=== PATIENT | female | born 1955 | race Caucasian/White ===

== ENCOUNTER 2018-01-04 02:47 | Emergency (ER) | payer OTHER, SELFPAY ==
[2018-01-04 02:47] VITALS: BP 134/71; PULSE 61; RESP 19; TEMP 37.1; O2SAT 96; BMI 35.1
[2018-01-04 03:27] LABS: Bacteria 0 SEEN /hpf (None Seen); Mucous, Urine 0 SEEN /hpf (<or=2+); Red Blood Cells-Urine 0 SEEN /hpf (0-5); Squamous Epithelial Cells - UA 0 SEEN /hpf (5-10); White Blood Cells 0 SEEN /hpf (0-5)
[2018-01-04 03:30] LABS: Absolute Lymphocyte Count 2.03 X10^3/ul (0.83-4.51); Absolute Neutrophil Count 3.3 X10^3/uL (2.0-7.7); Basophil# 0.02 X10^3/uL; Basophil% 0.3 % (0-1); Eosinophil# 0.19 X10^3/uL; Eosinophils% 3.1 % (0-5); Hematocrit 39.8 % (37-47); Hemoglobin 13.2 g/dl (12.0-15.0); Lymphocyte # 2.03 X10^3/ul (4.0); Lymphocyte % 33.1 % (19-41); Mean Corp Hgb Conc 33.2 g/gl (32-36); Mean Corpuscular Hgb 29.4 pg (27.0-32.0); Mean Corpuscular Volume 88.6 fL (81-99); Mean Platelet Vol. 10.1 fl (6.2-12.0); Monocyte# 0.61 X10^3/uL; Neutrophil # 3.27 X10^3/uL (2.7-7.7); Neutrophil % 53.3 % (47-70); Platelet Count 216 K/mm3 (150-450); RBC Distribution Width CV 14.4 % (11.6-14.6); RBC Distribution Width SD 46.6 fl (35.1-43.9); Red Blood Count 4.49 M/mm3 (4.2-5.4); White Blood Count 6.1 K/mm3 (4.4-11.0)
[2018-01-04 03:32] LABS: POSITIVE COUNT NO; POSITIVE DIFFERENTIAL NO; POSITIVE MORPHOLOGY NO
[2018-01-04 03:40] LABS: Color, Urine Straw (Yellow); Glucose, Dipstick Normal (Normal); Ketone-Dipstick Negative (Negative); Leukocyte Esterase-Dipstick 25 /ul (Negative); Nitrite-Dipstick Negative (Negative); Occult Blood-Urine 25 /ul (Negative); Protein-Dipstick Negative (Negative); Urine Bilirubin Dipstick Negative (Negative); Urine Clarity Clear (Clear); Urine Urobilinogen Normal (Normal)
[2018-01-04 03:49] LABS: Anion Gap 8 (5-15); BUN 17 mg/dL (7-18); BUN/Creat Ratio 19.1 RATIO (10-20); Calcium,Total 8.7 mg/dL (8.5-10.1); Chloride 109 mmol/L (98-107); Creatinine, Serum 0.89 mg/dL (0.55-1.02); EST Glomerular Filtration Rate 69 mL/min (>60); Est Glom Filt Rate - Afr Amer 83 mL/min (>60); Estimated Creatinine Clearance 62.14 ml/min; Glucose 121 mg/dL (74-106); Potassium 4.1 mmol/L (3.5-5.1); Sodium Level 144 mmol/L (136-145)
[2018-01-04 07:17] VITALS: BP 121/74; PULSE 60; RESP 18; O2SAT 94
[2018-01-04] MEDS: 0.9% Normal Saline 1,000 ML 200 ML IV (07:17)
--- NOTE | 2018-01-04 07:30 | ED.VISSUMM ---
- ER Visit Summary Date of Service: 01/04/18 Chief Complaint: Abdominal pain History of Present Illness: The patient is a 62 F patient states sudden right lower abdominal pain burning in nature starting at midnight. More intense initially now it is mild. No nausea or vomiting. No diarrhea. Had a bowel movement midnight states helped her symptoms. No fever, chills, sweats. Still with right lower back pain for years with with movement. No urinary symptoms. No history of kidney stones. No surgeries in the past. Patient states had a colonoscopy this past October by Dr. Brand that was negative. States she has been having on and off similar symptoms in the past with workups that were negative. However states is more intense this evening. Past medical history of GERD and hypothyroid. Physical Examination: General: Alert and oriented ?3, no acute distress HEENT: Normocephalic, atraumatic. Moist mucosa membranes Neck: supple, nontender. Cardiovascular: Regular rate and rhythm, no murmurs Respiratory: Normal breath sounds, symmetric, no distress Abdomen: Soft, mild tenderness right lower quadrant, no rebound or guarding. Normal bowel sounds. Negative Rovsing's, negative obturators, negative psoas. Back: No CVA tenderness. No rash. Extremities: Nontender, no edema, pulses intact ?4 Neuro: no focal neurological deficits. Test Results: WBC 6.1 hemoglobin 13.2. Urine leukocytes 25 blood of 25. Noncontrast CT scan negative, however no visualization of the appendix. Oral contrast focal CT of the appendix ordered and is pending. Emergency Department Course and Treatment: Patient declines any medications. IV is placed check labs shows no acute findings. Noncontrast CT was negative with nonvisualized appendix. Reevaluation at 0545, states had mild increasing pain however abdomen remains soft without guarding or rebound. Discussed with patient obtaining re-CT with oral contrast for further evaluation for which she agrees. She declines any additional medications. IV fluids were given. 0800: Contrast CT notes normal appendix. Reevaluation symptoms subsided she is nontender abdomen. Discussed with patient signs and symptoms to return to the ED. Otherwise should follow-up with her PCP. All questions were answered. Treatment Plan: [] Disposition: Discharge Impression: Right lower quadrant abdominal pain This note was generated with [employer] dictation software. It may contain incorrect words, spelling, and punctuation that were not noted in review of the chart prior to signing ED Disposition - Plan for ED Patient: Disposition: Home or Assisted Living Chief Complaint: Abd Pain Diagnosis: Right lower quadrant abdominal pain Instructions: ED Abdominal Pain Unkn Cause Referrals: Larry Holbrook [Primary Care Provider] - 3-5 Days
[2018-01-04 08:26] VITALS: BP 124/74; PULSE 62; RESP 16; O2SAT 97
== END 2018-01-04 08:30 | disposition home or self-care (01) ==
PROVIDERS: Emergency Provider Emergency Medicine; Family Provider Family Medicine; PCP Family Medicine
DX: R10.31 Right lower quadrant pain (principal); K21.9 Gastro-esophageal reflux disease without esophagitis; E03.9 Hypothyroidism, unspecified; M54.5 Low back pain
CPT/HCPCS: 72192; 74176; 80048; 81001; 85025; 96360; 96361; 99283; J7030; A4216

== ENCOUNTER 2020-04-29 15:59 | Emergency (ER) | payer OTHER, SELFPAY ==
[2020-04-29 16:00] VITALS: BP 156/82; PULSE 79; RESP 16; TEMP 36.2; O2SAT 98; BMI 32.4
--- NOTE | 2020-04-29 16:12 | ED.VIS.GEN ---
History of Present Illness Chief Complaint: Upper Extremity Injury Narrative: Patient is a 64-year-old female who presents with a left wrist fracture. She was moving a ladder this morning and fell onto her left side. She called her primary care physician and had outpatient x-rays done. He called her today and said that she did have a wrist fracture and to go to the emergency department for further care. She denies any numbness tingling weakness. She denies any head injury loss of consciousness injury to the extremities chest abdomen or back. She is not anticoagulated. She otherwise has been well with no recent illness and no other complaints. Past Medical History - Allergies and Home Meds Allergies/Adverse Reactions: Allergies Penicillins Allergy (Verified 04/29/20 16:01) Unknown Primary Care Physician: Larry Holbrook MD [Primary Care Provider] - Past Medical History: - - GERD, hypothyroidism, hyperlipidemia Smoking Status: Never smoker Review of Systems All systems negative except as indicated General: Denies: Fever Eyes: Denies: Visual changes - bilaterally ENT: Denies: Bilateral ear pain Cardiovascular: Denies: Chest pain Respiratory: Denies: Dyspnea Gastrointestinal: Denies: Abdominal pain Musculoskeletal: Reports: Extremity Pain Skin: Denies: Rash Neurological: Denies: Headache Physical Exam Vital Signs/Narrative: Vital Signs Temp Pulse Resp BP Pulse Ox 04/29/20 16:00 97.1 F L 79 16 156/82 H 98 Inital Vital Signs reviewed: Yes General: Well nourished Head: Normocephalic Eyes: EOMI ENT: Moist mucous membranes Neck: Supple Cardiovascular: Regular rate Respiratory: No distress Extremities: - - Patient has soft tissue swelling and tenderness at the left wrist no bony deformity easily palpable radial pulse brisk capillary refill normal sensation and distal motor function no tenderness at the hand elbow or shoulder Skin: Normal color Neurological: Alert Diagnostic/Tx/Re-eval Impressions Wrist X-Ray 04/29/20 16:15 IMPRESSION: Fracture distal radius Electronically Signed: Brent Peña MD at 16:34 EST , Service support , 04/29/20 16:15 Wrist min 3 Views [RAD] Stat - Medical Decision Making 3 view left wrist x-ray was obtained. On my interpretation this shows an impacted distal radius fracture. Patient was placed in an AP Ortho-Glass wrist splint fabricated by myself. Wrist x-ray read by radiology agrees with radius fracture. Patient is neurovascularly intact after splint application. Pain is well controlled. She was advised on anti-inflammatory if she does not believe she will need anything stronger. Patient was referred to orthopedics on-call, Dr. Armenta. Patient discharged. She understands to return for new or worsening symptoms was advised on signs and symptoms to monitor for including with regards to the splint. ED Disposition - Plan for ED Patient: Disposition: Home or Assisted Living Diagnosis: Distal radius fracture, left Instructions: ED Fracture, Wrist, General Referrals: Larry Holbrook MD [Primary Care Provider] - Herbert Armenta DO [STAFF PHYSICIAN] -
--- NOTE | 2020-04-29 16:15 | RAD_ITS ---
STUDY: X-RAY - LEFT WRIST REASON FOR EXAM: Female, 64 years old. fall, left wrist pain TECHNIQUE: 3 view(s) of the wrist were obtained. COMPARISON: None. FINDINGS: Nondisplaced comminuted intra-articular fracture distal radius. Normal radiocarpal articulation. Normal distal radioulnar articulation. Normal carpal bones. Normal carpal articulations. Normal carpometacarpal articulation of the thumb. Normal second through fifth carpometacarpal articulations. Normal visualized metacarpal bones. The soft tissue structures are unremarkable. RAD/Wrist min 3 Views IMPRESSION: Fracture distal radius Electronically Signed: Brent Peña MD at 16:34 EST , Service support ,
[2020-04-29 17:01] VITALS: BP 145/77; PULSE 72; RESP 18
== END 2020-04-29 17:02 | disposition home or self-care (01) ==
PROVIDERS: Emergency Provider Emergency Medicine; PCP Family Medicine
DX: S52.592A Other fractures of lower end of left radius, initial encounter for closed fracture (principal); E03.9 Hypothyroidism, unspecified; E78.5 Hyperlipidemia, unspecified; K21.9 Gastro-esophageal reflux disease without esophagitis; Z88.0 Allergy status to penicillin; W18.30XA Fall on same level, unspecified, initial encounter; Y92.9 Unspecified place or not applicable; Y99.9 Unspecified external cause status
CPT/HCPCS: 29125; 73110; 99282

== ENCOUNTER → 2020-05-08 07:52 | Outpatient (CLI) | payer OTHER, SELFPAY ==
[2020-05-04 14:09] VITALS: BMI 32.4
[2020-05-06 11:56] VITALS: BMI 32.4
--- NOTE | 2020-05-08 07:51 | CT_ITS ---
STUDY: CT SCAN OF THE LEFT WRIST WITHOUT CONTRAST REASON FOR EXAM: Female, 64 years old. LT WRIST FRACTURE 04/29 RADIATION DOSAGE (If Supplied By Facility): CTDIvol = ( 24.58 ) mGy, DLP = ( 382.37 ) mGycm. Individualized dose optimization techniques were used for this CT.? TECHNIQUE: Multiple axial cuts were obtained through the region of the wrist without intravenous contrast infusion. Sagittal and coronal reconstruction images were obtained. COMPARISON: Radiographs of the wrist of 04/29/2020. FINDINGS: Comminuted intra-articular nondisplaced fracture of the distal radius is again seen. The distal ulna is intact. The distal radioulnar articulation is unremarkable. The carpal bones appears to be intact. The carpal articulations is unremarkable. The carpometacarpal joints are unremarkable. There is still is in cast. There is soft tissue swelling. CT/Extremity Upper without Contra IMPRESSION: 1. Comminuted intra-articular nondisplaced fracture of the distal radius. 2. Small nondisplaced chip fracture of the triquetrum. 3. No evidence of dislocation. Electronically Signed: Ish Ramos MD at 8:43 EST Tel , Service support ,
== END ==
PROVIDERS: PCP Family Medicine; Referring Provider Physician Assistant; Visit Provider Physician Assistant
DX: S52.502A Unspecified fracture of the lower end of left radius, initial encounter for closed fracture (principal)
CPT/HCPCS: 73200

== ENCOUNTER 2020-05-12 08:05 | Day surgery (SDC) | payer OTHER, SELFPAY ==
[2020-05-06 11:56] VITALS: BMI 32.4
--- NOTE | 2020-05-11 13:19 | EKG12_ITS ---
Test Reason : PREOP Blood Pressure : / mmHG Vent. Rate : 061 BPM Atrial Rate : 061 BPM P-R Int : 174 ms QRS Dur : 086 ms QT Int : 428 ms P-R-T Axes : 067 049 061 degrees QTc Int : 430 ms Normal sinus rhythm Normal ECG Confirmed by PARK CHINO, ALDAIR ([id number]), index editor KAYLA DARDEN ([id number]) on 05/12/2020 9:26:29 AM Referred By: Mel Hale Confirmed By:ALDAIR NICK MD
[2020-05-11 13:47] LABS: Hematocrit 41.4 % (37-47); Hemoglobin 13.1 g/dL (12.0-15.0); Mean Corp Hgb Conc 31.6 g/dL (32-36); Mean Corpuscular Hgb 28.7 pg (27.0-32.0); Mean Corpuscular Volume 90.8 fL (81-99); Mean Platelet Vol. 9.7 fl (6.2-12.0); Platelet Count 230 K/mm3 (150-450); RBC Distribution Width CV 14.3 % (11.6-14.6); RBC Distribution Width SD 47.9 fl (35.1-43.9); Red Blood Count 4.56 M/mm3 (4.2-5.4); White Blood Count 5.7 K/mm3 (4.4-11.0)
[2020-05-12] VITALS (7 sets, daily range): BP systolic 107–126; BP diastolic 62–71; PULSE 60–75; RESP 15–16; TEMP 36.1–36.3; O2SAT 92–98; BMI 33.8
[2020-05-12] MEDS: Lactated Ringers 1,000 ML 100 ML IV ×2 (08:51→11:56)
--- NOTE | 2020-05-12 09:25 | PCM.HP.BLA ---
History and Physical I have re-examined the patient. There are no clinical changes since date of exam. Intake Intake Visit Reasons: LEFT WRIST Is patient in pain?: Yes Allergies Penicillins Allergy (Mild, Verified 05/10/20 09:31) Rash [facility] Medical History (Updated 05/04/20 @ 14:15 by Felicia Payne) Hypothyroid (Acute) Surgical History (Updated 05/04/20 @ 14:13 by Felicia Payne) H/O laparoscopy (Acute) Family History (Updated 05/04/20 @ 14:14 by Felicia Payne) Father Diabetes Mother Parkinson disease Social History (Updated 05/10/20 @ 11:36 by NISA Haney) household members: spouse housing: house Smoking Status: Never smoker alcohol intake: never what type of physical activity do you participate in: none do you feel safe at home: Yes HPI LEFT WRIST: Details: Parts of this documentation were recorded by a scribe, this documentation accurately reflects the service provided and the decisions made by me, NISA Navas 05/10/20 0930. ALFRED DE PAZ is a 64 year old F here today for a followup on her left wrist fracture. Patient states that her pain is decreasing and she is not taking any pain medications. She continues to have finger swelling although it has decreased. Denies numbness, tingling or other associated symptoms. She has not removed her splint. She had a CT scan which is here for review. [facility] ([place] Reports joint pain, Reports joint swelling, Reports stiffness Skin/Breast Reports system reviewed and no additional complaints, except as docu Neuro Yes system reviewed and no additional complaints, except as docu Ortho Exam Right Wrist/Hand Skin/Wound: Yes Swelling, No Ecchymosis Left Wrist/Hand Skin/Wound: Yes Swelling, No Ecchymosis, Yes capillary refill normal, No erythema Left Wrist: Yes TTP Fracture site; no ROM-Extension 0-60, no ROM-Flexion 0-80, no ROM-Pronation 0-80 or no ROM-Supination 0-90 WRIST: Patient presents for recheck of left wrist. Wrist was still immobilized in a clamshell splint. This was taken down quick inspection of the left wrist. No ecchymosis noted. Still some minor swelling as well as puffiness in the fingers. She does have normal sensation in fingers. Normal capillary refill. Normal distal radial pulses. There is evident tenderness on palpation of distal radius at the site of fracture. Patient had intact motor function of the fingers with some decreased to swelling and stiffness. Normal flexion and extension of the elbow. Did not evaluate pronation and supination due to fracture. Assessment & Plan Problems 1. Other closed intra-articular fracture of distal end of left radius with routine healing, subsequent encounter S52.959O Plan Patient presents the office today for follow-up of her left wrist fracture following CT scan. Images as well as impression were discussed with patient in office today. Images show evidence of comminuted intra-articular fracture of the distal radius with minimal displacement. At this time we discussed the concerns with comminution and the length of time it takes to heal this and the concerns with radiocarpal arthritis as well as any change due to shortening from osteoporosis. At this time with the intra-articular component and the other neck of the fracture it is warranted that she proceed with ORIF of the left distal radius. Risks and benefits of the surgery were discussed with patient including blood loss, blood clot, infection, neurovascular injuries, failure of procedure, loss of limb loss of life from anesthesia as well as COVID-19 risks. Patient understands these and all of her questions were answered to her satisfaction today. Surgical consent was signed in office today. Patient be contacted by our office to set up surgery date. She will be contacted by surgery department for preanesthesia/presurgery testing to include a COVID-19 test. Patient has any other questions she can notify our office in the meantime. I did discuss again with patient that I will have to discuss with his surgeon and make sure that his implant however we did discuss this at her previous visit to include the surgeon and that was tentative plan at that point. Patient will follow up in our office postop as directed. No other questions or concerns at this time. This note was generated with [employer] dictation software. It may contain incorrect words, spelling, and punctuation that were not noted in checking the note before signing. Coding Level of Care Code Off vis,est,level 2 Diagnoses Other closed intra-articular fracture of distal end of left radius with routine healing, subsequent encounter S59.324F ??Encounter type: subsequent encounter ??Fracture type: closed ??Fracture morphology: other intra-articular ??Fracture healing: with routine healing
--- NOTE | 2020-05-12 09:26 | PCM.DC.ORTHO ---
Discharge Diet: No Restrictions - Leave dressing clean dry and intact, may use fingers as tolerated, call with concerns Discharge Activity: May Not Drive May shower in (days): 1 Ice area for (Minutes): 20 - Every hour while awake. Weight Bearing Status: Weight bearing as tolerated Keep extremity elevated above heart level: Operative Extremity Call your doctor if your incision/area has: Continuous Slow Oozing, Sudden Increased Bleeding, Increased Pain/ Swelling, Increased Redness, Foul Smelling Discharge Call your doctor if you observe: Fever of 101 or Higher, Coldness, Increased Pain, Numbness or Tingling, Change in Color, Calf discomfort Allergies/Adverse Reactions: Allergies Penicillins Allergy (Mild, Verified 05/12/20 08:07) Rash Medications to take at Discharge levothyroxine 50 mcg tablet 50 mcg PO DAILY tab 05/04/20 meloxicam 15 mg tablet 15 mg PO DAILY tab 05/04/20 omeprazole 20 mg capsule,delayed release 20 mg PO DAILY PRN 05/04/20 rosuvastatin 10 mg tablet 5 mg PO DAILY tab 05/04/20 Oxycodone HCl/Acetaminophen [Percocet 5/325] 1 - 2 tab PO Q6H PRN PRN 5 Days #28 tab 05/12/20 The following prescriptions were given: Oxycodone HCl/Acetaminophen [Percocet 5/325] 1 - 2 tab PO Q6H PRN PRN 5 Days #28 tab PRN Reason: Pain Transmission Status: Received by [facility] Primary Care Physician: Larry Holbrook MD [Primary Care Provider] - Test Results: Test results from this visit will be discussed in further detail at your follow-up appointment, if applicable. Please Follow Up With: Mel Hale, - [phone]
--- NOTE | 2020-05-12 09:26 | PCM.OPRPT ---
Report of Operation Date of Procedure: 05/12/20 Pre-Operative Diagnosis: left intraarticular distal radius fracture Post-Operative Diagnosis: same Surgery/Procedure Performed:: orif left distal radius belt turner: None belt turner: Robbie Sanches Type of Anesthesia:: General/Regional Anesthesiologist: Salomón Steele Estimated Blood Loss (mL): min Fluids Replaced: 1000ml lr Description of Procedure: Preop note Patient is a 64-year-old female fell onto left outstretched hand. Pain deformity seen in the emergency room to have a distal radius fracture seen in our office CT scans confirms intra-articular component patient elected proceed with left ORIF. Risk benefits and alternative surgery discussed with patient. Risk including but not not limited to blood loss, blood clot, infection, neurovascular, failure procedure, loss of life and loss of limb. Patient is aware likely with ORIF of the left wrist. Operative note Patient seen and examined preoperative holding area. Left wrist was marked. Patient brought to the operating placed supine on the operating table. 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 Left arm was prepped and draped usual sterile technique with a tourniquet around her upper thigh arm. All bony promises well-padded SCDs placed on her bilateral lower extremity. We marked our incision for our distal radius ORIF using fluoroscopy to ensure adequate distal and proximal extension. The remains also palpated the FCR to ensure that was over the FCR tendon. We then elevated exsanguinated the arm to a pressure of 200 and to increase the tourniquet to a pressure of 250 torr. Timeout was performed. Then made about a 4 cm incision starting at the wrist crease and about and extending proximally. We dissected down with tenotomies the level of the FCR FCR was then released and brought ulnarly ensuring that we protected all neurovascular structures at all times. Then continue our dissection down to level the pronator quadratus was excised sharply off of its radial border. We then use a carroll elevator to swept off the bone. We did visualize our fracture which was reduced with combination of a bone pick and irrigation. We then fixated a narrow angled 2.4 distal radius Synthes plate. We placed 2 cortical screws in the lunate facet as preoperatively we did ascertain that that was a piece that was most depressed we did flex the wrist at all during this to maintain and increase her anatomic alignment. Noted in multiple planes good anatomical alignment in both AP lateral and 20degree lateral as well. After placing the 2 cortical screws limit limit would also place filled and the remaining distal screws then placed our 2 shaft screws. Please note that prior to placing our cortical screws in the distal aspect of the plate we did secure the plate to the bone using 2 K wires and then made sure that the plate was at adequate distance from the watershed area and both distal and proximal area. We then drilled 1.8 for our distal and then the two-point note for our 2.4 cortical screws. We irrigated with copious muscle sterile saline please note that we drilled and measured appropriately for all screw holes and then used fluoroscopy to make sure that we had good length and no articular breach of the screws. We then deflated the tourniquet to ensure there is no active bleeding which there was none. We then irrigated and irrigated the incision with copious sterile saline we closed use a 2-0 Vicryl to tack the pronator quadratus down to its periosteum over the plate. We then closed the skin with 4-0 Vicryl in a running 4-0 Monocryl. Sterile dressings and a splint was applied to the left lower upper extremity. Patient taught procedure well no complications transferred recovery room. see chart for screw lengths Postoperative note Please note patient received a preoperative regional block Pharmacy has prescription We will call Call with increased pain numbness tingling or further issues arise Dragon disclaimer this note was generated with [employer] dictation software. It may contain incorrect words, spelling, and punctuation that were not noted in checking the note before signing. Grafts/Implants Used: synthes 2.0 dcp plate
--- NOTE | 2020-05-12 09:59 | RAD_ITS ---
STUDY: X-RAY - LEFT WRIST REASON FOR EXAM: ORIF distal radial fracture. TECHNIQUE: 3 intraoperative images of the wrist were obtained. COMPARISON: Radiographs 04/29/2020. FINDINGS: There is an orthopedic plate and screws transfixing a distal radial fracture in anatomical alignment and position. Electronically Signed: Keith Reich MD at 14:14 EST Tel , Service support , RAD/Wrist min 3 Views
[2020-05-12] MEDS: Mupirocin Ointment 22gm Tube 1 APPLIC (10:56)
== END 2020-05-12 14:00 | disposition home or self-care (01) ==
LOC: SDC 08:05 → AC 08:06
PROVIDERS: Anesthesiology; PCP Family Medicine; Referring Provider Orthopaedic Surgery; Visit Provider Orthopaedic Surgery
PROC: (CPT 25608; principal; 2020-05-12 09:15)
DX: S52.572D Other intraarticular fracture of lower end of left radius, subsequent encounter for closed fracture with routine healing (principal); W19.XXXD Unspecified fall, subsequent encounter; E03.9 Hypothyroidism, unspecified; Z88.0 Allergy status to penicillin
CPT/HCPCS: 01830; 25608; 36415; 73110; 76000; 84443; 85027; 87426; 93005; C1713; C9803; J7120; J2405

== ENCOUNTER 2020-08-12 15:30 | Outpatient (RCR) | payer OTHER, SELFPAY ==
[2020-05-25 09:37] VITALS: BMI 32.4
--- NOTE | 2020-06-02 15:29 | HP.OTEVAL_ITS ---
Patient's Visit Information ALFRED DE PAZ is a 64 year old F, referred to Occupational Therapy by Dr. Larry Holbrook MD, with a diagnosis of left distal radius fx. Date of Evaluation: 06/02/20 Occupational Therapist: SYLVIA Arizmendi/Bennie, CHT - Subjective This 64 year old female was seen for OT eval with dx of left distal radius fx. pt states she was moving a ladder and pts had a fall. 04/29/20. pt had ORIF on 2020. pt arrives today with limited ROM of wrist and digits along with forearm. pt has concerns with swelling and what she is allowed to do with her arm. 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 Pt will demo an increase in lateral and tripod pinch by 2# to increase pts independent with opening baggies, containers at PLOF by D/C. Goal:: Pt will demo an increase in wrist ROM equal to unaffected wrist to return pt to PLOF with grooming, dressing and home mtg tasks by D/C. Pt will demo an increase in forearm supination by 60* or greater to increase pts ind. With ADls and IADLS by d/c. Pt will demo the ability to form a composite fist to return to performing BADLs and IADLS at PLOF by d/c. Goal:: Pt will report pain no greater than 1/10 with use of affected hand with BADLs and IADLs by d/c. Goal:: Pt will demo the ability to form a composite fist to hold and receive 10 coins without dropping coins/ and coin manipulation/money mtg. tasks and ind. With manipulating fasteners for dressing by D/C. Goal:: Pt will demo understanding of edema control techniques by end of 2nd session and perform recommendations to control edema. pt will demo a reduction in edema by .5cm to increase pts ROM of digits by d/c Goal:: Pt will demo understanding of scar mtg. by end of 2nd session to increase tissue extensibility to limit scar adhesions and allow full tendons function by d/c. - Rehabilitation General Assessment: pt s/p 3 weeks ORIF of left distal radius fx. pt demo with edema, limited left forearm, wrist and digit ROM increasing need of assist with ADls and IADls. pt would benefit from skilled OT services 2-3 x week for 6 weeks to return pts ROM and strength to functional abilities. Today therapist ed. pt on AROM/ AAROM of left UE, forearm, wrist and digits- edema control and scar mtg. pt demo understanding and agree to POC. Rehabilitation Potential: Good - Anticipated Interventions A/AAROM/PROM, Strengthening, Edema Control, Scar Care, Triggerpoint Release, Desensitization, Sensory Retraining, Modalities, Orthoses, Joint Protection/Energy Conservation, Fine Motor Coord/Wallace - Visit Plan Frequency: 2-3x /Week Duration: 6 Weeks TEXT: Thank you for the opportunity to evaluate your patient. For Medicare and Medicare HMO plans, please review the plan of care and approve it. It will need to be FAXED BACK to us at [phone] for Medicare purposes. Please let me know if there are questions or concerns regarding this plan of care. Physician Signature: Date:
--- NOTE | 2020-11-09 07:51 | HP.OTDCSUM_ITS ---
It has been my pleasure to treat ALFRED DE PAZ under orders from Dr. Mel Hale DO, for the diagnosis of left distal radius fx for a total of 17 visit(s). Please see the following information for a summary of their discharge status. % Improvement: 25 Objective/Function: left wrist 65/50. left UD 30 RD 30. 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 left lateral pinch 12#. left tripod pinch 10# Patient Goals: Regain Mobility, Use Hand/Wrist/Arm Normally Again, Increase ROM, Be More Independent in ADLS Goal:: PT will demo an increase in building and grounds supervisor strength by 20# to increase independent with basic occupations of daily living to return pt to PLOF by D/C. Pt will demo an increase in lateral and tripod pinch by 2# to increase pts independent with opening baggies, containers at PLOF by D/C. Goal:: Pt will demo an increase in wrist ROM equal to unaffected wrist to return pt to PLOF with grooming, dressing and home mtg tasks by D/C. Pt will demo an increase in forearm supination by 60* or greater to increase pts ind. With ADls and IADLS by d/c. Pt will demo the ability to form a composite fist to return to performing BADLs and IADLS at PLOF by d/c. Goal:: Pt will report pain no greater than 1/10 with use of affected hand with BADLs and IADLs by d/c. Goal:: Pt will demo the ability to form a composite fist to hold and receive 10 coins without dropping coins/ and coin manipulation/money mtg. tasks and ind. With manipulating fasteners for dressing by D/C. Goal:: Pt will demo understanding of edema control techniques by end of 2nd session and perform recommendations to control edema. pt will demo a reduction in edema by .5cm to increase pts ROM of digits by d/c Goal:: Pt will demo understanding of scar mtg. by end of 2nd session to increase tissue extensibility to limit scar adhesions and allow full tendons function by d/c. Plan: pt to follow up in 2 weeks - it is now 11/09/20 and pt has not called with questions or concerns pt is d/c at this time with her HEP. If there are questions or concerns regarding this patient's occupational therapy, please fell free to call me at [phone]. Thank you for the referral of this patient. Sincerely, Mariely Alonso, OTR/L, CHT
== END 2020-08-12 19:00 | disposition home or self-care (01) ==
LOC: OT 15:30
PROVIDERS: PCP Family Medicine; Referring Provider Orthopaedic Surgery; Visit Provider Orthopaedic Surgery
DX: Z47.89 Encounter for other orthopedic aftercare (principal)
CPT/HCPCS: 97110; 97140; 97166; 97530

== ENCOUNTER 2020-12-30 10:00 | Outpatient (RCR) | payer OTHER, SELFPAY ==
--- NOTE | 2020-08-24 07:07 | HP.PTEVAL_ITS ---
Patient's Visit Information ALFRED DE PAZ is a 65 year old F referred to Physical Therapy by Dr. Larry Holbrook MD with a diagnosis of Tendinopathy of rotator cuff, LBP with L sciatica. Date of Evaluation: 08/23/20 Physical Therapist: Isra Eddy DPT - Visit Plan Frequency: 2x /Week Duration: 4 Weeks Plan: Increase AROM and PROM for bilateral shoulders. Scapular stregthening exercises for both shoulders, UBE, Kinesis strengthening exercises. - Subjective Pt had a fall 04/29/2020 and fell onto L side when trying to move a ladder over. She has surgery 05/12/2020 on wrist ORIF. Patient is right handed. She has L shoulder pain and LBP that radiates into L gluteal region. Closing/opening her car door increases her pain as well as reaching out to get food at fast foot restaurants. She states pain is mainly in the lateral portion of her shoulder and can radiate down distally, also at anterior portion by the coracoid process; it feels weird. Certain movements (flexion, abduction, ER) give her an ugly dull pain. When she lets her arm hang down, pain will subside. LBP is most present at end of day when shes walked longer distances. She has had back pain persiting for 1+ years. She saw a Dr. for it, xray showed some arthritis. She has pain that extends down into her Left leg. Her LBP is not bad in the morning. She has issues with sleep due to shoulder and arm pain. Extension movements doesnt help her back pain; she tends to flex forward to try to alleviate her symptoms. 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 She wants to get back to [employer]. - Pain L shoulder Pain Intensity (Out of 10): 2 Pain Intensity Range: 2, 10 Lumbar spine Pain Intensity (Out of 10): 0 Pain Intensity Range: 0, 10 - Objective Shoulder. ROM: AROM: R flex: 121 degrees -very painful L flex: 113 degrees- minor pain compared to R shoulder R abd: 105 degrees L abd:103 degrees R ER: 42 degrees L ER: 38 degrees. Max limited IR AROM and Max limited ER AROM. -PROM was more painful than AROM for L shoulder; all 4 directions limited in motion due to pain; L shoulder ABD PROM 90 degrees. - lowering arms down gave her pain bilaterally. -pain and limited ROM with R shoulder too due to overuse from L wrist/shoulder injury. MMT: R shoulder F: 4-/5 L shoulder F: 3+/5 R shoulder abd: 3+/5 L shoulder abd: 3+/5 R shoulder IR: 5/5 L shoulder IR: 5/5 R shoulder ER: 4+/5 L shoulder IR: 4-/5. Neuro: WNL sensation bilaterally; 1/3 biceps tendon reflex. Palpation: tender to light touch at L coracoid procress at biceps tendon and supraspinatus tendon. - will do lumbar spine eval next session - Goals Goal 1:: STG: Decrease pain by 50% in left shoulder to aid with sleeping through the night. Goal Time Frame: 2-4 Weeks Goal 2:: LTG: Decrease pain by 75% bilaterally in shoulders so patient can resume caring for grandchildren. Goal Time Frame: 4-6 Weeks Goal 3:: STG: Increase AROM of R and L shoulder flexion and abduction by 10-15 degrees. Goal Time Frame: 2-4 Weeks Goal 4:: LTG: Increase L shoulder strength by 1-2 muscle grade to aid in caring for grandchildren and ADLs. Goal Time Frame: 4-6 Weeks Goal 5:: LTG: I with HEP. Goal Time Frame: 4-6 Weeks Goal 6:: STG: Asses L sided sciatica next visit. Goal Time Frame: 1 Week - Rehabilitation Potential Physical Therapy Diagnosis: Pain, weakness and decreased ROM bilaterally secondary to tendinopathy of rotator cuff. She had a fall on 04/29/2020 which could have been a cause for RTC pathology or irritation of supraspinatus tendon/proximal biceps tendon. Pt. would benefit from PT to increase her ROM, progress strength and get back to all functional use of LUE. Unable to asses L sciatica this date due to time constraints, will asses next visit. Rehabilitation Potential: Good - Anticipated Interventions Patient/Client Instruction: Educate patient on: Condition, Plan of Care For the Purpose of:: To decrease pain, To decrease swelling/inflammation, To increase ROM, To improve muscle performance and motor function, To improve ability to perform ADL's, To improve ability of physical actions for home/community/work/leisure, To increase flexibility/ROM Therapeutic Exercise to Include: Strength training, Postural training, Passive ROM, Active ROM, Dynamic Lumbar Stabilization, Scapular Strength/Stabilization For the Purpose of:: To decrease pain, To decrease swelling/inflammation, To increase ROM, To improve muscle performance and motor function, To improve ability to perform ADL's, To increase flexibility/ROM Manual Therapy Techniques to Include: Passive ROM For the Purpose of:: To increase ROM, To increase flexibility/ROM Cryotherapy (ice pack, ice massage): Yes Thermo therapy (hot pack): Yes Ultrasound (thermal/non thermal): Yes For the Purpose of:: To decrease pain, To decrease swelling/inflammation Thank you for the opportunity to evaluate your patient. For Medicare and Medicare HMO plans, please review the plan of care and approve it. It will need to be FAXED BACK to us at [phone] for Medicare purposes. For Medicare only, by signing this I certify the plan of care. Please let me know if there are questions or concerns regarding this plan of care. Physician Signature: Date:
--- NOTE | 2020-09-28 08:40 | HP.PTREVAL ---
Dr. Larry Holbrook MD, It has been my pleasure to treat ALFRED DE PAZ over the last 9 visits for Tendinopathy of rotator cuff, LBP with L sciatica. Please see the progress note below for an update on the physical therapy plan of care! Subjective: Pt. reports overall doing much better, but is still having greater pain in her back and L sciatica. Pt. reports overall her shoulder is doing better, but still has some twinges if she moves the wrong way. Pt. is more concerned about her LBP and L leg pain at this point in time. She reports her L shoulder is 75% better overall, but her back is only 25% better. Objective/Function: L shoulder ROM: flexion 155deg, abd 155deg, ext- 50deg, functional ER C6, functional IR L3. 4+/5 strength throughout. I would still like her to strengtening and add in some end range stretching for her L shoulder. Pt. agrees. LUMBAR SPINE: flexion min loss increase NW, exten min loss decrease better, SB min loss mild increase NW bilat, rotation min loss increase NW bilat. СВЕТЛАНА- reduced symptoms, REIL- better reduction in symptoms. REIL with PT overpressures decrease even further. Pt. had no pain in prone lying, but did start to come back in standing, but less than previously. Pt. has marked core weakness as well. Plan Plan: I would like to continue with her POC with focus on her lumbar spine at this point in time. Pt. would benefit from extension progression and neutral spine core stability. With her L shoulder I would like her to continue with RTC and deltoid strengthening and continue with end range stretching. Goals Goal 1:: STG: Decrease pain by 50% in left shoulder to aid with sleeping through the night. Goal Time Frame: 2-4 Weeks Goal Progress: Goal Met Goal 2:: LTG: Decrease pain by 75% bilaterally in shoulders so patient can resume caring for grandchildren. Goal Time Frame: 2-4 Weeks Goal Progress: Progressing Goal 3:: STG: Increase AROM of R and L shoulder flexion and abduction by 10-15 degrees. Goal Time Frame: 2-4 Weeks Goal Progress: Goal Met Goal 4:: LTG: Increase L shoulder strength by 1-2 muscle grade to aid in caring for grandchildren and ADLs. Goal Time Frame: 4-6 Weeks Goal Progress: Progressing Goal 5:: LTG: I with HEP. Goal Time Frame: 4-6 Weeks Goal Progress: Progressing Goal 6:: LTG: pt. to have reduced L sided sciatica pain to 0-2/10 pain in L leg allowing for good tolerance to walking and recreational activities. Goal Time Frame: 2-4 Weeks Goal Progress: Progressing Anticipated Interventions Patient/Client Instruction: Educate patient on: Condition, Plan of Care For the Purpose of:: To decrease pain, To decrease swelling/inflammation, To increase ROM, To improve muscle performance and motor function, To improve ability to perform ADL's, To improve ability of physical actions for home/community/work/leisure, To increase flexibility/ROM Therapeutic Exercise to Include: Strength training, Postural training, Passive ROM, Active ROM, Dynamic Lumbar Stabilization, Scapular Strength/Stabilization For the Purpose of:: To decrease pain, To decrease swelling/inflammation, To increase ROM, To improve muscle performance and motor function, To improve ability to perform ADL's, To increase flexibility/ROM Manual Therapy Techniques to Include: Passive ROM For the Purpose of:: To increase ROM, To increase flexibility/ROM Cryotherapy (ice pack, ice massage): Yes Thermo therapy (hot pack): Yes Ultrasound (thermal/non thermal): Yes For the Purpose of:: To decrease pain, To decrease swelling/inflammation Please do not hesitate to contact me at [phone] by phone or if you have questions or concerns regarding this new plan of care! Sincerely, Isra Eddy DPT
--- NOTE | 2020-10-22 10:44 | HP.PTREVAL_ITS ---
Dr. Larry Holbrook MD, It has been my pleasure to treat ALFRED DE PAZ over the last 17 visits for Tendinopathy of rotator cuff, LBP with L sciatica. Please see the progress note below for an update on the physical therapy plan of care! Subjective: Pt. reports overall doing well. She is having less pain in her shoulder, but is still having some days that her back is bothering her. She is having more days that are good than bad, but is still having some bad days. Pt. reports no pain currently. Pt. reports being 70% better overall. Objective/Function: Pt. is overall doing better, she is still having some issues with her her L hip and lumbar spine. Pt. has improved L hip ROM, decreased pain in piriformis with hip IR/ER today. She is still stiff with extension and has provided some relief. She is progressing with core stability exercises as well. Plan Plan: Pt. to be seen in 1 week to determine if she can self manage at this point in time. Goals Goal 1:: STG: Decrease pain by 50% in left shoulder to aid with sleeping through the night. Goal Time Frame: 2-4 Weeks Goal Progress: Goal Met Goal 2:: LTG: Decrease pain by 75% bilaterally in shoulders so patient can resum e caring for grandchildren. Goal Time Frame: 2-4 Weeks Goal Progress: Progressing Goal 3:: STG: Increase AROM of R and L shoulder flexion and abduction by 10-15 degrees. Goal Time Frame: 2-4 Weeks Goal Progress: Goal Met Goal 4:: LTG: Increase L shoulder strength by 1-2 muscle grade to aid in caring for grandchildren and ADLs. Goal Time Frame: 4-6 Weeks Goal Progress: Goal Met Goal 5:: LTG: I with HEP. Goal Time Frame: 4-6 Weeks Goal Progress: Goal Met Goal 6:: LTG: pt. to have reduced L sided sciatica pain to 0-2/10 pain in L leg allowing for good tolerance to walking and recreational activities. Goal Time Frame: 2-4 Weeks Goal Progress: Progressing Anticipated Interventions Patient/Client Instruction: Educate patient on: Condition, Plan of Care For the Purpose of:: To decrease pain, To decrease swelling/inflammation, To increase ROM, To improve muscle performance and motor function, To improve ability to perform ADL's, To improve ability of physical actions for home/c ommunity/work/leisure, To increase flexibility/ROM Therapeutic Exercise to Include: Strength training, Postural training, Passive ROM, Active ROM, Dynamic Lumbar Stabilization, Scapular Strength/Stabilization For the Purpose of:: To decrease pain, To decrease swelling/inflammation, To increase ROM, To improve muscle performance and motor function, To improve ability to perform ADL's, To increase flexibility/ROM Manual Therapy Techniques to Include: Passive ROM For the Purpose of:: To increase ROM, To increase flexibility/ROM Cryotherapy (ice pack, ice massage): Yes Thermo therapy (hot pack): Yes Ultrasound (thermal/non thermal): Yes For the Purpose of:: To decrease pain, To decrease swelling/inflammation Please do not hesitate to contact me at [phone] by phone or if you have questions or concerns regarding this new plan of care! Sincerely, BARBARA StinsonT
--- NOTE | 2020-12-30 15:43 | HP.PTREVAL ---
Dr. Larry Holbrook MD, It has been my pleasure to treat ALFRED DE PAZ over the last 22 visits for Tendinopathy of rotator cuff, LBP with L sciatica. Please see the progress note below for an update on the physical therapy plan of care! Subjective: Pt. reports overall doing better, but still has occurrence of pain going down her leg, but less. Pt. reports being HEP compliant. Objective/Function: ROM: lumbar spine: Pt. has good ROM throughout, ext mod loss increase extension, but does feel like this makes her better. Pt. has tight B hip ER motions, but does tend to increase her L glute pain. MMT: core strenght- poor. BLEs 4+/5 throughout distal LEs, 4/5 throughout B hips. She is progressing but, not quite there with her extension progression. Overall feels improvement for a few days after PT, but starts to come back again then. Plan Plan: Pt. to be seen in 1 week to determine if she can self manage at this point in time. Balance/Gait/Functional tests - Balance/Special Test Scores Quick DASH Score: 9.0900 Goals Goal 1:: STG: Decrease pain by 50% in left shoulder to aid with sleeping through the night. Goal Time Frame: 2-4 Weeks Goal Progress: Goal Met Goal 2:: LTG: Decrease pain by 75% bilaterally in shoulders so patient can resume caring for grandchildren. Goal Time Frame: 2-4 Weeks Goal Progress: Progressing Goal 3:: STG: Increase AROM of R and L shoulder flexion and abduction by 10-15 degrees. Goal Time Frame: 2-4 Weeks Goal Progress: Goal Met Goal 4:: LTG: Increase L shoulder strength by 1-2 muscle grade to aid in caring for grandchildren and ADLs. Goal Time Frame: 4-6 Weeks Goal Progress: Goal Met Goal 5:: LTG: I with HEP. Goal Time Frame: 4-6 Weeks Goal Progress: Goal Met Goal 6:: LTG: pt. to have reduced L sided sciatica pain to 0-2/10 pain in L leg allowing for good tolerance to walking and recreational activities. Goal Time Frame: 2-4 Weeks Goal Progress: Progressing Anticipated Interventions Patient/Client Instruction: Educate patient on: Condition, Plan of Care For the Purpose of:: To decrease pain, To decrease swelling/inflammation, To increase ROM, To improve muscle performance and motor function, To improve ability to perform ADL's, To improve ability of physical actions for home/community/work/leisure, To increase flexibility/ROM Therapeutic Exercise to Include: Strength training, Postural training, Passive ROM, Active ROM, Dynamic Lumbar Stabilization, Scapular Strength/Stabilization For the Purpose of:: To decrease pain, To decrease swelling/inflammation, To increase ROM, To improve muscle performance and motor function, To improve ability to perform ADL's, To increase flexibility/ROM Manual Therapy Techniques to Include: Passive ROM For the Purpose of:: To increase ROM, To increase flexibility/ROM Cryotherapy (ice pack, ice massage): Yes Thermo therapy (hot pack): Yes Ultrasound (thermal/non thermal): Yes For the Purpose of:: To decrease pain, To decrease swelling/inflammation Please do not hesitate to contact me at [phone] by phone or if you have questions or concerns regarding this new plan of care! Sincerely, BARBARA StinsonT
--- NOTE | 2021-04-06 10:30 | HP.PTDCNRP_ITS ---
ALFRED DE PAZ was seen in my office for initial evaluation on 08/23/20. The following Plan of Care was established for this patient: Initial Frequency: 2x /Week Initial Duration: 4 Weeks Patient/Client Instruction: Educate patient on: Condition, Plan of Care For the Purpose of:: To decrease pain, To decrease swelling/inflammation, To increase ROM, To improve muscle performance and motor function, To improve ability to perform ADL's, To improve ability of physical actions for ho me/community/work/leisure, To increase flexibility/ROM Therapeutic Exercise to Include: Strength training, Postural training, Passive ROM, Active ROM, Dynamic Lumbar Stabilization, Scapular Strength/Stabilization For the Purpose of:: To decrease pain, To decrease swelling/inflammation, To increase ROM, To improve muscle performance and motor function, To improve ability to perform ADL's, To increase flexibility/ROM Manual Therapy Techniques to Include: Passive ROM For the Purpose of:: To increase ROM, To increase flexibility/ROM Cryotherapy (ice pack, ice massage): Yes Thermo therapy (hot pack): Yes Ultrasound (thermal/non thermal): Yes For the Purpose of:: To decrease pain, To decrease swelling/inflammation This patient was last seen in our office 12/30/20. Pertinent comments regarding their Physical therapy will appear below: Pt. was seen in PT for both her shoulder and sciatica symptoms. Pt. was doing well initially, but started to levels off. She was independent with her HEP and was to continue on her own. She was to trial for a few weeks to see if she can self manage. Pt. has not been seen in several months and will be DC from PT at this point in time. At this point I will be discontinuing this patient from physical therapy. I would be happy to see this patient again in the future if found appropriate by the physician. Thank you! Isra Eddy, DPT Balance/Gait/Functional tests - Balance/Special Test Scores Quick DASH Score: [phone]
== END 2020-12-30 19:00 | disposition home or self-care (01) ==
LOC: PT 10:00
PROVIDERS: PCP Family Medicine; Referring Provider Family Medicine; Visit Provider Family Medicine
DX: M67.919 Unspecified disorder of synovium and tendon, unspecified shoulder (principal); M54.42 Lumbago with sciatica, left side
CPT/HCPCS: 97012; 97035; 97110; 97140; 97161; 97164; 97530

== ENCOUNTER 2021-03-02 09:30 | Emergency (ER) | payer OTHER, SELFPAY ==
[2021-03-02 09:31] VITALS: BP 149/80; PULSE 69; RESP 16; TEMP 36.3; O2SAT 98; BMI 31.6
--- NOTE | 2021-03-02 09:51 | EDS_ITS ---
HPI History of Present Illness Chief Complaint: Back Informant: patient Narrative Narrative: Patient has been having pain in her left low back for a long time, she states it has been worse in the last several days. She has seen her doctor for this pain in the past, she has had x-rays that may be showed some age- related arthritis, and he try to get an MRI but she states it was denied by insurance. In the last several days she has had worsening of the symptoms, they are going down her left lower leg, and in the last several days into her left thigh and left lower quadrant area. No numbness or tingling including the saddle area. No bowel or bladder dysfunction. Sitting seems to hurt a little worse and make her left lower extremity painful. PFSH PFSH Medical History Hypothyroid Home Medications levothyroxine 50 mcg tablet 50 mcg PO DAILY tab 05/04/20 [History Last Taken 05/12/20] omeprazole 20 mg capsule,delayed release 20 mg PO DAILY PRN 05/04/20 [History Last Taken 05/12/20] rosuvastatin 10 mg tablet 5 mg PO DAILY tab 05/04/20 [History Last Taken Unknown] methylprednisolone 4 mg tablets in a dose pack See Rx Instructions PO PER PKG DIR #21 tab 06/25/20 [Rx Last Taken Unknown] hydrocodone-acetaminophen 1 tab PO Q4H PRN PRN 2 Days #10 tablet 03/02/21 [Rx La st Taken Unknown] prednisone 40 mg PO DAILY #12 tablet 03/02/21 [Rx Last Taken Unknown] Allergy/AdvReac Type Severity Reaction Status Date / Time Penicillins Allergy Mild Rash Verified 03/02/21 09:33 Family History (Updated 05/04/20 @ 14:14 by Felicia Payne) Father Diabetes Mother Parkinson disease Surgical History H/O laparoscopy Social History household members: spouse housing: house Smoking Status: Never smoker alcohol intake: never what type of physical activity do you participate in: none do you feel safe at home: Yes ROS ROS ED Constitutional Constitutional ED: Denies chills or fever(s) Gastrointestinal Gastrointestinal: Denies abdominal pain, constipation, fecal incontinence, nausea or vomiting Genitourinary Genitourinary ED: Reports other Details: no urinary retention ; Denies abdominal discomfort or urinary incontinence Musculoskeletal Musculoskeletal: Reports as per HPI, back pain and extremity pain; Denies neck pain Integumentary Denies rash or wounds Neurologic Neurologic: Denies headache(s), paresthesias or weakness EXAM Physical Exam Const Vital Signs: 03/02/21 09:31 Temperature 97.4 F L Temperature Source Temporal Pulse Rate 69 Respiratory Rate 16 Blood Pressure 149/80 H Blood Pressure Mean 103 Pulse Ox 98 Oxygen Delivery Method Room Air Positive well nourished and well developed General Appearance ED: well developed and NAD HEENT Negative for trauma or tenderness Eyes PERRL and EOMs intact bilaterally Neck full ROM and supple GI normal to inspection, nondistended, normoactive bowel sounds, soft to palpation and non-tender Back/Spine normal to inspection Thoracic Spine / Upper Back: Negative for paraspinal muscle tenderness Lumbar Spine / Lower Back: normal to inspection, ROM limited and straight leg raise negative bilaterally; Negative for lumbar spinal tenderness or paraspinal muscle tenderness Extremity normal to inspection, full ROM and no pedal edema Neuro oriented x3, no sensory deficits noted and gait normal Sensorium / Orientation: alert Motor Exam: strength 5/5 throughout and clonus absent Deep Tendon Reflexes: Rt Patellar (L4): 1+, Lt Patellar (L4): 1+, Rt Ankle (S1): 1+ and Lt Ankle (S1): 1+ Deep Tendon Reflexes Back: Rt Patellar (L4): 1+, Lt Patellar (L4): 1+, Rt Ankle (S1): 1+ and Lt Ankle (S1): 1+ Plantar Reflex: Downgoing: bilateral Psych mental status grossly normal and thought process normal Skin no rashes or lesions noted and no wounds MDM MDM MDM Narrative Medical decision making narrative: This patient does not have any red flag features, and her symptoms are consistent with sensory radiculopathy. Her abdomen is benign and nontender I do not think she needs to be worked up for diverticulitis at this time. She has no GI symptoms. I think symptomatic care is appropriate and I will try her on a course of steroids since she is not a diabetic and less likely to have adverse side effects from a week or less prescription. I advised her to follow-up with her doctor, since her symptoms are worsening, she may now qualify for MR imaging which I think is the next best test. Discharge Plan Triage Chief Complaint: Back ED Provider: Cm Vasques Dx/Rx/DC Orders Clinical Impression: Acute left-sided back pain with sciatica Instructions: ED Sciatica Prescriptions: New hydrocodone-acetaminophen [hydrocodone-acetaminophen] 1 TABLET tablet 1 tab PO Q4H PRN PRN (Reason: Pain) 2 Days Qty: 10 RF: 0 prednisone 20 MG tablet 40 mg PO DAILY Qty: 12 RF: 0 No Action levothyroxine 50 mcg tablet 50 mcg PO DAILY RF: 0 rosuvastatin 10 mg tablet 5 mg PO DAILY RF: 0 methylprednisolone [Medrol (Max)] 4 mg tablets,dose pack See Rx Instructions PO PER PKG DIR Qty: 21 RF: 0 omeprazole 20 mg capsule,delayed release(DR/EC) 20 mg PO DAILY PRN (Reason: GERD) RF: 0 Primary Care Provider: Larry Holbrook Referrals: Larry Holbrook MD [Primary Care Provider] - 3-5 Days Disposition Disposition: Home, Self Care
== END 2021-03-02 10:20 | disposition home or self-care (01) ==
LOC: ED 10:15
PROVIDERS: Emergency Provider Emergency Medicine; PCP Family Medicine
DX: M54.42 Lumbago with sciatica, left side (principal); E03.9 Hypothyroidism, unspecified; Z79.52 Long term (current) use of systemic steroids
CPT/HCPCS: 99282

== ENCOUNTER → 2021-03-24 08:34 | Outpatient (CLI) | payer OTHER, SELFPAY ==
--- NOTE | 2021-03-24 08:39 | RAD_ITS ---
STUDY: X-RAY - ESOPHAGUS (BARIUM SWALLOW) WITH FLUOROSCOPY REASON FOR EXAM: Female, 65 years old. DYSPHAGIA TECHNIQUE: 23 view(s) of the esophagus were obtained following swallowing of barium. FLUOROSCOPY TIME (if supplied): (42 seconds) minutes/seconds COMPARISON: None. FINDINGS: There is no demonstrated esophageal foreign body. There is no demonstrated stricture or mucosal abnormality. Normal gastroesophageal junction, without a demonstrated hiatal hernia. The patient ingested a 12 mm tablet of barium. The barium is trapped at the gastroesophageal junction. There is atherosclerotic tortuosity of the aortic arch and descending thoracic aorta. Normal visualized pulmonary parenchyma. Normal visualized osseous structures of the thorax. RAD/Esophagus Dual Contrast IMPRESSION: The ingested 12 mm tablet of barium is trapped at the gastroesophageal junction. Electronically Signed: Dax Guy MD at 13:34 EST , Service support ,
== END ==
PROVIDERS: PCP Family Medicine; Referring Provider Internal Medicine Gastroenterology; Visit Provider Internal Medicine Gastroenterology
DX: R13.10 Dysphagia, unspecified (principal)
CPT/HCPCS: 74221

== ENCOUNTER 2022-01-28 07:56 | Emergency (ER) | payer MEDICARE, BC, SELFPAY ==
[2022-01-28 07:57] VITALS: BP 139/82; PULSE 55; RESP 16; TEMP 36.6; O2SAT 99; BMI 35.4
--- NOTE | 2022-01-28 08:09 | EDS_ITS ---
HPI History of Present Illness Chief Complaint: Abd Pain Informant: patient Narrative Narrative: 66-year-old female presenting to the emergency room with right-sided abdominal pain. Symptoms began yesterday. They have been constant. She describes a burning-like sensation right side of her abdomen. She notes that yesterday she had steak for lunch and fried fish for dinner. Nothing seems to make it better or worse. She notes nausea but no vomiting no change in bowel habits or urinary symptoms. She has not had any prior abdominal surgeries. No fevers. She states that today it felt better when she got up but was still there so she wanted to be evaluated. [facility] Medical History Hypothyroid Home Medications levothyroxine 50 mcg tablet 50 mcg PO DAILY 05/04/20 [History Last Taken 05/12/20] omeprazole 20 mg capsule,delayed release 20 mg PO DAILY PRN GERD 05/04/20 [History Last Taken 05/12/20] rosuvastatin 10 mg tablet 5 mg PO DAILY 05/04/20 [History Last Taken Unknown] methylprednisolone 4 mg tablets in a dose pack (Medrol (Max)) See Rx Instructions PO PER PKG DIR #21 tabs 06/25/20 [Rx Last Taken Unknown] hydrocodone-acetaminophen 5-325mg 5mg-325mg 1 tab PO Q4H PRN PRN Pain 2 days #10 TABLETS 03/02/21 [Rx Last Taken Unknown] prednisone 20 mg tablet 40 mg PO DAILY #12 TABLETS 03/02/21 [Rx Last Taken Unknown] Allergy/AdvReac Type Severity Reaction Status Date / Time Penicillins Allergy Mild Rash Verified 01/28/22 07:57 Family History Father Diabetes Mother Parkinson disease Surgical History H/O laparoscopy Social History household members: spouse housing: house Smoking Status: Never smoker alcohol intake: never what type of physical activity do you participate in: none do you feel safe at home: Yes ROS ROS ED Constitutional Constitutional ED: Denies chills or weight loss Eyes Eyes: Denies change in vision or diplopia ENT ENT ED: Denies ear pain, rhinorrhea or sore throat Cardiovascular Cardiovascular: Denies chest pain, orthopnea, palpitations or racing heartbeat Respiratory/Chest Respiratory/Chest: Denies cough, dyspnea or orthopnea Gastrointestinal Gastrointestinal: Reports abdominal pain and nausea; Denies constipation, diarrhea, melena or vomiting Genitourinary Genitourinary ED: Denies dysuria, hematuria or urinary frequency Musculoskeletal Musculoskeletal: Denies arthralgias or myalgias Integumentary Denies abscess or rash Neurologic Neurologic: Denies headache(s) or weakness Psychiatric Psychiatric: Denies anxiety, depression, suicidal ideation or suicidal thoughts Endocrine Endocrinology: Denies polydipsia, polyphagia or polyuria Allergic/Immunologic Allergic/Immunologic ED: Denies mouth swelling, tongue swelling or urticaria EXAM Physical Exam Const Vital Signs: 01/28/22 07:57 Temperature 97.8 F Temperature Source Temporal Pulse Rate 55 L Respiratory Rate 16 Blood Pressure 139/82 H Blood Pressure Mean 101 Pulse Ox 99 Oxygen Delivery Method Room Air Positive well nourished and well developed General Appearance ED: well developed HEENT Reports normocephalic, head/scalp atraumatic and moist mucous membranes Eyes PERRL and EOMs intact bilaterally Neck no lymphadenopathy, supple and no JVD Resp normal respiratory effort and clear to auscultation bilaterally Cardio regular rate, regular rhythm and no murmurs GI normal to inspection, nondistended, normoactive bowel sounds and non-tender Palpation: soft Back/Spine no CVA tenderness and normal ROM Extremity normal to inspection General Extremety ED: Negative for edema General Extremity: Negative for edema Neuro oriented x3 and CN's II-XII intact bilaterally Sensorium / Orientation: alert Motor Exam: strength 5/5 throughout Psych mental status grossly normal Mood & Affect: Negative for depressed or tearful Skin no rashes or lesions noted and no wounds MDM MDM MDM Narrative Medical decision making narrative: White count is 4.3 with a hemoglobin of 13.8. CMP and lipase are normal. CT of the abdomen pelvis with IV contrast was obtained and is also negative. Discussed with the patient her symptoms. We talked about follow-up and healthy eating habits. We talked about return symptoms and the possibility of needing a HIDA scan. She notes understanding of plan will return if worsening or concerns Lab Data Attestation: I reviewed the patient's lab results. Labs: Laboratory Results - last 24 hr 01/28/22 01/28/22 08:30 08:30 WBC 4.3 L RBC 4.72 Hgb 13.8 Hct 44.5 MCV 94.3 MCH 29.2 MCHC 31.0 L RDW Std Deviation 51.2 H RDW Coeff of Ami 14.6 Plt Count 196 MPV 10.7 Immature Gran % (Auto) 0.200 Neut % (Auto) 57.4 Lymph % (Auto) 28.6 [place] % (Auto) 10.8 H Eos % (Auto) 2.5 Baso % (Auto) 0.5 Absolute Neuts (auto) 2.5 Absolute Lymphs (auto) 1.24 Nucleated RBC % 0 Sodium 143 Potassium 3.9 Chloride 109 H Carbon Dioxide 26.0 Anion Gap 8 BUN 15 Creatinine 0.94 Estim Creat Clear Calc 53.69 Est GFR (MDRD) Af Amer 76 Est GFR (MDRD) Non-Af 63 BUN/Creatinine Ratio 15.9 Glucose 102 Calcium 9.4 Total Bilirubin 0.40 AST 29 ALT 37 Alkaline Phosphatase 80 Total Protein 7.6 Albumin 3.8 Globulin 3.8 Albumin/Globulin Ratio 1.0 Lipase 213 Radiography Diagnostic Testing: Clinical Impression(s) from Imaging Studies Abdomen/Pelvis CT 01/28/22 08:09 IMPRESSION: No focal acute inflammatory process. Electronically Signed: Ish Ramos MD at 9:32 EDT Reading Location ID and State: [facility] / [place] Tel , Service support , Discharge Plan Triage Chief Complaint: Abd Pain ED Provider: Hugo Interiano Dx/Rx/DC Orders Prescriptions: No Action levothyroxine 50 mcg tablet 50 mcg PO DAILY rosuvastatin 10 mg tablet 5 mg PO DAILY methylprednisolone [Medrol (Max)] 4 mg tablets,dose pack See Rx Instructions PO PER PKG DIR Qty: 21 0RF Rx Instructions: PO PER PKG DIR omeprazole 20 mg capsule,delayed release(DR/EC) 20 mg PO DAILY PRN (Reason: GERD) Label Comments: hydrocodone-acetaminophen [hydrocodone-acetaminophen] 1 TABLET tablet 1 tab PO Q4H PRN PRN (Reason: Pain) 2 Days Qty: 10 0RF prednisone 20 MG tablet 40 mg PO DAILY Qty: 12 0RF Primary Care Provider: Larry Holbrook Referrals: Larry Holbrook MD [Primary Care Provider] -
--- NOTE | 2022-01-28 08:09 | CT_ITS ---
STUDY: CT ABDOMEN AND PELVIS WITH CONTRAST REASON FOR EXAM: Female, 66 years old. Right lower quadrant pain RADIATION DOSAGE (If Supplied By Facility): CTDIvol = ( 19.84 ) mGy, DLP = ( 1164.10 ) mGycm TECHNIQUE: Transaxial images were obtained from the dome of the diaphragm to the symphysis pubis without oral contrast. IV 100mL Isovue-300 was administered. Sagittal and coronal images were reconstructed. Individualized dose optimization techniques were used for this CT. COMPARISON: 01/04/2018 FINDINGS: The visualized lung bases are unremarkable. The visualized portions of the heart are within normal limits. There is elongation of the right lobe of the liver consistent with a Christian''s lobe. Normal gallbladder and extrahepatic biliary system. There are multiple benign calcified granulomata of the spleen. Normal pancreas. Normal bilateral adrenal glands. Normal right kidney. Normal left kidney. Normal visualized stomach. Normal in caliber small bowel loops. Mild fecal retention. No evidence for acute diverticulitis. The appendix is suboptimally visualized but appears to be unremarkable. Normal abdominal aorta. Normal inferior vena cava. Normal retroperitoneum. Normal urinary bladder. Normal abdominal wall. Mild degenerative changes in the spine. Minimal anterolisthesis of L4 over L5. CT/Abdomen/Pelvis W IV Cont ONLY IMPRESSION: No focal acute inflammatory process. Electronically Signed: Ish Ramos MD at 9:32 EDT ,
[2022-01-28 08:48] LABS: Absolute Lymphocyte Count 1.24 X10^3/uL (0.83-4.51); Absolute Neutrophil Count 2.5 X10^3/uL (2.0-7.7); Basophil# 0.02 X10^3/uL; Basophil% 0.5 % (0-1); Eosinophil# 0.11 X10^3/uL; Eosinophils% 2.5 % (0-5); Hematocrit 44.5 % (37-47); Hemoglobin 13.8 g/dL (12.0-15.0); Lymphocyte # 1.24 X10^3/ul (0.83-4.51); Lymphocyte % 28.6 % (19-41); Mean Corpuscular Hgb 29.2 pg (27.0-32.0); Mean Corpuscular Volume 94.3 fL (81-99); Mean Platelet Vol. 10.7 fl (6.2-12.0); Monocyte# 0.47 X10^3/uL; Monocyte% 10.8 % (0-10); NRBC Flagged by Analyzer 0 % (0-5); Neutrophil # 2.49 X10^3/uL (2.7-7.7); Neutrophil % 57.4 % (47-70); Platelet Count 196 K/mm3 (150-450); RBC Distribution Width CV 14.6 % (11.6-14.6); RBC Distribution Width SD 51.2 fl (35.1-43.9); Red Blood Count 4.72 M/mm3 (4.2-5.4); White Blood Count 4.3 K/mm3 (4.4-11.0)
[2022-01-28 09:02] LABS: AST(SGOT) 29 U/L (15-37); Alanine Aminotransfer ALT/SGPT 37 U/L (13-56); Albumin, Serum 3.8 g/dL (3.2-5.0); Alkaline Phosphatase 80 U/L (45-117); Anion Gap 8 (5-15); BUN 15 mg/dL (7-18); BUN/Creat Ratio 15.9 RATIO (10-20); Calcium,Total 9.4 mg/dL (8.5-10.1); Chloride 109 mmol/L (98-107); Creatinine, Serum 0.94 mg/dL (0.55-1.02); EST Glomerular Filtration Rate 63 mL/min (>60); Est Glom Filt Rate - Afr Amer 76 mL/min (>60); Estimated Creatinine Clearance 53.69 ml/min; Globulin 3.8 g/dL (2.2-4.2); Glucose 102 mg/dL (74-106); Lipase 213 U/L (73-393); Potassium 3.9 mmol/L (3.5-5.1); Protein, Total 7.6 g/dL (6.4-8.2); Sodium Level 143 mmol/L (136-145)
[2022-01-28 09:57] VITALS: BP 107/81; PULSE 56; RESP 16; O2SAT 98
== END 2022-01-28 09:57 | disposition home or self-care (01) ==
PROVIDERS: Emergency Provider Emergency Medicine; PCP Family Medicine; Visit Provider Emergency Medicine
DX: R10.9 Unspecified abdominal pain (principal); R11.0 Nausea; E03.9 Hypothyroidism, unspecified
CPT/HCPCS: 74177; 80053; 83690; 85025; 99282; Q9967; A4216

== ENCOUNTER 2023-05-30 12:12 | Emergency (ER) | payer MEDICARE, BC, SELFPAY ==
[2023-05-30 12:12] VITALS: BP 154/83; PULSE 68; RESP 18; TEMP 36.6; O2SAT 99; BMI 34.4
[2023-05-30 12:33] LABS: Bacteria 0 SEEN /hpf (None Seen); Mucous, Urine 0 SEEN /hpf (<or=2+); White Blood Cells 0 SEEN /hpf (0-5)
[2023-05-30 12:35] LABS: Color, Urine Yellow (Yellow); Glucose, Dipstick Normal (Normal); Ketone-Dipstick Negative (Negative); Leukocyte Esterase-Dipstick Negative /ul (Negative); Nitrite-Dipstick Negative (Negative); Occult Blood-Urine 10 /ul (Negative); Protein-Dipstick Negative (Negative); Urine Bilirubin Dipstick Negative (Negative); Urine Clarity Sl. Cloudy (Clear); Urine Urobilinogen Normal (Normal)
[2023-05-30 12:41] LABS: Red Blood Cells-Urine 0-5 SEEN /hpf (0-5); Squamous Epithelial Cells - UA 0-5 SEEN /hpf (5-10)
--- NOTE | 2023-05-30 15:44 | CT_ITS ---
We are attempting to reach an attending provider to discuss findings. An addendum with communication details will be sent when the communication is complete. STUDY: CT BRAIN WITHOUT CONTRAST REASON FOR EXAM: Female, 67 years old. confusion RADIATION DOSAGE (If Supplied By Facility): CTDIvol = ( 44.99 ) mGy, DLP = ( 849.54 ) mGycm TECHNIQUE: Transaxial CT imaging of the brain was performed without administration of intravenous contrast material. Individualized dose optimization techniques were used for this CT. COMPARISON: No relevant priors. FINDINGS: Normal soft tissue structures. Normal calvarium. There is an irregularly-shaped high attenuation mass density involving the dave matter and dave-white junction of the right frontal lobe, extending to the surface of the brain and measuring approximately 3.2 x 3.1 x 2.4 cm. A band of surrounding low-attenuation is seen consistent with mild edema. No significant associated mass effect. Findings most consistent with a parenchymal hematoma that may be subacute. Less likely would be a high density mass. MRI with contrast is suggested. Normal size ventricles and extra-axial spaces for the patient''s age. Normal white matter tracts of the cerebral hemispheres. Normal basal ganglia and thalami. Normal brainstem. Normal cerebellum. There are no findings of an acute ischemic infarction. Normal visualized paranasal sinuses. CT/Brain/Head without Contrast IMPRESSION: 3.2 cm focal hypodensity mass appearing lesion in the right frontal lobe most consistent with a subacute parenchymal hemorrhage. Hyperdense mass is not entirely excluded. Electronically Signed: Lenin Ventura MD at 16:44 EST ,
--- NOTE | 2023-05-30 15:47 | EX.ED.DYSGE1 ---
HPI History of Present Illness Chief Complaint: Complaint Detail of Chief Complaint: Confusion for 2 to 3 weeks. Informant: patient and spouse/S.O. Onset/Context/Timing Current Severity: Mild Maximum Severity: Mild Narrative Narrative: 67-year-old female history of borderline diabetes who has had confusion per the last 3 weeks. I asked him to give me specific examples and he said she will read the clock incorrectly. She will leave car doors open which she never did before. She will be sitting at a traffic light and green and does not process that she should go unless he tells her to. He is concerned she possibly may have had a stroke. She said she is under increased stress for young children at home but they are raising and have been for the last 3 years or so. She denies any recent illness. No recent head injury. No headaches. No vomiting or diarrhea or fever. Prior similar symptoms: No Recent Illness/Hospitalization: No PFSH PFSH Medical History Back pain Bilirubinuria Confusion GERD (gastroesophageal reflux disease) Hyperlipidemia Hypothyroid Osteoarthritis Spinal stenosis Urinary frequency Home Medications levothyroxine 50 mcg tablet 50 mcg PO DAILY 05/04/20 [History Last Taken 05/12/20] omeprazole 20 mg capsule,delayed release 20 mg PO DAILY PRN GERD 05/04/20 [History Last Taken 05/12/20] rosuvastatin 10 mg tablet 5 mg PO DAILY 05/04/20 [History Last Taken Unknown] Allergy/AdvReac Type Severity Reaction Status Date / Time Penicillins Allergy Mild Rash Verified 05/30/23 12:12 Family History Father Diabetes Mother Parkinson disease Surgical History H/O laparoscopy History of radiofrequency ablation (RFA) of nerve of lumbar spine Social History household members: spouse housing: house Smoking Status: Never smoker alcohol intake: never what type of physical activity do you participate in: none do you feel safe at home: Yes ROS ROS ED ROS Narrative Denies recent illness. Review of Systems ROS Unobtainable: Denies due to encephalopathy Constitutional Constitutional ED: Denies anorexia Eyes Eyes: Denies blind spots ENT ENT ED: Denies change in voice Cardiovascular Cardiovascular: Denies abdominal pain Respiratory/Chest Respiratory/Chest: Denies dry cough Gastrointestinal Gastrointestinal: Denies bloating Genitourinary Genitourinary ED: Denies decreased urination Musculoskeletal Musculoskeletal: Denies back pain Integumentary Denies alopecia Neurologic Neurologic: Denies abnormal movements Psychiatric Psychiatric: Denies hallucinations Endocrine Endocrinology: Denies change in body appearance Hematologic/Lymphatic Hematologic/Lymphatic: Reports none Allergic/Immunologic Allergic/Immunologic ED: Reports none EXAM Physical Exam Narrative Exam Narrative: Well-appearing 67-year-old female. Vital signs stable afebrile. at bedside. Pulse ox 99% on room air no hypoxia. No distress. H EENT exam unremarkable. Pupils round reactive light. No facial droop. Normal speech. Moist mucous membranes. No signs of trauma. Neck nontender no meningismus. Lungs clear to auscultation bilaterally. Heart regular rhythm no murmur. Abdomen soft nontender. Moving all 4 extremities. Calves are nontender without edema. Neurologically she is awake alert. Answer questions following commands. She knows where she is at. She knows the month. The year. [facility]. No focal motor deficits. NIH is 0. Const Vital Signs: 05/30/23 12:12 05/30/23 15:54 05/30/23 17:40 Temperature 97.9 F 98.5 F Temperature Source Temporal Pulse Rate 68 67 75 Respiratory Rate 18 16 16 Blood Pressure 154/83 H 137/69 H 137/68 H Blood Pressure Mean 106 91 91 Pulse Ox 99 98 98 Oxygen Delivery Method Room Air Room Air Positive well nourished, well developed, alert, oriented x3, no apparent distress, average body habitus, no limitations and healthy appearing; Negative for cachectic, contractures or unkempt General Appearance ED: active and well developed; Negative for unkempt, cachectic or contractures Orientation / Consciousness: awake, oriented to person, oriented to place and oriented to time; Negative for comatose, confused or disoriented Exam Limitations: no limitations Nutritional Appearance: Negative for cachectic HEENT Reports normocephalic, head/scalp atraumatic and hearing grossly normal bilaterally normocephalic, normal to inspection and atraumatic; Negative for trauma Face and Sinus: normal facial exam Nose: external nose normal Mouth ED: Yes oral and palatal mucosa normal Mouth: oral and palatal mucosa normal Eyes PERRL, EOMs intact bilaterally, conjunctivae normal and no scleral icterus General Eye ED: Yes normal appearance of both eyes and normal light reflex; Negative for enophthalmos, exophthalmos, proptosis or pale conjunctiva Alignment: alignment normal Periorbital: periorbital findings normal Eyelid: eyelids normal Conjunctiva: conjunctiva normal Sclera: sclera normal Pupil: PERRL Neck full ROM, No nuchal rigidity, no lymphadenopathy, supple, no meningeal signs and no JVD Lymph Lymphatic: no lymphadenopathy noted and no lymphedema noted; Negative for lymphedema or lymphadenopathy Chest Wall inspection of chest normal and palpation of chest normal Resp normal respiratory effort, normal air movement, no retractions, no use of accessory muscles, clear to auscultation bilaterally and No percussion normal Effort and Inspection: able to speak in complete sentences Auscultation: clear to auscultation bilaterally Cardio regular rate, regular rhythm, S1 normal heart sound, S2 normal heart sound, no murmurs, no rub, no gallops, no clicks and no JVD; Negative for peripheral pulses 2+ throughout or diaphoretic Rate: regular rate Rhythm: regular rhythm GI normal to inspection, nondistended, normoactive bowel sounds, soft to palpation, non-tender, non-distended, no masses and no bruits Auscultation: normoactive bowel sounds Palpation: soft; Negative for firm, tender or guarding Back/Spine no CVA tenderness, normal ROM and normal to inspection Extremity normal to inspection and full ROM General Extremety ED: Yes normal exam except as noted General Extremity: normal exam except as noted Neuro oriented x3, CN's II-XII intact bilaterally, moves all extremities, no focal motor deficits and no sensory deficits noted Sensorium / Orientation: awake, alert, oriented to person, oriented to place and oriented to time; Negative for orientation impaired or confused Meningeal Signs: no meningeal signs Coordination / Balance: [id number] test normal Speech: speech normal Motor Exam: strength 5/5 throughout Coordination: [id number] test normal Psych mental status grossly normal, thought process normal, cooperative, affect normal and speech normal Appearance: grossly normal; Negative for unkempt Attitude: calm, No engaged and No paranoid Activity / Motor Behavior: appropriate eye contact Speech: normal speech Mood & Affect: euthymic mood Thought Process: normal thought process Thought Content: normal thought content Attention / Concentration: attention grossly intact Memory / Cognition: memory grossly intact Insight: insight good Judgement: judgement good Skin no rashes or lesions noted, no wounds, skin turgor normal, no jaundice, no petechiae and no mottling Lesions: no lesions Rashes: no rashes Trauma: no lacerations or abrasions Hair: normal Nails: normal MDM MDM MDM Narrative Medical decision making narrative: 67-year-old female with borderline diabetes with mental status change last 3 weeks. Exam benign. UA is negative. Awaiting screening labs and CAT scan. Multiple repeat exams and most recent was at 5:17 PM. Patient is doing well. She had no change. I explained the patient and her this carries thoughts or arranging transfer to [facility]. I have already spoken to them and awaiting transfer. Helicopter is not flying due to weather. Physician's ambulances will take the patient to [place]. History & Record Review Discussion w/independent historian: Patient Additional record(s) reviewed:: Prior inpatient record Lab Data Attestation: I reviewed the patient's lab results. Lab results narrative: UA normal. CBC normal. White count of 5. H&H 13 and 41. Platelets 250. Electrolytes show a sodium 138. 1. Normal BUN 13 creatinine 0.9. Liver test normal. PT, INR and PTT are pending. Labs: Laboratory Results - last 24 hr 05/30/23 05/30/23 12:30 16:10 WBC 5.6 RBC 4.57 Hgb 13.4 Hct 41.0 MCV 89.7 MCH 29.3 MCHC 32.7 RDW Std Deviation 47.1 H RDW Coeff of Ami 14.2 Plt Count 250 MPV 10.5 Immature Gran % (Auto) 0.400 Neut % (Auto) 67.0 Lymph % (Auto) 22.0 [place] % (Auto) 8.9 Eos % (Auto) 1.2 Baso % (Auto) 0.5 Absolute Neuts (auto) 3.8 Absolute Lymphs (auto) 1.24 Nucleated RBC % 0 Sodium 138 Potassium 3.6 Chloride 108 H Carbon Dioxide 29.0 Anion Gap 1 L BUN 13 Creatinine 0.89 Estim Creat Clear Calc 72.93 Est GFR (MDRD) Af Amer 82 Est GFR (MDRD) Non-Af 67 BUN/Creatinine Ratio 14.6 Glucose 102 Calcium 9.9 Total Bilirubin 0.40 AST 19 ALT 29 Alkaline Phosphatase 86 Total Protein 8.1 Albumin 4.1 Globulin 4.0 Albumin/Globulin Ratio 1.0 Urine Color Yellow Urine Clarity Sl. Cloudy Urine pH 6.0 Ur Specific [place] 1.010 Urine Protein Negative Urine Glucose (UA) Normal Urine Ketones Negative Urine Occult Blood 10 H Urine Nitrite Negative Urine Bilirubin Negative Urine Urobilinogen Normal Ur Leukocyte Esterase Negative Urine RBC 0-5 SEEN Urine WBC 0 SEEN Ur Squamous Epith Cells 0-5 SEEN Urine Bacteria 0 SEEN Urine Mucus 0 SEEN Radiography Chest X-Ray - ED: 1 View, Read by ED Physician, Read by Radiologist, Normal, Heart, Lungs, Mediastinum, Bony Structures, No Acute Disease and Chronic Changes Diagnostic Testing: Clinical Impression(s) from Imaging Studies Brain CT 05/30/23 15:44 IMPRESSION: 3.2 cm focal hypodensity mass appearing lesion in the right frontal lobe most consistent with a subacute parenchymal hemorrhage. Hyperdense mass is not entirely excluded. Electronically Signed: Lenin Ventura MD at 16:44 EST , ADDENDUM: 05/30/23 1701 IMPRESSION: 3.2 cm focal hypodensity mass appearing lesion in the right frontal lobe most consistent with a subacute parenchymal hemorrhage. Hyperdense mass is not entirely excluded. N.B. : The above Results were Read Back by Lenin Ventura MD to Oliver Briggs MD, and understanding confirmed on 05/30/2023 16:54:10 (ET). Electronically Signed: Lenin Ventura MD at 16:44 EST , Chest X-Ray 05/30/23 16:29 IMPRESSION: No definite acute or significant abnormality seen. Electronically Signed: Lenin Ventura MD at 16:45 EST , Chest x-ray, portable, single view interpreted both by myself and the radiologist shows no acute abnormality. Normal cardiac silhouette mediastinum. Normal lung omalley. CAT scan of the brain showed a surrounding edema. suspected intracranial bleed with edema. Cannot rule out a mass. Rhythm Strip Rhythm Strip: Sinus Rhythm Rate: 60 Ectopy: None EKG Initial EKG: Attestation: I personally reviewed and interpreted this EKG as follows: Interpretation: Sinus Rhythm and No Acute Injury Pattern Comments: Normal sinus rhythm signs of LA or ischemia.Rate is 60 no acute Critical Care Time Critical Care Time: Yes Critical care time (excluding procedures): 30-74 minutes, Including time spent:, Discussing w/Patient &/or Family/Sanforizing Machine Operator, Discussing w/Consultants, Arranging Admission or Transfer, Performing Direct Patient Care at Bedside and - (33 min) Discharge Plan Triage Chief Complaint: Complaint Other Complaint: Confusion ED Provider: Oliver Briggs Dx/Rx/DC Orders Clinical Impression: Confusion, Intracranial bleed Prescriptions: No Action levothyroxine 50 mcg tablet 50 mcg PO DAILY rosuvastatin 10 mg tablet 5 mg PO DAILY omeprazole 20 mg capsule,delayed release(DR/EC) 20 mg PO DAILY PRN (Reason: GERD) Patient Comments: Primary Care Provider: Larry Holbrook Referrals: Larry Holbrook MD [Primary Care Provider] - Disposition Disposition: Acute Care Hospital
[2023-05-30 15:54] VITALS: BP 137/69; PULSE 67; RESP 16; O2SAT 98
--- NOTE | 2023-05-30 16:29 | RAD_ITS ---
STUDY: X-RAY CHEST REASON FOR EXAM: Female, 67 years old. ALOC TECHNIQUE: Single AP portable view of the chest. COMPARISON: 09/22/2015. FINDINGS: The lungs are clear and expanded. There is no demonstrated pleural abnormality. Normal size heart. Normal mediastinum and gilmar. Normal visualized pulmonary arteries. Normal visualized aortic arch and descending thoracic aorta. There are diffuse degenerative changes of the visualized thoracic spine. Normal visualized ribs, clavicles, and shoulders. There is no demonstrated abnormality of the visualized soft tissue structures of the upper abdomen. RAD/Chest 1 View (Portable) IMPRESSION: No definite acute or significant abnormality seen. Electronically Signed: Lenin Ventura MD at 16:45 EST ,
[2023-05-30 16:48] LABS: Absolute Lymphocyte Count 1.24 X10^3/uL (0.83-4.51); Absolute Neutrophil Count 3.8 X10^3/uL (2.0-7.7); Basophil# 0.03 X10^3/uL; Basophil% 0.5 % (0-1); Eosinophil# 0.07 X10^3/uL; Eosinophils% 1.2 % (0-5); Hemoglobin 13.4 g/dL (12.0-15.0); Lymphocyte # 1.24 X10^3/ul (0.83-4.51); Mean Corp Hgb Conc 32.7 g/dL (32-36); Mean Corpuscular Hgb 29.3 pg (27.0-32.0); Mean Corpuscular Volume 89.7 fL (81-99); Mean Platelet Vol. 10.5 fl (6.2-12.0); Monocyte% 8.9 % (0-10); NRBC Flagged by Analyzer 0 % (0-5); Neutrophil # 3.78 X10^3/uL (2.7-7.7); Platelet Count 250 K/mm3 (150-450); RBC Distribution Width CV 14.2 % (11.6-14.6); RBC Distribution Width SD 47.1 fl (35.1-43.9); Red Blood Count 4.57 M/mm3 (4.2-5.4); White Blood Count 5.6 K/mm3 (4.4-11.0)
--- OUTSIDE RECORDS SUMMARY | 2023-05-30 16:59 | XMS RPT_ITS | CCD ---
Author Name Unknown Address [address] [place] [address] Organization [facility] Care Team Providers Care Commercial Litigation Paralegal Name Role Phone EDGAR HOLBROOK Attending Unavailable EDGAR HOLBROOK Referring Unavailable EDGAR HOLBROOK Primary Care Unavailable Edgar Holbrook Primary Care Provider Edgar Holbrook Primary Care Provider Edgar Holbrook Primary Care Provider Edgar Holbrook Unavailable Edgar Holbrook Primary Care Provider EDGAR HOLBROOK Admitting Unavailable EDGAR HOLBROOK Primary Care Unavailable EDGAR HOLBROOK Consulting Unavailable EDGAR HOLBROOK Attending Unavailable EDGAR HOLBROOK Referring Unavailable PROVIDER, UNKNOWN Consulting Unavailable PROVIDER, UNKNOWN Consulting Unavailable Edgar Holbrook MD Primary Care Provider Edgar Holbrook Primary Care Provider Darrell, Dr. Chay Srivastava Attending Unavaila ble Sheron, Dr. Edgar Kern Primary Care Unavaila ble Clarice, Ms. Kait Bell Attending Unavaila ble Sheron, Dr. Edgar Kern Primary Care Unavaila ble Darrell, Dr. Chay Srivastava Attending Unavaila ble Sheron, Dr. Edgar Kern Primary Care Unavaila ble Darrell, Dr. Chay Srivastava Attending Unavaila ble Sheron, Dr. Edgar Kern Primary Care Unavaila ble Sheron, Dr. Edgar Kern Primary Care Unavaila ble Darrell, Dr. Chay Srivastava Attending Unavaila ble Teach, Ms. Kait Bell Attending Unavaila ble Tom[place], Dr. Edgar Kern [facility] Unavaila ble Teach, MsMarivel Bell Attending Unavaila ble [place], Dr. Edgar Kern [facility] Unavaila ble Teach, MsMarivel Carballo Arabella Attending Unavaila ble [place], Dr. Edgar Kern [facility] Unavaila ble Ramírez, Dr. Chay Srivastava Attending Unavaila ble [place], Dr. Edgar Kern [facility] Unavaila ble Ramírez, Dr. Chay Srivastava Attending Unavaila ble [place], Dr. Edgar Kern [facility] Unavaila ble Ramírez, Dr. Chay Srivastava Attending Unavaila ble [place], Dr. Edgar Kern [facility] Unavaila ble Ramírez, Dr. Chay Srivastava Attending Unavaila ble [place], Dr. Edgar Kern [facility] Unavaila ble Ramírez, Dr. Chay Srivastava Attending Unavaila ble [place], Dr. Edgar Kern [facility] Unavaila ble Ramírez, Dr. Chay Srivastava Attending Unavaila ble [place], Dr. Edgar Kern [facility] Unavaila ble [place], Dr. Edgar Kern [facility] Unavaila ble Teach, Ms. Kait Bell Attending Unavaila ble [place], Dr. Edgar Kern [facility] Unavaila ble Ramírez, Dr. Chay Srivastava Attending Unavaila ble [place], Dr. Edgar Kern [facility] Unavaila ble Ramírez, Dr. Chay Srivastava Attending Unavaila ble [place], Dr. Edgar Kern [facility] Unavaila ble Teach, Ms. Kait Bell Attending Unavaila ble [place], Dr. Edgar Kern [facility] Unavaila ble Teach, Ms. Kait Bell Attending Unavaila ble [place], Dr. Edgar Kern [facility] Unavaila ble Teach, Ms. Kait Bell Attending Unavaila ble [place], Dr. Edgar Kern [facility] Unavaila ble Teach, Ms. Kait Bell Attending Unavaila ble Teach, Ms. Kait Bell Attending Unavaila ble [place], Dr. Edgar Kern [facility] Unavaila ble Darrell, Dr. Chay Srivastava Attending Unavaila ble [place], Dr. Edgar Kern [facility] Unavaila ble Sheron, Dr. Edgar Kern [facility] Unavaila ble Darrell, Dr. Chay Srivastava Attending Unavaila ble Ramírez, Dr. Chay Srivastava Attending Unavaila ble [place], Dr. Edgar Kern [facility] Unavaila ble [place], Dr. Edgar Kern Primary Care Placido Oneil, Ms. Kait Bell Attending Placido Holbrook, Dr. Edgar Kern Primary Care Placido Oneil, Ms. Kait Bell Attending Placido Dao Primary Care Provider MARTHA Hadley Attending MARTHA Hadley Attending Tika dutton Allergies Allergy Classification Reported Allergen(s) Allergy Type Date of Onset Reaction(s) Facility (13 sources) Penicillins; Translations: [Unknown] Propensity to adverse reactions to drug (disorder) [address] [place] [address] Medications Current Medications Medication Drug Class(es) Dates Sig (Normalized) Sig (Original) clobetasol propionate 0.0005 mg/mg topical ointment (4 sources) Corticosteroid Start: 08-29-2018 End: 01-26-2022 clobetasol (TEMOVATE) 0.05 % ointment Indications: Lichen sclerosus Apply to affected area BID x 6 weeks then use once weekly for maintenance 30 g 1 08/29/2018 01/26/2022 Discontinued (Course of therapy completed) Completed/Discontinued Medications Medication Drug Class(es) Dates Sig (Normalized) Sig (Original) ergocalciferol, vitamin D2, (VITAMIN D2 ORAL) (1 source) ergocalciferol, vitamin D2, (VITAMIN D2 ORAL) Take by mouth. 0 Active Problems Active Problems Problem Classification Problem Date Documented Date Episodic/Chronic Abdominal pain (1 source) Upper abdominal pain; Translations: [Upper abdominal pain, unspecified] Episodic Blindness and vision defects (20 sources) Hypermetropia; Translations: [Hypermetropia, unspecified eye] Onset: 09-14-2014 09-14-2014 Episodic Cardiac dysrhythmias (1 source) Palpitations; Translations: [Palpitation] Episodic Cataract (8 sources) Bilateral senile combined form cataracts of eyes; Translations: [Combined forms of age-related cataract, bilateral] Onset: 09-14-2014 08-17-2016 Chronic Genitourinary symptoms and ill-defined conditions (8 sources) Urge incontinence of urine; Translations: [Urge incontinence] Onset: 11-04-2012 11-04-2012 Chronic Inflammation; infection of eye (except that caused by tuberculosis or sexually transmitteddisease) (1 source) Hordeolum externum of upper eyelid of right eye; Translations: [Hordeolum externum right upper eyelid] Episodic Menopausal disorders (2 sources) Postmenopausal bleeding; Translations: [Postmenopausal bleeding] Chronic Nausea and vomiting (1 source) Nausea; Translations: [Nausea] Episodic Other acquired deformities (20 sources) Lumbar spondylolisthesis; Translations: [Spondylolisthesis] Episodic Other acquired deformities (1 source) Spondylolisthesis, lumbar region; Translations: [Spondylolisthesis, lumbar region] Onset: 09-18-2022 Episodic Other and unspecified benign neoplasm (1 source) Benign neoplasm of skin of right upper eyelid; Translations: [Other benign neoplasm of skin of right upper eyelid, including canthus] Episodic Other eye disorders (8 sources) Bilateral vitreous floaters; Translations: [Other vitreous opacities, bilateral] Onset: 09-14-2014 08-17-2016 Chronic Other eye disorders (2 sources) Chalazion of right upper eyelid; Translations: [Chalazion right upper eyelid] Episodic Other female genital disorders (1 source) Abnormal uterine bleeding; Translations: [Abnormal uterine and vaginal bleeding, unspecified] Chronic Other nervous system disorders (10 sources) Abnormal gait; Translations: [Abnormality of gait] Episodic Other nervous system disorders (1 source) Unspecified abnormalities of gait and mobility; Translations: [Unspecified abnormalities of gait and mobility] Onset: 09-18-2022 Episodic Other screening for suspected conditions (not mental disorders or infectious disease) (1 source) Patient encounter status; Translations: [Encounter for screening for malignant neoplasm of cervix] Episodic Other skin disorders (8 sources) Lichen sclerosus et atrophicus; Translations: [Circumscribed scleroderma] Onset: 11-04-2012 11-04-2012 Chronic Spondylosis; intervertebral disc disorders; other back problems (20 sources) Lumbar spondylosis; Translations: [Lumbosacral spondylosis without myelopathy] Onset: 03-27-2022 Chronic Spondylosis; intervertebral disc disorders; other back problems (20 sources) Spinal stenosis of lumbar region; Translations: [Spinal stenosis, lumbar region, without neurogenic claudication] Onset: 03-27-2022 Episodic Unclassified (1 source) Low back pain, unspecified; Translations: [Low back pain, unspecified] Onset: 09-18-2022 Past or Other Problems Problem Classification Problem Date Documented Da te Episodic/Chronic Other connective tissue disease (8 sources) Muscle weakness; Translations: [Muscle weakness (generalized)] Onset: 02-19-2019 02-19-2019 Episodic Other injuries and conditions due to external causes (8 sources) Foreign body in conjunctival sac; Translations: [Foreign body in conjunctival sac, unspecified eye, initial encounter] Onset: 08-24-2014 08-24-2014 Episodic Results Test Name Value Interpretation Reference Range Facil ity Vital Signs Date Time Vital Sign Value Performing Clinician Facility 06-15-2022 23:30-0500 Body temperature 97.81 [degF] Obed Hull MD Work Phone: [facility] 06-15-2022 23:30-0500 Diastolic blood pressure 70 mm[Hg] Obed Hull MD Work Phone: [facility] 06-15-2022 23:30-0500 Heart rate 80 /min Obed Hull MD Work Phone: [facility] 06-15-2022 23:30-0500 Respiratory rate 18 /min Obed Hull MD Work Phone: [facility] 06-15-2022 23:30-0500 SaO2% (BldA) [Mass fraction] 99 % Obed Hull MD Work Phone: [facility] 06-15-2022 23:30-0500 Systolic blood pressure 134 mm[Hg] Obed Hull MD Work Phone: [facility] 06-15-2022 20:22-0500 Body height 165.1 cm Obed Hull MD Work Phone: [facility] 12-13-2021 09:49-0400 Body weight 95.25 kg Piper Rahman VALIDATION SCIENTIST.CNM Work Phone: [facility] 12-13-2021 09:49-0400 Diastolic blood pressure 72 mm[Hg] Piper Rahman VALIDATION SCIENTIST.CNM Work Phone: [facility] 12-13-2021 09:49-0400 Systolic blood pressure 118 mm[Hg] Piper Rahman VALIDATION SCIENTIST.CNM Work Phone: [facility] Encounters Encounter Date Encounter Type Care Provider Facility Start: 05-14-2023 End: 05-14-2023 ambulatory MARTHA T LEO Facility:[facility] Start: 04-09-2023 End: 04-09-2023 ambulatory MARTHA BAILEY Facility:[facility] Start: 04-09-2023 End: 04-09-2023 Patient encounter procedure Martha Connie Leo OD Work Phone: Optometry Procedures Date Procedure Procedure Detail Performing Clinician Start: 06-15-2022 Ct abdomen & pelvis w/contrast material Obed Hull MD Work Phone: Start: 06-15-2022 Complete blood count with white cell differential, automated Obed Hull MD Work Phone: Start: 06-15-2022 Comprehensive metabo lic panel Obed Hull MD Work Phone: Start: 06-15-2022 End: 06-15-2022 Urinalysis microscopic only Obed Hull MD Work Phone: Start: 06-15-2022 Urinalysis, reagent strip without microscopy Obed Hull MD Work Phone: Start: 11-03-2019 Mammography Piper guy VALIDATION SCIENTIST.CNM Work Phone: Start: 10-08-2017 Colonoscopy Piper guy VALIDATION SCIENTIST.CNM Work Phone: Start: 09-28-2012 Lipid 1996 panel - S lenny or Plasma Marthamarissa Bailey OD Work Phone: Plan of Treatment Date Care Activity Detail Author Start: 04-23-2028 Tetanus vaccination [facility] Start: 04-23-2028 Urine microalbumin profile DTaP,Tdap,Td Vaccine (2 - Td or Tdap) [facility] Start: 01-05-2023 Covid-19 Vaccine ( season) Covid-19 Vaccine () [facility] Start: 01-05-2023 Influenza vaccination Influenza Vaccine (#1) [facility] Start: 10-20-2022 PTRECHECKA, Provider: Aleida Metzger, Status: Pen, Time: 8:00 AM PTRECHECKA, Provider: Aleida Metzger, Status: Pen, Time: 8:00 AM [facility] Work Phone: Start: 10-11-2022 PTFUADULT4, Provider: Jane Aaron, Status: Pen, Time: 8:30 AM PTFUADULT4, Provider: Jane Aaron, Status: Pen, Time: 8:30 AM [facility] Work Phone: Start: 09-22-2022 PTRECHECKA, Provider: Aleida Metzger, Status: Pen, Time: 8:15 AM PTRECHECKA, Provider: Aleida Metzger, Status: Pen, Time: 8:15 [facility] Work Phone: Start: 09-18-2022 PTFUADULT4, Provider: Miracle Schmitz, Status: Pen, Time: 1:15 PM PTFUADULT4, Provider: Miracle Schmitz, Status: Pen, Time: 1:15 PM [facility] Work Phone: Start: 09-15-2022 PTFUADULT4, Provider: Miracle Schmitz, Status: Pen, Time: 1:15 PM PTFUADULT4, Provider: Miracle Schmitz, Status: Pen, Time: 1:15 PM [facility] Work Phone: Start: 09-11-2022 PTFUADULT4, Provider: Nuha Garcia, Status: Pen, Time: 1:15 PM PTFUADULT4, Provider: Nuha Garcia, Status: Pen, Time: 1:15 PM [facility] Work Phone: Start: 09-08-2022 PTFUADULT4, Provider: Miracle Schmitz, Status: Pen, Time: 1:15 PM PTFUADULT4, Provider: Miracle Schmitz, Status: Pen, Time: 1:15 PM [facility] Work Phone: Start: 09-04-2022 PTFUADULT4, Provider: Miracle Schmitz, Status: Pen, Time: 1:15 PM PTFUADULT4, Provider: Miracle Schmitz, Status: Pen, Time: 1:15 PM [facility] Work Phone: Start: 09-01-2022 PTFUADULT4, Provider: Miracle Scmhitz, Status: Pen, Time: 3:30 PM PTFUADULT4, Provider: Miracle Schmitz, Status: Pen, Time: 3:30 PM [facility] Work Phone: Start: 09-01-2022 PTFUADULT4, Provider: Miracle Schmitz, Status: Pen, Time: 10:45 AM PTFUADULT4, Provider: Miracle Schmitz, Status: Pen, Time: 10:45 AM [facility] Work Phone: Start: 08-28-2022 PTFUADULT4, Provider: Miracle Schmitz, Status: Pen, Time: 2:00 PM PTFUADULT4, Provider: Miracle Schmitz, Status: Pen, Time: 2:00 PM [facility] Work Phone: Start: 05-07-2022 ADVANCE DIRECTIVE DISCUSSION ADVANCE DIRECTIVE DISCUSSION [facility] Start: 05-07-2022 DEPRESSION ASSESSMENT DEPRESSION ASSESSMENT [facility] Start: 04-05-2022 PTFUADULT4, Provider: Miracle Schmitz, Status: Pen, Time: 9:15 AM PTFUADULT4, Provider: Miracle Schmitz, Status: Pen, Time: 9:15 AM [facility] Work Phone: Start: 04-03-2022 PTFUADULT4, Provider: Miracle Schmitz, Status: Pen, Time: 9:15 AM PTFUADULT4, Provider: Miracle Schmitz, Status: Pen, Time: 9:15 AM [facility] [place] Work Phone: Start: 03-27-2022 PTFUADULT4, Provider: Miracle Schmitz, Status: Pen, Time: 9:15 AM PTFUADULT4, Provider: Miracle Schmitz, Status: Pen, Time: 9:15 AM [facility] [place] Work [facility]: Start: 03-24-2022 PTFUADULT4, Provider: Miracle Schimtz, Status: Pen, Time: 9:15 AM PTFUADULT4, Provider: Miracle Schmitz, Status: Pen, Time: 9:15 AM [facility] [place] Work Phone: Start: 03-20-2022 PTRECHECKA, Provider: Aleida Metzger, Status: Pen, Time: 10:45 AM PTRECHECKA, Provider: Aleida Metzger, Status: Pen, Time: 10:45 AM [facility] [place] Work Phone: Start: 03-17-2022 PTFUADULT4, Provider: Miracle Schmitz, Status: Pen, Time: 9:15 AM PTFUADULT4, Provider: Miracel Schmitz, Status: Pen, Time: 9:15 AM [facility] [place] Work Phone: Start: 03-13-2022 PTFUADULT4, Provider: Miracle Schmitz, Status: Pen, Time: 10:45 AM PTFUADULT4, Provider: Miracle Schmitz, Status: Pen, Time: 10:45 AM [facility] [place] Work Phone: Start: 03-10-2022 PTFUADULT4, Provider: Mircale Schmitz, Status: Pen, Time: 8:30 AM PTFUADULT4, Provider: Miracle Schmitz, Status: Pen, Time: 8:30 AM [facility] Start: 03-06-2022 PTFUADULT4, Provider: Miracle Schmitz, Status: Pen, Time: 10:45 AM PTFUADULT4, Provider: Miracle Schmitz, Status: Pen, Time: 10:45 AM [facility] Work [facility]: Start: 03-03-2022 PTFUADULT4, Provider: Miracle Schmitz, Status: Pen, Time: 10:45 AM PTFUADULT4, Provider: Miracle Schmitz, Status: Pen, Time: 10:45 AM [facility] Work Phone: Start: 02-27-2022 PTFUADULT4, Provider: Miracle Schmitz, Status: Pen, Time: 10:00 AM PTFUADULT4, Provider: Miracle Schmitz, Status: Pen, Time: 10:00 AM [facility] Work Phone: Start: 02-24-2022 PTFUADULT4, Provider: Miracle Schmitz, Status: Pen, Time: 8:30 AM PTFUADULT4, Provider: Miracle Schmitz, Status: Pen, Time: 8:30 [facility] Start: 02-20-2022 PTRECHECKA, Provider: Aleida Metzger, Status: Pen, Time: 10:15 AM PTRECHECKA, Provider: Aleida Metzger, Status: Pen, Time: 10:15 AM [facility] Work Phone: Start: 02-17-2022 PTFUADULT4, Provider: Jane Aaron, Status: Pen, Time: 2:00 PM PTFUADULT4, Provider: Jane Aaron, Status: Pen, Time: 2:00 PM [facility] Work Phone: Start: 02-17-2022 PTFUADULT4, Provider: Miracle Schmitz, Status: Pen, Time: 8:30 AM PTFUADULT4, Provider: Miracle Schmitz, Status: Pen, Time: 8:30 AM [facility] Work Phone: Start: 02-13-2022 PTFUADULT4, Provider: Miracle Schmitz, Status: Pen, Time: 1:15 PM PTFUADULT4, Provider: Miracle Schmitz, Status: Pen, Time: 1:15 PM [facility] Work Phone: Start: 02-10-2022 PTFUADULT4, Provider: Miracle Schmitz, Status: Pen, Time: 8:30 AM PTFUADULT4, Provider: Miracle Schmitz, Status: Pen, Time: 8:30 AM [facility] Work Phone: Start: 02-08-2022 AQUATICFU4, Provider: Mel Jimenez, Status: Pen, Time: 10:00 AM AQUATICFU4, Provider: Mel Jimenez, Status: Pen, Time: 10:00 AM [facility] Work Phone: Start: 02-02-2022 AQUATICFU4, Provider: Miracle Moreno, Status: Pen, Time: 9:15 AM AQUATICFU4, Provider: Miracle Moreno, Status: Pen, Time: 9:15 AM [facility] Work Phone: Start: 01-31-2022 AQUATICFU4, Provider: Miracle Moreno, Status: Pen, Time: 10:45 AM AQUATICFU4, Provider: Miracle Moreno, Status: Pen, Time: 10:45 AM [facility] Work Phone: Start: 01-05-2022 Influenza vaccination INFLUENZA (#1) [facility] Start: 07-01-2021 COVID-19 VACCINE (3 - Booster for Maikel series) COVID-19 VACCINE (3 - Booster for Maikel series) [facility] Start: 2021 ADVANCE DIRECTIVE DISCUSSION ADVANCE DIRECTIVE DISCUSSION [facility] Start: 2021 BONE DENSITY BONE DENSITY [facility] Start: 2021 Bone Density Screening Bone Density Screening [facility] Start: 2021 Pneumococcal vaccination PNEUMOCOCCAL VACCINE SERIES (1 - PCV) [facility] Start: 2021 Pneumococcal Vaccine: 65+ (1 - PCV) Pneumococcal Vaccine: 65+ (1 - PCV) [facility] Start: 2021 PNEUMOCOCCAL: 65+ (1 - PCV) PNEUMOCOCCAL: 65+ (1 - PCV) [facility] Start: 05-07-2021 DEPRESSION ASSESSMENT DEPRESSION ASSESSMENT [facility] Start: 04-25-2021 COVID-19 VACCINE (3 - Booster for Maikel series) COVID-19 VACCINE (3 - Booster for Maikel series) [facility] Start: 11-02-2020 Mammography [facility] Start: 01-06-2020 Influenza vaccination given Sequential Influenza Vaccine (#1) [facility] Start: 10-08-2018 Colonoscopy COLONOSCOPY [facility] Start: 10-08-2018 COLORECTAL CANCER SCREENING COLORECTAL CANCER SCREENING [facility] Start: 09-28-2017 Lipid 1996 panel - Serum or Plasma Lipid Screening [facility] Start: 09-28-2017 LIPID SCREEN LIPID SCREEN [facility] Start: 2016 RSV Vaccine (1 - 1-dose 60+ series) RSV Vaccine (1 - 1-dose 60+ series) [facility] Start: 09-29-2015 DIABETES SCREEN DIABETES SCREEN [facility] Start: 09-29-2015 Diabetes Screening Diabetes Screening [facility] Start: 2006 Administration of herpes zoster vaccine Zoster Vaccines (1 of 2) [facility] Start: 2006 Screening for malignant neoplasm of colon [facility] Start: 2006 SHINGRIX VACCINE (1 of 2) SHINGRIX VACCINE (1 of 2) [facility] Start: 2001 COLOGUARD (FIT-DNA) COLOGUARD (FIT-DNA) [facility] Start: [address] COLONOGRAPHY [facility] Start: 2001 FECAL OCCULT BLOOD FECAL OCCULT BLOOD [facility] Start: 2001 Screening for malignant neoplasm of colon COLORECTAL CANCER SCREENING DISCUSSION [facility] Start: 2001 SIGMOIDOSCOPY SIGMOIDOSCOPY [facility] Start: 1996 Lipid panel LIPID SCREENING [facility] Start: 1996 Screening for malignant neoplasm of breast MAMMOGRAM SCREENING DISCUSSION [facility] Start: 1977 Screening for malignant neoplasm of cervix CERVICAL CANCER SCREENING DISCUSSION [facility] Start: 1975 Urine microalbumin profile DTAP,TDAP,TD (1 - Tdap) [facility] Start: 1974 Hepatitis C antibody, confirmatory test Hepatitis C Screening [facility] Start: 1974 HEPATITIS C SCREENING HEPATITIS C SCREENING [facility] Start: 1974 HIV SCREENING HIV SCREENING [facility] Start: 1972 COVID-19 Vaccine (1 of 2) COVID-19 Vaccine (1 of 2) [facility] Start: 1971 HIV screening HIV Screening [facility] Start: 1968 Adolescent depression screening assessment [facility] Start: 1959 History and physical examination, annual for health maintenance Wellness Visit [facility] Start: 1956 Hepatitis C antibody, confirmatory test Hepatitis C Screening [facility] Start: 1956 Hepatitis C screening HEPATITIS C VIRUS SCREENING [facility] Start: 1956 Screening for malignant neoplasm of cervix Pap Smear [facility] Start: 1956 Screening for malignant neoplasm of colon Colorectal Cancer Screening: Colonoscopy [facility] Start: 1956 Screening for osteoporosis DEXA SCAN DISCUSSION [facility] Start: 1956 Screening mammography Mammogram [facility] End: 07-25-2019 24 Hour ECG Holter monitor - 24 hour Cardiac Services Routine Palpitation Once for 1 Occurrences starting 07/25/2019 until 07/25/2019 [facility] Immunizations Immunization Date Immunization Notes Care Provider Marleny costello 02-06-2022 influenza virus vaccine, unspecified formulation Martha Bailey OD Work Phone: [facility] Payers Date Payer Category Payer Medicare [id number] 2017 Unknown [id number] 2015 Unknown [id number] 2015 Unknown M[employer] MED [employer] S UPERMED PPO xxxxxxx 2015-Present xxxxxxx [id number] 2015 Unknown [employer] UPER[employer] PPO [id number] 2015-Present [id number] 1956 Unknown [id number] 1956 Unknown [id number] 2.16.840.1.966126.3.579.2.651 1956 Unknown [id number] 2.16.840.1.006566.3.579.2.1068 1956 Unknown [id number] 2.16.840.1.543556.3.579.2.1068 1956 Unknown [id number] 2.16.840.1.215986.3.579.2.1068 1956 Unknown [id number] 2.16.840.1.655163.3.579.2.1068 1956 Unknown [id number] 2.16.840.1.022640.3.579.2.1068 1956 Unknown [id number] 2.16.840.1.754852.3.579.2.1068 1956 Unknown [id number] 2.16.840.1.361251.3.579.2.1068 1956 Unknown [id number] 2.16.840.1.180631.3.579.2.1068 1956 Unknown [id number] 2.16.840.1.383257.3.579.2.1068 1956 Unknown [id number] 2.16.840.1.096731.3.579.2.1068 1956 Unknown [id number] 2.16.840.1.955180.3.579.2.1068 1956 Unknown [id number] 2.16.840.1.784904.3.579.2.1068 1956 Unknown [id number] 2.16.840.1.959177.3.579.2.1068 1956 Unknown [id number] 2.16.840.1.119800.3.579.2.1068 1956 Unknown [id number] 2.16.840.1.092356.3.579.2.1068 1956 Unknown [id number] 2.16.840.1.490453.3.579.2.1068 1956 Unknown [id number] 2.16.840.1.367581.3.579.2.1068 1956 Unknown [id number] 2.16.840.1.239600.3.579.2.1068 1956 Unknown [id number] 1955 Unknown [id number] 1955 Unknown [id number] 1955 Unknown [id number] 1955 Unknown [id number] 1955 Unknown [id number] 1955 Unknown [id number] 1955 Unknown [id number] 1955 Unknown [id number] Medicare [id number] Unknown [id number] Social History Date Type Detail Facility Start: 10-22-2015 End: 12-13-2021 Tobacco smoking status NHIS Never smoker [facility] Start: 10-22-2015 End: 04-09-2023 Alcohol intake Current non-drinker of alcohol (finding) [facility] Start: 1955 Sex Assigned At Not on file O [facility] Start: 12-13-2021 End: 06-15-2022 Tobacco use and exposure Smokeless tobacco non-user [facility] Start: 1955 Sex Assigned At Female [facility] Start: 12-03-2021 End: 06-15-2022 Exposure to SARS-CoV-2 (event) Not sure [facility] Start: 06-15-2022 Alcohol intake Lifetime non-d ko (finding) [facility] Start: 04-09-2023 History of Social function [facility] Start: 04-09-2023 Tobacco use panel [facility] National Score (1-10 0), lower number is lower risk 47 [facility] Start: 06-17-2019 Gender identity Identifies as female gender (finding) [facility] Start: 01-24-2022 Sexual orientation Choose not to dis close [facility] Clinical Notes 12-13-2021 to 05-14-2023 Patient InstructionsCoMartha nielsen OD - 04/09/2023 10:24 AM Mona Hull MD - 06/15/2022 8:32 PM Mona Hull MD - 06/15/2022 8:32 PM ESTPatient InstructionsPatient Instructions Note Date & Type Note Facility 05-14-2023 Note HNO ID: [id number] Author: MARTHA BAILEY OD Service: ? Author Type: UNDERGROUND MINER Type: Progress Notes Filed: 05/14/2023 10:02 Note Text: ASSESSMENT/PLAN: 1. Hyperopia of both eyes - ICD9: 367.0, ICD10: H52.03 (primary diagnosis) 2. 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 Presbyopia - Both Eyes - ICD9: 367.4, ICD10: H52.4 Dispensed the updated back to be assured the back are correct. Recommended yearly exams. Martha Bailey OD I have confirmed and edited as necessary the relevant ophthalmic history, ROS, and the neuro exam findings as obtained by others. I have seen and examined this patient. [facility] 04-09-2023 Note HNO ID: [id number] Author: Martha Bailey OD Service: ? Author Type: UNDERGROUND MINER Type: Progress Notes Filed: 04/09/2023 10:35 AM Note Text: ASSESSMENT/PLAN: 1. Hyperopia of both eyes - ICD9: 367.0, ICD10: H52.03 (primary diagnosis) 2. 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 Presbyopia - Both Eyes - ICD9: 367.4, ICD10: H52.4 Continue to wear her glasses as desired. Dispensed contact lenses to try and she can order if the back are working. Continue to monitor her ocular health. Return in one month for CL check wearing most comfortable. Martha Bailey OD I have confirmed and edited as necessary the relevant ophthalmic history, ROS, and the neuro exam findings as obtained by others. I have seen and examined this patient. [facility] 04-09-2023 Instructions Matrha Bailey, OD - 04/09/2023 10:25 AM EST ASSESSMENT/PLAN: 1. Hyperopia of both eyes - ICD9: 367.0, ICD10: H52.03 (primary diagnosis) 2. 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 Presbyopia - Both Eyes - ICD9: 367.4, ICD10: H52.4 Continue to wear her glasses as desired. Dispensed contact lenses to try and she can order if the back are working. Continue to monitor her ocular health. Return in one month for CL check wearing most comfortable. documented in this encounter [facility] 04-09-2023 History of Presen t illness Narrative ASSESSMENT/PLAN: 1. Hyperopia of both eyes - ICD9: 367.0, ICD10: H52.03 (primary diagnosis) 2. 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 Presbyopia - Both Eyes - ICD9: 367.4, ICD10: H52.4 Continue to wear her glasses as desired. Dispensed contact lenses to try and she can order if the back are working. Continue to monitor her ocular health. Return in one month for CL check wearing most comfortable. Martha Bailey, MAYITO I have confirmed and edited as necessary the relevant ophthalmic history, ROS, and the neuro exam findings as obtained by others. I have seen and examined this patient. documented in this encounter [facility] 09-01-2022 History of Presen t illness Narrative Patient identified by name and .Continued with previous exercises this visit d/t lack of time. Patient did not note an increase in pain. Patient expressed that the bridges w/ marches were difficult last week and made her sore. Advised patient to perform stretches at home today since she did not perform them in therapy this visit. Was no able to add STW or new exercises this visit d/t lack of time.Treatment provided by KAYKAY Taylor under the direct supervision of Zoya Schmitz PTA. [facility] Work Phone: 06-15-2022 Physician Emergency department Note Emergency Department Report [facility] Service Date:.06/16/22 PCP: Edgar Holbrook Chief Complaint: Chief Complaint Patient presents with Abdominal Pain Pt c/o abdominal pain and nausea worsening throughout the day with fever. Pt denies vomiting. Pt reports exposed to strep; denies sore throat, cough. HPI Kaia Garcia is a 67 y.o. female presents to the ED today due to Abdominal pain. Patient states she's had upper abdominal pain that started this morning. She's had nausea without vomiting. She states 3 days ago she did have several episodes of diarrhea but that resolved. Prior abdominal surgery for endometriosis. She did not take any medication [id number] for symptomatic relief. Review of Systems: Review of Systems Constitutional: Negative for fever. HENT: Negative for sore throat. Respiratory: Negative for cough. Gastrointestinal: Positive for diarrhea and nausea. Negative for blood in stool and vomiting. Past Medical History: Past Medical History: Diagnosis Date GERD (gastroesophageal reflux disease) Hyperlipidemia Hypothyroidism Past Surgical History: No past surgical history on file. Allergies: Allergies Allergen Reactions Penicillins Rash Medications: Discharge Medication List as of 06/15/2022 11:25 PM START taking these medications Details Ondansetron 4 MG tablet Take 1 tablet by mouth every 8 hours as needed for Nausea / Vomiting or Nausea for up to 8 doses. Normal Disp-8 tablet, R-0 CONTINUE these medications which have NOT CHANGED Details OMEPRAZOLE PO Take by mouth. Historical Med Rosuvastatin 5 MG tablet Take 1 tablet by mouth daily. Historical Med Family History: History reviewed. No pertinent family history. Social History: Social History Socioeconomic History Marital status: Spouse name: Not on file Number of children: Not on file Years of education: Not on file Highest education level: Not on file Occupational History Not on file Tobacco Use Smoking status: Never Smokeless tobacco: Never Vaping Use Vaping Use: Never used Substance and Sexual Activity Alcohol use: Never Drug use: Never Sexual activity: Not on file Other Topics Concern Not on file Social History Narrative Not on file Social Determinants of Health Financial Resource Strain: Not on file Food Insecurity: Not on file Transportation Needs: Not on file Physical Activity: Not on file Stress: Not on file Social Connections: Not on file Intimate Partner Violence: Not on file Housing Stability: Not on file Physical Exam: Physical Exam Vitals and nursing note reviewed. Constitutional: General: She is not in acute distress. Appearance: She is well-developed. HENT: Head: Normocephalic and atraumatic. Mouth/Throat: Mouth: Mucous membranes are moist. Pharynx: Oropharynx is clear. Cardiovascular: Rate and Rhythm: Normal rate and regular rhythm. Pulmonary: Effort: Pulmonary effort is normal. Breath sounds: Normal breath sounds. Abdominal: General: Abdomen is protuberant. Bowel sounds are normal. Palpations: Abdomen is soft. Tenderness: There is abdominal tenderness in the right upper quadrant, epigastric area and left upper quadrant. Skin: General: Skin is warm. Capillary Refill: Capillary refill takes less than 2 seconds. Neurological: General: No focal deficit present. Mental Status: She is alert and oriented to person, place, and time. Psychiatric: Mood and Affect: Mood normal. Behavior: Behavior normal. Vital Signs During ED Visit Patient Vitals for the past 24 hrs: BP Temp Temp src Pulse Resp SpO2 Height 06/15/22 2330 134/70 97.8 F (36.6 C) Oral 80 18 99 % -- 06/15/222235 -- -- -- 90 18 100 % -- 06/15/222021 -- -- -- -- -- -- 1.651 m (5' 5 ) 06/15/222020 128/71 99.8 F (37.7 C) Oral 89 16 95 % -- Orders/Results: Orders Placed This Encounter CULTURE THROAT CT ABDOMEN/PELVIS WITH CONTRAST RAPID STREP A ANTIGEN LACTATE, BLOOD LIPASE MAGNESIUM COMPREHENSIVE METABOLIC PANEL CBC, EDIF, PLATELET Troponin I, High sensitivity Sodium chloride 0.9% IV solution 1,000 mL Ondansetron 4mg/2ml (ZOFRAN) injection 4 mg HYDROmorphone (DILAUDID) injection 0.5 mg iohexol (OMNIPAQUE) 350 MG/ML injection 75 mL Sodium chloride 0.9% IV solution 75 mL Ondansetron 4 MG tablet URINALYSIS, MACRO URINE MICROSCOPIC Results for orders placed or performed during the hospital encounter of 06/15/22 RAPID STREP A ANTIGEN Result Value Ref Range RAPID STREP, GROUP A NEGATIVE NEGATIVE LACTATE, BLOOD Result Value Ref Range LACTATE 1.0 0.7 - 2.0 mmol/L LIPASE Result Value Ref Range LIPASE 37 23 - 300 U/L MAGNESIUM Result Value Ref Range MAGNESIUM 2.0 1.6 - 2.3 MG/DL COMPREHENSIVE METABOLIC PANEL Result Value Ref Range Glucose 112 (H) 70 - 100 MG/DL BUN 14 7 - 20 MG/DL CREATININE SERUM 0.86 0.52 - 1.04 MG/DL SODIUM 136 136 - 145 MMOL/L POTASSIUM 3.7 3.5 - 5.1 MMOL/L CHLORIDE 103 98 - 107 MMOL/L CALCIUM 8.8 8.4 - 10.2 MG/DL PROTEIN, TOTAL 7.5 6.3 - 8.2 GM/DL Albumin 4.1 3.5 - 5.0 G/dl BILIRUBIN, TOTAL 0.8 0.2 - 1.2 MG/DL AST 27 15 - 41 IU/L ALKALINE PHOSPHATASE 67 38 - 126 IU/L CARBON DIOXIDE (CO2) 25 22 - 30 MMOL/L A/G Ratio 1.2 (L) 1.3 - 2.2 RATIO ALT 27 14 - 54 IU/L ESTIMATED GFR, NON AMER 70 ml/min/1.73sq.m ESTIMATED GFR, 85 ml/min/1.73sq.m GFR COMMENT Average GFR for 60-69 years old = 85. CBC, EDIF, PLATELET Result Value Ref Range WBC (WHITE BLOOD COUNT) 5.5 3.6 - 11.0 10*3/uL RBC 4.58 4.0 - 5.4 10*6/uL HEMOGLOBIN (HGB) 13.4 12.0 - 16.0 G/DL HEMATOCRIT (HCT) 40.8 36.0 - 48.0 % MEAN CELL VOLUME 89.2 80.0 - 100.0 FL Mean Cell HGB 29.2 26.0 - 35.0 PG MEAN CELL HGB CONCENTRATION 32.7 27.0 - 37.0 G/DL RBC DISTRIBUTION 14.7 (H) 11.5 - 14.5 % PLATELET COUNT 182 130.0 - 400.0 10*3/uL MEAN PLATELET VOLUME 8.6 7.4 - 11.0 FL DIFFERENTIAL TYPE AUTO DIFF % NEUTROPHILS 83.8 (H) 37.0 - 75.0 % LYMPHOCYTE 10.2 (L) 20.0 - 55.0 % MONOCYTE % 5.2 0.0 - 10.0 % EOSINOPHIL % 0.7 0.0 - 11.0 % BASOPHIL % 0.1 0.0 - 2.0 % Absolute Neutrophil Count 4.6 1.4 - 6.5 10*3/uL LYMPHOCYTES, ABSOLUTE 0.6 (L) 1.2 - 3.4 10*3/uL MONOCYTES, ABSOLUTE 0.3 0.0 - 0.7 10*3/uL ABSOLUTE EOSINOPHIL COUNT 0.0 0.0 - 0.7 10*3/uL ABSOLUTE BASOPHIL COUNT 0.0 0.0 - 0.2 10*3/uL TROPONIN I, HIGH SENSITIVITY Result Value Ref Range TROPONIN I, HIGH SENSITIVITY <2 0 - 12 pg/mL URINALYSIS, MACRO Result Value Ref Range COLOR, URINE YELLOW YELLOW APPEARANCE, URINE CLEAR CLEAR Specific [place], Urine >1.030 (H) 1.010 - 1.025 PH URINE 5.5 5.0 - 7.0 PROTEIN, URINE NEGATIVE NEGATIVE mg/dl GLUCOSE, URINE NEGATIVE NEGATIVE mg/dl KETONES, URINE NEGATIVE NEGATIVE mg/dl BILIRUBIN, URINE NEGATIVE NEGATIVE BLOOD, URINE DIPSTICK TRACE-INTACT (A) NEGATIVE NITRITES, URINE NEGATIVE NEGATIVE UROBILINOGEN, URINE 0.2 0.2 - 1.0 E.U./dL LEUKOCYTE ESTERASE, URINE SMALL (A) NEGATIVE URINE MICROSCOPIC Result Value Ref Range WBC, URINE 1 TO 5 NEGATIVE /HPF RBC, URINE NEGATIVE NEGATIVE /HPF Epithelial Cells UA 1 TO 5 /HPF Mucus NEGATIVE NEGATIVE BACTERIA, URINE NEGATIVE NEGATIVE CRYSTALS, URINE NONE NONE CASTS, URINE NONE NONE /LPF COMMENT, URINE CULTURE CRITERIA NOT MET, NO CULTURE PERFORMED. Radiographic Imaging CT ABDOMEN/PELVIS WITH CONTRAST Final Result IMPRESSION:a 1. Mild randi mesentery representing a nonspecific finding. 2. Diverticulosis without diverticulitis. Procedures: Procedures Moderate Sedation Procedure: No ED Summary/MDM Nonacute CT of the abdomen and pelvis. Labs urine reviewed. Patient's pain and nausea improved. I recommend calling her PCP tomorrow if symptoms worsen in anyway come back to the ER for reevaluation. Medical Decision Making Nausea: acute illness or injury Pain of upper abdomen: acute illness or injury Amount and/or Complexity of Data Reviewed Labs: ordered. Radiology: ordered. Risk Prescription drug management. Clinical Impression: 1. Pain of upper abdomen 2. Nausea No follow-ups on file. Discharge Medication List as of 06/15/2022 11:25 PM START taking these medications Details Ondansetron 4 MG tablet Take 1 tablet by mouth every 8 hours as needed for Nausea / Vomiting or Nausea for up to 8 doses. Normal Disp-8 tablet, R-0 Discharge Medication List as of 06/15/2022 11:25 PM An After Visit Summary was printed and given to the patient with above information. . . Obed Hull MD 06/16/22 0059 [facility] 06-15-2022 Emergency department Note Emergency Department Report [facility] Service Date:.06/16/22 PCP: Edgar Holbrook Chief Complaint: Chief Complaint Patient presents with Abdominal Pain Pt c/o abdominal pain and nausea worsening throughout the day with fever. Pt denies vomiting. Pt reports exposed to strep; denies sore throat, cough. HPI Kaia Garcia is a 67 y.o. female presents to the ED today due to Abdominal pain. Patient states she's had upper abdominal pain that started this morning. She's had nausea without vomiting. She states 3 days ago she did have several episodes of diarrhea but that resolved. Prior abdominal surgery for endometriosis. She did not take any medication [id number] for symptomatic relief. Review of Systems: Review of Systems Constitutional: Negative for fever. HENT: Negative for sore throat. Respiratory: Negative for cough. Gastrointestinal: Positive for diarrhea and nausea. Negative for blood in stool and vomiting. Past Medical History: Past Medical History: Diagnosis Date GERD (gastroesophageal reflux disease) Hyperlipidemia Hypothyroidism Past Surgical History: No past surgical history on file. Allergies: Allergies Allergen Reactions Penicillins Rash Medications: Discharge Medication List as of 06/15/2022 11:25 PM START taking these medications Details Ondansetron 4 MG tablet Take 1 tablet by mouth every 8 hours as needed for Nausea / Vomiting or Nausea for up to 8 doses. Normal Disp-8 tablet, R-0 CONTINUE these medications which have NOT CHANGED Details OMEPRAZOLE PO Take by mouth. Historical Med Rosuvastatin 5 MG tablet Take 1 tablet by mouth daily. Historical Med Family History: History reviewed. No pertinent family history. Social History: Social History Socioeconomic History Marital status: Spouse name: Not on file Number of children: Not on file Years of education: Not on file Highest education level: Not on file Occupational History Not on file Tobacco Use Smoking status: Never Smokeless tobacco: Never Vaping Use Vaping Use: Never used Substance and Sexual Activity Alcohol use: Never Drug use: Never Sexual activity: Not on file Other Topics Concern Not on file Social History Narrative Not on file Social Determinants of Health Financial Resource Strain: Not on file Food Insecurity: Not on file Transportation Needs: Not on file Physical Activity: Not on file Stress: Not on file Social Connections: Not on file Intimate Partner Violence: Not on file Housing Stability: Not on file Physical Exam: Physical Exam Vitals and nursing note reviewed. Constitutional: General: She is not in acute distress. Appearance: She is well-developed. HENT: Head: Normocephalic and atraumatic. Mouth/Throat: Mouth: Mucous membranes are moist. Pharynx: Oropharynx is clear. Cardiovascular: Rate and Rhythm: Normal rate and regular rhythm. Pulmonary: Effort: Pulmonary effort is normal. Breath sounds: Normal breath sounds. Abdominal: General: Abdomen is protuberant. Bowel sounds are normal. Palpations: Abdomen is soft. Tenderness: There is abdominal tenderness in the right upper quadrant, epigastric area and left upper quadrant. Skin: General: Skin is warm. Capillary Refill: Capillary refill takes less than 2 seconds. Neurological: General: No focal deficit present. Mental Status: She is alert and oriented to person, place, and time. Psychiatric: Mood and Affect: Mood normal. Behavior: Behavior normal. Vital Signs During ED Visit Patient Vitals for the past 24 hrs: BP Temp Temp src Pulse Resp SpO2 Height 06/15/22 2330 134/70 97.8 F (36.6 C) Oral 80 18 99 % -- 06/15/222235 -- -- -- 90 18 100 % -- 06/15/222021 -- -- -- -- -- -- 1.651 m (5' 5 ) 06/15/222020 128/71 99.8 F (37.7 C) Oral 89 16 95 % -- Orders/Results: Orders Placed This Encounter CULTURE THROAT CT ABDOMEN/PELVIS WITH CONTRAST RAPID STREP A ANTIGEN LACTATE, BLOOD LIPASE MAGNESIUM COMPREHENSIVE METABOLIC PANEL CBC, EDIF, PLATELET Troponin I, High sensitivity Sodium chloride 0.9% IV solution 1,000 mL Ondansetron 4mg/2ml (ZOFRAN) injection 4 mg HYDROmorphone (DILAUDID) injection 0.5 mg iohexol (OMNIPAQUE) 350 MG/ML injection 75 mL Sodium chloride 0.9% IV solution 75 mL Ondansetron 4 MG tablet URINALYSIS, MACRO URINE MICROSCOPIC Results for orders placed or performed during the hospital encounter of 06/15/22 RAPID STREP A ANTIGEN Result Value Ref Range RAPID STREP, GROUP A NEGATIVE NEGATIVE LACTATE, BLOOD Result Value Ref Range LACTATE 1.0 0.7 - 2.0 mmol/L LIPASE Result Value Ref Range LIPASE 37 23 - 300 U/L MAGNESIUM Result Value Ref Range MAGNESIUM 2.0 1.6 - 2.3 MG/DL COMPREHENSIVE METABOLIC PANEL Result Value Ref Range Glucose 112 (H) 70 - 100 MG/DL BUN 14 7 - 20 MG/DL CREATININE SERUM 0.86 0.52 - 1.04 MG/DL SODIUM 136 136 - 145 MMOL/L POTASSIUM 3.7 3.5 - 5.1 MMOL/L CHLORIDE 103 98 - 107 MMOL/L CALCIUM 8.8 8.4 - 10.2 MG/DL PROTEIN, TOTAL 7.5 6.3 - 8.2 GM/DL Albumin 4.1 3.5 - 5.0 G/dl BILIRUBIN, TOTAL 0.8 0.2 - 1.2 MG/DL AST 27 15 - 41 IU/L ALKALINE PHOSPHATASE 67 38 - 126 IU/L CARBON DIOXIDE (CO2) 25 22 - 30 MMOL/L A/G Ratio 1.2 (L) 1.3 - 2.2 RATIO ALT 27 14 - 54 IU/L ESTIMATED GFR, NON AMER 70 ml/min/1.73sq.m ESTIMATED GFR, 85 ml/min/1.73sq.m GFR COMMENT Average GFR for 60-69 years old = 85. CBC, EDIF, PLATELET Result Value Ref Range WBC (WHITE BLOOD COUNT) 5.5 3.6 - 11.0 10*3/uL RBC 4.58 4.0 - 5.4 10*6/uL HEMOGLOBIN (HGB) 13.4 12.0 - 16.0 G/DL HEMATOCRIT (HCT) 40.8 36.0 - 48.0 % MEAN CELL VOLUME 89.2 80.0 - 100.0 FL Mean Cell HGB 29.2 26.0 - 35.0 PG MEAN CELL HGB CONCENTRATION 32.7 27.0 - 37.0 G/DL RBC DISTRIBUTION 14.7 (H) 11.5 - 14.5 % PLATELET COUNT 182 130.0 - 400.0 10*3/uL MEAN PLATELET VOLUME 8.6 7.4 - 11.0 FL DIFFERENTIAL TYPE AUTO DIFF % NEUTROPHILS 83.8 (H) 37.0 - 75.0 % LYMPHOCYTE 10.2 (L) 20.0 - 55.0 % MONOCYTE % 5.2 0.0 - 10.0 % EOSINOPHIL % 0.7 0.0 - 11.0 % BASOPHIL % 0.1 0.0 - 2.0 % Absolute Neutrophil Count 4.6 1.4 - 6.5 10*3/uL LYMPHOCYTES, ABSOLUTE 0.6 (L) 1.2 - 3.4 10*3/uL MONOCYTES, ABSOLUTE 0.3 0.0 - 0.7 10*3/uL ABSOLUTE EOSINOPHIL COUNT 0.0 0.0 - 0.7 10*3/uL ABSOLUTE BASOPHIL COUNT 0.0 0.0 - 0.2 10*3/uL TROPONIN I, HIGH SENSITIVITY Result Value Ref Range TROPONIN I, HIGH SENSITIVITY <2 0 - 12 pg/mL URINALYSIS, MACRO Result Value Ref Range COLOR, URINE YELLOW YELLOW APPEARANCE, URINE CLEAR CLEAR Specific [place], Urine >1.030 (H) 1.010 - 1.025 PH URINE 5.5 5.0 - 7.0 PROTEIN, URINE NEGATIVE NEGATIVE mg/dl GLUCOSE, URINE NEGATIVE NEGATIVE mg/dl KETONES, URINE NEGATIVE NEGATIVE mg/dl BILIRUBIN, URINE NEGATIVE NEGATIVE BLOOD, URINE DIPSTICK TRACE-INTACT (A) NEGATIVE NITRITES, URINE NEGATIVE NEGATIVE UROBILINOGEN, URINE 0.2 0.2 - 1.0 E.U./dL LEUKOCYTE ESTERASE, URINE SMALL (A) NEGATIVE URINE MICROSCOPIC Result Value Ref Range WBC, URINE 1 TO 5 NEGATIVE /HPF RBC, URINE NEGATIVE NEGATIVE /HPF Epithelial Cells UA 1 TO 5 /HPF Mucus NEGATIVE NEGATIVE BACTERIA, URINE NEGATIVE NEGATIVE CRYSTALS, URINE NONE NONE CASTS, URINE NONE NONE /LPF COMMENT, URINE CULTURE CRITERIA NOT MET, NO CULTURE PERFORMED. Radiographic Imaging CT ABDOMEN/PELVIS WITH CONTRAST Final Result IMPRESSION:a 1. Mild randi mesentery representing a nonspecific finding. 2. Diverticulosis without diverticulitis. Procedures: Procedures Moderate Sedation Procedure: No ED Summary/MDM Nonacute CT of the abdomen and pelvis. Labs urine reviewed. Patient's pain and nausea improved. I recommend calling her PCP tomorrow if symptoms worsen in anyway come back to the ER for reevaluation. Medical Decision Making Nausea: acute illness or injury Pain of upper abdomen: acute illness or injury Amount and/or Complexity of Data Reviewed Labs: ordered. Radiology: ordered. Risk Prescription drug management. Clinical Impression: 1. Pain of upper abdomen 2. Nausea No follow-ups on file. Discharge Medication List as of 06/15/2022 11:25 PM START taking these medications Details Ondansetron 4 MG tablet Take 1 tablet by mouth every 8 hours as needed for Nausea / Vomiting or Nausea for up to 8 doses. Normal Disp-8 tablet, R-0 Discharge Medication List as of 06/15/2022 11:25 PM An After Visit Summary was printed and given to the patient with above information. . . Obed Hull MD 06/16/22 0059 documented in this encounter [facility] 04-27-2022 Miscellaneous Notes faxed [facility] doing a follow up call as they faxed mammography release on 04/20 requesting reports and have not received them advised to fax release again. documented in this encounter [facility] 03-07-2022 Instructions Breonna Juarez PA-C - 03/07/2022 2:05 PM EDT Recc: Tea Tree oil face wash ([employer]) Warm compresses to affected lids(s) 15 min twice daily. (Can try Summer mask, found on [email or web address] or at drug stores), followed by lid scrubs twice daily with dilute baby shampoo. Return precautions given. Follow up as needed documented in this encounter [facility] 03-07-2022 History of Presen t illness Narrative Still red and something still there and little dryness and itching right upper lid Ocular med Steroid wallace 2x left eye A/P: Chalazion RUL medial-resolved! Significant improvement, some itching intermittently Exam Right upper lid resolving chalazion just above lash line, flat No posterior erythema, no telangiectasias No lash loss Discussed course of chalazion/stye Can have waxing/waning course, can have others Plugged oil glands-->inflammation ball No need for treatment at this time Recc: Tea Tree oil face wash ([employer]) Warm compresses to affected lids(s) 15 min twice daily. (Can try Summer mask, found on [email or web address] or at drug [employer]), followed by lid scrubs twice daily with dilute baby shampoo. Stop Maxitrol ointment. Return precautions given. Follow up as needed I have confirmed and edited as necessary the relevant ophthalmic history, ROS, and the neuro exam findings as obtained by others. I have seen and examined this patient. I have discussed the case and the management of this patient's care with the Resident/Fellow, if applicable. I also have reviewed and agree with the assessment and plan as stated above and agree with all of its relevant components. Breonna Juarez PA-C March 07, 2022 2:04 PM documented in this encounter [facility] 02-07-2022 Instructions Jonah Farley APRN.[place] - 02/07/2022 1:59 PM EDT Discussed course of chalazion/stye Can have waxing/waning course, can have others Plugged oil glands-->inflammation ball Discussed intralesional kenalog vs medical mgmnt Patient elects: medical management Recc: Tea Tree oil face wash ([employer]) Warm compresses to affected lids(s) 15 min twice daily. (Can try Summer mask, found on [email or web address] or at drug stores), followed by lid scrubs twice daily with dilute baby shampoo. Maxitrol ointment (or drop) to affected eyes(s) twice daily x 2 weeks. Discussed risk of developing cataracts or glaucoma with long-term use. Discussed risk of infection with concomitant use of CLs. Return precautions given. Follow up in 4-6 weeks if not resolved, possible further treatment. documented in this encounter [facility] 02-07-2022 History of Presen t illness Narrative Patient states that for about 1 month she has had a lesion on the upper right eyelid. Patient has been seeing Dr. Bailey for the problem and has used eyedrops as well as Erythromycin ointment, with no resolution to the issue, didn't seem to do anything at all, per patient. Patient denies any new or worsening flashes, floaters or field defects. Patient reports some intermittent itching of that eyelid. Current Ocular Medications: None currently. A/p: 1. chalazion right upper lid x [address] Bailey 01/12/22 - started on erythromycin and doxycycline Has been using warm compresses Has been getting smaller per patient Exam Right upper lid medial chalazion just above the last line, 2mm, flat No posterior erythema No lash loss No telangiectasias Discussed course of chalazion/stye Can have waxing/waning course, can have others Plugged oil glands-->inflammation ball Discussed intralesional kenalog vs medical mgmnt Patient elects: medical management Recc: Tea Tree oil face wash ([employer]) Warm compresses to affected lids(s) 15 min twice daily. (Can try Summer mask, found on [email or web address] or at drug stores), followed by lid scrubs twice daily with dilute baby shampoo. Maxitrol ointment (or drop) to affected eyes(s) twice daily x 2 weeks. Discussed risk of developing cataracts or glaucoma with long-term use. Discussed risk of infection with concomitant use of CLs. Return precautions given. Follow up in 4-6 weeks if not resolved, possible further treatment. I have confirmed and edited as necessary the relevant ophthalmic history, ROS, and the neuro exam findings as obtained by others. I have seen and examined this patient. I have discussed the case and the management of this patient's care with the Resident/Fellow, if applicable. I also have reviewed and agree with the assessment and plan as stated above and agree with all of its relevant components. Jonah Farley APRN.TEODORO February 07, 2022 1:57 PM documented in this encounter [facility] 01-26-2022 Instructions Yobani Bailey II, OD - 01/26/2022 9:55 AM EDT Assessment and Plan D23.111 Benign neoplasm of skin of right upper eyelid (primary encounter diagnosis) Comment: Recommend consult with Dr. Mccollum's group. Appointment made. I have confirmed and edited as necessary the relevant ophthalmic history, ROS, and the neuro exam findings as obtained by others. I have seen and examined Kaia Garcia. I have discussed the case and the management of this patient's care with the Resident/Fellow, if applicable. I also have reviewed and agree with the assessment and plan as stated above and agree with all of its relevant components. Yobani Bailey II, OD documented in this encounter [facility] 01-26-2022 History of Presen t illness Narrative Assessment and Plan D23.111 Benign neoplasm of skin of right upper eyelid (primary encounter diagnosis) Comment: Recommend consult with Dr. Mccollum's group. Appointment made. I have confirmed and edited as necessary the relevant ophthalmic history, ROS, and the neuro exam findings as obtained by others. I have seen and examined Kaia Garcia. I have discussed the case and the management of this patient's care with the Resident/Fellow, if applicable. I also have reviewed and agree with the assessment and plan as stated above and agree with all of its relevant components. Yobani Bailey II OD documented in this encounter [facility] 01-12-2022 Instructions Martha Bailey OD - 01/12/2022 4:38 PM EDT ASSESSMENT/PLAN: 1. Hordeolum externum of right upper eyelid - ICD9: 373.11, ICD10: H00.011 Recommended using hot compresses 4-5 times per day. Current Ophthalmic Meds erythromycin (ROMYCIN) 5 mg/gram (0.5 %) ophthalmic ointment Use 1 application in the right eye twice daily for 10 days. Take the oral antibiotics twice a day until gone. If she develops a fever, recommended going to the emergency room. Return as 2 weeks. documented in this encounter [facility] 01-12-2022 History of Presen t illness Narrative ASSESSMENT/PLAN: 1. Hordeolum externum of right upper eyelid - ICD9: 373.11, ICD10: H00.011 Recommended using hot compresses 4-5 times per day. Current Ophthalmic Meds erythromycin (ROMYCIN) 5 mg/gram (0.5 %) ophthalmic ointment Use 1 application in the right eye twice daily for 10 days. Take the oral antibiotics twice a day until gone. If she develops a fever, recommended going to the emergency room. Return as 2 weeks. Martha Bailey, MAYITO I have confirmed and edited as necessary the relevant ophthalmic history, ROS, and the neuro exam findings as obtained by others. I have seen and examined this patient. documented in this encounter [facility] 12-13-2021 Instructions Georgina Jordan MA - 12/13/2021 10:35 AM EDT YOUR RECOVERY After your biopsy you may have: Vaginal bleeding (less than a normal menstrual period) Mild cramping Do NOT put anything in the vagina for 1 week after your endometrial biopsy. This includes: tampons douches and refraining from having sexual intercourse If you have any discomfort, you may take an over the counter pain medication (motrin, advil, ibuprofen, tylenol, etc). If this does not relieve your discomfort, contact the office. It is okay to wear a sanitary pad until the discharge and spotting stops. RISKS Although problems seldom occur with endometrial biopsies, there can be some complications. You may feel faint during and shortly after the procedure as well as have some bleeding after the procedure. There is also a risk of infection after the procedure. These complications are rare and can be easily treated. You should contact you doctor is you have any of the following: Heavy bleeding (more than your normal period) Bleeding with clots Severe abdominal pain Fever (more than 100.4F) Foul smelling vaginal discharge RESULTS We will have the results of your biopsy in 1-2 weeks. If you do not hear the results of your biopsy after 2 weeks, please contact the office for the results. If you have any additional questions or concerns please do not hesitate to contact the office. documented in this encounter [facility] 12-13-2021 History of Presen t illness Narrative Kaia Garcia is a 66 year old female who presents for problem visit of postmenopausal bleeding. Last week started spotting bright red blood and had to wear a pad for a couple of days. Denies any pain or cramping. Yesterday had small amount of darker brown blood. Postmenopausal over 15 years. No history of AUB. 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 History Comments: Sexual Activity: Not Asked; Male; not asked Contraception: No contraception data on record PAST MEDICAL HISTORY Diagnosis Date GERD (gastroesophageal reflux disease) Unspecified hypothyroidism PAST SURGICAL HISTORY Procedure Laterality Date COLONOSCOPY FLX DX W/COLLJ SPEC WHEN PFRMD Colonoscopy, Two EGD PAST SURGICAL HISTORY OF LAPAROSCOPIES X3 FAMILY HISTORY Problem Relation Age of Onset Macular Degen Mother Cataract Mother Parkinson s Disease Mother Diabetes Father Diabetes Sister Pre Diabetic GI Sister Blood Clots Brother Results of a MVA No Known Problems Daughter No Known Problems Son Social History Tobacco Use Smoking status: Never Smokeless tobacco: Never Vaping Use Vaping Use: Never used Substance Use Topics Alcohol use: No Drug use: No Current Outpatient Medications Medication Sig rosuvastatin (CRESTOR) 10 mg tablet levothyroxine (SYNTHROID) 125 mcg tablet 1/2 tablet daily omeprazole(PRILOSEC 20 MG CAP) predniSONE (DELTASONE) 20 mg tablet Take by mouth. (Patient not taking: Reported on 12/13/2021) estradiol (ESTRACE) 0.01 % (0.1 mg/gram) vaginal cream Use 0.5g daily for 2 weeks, then 2-3x per week. May use finger to apply. (Patient not taking: No sig reported) clobetasol (TEMOVATE) 0.05 % ointment Apply to affected area BID x 6 weeks then use once weekly for maintenance (Patient not taking: No sig reported) No current facility-administered medications for this visit. Allergies As of Date: 12/13/2021 Allergen Noted Reaction PENICILLINS 05/18/2005 Rash Fully Assessed 12/13/2021 REVIEW OF SYSTEMS Abdomen: No bloating, early satiety, indigestion, or increased flatulence. No abdominal pain, nausea, vomiting, diarrhea, or constipation. Bladder: No dysuria, gross hematuria, urinary frequency, urinary urgency, or incontinence. Breast: No breast lumps, nipple d/c, overlying skin changes, redness or skin retraction. Expanded ROS: N/A Allergies and current medication updated:Yes EXAM: BP 118/72 Wt 210 lb (95.3kg) LMP 05/07/2005 GENERAL: pleasant, female in no apparent distress HEENT: Normocephalic, atraumatic, and mucus membranes moist NECK: Supple and full range of motion DERMATOLOGY: Normal and without lesions BREAST: deferred CHEST: Normal inspiratory effort ABDOMEN: soft and non-tender PELVIC: external genitalia normal, normal Bartholin's glands, urethra, [place]'s glands, no vulvar lesions, no cervical lesions, good vaginal support, physiologic discharge present, normal appearing perineal body and perianal region, cystocele 2nd degree BIMANUAL: uterus normal size, shape and consistency, no adnexal masses, and non-tender NEURO: alert and oriented x3,exam grossly non-focal EXTREMITIES: normal ASSESSMENT/PLAN: 1. Post-menopausal bleeding - ICD9: 627.1, ICD10: N95.0 (primary diagnosis) - PELVIC US [facility] - ENDOMETRIAL BIOPSY - SURGICAL PATHOLOGY 2. Abnormal uterine bleeding (AUB) - ICD9: 626.9, ICD10: N93.9 3. Encounter for screening for malignant neoplasm of cervix - ICD9: V76.2, ICD10: Z12.4 - Completed pap exam - PAP FLUID CERVICAL SCREENING Will notify patient of pelvic ultrasound and EMB results Piper Rahman APRN.CNM I spent a total of 40 minutes on the date of the service which included preparing to see the patient, [id number] patient care, completing clinical documentation, obtaining and/or reviewing separately obtained history, performing a medically appropriate examination, counseling and educating the patient/family/caregiver, and ordering medications, tests, or procedures Medical Decision Making: Medical Decision Making Level: 1 - N/A Piper Rahman APRN.CNM Kaia is a 66 year old Female who presents today for an endometrial biopsy for abnormal uterine bleeding, post menopausal bleeding. test: n/a UNIVERSAL PROTOCOL / SAFETY CHECKLIST Procedure to be Performed: Endometrial Biopsy Sign In: A sign in communication was not completed due to an emergent procedure. Patient/Surrogate Stated/Verified: PATIENT VERIFIED(optional for EMERGENT procedures): Patient name, Date of , Relevant allergies, and The intended procedure Time Out Communication: Intended patient and procedure match the source documents. Consent documented and matches the intended procedure. No implant(s) inserted. Sign Out: SIGN OUT (optional for EMERGENT procedures): All specimen containers correctly labeled. All instruments, equipment, possible retained foreign bodies accounted for. Post-procedure follow-up management communicated and Plan of Care Visit completed when applicable. PROCEDURE: EXTERNAL GENITALIA: Normal in appearance without lesions VAGINA: Normal in appearance without lesions BIOPSY: Speculum placed into the vagina with excellent visualization of the cervix. Cervix cleaned with betadine. Anterior lip of cervix grasped with single toothed tenaculum. Uterus sounded to 8 cm. Pipelle inserted into the uterus without difficulty and endometrial biopsy obtained. Specimen labeled and sent to pathology. Hemostasis achieved. Procedure Summary: Patient tolerated procedure well. ASSESSMENT: abnormal uterine bleeding, post- menopausal bleeding PLAN: Specimens labeled and sent to Pathology. Will notify patient of results in 1-2 weeks. Piper Rahman APRN.CNM documented in this encounter [facility] PMB (postmenopausal bleeding)- Primary [facility] Hordeolum externum of right upper eyelid- Primary Hordeolum externum [facility] Diagnosis Benign neoplasm of skin of right upper eyelid- Primary [facility] Diagnosis Chalazion of right upper eyelid- Primary Chalazion [facility] Diagnosis Chalazion right upper eyelid- Primary [facility] Diagnosis Pain of upper abdomen- Primary Abdominal pain, other specified site Nausea Nausea alone [facility] Hyperopia of both eyes- Primary Regular astigmatism of both eyes Regular astigmatism Presbyopia - Both Eyes Presbyopia [facility] Present C/C sx of lumbar and LLE sx for 2.5 yrs. She did have an MRI, injections and previous PT. There is a future injection scheduled for 02/24/22. Physical findings include limited trunk ext and SBs' Will continue with pool unloading/core work and land flexion bias core work/ROM as nevaeh. STW can also be done PRN. * Clinical Presentation: Stable and/or uncomplicated characteristics. * Level of Complexity: low * Problem List: activity limitations, ADLs/IADLs/self care skills, decreased functional level, decreased knowledge of HEP, decreased knowledge of precautions, gait/locomotion, pain, range of motion/joint mobility and strength. [facility] Work Phone: History of Present illness Narrative* Patient confirmed name and date of . Instruction of TrA contraction at beginning of session. good understanding with trace contraction upon palpation. Patient able to engage TrA with LE/UE exercises without c/o of increased pain. Fair trunk stability noted with aquatic exercises. Good posture maintained throughout session. Decreased pain with unloading. * Interdisciplinary Team Communication: Physical Therapy . * Response to treatment: decreased pain. [facility] Work [facility]: History of Present illness Narrative* Patient confirmed name and date of . Patient able to increase reps today while maintaining fair trunk stability. Able to add step taps and dumbbell rolls today with patient demonstrating good tolerance and fair trunk stability. Patient attempted to performed unloading with less UE support, unable to maintain good posture. Reduced pain at end of session, 07/14. * Interdisciplinary Team Communication: Physical Therapy . * Response to treatment: decreased pain. [facility]: History of Present illness NarrativePatient tolerated treatment without increased pain. Patient has Fair TrA and keeps intact with ther-ex. Patient needing one UE support with LE ther-ex and no UE support with 100% unloading. Patient has good form/understanding with ther-ex and keeps body in good alignment. Added abdominals ther-ex to program. Continue with core stability while performing dyn activity to decrease back pain. [facility] Work Phone: History of Present illness Narrative* Patient needs cues for correct form and encouragement throughout PRE. * Added hip IR d/t excessive ER in B LE; L >R. * Cues to IR the hips during side steps d/t compensations. * Good technique with pelvic tilt in supine. * Continues with tightness to the R during LTR. * Guard with transfers. [facility] Work Phone: History of Present illness Narrative* Pt reassessed this date by supervising PT with improvements noted in LUmbar AROM as well as MMT in BLE's compared to eval. SHe continues to have functional deficits due to pain and radicular symptomslingering in LLE, but responded well to addition of STM this date due to lingering myofascial restriction and trigger points throughout Left hip/pelvis musculature. Pt reported good understanding of all edu provided this date and updates to HEP emailed to patient. * Response to treatment: decreased pain. * Patient was able to complete today's treatment with some difficulty. [facility] Work Phone: History of Present illness Narrative* Reviewed HEP given last visit. * Added standing hip flexor and ITB stretches this date with tightness on the R > L. Issued handout for progression of HEP. * Improved gait observed in clinic with decreased trunk flexion and guarding. * Response to treatment: decreased pain, decreased muscle guarding and improved posture. * Patient was able to complete today's treatment with some difficulty. [facility] Work Phone: History of Present illness Narrative* Continued to focus on stretching and core strengthening. * Gave handout of exercises that were completed in the pool at the start of her therapy sessions. * Patient is demonstrating improved core control with PPT. * Improved mobility with LTR. * Response to treatment: decreased pain, decreased muscle guarding and improved posture. * Patient was able to complete today's treatment with some difficulty. [facility] Work Phone: History of Present illness Narrative* Reviewed HEP given last visit. * Added standing hip flexor and ITB stretches this date with tightness on the R > L. Issued handout for progression of HEP. * Improved gait observed in clinic with decreased trunk flexion and guarding. * Response to treatment: decreased pain, decreased muscle guarding and improved posture. * Patient was able to complete today's treatment with some difficulty. [facility] Work Phone: history of Present illness Narrative* Cues to relax with SKTC d/t patient was actively flexing her leg instead of relaxing to feel the stretch. * Good technique with pelvic tilts. * Improved ability to complete standing PRE's with improved core control and stability. * Response to treatment: decreased pain, decreased muscle guarding and improved posture. * Patient was able to complete today's treatment with some difficulty. [facility] [place] Work Phone: History of Present illness Narrative* Improved glute strength progression as able. * Improved ability to complete transfers with decreased guarding. * Improved core activation for standing DLS. * Response to treatment: decreased pain, decreased muscle guarding and improved posture. * Patient was able to complete today's treatment with some difficulty. [facility] [place] Work Phone: History of Present illness Narrative* Added more glute exercises this date for focus on glute retraining. * Cues for correct form with hip hikes. * Difficulty with hike on the R d/t fatigue when standing on the L. * Fatigues quickly with newly added exercises this date. * New HEP given today,. * Response to treatment: decreased pain, decreased muscle guarding and improved posture. * Patient was able to complete today's treatment with some difficulty. [facility] [place] Work Phone: history of Present illness Narrative* Improved control with bridges with marches. * Fatigues quickly with bridges with marches. * Minimal range with hip hikes this date. * Added supine resisted marches this date for continued hip strength progression. * Clams and reverse clams were added today with cues for improved control and not trunk rolling compensations. * Response to treatment: decreased pain, decreased muscle guarding and improved posture. * Patient was able to complete today's treatment with some difficulty. [facility] [place] Work Phone: History of Present illness Narrative* arrives to outpatient PT c/o . Pt presents with the following impairments: . These impairments contribute to difficulty in activity limitations and participation restrictions including . Thept s signs and symptoms are consistent with likely . The pt will benefit from skilled PT gprgrybn8s/week for 8 weeks to address the above stated impairments and functional limitations to maximize p articipation and ease in household, social, and work related activities. The pt has a prognosis when considering positive factors including with barriers such as . The pt verbalized understanding and agreement to goals and POC. Thank you for this referral and please call [phone] with any questions or concerns. * Clinical Presentation: Stable and/or uncomplicated characteristics. * Level of Complexity: low * Problem List: activity limitations, ADLs/IADLs/self care skills, decreased knowledge of HEP, flexibility, gait/locomotion, pain, participation restrictions, range of motion/joint mobility and strength. [facility] Work Phone: History of Present illness Narrative* Kaia Garcia, a 67 year old female, arrives to outpatient PT c/o low back and radicular symptoms into L LE. Pt presents with the following impairments: L low back and L buttock/hip pain, deficits in lumbar AROM, deficits in B hip, knee, and core musculature strength, restriction of surrounding B hip and lumbopelvic region, gait biomechanic deficits, and deficits in functional mobility per LEFS score. These impairments contribute to difficulty in activity limitations and participation restrictions including standing, ambulation, stair climbing, household management, sleeping, and community engagement. The pt will benefit from skilled PT services 2x/week for 4 weeks to address the above stated impairments and functional limitations to maximize participation and ease in household and social related activities. The pt has a good prognosis when considering positive factors including age and prior improvement with PT interventions with barriers such as chronicity of pain. Educated in HEP for lumbar and hip/core strengthening with good tolerance. Verbal cues to perform within painfree ROM.Patient educated in placement of exercises bed vs floor based on comfort level d/t difficulty of performing exercises on floor. HEP handout provided. 3/10 pain at end of session. The pt verbalized understanding and agreement to goals and POC. Thank you for this referral and please call [phone] any questions or concerns. * Clinical Presentation: Stable and/or uncomplicated characteristics. * Level of Complexity: low * Problem List: activity limitations, ADLs/IADLs/self care skills, decreased knowledge of HEP, flexibility, gait/locomotion, pain, participation restrictions, range of motion/joint mobility and strength. [facility] Work Phone: History of Present illness Narrative* Patient identified by name and . * D/t patient showing up late, unable to perform STW w/ time as well as limited on progression, however, did add bridges for increasing core strength and stability. No increase in pain with exercises. Patient reports compliance with HEP. * Treatment provided by KAYKAY Tayolr under the direct supervision of Zoya Schmitz PTA. [facility] [place] Work Phone: History of Present illness Narrative* Patient identified by name and . * Patient arrived to therapy 8 minutes late this session. Performed bridge progressions this visit for increasing core stability and strength. Patient moderately challenged d/t weakness in her core andtendency to drop her hips during bridges w/ marches, verbal cues used for correction. No increase in pain with exercises. The following exercises would benefit this patient well: dynadisc exercises, pallof press, pallof walkouts. * Treatment provided by KAYKAY Taylor under the direct supervision of Zoya Schmitz PTA. [facility] [place] Work Phone: History of Present illness Narrative* Patient identified by name and * Patient 4 minutes late, and asked to leave early d/t dentist appt. Patient appropriately challengedwith palof press this date and able to tolerate proprioception with mild difficulty. Does demo slight difficulty with isometric palof walkout but able to complete reps. [facility] Work [facility]: History of Present illness Narrative* Patient identified by name and * Mild exacerbation of pain with paloff DLS. * Improved eccentric control with bridges. * Decreased guarding with bed mobility and transfers. [facility] [place] Work Phone: History of Present illness NarrativePatient identified by name and date of . Patient was able to progress with seated exercises and step ups with focus on TrA/glut contractions. She presented with palpable tension with STW that responded well with reduction of Sx after treatment. [facility] [place] Work Phone: History of Present illness Narrative* Patient identified by name and date of . * Discussed with patient positions to help decrease pain, like sitting with lumbar support. * Also discussed positions to avoid like lumbar extension. * Fatigues quickly with resisted DLS and seated exercises on dynadisc. * Tightness along L piriformis this date with relief after STW completion. [facility] Work Phone: History of Present illness NarrativePt reassessed this date by supervising PT with improvements noted in MMT, Lumbar AROM, and functional level. Pt brought all her HO's from previous session and re-organized HEP with new additions. Pt reported good understanding of all edu and updates to HEP made this date and is appropriate to attempt independence with HEP and symptom management at this time. [facility] Work Phone: Hospital Discharge instructions* Attachments The following attachments cannot be sent through Care Everywhere. * Abdominal Pain (Belarusian) documented in [facility] encounterFort [facility] HospitalReason for referral (narrative)* Outpatient Procedure (Routine) - Pending Review Specialty Diagnoses / Procedures Referred By Jaron german Referred To Contact [facility] Diagnoses Abnormal uterine bleeding (AUB) Procedures ENDOMETRIAL BIOPSY ENDOMETRIAL BX W/WO ENDOCERVIX BX W/O DILAT SPX Piper Rahman APRN.Sarah [address] [address] [facility] [address] [place] [address] Referral ID Status Reason Start Date Expiration Date Visits Requested Visits Authorized [id number] Pending Review Auto-Generat ed Referral 12/13/2021 12/13/2022 1 1 * Diagnostic Procedure Only (Routine) - Authorized Specialty Diagnoses / Procedures Referred By Jaron german Referred To Contact [facility] [place] Diagnoses Abnormal uterine bleeding (AUB) Procedures PELVIC US WHI US PELVIC NONOBSTETRIC REAL-TIME IMAGE COMPLETE Piper Rahman APRN.CNM [address] [place] [address] [address] [place] [address] Referral ID Status Reason Start Date Expiration Date Visits Requested Visits Authorized [id number] Authorized Auto-Generat ed Referral 12/13/2021 12/13/2022 1 1 [facility] for visit Narrative* Initial Evaluation . lumbar stenosis/spondylosis/spondylolisthesis. * Referred by: Chay Ramírez DO [facility] Work Phone: Reason for visit Narrative* Initial Evaluation . Sacrum disorder, lumbosacral IV disc, lumbosacral radiculitis/spondylosis, spondylolisthesis lumbar region, arthropathy of lumbar facet. * Referred by: Kait Oniel CNP [facility] Work Phone: Reason for visit Narrative* Initial Evaluation . Sacrum disorder, lumbosacral IV disc, lumbosacral radiculitis/spondylosis, spondylolisthesis lumbar region, arthropathy of lumbar facet. * Referred by: Kait Oneil CNP [facility] Work Phone: Summary Purpose Family History No Family History Records FoundNo Family History Records FoundNo Family History Records FoundNo Family History Records FoundNo Family History Records FoundNo Family History Records FoundNo Family History Records FoundNo Family History Records Found Advance Directives No Advanced Directives Records FoundDocuments on File Type Date Recorded Patient Director Hematology Expl anation Advance Directives and Livin g Will 07/25/2019 8:14 AM Documents on File Type Date Recorded Patient Director Hematology Expl anation Advance Directives and Livin g Will 07/25/2019 8:14 AM Reason for Referral Status Reason Specialty Diagnoses / Procedures Referre d By Contact Referred To Contact Closed Cardiology Diagnoses Palpitation Procedures Holter monitor - 24 hour Edgar Holbrook MD [address] [place] [address] Assessments Diagnosis Palpitation Palpitations Medications Administered Section Inactive Administered Medications - up to 3 most recent administrations Medication Order MAR Action Action Date Dose Rate Site tropicamide 1 % 1 Drop (MYDRIACYL) 1 Drop, BOTH EYES, ONCE, 1 dose, On 04/09/23 at 1030, FOR THE EYE Given 04/09/2023 10:30 AM EST 1 Drop Additional Source Comments INFORMATION SOURCE (unrecogn ized section and content) DATE CREATED AUTHOR AUTHOR'S ORGANIZ ATION 07/25/2019 [facility] DATE CREATED AUTHOR AUTHOR'S ORGANIZ ATION 07/31/2019 [facility] DATE CREATED AUTHOR AUTHOR'S ORGANIZ ATION 11/16/2021 [facility] [place] DATE CREATED AUTHOR AUTHOR'S ORGANIZ ATION 04/30/[address] 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 Pt denies vomiting. Pt reports exposed to strep; denies sore throat, cough. Reason Comments Results Reason Comments Yearly Exam Contact lens evaluation Source Comments (unrecognize d section and content) In the event this informatio n is protected by the Federal Confidentiality of Alcohol and Drug Abuse Patient Records regulations: The Federal rules restrict any use of the information to criminally investigate or prosecute any alcohol or drug abuse patient.[facility] CenterIn the event this information is protected by the Federal Confidentiality of Alcohol and Drug Abuse Patient Records regulations: The Federal rules restrict any use of the information to criminally investigate or prosecute any alcohol or drug abuse patient.[facility] CenterIn the event this information is protected by the Federal Confidentiality of Alcohol and Drug Abuse Patient Records regulations: The Federal rules restrict any use of the information to criminally investigate or prosecute any alcohol or drug abuse patient.[facility] CenterIn the event this information is protected by the Federal Confidentiality of Alcohol and Drug Abuse Patient Records regulations: The Federal rules restrict any use of the information to criminally investigate or prosecute any alcohol or drug abuse patient.[facility] CenterIn the event this information is protected by the Federal Confidentiality of Alcohol and Drug Abuse Patient Records regulations: The Federal rules restrict any use of the information to criminally investigate or prosecute any alcohol or drug abuse patient.[facility] CenterIn the event this information is protected by the Federal Confidentiality of Alcohol and Drug Abuse Patient Records regulations: The Federal rules restrict any use of the information to criminally investigate or prosecute any alcohol or drug abuse patient.[facility] CenterIn the event this information is protected by the Federal Confidentiality of Alcohol and Drug Abuse Patient Records regulations: The Federal rules restrict any use of the information to criminally investigate or prosecute any alcohol or drug abuse patient.[facility] CenterIn the event this information is protected by the Federal Confidentiality of Alcohol and Drug Abuse Patient Records regulations: The Federal rules restrict any use of the information to criminally investigate or prosecute any alcohol or drug abuse patient.[facility] Care Teams (unrecognized sec tion and content) Commercial Litigation Paralegal Relationship Specialty Start Date End Date Edgar Holbrook [address] [place] [address] PCP - General 07/25/04 Commercial Litigation Paralegal Relationship Specialty Start Date End Date Edgar Holbrook [address] [place] [address] PCP - General 07/25/04 Commercial Litigation Paralegal Relationship Specialty Start Date End Date Sheron Edgar Kern [address] [place] [address] PCP - General 07/25/04 Commercial Litigation Paralegal Relationship Specialty Start Date End Date Sheron Edgar Kern [address] [place] [address] PCP - General 07/25/04 Commercial Litigation Paralegal Relationship Specialty Start Date End Date SheronEdgar Erlin [address] [place] [address] PCP - General 07/25/04 Commercial Litigation Paralegal Relationship Specialty Start Date End Date Edgar Holbrook MD [address] [place] [address] PCP - General Family Medicine 06/15/22 Commercial Litigation Paralegal Relationship Specialty Start Date End Date Edgar Holbrook [address] [place] [address] PCP - General 07/25/04 Scheduled Active and Recently Administ ered Medications (unrecognized section and content) FOR RECORDS PERTAINING TO PATIENTS WHO ARE OR HAVE BEEN ENROLLED IN A CHEMICAL DEPENDENCY/SUBSTANCEABUSE PROGRAM, SOME INFORMATION MAY BE OMITTED. This clinical summary was aggregated from multiple sources. Caution should be exercised in using it in the provision of clinical care. This summary normalizes information from multiple sources, and as a consequence, information in this document may materially change the coding, format and clinical context of patient data. In addition, data may be omitted in some cases. CLINICAL DECISIONS SHOULD BE BASED ON THE PRIMARY CLINICAL RECORDS. [facility]. provides no warranty or guarantee of the accuracy or completeness of information in this document.
[2023-05-30 17:00] LABS: AST(SGOT) 19 U/L (15-37); Alanine Aminotransfer ALT/SGPT 29 U/L (13-56); Albumin, Serum 4.1 g/dL (3.2-5.0); Alkaline Phosphatase 86 U/L (45-117); Anion Gap 1 (5-15); BUN 13 mg/dL (7-18); BUN/Creat Ratio 14.6 RATIO (10-20); Calcium,Total 9.9 mg/dL (8.5-10.1); Chloride 108 mmol/L (98-107); Creatinine, Serum 0.89 mg/dL (0.55-1.02); EST Glomerular Filtration Rate 67 mL/min (>60); Est Glom Filt Rate - Afr Amer 82 mL/min (>60); Estimated Creatinine Clearance 72.93 ml/min; Glucose 102 mg/dL (74-106); Potassium 3.6 mmol/L (3.5-5.1); Protein, Total 8.1 g/dL (6.4-8.2); Sodium Level 138 mmol/L (136-145)
--- NOTE | 2023-05-30 17:00 | ED.RN ---
dr. shaver aware of ct results. no new orders at this time. protocols not followed for bleed per dr. shaver d/t age of probably
--- NOTE | 2023-05-30 17:20 | ED.RN ---
pt assisted up to br to void. needing some cueing when up and when back to bed asked for bra even though had not been in yet
[2023-05-30 17:40] VITALS: BP 137/68; PULSE 75; RESP 16; TEMP 36.9; O2SAT 98
--- NOTE | 2023-05-30 17:59 | ED.RN ---
432-consent for transfer gone over and signed per pt. aware of ct findings and need to see specialist. pt reported hitting head couple weeks ago hard enough to get a knot there. but denies any loc. dr. shaver aware
[2023-05-30 18:04] LABS: Partial Thromboplast Time 31.3 Seconds (24.1-36.2)
[2023-05-30 18:41] VITALS: BP 135/70; PULSE 76; RESP 20; O2SAT 97
== END 2023-05-30 19:29 | disposition short-term general hospital (02) ==
PROVIDERS: Emergency Provider Emergency Medicine; PCP Family Medicine; Visit Provider Emergency Medicine
DX: R41.0 Disorientation, unspecified (principal); I62.9 Nontraumatic intracranial hemorrhage, unspecified; E78.5 Hyperlipidemia, unspecified; E03.9 Hypothyroidism, unspecified; K21.9 Gastro-esophageal reflux disease without esophagitis; Z79.899 Other long term (current) drug therapy
CPT/HCPCS: 70450; 71045; 80053; 81001; 85025; 85610; 85730; 93005; 99285; A4216

== ENCOUNTER → 2023-06-04 | Outpatient (CLI) | payer MEDICARE, BC, SELFPAY ==
--- OUTSIDE RECORDS SUMMARY | 2023-06-04 15:32 | XMS RPT_ITS | CCD ---
Author Name Unknown Address [address] [place] [address] Organization [facility] Care Team Providers Care Belling Machine Operator Name Role Phone EDGAR HOLBROOK Attending Unavailable [...] Attending Unavaila ble [place], Dr. Edgar Kern [facility] Unavaila ble Teach, MsMarivel Bell Attending Unavaila ble [place], Dr. Edgar Kern [facility] Unavaila ble Teach, MsMarivel Carballo Arabella Attending Unavaila ble [place], Dr. Edgar Kern [facility] Unavaila ble Ramírez, Dr. Chay Srivastava Attending Unavaila ble [place], Dr. Edgar Kern [facility] Unavaila ble Ramírez, Dr. Chay Srivastava Attending Unavaila ble [place], Dr. Edgar Kern [facility] Unavaila ble Ramírez, Dr. Chay Srivastava Attending Unavaila ble [place], Dr. Edgar Kern [facility] Unavaila ble Ramírez, Dr. Chay Srivastava Attending Unavaila ble [place], Dr. Edgar Kern [facility] Unavaila ble Ramírez, Dr. Chay Srivastava Attending Unavaila ble [place], Dr. Edgar Kern [facility] Unavaila ble Ramírez, Dr. Chay Srivastava Attending Unavaila ble [place], Dr. Edgar Kern [facility] Unavaila ble [place], Dr. Edgar Kern [facility] Unavaila ble Teach, Ms. Kait Bell Attending Unavaila ble [place], Dr. Edgar Kern [facility] Unavaila ble Ramírez, Dr. Chay Srivastava Attending Unavaila ble [place], Dr. Edgar Kern [facility] Unavaila ble Ramírez, Dr. Chay Srivastava Attending Unavaila ble [place], Dr. Edgar Kern [facility] Unavaila ble Teach, Ms. Kait Bell Attending Unavaila ble [place], Dr. Edgar Kern [facility] Unavaila ble Teach, Ms. Kait Bell Attending Unavaila ble [place], Dr. Edgar Kern [facility] Unavaila ble Teach, Ms. Kait Bell Attending Unavaila ble [place], Dr. Edgar Kern [facility] Unavaila ble Teach, Ms. Kait Bell Attending Unavaila ble Teach, Ms. Kait Bell Attending Unavaila ble [place], Dr. Edgar Kern [facility] Unavaila ble Darrell, Dr. Chay Srivastava Attending Unavaila ble [place], Dr. Edgar Kern [facility] Unavaila ble Sheron, Dr. Edgar Kern [facility] Unavaila ble Darrell, Dr. Chay Srivastava Attending Unavaila ble Ramírez, Dr. Chay Srivastava Attending Unavaila ble [place], Dr. Edgar Kern [facility] Unavaila ble [place], Dr. Edgar Kern Primary [...] Propensity to adverse reactions to drug (disorder) [address] [place] [address] Medications Current Medications Medication Drug Class(es) Dates [...] 97.81 [degF] Obed Hull MD Work Phone: [facility] 06-15-2022 23:30-0500 Diastolic blood pressure 70 mm[Hg] Obed Hull MD Work Phone: [facility] 06-15-2022 23:30-0500 Heart rate 80 /min Obed Hull MD Work Phone: [facility] 06-15-2022 23:30-0500 Respiratory rate 18 /min Obed Hull MD Work Phone: [facility] 06-15-2022 23:30-0500 SaO2% (BldA) [Mass fraction] 99 % Obed Hull MD Work Phone: [facility] 06-15-2022 23:30-0500 Systolic blood pressure 134 mm[Hg] Obed Hull MD Work Phone: [facility] 06-15-2022 20:22-0500 Body height 165.1 cm Obed Hull MD Work Phone: [facility] 12-13-2021 09:49-0400 Body weight 95.25 kg Piper Rahman JUVENILE PROBATION OFFICER.CNM Work Phone: [facility] 12-13-2021 09:49-0400 Diastolic blood pressure 72 mm[Hg] Piper Rahman JUVENILE PROBATION OFFICER.CNM Work Phone: [facility] 12-13-2021 09:49-0400 Systolic blood pressure 118 mm[Hg] Piper Rahman JUVENILE PROBATION OFFICER.CNM Work Phone: [facility] Encounters Encounter Date Encounter Type Care Provider Facility Start: 05-14-2023 End: 05-14-2023 ambulatory MARTHA T LEO Facility:[facility] Start: 04-09-2023 End: 04-09-2023 ambulatory MARTHA BAILEY Facility:[facility] Start: 04-09-2023 End: 04-09-2023 Patient encounter procedure [...] Work Phone: Start: 11-03-2019 Mammography Piper guy JUVENILE PROBATION OFFICER.CNM Work Phone: Start: 10-08-2017 Colonoscopy Piper guy JUVENILE PROBATION OFFICER.CNM Work Phone: Start: 09-28-2012 Lipid 1996 panel - S lenny or Plasma Marthamarissa Bailey OD Work Phone: Plan of Treatment Date Care Activity Detail Author Start: 04-23-2028 Tetanus vaccination [facility] Start: 04-23-2028 Urine microalbumin profile DTaP,Tdap,Td Vaccine (2 - Td or Tdap) [facility] Start: 01-05-2023 Covid-19 Vaccine ( season) Covid-19 Vaccine () [facility] Start: 01-05-2023 Influenza vaccination [facility] Start: 10-20-2022 PTRECHECKA, Provider: Aleida Metzger, Status: Pen, Time: 8:00 AM PTRECHECKA, Provider: Aleida Metzger, Status: Pen, Time: 8:00 AM [facility] Work Phone: Start: 10-11-2022 PTFUADULT4, Provider: Jane Aaron, Status: Pen, Time: 8:30 AM PTFUADULT4, Provider: Jane Aaron, Status: Pen, Time: 8:30 AM [facility] Work Phone: Start: 09-22-2022 PTRECHECKA, Provider: Aleida Metzger, Status: Pen, Time: 8:15 AM PTRECHECKA, Provider: Aleida Metzger, Status: Pen, Time: 8:15 AM [facility] Work Phone: Start: 09-18-2022 PTFUADULT4, Provider: Miracle Schmitz, Status: Pen, Time: 1:15 PM PTFUADULT4, Provider: Miracle Schmitz, Status: Pen, Time: 1:15 PM [facility] Work Phone: Start: 09-15-2022 PTFUADULT4, Provider: Miracle Schmitz, Status: Pen, Time: 1:15 PM PTFUADULT4, Provider: Miracle Schmitz, Status: Pen, Time: 1:15 PM [facility] Work Phone: Start: 09-11-2022 PTFUADULT4, Provider: Nuha Garcia, Status: Pen, Time: 1:15 PM PTFUADULT4, Provider: Nuha Garcia, Status: Pen, Time: 1:15 PM [facility] Work Phone: Start: 09-08-2022 PTFUADULT4, Provider: Miracle Schmitz, Status: Pen, Time: 1:15 PM PTFUADULT4, Provider: Miracle Schmitz, Status: Pen, Time: 1:15 PM [facility] Work Phone: Start: 09-04-2022 PTFUADULT4, Provider: Miracle Schmitz, Status: Pen, Time: 1:15 PM PTFUADULT4, Provider: Miracle Schmitz, Status: Pen, Time: 1:15 PM [facility] Work Phone: Start: 09-01-2022 PTFUADULT4, Provider: Miracle Schmitz, Status: Pen, Time: 3:30 PM PTFUADULT4, Provider: Miracle Schmitz, Status: Pen, Time: 3:30 PM [facility] Work Phone: Start: 09-01-2022 PTFUADULT4, Provider: Miracle Schmitz, Status: Pen, Time: 10:45 AM PTFUADULT4, Provider: Miracle Schmitz, Status: Pen, Time: 10:45 AM [facility] Work Phone: Start: 08-28-2022 PTFUADULT4, Provider: Miracle Schmitz, Status: Pen, Time: 2:00 PM PTFUADULT4, Provider: Miracle Schmitz, Status: Pen, Time: 2:00 PM [facility] Work Phone: Start: 05-07-2022 ADVANCE DIRECTIVE DISCUSSION ADVANCE DIRECTIVE DISCUSSION [facility] Start: 05-07-2022 DEPRESSION ASSESSMENT DEPRESSION ASSESSMENT [facility] Start: 04-05-2022 PTFUADULT4, Provider: Miracle Schmitz, Status: Pen, Time: 9:15 AM PTFUADULT4, Provider: Miracle Schmitz, Status: Pen, Time: 9:15 AM [facility] Work Phone: Start: 04-03-2022 PTFUADULT4, Provider: Miracle Schmitz, Status: Pen, Time: 9:15 AM PTFUADULT4, Provider: Miracle Schmitz, Status: Pen, Time: 9:15 AM [facility] Work Phone: Start: 03-27-2022 PTFUADULT4, Provider: Miracle Schmitz, Status: Pen, Time: 9:15 AM PTFUADULT4, Provider: Miracle Schmitz, Status: Pen, Time: 9:15 AM [facility] Work Phone: Start: 03-24-2022 PTFUADULT4, Provider: Miracle Schmitz, Status: Pen, Time: 9:15 AM PTFUADULT4, Provider: Miracle Schmitz, Status: Pen, Time: 9:15 AM [facility] Work Phone: Start: 03-20-2022 PTRECHECKA, Provider: Aleida Metzger, Status: Pen, Time: 10:45 AM PTRECHECKA, Provider: Aleida Metzger, Status: Pen, Time: 10:45 AM [facility] Work Phone: Start: 03-17-2022 PTFUADULT4, Provider: Miracle Schmitz, Status: Pen, Time: 9:15 AM PTFUADULT4, Provider: Miracle Schmitz, Status: Pen, Time: 9:15 AM [facility] Work Phone: Start: 03-13-2022 PTFUADULT4, Provider: Miracle Schmitz, Status: Pen, Time: 10:45 AM PTFUADULT4, Provider: Miracle Schmitz, Status: Pen, Time: 10:45 AM [facility] Work Phone: Start: 03-10-2022 PTFUADULT4, Provider: Miracle Schmitz, Status: Pen, Time: 8:30 AM PTFUADULT4, Provider: Miracle Schmitz, Status: Pen, Time: 8:30 AM [facility] Work [facility]: Start: 03-06-2022 PTFUADULT4, Provider: Miracle Schmitz, Status: Pen, Time: 10:45 AM PTFUADULT4, Provider: Miracle Schmitz, Status: Pen, Time: 10:45 AM [facility] Work Phone: Start: 03-03-2022 PTFUADULT4, Provider: Miracle Schmitz, Status: Pen, Time: 10:45 AM PTFUADULT4, Provider: Miracle Schmitz, Status: Pen, Time: 10:45 AM [facility] Work Phone: Start: 02-27-2022 PTFUADULT4, Provider: Miracle Schmitz, Status: Pen, Time: 10:00 AM PTFUADULT4, Provider: Miracle Schmitz, Status: Pen, Time: 10:00 AM [facility] Work Phone: Start: 02-24-2022 PTFUADULT4, Provider: Miracle Schmitz, Status: Pen, Time: 8:30 AM PTFUADULT4, Provider: Miracle Schmitz, Status: Pen, Time: 8:[address] Work [facility]: Start: 02-20-2022 PTRECHECKA, Provider: Aleida Metzger, Status: Pen, Time: 10:15 AM PTRECHECKA, Provider: Aleida Metzger, Status: Pen, Time: 10:15 AM [facility] Work Phone: Start: 02-17-2022 PTFUADULT4, Provider: Jane Aaron, Status: Pen, Time: 2:00 PM PTFUADULT4, Provider: Jane Aaron, Status: Pen, Time: 2:00 PM [facility] Work Phone: Start: 02-17-2022 PTFUADULT4, Provider: Miracle Schmitz, Status: Pen, Time: 8:30 AM PTFUADULT4, Provider: Miracle Schmitz, Status: Pen, Time: 8:30 AM [facility] Work Phone: Start: 02-13-2022 PTFUADULT4, Provider: Miracle Schmitz, Status: Pen, Time: 1:15 PM PTFUADULT4, Provider: Miracle Schmitz, Status: Pen, Time: 1:15 PM [facility] Work Phone: Start: 02-10-2022 PTFUADULT4, Provider: Miracle Schmitz, Status: Pen, Time: 8:30 AM PTFUADULT4, Provider: Miracle Schmitz, Status: Pen, Time: 8:30 AM [facility] Work Phone: Start: 02-08-2022 AQUATICFU4, Provider: Mel Jimenez, Status: Pen, Time: 10:00 AM AQUATICFU4, Provider: Mel Jimenez, Status: Pen, Time: 10:00 AM [facility] Work Phone: Start: 02-02-2022 AQUATICFU4, Provider: Miracle Moreno, Status: Pen, Time: 9:15 AM AQUATICFU4, Provider: Miracle Moreno, Status: Pen, Time: 9:15 AM [facility] Work Phone: Start: 01-31-2022 AQUATICFU4, Provider: Miracle Moreno, Status: Pen, Time: 10:45 AM AQUATICFU4, Provider: Miracle Moreno, Status: Pen, Time: 10:45 AM [facility] Work Phone: Start: 01-05-2022 Influenza vaccination INFLUENZA (#1) [facility] Start: 07-01-2021 COVID-19 VACCINE (3 - Booster for Maikel series) COVID-19 VACCINE (3 - Booster for Maikel series) [facility] Start: 2021 ADVANCE DIRECTIVE DISCUSSION ADVANCE DIRECTIVE DISCUSSION [facility] Start: 2021 BONE DENSITY BONE DENSITY [facility] Start: 2021 Bone Density Screening Bone Density Screening [facility] Start: 2021 Pneumococcal vaccination PNEUMOCOCCAL VACCINE SERIES (1 - PCV) [facility] Start: 2021 Pneumococcal Vaccine: 65+ (1 - PCV) Pneumococcal Vaccine: 65+ (1 - PCV) [facility] Start: 2021 PNEUMOCOCCAL: 65+ (1 - PCV) PNEUMOCOCCAL: 65+ (1 - PCV) [facility] Start: 05-07-2021 DEPRESSION ASSESSMENT DEPRESSION ASSESSMENT [facility] Start: 04-25-2021 COVID-19 VACCINE (3 - Booster for Maikel series) COVID-19 VACCINE (3 - Booster for Maikel series) [facility] Start: 11-02-2020 Mammography [facility] Start: 01-06-2020 Influenza vaccination given Sequential Influenza Vaccine (#1) [facility] Start: 10-08-2018 Colonoscopy COLONOSCOPY [facility] Start: 10-08-2018 COLORECTAL CANCER SCREENING COLORECTAL CANCER SCREENING [facility] Start: 09-28-2017 Lipid 1996 panel - Serum or Plasma Lipid Screening [facility] Start: 09-28-2017 LIPID SCREEN LIPID SCREEN [facility] Start: 2016 RSV Vaccine (1 - 1-dose 60+ series) RSV Vaccine (1 - 1-dose 60+ series) [facility] Start: 09-29-2015 DIABETES SCREEN DIABETES SCREEN [facility] Start: 09-29-2015 Diabetes Screening Diabetes Screening [facility] Start: 2006 Administration of herpes zoster vaccine Zoster Vaccines (1 of 2) [facility] Start: 2006 Screening for malignant neoplasm of colon [facility] Start: 2006 SHINGRIX VACCINE (1 of 2) SHINGRIX VACCINE (1 of 2) [facility] Start: 2001 COLOGUARD (FIT-DNA) COLOGUARD (FIT-DNA) [facility] Start: [address] COLONOGRAPHY [facility] Start: 2001 FECAL OCCULT BLOOD FECAL OCCULT BLOOD [facility] Start: 2001 Screening for malignant neoplasm of colon COLORECTAL CANCER SCREENING DISCUSSION [facility] Start: 2001 SIGMOIDOSCOPY SIGMOIDOSCOPY [facility] Start: 1996 Lipid panel LIPID SCREENING [facility] Start: 1996 Screening for malignant neoplasm of breast MAMMOGRAM SCREENING DISCUSSION [facility] Start: 1977 Screening for malignant neoplasm of cervix CERVICAL CANCER SCREENING DISCUSSION [facility] Start: 1975 Urine microalbumin profile DTAP,TDAP,TD (1 - Tdap) [facility] Start: 1974 Hepatitis C antibody, confirmatory test Hepatitis C Screening [facility] Start: 1974 HEPATITIS C SCREENING HEPATITIS C SCREENING [facility] Start: 1974 HIV SCREENING HIV SCREENING [facility] Start: 1972 COVID-19 Vaccine (1 of 2) COVID-19 Vaccine (1 of 2) [facility] Start: 1971 HIV screening HIV Screening [facility] Start: 1968 Adolescent depression screening assessment [facility] Start: 1959 History and physical examination, annual for health maintenance Wellness Visit [facility] Start: 1956 Hepatitis C antibody, confirmatory test Hepatitis C Screening [facility] Start: 1956 Hepatitis C screening HEPATITIS C VIRUS SCREENING [facility] Start: 1956 Screening for malignant neoplasm of cervix Pap Smear [facility] Start: 1956 Screening for malignant neoplasm of colon Colorectal Cancer Screening: Colonoscopy [facility] Start: 1956 Screening for osteoporosis DEXA SCAN DISCUSSION [facility] Start: 1956 Screening mammography Mammogram [facility] End: 07-25-2019 24 Hour ECG Holter monitor - 24 hour Cardiac Services Routine Palpitation Once for 1 Occurrences starting 07/25/2019 until 07/25/2019 [facility] Immunizations Immunization Date Immunization Notes Care Provider Marleny costello 02-06-2022 influenza virus vaccine, unspecified formulation Martha Bailey OD Work Phone: [facility] Payers Date Payer Category Payer Medicare [id number] 2017 Unknown [id number]. [id number] 2015 Unknown [id number] 2015 Unknown MMO MED MUTUAL S UPERMED PPO [id number] 2015-Present [id number] 2015 Unknown MMO MED M[employer] S UPERMED PPO [id number] 2015-Present [id number] 1956 Unknown [id number] 2.16.840.1.412460.3.579.2.903 1956 Unknown [id number] 2.16.840.1.213534.3.579.2.651 1956 Unknown [id number] 2.16.840.1.087211.3.579.2.1068 1956 Unknown [id number] 2.16.840.1.894605.3.579.2.1068 1956 Unknown [id number] 2.16.840.1.699750.3.579.2.1068 1956 Unknown [id number] 2.16.840.1.484690.3.579.2.1068 1956 Unknown [id number] 2.16.840.1.708119.3.579.2.1068 1956 Unknown [id number] 2.16.840.1.040704.3.579.2.1068 1956 Unknown [id number] 2.16.840.1.001789.3.579.2.1068 1956 Unknown [id number] 2.16.840.1.266537.3.579.2.1068 1956 Unknown [id number] 2.16.840.1.135861.3.579.2.1068 1956 Unknown [id number] 2.16.840.1.594781.3.579.2.1068 1956 Unknown [id number] 2.16.840.1.574207.3.579.2.1068 1956 Unknown [id number] 2.16.840.1.198395.3.579.2.1068 1956 Unknown [id number] 2.16.840.1.373162.3.579.2.1068 1956 Unknown [id number] 2.16.840.1.862007.3.579.2.1068 1956 Unknown [id number] 2.16.840.1.619815.3.579.2.1068 1956 Unknown [id number] 2.16.840.1.584089.3.579.2.1068 1956 Unknown [id number] 2.16.840.1.698305.3.579.2.1068 1956 Unknown [id number] 2.16.840.1.924571.3.579.2.1068 1956 Unknown [id number] 2.16.840.1.066730.3.579.2.1068 1956 Unknown [id number] 2.16.840.1.689329.3.579.2.1068 1956 Unknown [id number] 2.16.840.1.191291.3.579.2.1068 1956 Unknown [id number] 2.16.840.1.088079.3.579.2.1068 1956 Unknown [id number] 2.16.840.1.087698.3.579.2.1068 1956 Unknown [id number] 2.16.840.1.397004.3.579.2.1068 1956 Unknown [id number] 2.16.840.1.177172.3.579.2.1069 1956 Unknown [id number] 2.16.840.1.906260.3.579.2.1069 1956 Unknown [id number] 2.16.840.1.081258.3.579.2.1069 Medicare [id number] Unknown [id number] Social History Date Type Detail Facility Start: 10-22-2015 End: 12-13-2021 Tobacco smoking status NHIS Never smoker [facility] Start: 10-22-2015 End: 04-09-2023 Alcohol intake Current non-drinker of alcohol (finding) [facility] Start: 1955 Sex Assigned At Not on file [facility] Start: 12-13-2021 End: 06-15-2022 Tobacco use and exposure Smokeless tobacco non-user [facility] Start: 1955 Sex Assigned At Female [facility] Start: 12-03-2021 End: 06-15-2022 Exposure to SARS-CoV-2 (event) Not sure [facility] Start: 06-15-2022 Alcohol intake Lifetime non-d ko (finding) [facility] Start: 04-09-2023 History of Social function [facility] Start: 04-09-2023 Tobacco use panel [facility] National Score (1-10 0), lower number is lower risk 47 [facility] Start: 06-17-2019 Gender identity Identifies as female gender (finding) [facility] Start: 01-24-2022 Sexual orientation Choose not to dis close [facility] Clinical Notes 12-13-2021 to 05-14-2023 Patient InstructionsCoMartha nielsen OD - 04/09/2023 10:24 AM Mona Hull MD - 06/15/2022 8:32 PM Mona Hull MD - 06/15/2022 8:32 PM ESTPatient InstructionsPatient Instructions Note Date & Type Note Facility 05-14-2023 Note HNO ID: [id number] Author: MARTHA BAILEY OD Service: ? Author Type: OVERHEAD IRRIGATOR Type: Progress Notes Filed: 05/14/2023 10:02 Note [...] I have seen and examined this patient. [facility] 04-09-2023 Note HNO ID: [id number] Author: Martha Bailey OD Service: ? Author Type: OVERHEAD IRRIGATOR Type: Progress Notes Filed: 04/09/2023 10:35 AM [...] I have seen and examined this patient. [facility] 04-09-2023 Instructions Martha Bailey, OD - 04/09/2023 10:25 AM EST [...] wearing most comfortable. documented in this encounter [facility] 04-09-2023 History of Presen t illness [...] examined this patient. documented in this encounter [facility] 09-01-2022 History of Presen t illness [...] direct supervision of Zoya Schmitz PTA. [facility] Work Phone: 06-15-2022 Physician Emergency department Note Emergency Department Report [facility] Service Date:.06/16/22 PCP: Edgar Holbrook [...] endometriosis. She did not take any medication [id number] for symptomatic relief. Review of Systems: Review [...] YELLOW YELLOW APPEARANCE, URINE CLEAR CLEAR Specific [place], Urine >1.030 (H) 1.010 - 1.025 PH [...] . . Obed Hull MD 06/16/22 0059 [facility] 06-15-2022 Emergency department Note Emergency Department Report [facility] Service Date:.06/16/22 PCP: Edgar Holbrook [...] endometriosis. She did not take any medication [id number] for symptomatic relief. Review of Systems: Review [...] YELLOW YELLOW APPEARANCE, URINE CLEAR CLEAR Specific [place], Urine >1.030 (H) 1.010 - 1.025 PH [...] MD 06/16/22 0059 documented in this encounter [facility] 04-27-2022 Miscellaneous Notes faxed [facility] doing a follow up call as they faxed mammography release on 04/20 requesting reports and have not received them advised to fax release again. documented in this encounter [facility] 03-07-2022 Instructions Breonna Juarez PA-C - 03/07/2022 2:05 PM EDT Recc: Tea Tree oil face wash ([employer]) Warm compresses to affected lids(s) 15 min twice daily. (Can try Summer mask, found on [employer] or at drug stores), followed by lid scrubs twice daily with dilute baby shampoo. Return precautions given. Follow up as needed documented in this encounter [facility] 03-07-2022 History of Presen t illness [...] daily. (Can try Summer mask, found on [employer] or at drug [employer]), followed by lid scrubs twice daily with [...] 2022 2:04 PM documented in this encounter [facility] 02-07-2022 Instructions Jonah Farley APRN.TEODORO - 02/07/2022 1:59 PM EDT Discussed course of chalazion/stye Can have waxing/waning course, can have others Plugged oil glands-->inflammation ball Discussed intralesional kenalog vs medical mgmnt Patient elects: medical management Recc: Tea Tree oil face wash ([employer]) Warm compresses to affected lids(s) 15 min twice daily. (Can try Summer mask, found on [employer] or at drug stores), followed by lid scrubs twice daily with dilute baby shampoo. Maxitrol ointment (or drop) to affected eyes(s) twice daily x 2 weeks. Discussed risk of developing cataracts or glaucoma with long-term use. Discussed risk of infection with concomitant use of CLs. Return precautions given. Follow up in 4-6 weeks if not resolved, possible further treatment. documented in this encounter [facility] 02-07-2022 History of Presen t illness [...] daily. (Can try Summer mask, found on [employer] or at drug stores), followed by lid [...] 2022 1:57 PM documented in this encounter [facility] 01-26-2022 Instructions Yobani Bailey II, OD [...] Bailey II, OD documented in this encounter [facility] 01-26-2022 History of Presen t illness [...] Bailey II OD documented in this encounter [facility] 01-12-2022 Instructions Martha Bailey OD - [...] as 2 weeks. documented in this encounter [facility] 01-12-2022 History of Presen t illness [...] examined this patient. documented in this encounter [facility] 12-13-2021 Instructions Georgina Jordan MA - [...] contact the office. documented in this encounter [facility] 12-13-2021 History of Presen t illness [...] L2 SAB0 IAB0 Ectopic0 Multiple0 Live Births2 Timekeeper History LMP: 05/07/2005, Postmenopausal Age at Menarche: Age at First : Age at Menopause: Timekeeper History Comments: Sexual Activity: Not Asked; Male; [...] external genitalia normal, normal Bartholin's glands, urethra, [place]'s glands, no vulvar lesions, no cervical lesions, good vaginal support, physiologic discharge present, normal appearing perineal body and perianal region, cystocele 2nd degree BIMANUAL: uterus normal size, shape and consistency, no adnexal masses, and non-tender NEURO: alert and oriented x3,exam grossly non-focal EXTREMITIES: normal ASSESSMENT/PLAN: 1. Post-menopausal bleeding - ICD9: 627.1, ICD10: N95.0 (primary diagnosis) - PELVIC US [facility] - ENDOMETRIAL BIOPSY - SURGICAL PATHOLOGY 2. [...] which included preparing to see the patient, [id number] patient care, completing clinical documentation, obtaining and/or [...] Piper Rahman APRN.CNM documented in this encounter [facility] Diagnosis PMB (postmenopausal bleeding)- Primary Post[facility] Hordeolum externum of right upper eyelid- Primary Hordeolum externum [facility] Diagnosis Benign neoplasm of skin of right upper eyelid- Primary [facility] Diagnosis Chalazion of right upper eyelid- Primary Chalazion [facility] Diagnosis Chalazion right upper eyelid- Primary [facility] Diagnosis Pain of upper abdomen- Primary Abdominal pain, other specified site Nausea Nausea alone [facility] Hyperopia of both eyes- Primary Regular astigmatism of both eyes Regular astigmatism Presbyopia - Both Eyes Presbyopia [facility] N[facility]* Present C/C [...] range of motion/joint mobility and strength. [facility] Work Phone: History of Present illness Narrative* [...] . * Response to treatment: decreased pain. [facility] Work Phone: History of Present illness Narrative* [...] . * Response to treatment: decreased pain. [facility] History of Present [...] activity to decrease back pain. [facility] Work Phone: History of Present illness Narrative* Patient needs cues for correct form and encouragement throughout PRE. * Added hip IR d/t excessive ER in B LE; L >R. * Cues to IR the hips during side steps d/t compensations. * Good technique with pelvic tilt in supine. * Continues with tightness to the R during LTR. * Guard with transfers. [facility] Work Phone: History of Present illness Narrative* [...] complete today's treatment with some difficulty. [facility] Work Phone: History of Present illness Narrative* [...] complete today's treatment with some difficulty. [facility] Work Phone: History of Present illness Narrative* [...] to complete today's treatment with some difficulty. [facility] Work Phone: History of Present [...] to complete today's treatment with some difficulty. [facility] Work Phone: history of Present illness [...] to complete today's treatment with some difficulty. [facility] [place] Work Phone: History of Present illness Narrative* Improved glute strength progression as able. * Improved ability to complete transfers with decreased guarding. * Improved core activation for standing DLS. * Response to treatment: decreased pain, decreased muscle guarding and improved posture. * Patient was able to complete today's treatment with some difficulty. [facility] [place] Work Phone: History of Present illness Narrative* [...] to complete today's treatment with some difficulty. [facility] [place] Work Phone: history of Present illness Narrative* [...] complete today's treatment with some difficulty. [facility] [place] Work Phone: History of Present illness Narrative* arrives to outpatient PT c/o . Pt presents with the following impairments: . These impairments contribute to difficulty in activity limitations and participation restrictions including . Thept s signs and symptoms are consistent with likely . The pt will benefit from skilled PT [id number]/week for 8 weeks to address the above stated impairments and functional limitations to maximize p articipation and ease in household, social, and work related activities. The pt has a prognosis when considering positive factors including with barriers such as . The pt verbalized understanding and agreement to goals and POC. Thank you for this referral and please call [phone] with any questions or concerns. * Clinical Presentation: Stable and/or uncomplicated characteristics. * Level of Complexity: low * Problem List: activity limitations, ADLs/IADLs/self care skills, decreased knowledge of HEP, flexibility, gait/locomotion, pain, participation restrictions, range of motion/joint mobility and strength. [facility] Work Phone: History of Present illness Narrative* [...] you for this referral and please call [phone] any questions or concerns. * Clinical Presentation: Stable and/or uncomplicated characteristics. * Level of Complexity: low * Problem List: activity limitations, ADLs/IADLs/self care skills, decreased knowledge of HEP, flexibility, gait/locomotion, pain, participation restrictions, range of motion/joint mobility and strength. [facility] Work Phone: History of Present illness Narrative* Patient identified by name and . * D/t patient showing up late, unable to perform STW w/ time as well as limited on progression, however, did add bridges for increasing core strength and stability. No increase in pain with exercises. Patient reports compliance with HEP. * Treatment provided by KAYKAY Taylor under the direct supervision of Zoya Schmitz PTA. [facility] [place] Work Phone: History of Present illness Narrative* [...] the direct supervision of Zoya Schmitz PTA. [facility] [place] Work Phone: History of Present illness Narrative* Patient identified by name and * Patient 4 minutes late, and asked to leave early d/t dentist appt. Patient appropriately challengedwith palof press this date and able to tolerate proprioception with mild difficulty. Does demo slight difficulty with isometric palof walkout but able to complete reps. [facility] Work [facility]: History of Present illness Narrative* Patient identified by name and * Mild exacerbation of pain with paloff DLS. * Improved eccentric control with bridges. * Decreased guarding with bed mobility and transfers. [facility] Work Phone: History of Present illness NarrativePatient identified by name and date of . Patient was able to progress with seated exercises and step ups with focus on TrA/glut contractions. She presented with palpable tension with STW that responded well with reduction of Sx after treatment. [facility] Work Phone: History of Present illness Narrative* Patient identified by name and date of . * Discussed with patient positions to help decrease pain, like sitting with lumbar support. * Also discussed positions to avoid like lumbar extension. * Fatigues quickly with resisted DLS and seated exercises on dynadisc. * Tightness along L piriformis this date with relief after STW completion. [facility] Work Phone: History of Present illness NarrativePt [...] and symptom management at this time. [facility] Work Phone: Hospital Discharge instructions* Attachments The following attachments cannot be sent through Care Everywhere. * Abdominal Pain (Maltese) [facility] (n[facility])* Outpatient Procedure (Routine) - Pending Review Specialty Diagnoses / Procedures Referred By Jaron german Referred To Contact [facility] Diagnoses Abnormal uterine bleeding (AUB) Procedures ENDOMETRIAL BIOPSY ENDOMETRIAL BX W/WO ENDOCERVIX BX W/O DILAT SPX Piper Rahman APRN.Sarah [address] [address] [facility] [address] [place] [address] Referral ID Status Reason Start Date Expiration Date Visits Requested Visits Authorized [id number] Pending Review Auto-Generat ed Referral 12/13/2021 12/13/2022 1 1 * Diagnostic Procedure Only (Routine) - Authorized Specialty Diagnoses / Procedures Referred By Jaron german Referred To Contact [facility] Diagnoses Abnormal uterine bleeding (AUB) Procedures PELVIC US WHI US PELVIC NONOBSTETRIC REAL-TIME IMAGE COMPLETE Piper Rahman APRN.CNM [address] [place] [address] [id number] [place] [address] Referral ID Status Reason Start Date Expiration Date Visits Requested Visits Authorized [id number] Authorized Auto-Generat ed Referral 12/13/2021 12/13/2022 1 1 [facility] for visit Narrative* Initial Evaluation . lumbar stenosis/spondylosis/spondylolisthesis. * Referred by: Chay Ramírez DO [facility] Work Phone: Reason for visit Narrative* Initial Evaluation . Sacrum disorder, lumbosacral IV disc, lumbosacral radiculitis/spondylosis, spondylolisthesis lumbar region, arthropathy of lumbar facet. * Referred by: Kait Oneil CNP [facility] Work Phone: Reason for visit Narrative* Initial Evaluation . Sacrum disorder, lumbosacral IV disc, lumbosacral radiculitis/spondylosis, spondylolisthesis lumbar region, arthropathy of lumbar facet. * Referred by: Kait Oneil CNP [facility] Work Phone: Summary Purpose Family History No Family History Records FoundNo Family History Records FoundNo Family History Records FoundNo Family History Records FoundNo Family History Records FoundNo Family History Records FoundNo Family History Records FoundNo Family History Records Found Advance Directives No Advanced Directives Records FoundDocuments on File Type Date Recorded Patient Diver Assistant Expl anation Advance Directives and Livin g Will 07/25/2019 8:14 AM Documents on File Type Date Recorded Patient Diver Assistant Expl anation Advance Directives and Livin g Will 07/25/2019 8:14 AM Reason for Referral Status Reason Specialty Diagnoses / Procedures Referre d By Contact Referred To Contact Closed Cardiology Diagnoses Palpitation Procedures Holter monitor - 24 hour Edgar Holbrook MD [address] [place] [address] Assessments Diagnosis Palpitation Palpitations Medications Administered Section [...] DATE CREATED AUTHOR AUTHOR'S ORGANIZ ATION 07/25/2019 [facility] DATE CREATED AUTHOR AUTHOR'S ORGANIZ ATION 07/31/2019 [facility] DATE CREATED AUTHOR AUTHOR'S ORGANIZ ATION 11/16/2021 [facility] [place] DATE CREATED AUTHOR AUTHOR'S ORGANIZ ATION 04/30/2022 [facility] DATE CREATED AUTHOR AUTHOR'S ORGANIZ ATION 11/18/2022 [facility] DATE CREATED AUTHOR AUTHOR'S ORGANIZ ATION 11/18/2022 [facility] DATE CREATED AUTHOR AUTHOR'S ORGANIZ ATION 05/14/2023 [facility] Reason for Visit (unrecogniz ed section and content) Reason Comments Vaginal Bleeding Reason Comments DEVELOPMENT INTERN Ultrasound Reason Comments Eye Crusting Right Eye [...] or prosecute any alcohol or drug abuse patient.[facility] the event this information is protected by the Federal Confidentiality of Alcohol and Drug Abuse Patient Records regulations: The Federal rules restrict any use of the information to criminally investigate or prosecute any alcohol or drug abuse patient.[facility] the event this information is protected by the Federal Confidentiality of Alcohol and Drug Abuse Patient Records regulations: The Federal rules restrict any use of the information to criminally investigate or prosecute any alcohol or drug abuse patient.[facility] the event this information is protected by the Federal Confidentiality of Alcohol and Drug Abuse Patient Records regulations: The Federal rules restrict any use of the information to criminally investigate or prosecute any alcohol or drug abuse patient.[facility] the event this information is protected by the Federal Confidentiality of Alcohol and Drug Abuse Patient Records regulations: The Federal rules restrict any use of the information to criminally investigate or prosecute any alcohol or drug abuse patient.[facility] the event this information is protected by the Federal Confidentiality of Alcohol and Drug Abuse Patient Records regulations: The Federal rules restrict any use of the information to criminally investigate or prosecute any alcohol or drug abuse patient.[facility] Center[facility] the event this information is protected by the Federal Confidentiality of Alcohol and Drug Abuse Patient Records regulations: The Federal rules restrict any use of the information to criminally investigate or prosecute any alcohol or drug abuse patient.[facility] CenterIn the event this information is protected by the Federal Confidentiality of Alcohol and Drug Abuse Patient Records regulations: The Federal rules restrict any use of the information to criminally investigate or prosecute any alcohol or drug abuse patient.[facility] Care Teams (unrecognized sec tion and content) Belling Machine Operator Relationship Specialty Start Date End Date Edgar Holbrook [address] [place] [address] PCP - General 07/25/04 Belling Machine Operator Relationship Specialty Start Date End Date Edgar Holbrook [address] [place] [address] PCP - General 07/25/04 Belling Machine Operator Relationship Specialty Start Date End Date Sheron Edgar Kern [address] [place] [address] PCP - General 07/25/04 Belling Machine Operator Relationship Specialty Start Date End Date Sheron Edgar Kern [address] [place] [address] PCP - General 07/25/04 Belling Machine Operator Relationship Specialty Start Date End Date SheronEdgar Erlin [address] [place] [address] PCP - General 07/25/04 Belling Machine Operator Relationship Specialty Start Date End Date Edgar Holbrook MD [address] [place] [address] PCP - General Family Medicine 06/15/22 Belling Machine Operator Relationship Specialty Start Date End Date Edgar Holbrook [address] [place] [address] PCP - General 07/25/04 Scheduled Active and [...] BE BASED ON THE PRIMARY CLINICAL RECORDS. [facility]. provides no warranty or guarantee of the accuracy or completeness of information in this document.
[2023-06-04 17:06] LABS: Absolute Lymphocyte Count 1.45 X10^3/uL (0.83-4.51); Absolute Neutrophil Count 3.7 X10^3/uL (2.0-7.7); Basophil# 0.02 X10^3/uL; Basophil% 0.3 % (0-1); Eosinophil# 0.14 X10^3/uL; Eosinophils% 2.4 % (0-5); Hematocrit 39.4 % (37-47); Hemoglobin 12.7 g/dL (12.0-15.0); Lymphocyte # 1.45 X10^3/ul (0.83-4.51); Lymphocyte % 25.1 % (19-41); Mean Corp Hgb Conc 32.2 g/dL (32-36); Mean Corpuscular Hgb 28.9 pg (27.0-32.0); Mean Corpuscular Volume 89.7 fL (81-99); Mean Platelet Vol. 10.2 fl (6.2-12.0); Monocyte# 0.45 X10^3/uL; Monocyte% 7.8 % (0-10); NRBC Flagged by Analyzer 0 % (0-5); Neutrophil % 64.2 % (47-70); Platelet Count 269 K/mm3 (150-450); RBC Distribution Width SD 46.2 fl (35.1-43.9); Red Blood Count 4.39 M/mm3 (4.2-5.4); White Blood Count 5.8 K/mm3 (4.4-11.0)
[2023-06-04 17:15] LABS: ALB/GLOB Ratio 0.9 RATIO (0.9-2.4); AST(SGOT) 29 U/L (15-37); Alanine Aminotransfer ALT/SGPT 33 U/L (13-56); Albumin, Serum 3.7 g/dL (3.2-5.0); Alkaline Phosphatase 80 U/L (45-117); Anion Gap 5 (5-15); BUN 17 mg/dL (7-18); BUN/Creat Ratio 15.6 RATIO (10-20); Calcium,Total 9.1 mg/dL (8.5-10.1); Chloride 106 mmol/L (98-107); Cholesterol 143 mg/dL (200); Creatinine, Serum 1.09 mg/dL (0.55-1.02); EST Glomerular Filtration Rate 53 mL/min (>60); Est Glom Filt Rate - Afr Amer 64 mL/min (>60); Globulin 3.9 g/dL (2.2-4.2); Glucose 108 mg/dL (74-106); High Density Lipoprotein 58 mg/dL; Potassium 3.9 mmol/L (3.5-5.1); Protein, Total 7.6 g/dL (6.4-8.2); Sodium Level 140 mmol/L (136-145); Thyroid Stim Hormone (TSH) 2.05 uIU/mL (0.358-3.74); Triglycerides 128 mg/dL; Very Low Density Lipoprotein 26 mg/dL (5-40)
[2023-06-04 17:47] LABS: Hepatitis C Antibody Non-Reactive (Nonreactive); Vitamin D,25 Hydroxy 37.4 ng/mL
== END | disposition home or self-care (01) ==
LOC: POLAB3 15:12
PROVIDERS: PCP Family Medicine; Visit Provider Family Medicine Geriatric Medicine
DX: E03.9 Hypothyroidism, unspecified (principal); E55.9 Vitamin D deficiency, unspecified; E78.5 Hyperlipidemia, unspecified; Z13.89 Encounter for screening for other disorder
CPT/HCPCS: 36415; 80053; 80061; 82306; 84443; 85025; 86803

== ENCOUNTER → 2023-06-29 | Outpatient (CLI) | payer MEDICARE, BC, SELFPAY ==
--- NOTE | 2023-06-29 13:34 | BD_ITS ---
STUDY: DUAL ENERGY X-RAY ABSORPTIOMETRY / DXA REASON FOR EXAM: Female, 68 years old. 627.8Menopausal postmenopausal BONE DENSITY REASON FOR EXAM TECHNIQUE: Bone Mineral Density (BMD) measurements of lumbar spine and bilateral hips were obtained. COMPARISON: None. FINDINGS: Lumbar Spine (L1-L4): g/cm2 (0.955) / T-score (-0.8) / Z-score (1.1) Findings are suggestive of normal bone density with a low fracture risk. Left Femur Total: g/cm2 (0.997) / T-score (0.4) / Z-score (1.8) Left Femoral Neck: g/cm2 (0.783) / T-score (-0.6) / Z-score (1.0) Right Femur Total: g/cm2 (0.942) / T-score (0.0) / Z-score (1.3) Right Femoral Neck: g/cm2 (0.708) / T-score (-1.3) / Z-score (0.3) BD/Dexa Bone Density Study IMPRESSION: The patient is considered osteopenic as outlined below according to World Ricardo Organization (WHO) criteria with a low fracture risk. Reference Information: The T-score is the number of standard deviations above or below the standard which is normal for young adults at their peak bone mineral density. The World Health Organization (WHO) interprets the T-scores as follows: Above -1 Normal bone density Between -1 and -2.5 Osteopenia Equal to / or below -2.5 Osteoporosis As a practical clinical guideline, osteopenia may be graded as follows: Mild -1 through -1.5 Moderate -1.6 through -2.0 Severe -2.1 through -2.4 The Z-score is the number of standard deviations above or below age-matched controls. A Z-score of less than -1.5 would be considered abnormal. References: 1. NIH Osteoporosis and Related Bone Diseases www osteo.org 2. International Society for Clinical Densitometry www iscd.org 3. National Osteoporosis Foundation www nof.org Electronically Signed: Dax Guy MD at 9:24 EST ,
== END | disposition home or self-care (01) ==
LOC: OPBD 13:32
PROVIDERS: PCP Family Medicine Geriatric Medicine; Referring Provider Family Medicine Geriatric Medicine; Visit Provider Family Medicine Geriatric Medicine
DX: Z78.0 Asymptomatic menopausal state (principal)
CPT/HCPCS: 77080

== ENCOUNTER → 2023-07-05 | Outpatient (CLI) | payer MEDICARE, BC, SELFPAY ==
[2023-07-05 11:52] LABS: Anion Gap 3 (5-15); BUN 12 mg/dL (7-18); Calcium,Total 9.3 mg/dL (8.5-10.1); Chloride 107 mmol/L (98-107); EST Glomerular Filtration Rate 59 mL/min (>60); Est Glom Filt Rate - Afr Amer 71 mL/min (>60); Glucose 101 mg/dL (74-106); Sodium Level 139 mmol/L (136-145)
== END | disposition home or self-care (01) ==
LOC: POLAB3 10:39
PROVIDERS: PCP Family Medicine Geriatric Medicine; Visit Provider Family Medicine Geriatric Medicine
DX: E78.5 Hyperlipidemia, unspecified (principal)
CPT/HCPCS: 36415; 80048

== ENCOUNTER 2023-12-25 09:30 | Outpatient (RCR) | payer MEDICARE, BC, SELFPAY ==
--- NOTE | 2023-06-21 11:51 | HP.PTEVAL_ITS ---
Patient's Visit Information Visit Information Visit Information: ALFRED DE PAZ is a 68 year old F referred to Physical Therapy by Dr. Romeo Shankar MD with a diagnosis of Hemmorhage stroke. Date of Evaluation: 06/21/23 Physical Therapist: Salomón Johnson, DPT, OCS, CSCS Visit Plan Frequency: 1x/Week Duration: 4-6 Weeks Plan: 1x/week to progress HEP of (today chair squats, heel raises and 2x/day walking 15 min) to LE strength and balance, mnext session hip and knee progression, core and foam balance. Subjective Subjective: Comes from speech and OT today. Brought by daughter today. They live around [place] and cannot drive yet. A month ago bumped head on a door frame. Was not acting like herself over the next couple weeks according to dtr adn . Pt did not notice anything unusual. Went to ER and they did bloodwork and catscan and had a brain bleed. Sent to [facility] and that was a couple weeks ago. Had many more diagnostics and was there two nights. Had speech, OT adn PT. Said it will heal itself. I feel perfectly fine. I talk fine. Worries about balance in the last month. Feels more unsteady but no falls, no pain. No numbness or tingling in legs but a little in R hand. H/o spinal stenosis which has not been a problem. Sleeping is OK. Better since this happened. 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 Just worries a little bit about laundry front tie loader and bending and transferring laundry. No regular exercise. 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 Used to play pick [employer] ball prior to this. Basic ADLs at home: Dresses self, shower and bathroom I. Steps at home 3 to enter with a hand hold, will get rail. Objective Objective: Walks with slight L antalgia at first which then smooths out but no pain and I 300 feet. Steps are reciprocal with one rail but prefers R up, L feels slightly weaker. bed and chair transfers are I. MMT: LE no obvious asymmetries and 4-/5 B, able to heel and toe raise. reflexes 1/3 patella adn achilles B Sensation WNL to gross light touch in B LE. HS max tight at -35 90/90 test. coordination to reciprocal toe and heel tap is good. heel to valenzuela is good. AROM LE WFL. Balance/Special Test Scores Functional Gait Assessment Score: 27 % Disability: 10.0000 CATSIB Score (Max score 120 seconds): 98 Lower Extremity Functional Score: 48 TUG Test Time Seconds: 8 30 Second Chair Rise Test Seconds: 11 Goals Goal 1:: 29/30 FGA to minimize any fall risk Goal Time Frame: 4-6 Weeks Goal 2:: 15 on 30 sec sit to stand to normalize funcitonal strength Goal Time Frame: 4-6 Weeks Goal 3:: Pt feel 100% back to normal strength and balance Goal Time Frame: 4-6 Weeks Goal 4:: I appropr HEP for future health Goal Time Frame: 4-6 Weeks Rehabilitation Potential Physical Therapy Diagnosis: weakness and imbalance limiting function at home. Rehabilitation Potential: Good Anticipated Interventions Patient/Client Instruction: Educate patient on: Condition For the Purpose of:: To decrease pain, To decrease swelling/inflammation, To improve nutrient delivery to tissue, To improve muscle performance and motor function and To increase tolerance to activity/condition/position Therapeutic Exercise to Include: Strength training and Balance training For the Purpose of:: To improve nutrient delivery to tissue, To improve muscle performance and motor function and To increase tolerance to activity/condition/position Text: Thank you for the opportunity to evaluate your patient. For Medicare and Medicare HMO plans, please review the plan of care and approve it. It will need to be FAXED BACK to us at [phone] for Medicare purposes. For Medicare only, by signing this I certify the plan of care. Please let me know if there are questions or concerns regarding this plan of care. Physician Signature: Date:
--- NOTE | 2023-06-22 06:35 | HP.OTEVAL ---
Patient's Visit Information Visit Information Visit Information: ALFRED DE PAZ is a 68 year old F, referred to Occupational Therapy by Dr. Romeo Shankar MD, with a diagnosis of Hemorrhagic stoke. Date of Evaluation: 06/21/23 Occupational Therapist: SYLVIA Arizmendi/Bennie, CHT Subjective Subjective: This 68 year old female was seen for OT eval with dx of stroke. Pt states 2023 her family thought she was not being herself and they told her she needed to go to ER. ER noticed brain bleed and sent pt to [facility]. Pt states she was there for 2 nights- and returned home on 06/03/23. pt states she has right hand tingling. pt states she just feels off and slow as well as no endurance pt states family is not really letting her get back to doing some of the house hold tasks she was doing prior to her stroke. ADLs Dressing: Socks and Shoes Comments: left the burner on (gas stove) distracted and burner was on Comments: dtr hired cleaning lady Comments: pt lives in a two story home with two entry without handrails. pt states bedroom and bathroom and laundry is on first floor. pt states her dtr and her family is living in her basement ( three grandchildren ages 5,7&10) pt states basement is storage. ( 12 steps to get to basement for freezer) pt states she did typically go down/up one step at a time. pt states her bathroom is a tub shower combination- no grab bars has shower chair- long handle shower head. pt states her son in law does the cooking pt states she was IND with grocery shopping and dtr would be with her Driving IND pt states cleaning and laundry she would do more of it then other family- pt states she lives on a farm and they have an event center- wants to help with the gardening pt states she notices she is lacking stamina to perform her daily tasks ROM ROM Comments: pt demo full ROM -noted slower motor movement with right Strength Shoulder: right 15# left 19# Elbow: biceps right 24# left 29# triceps 26# left 29# Supercalender Operator Helper: right 35# left 50# Lateral Pinch: right 16# left 18# Tripod Pinch: right 8# left 14# Strength Comments: pt demo with weakness of right UE Sensation Sensation Comments: right UE tingling since stroke -varies in intensity Nine Hole Peg Right: 19.22 Left: 23.75 Quick DASH-Disab of Arm,Shoulder& Hand Quick DASH Score: 32.5000 Goals Goal:: pt will demo a increase in right UE fet 2 resistance testing by 8# or greater to increase pts ind. with ADLs and IADls by d/c pt will demo a increase in right redeye gunner strength by 20# to increase pts ind.with ADLS by d.c Goal:: pt will demo increase RUE motor control to accurately place a variety of weighted (2#-3#-5#) objects at different heights to simulate putting dishes/groceries away without dropping/or hitting items on shelving by d.c Goal:: pt will demo a increase in ind with FMS by a decrease in time on9-hole peg test by 8sec. by d/c Rehabilitation General Assessment: pt demo with right side weakness and a decrease motor control of right UE that limits pt in returning to her PLOF. Pt would benefit from skilled OT services 2x week for 4-6weeks to increase pts strength and UB coordination to return to her PLOF. Pt demo understanding and agrees to POC. Cognitive concerns will be addressed by speech therapy. Rehabilitation Potential: Good Anticipated Interventions Anticipated Interventions: A/AAROM/PROM, Strengthening, Sensory Retraining, Fine Motor Coord/Wallace, Neuro Reeducation, Education re assistive Equipment, Education re Diagnosis and Home Program Visit Plan Frequency: 2-3x /Week Duration: 6 Weeks TEXT: Thank you for the opportunity to evaluate your patient. For Medicare and Medicare HMO plans, please review the plan of care and approve it. It will need to be FAXED BACK to us at [phone] for Medicare purposes. Please let me know if there are questions or concerns regarding this plan of care. Physician Signature: Date:
--- NOTE | 2023-06-22 11:39 | HP.SP.EVAL ---
Visit History Visit Info Date of Eval: 06/21/23 Visit: 1 Patient's Approved Number of Visits: 10 Insurance Date Limit: 05/06/24 Child Support Investigator: HILDA Mcmahon Attending Doctor: Referring Doctor: Reason for Referral: STROKE/RX HERE Previous speech therapy: No Other Relevant Medical History/Diagnoses/Surgery: KAIA DE PAZ is a 68 year old female who presents to [facility] Speech Therapy following a dx of hemorrhagic stroke about 7 weeks ago. Prior to her stroke, Pt reports her family describes her as being in a fog, not being able to read a clock, and after having tea with her neighbor the neighbor called her daughter and stated that she felt Kaia wasn't herself. Some things that have been happening at home since being home include = losing her phone, reading books, forgetting pin for debit card, and turning the range on the stove to make a hot dog and then forgot to put the hot dog in and then asked her if he ate it. 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 At this time, their family owns an event center in [place], but Kaia's daughter is taking over operations for that. Smoking Status: Never smoker Diagnosis Diagnosis: Mild Cognitive Impairment Pain Is pain an issue with your current prescribed condition?: No Personal Preferred language: Belarusian Patient Allergies Allergies Allergies: Allergies Penicillins Allergy (Mild, Verified 05/30/23 12:12) Rash CLQT CLQT CLQT Administered: Yes CLQT: Cognitive Linguistic Quick Test (CLQT) is a criterion - referenced assessment designed for adults between the ages of 18 and 89 with known or suspected neurological dysfuntions. The CLQT is to assess strength and weaknesses in five cognitive domains. Severity ratings are within normal limits, mild, moderate, severe deficits. The subtests are as follows: Date: 06/21/23 Attention Attention: Moderate Memory Memory: WNL Executive Functions Executive Functions: WNL Language Language: WNL Visuospatial Skills Visuospatial Skills: Mild Composite Severity Rating Composite Severity Rating: Mild Clock Drawing Severity Rating Clock Drawing Severity Rating: WNL CLQT Comments Cognitive Domain Scores: -: ? Personal Facts (memory and language ability): 12/12 (MEETS CRITERION CUT OFF) ? Symbol Cancellation (nonlinguistic task of visual attention and perception, integrity of the upper/lower quadrants of the left/right visual omalley): 0/12 (BELOW CRITERION CUT OFF) DURING THIS TASK, PT CORRECTLY CROSSED OUT ALL OF THE TARGET SYMBOLS, HOWEVER ALSO CROSSED OFF ALL 12 OF AN ADDITIONAL SYMBOL. AFTER COMPLETING THE TASK, PT LOOKED AT HER RESPONSES FOR A FEW MINUTES AND STATED, I THINK THESE ONES ARE ACTUALLY DIFFERENT. ? Confrontation Naming (aphasia, perseveration, verbosity): 02/13 (MEETS CRITERION CUT OFF) ? Clock Drawing (screening of all cognitive domains): (MEETS CRITERION CUT OFF) ? Story Retelling (memory and comprehension, arousal, attention, storage capacity, narrative skills): 10/14 (MEETS CRITERION CUT OFF) ? Symbol Trails (nonlinguistic task to assess planning, self-monitoring, working memory, and visual attention, and impulsivity): 01/14 (MEETS CRITERION CUT OFF) ? Generative Naming (word retrieval skills, perseveration): 09/12 (MEETS CRITERION CUT OFF) ? Design Memory (nonlinguistic task to assess visual discrimination & analysis, attention, and visual memory, impulsivity, perseveration): 10/10 (MEETS CRITERION CUT OFF) ? Mazes (planning, mental flexibility, self-monitoring, visual discrimination, and impulsivity): 12/12 (MEETS CRITERION CUT OFF) ? Design Generation (nonlinguistic task of creativity and mental flexibility): 12/17 (MEETS CRITERION CUT OFF) Severity Rating Domain Scores: Attention = 91/215 (MODERATE); Memory = 157/185 (WNL; however at the lower end of the cut off with range being 185-155); Executive Functioning = 30/40 (WNL); Language = 29/37 (WNL; however at the lower end of the cut off with range being 37-29); Visuospatial Skills = 74/105 (MILD); Clock Drawing = (WNL). Reference: Neuro-QoL instrument Radiation Oncology Patient Plan Plan Plan: Will recommend Pt for weekly outpatient speech therapy to address mild cognitive impairment characterized by deficits in short-term memory, word retrieval, executive functioning, attention, and problem solving/reasoning. Pt would benefit from training in compensatory strategies for recall and word retrieval, as well as cognitive training to improve cognitive functioning. Without skilled ST services, the Pt is at risk for decreased independence completing daily living tasks. Recommendations Treatment Warranted: Yes Treatment Warranted: Cognition Progress Prognosis: Excellent Frequency Frequency: 1x/Week Duration: 2 Months Goals that are Established Determination:: Goals will be added/modified as deemed necessary and appropriate. Therapy will be discontinued when results of re-evaluation indicate therapy is no longer needed or lack of progress has been documented. Goal #1-5 Goal #1: Kaia will complete basic to mod complex sustained, alternating, divided attention tasks with 80% acc given min cuing across 3 measured opportunities. Goal #2: Kaia will complete basic immediate, short-term, and working memory tasks with 80% acc when using memory strategies with min cues across 3 measured opportunities. Goal #3: Kaia independently will complete complex problem solving, reasoning, and executive function tasks including but not limited to functional ADL (e.g., managing finances, safety awareness, paying bills, medication management, meal planning, using cellphone) with 2 or less verbal or logical cues throughout the duration of the task across 3 measured opportunities. Goal #4: Kaia will independently demonstrate use of word finding strategies to participate in complex conversation tasks in 2 out of 3 word finding occurrences across 3 measured opportunities. Education Patient has Indicated that the Following Identified Educational Needs: None The Patient has indicated that they have no educational or learning abilities that may effect their care.: Yes Patient Instruction Patient Education: Diagnosis, Treatment Plan and Goals Person Taught: Patient Teaching Method: Discussion and Demonstration Response to teaching: Return demonstration and Verbalize understanding
--- NOTE | 2023-07-17 10:37 | HP.PTDCSUM ---
Discharge Summary D/C summary: It has been my pleasure to treat ALFRED DE PAZ referred by Dr. Romeo Shankar MD, with the diagnosis of Hemmorhage stroke for a total of 5 visit(s). Discharge Date: 07/17/23 Please see the following information for a summary of their discharge status. Subjective Subjective: Sore with exercises last time but seemed OK after two days. I am doing well. Much improved. Was totally out of shape and exercises are helping. No problems sleeping. 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 May seek her pain management doctor. Hobbies: enjoys working outside [employer] and [employer]. Slightly worried about bending or getting down on hands and knees. Basic ADLs going well. Overall Improvement % Improvement: 90 Objective Objective/Function: +3 30 sec STS FGA + 3 Balance much better and activitiy getting back to normal. pt has done all exercises at home adn will continue that now. Goals Goal 1:: FGA to minimize any fall risk Goal Progress: Goal Met Goal 2:: 15 on 30 sec sit to stand to normalize funcitonal strength Goal Progress: 14(+3) Goal 3:: Pt feel 100% back to normal strength and balance Goal Progress: 90% Goal 4:: I appropr HEP for future health Goal Progress: Goal Met Plan Plan: d/c, f/u doctor in October, Neuro next week. D/C Information d/c sentence: If there are questions or concerns regarding this patient's physical therapy, please feel free to call me at [phone]. Thank you for the referral of this patient. Sincerely, Salomón Johnson, DPT, OCS, CSCS Balance/Gait/Functional tests Balance/Special Test Scores Functional Gait Assessment Score: 30 % Disability: 0 CATSIB Score (Max score 120 seconds): 98 Lower Extremity Functional Score: 66 TUG Test Time Seconds: 8 Tug Test: <10 sec.=free mobile 30 Second Chair Rise Test Seconds: 14 Improvement % Improvement: 90
--- NOTE | 2023-09-04 10:10 | HP.SPREEV_ITS ---
Visit History Visit Info Date of Eval: 06/21/23 Visit: 1 Patient's Approved Number of Visits: 10 Insurance Date Limit: 05/06/24 Marine Surveyor: HILDA Mcmahon Attending Doctor: Referring Doctor: Reason for Referral: STROKE/RX HERE Previous speech therapy: No Other Relevant Medical History/Diagnoses/Surgery: KAIA DE PAZ is a 68 year old female who presents to [facility] Speech Therapy following a dx of hemorrhagic stroke about 7 weeks ago. Prior to her stroke, Pt reports her family describes her as being in a fog, not being able to read a clock, and after having tea with her neighbor the neighbor called her daughter and stated that she felt Kaia wasn't herself. Some things that have been happening at home since being home include = losing her phone, reading books, forgetting pin for debit card, and turning the range on the stove to make a hot dog and then forgot to put the hot dog in and then asked her if he ate it. 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 Smoking Status: Never smoker Diagnosis Diagnosis: Mild Cognitive Impairment Pain Is pain an issue with your current prescribed condition?: No Personal Preferred language: Kazakh Patient Allergies Allergies Allergies: Allergies Penicillins Allergy (Mild, Verified 05/30/23 12:12) Rash Previous/Current Goals Goals 1-5 Previous Goal #1: Kaia will complete basic to mod complex sustained, alternating, divided attention tasks with 80% acc given min cuing across 3 measured opportunities. Goal 1 Status: GOAL NOT YET TARGETED D/T FOCUS ON SPOON THEORY AND COGNITIVE LOAD. PATIENT IS VERBOSE IN SESSIONS HOWEVER SUSPECT THIS IS HER BASELINE. SHE HAS A SOCIAL, KIND, FRIENDLY DEMEANOR. WILL DISCONTINUE GOAL AT THIS TIME. Previous Goal #2: Kaia will complete basic immediate, short-term, and working memory tasks with 80% acc when using memory strategies with min cues across 3 measured opportunities. Goal 2 Status: GOAL NOT YET TARGETED D/T FOCUS ON SPOON THEORY AND COGNITIVE LOAD. PATIENT REPORTING SHE WOULD LIKE TO KEEP THIS GOAL FOR NEXT POC. Previous Goal #3: Kaia independently will complete complex problem solving, reasoning, and executive function tasks including but not limited to functional ADL (e.g., managing finances, safety awareness, paying bills, medication management, meal planning, using cellphone) with 2 or less verbal or logical cues throughout the duration of the task across 3 measured opportunities. Goal 3 Status: PROGRESSING: Spent many weeks discussing and educating on the 12 Spoon Theory. Explained how the theory describes quantifying cognitive load and being able to assign different activities throughout the day between 1-4 spoons. Handouts provided on examples. Also discussed which activities throughout her day would require a # of spoons. Kaia finding 3 activities for each of the 1-3 columns but had not yet found an activity that would elicit 4 spoons. Kaia showing her documentation of keeping track of activities and how many spoons she felt each activity required. Reviewed how most of her days were beyond 12 spoons with no documentation of relaxation activities and gaining spoons back. Created a mock schedule that reflected her day today with modifications made in the middle of the day after therapy where she would benefit from a break before going home and organizing her room. Printed out Pt a schedule where she can make a plan for her day before it starts with items that she prioritizes. ST assisting in creating a medication management chart that she can check off when she takes her medicines since she often forgets. Previous Goal #4: Kaia will independently demonstrate use of word finding strategies to participate in complex conversation tasks in 2 out of 3 word finding occurrences across 3 measured opportunities. Goal 4 Status: PROGRESSING: Kaia showing ST her semantic feature analysis that she completed with 83% acc independently and benefited from mod semantic cues to improve to 100%. During conversation, Kaia with 3 instances of word finding errors and she benefited from min semantic cues to find the word she was looking for. For a 52 min. conversation, Kaia had only 3 word finding moments where she used strategies in 2/3 occurrences to find the words, levothyroxine and hearing aid. She used first letter and delay. This occurred over 2 measured opportunities. CLQT CLQT CLQT Administered: Yes CLQT: Cognitive Linguistic Quick Test (CLQT) is a criterion - referenced assessment designed for adults between the ages of 18 and 89 with known or suspected neurological dysfuntions. The CLQT is to assess strength and weaknesses in five cognitive domains. Severity ratings are within normal limits, mild, moderate, severe deficits. The subtests are as follows: Date: 06/21/23 Attention Attention: Moderate Memory Memory: WNL Executive Functions Executive Functions: WNL Language Language: WNL Visuospatial Skills Visuospatial Skills: Mild Composite Severity Rating Composite Severity Rating: Mild Clock Drawing Severity Rating Clock Drawing Severity Rating: WNL CLQT Comments Cognitive Domain Scores: -: ? Personal Facts (memory and language ability): 12/12 (MEETS CRITERION CUT OFF) ? Symbol Cancellation (nonlinguistic task of visual attention and perception, integrity of the upper/lower quadrants of the left/right visual omalley): 0/12 (BELOW CRITERION CUT OFF) DURING THIS TASK, PT CORRECTLY CROSSED OUT ALL OF THE TARGET SYMBOLS, HOWEVER ALSO CROSSED OFF ALL 12 OF AN ADDITIONAL SYMBOL. AFTER COMPLETING THE TASK, PT LOOKED AT HER RESPONSES FOR A FEW MINUTES AND STATED, I THINK THESE ONES ARE ACTUALLY DIFFERENT. ? Confrontation Naming (aphasia, perseveration, verbosity): 02/13 (MEETS CRITERION CUT OFF) ? Clock Drawing (screening of all cognitive domains): (MEETS CRITERION CUT OFF) ? Story Retelling (memory and comprehension, arousal, attention, storage capacity, narrative skills): 10/14 (MEETS CRITERION CUT OFF) ? Symbol Trails (nonlinguistic task to assess planning, self-monitoring, working memory, and visual attention, and impulsivity): 01/14 (MEETS CRITERION CUT OFF) ? Generative Naming (word retrieval skills, perseveration): 09/12 (MEETS CRITERION CUT OFF) ? Design Memory (nonlinguistic task to assess visual discrimination & analysis, attention, and visual memory, impulsivity, perseveration): 10/10 (MEETS CRITERION CUT OFF) ? Mazes (planning, mental flexibility, self-monitoring, visual discrimination, and impulsivity): 12/12 (MEETS CRITERION CUT OFF) ? Design Generation (nonlinguistic task of creativity and mental flexibility): 12/17 (MEETS CRITERION CUT OFF) Severity Rating Domain Scores: Attention = 91/215 (MODERATE); Memory = 157/185 (WNL; however at the lower end of the cut off with range being 185-155); Executive Functioning = 30/40 (WNL); Language = 29/37 (WNL; however at the lower end of the cut off with range being 37-29); Visuospatial Skills = 74/105 (MILD); Clock Drawing = 13/13 (WNL). Reference: Neuro-QoL instrument Radiation Oncology Patient Plan Plan Plan: Will recommend Pt for weekly outpatient speech therapy to address mild cognitive impairment characterized by deficits in short-term memory, word retrieval, executive functioning, and problem solving/reasoning. Pt would benefit from training in compensatory strategies for recall and word retrieval, as well as cognitive training to improve cognitive functioning. Without skilled ST services, the Pt is at risk for decreased independence completing daily living tasks. Recommendations Treatment Warranted: Yes Treatment Warranted: Cognition Progress Prognosis: Excellent Frequency Frequency: 1x/Week Duration: 2 Months Goals that are Established Determination:: Goals will be added/modified as deemed necessary and appropriate. Therapy will be discontinued when results of re-evaluation indicate therapy is no longer needed or lack of progress has been documented. Goal #1-5 Goal #1: Kaia will complete basic immediate, short-term, and working memory tasks with 80% acc when using memory strategies with min cues across 3 measured opportunities. Goal #2: Kaia independently will complete complex problem solving, reasoning, and executive function tasks including but not limited to functional ADL (e.g., managing finances, safety awareness, paying bills, medication management, meal planning, using cellphone) with 2 or less verbal or logical cues throughout the duration of the task across 3 measured opportunities. Goal #3: Kaia will independently demonstrate use of word finding strategies to participate in complex conversation tasks in 2 out of 3 word finding occurrences across 3 measured opportunities. Goal #4: Kaia will independently demonstrate use of word finding strategies to participate in complex conversation tasks in 2 out of 3 word finding occurrences across 3 measured opportunities. Education Patient has Indicated that the Following Identified Educational Needs: None The Patient has indicated that they have no educational or learning abilities th at may effect their care.: Yes Patient Instruction Patient Education: Diagnosis, Treatment Plan and Goals Person Taught: Patient Teaching Method: Discussion and Demonstration Response to teaching: Return demonstration and Verbalize understanding
--- NOTE | 2023-12-14 09:40 | HP.OT.NRP ---
Patient Information Patient Information: ALFRED DE PAZ was seen in my office for initial evaluation on 06/21/23. The following Plan of Care was established for this patient: POC Established Initial Frequency: 2-3x /Week Initial Duration: 6 Weeks Plan: Continue POC: (Insurance-Limit-$2330) 6 weeks (2-3x week) Anticipated Interventions Anticipated Interventions: A/AAROM/PROM, Strengthening, Sensory Retraining, Fine Motor Coord/Wallace, Neuro Reeducation, Education re assistive Equipment, Education re Diagnosis and Home Program Last Seen Last Seen: This patient was last seen in our office 07/17/23. Pertinent comments regarding their Occupational therapy will appear below: pt was last seen on 07/17/23 and at this time pt is d/c due to time lapse in services. At this point I will be discontinuing this patient from occupational therapy. I would be happy to see this patient again in the future if found appropriate by the physician. Thank you! Mariely Alonso, OTR/L, CHT
== END 2023-12-25 19:00 | disposition home or self-care (01) ==
LOC: SP 09:30
PROVIDERS: PCP Family Medicine Geriatric Medicine; Referring Provider Family Medicine Geriatric Medicine; Visit Provider Family Medicine Geriatric Medicine
DX: I61.9 Nontraumatic intracerebral hemorrhage, unspecified (principal); I69.328 Other speech and language deficits following cerebral infarction
CPT/HCPCS: 92507; 97110; 97129; 97130; 97162; 97164; 97166; 97530

== ENCOUNTER 2023-12-31 09:04 | Outpatient (RCR) | payer MEDICARE, BC, SELFPAY ==
--- NOTE | 2024-04-16 10:52 | HP.SP.DC_ITS ---
ST Discharge Summary Discharged: Discharge: ALFRED DE PAZ is a 68 year old female who was seen for initial cognitive-linguistic evaluation at [facility] on 06/21/23 s/p hemorrhagic stroke. Pt attended 20 additional consecutive sessions following initial evaluation to target attention, word retrieval, divergent naming, problem solving/reasoning, memory, and executive functioning. Following re-evaluation of Pt?s current level of cognitive function, progress reports, self-report, and caregiver report, Pt deemed appropriate for d/c from speech therapy at this time. Pt provided w/home carry over activities to continue targeting complex executive functioning tasks. Pt discharged from speech therapy caseload on this date, 04/16/2024, following no return to therapy after being on hold since last appointment in December. Thank you for allowing me to participate in the care of your Pt. Will reevaluate at Pt?s request following script from physician.
== END 2023-12-31 19:00 | disposition home or self-care (01) ==
LOC: SP 09:04
PROVIDERS: PCP Family Medicine Geriatric Medicine; Referring Provider Family Medicine Geriatric Medicine; Visit Provider Family Medicine Geriatric Medicine
DX: I69.314 Frontal lobe and executive function deficit following cerebral infarction (principal)
CPT/HCPCS: 92507

== ENCOUNTER → 2024-01-04 | Outpatient (CLI) | payer MEDICARE, BC, SELFPAY ==
[2024-01-04 09:39] LABS: Absolute Lymphocyte Count 1.28 X10^3/uL (0.83-4.51); Absolute Neutrophil Count 3.1 X10^3/uL (2.0-7.7); Basophil# 0.02 X10^3/uL; Basophil% 0.4 % (0-1); Eosinophil# 0.11 X10^3/uL; Eosinophils% 2.2 % (0-5); Hematocrit 41.5 % (37-47); Hemoglobin 13.5 g/dL (12.0-15.0); Lymphocyte # 1.28 X10^3/ul (0.83-4.51); Lymphocyte % 26.2 % (19-41); Mean Corp Hgb Conc 32.5 g/dL (32-36); Mean Corpuscular Hgb 29.3 pg (27.0-32.0); Mean Platelet Vol. 10.2 fl (6.2-12.0); Monocyte# 0.38 X10^3/uL; Monocyte% 7.8 % (0-10); NRBC Flagged by Analyzer 0 % (0-5); Neutrophil # 3.09 X10^3/uL (2.7-7.7); Neutrophil % 63.2 % (47-70); Platelet Count 167 K/mm3 (150-450); RBC Distribution Width CV 14.7 % (11.6-14.6); RBC Distribution Width SD 48.4 fl (35.1-43.9); Red Blood Count 4.61 M/mm3 (4.2-5.4); White Blood Count 4.9 K/mm3 (4.4-11.0)
[2024-01-04 10:33] LABS: AST(SGOT) 22 U/L (15-37); Alanine Aminotransfer ALT/SGPT 33 U/L (13-56); Albumin, Serum 3.7 g/dL (3.2-5.0); Alkaline Phosphatase 82 U/L (45-117); Anion Gap 6 (5-15); BUN 16 mg/dL (7-18); Calcium,Total 9.6 mg/dL (8.5-10.1); Chloride 110 mmol/L (98-107); Creatinine, Serum 0.94 mg/dL (0.55-1.02); EST Glomerular Filtration Rate 63 mL/min (>60); Est Glom Filt Rate - Afr Amer 76 mL/min (>60); Globulin 3.8 g/dL (2.2-4.2); Glucose 105 mg/dL (74-106); Protein, Total 7.5 g/dL (6.4-8.2); Sodium Level 141 mmol/L (136-145)
[2024-01-04 11:51] LABS: Vitamin D,25 Hydroxy 26.2 ng/mL
== END | disposition home or self-care (01) ==
LOC: POLAB3 09:28
PROVIDERS: PCP Family Medicine Geriatric Medicine; Visit Provider Family Medicine Geriatric Medicine
DX: R53.83 Other fatigue (principal); E55.9 Vitamin D deficiency, unspecified
CPT/HCPCS: 36415; 80053; 82306; 84443; 85025

== ENCOUNTER → 2024-06-05 | Outpatient (CLI) | payer MEDICARE, BC, SELFPAY ==
[2024-06-05 10:47] LABS: Absolute Lymphocyte Count 1.41 X10^3/uL (0.83-4.51); Absolute Neutrophil Count 2.9 X10^3/uL (2.0-7.7); Basophil# 0.01 X10^3/uL; Basophil% 0.2 % (0-1); Eosinophil# 0.08 X10^3/uL; Eosinophils% 1.7 % (0-5); Hematocrit 40.8 % (37-47); Hemoglobin 13.3 g/dL (12.0-15.0); Lymphocyte # 1.41 X10^3/ul (0.83-4.51); Mean Corp Hgb Conc 32.6 g/dL (32-36); Mean Corpuscular Volume 89.1 fL (81-99); Mean Platelet Vol. 10.3 fl (6.2-12.0); Monocyte# 0.34 X10^3/uL; Monocyte% 7.2 % (0-10); NRBC Flagged by Analyzer 0 % (0-5); Neutrophil # 2.86 X10^3/uL (2.7-7.7); Neutrophil % 60.9 % (47-70); Platelet Count 223 K/mm3 (150-450); RBC Distribution Width SD 45.4 fl (35.1-43.9); Red Blood Count 4.58 M/mm3 (4.2-5.4); White Blood Count 4.7 K/mm3 (4.4-11.0)
[2024-06-05 11:32] LABS: Vitamin D,25 Hydroxy 34.4 ng/mL
[2024-06-05 11:50] LABS: AST(SGOT) 25 U/L (15-37); Alanine Aminotransfer ALT/SGPT 40 U/L (13-56); Albumin, Serum 3.9 g/dL (3.2-5.0); Alkaline Phosphatase 65 U/L (45-117); Anion Gap 8 (5-15); BUN 14 mg/dL (7-18); BUN/Creat Ratio 15.2 RATIO (10-20); Calcium,Total 9.2 mg/dL (8.5-10.1); Chloride 110 mmol/L (98-107); Creatinine, Serum 0.92 mg/dL (0.55-1.02); EST Glomerular Filtration Rate 65 mL/min (>60); Est Glom Filt Rate - Afr Amer 78 mL/min (>60); Globulin 3.9 g/dL (2.2-4.2); Glucose 104 mg/dL (74-106); Potassium 3.7 mmol/L (3.5-5.1); Protein, Total 7.8 g/dL (6.4-8.2); Sodium Level 143 mmol/L (136-145)
== END | disposition home or self-care (01) ==
PROVIDERS: PCP Family Medicine Geriatric Medicine; Visit Provider Family Medicine Geriatric Medicine
DX: R53.83 Other fatigue (principal); E55.9 Vitamin D deficiency, unspecified
CPT/HCPCS: 36415; 80053; 82306; 84443; 85025

== ENCOUNTER → 2024-07-22 | Outpatient (CLI) | payer MEDICARE, BC, SELFPAY ==
--- NOTE | 2024-07-22 15:35 | RAD_ITS ---
EXAM: XR Lumbosacral Spine, 2 or 3 Views CLINICAL INDICATION: LOW BACK PAIN TECHNIQUE: Frontal and lateral views of the lumbar spine and sacrum. COMPARISON: No relevant prior studies available. FINDINGS: VERTEBRAE: Multilevel endplate degenerative changes of the lumbar spine from L1-S1. Moderate facet arthropathy of L4-S1. Grade 1 anterior spondylolisthesis of L4 over L5. No acute fracture. SACRUM/COCCYX: Unremarkable as visualized. No acute fracture. DISC SPACES: See above. SOFT TISSUES: Unremarkable. RAD/L/S Spine Min 4 Views IMPRESSION: Degenerative changes as above. [facility]
--- NOTE | 2024-07-22 16:15 | CT_ITS ---
PROCEDURE: ABDOMEN/PELVIS WITHOUT CONT 07/22/2024 REASON FOR EXAM: KIDNEY STONE TECHNIQUE: CT abdomen and pelvis was performed without IV contrast. Multiplanar reformats were generated. PATIENT PREPARATION: Per protocol ORAL CONTRAST TYPE: None. CONTRAST: None. One or more dose reduction techniques were used (e.g., Automated exposure control, adjustment of the mA and/or kV according to patient size, use of iterative reconstruction technique. RADIATION DOSE SUMMARY: CTDlvol: 13.15 mGy DLP: 680.0 mGycm COMPARISON: 01/28/2022; note that only the images are available, the report is not available at the time of dictation. FINDINGS: Note that evaluation of the abdominopelvic viscera, vasculature, and remaining soft tissues is limited in the absence of IV contrast. Lung bases: Small atelectasis/scarring. Liver: Small LEFT lobe hypodensity too small to characterize likely a cyst or hemangioma in the absence of known malignancy, unchanged. Spleen: Granulomas. Gallbladder: Unremarkable. Pancreas: Unremarkable. Adrenals: Unremarkable. Kidneys: No hydronephrosis or ureteral calculus identified. Grossly similar presumed pelvic phleboliths in the absence of hydronephrosis and hydroureter. Bowel: Diverticulosis.. Normal caliber appendix. Lymph nodes: Unremarkable. Vasculature: Mild calcific atherosclerosis. Peritoneum: Unremarkable. Bladder: Underdistended and suboptimally evaluated, grossly unremarkable. Reproductive Organs: Unremarkable. Body Wall: Unremarkable. Bones: Suspect demineralization. Multilevel spondylosis.. CT/Abdomen/Pelvis without Cont IMPRESSION: 1. No acute noncontrast findings. No hydronephrosis or ureteral calculus ident ified. 2. Additional description as above. Reading Location: [id number]
== END | disposition home or self-care (01) ==
PROVIDERS: PCP Family Medicine Geriatric Medicine; Referring Provider Family Medicine Geriatric Medicine; Visit Provider Family Medicine Geriatric Medicine
DX: M54.50 Low back pain, unspecified (principal); N20.0 Calculus of kidney
CPT/HCPCS: 72110; 74176

== ENCOUNTER → 2024-07-22 | Outpatient (CLI) | payer MEDICARE, BC, SELFPAY | END | disposition home or self-care (01) | PROVIDERS: PCP Family Medicine Geriatric Medicine; Visit Provider Family Medicine Geriatric Medicine | DX: N39.0 Urinary tract infection, site not specified (principal) | CPT/HCPCS: 87086; 87088 ==

== ENCOUNTER → 2024-08-18 | Outpatient (CLI) | payer MEDICARE, BC, SELFPAY ==
--- NOTE | 2024-08-18 09:30 | MRI_ITS ---
EXAM: MRI LUMBAR SPINE. CLINICAL HISTORY: Low back pain radiating to the left lower extremity. COMPARISON: Radiographs on 07/22/2024. TECHNIQUE: Axial and sagittal T1 and T2 weighted images were obtained. Fat suppressed images were also obtained. FINDINGS: There is normal signal intensity from the visualized bone marrow without evidence of replacement or acute fracture. The conus is unremarkable. Normal lumbar lordosis. The vertebral alignment is within normal limits. Evaluation of the individual levels revealed the following: L5-S1: There is mild diffuse disc bulge. Superimposed broad-based right paracentral disc protrusion measuring 3.2 mm. Bilateral facet joint arthropathy and ligamentum flavum hypertrophy. The spinal canal is not narrowed. There is minimal bilateral neural foramina narrowing. L4-5: There is grade 1 anterolisthesis measuring 5.7 mm. Moderate diffuse disc bulge. Bilateral facet joint arthropathy and ligamentum flavum hypertrophy, more prominent on the right side. The spinal canal is mildly narrowed. There is mild bilateral neural foramina narrowing. L3-4: There is mild diffuse disc bulge. Superimposed central/right paracentral disc extrusion measuring 4.2 mm. Bilateral facet joint arthropathy and ligamentum flavum hypertrophy. The spinal canal is not narrowed. There is mild bilateral neural foraminal narrowing. L2-3: There is mild diffuse disc bulge. Bilateral facet joint arthropathy and ligamentum flavum hypertrophy. The spinal canal is not narrowed. There is minimal bilateral neural foraminal narrowing. L1-2: There is mild diffuse disc bulge. The spinal canal is not narrowed. There is no evidence of neural foramina narrowing. T12-L1: There is mild diffuse disc bulge. The spinal canal is not narrowed. Minimal bilateral neural foraminal narrowing. Normal visualized paraspinous soft tissue structures. MRI/Spine Lumbar (Routine) IMPRESSION: Spondylosis. Degenerative disc disease. Reading [facility]
== END | disposition home or self-care (01) ==
LOC: MRI 09:38
PROVIDERS: PCP Family Medicine Geriatric Medicine; Referring Provider Family Medicine Geriatric Medicine; Visit Provider Family Medicine Geriatric Medicine
DX: M62.830 Muscle spasm of back (principal); M51.9 Unspecified thoracic, thoracolumbar and lumbosacral intervertebral disc disorder
CPT/HCPCS: 72148

== ENCOUNTER 2024-11-28 12:41 | Emergency (ER) | payer MEDICARE, BC, SELFPAY ==
[2024-11-28 12:42] VITALS: BP 143/70; PULSE 54; RESP 18; TEMP 37; O2SAT 99; BMI 33.0
--- NOTE | 2024-11-28 13:00 | RAD_ITS ---
PROCEDURE: KNEE 4 OR MORE VIEWS 11/28/2024 REASON FOR EXAM: INJURY TECHNIQUE: KNEE 4 OR MORE VIEWS COMPARISON: None FINDINGS: Bones: No fracture. Joints: Minimal joint space narrowing patellofemoral joint at the lateral facet. Minimal spurring superior pole patella. Effusion: None Soft tissues: Small focus of calcification proximal portion lateral collateral ligament. RAD/Knee 4 or More Views IMPRESSION: 1. No fracture 2. Very mild degenerative change patellofemoral joint. 3. Calcification proximal portion lateral collateral ligament likely the seque lae of old injury. Reading Location: [id number]
--- NOTE | 2024-11-28 13:00 | RAD_ITS ---
EXAM: Right tibia and fibula. CLINICAL HISTORY: Pain. COMPARISON: None. TECHNIQUE: Two views. FINDINGS: No evidence of acute fracture or dislocation. The soft tissues are unremarkable. RAD/Tibia & Fibula 2 Views IMPRESSION: No acute osseous abnormalities. Reading Location: [id number]
== END 2024-11-28 14:41 | disposition left against medical advice (07) ==
LOC: ED 14:50
PROVIDERS: PCP Family Medicine Geriatric Medicine
DX: S89.80XA Other specified injuries of unspecified lower leg, initial encounter (principal)
CPT/HCPCS: 73564; 73590

== ENCOUNTER → 2024-12-02 | Outpatient (CLI) | payer MEDICARE, BC, SELFPAY ==
[2024-12-02 11:10] LABS: Hematocrit 41.6 % (37-47); Hemoglobin 13.5 g/dL (12.0-15.0); Immature Granulocytes Count 0.010 X10^3/uL (0.0-0.0); Mean Corp Hgb Conc 32.5 g/dL (32-36); Mean Corpuscular Volume 91.2 fL (81-99); Mean Platelet Vol. 10.5 fl (6.2-12.0); NRBC Flagged by Analyzer 0 % (0-5); Platelet Count 202 K/mm3 (150-450); RBC Distribution Width CV 14.5 % (11.6-14.6); RBC Distribution Width SD 48.7 fl (35.1-43.9); Red Blood Count 4.56 M/mm3 (4.2-5.4); White Blood Count 5.3 K/mm3 (4.4-11.0)
[2024-12-02 12:23] LABS: AST(SGOT) 36 U/L (<=31); Alanine Aminotransfer ALT/SGPT 30 U/L (<=34); Albumin, Serum 4.4 g/dL (3.4-4.8); Alkaline Phosphatase 74 U/L (35-104); Anion Gap 15 (5-15); BUN 13 mg/dL (4-19); BUN/Creat Ratio 15.2 RATIO (10-20); Calcium,Total 9.6 mg/dL (7.6-11.0); Carbon Dioxide 21.0 mmol/L (21.0-32.0); Chloride 106 mmol/L (98-108); Globulin 2.9 g/dL (2.2-4.2); Glucose 88 mg/dL (70-99); Potassium 3.7 mmol/L (3.3-5.1); Vitamin D,25 Hydroxy 26.6 ng/mL (30-100)
[2024-12-02 18:54] LABS: Xtra Tube Kwok EXTRA TUBE
== END | disposition home or self-care (01) ==
LOC: POLAB3 10:52
PROVIDERS: PCP Family Medicine Geriatric Medicine; Visit Provider Family Medicine Geriatric Medicine
DX: E55.9 Vitamin D deficiency, unspecified (principal); R53.83 Other fatigue
CPT/HCPCS: 36415; 80053; 82306; 84443; 85025

== ENCOUNTER → 2024-12-02 | Outpatient (CLI) | payer MEDICARE, BC, SELFPAY ==
--- NOTE | 2024-12-02 13:14 | VDLE_ITS ---
Reason For Study Reason For Study: Right leg swelling RIGHT LEFT GSV is normal. GSV is normal. CFV is compressible, spontaneous, phasic, competent CFV is compressible, spontaneous, phasic, competent, and demonstrates normal augmentation. and demonstrates normal augmentation. FV is compressible, spontaneous, phasic, competent FV is compressible, spontaneous, phasic, competent and demonstrates normal augmentation. and demonstrates normal augmentation. POP V is compressible, spontaneous, phasic, competent POP V is compressible, spontaneous, phasic, competent and demonstrates normal augmentation. and demonstrates normal augmentation. T/P Trunk is compressible. T/P Trunk is compressible. PTV is compressible. PTV is compressible. RT PerV is compressible. LT PerV is compressible. Minimal thrombus filled varicose vein noted at the lateral knee at area of bruise. Procedure This is a venous duplex using B-mode, color flow and spectral Doppler. Exam performed in department. A preliminary report was called and/or faxed to [facility]. VL/Venous Duplex US - Marlon Extrem Interpretation Summary Acute superficial vein thrombosis noted in varicosities adjacent to the right k nee. Deep veins of the bilateral lower extremities are patent and compressible segme ntally. There is no evidence of bilateral lower extremity deep vein thrombosis. The bilateral great saphenous veins appea r patent and compressible segmentally. Ordering Physician: Romeo Shankar Chi Referring Physician: Romeo Shankar Chi Performed By: Katerina Magaña RVT
--- OUTSIDE RECORDS SUMMARY | 2024-12-02 22:31 | XMS RPT_ITS | CCD ---
Author Organization [facility] Care Team Providers Care [employer] Intern Name Role Phone EDGAR HOLBROOK Attending EDGAR Young Referring EDGAR Young Primary Care Edgar Young Primary Care Provider Edgar Holbrook Primary Care Provider Edgar Holbrook Primary Care Provider Edgar Holbrook Unavailable Edgar Holbrook Primary Care Provider Edgar Holbrook MD Primary Care Provider Edgar Holbrook Primary Care Provider Darrell, Dr. Chay Srivastava Attending Unavaila ble Sheron, Dr. Edgar Kern Primary Care Unavaila ble Clarice, Ms. Kait Bell Attending Unavaila ble Sheron, Dr. Edgar Kern Primary Care Unavaila collin Ramírez, Dr. Chay Srivastava Attending Unavaila ble Sheron, Dr. Edgar Kern Primary Care Unavaila collin Ramírez, Dr. Chay Srivastava Attending Unavaila ble Sheron, Dr. Edgar Kern Primary Care Unavaila ble Sheron, Dr. Edgar Kern Primary Care Unavaila ble Darrell, Dr. Chay Srivastava Attending Unavaila ble Clarice, Ms. Kait Bell Attending Unavaila ble Sheron, Dr. Edgar Kern Primary Care Unavaila ble Clarice, Ms. Kait Bell Attending Unavaila ble Sheron, Dr. Edgar Kern Primary Care Unavaila ble Clarice, Ms. Kait Bell Attending Unavaila collin Holbrook, Dr. Edgar Kern Primary Care Unavaila collin Ramírez, Dr. Chay Srivastava Attending Unavaila ble Sheron, Dr. Edgar Kern Primary Care Unavaila collin Ramírez, Dr. Chay Srivastava Attending Unavaila ble [place], Dr. Edgar Kern Primary [facility] Unavaila ble Ramírez, Dr. Chay Srivastava Attending Unavaila ble [place]ie, Dr. Edgar Kern [facility] Unavaila ble Ramírez, Dr. Chay Srivastava Attending Unavaila ble [place], Dr. Edgar Kern [facility] Unavaila ble Ramírez, Dr. Chay Srivastava Attending Unavaila ble [place], Dr. Edgar eKrn Primary [facility] Unavaila ble Ramírez, Dr. Chay Srivastava Attending Unavaila ble [place], Dr. Edgar Kern [facility] Unavaila ble [place], Dr. Edgar Kern [facility] Unavaila ble Teach, MsMarivel Bell Attending Unavaila ble [place], Dr. Edgar Kern [facility] Unavaila ble Darrell, Dr. Chay Srivastava Attending Unavaila ble [place], Dr. Edgar Kern [facility] Unavaila ble Darrell, Dr. Chay Srivastava Attending Unavaila ble [place], Dr. Edgar Kern [facility] Unavaila ble Teach, MsMarivel Bell Attending Unavaila ble [place], Dr. Edgar Kern [facility] Unavaila ble Teach, MsMarivel Kaitfabiano Bell Attending Unavaila ble [place], Dr. Edgar Kern [facility] Unavaila ble Teach, MsMarivel Bell Attending Unavaila ble [place], Dr. Edgar Kern [facility] Unavaila ble Teach, MsMarivel Kaitfabiano Bell Attending Unavaila ble Teach, MsMarivel Kaitfabiano Bell Attending Unavaila ble [place], Dr. Edgar Kern [facility] Unavaila ble Darrell, Dr. Chay Srivastava Attending Unavaila ble [place], Dr. Edgar Kern [facility] Unavaila ble Sheron, Dr. Edgar Kern [facility] Unavaila ble Darrell, Dr. Chay Srivastava Attending Unavaila ble Ramírez, Dr. Chay Srivastava Attending Unavaila ble [place], Dr. Edgar Kern [facility] Unavaila ble Sheron, Dr. Edgar Kern [facility] Unavaila ble Teach, MsMarivel Bell Attending Unavaila ble [place]magg[place], Dr. Edgar Kern [facility] Unavaila ble Teach, MsMarivel Bell Attending Unavaila ble Unavailable Primary Care Provider Tika Holbrook, Dr. Juarez Primary Care Provider [phone] Sheron, Dr. Juarez Referring Provider [phone] Casey PAULA, NISA Smith Attending Provider Edgar Holbrook MD Primary Care Provider Raad CHINO, Paulo Primary Care Provider ALYSSA SCHULTZ H Referring Unavailable GUSLERMAYANK Attending Unavailable RAAD, ROMEO-CHI Primary Care Unavailable ANTOINE, ALYSSA H Referring Unavailable ANTOINE, ALYSSA H Attending Unavailable RAAD, ROMEO-CHI Primary Care Unavailable CONSULT, SURGERY - NEURO Consulting Unavail able EDGAR HOLBROOK Primary Care Unavailable SYSTEM, PROVIDER NOT IN Referring Unavaila ble ANTOINE, ALYSSA H Attending Unavailable ANTOINE, ALYSSA H Admitting Unavailable RAAD, ROMEO-CHI Primary Care Unavailable MAYANK CLINE T Referring Unavailable MAYANK CLINE Attending Unavailable RAAD, ROMEO CHI Attending Unavailable RAAD, ROMEO CHI Consulting Unavailable RAAD, ROMEO CHI Primary Care Unavailable RAAD, ROMEO CHI Admitting Unavailable PROVIDER, UNKNOWN Consulting Unavailable PROVIDER, UNKNOWN Consulting Unavailable Raad CHINO, Dr. Romeo Julio Primary Care Provider Raad CHINO, Dr. Romeo Julio Attending Provider Dr. Romeo Shankar MD, Chi Referring Provider Unavailable Primary Care Provider Unavailabl e ZENOBIA RODRIGUEZ Attending Unavail able ZENOBIA RODRIGUEZ Referring Unavail able SHAWN RESENDEZ ZENOBIA Referring Unavail able ZENOBIA RODRIGUEZ Attending Unavail able Raad CHINO, Dr. Romeo Julio Primary Care Provider [phone] Dr. Romeo Shankar MD, Chi Attending Provider Dr. Romeo Shankar MD, Chi Referring Provider Provider, Ed Physician Emergency Provider Tammie peñaloza Raad, Romeo Chi Attending Unavailable Raad, Romeo Chi Referring Unavailable Raad, Romeo Chi Primary Care Unavailable Provider, Ed Physician Attending Unavailab le Raad, Romeo Chi Primary Care Unavailable Raad, Romeo Chi Attending Unavailable Raad, Romeo Chi Referring Unavailable Raad, Romeo Chi Primary Care Unavailable Raad, Romeo Chi Primary Care Unavailable Raad, Romeo Chi Attending Unavailable Raad, Romeo Chi Referring Unavailable Raad, Romeo Chi Primary Care Unavailable Raad, Romeo Chi Attending Unavailable Raad, Romeo Chi Referring Unavailable Raad, Romeo Chi Attending Unavailable Raad, Romeo Chi Primary Care Unavailable Raad, Romeo Chi Attending Unavailable Raad, Romeo Chi Primary Care Unavailable RaadRomeo Chi Attending Unavailable Raad, Romeo Chi Referring Unavailable Raad, Romeo Chi Primary Care Unavailable Raad Romeo Chi Attending Unavailable Raad, Romeo Chi Primary Care Unavailable Allergies Allergy Classification Reported Allergen(s) Allergy Type Date of Onset Reaction(s) Facility (20 sources) Penicillins; Translations: [Unknown] Propensity to adverse reactions to drug (disorder) 6 [facility] Medications Current Medications Medication Drug Class(es) Dates Sig (Normalized) Sig (Original) cholecalciferol 0.05 mg oral capsule (7 sources) Vitamin D Start: 05-30-2023 take 1 capsule by mouth once daily Cholecalciferol (Vitamin D3) (Vitamin D3) 50 mcg (2,000 unit) capsule Active 50 ug PO DAILY May 30, 2023 1:00am clobetasol propionate 0.0005 mg/mg topical ointment (4 sources) Corticosteroid Start: 08-29-2018 End: 01-26-2022 clobetasol (TEMOVATE) 0.05 % ointment Indications: Lichen sclerosus Apply to affected area BID x 6 weeks then use once weekly for maintenance 30 g 1 08/29/2018 01/26/2022 Discontinued (Course of therapy completed) Comment on above: Apply to affected ar ea BID x 6 weeks then use once weekly for maintenance dexamethasone 0.001 mg/mg / neomycin 0.0035 mg/mg / polymyxin b 10 unt/mg ophthalmic ointment (1 source) Aminoglycoside Antibacterial, Polymyxin-class Antibacterial, Corticosteroid Start: 02-07-2022 End: 02-21-2022 neomycin/polymyxin b/dexametha(MAXITRO L 3.5 MG/G-10,000 UNIT/G-0.1 % EYE OINTMENT) Use 1 application in the right eye twice daily for 14 days. 3.5 g 0 02/07/2022 02/21/2022 Active Comment on above: Use 1 application in the right eye twice daily for 14 days. doxycycline monohydrate 100 mg oral capsule (2 sources) Tetracycline-class Drug Start: 01-12-2022 End: 01-22-2022 take 1 capsule by mouth twice daily doxycycline monohydrate (MONODOX) 100 mg capsule Take 1 capsule by mouth twice daily for 10 days. 20 capsule 0 01/12/2022 01/22/2022 Active Comment on above: Take 1 capsule by [facility] twice daily for 10 days. ergocalciferol, vitamin D2, (VITAMIN D2 ORAL) (5 sources) ergocalciferol, vitamin D2, (VITAMIN D2 ORAL) Take by mouth. Active ergocalciferol, vitamin D2, (VITAMIN D2 ORAL) Take by mouth. 0 Active Comment on above: Take by mouth. erythromycin 0.005 mg/mg ophthalmic ointment (4 sources) Macrolide, Macrolide Antimicrobial Start: 01-13-20 End: 02-08-20 erythromycin (ROMYCIN) 5 mg/gram (0.5 %) ophthalmic ointment Use 1 application in the right eye twice daily for 10 days. 3.5 g 0 01/12/2022 01/22/2022 Active Comment on above: Use 1 application in the right eye twice daily for 10 days. Use 1 application in the right eye twice daily. estradiol 0.1 mg/ml vaginal cream (4 sources) Estrogen Start: 11-30-19 End: 01-27-20 estradiol (ESTRACE) 0.01 % (0.1 mg/gram) vaginal cream Indications: Post-menopausal atrophic vaginitis Use 0.5g daily for 2 weeks, then 2-3x per week. May use finger to apply. 42.5 g 3 11/29/2018 01/26/2022 Discontinued (Course of therapy completed) Comment on above: Use 0.5g daily for 2 weeks, then 2-3x per week. May use finger to apply. levothyroxine sodium 0.05 mg oral tablet (20 sources) l-Thyroxine Start: 05-04-20 End: 06-01-19 24 take 1 tablet by mouth once daily Levothyroxine 50 mcg tablet Active 50 ug PO DAILY May 04, 2020 1:00am Start: 07-07-2019 levothyroxine (SYNTHROID) 125 mcg tablet 1/2 tablet daily 07/07/2019 Active Start: 09-22-2015 End: 05-04-2020 Levothyroxine 125 MCG tablet Discontinued 34 ug PO DAILY September 22, 2015 12:00am May 04, 2020 3:11pm Start: 09-22-2015 End: 05-04-2020 take 34 ug by mouth once daily Levothyroxine Discontin ued 34 MCG PO DAILY September 21, 2015 11:00pm May 04, 2020 2:11pm take 1 tablet by zeb th once daily levothyroxine (SYNTHROID, LEVOTHROID) 125 MCG tablet Take 125 mcg by mouth daily. 0 Active Comment on above: 1/2 tablet daily miSOPROStol 0.2 mg oral tablet (4 sources) Prostaglandin E1 Analog Start: 08-11-2024 miSOPROStol (CYTOTEC) 200 mcg tablet Take two tablets PO night before procedure and two tablets morning of procedure 4 tablet 08/11/2024 Active omeprazole 20 mg delayed release oral capsule (20 sources) Proton Pump Inhibitor Start: 08-08-2008 End: 05-04-2020 omeprazole(PRILOSEC 20 MG CAP) 0 08/08/2008 Active End: 05-30-2023 OMEPRAZOLE PO Take by mouth. 05/30/2023 Discontinued (Medication Reconciliation (suppress cancel msg)) OMEPRAZOLE PO Ta ke by mouth. 0 Active ondansetron 4 mg oral tablet (4 sources) Serotonin-3 Receptor Antagonist Start: 05-31-2023 End: 05-31-2023 8 mg, Intravenous, ONCE, 1 dose, On Nayely 05/31/23 at 0515 Start: 06-15-2022 End: 06-15-2022 Ondansetron 4mg/2ml (ZOFRAN) injection 4 mg Start: 06-15-2022 End: 05-30-2023 take 1 tablet by mouth every eight hours as needed Ondansetron 4 MG tablet Take 1 tablet by mouth every 8 hours as needed for Nausea / Vomiting or Nausea for up to 8 doses. 8 tablet 06/15/2022 05/30/2023 Discontinued (Medication Reconciliation (suppress cancel msg)) predniSONE 20 mg oral tablet (12 sources) Start: 03-02-2021 End: 01-26-2022 predniSONE (DELTASONE) 20 mg tablet Take by mouth. 0 03/02/2021 01/26/2022 Discontinued (Course of therapy completed) Start: 03-02-2021 End: 05-30-2023 take 2 tablets by mouth once daily Prednisone 20 MG tablet Discontinued 40 mg PO DAILY 12 March 02, 2021 12:00am May 30, 2023 12:45pm Start: 03-02-2021 End: 05-30-2023 take 40 mg by mouth once daily Prednisone Discontinued 40 MG PO DAILY March 01, 2021 11:00pm May 30, 2023 11:45am Comment on above: Take by mouth. raNITIdine 150 mg oral tablet (2 sources) Histamine-2 Receptor Antagonist take 1 tablet by mouth twice daily ranitidine (ZANTAC) 150 MG tablet Take 150 mg by mouth 2 (two) times a day. 0 Active Completed/Discontinued Medications Medication Drug Class(es) Dates Sig (Normalized) Sig (Original) Acetaminophen (1 source) Start: 05-30-2023 End: 06-01-2023 take 1 tablet by mouth every four hours as needed Acetaminophen (TYLENOL) tablet 325 mg acetaminophen 325 mg / HYDROcodone bitartrate 5 mg oral tablet (8 sources) Opioid Agonist Start: 03-02-2021 End: 05-30-2023 Hydrocodone-Acetami nophen 1 TABLET tablet Discontinued 1 {tbl} PO EVERY 4 HOURS NEEDED as needed for Pain 10 2 0 March 02, 2021 May 30, 2023 12:45pm Acute left-sided back pain with sciatica Lumbago with sciatica, left side Start: 03-02-2021 End: 05-30-2023 take 1 tablet by mouth every four hours as needed Hydrocodone-Acetaminophen Discontinued 1 TABLET PO EVERY 4 HOURS NEEDED 10 2 March 02, 2021 May 30, 2023 11:45am acetaminophen 325 mg / oxyCODONE hydrochloride 5 mg oral tablet (8 sources) Opioid Agonist Start: 05-12-2020 End: 05-17-2020 Oxycodone-Acetaminophen 1 TABLET tablet Discontinued 1 - 2 {tbl} PO EVERY 6 HOURS NEEDED as needed for Pain 01 10May 12, 2020 May 16, 2020 1:00am May 17, 2020 1:02am Postoperative pain Other acute postprocedural pain Start: 05-12-2020 End: 05-17-2020 take 1 tablet by mouth every six hours as needed Oxycodone-Acetaminophen Discontinued 1 - 2 TABLET PO EVERY 6 HOURS NEEDED 01 10May 12, 2020 May 17, 2020 12:02am Enoxaparin Sodium (LOVENOX) injection 40 mg (1 source) Start: 06-01-2023 End: 06-01-2023 Enoxaparin Sodium (LOVENOX) injection 40 mg gabapentin 100 mg oral capsule (6 sources) Anti-epilepti c Agent Start: 01-05-2022 End: 04-09-2023 gabapentin (NEURONTIN) 100 mg capsule gadoterate Meglumine (DOTAREM) 5 MMOL/10ML injection 3-60 mL (1 source) Start: 05-31-2023 End: 05-31-2023 3-60 mL, Intravenous, ONCE, 1 dose, On Nayely 05/31/23 at 0130, Extravasation Risk, MR Procedure hydrALAZINE (APRESOLINE) injection 10 mg (1 source) Start: 05-30-2023 End: 06-01-2023 take 10 mg intravenously every hour as needed hydrALAZINE (APRESOLINE) injection 10 mg 1 ml HYDROmorphone hydrochloride 1 mg/ml cartridge (1 source) Opioid Agonist Start: 06-15-2022 End: 06-15-2022 HYDROmorphone (DILAUDID) injection 0.5 mg iohexol (OMNIPAQUE) 350 MG/ML injection 1-171 mL (2 sources) Start: 05-31-2023 End: 05-31-2023 1-171 mL, Intravenous, ONCE, 1 dose, On Nayely 05/31/23 at 0445, Extravasation Risk, CT Procedure Start: 05-30-2023 End: 05-30-2023 1-171 mL, Intravenous, ONCE, 1 dose, On 05/30/23 at 2215, Extravasation Risk, CT Procedure iohexol (OMNIPAQUE) 350 MG/ML injection 75 mL (1 source) Start: 06-15-2022 End: 06-15-2022 iohexol (OMNIPAQUE) 350 MG/ML injection 75 mL Labetalol (NORMODYNE) injection 10 mg (1 source) Start: 05-30-2023 End: 06-01-2023 take 10 mg intravenously every hour as needed Labetalol (NORMODYNE) injection 10 mg meloxicam 15 mg oral tablet (8 sources) Nonsteroidal Anti-inflammatory Drug Start: 05-04-2020 End: 06-25-2020 take 1 tablet by mouth once daily Meloxicam 15 mg tablet Discontinued 15 mg PO DAILY May 04, 2020 1:00am June 25, 2020 11:39am methylPREDNISolone 4 mg oral tablet (8 sources) Corticosteroid Start: 06-25-2020 End: 05-30-2023 take 1 tablet by mouth once Methylprednisolone (Medrol (Max)) 4 mg tablets,dose pack Discontinued 0 PO per package directions 21 0 June 25, 2020 1:00am May 30, 2023 12:45pm PO PER PKG DIR 2 ml metoclopramide 5 mg/ml prefilled syringe (1 source) Dopamine-2 Receptor Antagonist Start: 05-31-2023 End: 06-01-2023 take 10 mg intravenously every six hours as needed 10 mg, Intravenous, EVERY 6 HOURS NEEDED, Starting on Sun05/31/23 at 1215, Until Sun06/01/23 at 1816, Refractory Nausea Vomiting, If given via IV route: administer slowly over 2 minutes. metroNIDAZOLE 500 mg oral tablet (2 sources) Nitroimidazole Antimicrobial Start: 08-12-2024 End: 08-19-2024 take 1 tablet by mouth twice daily metroNIDAZOLE (FLAGYL) 500 mg tablet Indications: Bacterial vaginitis Take 1 tablet by mouth two times a day for 7 days. 14 tablet 08/12/2024 08/19/2024 Ondansetron 4mg/2ml (ZOFRAN) injection 4 mg (1 source) Start: 05-30-2023 End: 06-01-2023 take 4 mg intravenously every six hours as needed Ondansetron 4mg/2ml (ZOFRAN) injection 4 mg pantoprazole 40 mg delayed release oral tablet (1 source) Proton Pump Inhibitor Start: 05-31-2023 End: 06-01-2023 take 40 mg by mouth once daily 40 mg, Oral, DAILY, First dose on Sun05/31/23 at 0900, Until Discontinued, Swallow whole; do not crush or chew., Indications: Continuation of Home Therapy Polyethylene glycol (MIRALAX) packet 17 g (1 source) Start: 05-30-2023 End: 06-01-2023 Polyethylene glycol (MIRALAX) packet 17 g 1000 ml potassium chloride 0.02 meq/ml / sodium chloride 9 mg/ml injection (1 source) Start: 05-30-2023 End: 05-31-2023 Intravenous, at 75 mL/hr, CONTINUOUS, Starting on Sun05/30/23 at 2230, Until Sun05/31/23 at 1535 rosuvastatin calcium 5 mg oral tablet (20 sources) HMG-CoA Reductase Inhibitor Start: 05-31-2023 End: 07-24-2023 take 5 mg by mouth once daily 5 mg, Oral, DAILY, First dose on Sun05/31/23 at 0900, Until Discontinued Start: 05-04-2020 take 5 mg by mouth once daily Rosuvastatin 10 mg tablet Active 5 mg PO DAILY May 04, 2020 1:00am Start: 05-04-2020 take 5 mg by mouth once daily Rosuvastatin Active 5 MG PO DAILY May 04, 2020 12:00am Start: 09-30-2019 rosuvastatin ( CRESTOR) 10 mg tablet 09/30/2019 Active Senna Leaves (1 source) Start: 05-31-2023 End: 06-01-2023 Senna (SENOKOT) tablet 8.6 m g 20 ml sodium chloride 9 mg/m l injection (4 sources) Start: 05-30-2023 End: 05-31-2023 1-100 mL, Intravenous, ONCE NEEDED, 1 dose, Starting on Sun05/31/23 at 0436, Until Sun05/31/23 at 0438, Flush, CT Procedure Start: 06-15-2022 End: 06-15-2022 Sodium chloride 0.9% IV solu tion 75 mL traMADol hydrochloride 50 mg oral tablet (8 sources) Opioid Agonist Start: 05-25-2020 End: 05-30-2020 take 1 tablet by mouth three times daily as needed for pain Tramadol 50 mg tablet Discontinued 50 mg PO THREE TIMES A DAY as needed for pain 30 5 0 May 25, 2020 1:00am May 29, 2020 1:00am May 30, 2020 1:03am stop all other narcotics tropicamide 10 mg/ml ophthalmic solution (1 source) Anticholinergic Start: 04-09-2023 End: 04-09-2023 tropicamide 1 % 1 Drop (MYDRIACYL) Problems Active Problems Problem Classification Problem Date Documented Date Episodic/Chronic Abdominal pain (17 sources) Right lower quadrant pain; Translations: [Right lower quadrant pain] Episodic Acute cerebrovascular disease (16 sources) Intracranial hemorrhage; Translations: [Nontraumatic intracranial hemorrhage, unspecified] Onset: 05-30-2023 05-30-2023 Chronic Cardiac dysrhythmias (1 source) Palpitations; Translations: [Palpitation] Episodic Cataract (12 sources) Bilateral senile combined form cataracts of eyes; Translations: [Combined forms of age-related cataract, bilateral] Onset: 09-14-2014 08-17-2016 Chronic Disorders of lipid metabolism (7 sources) Hyperlipidemia; Translations: [Hyperlipidemia, unspecified] 05-30-2023 Chronic Esophageal disorders (7 sources) Gastroesophageal reflux disease; Translations: [Gastro-esophageal reflux disease without esophagitis] 05-30-2023 Chronic Fracture of upper limb (8 sources) Fracture of distal end of radius; Translations: [Unspecified fracture of the lower end of left radius, initial encounter for closed fracture] 04-30-2020 Episodic Genitourinary symptoms and ill-defined conditions (12 sources) Urge incontinence of urine; Translations: [Urge incontinence] Onset: 11-04-2012 11-04-2012 Chronic Genitourinary symptoms and ill-defined conditions (20 sources) Increased frequency of urination; Translations: [Frequency of micturition] 05-30-2023 Episodic Inflammation; infection of eye (except that caused by tuberculosis or sexually transmitteddisease) (1 source) Hordeolum externum of upper eyelid of right eye; Translations: [Hordeolum externum right upper eyelid] Episodic Inflammatory diseases of female pelvic organs (1 source) Bacterial vaginosis; Translations: [Acute vaginitis] 08-12-2024 Episodic Intracranial injury (3 sources) Intraparenchymal hematoma of brain; Translations: [Intraparenchymal hematoma of brain] Onset: 05-30-2023 07-24-2023 Episodic Late effects of cerebrovascular disease (3 sources) Impaired cognition; 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] Onset: 07-24-2023 07-24-2023 Chronic Menopausal disorders (7 sources) Postmenopausal bleeding; Translations: [Postmenopausal bleeding] Onset: 09-23-2024 Chronic Nausea and vomiting (1 source) Nausea; Translations: [Nausea] Episodic Osteoarthritis (7 sources) Osteoarthritis; Translations: [Unspecified osteoarthritis, unspecified site] 05-30-2023 Chronic Other acquired deformities (20 sources) Lumbar spondylolisthesis; Translations: [Spondylolisthesis] Episodic Other acquired deformities (1 source) Spondylolisthesis, lumbar region; Translations: [Spondylolisthesis, lumbar region] Onset: 09-18-2022 Episodic Other and unspecified benign neoplasm (1 source) Benign neoplasm of skin of right upper eyelid; Translations: [Other benign neoplasm of skin of right upper eyelid, including canthus] Episodic Other eye disorders (12 sources) Bilateral vitreous floaters; Translations: [Other vitreous opacities, bilateral] Onset: 09-14-2014 08-17-2016 Chronic Other eye disorders (2 sources) Chalazion of right upper eyelid; Translations: [Chalazion right upper eyelid] Episodic Other female genital disorders (1 source) Abnormal uterine bleeding; Translations: [Abnormal uterine and vaginal bleeding, unspecified] Chronic Other female genital disorders (1 source) Vaginal irritation; Translations: [Other specified noninflammatory disorders of vagina] 08-11-2024 Episodic Other nervous system disorders (10 sources) Abnormal gait; Translations: [Abnormality of gait] Episodic Other nervous system disorders (1 source) Unspecified abnormalities of gait and mobility; Translations: [Unspecified abnormalities of gait and mobility] Onset: 09-18-2022 Episodic Other nutritional; endocrine; and metabolic disorders (1 source) Obese class II; Translations: [Obesity, unspecified] Onset: 07-24-2023 07-24-2023 Chronic Other skin disorders (12 sources) Lichen sclerosus et atrophicus; Translations: [Circumscribed scleroderma] Onset: 11-04-2012 11-04-2012 Chronic Residual codes; unclassified (7 sources) Confusional state; Translations: [Disorientation, unspecified] 05-30-2023 Episodic Residual codes; unclassified (3 sources) Disorientation, unspecified; Translations: [Unspecified psychosis] 05-30-2023 Episodic Residual codes; unclassified (2 sources) Other specified health status; Translations: [Other specified health status] Onset: 08-09-2023 Episodic Spondylosis; intervertebral disc disorders; other back problems (20 sources) Lumbar spondylosis; Translations: [Lumbosacral spondylosis without myelopathy] Onset: 03-27-2022 Chronic Unclassified (2 sources) Low back pain, unspecified; Translations: [Low back pain, unspecified] Onset: 09-18-2022 Past or Other Problems Problem Classification Problem Date Documented Da te Episodic/Chronic Blindness and vision defects (20 sources) Hypermetropia; Translations: [Hypermetropia, unspecified eye] Onset: 09-14-2014 09-14-2014 Episodic Malaise and fatigue (1 source) Other fatigue; Translations: [Other fatigue] Onset: 06-25-2024 Episodic Other connective tissue disease (12 sources) Muscle weakness; Translations: [Muscle weakness (generalized)] Onset: 02-19-2019 02-19-2019 Episodic Other injuries and conditions due to external causes (12 sources) Foreign body in conjunctival sac; Translations: [Foreign body in conjunctival sac, unspecified eye, initial encounter] Onset: 08-24-2014 08-24-2014 Episodic Other screening for suspected conditions (not mental disorders or infectious disease) (3 sources) Patient encounter status; Translations: [Encounter for screening for malignant neoplasm of cervix] Onset: 07-24-2024 Episodic Spondylosis; intervertebral disc disorders; other back problems (20 sources) Spinal stenosis of lumbar region; Translations: [Spinal stenosis, lumbar region, without neurogenic claudication] Onset: 03-27-2022 Episodic Urinary tract infections (1 source) Urinary tract infection, site not specified; Translations: [Urinary tract infection, site not specified] Onset: 07-31-2024 Episodic Results Test Name Value Interpretation Reference Range Facility Knee 4 or More Viewson 11-28 Knee 4 or More Views [facility] [facility] [address] [place] [address] [id number] Knee 4 or More Views MR#: [id number] Acct: [id number] Name: KAIA HALEY Rep #: [id number] : 1955 F 69 From: Dewayne Thomas MD PCP: Dr. Roemo Shankar MD Status: PRE ER Study: Knee 4 or More Views Date of Exam: 11/28/24 Exam# [id number] Ordering Dr: Oswald Restrepo. PROCEDURE: KNEE 4 OR MORE VIEWS 11/28/2024 REASON FOR EXAM: INJURY TECHNIQUE: KNEE 4 OR MORE VIEWS COMPARISON: None FINDINGS: Bones: No fracture. Joints: Minimal joint space narrowing patellofemoral joint at the lateral facet. Minimal spurring superior pole patella. Effusion: None Soft tissues: Small focus of calcification proximal portion lateral collateral ligament. RAD/Knee 4 or More Views IMPRESSION: 1. No fracture 2. Very mild degenerative change patellofemoral joint. 3. Calcification proximal portion lateral collateral ligament likely the sequelae of old injury. Reading Location: [id number] CC: Dr. Romeo Shankar MD; ED PHYSICIAN PROVIDER Cylinder Tester: Signed Normal [facility] Tibia Fibula 2 Viewson 11-28 Tibia Fibula 2 Views [facility] Imaging Services [address] [place] [address] Tibia Fibula 2 Views MR#: [id number] Acct: [id number] Name: SUDHAJENNYKAIA NELL Rep #: [id number] : 1955 F 69 From: Mayank Hoyos MD PCP: Dr. Romeo Shankar MD Status: DEP ER Study: Tibia Fibula 2 Views Date of Exam: 11/28/24 Exam# [id number] Ordering Dr: Kaye,Oswald P. EXAM: Right tibia and fibula. CLINICAL HISTORY: Pain. COMPARISON: None. TECHNIQUE: Two views. FINDINGS: No evidence of acute fracture or dislocation. The soft tissues are unremarkable. RAD/Tibia Fibula 2 Views IMPRESSION: No acute osseous abnormalities. Reading Location: [id number] CC: Dr. Romeo Shankar MD; ED PHYSICIAN PROVIDER Cylinder Tester: Signed [facility] CNOVon 09-26-2024 CNOV Office Visit (OBGYWM) KAIA HALEY ([id number]) 1955 F Date Time Provider Department 09/26/24 8:20 AM ZENOBIA RODRIGUEZ OBGYWM During your visit today, we recorded the following information about you: Blood pressure Weight 126/80 92.5 kg Zenobia Rodriguez MD 09/26/2024 8:38 AM Signed Driver Service Technician offered: Patient declines. Kaia is a 69 year old Female who presents today for an endometrial biopsy for post menopausal bleeding. test: na UNIVERSAL PROTOCOL / SAFETY CHECKLIST Procedure to be Performed: EMB Sign In: A Moment of CARE was completed. Appropriate PPE (Personal Protective Equipment) worn by all providers involved with the procedure. Special equipment not required. Patient/Surrogate Stated/Verified: Patient name, Date of , Relevant allergies, and The intended procedure Time Out: Relevant labs, photos, and/or imaging studies have been reviewed. Intended patient and procedure match the source document(s) (e.g. consent, HANDP, associated studies [imaging, pathology]) are not applicable. Consent obtained and matches the intended procedure. Yes. Correct side/site has been marked and visible. Medications required for this procedure are verified. Fire risk assessed and is not applicable. Implants: are not applicable. Sign Out: Specimens are all correctly labeled and sent. All instruments, equipment, possible retained foreign bodies are accounted for. Yes. The post-procedure plan of care has been communicated to the patient or surrogate. PROCEDURE: EXTERNAL GENITALIA: Normal in appearance without lesions VAGINA: Normal in appearance without lesions BIOPSY: Speculum placed into the vagina with excellent visualization of the cervix. Cervix cleaned with betadine. Uterus sounded to 7 cm. Pipelle inserted into the uterus without difficulty and endometrial biopsy obtained. Specimen labeled and sent to pathology. Hemostasis achieved. Procedure Summary: Patient tolerated procedure well. ASSESSMENT: post menopausal bleeding PLAN: Specimens labeled and sent to Pathology. Will notify patient of results in 1-2 weeks. MD Vicky Catherine Bethany, MA 09/26/2024 8:20 AM Signed YOUR RECOVERY After your biopsy you may [...] do not hesitate to contact the office. Referring Provider: ZENOBIA RODRIGUEZ [[id number]] Allergies As of Date: 09/26/2024 Noted Allergy Reaction PENICILLINS 05/18/2005 2 - Rash Date Reviewed: 09/26/2024 Reviewed by: Danielle Perry MA - Fully Assessed Primary Visit Diagnosis:Postmenopa usal bleeding [N95.0] Order(s):ENDOMETRIAL BIOPSY [[id number]] Order #: [id number] SURGICAL PATHOLOGY [[id number]] Order #: [id number] Prescriptions as of 09/26/2024 - miSOPROStol (CYTOTEC) 200 mcg tablet Take two tablets PO night before procedure and two tablets morning of procedure - ergocalciferol, vitamin D2, (VITAMIN D2 ORAL) Take by mouth. - rosuvastatin (CRESTOR) 10 mg tablet - levothyroxine (SYNTHROID) 125 mcg tablet 1/2 tablet daily - omeprazole(PRILOSEC 20 MG CAP) Meds Comments as of 04/09/2023: Pt has been getting steroid shots for her back about ever 3 months- along with ablations. Problem List As Of Date 09/26/2024 Noted Resolved Urge incontinence [N39.41] 11/04/2012 Lichen sclerosus et atrophicus [L90.0] 11/04/2012 Foreign body in conjunctival sac - Right Eye [T*08/24/2014 Hyperopia - Both Eyes [H52.00] 09/14/2014 Regular astigmatism - Both Eyes [H52.229] 09/14/2014 Presbyopia - Both Eyes [H52.4] 09/14/2014 Combined form of senile cataract of both eyes [* (more content not included)... Normal [facility] Pathology biopsy report Daniel (Tiss)on 09-26-2024 AP DISCLAIMER Normal [facility] Comment on above: Order Comment: Speci men Type: TISSUE SPECIMEN Ordering Facility: [facility] Address: [address] [place] [address] Result Comment: Divine stratton Developed Test (LDT) Disclaimer: Performance characteristics of immunohistochemical, immunofluorescent, and chromogenic in-situ hybridization tests have been determined by the performing laboratory within [facility]'s [facility] Pathology and Laboratory Medicine Department ([facility], [facility], [facility], [facility], [facility], On License Of [facility], or [facility]) in a manner consistent with CLIA requirements. One or more of these tests may not have been cleared or approved by the FDA. [facility] is regulated under CLIA as qualified to perform high-complexity testing. These tests are used for clinical purposes. These should not be regarded as investigational or for research. Positive and negative controls stain appropriately. Performed By: #### 6 6121-5 #### [facility] CLIA [id number] [address] [place] [address] [place] CASE REPORT Normal [facility] Comment on above: Order Comment: Speci men Type: TISSUE SPECIMEN Ordering Facility: [facility] Address: [address] [place] [address] Result Comment: Surg ical Pathology Report Case: [id number] Authorizing Provider: Zenobia Rodriguez, Collected: 09/26/2024 08:41 AM Ordering Location: OB/Gynecology Received: 09/26/2024 12:06 PM Pathologist: Eduardo Feliz MD Specimen: Endometrium, Biopsy Performed By: #### 6 6121-5 #### [facility] CLIA [id number] [address] [place] CLINICAL HISTORY postmenopausal bleeding Normal [facility] Comment on above: Order Comment: Speci men Type: TISSUE SPECIMEN Ordering Facility: [facility] Address: [address] [place], [place] [address] Performed By: #### 6 6121-5 #### [facility] CLIA [id number] [address] [place], [place] [id number] [place] FINAL DIAGNOSIS Normal [facility] Comment on above: Order Comment: Speci men Type: TISSUE SPECIMEN Ordering Facility: [facility] Address: [address] [place] [address] Result Comment: Endo metrium, biopsy: - Benign endometrial epithelium. ACV/bs 09/30/2024 at 0817 EDT Performed By: #### 6 6121-5 #### [facility] CLIA [id number] [address] [place] [address] [place] FINAL PERFORMING LAB Normal [facility] Comment on above: Order Comment: Speci men Type: TISSUE SPECIMEN Ordering Facility: [facility] Address: [address] [place] [address] Result Comment: Diag nostic interpretation performed at: [facility], [address] [place], [place] [address]IA# [id number] Director Medical Safety: Jake Pop MD Performed By: #### 6 6121-5 #### [facility] CLIA [id number] [address] [place], [place] [id number] [place] GROSS DESCRIPTION Normal [facility] Comment on above: Order Comment: Speci men Type: TISSUE SPECIMEN Ordering Facility: [facility] Address: [address] [place] [address] Result Comment: A. E ndometrium, Biopsy Received in formalin are multiple [place], soft feathery segments of tissue admixed with mucinous material aggregating to 2.5 x 0.9 x 0.2 cm. Totally submitted in one cassette. [facility] September 26, 2024 9:05 PM Gross examination performed at [facility], [address] [place] [address] Performed By: #### 6 6121-5 #### [facility] CLIA [id number] [address] [place] [address] CNPNon 09-24-2024 CNPN Telephone (OBGYWM) KAIA HALEY ([id number]) 1955 F Date Time Provider Department 09/24/24 ZENOBIA RODRIGUEZ OBGYWM During your visit today, we recorded the following information about you: Helen Milner RN 09/24/2024 9:01 AM Signed Zenobia Rodriguez MD to [facility] Ob-Aerodynamicist Pool (Selected Message) 09/24/24 8:27 AM Result Note Please notify patient that her Endometrium is 3.8 mm (under 4 is normal). At this time because she does have risk factor for hyperplasia I would recommend EMB in office. If she declines she will need sampling if it recurs. PELVIC US WHI Helen Milner RN 09/24/2024 9:01 AM Signed Left message for patient to call office. LAURA Quigley Lindsey, RN 09/24/2024 9:08 AM Signed Patient notified of results, verbalizes understanding of instructions. Patient is scheduled for EMB on 09/26. Edelmira Wiseman RN Allergies As of Date: 09/24/2024 Noted Allergy Reaction PENICILLINS 05/18/2005 2 - Rash Date Reviewed: 08/11/2024 Reviewed by: Danielle Perry MA - Fully Assessed Reason for Visit: Results [95] Prescriptions as of 09/24/2024 - miSOPROStol (CYTOTEC) 200 mcg tablet Take two tablets PO night before procedure and two tablets morning of procedure - ergocalciferol, vitamin D2, (VITAMIN D2 ORAL) Take by mouth. - rosuvastatin (CRESTOR) 10 mg tablet - levothyroxine (SYNTHROID) 125 mcg tablet 1/2 tablet daily - omeprazole(PRILOSEC 20 MG CAP) Meds Comments as of 04/09/2023: Pt has been getting steroid shots for her back about ever 3 months- along with ablations. Problem List As Of Date 09/24/2024 Noted Resolved Urge incontinence [N39.41] 11/04/2012 Lichen sclerosus et atrophicus [L90.0] 11/04/2012 Foreign body in conjunctival sac - Right Eye [T*08/24/2014 Hyperopia - Both Eyes [H52.00] 09/14/2014 Regular astigmatism - Both Eyes [H52.229] 09/14/2014 Presbyopia - Both Eyes [H52.4] 09/14/2014 Combined form of senile cataract of both eyes [*09/14/2014 Vitreous floaters of both eyes [H43.393] 09/14/2014 Muscle weakness [M62.81] 02/19/2019 Encounter Status:Closed by EDELMIRA WISEMAN on 09/24/24 Normal [facility] Magnetic resonance imaging r eportOrdered By: Kai Jane on 08-20-2024 Study report [facility] Imaging Services [address] [place], [place] [id number] Spine Lumbar (Routine) MR#: [id number] Acct: [id number] Name: KAIA HALEY Rep #: [id number] : 1955 F 69 From: Brissa Jane MD PCP: Dr. Romeo Shankar MD Status: MARELY JANG Study:Spine Lumbar (Routine) Date of Exam: 08/18/24 Exam# [id number] Ordering Dr: Romeo Shankar MD EXAM: MRI LUMBAR SPINE. CLINICAL HISTORY: Low back pain radiating to the left lower extremity. COMPARISON: Radiographs on 07/22/2024. TECHNIQUE: Axial and sagittal T1 and T2 weighted images were obtained. Fat suppressed images were also obtained. FINDINGS: There is normal signal intensity from the visualized bone marrow without evidence of replacement or acute fracture. The conus is unremarkable. Normal lumbar lordosis. The vertebral alignment is within normal limits. Evaluation of the individual levels revealed the following: L5-S1: There is mild diffuse disc bulge. Superimposed broad-based right paracentral disc protrusion measuring 3.2 mm. Bilateral facet joint arthropathy and ligamentum flavum hypertrophy. The spinal canal is not narrowed. There is minimal bilateral neural foramina narrowing. L4-5: There is grade 1 anterolisthesis measuring 5.7 mm. Moderate diffuse disc bulge. Bilateral facet joint arthropathy and ligamentum flavum hypertrophy, more prominent on the right side. The spinal canal is mildly narrowed. There is mild bilateral neural foramina narrowing. L3-4: There is mild diffuse disc bulge. Superimposed central/right paracentral disc extrusion measuring 4.2 mm. Bilateral facet joint arthropathy and ligamentum flavum hypertrophy. The spinal canal is not narrowed. There is mild bilateral neural foraminal narrowing. L2-3: There is mild diffuse disc bulge. Bilateral facet joint arthropathy and ligamentum flavum hypertrophy. The spinal canal is not narrowed. There is minimal bilateral neural foraminal narrowing. L1-2: There is mild diffuse disc bulge. The spinal canal is not narrowed. Thereis no evidence of neural foramina narrowing. T12-L1: There is mild diffuse disc bulge. The spinal canal is not narrowed. Minimal bilateral neural foraminal narrowing. Normal visualized paraspinous soft tissue structures. MRI/Spine Lumbar (Routine) IMPRESSION: Spondylosis. Degenerative disc disease. Reading Location[facility] CC: Dr. Romeo Shankar MD ~ Cylinder Tester: Signed [facility] Spine Lumbar (Routine)on Spine Lumbar (Routine) [facility] Imaging Services [address] [place], [place] [address] Spine Lumbar (Routine) MR#: [id number] Acct: [id number] Name: KAIA HALEY Rep #: [id number] : 1955 F 69 From: Kai olivier MD PCP: Dr. Romeo Shankar MD Status: REG CLI Study: Spine Lumbar (Routine) Date of Exam: 08/18/24 Exam# [id number] Ordering Dr: Romeo Shankar MD EXAM: MRI LUMBAR SPINE. CLINICAL HISTORY: Low back pain radiating to the left lower extremity. COMPARISON: Radiographs on 07/22/2024. TECHNIQUE: Axial and sagittal T1 and T2 weighted images were obtained. Fat suppressed images were also obtained. FINDINGS: There is normal signal intensity from the visualized bone marrow without evidence of replacement or acute fracture. The conus is unremarkable. Normal lumbar lordosis. The vertebral alignment is within normal limits. Evaluation of the individual levels revealed the following: L5-S1: There is mild diffuse disc bulge. Superimposed broad-based right paracentral disc protrusion measuring 3.2 mm. Bilateral facet joint arthropathy and ligamentum flavum hypertrophy. The spinal canal is not narrowed. There is minimal bilateral neural foramina narrowing. L4-5: There is grade 1 anterolisthesis measuring 5.7 mm. Moderate diffuse disc bulge. Bilateral facet joint arthropathy and ligamentum flavum hypertrophy, more prominent on the right side. The spinal canal is mildly narrowed. There is mild bilateral neural foramina narrowing. L3-4: There is mild diffuse disc bulge. Superimposed central/right paracentral disc extrusion measuring 4.2 mm. Bilateral facet joint arthropathy and ligamentum flavum hypertrophy. The spinal canal is not narrowed. There is mild bilateral neural foraminal narrowing. L2-3: There is mild diffuse disc bulge. Bilateral facet joint arthropathy and ligamentum flavum hypertrophy. The spinal canal is not narrowed. There is minimal bilateral neural foraminal narrowing. L1-2: There is mild diffuse disc bulge. The spinal canal is not narrowed. There is no evidence of neural foramina narrowing. T12-L1: There is mild diffuse disc bulge. The spinal canal is not narrowed. Minimal bilateral neural foraminal narrowing. Normal visualized paraspinous soft tissue structures. MRI/Spine Lumbar (Routine) IMPRESSION: Spondylosis. Degenerative disc disease. Reading Location: [facility] CC: Dr. Romeo Shankar MD Cylinder Tester: [facility]igned [facility] Tele[facility] (OBGYWM) KAIA HALEY ([id number]) 1955 F Date Time Provider Department 08/12/24 ZENOBIA RODRIGUEZ OBGYWM During your visit today, we recorded the following information about you: Helen Milner RN 08/12/2024 9:11 AM Signed Zenobia Rodriguez MD to [facility] Ob-Aerodynamicist Pool 08/12/24 9:00 AM Result Note Please notify patient that her culture was positive for BV- I will treat with flagyl. She should still get pelvic ultrasound completed. KATHLEEN/TRICHOMONAS NAAT; BACTERIAL VAGINOSIS NAAT Helen Milner RN 08/12/2024 9:11 AM Signed Left message for patient to call office. LAURA Quigley Jennifer, RN 08/12/2024 9:39 AM Signed Patient notified. Linda Irvin RN Allergies As of Date: 08/12/2024 Noted Allergy Reaction PENICILLINS 05/18/2005 2 - Rash Date Reviewed: 08/11/2024 Reviewed by: Danielle Perry MA - Fully Assessed Reason for Visit: Results [95] Prescriptions as of 08/12/2024 - metroNIDAZOLE (FLAGYL) 500 mg tablet Take 1 tablet by mouth two times a day for 7 days. - miSOPROStol (CYTOTEC) 200 mcg tablet Take two tablets PO night before procedure and two tablets morning of procedure - ergocalciferol, vitamin D2, (VITAMIN D2 ORAL) Take by mouth. - rosuvastatin (CRESTOR) 10 mg tablet - levothyroxine (SYNTHROID) 125 mcg tablet 1/2 tablet daily - omeprazole(PRILOSEC 20 MG CAP) Meds Comments as of 04/09/2023: Pt has been getting steroid shots for her back about ever 3 months- along with ablations. Problem List As Of Date 08/12/2024 Noted Resolved Urge incontinence [N39.41] 11/04/2012 Lichen sclerosus et atrophicus [L90.0] 11/04/2012 Foreign body in conjunctival sac - Right Eye [T*08/24/2014 Hyperopia - Both Eyes [H52.00] 09/14/2014 Regular astigmatism - Both Eyes [H52.229] 09/14/2014 Presbyopia - Both Eyes [H52.4] 09/14/2014 Combined form of senile cataract of both eyes [*09/14/2014 Vitreous floaters of both eyes [H43.393] 09/14/2014 Muscle weakness [M62.81] 02/19/2019 Encounter Status:Closed by LINDA IRVIN on 08/12/24 Normal [facility] BACTERIAL VAGINOSIS NAATon 0 08-11-2024 Lactobacillus crispatus+gasseri+jense qasim + Gardnerella vaginalis + Atopobium vaginae rRNA ANGEL+probe Ql (Vag fld) Detected Abnormal Not detected [facility] Comment on above: Order Comment: Speci men Type: SWAB Ordering Facility: [facility] Address: [address] [place] [address] Performed By: #### C VTV, BVAMP #### [facility] CLIA [id number] [address] [place] [address] [place] KATHLEEN/TRICHOMONAS NAATon 0 08-11-2024 C. glabrata RNA ANGEL+probe Ql (Vag fld) Not detected Normal Not detected [facility] Comment on above: Order Comment: Speci men Type: SWAB Ordering Facility: [facility] Address: [address] [place] [address] Performed By: #### C VTV, BVAMP #### [facility] CLIA [id number] [address] [place] [address] [place] Kathleen sp DNA ANGEL+probe Ql (Vag fld) Not detected Normal Not detected [facility] Comment on above: Order Comment: Speci men Type: SWAB Ordering Facility: [facility] Address: [address] [place] [address] Result Comment: The Kathleen species group target includes C. albicans, C. tropicalis, C. parapsilosis, and C. dubliniensis. Performed By: #### C VTV, BVAMP #### [facility] CLIA [id number] [address] [place] [address] OF [facility] T. vaginalis DNA ANGEL+probe Ql (Unsp spec) Not detected Normal Not detected [facility] Comment on above: Order Comment: Speci men Type: SWAB Ordering Facility: [facility] Address: [address] [place] [address] Performed By: #### C VTV, BVAMP #### [facility] CLIA [id number] [address] [place] [address] OF [facility] CNOVon 08-11-2024 CNOV Office Visit (OBGYWM) HALEYKAIA Addis ([id number]) 1955 F Date Time Provider Department 08/11/24 3:00 PM ZENOBIA RODRIGUEZ OBGYWM During your visit today, we recorded the following information about you: Blood pressure Weight 120/70 93 kg Zenobia Rodriguez MD 08/11/2024 3:51 PM Signed Driver Service Technician offered: Patient declines. Kaia Haley is a 69 year old female who presents for vaginal bleeding. HPI: Post menopausal bleeding/irritation Itching for a couple months and now bleeding, worsened bleeding yesterday, no clots, believes it is due to irritation Does not use creams or moisturizer, previously given Estrace but does not remember using No odors or discharge Noticed blood on toilet paper, no blood in stool, no pain with BM, no history of hemorrhoids Wore pad yesterday evening, less blood throughout evening with light pink discharge. Today, a little bit of blood was present on underwear. Denies Changes in soaps or detergents. 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 History Comments: Sexual Activity: Not Asked; Male; not asked Contraception: No contraception data on record PAST MEDICAL HISTORY Diagnosis Date GERD (gastroesophageal reflux disease) Spinal stenosis Unspecified hypothyroidism PAST SURGICAL HISTORY Procedure Laterality Date COLONOSCOPY FLX DX W/COLLJ SPEC WHEN PFRMD Colonoscopy, Two EGD PAST SURGICAL HISTORY OF LAPAROSCOPIES X3 FAMILY HISTORY Problem Relation Age of Onset Macular Degen Mother Cataract Mother Parkinson?s Disease Mother Diabetes Father Diabetes Sister Pre Diabetic GI Sister Blood Clots Brother Results of a MVA No Known Problems Daughter No Known Problems Son Social History Tobacco Use Smoking status: Never Smokeless tobacco: Never Vaping Use Vaping status: Never Used Substance Use Topics Alcohol use: No Drug use: No Current Outpatient Medications Medication Sig ergocalciferol, vitamin D2, (VITAMIN D2 ORAL) Take by mouth. rosuvastatin (CRESTOR) 10 mg tablet levothyroxine (SYNTHROID) 125 mcg tablet 1/2 tablet daily omeprazole(PRILOSEC 20 MG CAP) No current facility-administere d medications for this visit. Allergies As of Date: 08/11/2024 Allergen Noted Reaction PENICILLINS 05/18/2005 Rash Fully Assessed 08/11/2024 REVIEW OF SYSTEMS Abdomen: No bloating, early satiety, indigestion, or increased flatulence. No abdominal pain, nausea, vomiting, diarrhea. Reports constipation. Bladder: No dysuria, gross hematuria, urinary frequency, urinary urgency, or incontinence. Breast: No breast lumps, nipple d/c, overlying skin changes, redness or skin retraction. Expanded ROS: N/A Allergies and current medication updated:Yes SENSITIVE EXAM: The sensitive examination was discussed with the Patient or Patient's Authorized Sub Prior. As applicable, any other physician, advance practice provider, medical student, or other health professional student that will be observing or involved in the sensitive examination for educational or training purposes was discussed with the Patient or Authorized Sub Prior. The Patient or Authorized Sub Prior has agreed to proceed with the sensitive examination. (Sensitive examination includes inspection and/or palpation of the breasts, pelvis, prostate and anorectal regions). EXAM: BP 120/70 Wt 205 lb (93.0kg) LMP 05/07/2005 GENERAL: pleasant, female in no apparent distress HEENT: Normocephalic and atraumatic NECK: Supple and full range of motion DERMATOLOGY: Normal, without lesions, non-icteric, and non-hirsute ABDOMEN: soft, non-tender, and no masses PELVIC: external genitalia normal, normal Bartholin's glands, urethra, [place]'s glands, no vulvar lesions, no cervical lesions, good vaginal support, normal appearing perineal body and perianal region, Scant blood noted at OS BIMANUAL: uterus normal size, shape and consistency, no adnexal masses, and non-tender NEURO: alert and oriented x3,exam grossly non-focal EXTREMITIES: normal ASSESSMENT AND PLAN: Assessment AND Plan PMB (postmenopausal bleeding) Orders: PAP TEST PELVIC US WHI; Future ENDOMETRIAL BIOPSY Vaginal irritation Orders: KATHLEEN/TRICHOMONAS NAAT BACTERIAL VAGINOSIS NAAT Encounter for screening for malignant neoplasm of cervix Orders: PAP TEST Medical Decision Making: Problems: Moderate: New problem with uncertain prognosis Data: Unique test result(s) reviewed: 1 Unique test(s) ordered: 3+ Risk: Moderate: Drug management and Moderate risk from testing/treatment Medical Decision Making Level: 4 - Moderate Zenobia Galdamez MD Allergies As of Date (more content not included)... Normal [facility] PAP TESTon 08-11-2024 ADEQUACY Normal [facility] Comment on above: Order Comment: Speci men Type: FLUID SPECIMEN Ordering Facility: [facility] Address: [address] [place] [address] Result Comment: Sati sfactory for interpretation. No endocervical component Performed By: #### L [id number] #### [facility] CLIA [id number] [address] [place] [address] [place] [address] [place] CASE REPORT Normal [facility] Comment on above: Order Comment: Speci men Type: FLUID SPECIMEN Ordering Facility: [facility] Address: [address] [place] [address] Result Comment: Gyne cologic Cytology Report Case: [id number] Authorizing Provider: Zenobia Rodriguez, Collected: 08/11/2024 03:43 PM Ordering Location: OB/Gynecology Received: 08/11/2024 04:42 PM First Screen: Linda Contreras, CT, ASCP Pathologist: Nasra Roche MD Specimen: Pap Test, ThinPrep, Cervix Performed By: #### L [id number] #### [facility] CLIA [id number] [address] [place] [address] [place] [facility] CLINICAL HISTORY, CYTOLOGY, COMPLIANCE EXAMINER Routine Exam Normal [facility] Comment on above: Order Comment: Speci men Type: FLUID SPECIMEN Ordering Facility: [facility] Address: [address] [place] [address] Result Comment: Vagi nal Spotting Post Menopausal Performed By: #### L [id number] #### [facility] CLIA [id number] [address] [place] [address] [place] FINAL PERFORMING LAB Normal [facility] Comment on above: Order Comment: Speci men Type: FLUID SPECIMEN Ordering Facility: [facility] Address: [address] [place] [address] Result Comment: Tech nical component, hand fretted instrument maker screening performed at [facility], [address] [place], [place] [id number] CLIA# [id number] Diagnostic interpretation performed at [facility], [address] [place], [place] [address] CLIA# [id number] Director Medical Safety: Kyler Car M.D. Performed By: #### L [id number] #### [facility] CLIA [id number] [address] [place] [address] [place] INTERPRETATION, CYTOLOGY, COMPLIANCE EXAMINER Normal [facility] Comment on above: Order Comment: Speci men Type: FLUID SPECIMEN Ordering Facility: [facility] Address: [address] [place] [address] Result Comment: Nega tive for intraepithelial lesion or malignancy. at 1749 EDT Performed By: #### L [id number] #### [facility] CLIA [id number] [address] [place] [address] [place] PAP DISCLAIMER COMMENT The Pap Smear is a screening test for cervical cancer. False negative results occur with all screening tests, emphasizing the need for rescreening at recommended intervals, and clinical correlation. Normal [facility] Comment on above: Order Comment: Speci men Type: FLUID SPECIMEN Ordering Facility: [facility] Address: [address] [place] [address] Performed By: #### L [id number] #### [facility] CLIA [id number] [address] [place] [address] [place] PAP AUTOMOTIVE PARTS PERSON COMMENT This specimen has been analyzed by the ThinPrep Imaging System, an automated imaging and review system, which assists the laboratory in evaluating cells on ThinPrep Pap tests. Following automated imaging, selected omalley from every slide are reviewed by a hand fretted instrument maker. Normal [facility] Comment on above: Order Comment: Speci men Type: FLUID SPECIMEN Ordering Facility: [facility] Address: [address] [place] [address] Performed By: #### L [id number] #### [facility] CLIA [id number] [address] [place] [address] [place] Urine Cultureon 07-25-2024 [facility] Mixed Gram Positive Organisms [place] Count 11,000-25,000 MIXC Mixed contaminants. Submit a new specimen if indicated. Normal [facility] Comment on above: Performed By: #### M 100.2200 ####[facility] [id number] [facility] [place], [address] Abdomen/Pelvis without Conto n 07-22-2024 Abdomen/Pelvis without Cont [facility] Imaging Services [address] [place] [address] Abdomen/Pelvis without Cont MR#: [id number] Acct: [id number] Name: KAIA HALEY Rep #: [id number] : 1955 F 69 From: Yemi Weems MD PCP: Dr. Romeo Shankar MD Status: REG CLI Study: Abdomen/Pelvis without Cont Date of Exam: 07/05 12/29 Exam# [id number] Ordering Dr: Romeo Shankar MD PROCEDURE: ABDOMEN/PELVIS WITHOUT CONT 07/22/2024 REASON FOR EXAM: KIDNEY STONE TECHNIQUE: CT abdomen and pelvis was performed without IV contrast. Multiplanar reformats were generated. PATIENT PREPARATION: Per protocol ORAL CONTRAST TYPE: None. CONTRAST: None. One or more dose reduction techniques were used (e.g., Automated exposure control, adjustment of the mA and/or kV according to patient size, use of iterative reconstruction technique. RADIATION DOSE SUMMARY: CTDlvol: 13.15 mGy DLP: 680.0 mGycm COMPARISON: 01/28/2022; note that only the images are available, the report is not available at the time of dictation. FINDINGS: Note that evaluation of the abdominopelvic viscera, vasculature, and remaining soft tissues is limited in the absence of IV contrast. Lung bases: Small atelectasis/scarring . Liver: Small LEFT lobe hypodensity too small to characterize likely a cyst or hemangioma in the absence of known malignancy, unchanged. Spleen: Granulomas. Gallbladder: Unremarkable. Pancreas: Unremarkable. Adrenals: Unremarkable. Kidneys: No hydronephrosis or ureteral calculus identified. Grossly similar presumed pelvic phleboliths in the absence of hydronephrosis and hydroureter. Bowel: Diverticulosis.. Normal caliber appendix. Lymph nodes: Unremarkable. Vasculature: Mild calcific atherosclerosis. Peritoneum: Unremarkable. Bladder: Underdistended and suboptimally evaluated, grossly unremarkable. Reproductive Organs: Unremarkable. Body Wall: Unremarkable. Bones: Suspect demineralization. Multilevel spondylosis.. CT/Abdomen/Pelvis without Cont IMPRESSION: 1. No acute noncontrast findings. No hydronephrosis or ureteral calculus identified. 2. Additional description as above. Reading [facility] CC: Dr. Romeo Shankar MD Cylinder Tester: Signed Normal [facility] L/S Spine Min 4 Viewson 07-05 L/S Spine Min 4 Views [facility] Imaging Services [address] [place] [address] L/S Spine Min 4 Views MR#: [id number] Acct: [id number] Name: KAIA HALEY Rep #: [id number] : 1955 F 69 From: Yemi Alcantara MD PCP: Dr. Romeo Shankar MD Status: REG CLI Study: L/S Spine Min 4 Views Date of Exam: 07/22/24 Exam# [id number] Ordering Dr: Romeo Shankar MD EXAM: XR Lumbosacral Spine, 2 or 3 Views CLINICAL INDICATION: LOW BACK PAIN TECHNIQUE: Frontal and lateral views of the lumbar spine and sacrum. COMPARISON: No relevant prior studies available. FINDINGS: VERTEBRAE: Multilevel endplate degenerative changes of the lumbar spine from L1-S1. Moderate facet arthropathy of L4-S1. Grade 1 anterior spondylolisthesis of L4 over L5. No acute fracture. SACRUM/COCCYX: Unremarkable as visualized. No acute fracture. DISC SPACES: See above. SOFT TISSUES: Unremarkable. RAD/L/S Spine Min 4 Views IMPRESSION: Degenerative changes as above. Reading Location: [facility] CC: Dr. Romeo Shankar MD Cylinder Tester: Signed Normal [facility] Urine cultureOrdered By: Romeo Shankar on 07-22-2024 Bacteria identified Cx Nom (U) Positive Abnormal [facility] [id number] DOrdered By: Connie Shankar on 06-05-2024 Vitamin D 25-Hydroxy 34.4 ng/mL [facility] Comment on above: Vitamin D 25(OH) Sta tus Range Deficiency <20 ng/mL (50nmol/L) Insufficiency 20 - 30 ng/mL (50 - 75 nmol/L) Sufficiency 30 - 100 ng/mL (75 - 250 nmol/L) Toxicity >100 ng/mL (>250 nmol/L) Absolute neutrophil countOrd ered By: Romeo Shankar on 06-05-2024 Neutrophils (Bld) [#/Vol] 2.9 10*3/uL 2.0-7.7 [facility] Albumin to globulin ratioOrd ered By: Romeo Shankar on 06-05-2024 Albumin/Globulin [Mass ratio] 1.0 {ratio} 0.9-2.4 [facility] Basophil percentageOrdered B y: Romeo Shankar on 06-05-2024 Basophils/100 WBC (Bld) 0.2 % 0-1 [facility] Bilirubin, totalOrdered By: Romeo Shankar on 06-05-2024 Bilirubin [Mass/Vol] 0.40 mg/dL 0.20-1.00 [facility] Comment on above: For patients on eltr ombopag therapy, use of [place] TBIL is not recommended. Blood urea nitrogen (BUN)/cr eatinine ratioOrdered By: Romeo Shankar on 06-05-2024 Urea nitrogen/Creatinine [Mass ratio] 15.2 mg/mg 10-20 [facility] CBC W/Diff, Automatedon 05-09 Absolute Lymph 1.41 X10 3/uL Normal 0.83-4.51 [facility] Comment on above: Performed By: #### L 100.0100, L501.9520, L506.1000, L500.4050 #### [facility] [address] [place], [address] Absolute Neut 2.9 X10 3/uL Normal 2.0-7.7 [facility] Comment on above: Performed By: #### L 100.0100, L501.9520, L506.1000, L500.4050 #### [facility] [address] [place], [address] Basophils/100 WBC (Bld) 0.2 % Normal 0-1 [facility] Comment on above: Performed By: #### L 100.0100, L501.9520, L506.1000, L500.4050 #### [facility] [address] [place], [address] Eosinophils/100 WBC (Bld) 1.7 % Normal 0-5 [facility] Comment on above: Performed By: #### L 100.0100, L501.9520, L506.1000, L500.4050 #### [facility] [address], [address] Erythrocyte distribution width (RBC) [Ratio] 14.0 % Normal 11.6-14.6 [facility] Comment on above: Performed By: #### L 100.0100, L501.9520, L506.1000, L500.4050 #### [facility] [address], [address] Hematocrit (Bld) [Volume fraction] 40.8 % Normal 37-47 [facility] Comment on above: Performed By: #### L 100.0100, L501.9520, L506.1000, L500.4050 #### [facility] [address] [place], [address] Hemoglobin (Bld) [Mass/Vol] 13.3 g/dL Normal 12.0-15.0 [facility] Comment on above: Performed By: #### L 100.0100, L501.9520, L506.1000, L500.4050 #### [facility] [address] [place], [address] IG% 0.000 Normal 0.0-0.9 [facility] Comment on above: Result Comment: IG% - Immature Granulocytes (promyelocytes, myelocytes and metamyelocytes) > 1% indicates that a LEFT SHIFT is Present. Performed By: #### L 100.0100, L501.9520, L506.1000, L500.4050 #### [facility] [address] [place], [address] Lymphocytes/100 WBC (Bld) 30.0 % Normal 19-41 [facility] Comment on above: Performed By: #### L 100.0100, L501.9520, L506.1000, L500.4050 #### [facility] [address] [place], [address] MCH (RBC) [Entitic mass] 29.0 pg Normal 27.0-32.0 [facility] Comment on above: Performed By: #### L 100.0100, L501.9520, L506.1000, L500.4050 #### [facility] [address] [place], [address] MCHC (RBC) [Mass/Vol] 32.6 g/dL Normal 32-36 [facility] Comment on above: Performed By: #### L 100.0100, L501.9520, L506.1000, L500.4050 #### [facility] [address] [place], [address] MCV (RBC) [Entitic vol] 89.1 fL Normal 81-99 [facility] Comment on above: Performed By: #### L 100.0100, L501.9520, L506.1000, L500.4050 #### [facility] [address] [place], [address] Monocytes/100 WBC (Bld) 7.2 % Normal 0-10 [facility] Comment on above: Performed By: #### L 100.0100, L501.9520, L506.1000, L500.4050 #### [facility] [address] [place], [address] Neutrophils/100 WBC (Bld) 60.9 % Normal 47-70 [facility] Comment on above: Performed By: #### L 100.0100, L501.9520, L506.1000, L500.4050 #### [facility] [address] [place], [address] Nucleated RBC (Bld) [#/Vol] 0 10*3/uL Normal 0-5 [facility] Comment on above: Performed By: #### L 100.0100, L501.9520, L506.1000, L500.4050 #### [facility] [address] [place], [address] Platelet mean volume (Bld) [Entitic vol] 10.3 fL Normal 6.2-12.0 [facility] Comment on above: Performed By: #### L 100.0100, L501.9520, L506.1000, L500.4050 #### [facility] [address] [place], [address] Platelets (Bld) [#/Vol] 223 10*3/uL Normal 150-450 [facility] Comment on above: Performed By: #### L 100.0100, L501.9520, L506.1000, L500.4050 #### [facility] [address] [place], [address] RBC (Bld) [#/Vol] 4.58 10*6/uL Normal 4.2-5.4 [facility] Comment on above: Performed By: #### L 100.0100, L501.9520, L506.1000, L500.4050 #### [facility] [address] [place], [address] RDW SD 45.4 fl High 35.1-43.9 [facility] Comment on above: Performed By: #### L 100.0100, L501.9520, L506.1000, L500.4050 #### [facility] [address] [place], [address] WBC (Bld) [#/Vol] 4.7 10*3/uL Normal 4.4-11.0 [facility] Comment on above: Performed By: #### L 100.0100, L501.9520, L506.1000, L500.4050 #### [facility] [address] [place], [address] Carbon dioxide measurementOr dered By: Romeo Shankar on 06-05-2024 CO2 [Moles/Vol] 25.0 mmol/L 21.0-32.0 [facility] Chloride measurementOrdered By: Romeo Shankar on 06-05-2024 Chloride [Moles/Vol] 110 mmol/L High 98-107 [facility] Comprehensive Metabolic Prof ilon 06-05-2024 Albumin [Mass/Vol] 3.9 g/dL Normal 3.2-5.0 [facility] Comment on above: Performed By: #### L 100.0100, L501.9520, L506.1000, L500.4050 #### [facility] [address] [place], [address] Albumin/Globulin [Mass ratio] 1.0 {ratio} Normal 0.9-2.4 [facility] Comment on above: Performed By: #### L 100.0100, L501.9520, L506.1000, L500.4050 #### [facility] [address] [place], [address] ALK P 65 U/L Normal 45-117 [facility] Comment on above: Performed By: #### L 100.0100, L501.9520, L506.1000, L500.4050 #### [facility] [address] [place], [address] ALT [Catalytic activity/Vol] 40 U/L Normal 13-56 [facility] Comment on above: Performed By: #### L 100.0100, L501.9520, L506.1000, L500.4050 #### [facility] [address] [place], [address] AST [Catalytic activity/Vol] 25 U/L Normal 15-37 [facility] Comment on above: Performed By: #### L 100.0100, L501.9520, L506.1000, L500.4050 #### [facility] [address] [place], [address] Bilirubin [Mass/Vol] 0.40 mg/dL Normal 0.20-1.00 [facility] Comment on above: Result Comment: For patients on eltrombopag therapy, use of [place] TBIL is not recommended. Performed By: #### L 100.0100, L501.9520, L506.1000, L500.4050 #### [facility] [address] [place], [address] BUN/CRE 15.2 RATIO Normal 10-20 [facility] Comment on above: Performed By: #### L 100.0100, L501.9520, L506.1000, L500.4050 #### [facility] [address] [place], [address] CA,Total 9.2 mg/dL Normal 8.5-10.1 [facility] Comment on above: Performed By: #### L 100.0100, L501.9520, L506.1000, L500.4050 #### [facility] [address] [place], [address] Chloride [Moles/Vol] 110 mmol/L High 98-107 [facility] Comment on above: Performed By: #### L 100.0100, L501.9520, L506.1000, L500.4050 #### [facility] [address] [place], [address] CO2 [Moles/Vol] 25.0 mmol/L Normal 21.0-32.0 [facility] Comment on above: Performed By: #### L 100.0100, L501.9520, L506.1000, L500.4050 #### [facility] [address] [place], [address] Creatinine [Mass/Vol] 0.92 mg/dL Normal 0.55-1.02 [facility] Comment on above: Result Comment: The validity of the calculated GFR GFRAA in patients over 70 years has not been determined. Clinical correlation is essential. Performed By: #### L 100.0100, L501.9520, L506.1000, L500.4050 #### [facility] [address] [place], [address] EST GFR - AA 78 mL/min Normal >60 [facility] Comment on above: Result Comment: Afri can [place] GFR Calc Performed By: #### L 100.0100, L501.9520, L506.1000, L500.4050 #### [facility] [address] [place], [address] GAP 8 Normal 5-15 [facility] Comment on above: Performed By: #### L 100.0100, L501.9520, L506.1000, L500.4050 #### [facility] [address] [place], [address] GFR/1.73 sq M.predicted among non-blacks MDRD (S/P/Bld) [Vol rate/Area] 65 mL/min/{1.73_m2} Normal >60 [facility] Comment on above: Result Comment: Non- GFR Calc Performed By: #### L 100.0100, L501.9520, L506.1000, L500.4050 #### [facility] [address] [place], [address] Globulin (S) [Mass/Vol] 3.9 g/dL Normal 2.2-4.2 [facility] Comment on above: Performed By: #### L 100.0100, L501.9520, L506.1000, L500.4050 #### [facility] [address] [place], [address] Glucose [Mass/Vol] 104 mg/dL Normal 74-106 [facility] Comment on above: Result Comment: Fast ing Glucose result from 100 to 125 mg/dL suggests IMPAIRED HOMEOSTASIS per A.D.A. criteria. Performed By: #### L 100.0100, L501.9520, L506.1000, L500.4050 #### [facility] [address] [place], [address] Potassium [Moles/Vol] 3.7 mmol/L Normal 3.5-5.1 [facility] Comment on above: Performed By: #### L 100.0100, L501.9520, L506.1000, L500.4050 #### [facility] [address] [place], [address] Sodium [Moles/Vol] 143 mmol/L Normal 136-145 [facility] Comment on above: Performed By: #### L 100.0100, L501.9520, L506.1000, L500.4050 #### [facility] [address] [place], [address] T PROT 7.8 g/dL Normal 6.4-8.2 [facility] Comment on above: Performed By: #### L 100.0100, L501.9520, L506.1000, L500.4050 #### [facility] [address] [place], [address] Urea nitrogen [Mass/Vol] 14 mg/dL Normal 7-18 [facility] Comment on above: Performed By: #### L 100.0100, L501.9520, L506.1000, L500.4050 #### [facility] [address] [place], [address] Eosinophil percentageOrdered By: Romeo Shankar on 06-05-2024 Eosinophils/100 WBC (Bld) 1.7 % 0-5 [facility] Erythrocyte distribution wid th ratioOrdered By: Romeo Shankar on 06-05-2024 Erythrocyte distribution width (RBC) [Ratio] 14.0 % 11.6-14.6 [facility] Erythrocyte distribution wid th standard deviationOrdered By: Romeo Shankar on 06-05-2024 Erythrocyte distribution width (RBC) [Entitic vol] 45.4 fL High 35.1-43.9 [facility] Estimated glomerular filtrat ion rate (GFR) AmericanOrdered By: Romeo Shankar on 06-05-2024 Estimated GFR (MDRD) Amer 78 mL/min >60 [facility] Comment on above: GFR Calc Glomerular filtration rate ( GFR) estimationOrdered By: Romeo Shankar on 06-05-2024 Estimated GFR (MDRD) Non-Af Amer 65 mL/min >60 [facility] Comment on above: Non- GFR Calc Glucose measurementOrdered B y: Romeo Shankar on 06-05-2024 Glucose [Mass/Vol] 104 mg/dL 74-106 [facility] Comment on above: Fasting Glucose resu lt from 100 to 125 mg/dL suggests IMPAIRED HOMEOSTASIS per A.D.A. criteria. Hematocrit Auto (Bld) [Volum e fraction]Ordered By: Romeo Shankar 06-05-2024 Hematocrit (Bld) [Volume fraction] 40.8 % 37-47 [facility] Hemoglobin measurementOrdere d By: Romeo Shankar 06-05-2024 Hemoglobin (Bld) [Mass/Vol] 13.3 g/dL 12.0-15.0 [facility] Immature granulocytes/100 WB C Auto (Bld)Ordered By: Romeo Shankar 06-05-2024 Immature granulocytes/100 WBC (Bld) 0.000 % 0.0-0.9 [facility] Comment on above: IG% - Immature Granu locytes (promyelocytes, myelocytes and metamyelocytes) > 1% indicates that a LEFT SHIFT is Present. Laboratory - Chemistry and C hemistry - challengeOrdered By: Romeo Shankar 06-05-2024 AST [Catalytic activity/Vol] 25 U/L 15-37 [facility] Lymphocytes Auto (Unsp spec) [#/Vol]Ordered By: Romeo Shankar 06-05-2024 Lymphocytes (Bld) [#/Vol] 1.41 10*3/uL 0.83-4.51 [facility] Lymphocytes/100 WBC Auto (Un sp spec)Ordered By: Romeo Shankar on 06-05-2024 Lymphocytes/100 WBC (Bld) 30.0 % 19-41 [facility] MCV (mean corpuscular volume ) determinationOrdered By: Romeo Shankar on 06-05-2024 MCV (RBC) [Entitic vol] 89.1 fL 81-99 [facility] Mean corpuscular hemoglobin (MCH) determinationOrdered By: Romeo Shankar on 06-05-2024 MCH (RBC) [Entitic mass] 29.0 pg 27.0-32.0 [facility] Mean corpuscular hemoglobin concentration (MCHC) determinationOrdered By: Romeo Shankar on 06-05-2024 MCHC (RBC) [Mass/Vol] 32.6 g/dL 32-36 [facility] Mean platelet volume determi nationOrdered By: Romeo Shankar on 06-05-2024 Platelet mean volume (Bld) [Entitic vol] 10.3 fL 6.2-12.0 [facility] Monocyte percentageOrdered B y: Romeo Shankar on 06-05-2024 Monocytes/100 WBC (Bld) 7.2 % 0-10 [facility] Neutrophil percentageOrdered By: Romeo Shankar on 06-05-2024 Neutrophils/100 WBC (Bld) 60.9 % 47-70 [facility] Nucleated red blood cell per centageOrdered By: Romeo Shankar on 06-05-2024 Nucleated RBC/100 WBC (Bld) [Ratio] 0 % 0-5 [facility] Platelet countOrdered By: Jarrell Shankar on 06-05-2024 Platelets (Bld) [#/Vol] 223 10*3/uL 150-450 [facility] Potassium measurementOrdered By: Romeo Shankar on 06-05-2024 Potassium [Moles/Vol] 3.7 mmol/L 3.5-5.1 [facility] RBC Auto (Bld) [#/Vol]Ordere d By: Romeo Shankar on 06-05-2024 RBC (Bld) [#/Vol] 4.58 10*6/uL 4.2-5.4 [facility] Serum anion gap measurementO rdered By: Romeo Shankar on 06-05-2024 Anion gap [Moles/Vol] 8 mmol/L 5-15 [facility] Serum globulin measurementOr dered By: Romeo Shankar on 06-05-2024 Globulin (S) [Mass/Vol] 3.9 g/dL 2.2-4.2 [facility] Serum or plasma alanine aguirre otransferase (ALT) measurementOrdered By: Romeo Shankar on 06-05-2024 ALT [Catalytic activity/Vol] 40 U/L 13-56 [facility] Serum or plasma albumin tim urement (mass/volume)Ordered By: Romeo Shankar on 06-05-2024 Albumin [Mass/Vol] 3.9 g/dL 3.2-5.0 [facility] Serum or plasma alkaline keith sphatase measurementOrdered By: Romeo Shankar on 06-05-2024 ALP [Catalytic activity/Vol] 65 U/L 45-117 [facility] Serum or plasma calcium tim urement (mass/volume)Ordered By: Romeo Shankra 06-05-2024 Calcium [Mass/Vol] 9.2 mg/dL 8.5-10.1 [facility] Serum or plasma creatinine m easurement (mass/volume)Ordered By: Romeo Shankar on 06-05-2024 Creatinine [Mass/Vol] 0.92 mg/dL 0.55-1.02 [facility] Comment on above: The validity of the calculated GFR & GFRAA in patients over 70 years has not been determined. Clinical correlation is essential. Serum or plasma urea nitroge n measurement (mass/volume)Ordered By: Romeo Shankar on 06-05-2024 Urea nitrogen [Mass/Vol] 14 mg/dL 7-18 [facility] Sodium levelOrdered By: Romeo Shankar on 06-05-2024 Sodium [Moles/Vol] 143 mmol/L 136-145 [facility] TSH QnOrdered By: Romeo Shankar o n 06-05-2024 Thyroid Stimulating Hormone (TSH) 1.200 uIU/mL 0.358-3.740 [facility] Thyroid Stim Hormone (TSH)on 06-05-2024 TSH 1.200 uIU/mL Normal 0.358-3.740 [facility] Comment on above: Performed By: #### L 100.0100, L501.9520, L506.1000, L500.4050 #### [facility] Laboratory [address] [place], [place], [address] Total proteinOrdered By: Romeo Shankar on 06-05-2024 Protein [Mass/Vol] 7.8 g/dL 6.4-8.2 [facility] Vitamin D,25 Hydroxyon 06-05 Vitamin D 25-OH 34.4 ng/mL Normal [facility] Comment on above: Result Comment: Emma min D 25(OH) Status Range Deficiency <20 ng/mL (50nmol/L) Insufficiency 20 - 30 ng/mL (50 - 75 nmol/L) Sufficiency 30 - 100 ng/mL (75 - 250 nmol/L) Toxicity >100 ng/mL (>250 nmol/L) Performed By: #### L 100.0100, L501.9520, L506.1000, L500.4050 #### [facility] [address] [place], [place], [address] White blood cell (WBC) count Ordered By: Romeo Shankar on 06-05-2024 WBC (Bld) [#/Vol] 4.7 10*3/uL 4.4-11.0 [facility] D/C Summary- SPon 04-16-2024 D/C Summary- SP [facility] Speech Pathology [facility] [address] [place] [address] [address] [place] [address] / REHABILITATION SERVICES DISCHARGE SUMMARY MR#: [id number] Acct: [id number] Name: KAIA HALEY Rep #: [id number] : 1955 68 From: Janice Whitmore M.S., ANTIONE-RADIO OFFICER Referring Dr.: Dr. Romeo Shankar MD Status: REG RCR Insurance: MEDICARE PART A B [facility] Discharge Summary Discharged: Discharge: KAIA HALEY is a 68 year old female who was seen for initial cognitive-linguistic evaluation at [facility] on 06/21/23 s/p hemorrhagic stroke. Pt attended 20 additional consecutive sessions following initial evaluation to target attention, word retrieval, divergent naming, problem solving/reasoning, memory, and executive functioning. Following re-evaluation of Pt???s current level of cognitive function, progress reports, self-report, and caregiver report, Pt deemed appropriate for d/c from speech therapy at this time. Pt provided w/home carry over activities to continue targeting complex executive functioning tasks. Pt discharged from speech therapy caseload on this date, 04/16/2024, following no return to therapy after being on hold since last appointment in December. Thank you for allowing me to participate in the care of your Pt. Will reevaluate at Pt???s request following script from physician. 04/16/24 1052 CC: Dr. Romeo Shankar MD RE Signed Normal [facility] 3D MAMM BILAT SCREENon 02-13 3D MAMM BILAT SCREEN [place] [id number] Patient: KAIA HALEY Phone#: : [phone] Age: 68 Gender: F Pt. Type: Out Account: [id number] Location: Ordering: ROMEO SHANKAR Exam Date: 02/14/2024/8:15 Family Phys: ROMEO SHANKAR Charge Code: 591248 Physician: [place] Order #: [id number] Dose#: PROCEDURE: BILATERAL SCREENING BREAST TOMOSYNTHESIS MAMMOGRAM WITH CAD COMPARISON: [facility], 3D BILAT SCREEN, 04/20/2022, 14:05. INDICATIONS: SCREENING BREAST COMPOSITION: Scattered areas fibroglandular density. FINDINGS: DIAGNOSTIC CATEGORY 2--BENIGN FINDING NO CHANGE FROM COMPARISON ASSESSMENT. RIGHT BREAST: No significant suspicious finding. Previously described foci of asymmetry are no longer present. LEFT BREAST: No significant suspicious finding. No significant change has occurred. RECOMMENDATIONS: ROUTINE MAMMOGRAM AND CLINICAL EVALUATION IN 12 MONTHS. PLEASE NOTE: A NORMAL MAMMOGRAM DOES NOT EXCLUDE THE POSSIBILITY OF BREAST CANCER. A CLINICALLY SUSPICIOUS PALPABLE LUMP SHOULD BE BIOPSIED. THIS FACILITY UTILIZES A REMINDER SYSTEM TO ENSURE THAT ALL PATIENTS RECEIVE REMINDER LETTERS FOR APPOINTMENTS. THIS INCLUDES REMINDERS FOR ROUTINE MAMMOGRAMS, DIAGNOSITC MAMMOGRAMS, OR OTHER BREAST IMAGING INTERVENTIONS WHEN APPROPRIATE. THIS PATIENT WILL BE PLACED IN THE APPROPRIATE REMINDER SYSTEM. Dictated by: Maria Elena Ybarra MD on 02/14/2024 at 12:06 Approved by: Maria Elena Ybarra MD on 02/14/2024 at 12:17 Normal [facility] CBC W/Diff, Automatedon 08-3 0-2023 Absolute Lymph 1.28 X10 3/uL Normal 0.83-4.51 [facility] Comment on above: Performed By: #### L 100.0100, L501.9520, L506.1000, L500.4050 #### [facility] Laboratory [address] [place], [address] Absolute Neut 3.1 X10 3/uL Normal 2.0-7.7 [facility] Comment on above: Performed By: #### L 100.0100, L501.9520, L506.1000, L500.4050 #### [facility] [address] [place], [address] Basophils/100 WBC (Bld) 0.4 % Normal 0-1 [facility] Comment on above: Performed By: #### L 100.0100, L501.9520, L506.1000, L500.4050 #### [facility] [address] [place], [address] Eosinophils/100 WBC (Bld) 2.2 % Normal 0-5 [facility] Comment on above: Performed By: #### L 100.0100, L501.9520, L506.1000, L500.4050 #### [facility] [address] [place], [address] Erythrocyte distribution width (RBC) [Ratio] 14.7 % High 11.6-14.6 [facility] Comment on above: Performed By: #### L 100.0100, L501.9520, L506.1000, L500.4050 #### [facility] [address] [place], [address] Hematocrit (Bld) [Volume fraction] 41.5 % Normal 37-47 [facility] Comment on above: Performed By: #### L 100.0100, L501.9520, L506.1000, L500.4050 #### [facility] [address] [place], [address] Hemoglobin (Bld) [Mass/Vol] 13.5 g/dL Normal 12.0-15.0 [facility] Comment on above: Performed By: #### L 100.0100, L501.9520, L506.1000, L500.4050 #### [facility] [address] [place], [address] IG% 0.200 Normal 0.0-0.9 [facility] Comment on above: Result Comment: IG% - Immature Granulocytes (promyelocytes, myelocytes and metamyelocytes) > 1% indicates that a LEFT SHIFT is Present. Performed By: #### L 100.0100, L501.9520, L506.1000, L500.4050 #### [facility] [address] [place], [address] Lymphocytes/100 WBC (Bld) 26.2 % Normal 19-41 [facility] Comment on above: Performed By: #### L 100.0100, L501.9520, L506.1000, L500.4050 #### [facility] [address] [place], [address] MCH (RBC) [Entitic mass] 29.3 pg Normal 27.0-32.0 [facility] Comment on above: Performed By: #### L 100.0100, L501.9520, L506.1000, L500.4050 #### [facility] [address] [place], [address] MCHC (RBC) [Mass/Vol] 32.5 g/dL Normal 32-36 [facility] Comment on above: Performed By: #### L 100.0100, L501.9520, L506.1000, L500.4050 #### [facility] [address] [place], [address] MCV (RBC) [Entitic vol] 90.0 fL Normal 81-99 [facility] Comment on above: Performed By: #### L 100.0100, L501.9520, L506.1000, L500.4050 #### [facility] [address] [place], [address] Monocytes/100 WBC (Bld) 7.8 % Normal 0-10 [facility] Comment on above: Performed By: #### L 100.0100, L501.9520, L506.1000, L500.4050 #### [facility] [address] [place], [address] Neutrophils/100 WBC (Bld) 63.2 % Normal 47-70 [facility] Comment on above: Performed By: #### L 100.0100, L501.9520, L506.1000, L500.4050 #### [facility] [address] [place], [address] Nucleated RBC (Bld) [#/Vol] 0 10*3/uL Normal 0-5 [facility] Comment on above: Performed By: #### L 100.0100, L501.9520, L506.1000, L500.4050 #### [facility] [address] [place], [address] Platelet mean volume (Bld) [Entitic vol] 10.2 fL Normal 6.2-12.0 [facility] Comment on above: Performed By: #### L 100.0100, L501.9520, L506.1000, L500.4050 #### [facility] [address] [place], [address] Platelets (Bld) [#/Vol] 167 10*3/uL Normal 150-450 [facility] Comment on above: Performed By: #### L 100.0100, L501.9520, L506.1000, L500.4050 #### [facility] [address] [place], [address] RBC (Bld) [#/Vol] 4.61 10*6/uL Normal 4.2-5.4 [facility] Comment on above: Performed By: #### L 100.0100, L501.9520, L506.1000, L500.4050 #### [facility] [address] [place], [address] RDW SD 48.4 fl High 35.1-43.9 [facility] Comment on above: Performed By: #### L 100.0100, L501.9520, L506.1000, L500.4050 #### [facility] [address] [place], [address] WBC (Bld) [#/Vol] 4.9 10*3/uL Normal 4.4-11.0 [facility] Comment on above: Performed By: #### L 100.0100, L501.9520, L506.1000, L500.4050 #### [facility] [address] [place], [address] Comprehensive Metabolic [facility] 01-04-2024 Albumin [Mass/Vol] 3.7 g/dL Normal 3.2-5.0 [facility] Comment on above: Performed By: #### L 100.0100, L501.9520, L506.1000, L500.4050 #### [facility] [address] [place], [address] Albumin/Globulin [Mass ratio] 1.0 {ratio} Normal 0.9-2.4 [facility] Comment on above: Performed By: #### L 100.0100, L501.9520, L506.1000, L500.4050 #### [facility] [address] [place], [address] ALK P 82 U/L Normal 45-117 [facility] Comment on above: Performed By: #### L 100.0100, L501.9520, L506.1000, L500.4050 #### [facility] [address] [place], [address] ALT [Catalytic activity/Vol] 33 U/L Normal 13-56 [facility] Comment on above: Performed By: #### L 100.0100, L501.9520, L506.1000, L500.4050 #### [facility] [address] [place], [address] AST [Catalytic activity/Vol] 22 U/L Normal 15-37 [facility] Comment on above: Performed By: #### L 100.0100, L501.9520, L506.1000, L500.4050 #### [facility] [address] [place], [address] Bilirubin [Mass/Vol] 0.60 mg/dL Normal 0.20-1.00 [facility] Comment on above: Result Comment: For patients on eltrombopag therapy, use of Dim[place] TBIL is not recommended. Performed By: #### L 100.0100, L501.9520, L506.1000, L500.4050 #### [facility] [address] [place], [address] BUN/CRE 17.0 RATIO Normal 10-20 [facility] Comment on above: Performed By: #### L 100.0100, L501.9520, L506.1000, L500.4050 #### [facility] [address] [place], [address] CA,Total 9.6 mg/dL Normal 8.5-10.1 [facility] Comment on above: Performed By: #### L 100.0100, L501.9520, L506.1000, L500.4050 #### [facility] [address] [place], [address] Chloride [Moles/Vol] 110 mmol/L High 98-107 [facility] Comment on above: Performed By: #### L 100.0100, L501.9520, L506.1000, L500.4050 #### [facility] [address] [place], [address] CO2 [Moles/Vol] 25.0 mmol/L Normal 21.0-32.0 [facility] Comment on above: Performed By: #### L 100.0100, L501.9520, L506.1000, L500.4050 #### [facility] [address] [place], [address] Creatinine [Mass/Vol] 0.94 mg/dL Normal 0.55-1.02 [facility] Comment on above: Result Comment: The validity of the calculated GFR GFRAA in patients over 70 years has not been determined. Clinical correlation is essential. Performed By: #### L 100.0100, L501.9520, L506.1000, L500.4050 #### [facility] [address] [place], [address] EST GFR - AA 76 mL/min Normal >60 [facility] Comment on above: Result Comment: Afri can Ukrainian GFR Calc Performed By: #### L 100.0100, L501.9520, L506.1000, L500.4050 #### [facility] [address] [place], [address] GAP 6 Normal 5-15 [facility] Comment on above: Performed By: #### L 100.0100, L501.9520, L506.1000, L500.4050 #### [facility] [address] [place], [address] GFR/1.73 sq M.predicted among non-blacks MDRD (S/P/Bld) [Vol rate/Area] 63 mL/min/{1.73_m2} Normal >60 [facility] Comment on above: Result Comment: Non- GFR Calc Performed By: #### L 100.0100, L501.9520, L506.1000, L500.4050 #### [facility] [address] [place], [address] Globulin (S) [Mass/Vol] 3.8 g/dL Normal 2.2-4.2 [facility] Comment on above: Performed By: #### L 100.0100, L501.9520, L506.1000, L500.4050 #### [facility] [address] [place], [address] Glucose [Mass/Vol] 105 mg/dL Normal 74-106 [facility] Comment on above: Result Comment: Fast ing Glucose result from 100 to 125 mg/dL suggests IMPAIRED HOMEOSTASIS per A.D.A. criteria. Performed By: #### L 100.0100, L501.9520, L506.1000, L500.4050 #### [facility] [address] [place], [address] Potassium [Moles/Vol] 4.0 mmol/L Normal 3.5-5.1 [facility] Comment on above: Performed By: #### L 100.0100, L501.9520, L506.1000, L500.4050 #### [facility] [address] [place], [address] Sodium [Moles/Vol] 141 mmol/L Normal 136-145 [facility] Comment on above: Performed By: #### L 100.0100, L501.9520, L506.1000, L500.4050 #### [facility] [address] [place], [address] T PROT 7.5 g/dL Normal 6.4-8.2 [facility] Comment on above: Performed By: #### L 100.0100, L501.9520, L506.1000, L500.4050 #### [facility] [address] [place], [address] Urea nitrogen [Mass/Vol] 16 mg/dL Normal 7-18 [facility] Comment on above: Performed By: #### L 100.0100, L501.9520, L506.1000, L500.4050 #### [facility] [address] [place], [address] Thyroid Stim Hormone (TSH)on 01-04-2024 TSH 1.270 uIU/mL Normal 0.358-3.740 [facility] Comment on above: Performed By: #### L 100.0100, L501.9520, L506.1000, L500.4050 #### [facility] [address] [place], [address] Vitamin D,25 Hydroxyon 01-03 Vitamin D 25-OH 26.2 ng/mL Normal [facility] Comment on above: Result Comment: Emma min D 25(OH) Status Range Deficiency <20 ng/mL (50nmol/L) Insufficiency 20 - 30 ng/mL (50 - 75 nmol/L) Sufficiency 30 - 100 ng/mL (75 - 250 nmol/L) Toxicity >100 ng/mL (>250 nmol/L) Performed By: #### L 100.0100, L501.9520, L506.1000, L500.4050 #### [facility] [address] [place], [address] OT D/C of Non Returning Pton 12-14-2023 OT D/C of Non Returning Pt [facility] Occupational Therapy [address] [place] [address] / REHABILITATION SERVICES DISCHARGE SUMMARY MR#: [id number] Acct: [id number] Name: KAIA HALEY Rep #: [id number] : 1955 68 From: Mariely WARD/Bennie, T Referring Dr.: Dr. Romeo Shankar MD Status: REG RCR Eval Date: Discharge Date: Patient Information Patient Information: KAIA HALEY was seen in my office for initial evaluation on 06/21/23. The following Plan of Care was established for this patient: POC Established Initial Frequency: 2-3x /Week Initial Duration: 6 Weeks Plan: Continue POC: (Insurance-Limit-$23 30) 6 weeks (2-3x week) Anticipated Interventions Anticipated Interventions: A/AAROM/PROM, Strengthening, Sensory Retraining, Fine Motor Coord/Wall[place], Neuro Reeducation, Education re assistive Equipment, Education re Diagnosis and Home Program Last Seen Last Seen: This patient was last seen in our office 07/17/23. Pertinent comments regarding their Occupational therapy will appear below: pt was last seen on 07/17/23 and at this time pt is d/c due to time lapse in services. At this point I will be discontinuing this patient from occupational therapy. I would be happy to see this patient again in the future if found appropriate by the physician. Thank you! BERENICE Arizmendi, T 12/14/23 0940 CC: Dr. Romeo Shankar MD MK Signed Normal [facility] MRI BRAIN WITHOUT CONTRASTon 07-25-2023 MRI BRAIN WITHOUT CONTRAST EXAM: MRI brain without intravenous contrast INDICATION: 68-year-old female with history of stroke who presents for follow-up imaging. TECHNIQUE: Multiplanar, multisequence magnetic resonance imaging of the brain was performed without intravenous contrast on a 3 Awa magnet. COMPARISON: MRI brain 05/31/2023 FINDINGS: Late subacute hematoma involving the high right frontal lobe measuring 1.5 x 1.8 cm, demonstrating T1 and T2 hyperintense signal with surrounding rim of hemosiderin on T2 weighted sequence, similar size with expected evolution relative to previous MRI. Hemosiderin staining reflecting previous hemorrhage involving the paramedian right frontal lobe, also expected evolution relative to previous MRI. Additional scattered foci of parenchymal and sulcal hemosiderin staining reflecting sites of previous hemorrhage. Multiple periventricular and subcortical T2 FLAIR hyperintensities, non-specific, though likely representing sequelae of chronic microvascular disease. Magdaleno-white matter differentiation is otherwise preserved. The ventricular system appears unremarkable. Major intracranial vascular flow voids are intact. Orbits are normal. Mastoid air cells and paranasal sinuses are clear. Scalp and calvarium appear unremarkable. Partially visualized cervical spine appears unremarkable. IMPRESSION: Expected evolution of now late subacute hematoma involving the anterior right frontal lobe relative to previous MRI. Additional evidence of previous scattered hemorrhage throughout the brain suggesting sequelae of cerebral amyloid angiopathy. Mayank Levy M.D. This report has been electronically signed and verified by the Radiologist whose name is printed above. / This report contains privileged and confidential information and is intended solely for the use of the individual or entity to which it is addressed. If you are not the intended recipient of this report, you are hereby notified that any copying, distribution, dissemination or action taken in relation to the contents of this report is strictly prohibited and may be unlawful. If you have received this report in error, please notify the sender immediately at [phone] and permanently delete the original report and destroy any copies or printouts. Normal [facility] Basophil percentageOrdered B y: Romeo Shankar on 07-05-2023 Chloride [Moles/Vol] 107 mmol/L 98-107 [facility] Glucose [Mass/Vol] 101 mg/dL 74-106 [facility] Comment on above: Fasting Glucose resu lt from 100 to 125 mg/dL suggests IMPAIRED HOMEOSTASIS per A.D.A. criteria. Potassium [Moles/Vol] 4.0 mmol/L 3.5-5.1 [facility] Sodium [Moles/Vol] 139 mmol/L 136-145 [facility] Laboratory - Chemistry and C hemistry - challengeOrdered By: Romeo Shankar on 07-05-2023 CO2 [Moles/Vol] 29.0 mmol/L 21.0-32.0 [facility] Urea nitrogen/Creatinine [Mass ratio] 12.0 mg/mg 10-20 [facility] No Panel InformationOrdered By: Romeo Shankar on 07-05-2023 Estimated GFR (MDRD) Amer 71 mL/min >60 [facility] Comment on above: GFR Calc Estimated GFR (MDRD) Non-Af Amer 59 mL/min >60 [facility] Comment on above: Non- GFR Calc Serum or plasma calcium tim urement (mass/volume)Ordered By: Romeo Shankar on 07-05-2023 Calcium [Mass/Vol] 9.3 mg/dL 8.5-10.1 [facility] Serum or plasma creatinine m easurement (mass/volume)Ordered By: Romeo Shankar on 07-05-2023 Creatinine [Mass/Vol] 1.00 mg/dL 0.55-1.02 [facility] Comment on above: The validity of the calculated GFR & GFRAA in patients over 70 years has not been determined. Clinical correlation is essential. Serum or plasma urea nitroge n measurement (mass/volume)Ordered By: Romeo Shankar on 07-05-2023 Urea nitrogen [Mass/Vol] 12 mg/dL 7-18 [facility] Thin prep Papanicolaou smear with manual screeningOrdered By: Romeo Shankar on 07-05-2023 Thin prep Papanicolaou smear with manual screening 3 5-15 [facility] ECGOrdered By: Shanw leung on 06-05-2023 [facility] Work Phone: Absolute lymphocyte countOrd ered By: Romeo Shankar on 06-04-2023 Lymphocytes Auto (Unsp spec) [#/Vol] 1.45 10*3/uL 0.83-4.51 [facility] Automated lymphocyte count a s percentage of total leukocytesOrdered By: Romeo hSankar on 06-04-2023 Lymphocytes/100 WBC Auto (Unsp spec) 25.1 % 19-41 [facility] Basophil percentageOrdered B y: Romeo Shankar on 06-04-2023 Basophils/100 WBC (Bld) 0.3 % 0-1 [facility] Bilirubin [Mass/Vol] 0.40 mg/dL 0.20-1.00 [facility] Comment on above: For patients on eltr ombopag therapy, use of [place] TBIL is not recommended. Chloride [Moles/Vol] 106 mmol/L 98-107 [facility] Cholesterol [Mass/Vol] 143 mg/dL <200 [facility] Comment on above: <200 mg/dL Desirable 200-240 mg/dL Borderline >240 mg/dL High Risk Eosinophils/100 WBC (Bld) 2.4 % 0-5 [facility] Glucose [Mass/Vol] 108 mg/dL 74-106 [facility] Comment on above: Fasting Glucose resu lt from 100 to 125 mg/dL suggests IMPAIRED HOMEOSTASIS per A.D.A. criteria. Hemoglobin (Bld) [Mass/Vol] 12.7 g/dL 12.0-15.0 [facility] Monocytes/100 WBC (Bld) 7.8 % 0-10 [facility] Neutrophils (Bld) [#/Vol] 3.7 10*3/uL 2.0-7.7 [facility] Neutrophils/100 WBC (Bld) 64.2 % 47-70 [facility] Potassium [Moles/Vol] 3.9 mmol/L 3.5-5.1 [facility] Protein [Mass/Vol] 7.6 g/dL 6.4-8.2 [facility] Sodium [Moles/Vol] 140 mmol/L 136-145 [facility] Triglyceride [Mass/Vol] 128 mg/dL <199 [facility] Comment on above: The drugs N-Acetylcy steine and Metamizole may falsely depress this assay.Serum Triglycerides Reference Interval Normal <150 mg/dL Borderline high 150 - 199 mg/dL High 200 - 499 mg/dL Very High > or = 500 mg/dL WBC (Bld) [#/Vol] 5.8 10*3/uL 4.4-11.0 [facility] Determination of erythrocyte mean corpuscular volume (MCV)Ordered By: Romeo Shankar on 06-04-2023 MCV (RBC) [Entitic vol] 89.7 fL 81-99 W [facility] Erythrocyte distribution wid th ratioOrdered By: Romeo Shankar on 06-04-2023 Erythrocyte distribution width (RBC) [Ratio] 14.0 % 11.6-14.6 [facility] Erythrocyte distribution wid th standard deviationOrdered By: Romeo Shankar on 06-04-2023 Erythrocyte distribution width (RBC) [Entitic vol] 46.2 fL 35.1-43.9 [facility] Hematocrit Auto (Bld) [Volum e fraction]Ordered By: Romeo Shankar on 06-04-2023 Hematocrit (Bld) [Volume fraction] 39.4 % 37-47 [facility] Immature granulocytes/100 WB C Auto (Bld)Ordered By: Romeo Shankar on 06-04-2023 Immature granulocytes/100 WBC (Bld) 0.200 % 0.0-0.9 [facility] Comment on above: IG% - Immature Granu locytes (promyelocytes, myelocytes and metamyelocytes) > 1% indicates that a LEFT SHIFT is Present. Laboratory - Chemistry and C hemistry - challengeOrdered By: Romeo Shankar on 06-04-2023 Albumin/Globulin [Mass ratio] 0.9 {ratio} 0.9-2.4 [facility] ALP [Catalytic activity/Vol] 80 U/L 45-117 [facility] ALT [Catalytic activity/Vol] 33 U/L 13-56 [facility] Cholesterol in HDL (Body fld) [Mass/Vol] 58 mg/dL >40 [facility] Comment on above: The drugs N-Acetylcy steine and Metamizole may falsely depress this assay. Reference Range HDL <40 mg/dL Low HDL Cholesterol HDL >or= 60 mg/dL High HDL Cholesterol Cholesterol in LDL (Body fld) [Moles/Vol] 59 mg/dL 0-130 [facility] Cholesterol in VLDL Calc [Moles/Vol] 26 mg/dL 5-40 [facility] CO2 [Moles/Vol] 29.0 mmol/L 21.0-32.0 [facility] Globulin (S) [Mass/Vol] 3.9 g/dL 2.2-4.2 W [facility] Urea nitrogen/Creatinine [Mass ratio] 15.6 mg/mg 10-20 [facility] Laboratory - Hematology and Cell countsOrdered By: Romeo Shankar on 06-04-2023 MCH (RBC) [Entitic mass] 28.9 pg 27.0-32.0 [facility] MCHC (RBC) [Mass/Vol] 32.2 g/dL 32-36 [facility] Nucleated RBC/100 WBC (Bld) [Ratio] 0 % 0-5 [facility] Platelets (Bld) [#/Vol] 269 10*3/uL 150-450 [facility] No Panel InformationOrdered By: Romeo Shankar on 06-04-2023 Estimated GFR (MDRD) Amer 64 mL/min >60 [facility] Comment on above: GFR Calc Estimated GFR (MDRD) Non-Af Amer 53 mL/min >60 [facility] Comment on above: Non- GFR Calc Hepatitis C Antibody Non-Reactive Nonreactive W [facility] Comment on above: Non Reactive: < 0.8 Equivocal: >/= 0.8 to < 1.0 Reactive: >/= 1.0The CDC recommends that a reactive/equivocal HCV antibody result be followed up by the HCV Nucleic Acid Amplificationtest (265426) Vitamin D 25-Hydroxy 37.4 ng/mL [facility] Comment on above: Vitamin D 25(OH) Sta tus Range Deficiency <20 ng/mL (50nmol/L) Insufficiency 20 - 30 ng/mL (50 - 75 nmol/L) Sufficiency 30 - 100 ng/mL (75 - 250 nmol/L) Toxicity >100 ng/mL (>250 nmol/L) Platelet mean volume Shawn-Ec ker (Bld) [Entitic vol]Ordered By: Romeo Shankar on 06-04-2023 Platelet mean volume (Bld) [Entitic vol] 10.2 fL 6.2-12.0 [facility] RBC Auto (Bld) [#/Vol]Ordere d By: Romeo Shankar on 06-04-2023 RBC (Bld) [#/Vol] 4.39 10*6/uL 4.2-5.4 [facility] Serum or plasma calcium tim urement (mass/volume)Ordered By: Romeo Shankar on 06-04-2023 Calcium [Mass/Vol] 9.1 mg/dL 8.5-10.1 [facility] Serum or plasma creatinine m easurement (mass/volume)Ordered By: Romeo Shankar on 06-04-2023 Creatinine [Mass/Vol] 1.09 mg/dL 0.55-1.02 [facility] Comment on above: The validity of the calculated GFR & GFRAA in patients over 70 years has not been determined. Clinical correlation is essential. Serum or plasma thyroid stim ulating hormone (TSH) measurement (units/volume)Ordered By: Romeo Shankar on 06-04-2023 TSH Qn 2.05 uIU/mL 0.358-3.74 [facility] Serum or plasma urea nitroge n measurement (mass/volume)Ordered By: Romeo Shankar on 06-04-2023 Urea nitrogen [Mass/Vol] 17 mg/dL 7-18 [facility] Thin prep Papanicolaou smear with manual screeningOrdered By: Romeo Shankar on 06-04-2023 Thin prep Papanicolaou smear with manual screening 3.7 g/dL 3.2-5.0 [facility] Thin prep Papanicolaou smear with manual screening 29 U/L 15-37 [facility] Thin prep Papanicolaou smear with manual screening 5 5-15 [facility] CALCIUMon 06-01-2023 Calcium [Mass/Vol] 8.7 mg/dL Normal 8.6-10.5 [facility] Comment on above: Performed By: #### P TPTT #### [facility] (DEFAULT) [address] [address] Calcium [Mass/Vol] 8.7 mg/dL 8.6 - 10. 5 mg/dL [facility] CBC AND ELECTRONIC DIFFon Abs Baso Auto < Normal 0.00-0.15 [facility] Comment on above: Performed By: #### P TPTT #### [facility] (DEFAULT) [address] [place] [address] Basophils/100 WBC (Bld) 0.1 % Normal [facility] Comment on above: Performed By: #### P TPTT #### [facility] (DEFAULT) [address] [place] [address] DIFF STATUS Electronic Differential Normal [facility] Comment on above: Performed By: #### P TPTT #### [facility] (DEFAULT) [address] [place] [address] Eosinophils (Bld) [#/Vol] 0.09 10*3/uL Normal 0.00-0.42 [facility] Comment on above: Performed By: #### P TPTT #### [facility] (DEFAULT) [address] [address] Eosinophils/100 WBC (Bld) 1.2 % Normal [facility] Comment on above: Performed By: #### P TPTT #### [facility] (DEFAULT) [address] [address] Hematocrit (Bld) [Volume fraction] 38.8 % Normal 34.9-44.3 [facility] Comment on above: Performed By: #### P TPTT #### [facility] (DEFAULT) [address] [address] Hemoglobin (Bld) [Mass/Vol] 12.5 g/dL Normal 11.4-15.2 [facility] Comment on above: Performed By: #### P TPTT #### [facility] (DEFAULT) [address] [address] Immature Grans % 0.3 % Normal [facility] Comment on above: Performed By: #### P TPTT #### [facility] (DEFAULT) [address] [address] Immature Grans Absolute < Normal <=0.08 [facility] Comment on above: Performed By: #### P TPTT #### [facility] (DEFAULT) [address] [address] Lymphocytes (Bld) [#/Vol] 1.59 10*3/uL Normal 1.16-3.51 [facility] Comment on above: Performed By: #### P TPTT #### [facility] (DEFAULT) [address] [address] Lymphocytes/100 WBC (Bld) 21.9 % Normal [facility] Comment on above: Performed By: #### P TPTT #### [facility] (DEFAULT) [address] [address] MCV (RBC) [Entitic vol] 90.0 fL Normal 79.6-97.7 [facility] Comment on above: Performed By: #### P TPTT #### [facility] (DEFAULT) [address] [address] Mean Cell Hgb 29.0 pg Normal 25.9-33.9 [facility] Comment on above: Performed By: #### P TPTT #### [facility] (DEFAULT) [address] [address] Mean Cell Hgb Conc 32.2 g/dL Normal 31.4-35.9 [facility] Comment on above: Performed By: #### P TPTT #### [facility] (DEFAULT) [address] [address] Monocytes (Bld) [#/Vol] 0.71 10*3/uL Normal 0.22-0.87 [facility] Comment on above: Performed By: #### P TPTT #### [facility] (DEFAULT) [address] [address] Monocytes/100 WBC (Bld) 9.8 % Normal [facility] Comment on above: Performed By: #### P TPTT #### [facility] (DEFAULT) [address] [address] Nucleated RBC 0.0 /100 WBC Normal <=0.2 [facility] Comment on above: Performed By: #### P TPTT #### [facility] (DEFAULT) [address] [address] Platelet mean volume (Bld) [Entitic vol] 9.8 fL Normal 8.5-12.2 [facility] Comment on above: Performed By: #### P TPTT #### [facility] (DEFAULT) [address] [address] Platelets (Bld) [#/Vol] 205 10*3/uL Normal 150-393 [facility] Comment on above: Performed By: #### P TPTT #### [facility] (DEFAULT) [address] [place] [address] RBC (Bld) [#/Vol] 4.31 10*6/uL Normal 3.91-5.04 [facility] Comment on above: Performed By: #### P TPTT #### [facility] (DEFAULT) [address] [place] [address] RBC Distribution 14.4 % Normal 10.8-14.9 [facility] Comment on above: Performed By: #### P TPTT #### [facility] (DEFAULT) [address] [place] [address] Segs + Bands Auto 66.7 % Normal [facility] Comment on above: Performed By: #### P TPTT #### [facility] (DEFAULT) [address] [place] [address] Segs + Bands,Absolute Auto 4.84 K/uL Normal 1.64-7.28 [facility] Comment on above: Performed By: #### P TPTT #### [facility] (DEFAULT) [address] [place] [address] WBC (Bld) [#/Vol] 7.26 10*3/uL Normal 3.99-11.19 [facility] Comment on above: Performed By: #### P TPTT #### [facility] (DEFAULT) [address] [place] [address] Basophils (Bld) [#/Vol] K/uL 0.00 - 0.15 K/uL [facility] Basophils/100 WBC (Bld) 0.1 % [facility] Differential cell count method Nom (Bld) Electronic Differential [facility] Eosinophils (Bld) [#/Vol] 0.09 10*3/uL 0.00 - 0.42 K/uL [facility] Eosinophils/100 WBC (Bld) 1.2 % [facility] Erythrocyte distribution width (RBC) [Ratio] 14.4 % 10.8 - 14.9 % [facility] Hematocrit (Bld) [Volume fraction] 38.8 % 34.9 - 44.3 % [facility] Hemoglobin (Bld) [Mass/Vol] 12.5 g/dL 11.4 - 15.2 g/dL [facility] Immature granulocytes (Bld) [#/Vol] K/uL NINF - 0.08 K/uL [facility] Immature granulocytes/100 WBC (Bld) 0.3 % [facility] Lymphocytes (Bld) [#/Vol] 1.59 10*3/uL 1.16 - 3.51 K/uL [facility] Lymphocytes/100 WBC (Bld) 21.9 % [facility] MCH (RBC) [Entitic mass] 29.0 pg 25.9 - 33.9 pg [facility] MCHC (RBC) [Mass/Vol] 32.2 g/dL 31.4 - 35.9 g/dL [facility] MCV (RBC) [Entitic vol] 90.0 fL 79.6 - 97.7 fL [facility] Monocytes (Bld) [#/Vol] 0.71 10*3/uL 0.22 - 0.87 K/uL [facility] Monocytes/100 WBC (Bld) 9.8 % [facility] Neutrophils (Bld) [#/Vol] 4.84 10*3/uL 1.64 - 7.28 K/uL [facility] Nucleated RBC/100 WBC (Bld) [Ratio] 0.0 % [facility] Platelet mean volume (Bld) [Entitic vol] 9.8 fL 8.5 - 12.2 fL [facility] Platelets (Bld) [#/Vol] 205 10*3/uL 150 - 393 K /uL [facility] RBC (Bld) [#/Vol] 4.31 10*6/uL [facility] Segmented neutrophils/100 WBC (Bld) 66.7 % [facility] WBC (Bld) [#/Vol] 7.26 10*3/uL 3.99 - 11. 19 K/uL [facility] CHEM 7 (LYTES,BUN,CREA,GLUC) on 06-01-2023 Anion gap [Moles/Vol] 14 mmol/L Normal 7-17 [facility] Comment on above: Performed By: #### T YPEC #### [facility] (DEFAULT) [address] [place] [address] Chloride [Moles/Vol] 105 mmol/L Normal 98-108 [facility] Comment on above: Performed By: #### T YPEC #### [facility] (DEFAULT) [address] [address] CO2 [Moles/Vol] 26 mmol/L Normal 21-31 [facility] Comment on above: Performed By: #### T YPEC #### [facility] (DEFAULT) [address] [place] [address] Creatinine [Mass/Vol] 0.93 mg/dL Normal 0.50-1.20 [facility] Comment on above: Performed By: #### T YPEC #### [facility] (DEFAULT) [address] [place] [address] GFR/1.73 sq M.predicted among non-blacks MDRD (S/P/Bld) [Vol rate/Area] 68 mL/min/{1.73_m2} Normal >=60 [facility] Comment on above: Result Comment: Repo rted eGFR is based on the CKD-EPI 2020 equation using creatinine, age, and sex. Performed By: #### T YPEC #### [facility] (DEFAULT) [address] [place] [address] Glucose [Mass/Vol] 102 mg/dL High 70-99 [facility] Comment on above: Performed By: #### T YPEC #### [facility] (DEFAULT) [address] [place] [address] Osmolality [Osmolality] 294 mosm/kg Normal 278-305 [facility] Comment on above: Performed By: #### T YPEC #### [facility] (DEFAULT) [address] [place] [address] Potassium [Moles/Vol] 3.7 mmol/L Normal 3.5-5.0 [facility] Comment on above: Performed By: #### T YPEC #### [facility] (DEFAULT) [address] [address] Sodium [Moles/Vol] 141 mmol/L Normal 135-145 [facility] Comment on above: Performed By: #### T YPEC #### [facility] (DEFAULT) [address] [address] Urea nitrogen [Mass/Vol] 13 mg/dL Normal 7-25 [facility] Comment on above: Performed By: #### T YPEC #### [facility] (DEFAULT) [address] [place] [address] Urea nitrogen/Creatinine [Mass ratio] 14 mg/mg Normal [facility] Comment on above: Performed By: #### T YPEC #### [facility] (DEFAULT) [address] [address] CHEM 7 (LYTES,BUN,CREA,GLUC) Ordered By: Katerina Cramer on 06-01-2023 Anion gap [Moles/Vol] 14 mmol/L 7 - 17 mmol/L [facility] Chloride [Moles/Vol] 105 mmol/L 98 - 10 8 mmol/L [facility] CO2 [Moles/Vol] 26 mmol/L 21 - 31 mmol/L [facility] Creatinine [Mass/Vol] 0.93 mg/dL 0.50 - 1.20 mg/dL [facility] eGFR, CKD-EPI, Female 68 - PINF [facility] Comment on above: Reported eGFR is bas ed on the CKD-EPI 2020 equation using creatinine, age, and sex. Glucose [Mass/Vol] 102 mg/dL High 70 - 99 mg/dL [facility] Interpretation and review of laboratory results Abnormal [facility] Osmolality Calc [Osmolality] 294 [facility] Potassium [Moles/Vol] 3.7 mmol/L 3.5 - 5.0 mmol/L [facility] Sodium [Moles/Vol] 141 mmol/L 135 - 145 mmol/L [facility] Urea nitrogen [Mass/Vol] 13 mg/dL 7 - 25 mg/dL [facility] Urea nitrogen/Creatinine [Mass ratio] 14 mg/mg [facility] Cardiac echo study Procedure Ordered By: Joan Love on 06-01-2023 Ao peak sharyn 1.32 m/s [facility] Work Phone: Ao SOV index 1.35 cm/m2 [facility] Work Phone: Ao STJ index 1.65 cm/m2 [facility] Work Phone: AV LVOT peak gradient 5 mmHg [facility] Work Phone: AV peak gradient 7 mmHG [facility] Work Phone: AV Velocity Ratio 0.83 [facility] Work Phone: PAULA (continuity Vmax) 3.08 cm2 [facility] Work Phone: PAULA index (continuity Vmax) 1.49 m/s [facility] Work Phone: Avg e' pk sharyn 0.09 m/s [facility] Work Phone: Avg E/e' ratio 7.56 [facility] Work Phone: Body surface area Derived from formula 2.07 m2 [facility] Work Phone: BP EF 59 % [facility] Work Phone: DI (Vmax) 0.83 [facility] Work Phone: E wave decelartion time 145.[address] [facility] Work Phone: e' lateral pk sharyn 0.0859 [facility]: e' lateral pk sharyn 0.09 m/s [facility] Work Phone: e' septal pk sharyn 0.1004 [facility]: e' septal pk sharyn 0.10 m/s [facility] Work Phone: E/A ratio 1.56 [facility] Work Phone: [facility]: E/e' septal [facility] 6.97 [facility] Work Phone: EF SP 2CH 59 [facility] Work Phone: EF SP 4CH 59 [facility] Work Phone: FS 35 % 28 - 44 % [facility] Work Phone: IVS 0.87 cm [facility] Work Phone: LA ESV SP 2CH (MOD) 63 mL [facility] Work Phone: LA ESV SP 4CH (MOD) 66 mL [facility] Work Phone: LA size 4.06 cm [facility] Work Phone: LEFT ATRIAL DIAMETER INDEX 1.96 cm/m2 [facility] Work Phone: LV EDV BP 112 mL [facility] Work Phone: LV EDV SP 2CH 104 mL [facility] Work Phone: LV EDV SP 4CH 114 mL [facility] Work Phone: LV ESV BP 46 mL [facility] Work Phone: LV ESV SP 2CH 43 mL [facility] Work Phone: LV ESV SP 4CH 47 mL [facility] Work Phone: LV mass 156.45 g [facility] Work Phone: LV Mass Index 75.6 g/m2 [facility] Work Phone: LV RWT 0.40 [facility] Work Phone: LV stroke volume BP (ml) 66 mL [facility] Work Phone: LV stroke volume index BP 31.88 mL/m2 [facility] Work Phone: LVIDD 4.86 cm [facility] Work Phone: LVIDS 3.15 cm [facility] Work Phone: LVOT area 3.70 cm2 [facility] Work Phone: LVOT diameter 2.17 cm [facility] Work Phone: LVOT peak sharyn 1.10 m/s [facility] Work Phone: LVOT peak VTI 23.94 cm [facility] Work Phone: LVOT stroke [facility] 88 [facility]3 [facility] Work [facility] LVOT stroke volume index 42.75 ml/m2 [facility] Work Phone: MV pk A sharyn 0.45 m/s [facility] Work Phone: MV pk E sharyn 0.70 m/s [facility] Work Phone: [facility] ECHO LV BIPLANE SYSTOLIC VOLUME INDEX 22.22 mL/m2 [facility] Work Phone: [facility] ECHO LV BP DIASTOLIC VOLUME INDEX 54.11 [facility] Work [facility]: PV peak gradient 3 mmHg [facility] Work Phone: PV PK SHARYN 0.90 m/s [facility] Work Phone: PW 0.98 cm [facility] Work Phone: RA vol index 4CH (MOD) 36.23 mL/m2 [facility] Work Phone: Right atrium volume 4 chamber method of disks 75 mL [facility] Work Phone: RV Area diastolic 28.60 cm2 [facility] Work Phone: RV Area systolic 17.00 cm2 [facility] Work Phone: RV basal diam 4.70 cm [facility] Work Phone: RV Fractional area change 40.6 % [facility] Work Phone: RV long diam 9.20 cm [facility] Work Phone: RV mid diam 3.60 cm [facility] Work Phone: RV S' 11.00 cm/s [facility] Work Phone: RVOT peak gradient 2 [facility] Work [facility]: RVOT peak sharyn 0.63 m/s [facility] Work Phone: RVOT peak VTI 13.20 cm [facility] Work Phone: Sinus 2.79 cm [facility] Work Phone: STJ 3.42 cm [facility] Work Phone: Stroke Volume 88 cm/mL [facility] Work Phone: Stroke volume index [facility] Work [facility]: TAPSE 2.88 cm [facility] Work Phone: TR pk grad 17 mmHg [facility] Work Phone: TR pk sharyn 2.09 m/s [facility] Work Phone: [facility] Work Phone: Cardiac echo study Procedure on 06-01-2023 Left Ventricle: Chamber size is normal. Normal wall thickness. Normal global systolic function. Regional wall motion is normal. Ejection fraction is normal (60 - 65%). Diastolic function is normal. Right Ventricle: Chamber size is normal. Normal wall thickness. Segmental wall motion is normal. Systolic function is normal. Left Atrium: Chamber size is normal. Aortic Valve: Aortic valve not well visualized. Leaflet mobility is normal. No regurgitation. No stenosis. Mitral Valve: Normal appearing leaflets. Leaflet mobility is normal. Trace regurgitation. No valve stenosis. Tricuspid Valve: Normal leaflets. Leaflet mobility is normal. Mild regurgitation. No stenosis. No evidence of [id number] shunt with agitated saline contrast (NEGATIVE bubble study). Left Ventricle Chamber size is normal. Normal wall thickness. Normal global systolic function. Regional wall motion is normal. Ejection fraction is normal (60 - 65%). Diastolic function is normal. Right Ventricle Chamber size is normal. Normal wall thickness. Segmental wall motion is normal. Systolic function is normal. Left Atrium Chamber size is normal. Right Atrium Chamber size is enlarged. IVC/SVC Unable to assess inferior vena cava. Mitral Valve Normal appearing leaflets. Leaflet mobility is normal. Trace regurgitation. No valve stenosis. Tricuspid Valve Normal leaflets. Leaflet mobility is normal. Mild regurgitation. No stenosis. Aortic Valve Aortic valve not well visualized. Leaflet mobility is normal. No regurgitation. No stenosis. Pulmonic Valve Pulmonic valve not well visualized. No regurgitation. No stenosis. Pericardium Appears normal. No pericardial effusion. Septum The atrial septum is normal. No evidence of patent foramen ovale determined by color flow and saline contrast. Aorta No dilation to extent seen. Study Details A complete echocardiography study was performed. Overall study quality was fair. Imaging system used: [employer]. Indications Indications for study: stroke/tia. Wall Scoring Score Index: 1.00 The left ventricular wall motion is normal. [facility] Radiology Study observation (narrative) [facility] ECHOCARDIOGRAMon 06-01-2023 Echocardiography ? Left Ventricle: Chamber size is normal. Normal wall thickness. Normal global systolic function. Regional wall motion is normal. Ejection fraction is normal (60 - 65%). Diastolic function is normal. ? Right Ventricle: Chamber size is normal. Normal wall thickness. Segmental wall motion is normal. Systolic function is normal. ? Left Atrium: Chamber size is normal. ? Aortic Valve: Aortic valve not well visualized. Leaflet mobility is normal. No regurgitation. No stenosis. ? Mitral Valve: Normal appearing leaflets. Leaflet mobility is normal. Trace regurgitation. No valve stenosis. ? Tricuspid Valve: Normal leaflets. Leaflet mobility is normal. Mild regurgitation. No stenosis. ? No evidence of [id number] shunt with agitated saline contrast (NEGATIVE bubble study). Table formatting from the original result was not included. Images from the original result were not included. Facility [facility] Patient Information Patient Name Kaia Haley Legal Sex Female Indication for Exam Priority: Urgent Dx: Cerebrovascular accident (CVA), unspecified mechanism [I63.9 (ICD-10-CM)] Order Question Reason for Exam stroke w/u for intraparenchymal hemorrhage Interpretation Summary ? Left Ventricle: Chamber size is normal. Normal wall thickness. Normal global systolic function. Regional wall motion is normal. Ejection fraction is normal (60 - 65%). Diastolic function is normal. ? Right Ventricle: Chamber size is normal. Normal wall thickness. Segmental wall motion is normal. Systolic function is normal. ? Left Atrium: Chamber size is normal. ? Aortic Valve: Aortic valve not well visualized. Leaflet mobility is normal. No regurgitation. No stenosis. ? Mitral Valve: Normal appearing leaflets. Leaflet mobility is normal. Trace regurgitation. No valve stenosis. ? Tricuspid Valve: Normal leaflets. Leaflet mobility is normal. Mild regurgitation. No stenosis. ? No evidence of [id number] shunt with agitated saline contrast (NEGATIVE bubble study). Findings Left Ventricle Chamber size is normal. Normal wall thickness. Normal global systolic function. Regional wall motion is normal. Ejection fraction is normal (60 - 65%). Diastolic function is normal. Right Ventricle Chamber size is normal. Normal wall thickness. Segmental wall motion is normal. Systolic function is normal. Left Atrium Chamber size is normal. Right Atrium Chamber size is enlarged. Septum The atrial septum is normal. No evidence of patent foramen ovale determined by color flow and saline contrast. Mitral Valve Normal appearing leaflets. Leaflet mobility is normal. Trace regurgitation. No valve stenosis. Aortic Valve Aortic valve not well visualized. Leaflet mobility is normal. No regurgitation. No stenosis. Tricuspid Valve Normal leaflets. Leaflet mobility is normal. Mild regurgitation. No stenosis. Pulmonic Valve Pulmonic valve not well visualized. No regurgitation. No stenosis. Aorta No dilation to extent seen. Pericardium Appears normal. No pericardial effusion. IVC/SVC Unable to assess inferior vena cava. Reading Providers Reading Role Read Date Joan Love MD [place] 06/01/2023 Wall Scoring Score Index: 1.00 The left ventricular wall motion is normal. Left Heart Measurements LV - Systole LVIDD 4.86 cm IVS 0.87 cm LVIDS 3.15 cm PW 0.98 cm LV RWT 0.4 LV Mass Index 75.6 g/m2 LV EDV BP 112 mL LV ESV BP 46 mL BP EF 59 % LV stroke volume BP (ml) 66 mL LV stroke volume index BP 31.88 mL/m2 LV - Diastole MV pk E sharyn 0.7 m/s MV pk A sharyn 0.45 m/s E/A ratio 1.56 e' septal pk sharyn 0.1 m/s e' lateral pk sharyn 0.09 m/s Avg e' pk sharyn 0.09 m/s E/e' septal ratio 6.97 E/e' lateral ratio 8.15 Avg E/e' ratio 7.56 LV - HCM AV LVOT peak gradient 5 mmHg Left Atrium LA size 4.06 cm LA ESV SP 4CH (MOD) 66 mL LA ESV SP 2CH (MOD) 63 mL Right Heart Measurements RV - 2D RV basal diam 4.7 cm RV mid diam 3.6 cm RV long diam 9.2 cm RV Area diastolic 28.6 cm2 RV Area systolic 17 cm2 RV Fractional area change 40.6 % RV - Doppler TAPSE 2.88 cm RV S' 11 cm/s Right Atrium RA vol index 4CH (MOD) 36.23 mL/m2 Great Vessels Aortic Root - End Diastolic Sinus 2.79 cm STJ 3.42 cm Doppler Measurements - Aortic Valve Stenosis LVOT diameter 2.17 cm LVOT area 3.7 cm2 LVOT peak sharyn 1.1 m/s LVOT peak VTI 23.94 cm Stroke Volume 88 cm/mL Stroke volume index 43 Ao peak sharyn 1.32 m/s AV peak gradient 7 mmHG DI (Vmax) 0.83 PAULA (continuity Vmax) 3.08 cm2 PAULA index (continuity Vmax) 1.49 m/s LVOT stroke volume 88 cm3 LVOT stroke volume index 42.75 ml/m2 Doppler Measurements - Mitral Valve Stenosis MV pk E sharyn 0.7 (more content not included)... Normal [facility] HEPATIC FUNCTION PANELon Albumin [Mass/Vol] 4.1 g/dL Normal 3.5-5.0 [facility] Comment on above: Performed By: #### P TPTT #### [facility] (DEFAULT) [address] [address] ALP [Catalytic activity/Vol] 62 U/L Normal 32-126 [facility] Comment on above: Performed By: #### P TPTT #### [facility] (DEFAULT) [address] [address] ALT [Catalytic activity/Vol] 16 U/L Normal 9-48 [facility] Comment on above: Performed By: #### P TPTT #### [facility] (DEFAULT) [address] [place] [address] AST [Catalytic activity/Vol] 19 U/L Normal 10-39 [facility] Comment on above: Performed By: #### P TPTT #### [facility] (DEFAULT) [address] [place] [address] Bilirubin [Mass/Vol] 0.5 mg/dL Normal <1.5 [facility] Comment on above: Performed By: #### P TPTT #### [facility] (DEFAULT) [address] [place] [address] Bilirubin.indirect [Mass/Vol] 0.1 mg/dL Normal <0.3 [facility] Comment on above: Performed By: #### P TPTT #### [facility] (DEFAULT) [address] [place] [address]199 Protein [Mass/Vol] 7.2 g/dL Normal 6.4-8.3 [facility] Comment on above: Performed By: #### P TPTT #### [facility] (DEFAULT) [address] [place] [address] Albumin [Mass/Vol] 4.1 g/dL 3.5 - 5.0 g/dL [facility] ALP [Catalytic activity/Vol] 62 U/L 32 - 126 U/L [facility] ALT [Catalytic activity/Vol] 16 U/L 9 - 48 U/L [facility] AST [Catalytic activity/Vol] 19 U/L 10 - 39 U/L [facility] Bilirubin [Mass/Vol] 0.5 mg/dL NINF - 1.5 mg/dL [facility] Bilirubin.direct [Mass/Vol] 0.1 mg/dL NINF - 0.3 mg/dL [facility] Protein [Mass/Vol] 7.2 g/dL 6.4 - 8.3 g/dL [facility] MAGNESIUMon 06-01-2023 Magnesium [Mass/Vol] 2.2 mg/dL Normal 1.6-2.6 [facility] Comment on above: Performed By: #### P TPTT #### [facility] (DEFAULT) [address] [place] [address] Magnesium [Mass/Vol] 2.2 mg/dL 1.6 - 2 .6 mg/dL [facility] No Panel Informationon 06-01 Interpretation and review of laboratory results Normal [facility] PHOSPHATE, INORGANICon 06-01 Phosphorous 4.0 mg/dL Normal 2.2-4.6 [facility] Comment on above: Performed By: #### P TPTT #### [facility] (DEFAULT) [address] [place] [address] 60080 Phosphate [Mass/Vol] 4.0 mg/dL 2.2 - 4 .6 mg/dL [facility] PLATELET COUNTon 06-01-2023 Interpretation and review of laboratory results Normal [facility] Platelet mean volume (Bld) [Entitic vol] 9.8 fL 8.5 - 12.2 fL [facility] Platelets (Bld) [#/Vol] 205 10*3/uL 150 - 393 K /uL [facility] PT,INR,PTTon 06-01-2023 aPTT Coag (Bld) [Time] 25.8 s Normal 24.0-34.3 [facility] Comment on above: Performed By: #### P TPTT #### [facility] (DEFAULT) [address] [place] [address] INR Coag (PPP) [Relative time] 1.0 {INR} Normal 0.9-1.1 [facility] Comment on above: Performed By: #### P TPTT #### [facility] (DEFAULT) [address] [place] [address] PT Coag (PPP) [Time] 12.7 s Normal 11.9-14.2 [facility] Comment on above: Performed By: #### P TPTT #### [facility] (DEFAULT) [address] [place] [address] PT,INR,PTTOrdered By: Henry Nguyen on 06-01-2023 aPTT Coag (PPP) [Time] 25.8 s [facility] INR Coag (Bld) [Relative time] 1.0 {INR} 0.9 - 1.1 [facility] Interpretation and review of laboratory results Normal [facility] PT Coag (PPP) [Time] 12.7 s [facility] T4 FREEon 06-01-2023 Free T4 [Mass/Vol] 1.04 ng/dL 0.89 - 1. 76 ng/dL [facility] Interpretation and review of laboratory results Normal [facility] Free T4 [Mass/Vol] 1.04 ng/dL Normal 0.89-1.76 [facility] Comment on above: Performed By: #### T YPEC #### [facility] (DEFAULT) [address] [place] [address] TSH W/FT4 REFLEXon 4 TSH 5.251 uIU/mL High 0.550-4.780 [facility] Comment on above: Performed By: #### T SHQR #### [facility] (DEFAULT) [address] [place] [address] Interpretation and review of laboratory results Abnormal [facility] TSH Qn 5.251 m[IU]/L High [facility] ABORH TYPE RECONFIRMATIONon 05-31-2023 ABO/RH(D) TYPE Positive Normal [facility] Comment on above: Performed By: #### T YPEC #### [facility] (DEFAULT) [address] [place] [address] ABO/RH(D) TYPE Positive [facility] CALCIUMon 05-31-2023 Calcium [Mass/Vol] 9.0 mg/dL Normal 8.6-10.5 [facility] Comment on above: Performed By: #### P TPTT #### [facility] (DEFAULT) [address] [place] [address]279 Calcium [Mass/Vol] 9.0 mg/dL 8.6 - 10. 5 mg/dL [facility] CBC AND ELECTRONIC DIFFon Abs Baso Auto < Normal 0.00-0.15 [facility] Comment on above: Performed By: #### P TPTT #### [facility] (DEFAULT) [address] [place] [address] Basophils/100 WBC (Bld) 0.4 % Normal [facility] Comment on above: Performed By: #### P TPTT #### [facility] (DEFAULT) [address] [place] [address] DIFF STATUS Electronic Differential Normal [facility] Comment on above: Performed By: #### P TPTT #### [facility] (DEFAULT) [address] [place] [address] Eosinophils (Bld) [#/Vol] 0.08 10*3/uL Normal 0.00-0.42 [facility] Comment on above: Performed By: #### P TPTT #### [facility] (DEFAULT) [address] [place] [address] Eosinophils/100 WBC (Bld) 1.1 % Normal [facility] Comment on above: Performed By: #### P TPTT #### [facility] (DEFAULT) [address] [place] [address] Hematocrit (Bld) [Volume fraction] 37.6 % Normal 34.9-44.3 [facility] Comment on above: Performed By: #### P TPTT #### [facility] (DEFAULT) [address] [place] [address] Hemoglobin (Bld) [Mass/Vol] 12.5 g/dL Normal 11.4-15.2 [facility] Comment on above: Performed By: #### P TPTT #### [facility] (DEFAULT) [address] [place] [address] Immature Grans % 0.4 % Normal [facility] Comment on above: Performed By: #### P TPTT #### [facility] (DEFAULT) [address] [place] [address] Immature Grans Absolute < Normal <=0.08 [facility] Comment on above: Performed By: #### P TPTT #### [facility] (DEFAULT) [address] [address] Lymphocytes (Bld) [#/Vol] 1.40 10*3/uL Normal 1.16-3.51 [facility] Comment on above: Performed By: #### P TPTT #### [facility] (DEFAULT) [address] [address] Lymphocytes/100 WBC (Bld) 18.5 % Normal [facility] Comment on above: Performed By: #### P TPTT #### [facility] (DEFAULT) [address] [address] MCV (RBC) [Entitic vol] 87.9 fL Normal 79.6-97.7 [facility] Comment on above: Performed By: #### P TPTT #### [facility] (DEFAULT) [address] [address] Mean Cell Hgb 29.2 pg Normal 25.9-33.9 [facility] Comment on above: Performed By: #### P TPTT #### [facility] (DEFAULT) [address] [place] [address] Mean Cell Hgb Conc 33.2 g/dL Normal 31.4-35.9 [facility] Comment on above: Performed By: #### P TPTT #### [facility] (DEFAULT) [address] [place] [address] Monocytes (Bld) [#/Vol] 0.69 10*3/uL Normal 0.22-0.87 [facility] Comment on above: Performed By: #### P TPTT #### [facility] (DEFAULT) [address] [place] [address] Monocytes/100 WBC (Bld) 9.1 % Normal [facility] Comment on above: Performed By: #### P TPTT #### [facility] (DEFAULT) [address] [address] Nucleated RBC 0.0 /100 WBC Normal <=0.2 [facility] Comment on above: Performed By: #### P TPTT #### [facility] (DEFAULT) [address] [place] [address] Platelet mean volume (Bld) [Entitic vol] 10.1 fL Normal 8.5-12.2 [facility] Comment on above: Performed By: #### P TPTT #### [facility] (DEFAULT) [address] [address] Platelets (Bld) [#/Vol] 230 10*3/uL Normal 150-393 [facility] Comment on above: Performed By: #### P TPTT #### [facility] (DEFAULT) [address] [address] RBC (Bld) [#/Vol] 4.28 10*6/uL Normal 3.91-5.04 [facility] Comment on above: Performed By: #### P TPTT #### [facility] (DEFAULT) [address] [address] RBC Distribution 14.3 % Normal 10.8-14.9 [facility] Comment on above: Performed By: #### P TPTT #### [facility] (DEFAULT) [address] [place] [address] Segs + Bands Auto 70.5 % Normal [facility] Comment on above: Performed By: #### P TPTT #### [facility] (DEFAULT) [address] [place] [address] Segs + Bands,Absolute Auto 5.33 K/uL Normal 1.64-7.28 [facility] Comment on above: Performed By: #### P TPTT #### [facility] (DEFAULT) [address] [place] [address] WBC (Bld) [#/Vol] 7.56 10*3/uL Normal 3.99-11.19 [facility] Comment on above: Performed By: #### P TPTT #### [facility] (DEFAULT) [address] [place] [address] Basophils (Bld) [#/Vol] K/uL 0.00 - 0.15 K/uL [facility] Basophils/100 WBC (Bld) 0.4 % [facility] Differential cell count method Nom (Bld) Electronic Differential [facility] Eosinophils (Bld) [#/Vol] 0.08 10*3/uL 0.00 - 0.42 K/uL [facility] Eosinophils/100 WBC (Bld) 1.1 % [facility] Erythrocyte distribution width (RBC) [Ratio] 14.3 % 10.8 - 14.9 % [facility] Hematocrit (Bld) [Volume fraction] 37.6 % 34.9 - 44.3 % [facility] Hemoglobin (Bld) [Mass/Vol] 12.5 g/dL 11.4 - 15.2 g/dL [facility] Immature granulocytes (Bld) [#/Vol] K/uL NINF - 0.08 K/uL [facility] Immature granulocytes/100 WBC (Bld) 0.4 % [facility] Lymphocytes (Bld) [#/Vol] 1.40 10*3/uL 1.16 - 3.51 K/uL [facility] Lymphocytes/100 WBC (Bld) 18.5 % [facility] MCH (RBC) [Entitic mass] 29.2 pg 25.9 - 33.9 pg [facility] MCHC (RBC) [Mass/Vol] 33.2 g/dL 31.4 - 35.9 g/dL [facility] MCV (RBC) [Entitic vol] 87.9 fL 79.6 - 97.7 fL [facility] Monocytes (Bld) [#/Vol] 0.69 10*3/uL 0.22 - 0.87 K/uL [facility] Monocytes/100 WBC (Bld) 9.1 % [facility] Neutrophils (Bld) [#/Vol] 5.33 10*3/uL 1.64 - 7.28 K/uL [facility] Nucleated RBC/100 WBC (Bld) [Ratio] 0.0 % NINF [facility] Platelet mean volume (Bld) [Entitic vol] 10.1 fL 8.5 - 12.2 fL [facility] Platelets (Bld) [#/Vol] 230 10*3/uL 150 - 393 K /uL [facility] RBC (Bld) [#/Vol] 4.28 10*6/uL [facility] Segmented neutrophils/100 WBC (Bld) 70.5 % [facility] WBC (Bld) [#/Vol] 7.56 10*3/uL 3.99 - 11. 19 K/uL [facility] CHEM 7 (LYTES,BUN,CREA,GLUC) on 05-31-2023 Anion gap [Moles/Vol] 14 mmol/L Normal 7-17 [facility] Comment on above: Performed By: #### P TPTT #### [facility] (DEFAULT) [address] [place] [address] Chloride [Moles/Vol] 103 mmol/L Normal 98-108 [facility] Comment on above: Performed By: #### P TPTT #### [facility] (DEFAULT) [address] [place] [address] CO2 [Moles/Vol] 22 mmol/L Normal 21-31 [facility] Comment on above: Performed By: #### P TPTT #### [facility] (DEFAULT) [address] [place] [address] Creatinine [Mass/Vol] 0.80 mg/dL Normal 0.50-1.20 [facility] Comment on above: Performed By: #### P TPTT #### [facility] (DEFAULT) [address] [place] [address] GFR/1.73 sq M.predicted among non-blacks MDRD (S/P/Bld) [Vol rate/Area] 81 mL/min/{1.73_m2} Normal >=60 [facility] Comment on above: Result Comment: Repo rted eGFR is based on the CKD-EPI 2020 equation using creatinine, age, and sex. Performed By: #### P TPTT #### [facility] (DEFAULT) [address] [place] [address] Glucose [Mass/Vol] 134 mg/dL High 70-99 [facility] Comment on above: Performed By: #### P TPTT #### [facility] (DEFAULT) [address] [place] [address]54 Osmolality [Osmolality] 286 mosm/kg Normal 278-305 [facility] Comment on above: Performed By: #### P TPTT #### [facility] (DEFAULT) [address] [address] Potassium [Moles/Vol] 3.7 mmol/L Normal 3.5-5.0 [facility] Comment on above: Performed By: #### P TPTT #### [facility] (DEFAULT) [address] [address] Sodium [Moles/Vol] 135 mmol/L Normal 135-145 [facility] Comment on above: Performed By: #### P TPTT #### [facility] (DEFAULT) [address] [place] [address] Urea nitrogen [Mass/Vol] 14 mg/dL Normal 7-25 [facility] Comment on above: Performed By: #### P TPTT #### [facility] (DEFAULT) [address] [place] [address] Urea nitrogen/Creatinine [Mass ratio] 18 mg/mg Normal [facility] Comment on above: Performed By: #### P TPTT #### [facility] (DEFAULT) [address] [place] [address] Anion gap [Moles/Vol] 14 mmol/L 7 - 17 mmol/L [facility] Chloride [Moles/Vol] 103 mmol/L 98 - 10 8 mmol/L [facility] CO2 [Moles/Vol] 22 mmol/L 21 - 31 mmol/L [facility] Creatinine [Mass/Vol] 0.80 mg/dL 0.50 - 1.20 mg/dL [facility] eGFR, CKD-EPI, Female 81 - PINF [facility] Comment on above: Reported eGFR is bas ed on the CKD-EPI 2020 equation using creatinine, age, and sex. Glucose [Mass/Vol] 134 mg/dL High 70 - 99 mg/dL [facility] Interpretation and review of laboratory results Abnormal [facility] Osmolality Calc [Osmolality] 286 [facility] Potassium [Moles/Vol] 3.7 mmol/L 3.5 - 5.0 mmol/L [facility] Sodium [Moles/Vol] 135 mmol/L 135 - 145 mmol/L [facility] Urea nitrogen [Mass/Vol] 14 mg/dL 7 - 25 mg/dL [facility] Urea nitrogen/Creatinine [Mass ratio] 18 mg/mg [facility] CT ABDOMEN/PELVIS WITH CONTR [place] 05-31-2023 CT ABDOMEN/PELVIS WITH CONTRAST EXAM: CT ABDOMEN/PELVIS WITH CONTRAST, 05/31/2023 04:36 AM COMPARISON: No prior studies available for comparison. CLINICAL INDICATIONS: cancer screening; TECHNIQUE: CT scanning was performed of the abdomen and pelvis following the administration of intravenous contrast. PROTOCOL: Standard. CONTRAST: iohexol (OMNIPAQUE) 350 MG/ML injection 1-171 mL; Route of Administration: Intravenous; Dose: 90 mL. FINDINGS: Lung Bases: The visualized lung bases reveal atelectatic changes in the right lower lobe and in the lingular lobe. No pleural or pericardial effusion. Thickening along the distal thoracic esophagus with a small sliding hiatal hernia.. ABDOMEN Liver: Liver is normal in size and morphology. Mild prominence of the caudate lobe. Small hypodense cyst in the left hepatic dome measures up to 9 mm in size. There are no suspicious enhancing focal liver lesions. Portal vein is patent. No intrahepatic biliary ductal dilatation. No perihepatic fluid or collection is seen Biliary/Gallbladder: Gallbladder is distended with layering of hyperdense sludge and possible tiny stones. No GB wall thickening or pericholecystic fluid. The biliary tree is nondilated. Spleen: Spleen is normal in size and CT density. No suspicious focal splenic lesions. Punctate calcified granulomas noted within the spleen. Splenic vascular pedicle is patent with no perisplenic fluid or collections. Pancreas: Pancreas shows no discrete focal lesions or ductal dilatation. There are no peripancreatic inflammatory changes or fluid collections. Adrenals: Mild thickening of the adrenal glands without discrete nodule or mass. Kidneys: Kidneys show symmetric enhancement with no calculus or hydronephrosis. Excreted contrast in the renal collecting systems limits detailed evaluation of tiny stones. Small left peripelvic cysts along the inferior pole. Small simple appearing cortical cysts in the lower pole right kidney largest measuring up to 9 mm in size. There are no enhancing focal lesions noted within the kidneys. No perinephric or retroperitoneal fluid collections. The ureters are nondilated Retroperitoneal/Vasc ulature: Abdominal aorta and its branches are patent. Mesenteric vasculature is also patent. Scattered atherosclerotic calcifications. There are no discrete enlarged abdominal or retroperitoneal lymph nodes. No free fluid is noted within the abdomen or pelvis. There are no loculated collections or abscess. Iliopsoas muscles are symmetric. Gastrointestinal/Mes entery: Stomach is partly distended with fluid limiting detailed evaluation. Slight thickening along the distal esophagus with a small hiatal hernia. The small bowel loops are grossly unremarkable and nonobstructed. No mesenteric mass or adenopathy is seen. Few small scattered mesenteric nodes are nonspecific and not enlarged by size criteria Appendix: Appendix is within normal limits Fecal residue is noted within the colonic loops limiting detailed evaluation. No gross colonic mass or paracolic inflammation is seen. There is colonic diverticulosis No gross free air or pneumatosis is seen PELVIS Bladder: Urinary bladder is distended with no gross mass or calculus. Subtle bladder wall thickening Genital: Uterus shows no discrete focal abnormalities. No adnexal masses or pelvic free fluid. Suspected mild pelvic floor descent. No enlarged pelvic or inguinal nodes by size criteria. Scattered vascular calcifications are seen. No suspicious focal abnormalities in the abdominal wall. Bony Structures: Visualized bony structures reveal degenerative changes in the visualized spine and the pelvic bones. There are no suspicious focal osseous lesions IMPRESSION: 1. No definite evidence of any primary malignancy or metastatic disease in the abdomen or pelvis. 2. No abdominal or pelvic lymphadenopathy by size criteria 3. Small bilateral renal cysts 4. Subtle thickening along the distal esophagus with a small hiatal hernia. Please correlate with upper GI symptoms 5. Layering of sludge and possible tiny stones in the gallbladder. Right upper quadrant ultrasound is recommended for confirmation of these findings. 6. Small simple appearing cyst in the left hepatic dome. 7. Slight urinary bladder wall thickening. Please correlate with lower urinary tract symptoms 8. Ancillary findings as described above Normal [facility] CT ANGIO BRAIN/NECKon 2023 CT ANGIO BRAIN/NECK EXAM: CT ANGIO BRAIN/NECK, 05/30/2023 21:39 PM COMPARISON: CT head dated May 30, 2023 CLINICAL INDICATIONS: 67 years Female Suspected Stroke RELEVANT CLINICAL HISTORY: Short-term memory issues TECHNIQUE: A series of transaxial multislice computerized tomographic images are obtained with helical technique from top of aortic arch to vertex following bolus intravenous administration of nonionic contrast. Axial thin section source images, as well as sagittal and coronal thin section reformats, were provided at the scanner. Additional multiplanar and 3D reconstructions were provided. CONTRAST: iohexol (OMNIPAQUE) 350 MG/ML injection 1-171 mL; Route of Administration: Intravenous; Dose: 96 mL. FINDINGS: CT ANGIOGRAM NECK: AORTIC ARCH: Conventional anatomic origin of the great vessels. No significant stenosis. RIGHT CAROTID ARTERY: Common carotid artery is patent and normal in caliber. Internal carotid artery origin at the bifurcation is patent and normal in caliber. More distal cervical segments of the internal carotid artery are patent and normal in caliber. LEFT CAROTID ARTERY: Common carotid artery demonstrates atherosclerotic plaque, without significant stenosis. Internal carotid artery origin at the bifurcation is patent and normal in caliber. More distal cervical segments of the internal carotid artery are patent and normal in caliber. RIGHT VERTEBRAL ARTERY: Origin is patent. More distal cervical segments are patent and normal in caliber. 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 LEFT VERTEBRAL ARTERY: Origin is patent. More distal cervical segments are patent and normal in caliber. Developmentally dominant and larger in caliber compared to the right vertebral artery. OTHER: No dissection or pseudoaneurysm. CT ANGIOGRAM HEAD: INTERNAL CAROTID ARTERIES: Atherosclerotic calcifications, without significant stenosis. ANTERIOR CEREBRAL ARTERIES: Patent and normal in caliber. There is a trifurcation pattern of the anterior cerebral arteries. MIDDLE CEREBRAL ARTERIES: Patent and normal in caliber. POSTERIOR CEREBRAL ARTERIES: Patent and normal in caliber. origin of the left DEPUTY HEAD is noted. VERTEBRAL ARTERIES: Patent and normal in caliber. Right vertebral artery is developmentally hypoplastic and largely terminates at the level of PICA. BASILAR ARTERY: Patent. No significant stenosis. OTHER: No aneurysm or AVM. ADDITIONAL FINDINGS: Right frontal lobe mass, better seen on same day CT head measures approximately 108 Hounsfield units. This location measured approximately 75 HU on the same day noncontrast head CT, suggestive of an underlying enhancing mass. IMPRESSION: 1. No hemodynamically significant stenosis, occlusion, aneurysm, dissection, or arteriovenous malformation of the major arteries of the head and neck. 2. Right frontal lobe hyperattenuating lesion measures approximately 108 Hounsfield units on this exam versus approximately 75 HU on the contemporaneous noncontrasted CT, suggestive of and underlying enhancing mass. This can be further evaluated with nonemergent MRI of the brain. I personally viewed and interpreted these images and I have reviewed and approved this report. Normal [facility] CT Abdomen and Pelvis W cont rast Christy 05-31-2023 IMPRESSION: 1. No definite evidence of any primary malignancy or metastatic disease in the abdomen or pelvis. 2. No abdominal or pelvic lymphadenopathy by size criteria 3. Small bilateral renal cysts 4. Subtle thickening along the distal esophagus with a small hiatal hernia. Please correlate with upper GI symptoms 5. Layering of sludge and possible tiny stones in the gallbladder. Right upper quadrant ultrasound is recommended for confirmation of these findings. 6. Small simple appearing cyst in the left hepatic dome. 7. Slight urinary bladder wall thickening. Please correlate with lower urinary tract symptoms 8. Ancillary findings as described above OLOGY EXAM: CT ABDOMEN/PELVIS WITH CONTRAST, 05/31/2023 04:36 AM COMPARISON: No prior studies available for comparison. CLINICAL INDICATIONS: cancer screening; TECHNIQUE: CT scanning was performed of the abdomen and pelvis following the administration of intravenous contrast. PROTOCOL: Standard. CONTRAST: iohexol (OMNIPAQUE) 350 MG/ML injection 1-171 mL; Route of Administration: Intravenous; Dose: 90 mL. FINDINGS: Lung Bases: The visualized lung bases reveal atelectatic changes in the right lower lobe and in the lingular lobe. No pleural or pericardial effusion. Thickening along the distal thoracic esophagus with a small sliding hiatal hernia.. ABDOMEN Liver: Liver is normal in size and morphology. Mild prominence of the caudate lobe. Small hypodense cyst in the left hepatic dome measures up to 9 mm in size. There are no suspicious enhancing focal liver lesions. Portal vein is patent. No intrahepatic biliary ductal dilatation. No perihepatic fluid or collection is seen Biliary/Gallbladder: Gallbladder is distended with layering of hyperdense sludge and possible tiny stones. No GB wall thickening or pericholecystic fluid. The biliary tree is nondilated. Spleen: Spleen is normal in size and CT density. No suspicious focal splenic lesions. Punctate calcified granulomas noted within the spleen. Splenic vascular pedicle is patent with no perisplenic fluid or collections. Pancreas: Pancreas shows no discrete focal lesions or ductal dilatation. There are no peripancreatic inflammatory changes or fluid collections. Adrenals: Mild thickening of the adrenal glands without discrete nodule or mass. Kidneys: Kidneys show symmetric enhancement with no calculus or hydronephrosis. Excreted contrast in the renal collecting systems limits detailed evaluation of tiny stones. Small left peripelvic cysts along the inferior pole. Small simple appearing cortical cysts in the lower pole right kidney largest measuring up to 9 mm in size. There are no enhancing focal lesions noted within the kidneys. No perinephric or retroperitoneal fluid collections. The ureters are nondilated Retroperitoneal/Vasc ulature: Abdominal aorta and its branches are patent. Mesenteric vasculature is also patent. Scattered atherosclerotic calcifications. There are no discrete enlarged abdominal or retroperitoneal lymph nodes. No free fluid is noted within the abdomen or pelvis. There are no loculated collections or abscess. Iliopsoas muscles are symmetric. Gastrointestinal/Mes entery: Stomach is partly distended with fluid limiting detailed evaluation. Slight thickening along the distal esophagus with a small hiatal hernia. The small bowel loops are grossly unremarkable and nonobstructed. No mesenteric mass or adenopathy is seen. Few small scattered mesenteric nodes are nonspecific and not enlarged by size criteria Appendix: Appendix is within normal limits Fecal residue is noted within the colonic loops limiting detailed evaluation. No gross colonic mass or paracolic inflammation is seen. There is colonic diverticulosis No gross free air or pneumatosis is seen PELVIS Bladder: Urinary bladder is distended with no gross mass or calculus. Subtle bladder wall thickening Genital: Uterus shows no discrete focal abnormalities. No adnexal masses or pelvic free fluid. Suspected mild pelvic floor descent. No enlarged pelvic or inguinal nodes by size criteria. Scattered vascular calcifications are seen. No suspicious focal abnormalities in the abdominal wall. Bony Structures: Visualized bony structures reveal degenerative changes in the visualized spine and the pelvic bones. There are no suspicious focal osseous lesions RADIOLOGY Hal Isaac MBBS - 05/31/2023 EXAM: CT ABDOMEN/PELVIS WITH CONTRAST, 05/31/2023 04:36 AM COMPARISON: No prior studies available for comparison. CLINICAL INDICATIONS: cancer screening; TECHNIQUE: CT scanning was performed of the abdomen and pelvis following the administration of intravenous contrast. PROTOCOL: Standard. CONTRAST: iohexol (OMNIPAQUE) 350 MG/ML injection 1-171 mL; Route of Administration: Intravenous; Dose: 90 mL. FINDINGS: Lung Bases: The visualized lung bases reveal atelectatic changes in the right lower lobe and in the lingular lobe. No pleural or pericardial effusion. Thickening along the distal thoracic esophagus with a small sliding hiatal hernia.. ABDOMEN Liver: Liver is normal in size and morphology. Mild prominence of the caudate lobe. Small hypodense cyst in the left hepatic dome measures up to 9 mm in size. There are no suspicious enhancing focal liver lesions. Portal vein is patent. No intrahepatic biliary ductal dilatation. No perihepatic fluid or collection is seen Biliary/Gallbladder: Gallbladder is distended with layering of hyperdense sludge and possible tiny stones. No GB wall thickening or pericholecystic fluid. The biliary tree is nondilated. Spleen: Spleen is normal in size and CT density. No suspicious focal splenic lesions. Punctate calcified granulomas noted within the spleen. Splenic vascular pedicle is patent with no perisplenic fluid or collections. Pancreas: Pancreas shows no discrete focal lesions or ductal dilatation. There are no peripancreatic inflammatory changes or fluid collections. Adrenals: Mild thickening of the adrenal glands without discrete nodule or mass. Kidneys: Kidneys show symmetric enhancement with no calculus or hydronephrosis. Excreted contrast in the renal collecting systems limits detailed evaluation of tiny stones. Small left peripelvic cysts along the inferior pole. Small simple appearing cortical cysts in the lower pole right kidney largest measuring up to 9 mm in size. There are no enhancing focal lesions noted within the kidneys. No perinephric or retroperitoneal fluid collections. The ureters are nondilated Retroperitoneal/Vasc ulature: Abdominal aorta and its branches are patent. Mesenteric vasculature is also patent. Scattered atherosclerotic calcifications. There are no discrete enlarged abdominal or retroperitoneal lymph nodes. No free fluid is noted within the abdomen or pelvis. There are no loculated collections or abscess. Iliopsoas muscles are symmetric. Gastrointestinal/Mes entery: Stomach is partly distended with fluid limiting detailed evaluation. Slight thickening along the distal esophagus with a small hiatal hernia. The small bowel loops are grossly unremarkable and nonobstructed. No mesenteric mass or adenopathy is seen. Few small scattered mesenteric nodes are nonspecific and not enlarged by size criteria Appendix: Appendix is within normal limits Fecal residue is noted within the colonic loops limiting detailed evaluation. No gross colonic mass or paracolic inflammation is seen. There is colonic diverticulosis No gross free air or pneumatosis is seen PELVIS Bladder: Urinary bladder is distended with no gross mass or calculus. Subtle bladder wall thickening Genital: Uterus shows no discrete focal abnormalities. No adnexal masses or pelvic free fluid. Suspected mild pelvic floor descent. No enlarged pelvic or inguinal nodes by size criteria. Scattered vascular calcifications are seen. No suspicious focal abnormalities in the abdominal wall. Bony Structures: Visualized bony structures reveal degenerative changes in the visualized spine and the pelvic bones. There are no suspicious focal osseous lesions IMPRESSION IMPRESSION: 1. No definite evidence of any primary malignancy or metastatic disease in the abdomen or pelvis. 2. No abdominal or pelvic lymphadenopathy by size criteria 3. Small bilateral renal cysts 4. Subtle thickening along the distal esophagus with a small hiatal hernia. Please correlate with upper GI symptoms 5. Layering of sludge and possible tiny stones in the gallbladder. Right upper quadrant ultrasound is recommended for confirmation of these findings. 6. Small simple appearing cyst in the left hepatic dome. 7. Slight urinary bladder wall thickening. Please correlate with lower urinary tract symptoms 8. Ancillary findings as described above [facility] CT Abdomen and Pelvis W cont rast IVOrdered By: Hal Isaac on 05-31-2023 [facility] Work Phone: CT CHEST WITH CONTRASTon CT CHEST WITH CONTRAST EXAM: CT CHEST WI TH CONTRAST, 05/31/2023 04:36 AM COMPARISON: No Available Comparisons. CLINICAL INDICATIONS: Brain/INSET CUTTER neoplasm, staging; RELEVANT CLINICAL HISTORY: TECHNIQUE: CT images of the chest were obtained following administration of intravenous contrast. CONTRAST: iohexol (OMNIPAQUE) 350 MG/ML injection 1-171 mL; Route of Administration: Intravenous; Dose: 90 mL. FINDINGS: Lungs and Pleura: No suspicious pulmonary nodule. A 5 x 5 mm perifissural nodule along the right major fissure (image 110), likely a lymph node. Biapical scarring. Linear scarring in medial right lower lobe. No consolidation. No pleural fluid. Tracheobronchial tree: No abnormality. Mediastinum/Vero: No mediastinal or hilar lymphadenopathy. Small hiatal hernia. Axilla and Supraclavicular Region: No axillary or supraclavicular adenopathy. Cardiovascular: The cardiac chambers and pericardium are within normal limits. The aorta and arch branch vessels, as well as the pulmonary arteries, are unremarkable. Upper Abdomen: Please see the abdominal CT scan report from the same date for further description of findings related to the upper abdomen. Bones and Soft Tissue: No suspicious osseous lesion. IMPRESSION: 1. No convincing CT evidence of metastatic disease within the chest. Normal [facility] CT Chest W contrast Christy IMPRESSION: 1. No convincing CT evidence of metastatic disease within the chest. OLOGY EXAM: CT CHEST WITH CONTRAST, 05/31/2023 04:36 AM COMPARISON: No Available Comparisons. CLINICAL INDICATIONS: Brain/INSET CUTTER neoplasm, staging; RELEVANT CLINICAL HISTORY: TECHNIQUE: CT images of the chest were obtained following administration of intravenous contrast. CONTRAST: iohexol (OMNIPAQUE) 350 MG/ML injection 1-171 mL; Route of Administration: Intravenous; Dose: 90 mL. FINDINGS: Lungs and Pleura: No suspicious pulmonary nodule. A 5 x 5 mm perifissural nodule along the right major fissure (image 110), likely a lymph node. Biapical scarring. Linear scarring in medial right lower lobe. No consolidation. No pleural fluid. Tracheobronchial tree: No abnormality. Mediastinum/Vero: No mediastinal or hilar lymphadenopathy. Small hiatal hernia. Axilla and Supraclavicular Region: No axillary or supraclavicular adenopathy. Cardiovascular: The cardiac chambers and pericardium are within normal limits. The aorta and arch branch vessels, as well as the pulmonary arteries, are unremarkable. Upper Abdomen: Please see the abdominal CT scan report from the same date for further description of findings related to the upper abdomen. Bones and Soft Tissue: No suspicious osseous lesion. RADIOLOGY Alesha Gutiérrez, MBBCH - 05/31/2023 EXAM: CT CHEST WITH CONTRAST, 05/31/2023 04:36 AM COMPARISON: No Available Comparisons. CLINICAL INDICATIONS: Brain/IN[employer] CUTTER neoplasm, staging; RELEVANT CLINICAL HISTORY: TECHNIQUE: CT images of the chest were obtained following administration of intravenous contrast. CONTRAST: iohexol (OMNIPAQUE) 350 MG/ML injection 1-171 mL; Route of Administration: Intravenous; Dose: 90 mL. FINDINGS: Lungs and Pleura: No suspicious pulmonary nodule. A 5 x 5 mm perifissural nodule along the right major fissure (image 110), likely a lymph node. Biapical scarring. Linear scarring in medial right lower lobe. No consolidation. No pleural fluid. Tracheobronchial tree: No abnormality. Mediastinum/Vero: No mediastinal or hilar lymphadenopathy. Small hiatal hernia. Axilla and Supraclavicular Region: No axillary or supraclavicular adenopathy. Cardiovascular: The cardiac chambers and pericardium are within normal limits. The aorta and arch branch vessels, as well as the pulmonary arteries, are unremarkable. Upper Abdomen: Please see the abdominal CT scan report from the same date for further description of findings related to the upper abdomen. Bones and Soft Tissue: No suspicious osseous lesion. IMPRESSION IMPRESSION: 1. No convincing CT evidence of metastatic disease within the chest. [facility] CT Chest W contrast IVOrdere d By: Alesha Gutiérrez on 05-31-2023 [facility] Work Phone: CT HEAD WITHOUT CONTRASTon 0 05-31-2023 CT HEAD WITHOUT CONTRAST EXAM: CT HEAD WITHOUT CONTRAST, 05/31/2023 4:36 AM COMPARISON: May 30, 2023 CLINICAL INDICATIONS: 67 years Female Stroke, hemorrhagic; RELEVANT CLINICAL HISTORY: Perform in 6 hours; TECHNIQUE: A series of transaxial computerized tomographic images are obtained from base of skull to vertex without intravenous contrast. Axial whole-head and thin section posterior fossa slices are provided. Reformats: Sagittal and coronal. FINDINGS: Redemonstration of hemorrhage with surrounding edema in the right frontal lobe. Small amount of adjacent subarachnoid hemorrhage. Focal hyperdensity in the left frontal lobe likely representing an additional focus of hemorrhage. Ventricles are normal in size and configuration for patient age. Skull appears intact. Hyperostosis frontalis internus. Visualized orbits appear normal. Visualized paranasal sinuses are clear. Visualized mastoid air cells are clear. Atherosclerotic calcifications of the major arteries at the skull base are noted. IMPRESSION: Stable hemorrhage with surrounding edema in the right frontal lobe. Adjacent subarachnoid hemorrhage in the right frontal lobe. Small amount of hemorrhage along the left frontal convexity new since the prior exam. Normal [facility] CT Head WO contraston 2023 IMPRESSION: Stable hemorrhage with surrounding edema in the right frontal lobe. Adjacent subarachnoid hemorrhage in the right frontal lobe. Small amount of hemorrhage along the left frontal convexity new since the prior exam. OLOGY EXAM: CT HEAD WITHOUT CONTRAST, 05/31/2023 4:36 AM COMPARISON: May 30, 2023 CLINICAL INDICATIONS: 67 years Female Stroke, hemorrhagic; RELEVANT CLINICAL HISTORY: Perform in 6 hours; TECHNIQUE: A series of transaxial computerized tomographic images are obtained from base of skull to vertex without intravenous contrast. Axial whole-head and thin section posterior fossa slices are provided. Reformats: Sagittal and coronal. FINDINGS: Redemonstration of hemorrhage with surrounding edema in the right frontal lobe. Small amount of adjacent subarachnoid hemorrhage. Focal hyperdensity in the left frontal lobe likely representing an additional focus of hemorrhage. Ventricles are normal in size and configuration for patient age. Skull appears intact. Hyperostosis frontalis internus. Visualized orbits appear normal. Visualized paranasal sinuses are clear. Visualized mastoid air cells are clear. Atherosclerotic calcifications of the major arteries at the skull base are noted. RADIOLOGY Kiersten Watts MBBS - 05/31/2023 EXAM: CT HEAD WITHOUT CONTRAST, 05/31/2023 4:36 AM COMPARISON: May 30, 2023 CLINICAL INDICATIONS: 67 years Female Stroke, hemorrhagic; RELEVANT CLINICAL HISTORY: Perform in 6 hours; TECHNIQUE: A series of transaxial computerized tomographic images are obtained from base of skull to vertex without intravenous contrast. Axial whole-head and thin section posterior fossa slices are provided. Reformats: Sagittal and coronal. FINDINGS: Redemonstration of hemorrhage with surrounding edema in the right frontal lobe. Small amount of adjacent subarachnoid hemorrhage. Focal hyperdensity in the left frontal lobe likely representing an additional focus of hemorrhage. Ventricles are normal in size and configuration for patient age. Skull appears intact. Hyperostosis frontalis internus. Visualized orbits appear normal. Visualized paranasal sinuses are clear. Visualized mastoid air cells are clear. Atherosclerotic calcifications of the major arteries at the skull base are noted. IMPRESSION IMPRESSION: Stable hemorrhage with surrounding edema in the right frontal lobe. Adjacent subarachnoid hemorrhage in the right frontal lobe. Small amount of hemorrhage along the left frontal convexity new since the prior exam. [facility] Radiology Study observation (narrative) [facility] CT Head WO contrastOrdered B y: Kiersten Watts on 05-31-2023 [facility] Work Phone: CT STROKE HEAD-STROKE ALERT ONLYon 05-31-2023 CT STROKE HEAD-STROKE ALERT ONLY EXAM: CT STROKE HEAD-STROKE ALERT ONLY, 05/30/2023 9:36 PM COMPARISON: Compared to same day outside hospital CT head. CLINICAL INDICATIONS: 67 years Female Suspected Stroke RELEVANT CLINICAL HISTORY: Short-term memory issues TECHNIQUE: A series of transaxial computerized tomographic images are obtained from base of skull to vertex without intravenous contrast. Axial whole-head and thin section posterior fossa slices are provided. Reformats: Sagittal and coronal. FINDINGS: Small wedge-shaped area of encephalomalacia of the anterior right frontal lobe, best appreciated on series 903 image 33, suggestive of a remote infarct. Patchy periventricular white matter hypoattenuation is noted which is non-specific, but likely due to chronic small vessel ischemic changes. Tiny remote lacunar infarct or dilated perivascular space within the anterior limb of the right internal capsule. A 3.1 x 2.7 cm focal hyperdense lesion in the superior right frontal lobe which extends from the surface of the brain to the magdaleno-white matter junction. There is surrounding vasogenic edema, raising concern for a hemorrhagic mass or intraparenchymal hemorrhage. Small amount of subarachnoid hemorrhage within sulci along the medial margin of the right frontal lobe, best seen on series 903 image 44. No significant mass effect or midline shift. Ventricles are normal in size and configuration for patient age. Skull appears intact. Hyperostosis frontalis internus. Visualized orbits appear normal. Visualized paranasal sinuses are clear. Visualized mastoid air cells are clear. Atherosclerotic calcifications of the major arteries at the skull base are noted. IMPRESSION: 1. High-attenuating lesion at the superior right frontal lobe with surrounding vasogenic edema raises concern for hemorrhagic mass versus intraparenchymal hemorrhage; this is stable from prior outside hospital same-day head CT. 2. Small amount of subarachnoid hemorrhage within sulci along the medial margin of the right frontal lobe. 3. Recommend nonemergent MRI brain with and without contrast to assess for an underlying mass lesion. Findings were discussed with Hernesto Montelongo at 2152 on 05/30/[address] Kelsi Elias. I personally viewed and interpreted these images and I have reviewed and approved this report. Normal [facility] EXTRA MICROon 05-31-2023 [facility] HEMOGLOBIN A1Con 05-31-2023 Average glucose Estimated from glycated hemoglobin (Bld) [Mass/Vol] 126 mg/dL [facility] HbA1c (Bld) [Mass fraction] 6.0 % High 4.7 - 5.6 % [facility] Interpretation and review of laboratory results Abnormal [facility] LIPID PANEL WITH REFLEX TO M EASURED LDLon 05-31-2023 Cholesterol [Mass/Vol] 140 mg/dL NINF - 200 mg/dL [facility] Comment on above: [<200 mg/dL: Desirab le] [200-239 mg/dL: Borderline High] [>239 mg/dL: High] Cholesterol in HDL [Mass/Vol] 54 mg/dL 40 - PINF mg/dL [facility] Comment on above: [<40 mg/dL: Low (Hig h Risk)] [>59 mg/dL: High (Low Risk)] Cholesterol in LDL [Mass/Vol] 74 mg/dL 0 - 99 mg/dL [facility] Comment on above: [<100 mg/dL: Optimal ] [100-129 mg/dL: Near Optimal] [130-159 mg/dL: Borderline High] [160-189 mg/dL: High] [>189 mg/dL: Very High] Cholesterol non HDL [Mass/Vol] 86 mg/dL NINF - 130 mg/dL [facility] Cholesterol.total/Amirah sterol in HDL [Mass ratio] 2.6 {ratio} NINF - 4.5 [facility] Interpretation and review of laboratory results Normal [facility] Triglyceride [Mass/Vol] 61 mg/dL NINF - 150 mg/dL [facility] Comment on above: [<150 mg/dL: Desirab le] [150-199 mg/dL: Borderline] [200-499 mg/dL: High] [>500 mg/dL: Very High] [facility] MAGNESIUMon 05-31-2023 Magnesium [Mass/Vol] 2.1 mg/dL Normal 1.6-2.6 [facility] Comment on above: Performed By: #### P TPTT #### [facility] (DEFAULT) [address] [place] [address] Magnesium [Mass/Vol] 2.1 mg/dL 1.6 - 2 .6 mg/dL [facility] MR Brain WO and W contrast I Von 05-31-2023 IMPRESSION: Prominent acute parenchymal hematoma in the posterior/superior right frontal lobe with additional more subacute hematoma more anterior in the medial right frontal lobe. There is no corresponding enhancement with the larger hematoma with small amount of peripheral enhancement at the subacute hematoma without discrete focal nodularity. Intrinsic T1 hyperintensity may obscure additional areas of underlying enhancement, and follow-up imaging in 6-8 weeks is recommended. Scattered sulcal susceptibility artifact, much of which corresponds to the areas of subarachnoid hemorrhage on recent CT head. There is also corresponding mild leptomeningeal enhancement which may be related to this subarachnoid hemorrhage. Other differential considerations would include infectious/inflammat ory and neoplastic etiologies, and attention on follow-up imaging is advised to assess for interval change. Nonspecific right-sided dural thickening and enhancement, which may be reactive. OLOGY EXAM: MRI BRAIN WITH AND WITHOUT CONTRAST, 05/31/2023 01:37 AM COMPARISON: CT head on May 30, 2023. CLINICAL INDICATIONS: 67 years Female concern for brain mass; TECHNIQUE: A series of multisequence, multiplanar images of the brain are obtained both before and after intravenous administration of gadolinium-based contrast using standard protocol. Study was performed at 3 Awa. CONTRAST: gadoterate Meglumine (DOTAREM) 5 MMOL/10ML injection 3-60 mL; Route of Administration: Intravenous; Dose: 20 mL. FINDINGS: Acute parenchymal hematoma in the superior right frontal lobe measuring 3.3 x 3.0 cm. This is centrally T2 hypointense with mild peripheral T1 hyperintensity. There is mild surrounding edema. On comparison of the pre and postcontrast images, there is no significant corresponding enhancement. There is a smaller T1/T2 hyperintense, subacute hematoma in the more anterior/medial right frontal lobe measuring 15 x 12 mm. On comparison of the pre and postcontrast there is possible small amount of peripheral enhancement although this could be due to associated edema. On susceptibility-weigh clary imaging, there is magnetic susceptibility associated with these hematomas. There is also prominent sulcal and cortical magnetic susceptibility associated with an adjacent gyrus. Susceptibility artifact is also noted in multiple bilateral sulci. Some of this corresponds to the subarachnoid hemorrhage noted on CT although there is also likely a degree of chronic hemosiderin staining. Additional small foci of magnetic susceptibility are noted in the right temporal lobe. There is diffusion abnormality associated with the parenchymal hematomas, likely artifactual. No abnormal parenchymal enhancement is noted elsewhere. Is asymmetric dural thickening enhancement overlying the right cerebral convexity with leptomeningeal enhancement in the right greater than left frontal lobes. This may be reactive from the subarachnoid hemorrhage although differential would include infectious/inflammat ory and neoplastic etiologies. Clinical correlation is requested. Recommend follow-up imaging to assess for interval change. The ventricles are normal in size and configuration for the patient's age. There is no diffusion abnormality to indicate an acute infarct. There is no mass lesion, mass effect, or shift of the midline structures. There is no basal cistern effacement. There is no abnormal extra-axial collection. The paranasal sinuses and mastoid air cells are generally clear. The orbits are unremarkable. The calvarium is intact. RADIOLOGY Margarito Russ MD - 05/31/2023 EXAM: MRI BRAIN WITH AND WITHOUT CONTRAST, 05/31/2023 01:37 AM COMPARISON: CT head on May 30, 2023. CLINICAL INDICATIONS: 67 years Female concern for brain mass; TECHNIQUE: A series of multisequence, multiplanar images of the brain are obtained both before and after intravenous administration of gadolinium-based contrast using standard protocol. Study was performed at 3 Awa. CONTRAST: gadoterate Meglumine (DOTAREM) 5 MMOL/10ML injection 3-60 mL; Route of Administration: Intravenous; Dose: 20 mL. FINDINGS: Acute parenchymal hematoma in the superior right frontal lobe measuring 3.3 x 3.0 cm. This is centrally T2 hypointense with mild peripheral T1 hyperintensity. There is mild surrounding edema. On comparison of the pre and postcontrast images, there is no significant corresponding enhancement. There is a smaller T1/T2 hyperintense, subacute hematoma in the more anterior/medial right frontal lobe measuring 15 x 12 mm. On comparison of the pre and postcontrast there is possible small amount of peripheral enhancement although this could be due to associated edema. On susceptibility-weigh clary imaging, there is magnetic susceptibility associated with these hematomas. There is also prominent sulcal and cortical magnetic susceptibility associated with an adjacent gyrus. Susceptibility artifact is also noted in multiple bilateral sulci. Some of this corresponds to the subarachnoid hemorrhage noted on CT although there is also likely a degree of chronic hemosiderin staining. Additional small foci of magnetic susceptibility are noted in the right temporal lobe. There is diffusion abnormality associated with the parenchymal hematomas, likely artifactual. No abnormal parenchymal enhancement is noted elsewhere. Is asymmetric dural thickening enhancement overlying the right cerebral convexity with leptomeningeal enhancement in the right greater than left frontal lobes. This may be reactive from the subarachnoid hemorrhage although differential would include infectious/inflammat ory and neoplastic etiologies. Clinical correlation is requested. Recommend follow-up imaging to assess for interval change. The ventricles are normal in size and configuration for the patient's age. There is no diffusion abnormality to indicate an acute infarct. There is no mass lesion, mass effect, or shift of the midline structures. There is no basal cistern effacement. There is no abnormal extra-axial collection. The paranasal sinuses and mastoid air cells are generally clear. The orbits are unremarkable. The calvarium is intact. IMPRESSION IMPRESSION: Prominent acute parenchymal hematoma in the posterior/superior right frontal lobe with additional more subacute hematoma more anterior in the medial right frontal lobe. There is no corresponding enhancement with the larger hematoma with small amount of peripheral enhancement at the subacute hematoma without discrete focal nodularity. Intrinsic T1 hyperintensity may obscure additional areas of underlying enhancement, and follow-up imaging in 6-8 weeks is recommended. Scattered sulcal susceptibility artifact, much of which corresponds to the areas of subarachnoid hemorrhage on recent CT head. There is also corresponding mild leptomeningeal enhancement which may be related to this subarachnoid hemorrhage. Other differential considerations would include infectious/inflammat ory and neoplastic etiologies, and attention on follow-up imaging is advised to assess for interval change. Nonspecific right-sided dural thickening and enhancement, which may be reactive. [facility] Radiology Study observation (narrative) [facility] MR Brain WO and W contrast I VOrdered By: Margarito Russ on 05-31-2023 [facility] Work Phone: MRI BRAIN WITH AND WITHOUT C ONTRASTon 05-31-2023 MRI BRAIN WITH AND WITHOUT CONTRAST EXAM: MRI BRAIN WITH AND WITHOUT CONTRAST, 05/31/2023 01:37 AM COMPARISON: CT head on May 30, 2023. CLINICAL INDICATIONS: 67 years Female concern for brain mass; TECHNIQUE: A series of multisequence, multiplanar images of the brain are obtained both before and after intravenous administration of gadolinium-based contrast using standard protocol. Study was performed at 3 Awa. CONTRAST: gadoterate Meglumine (DOTAREM) 5 MMOL/10ML injection 3-60 mL; Route of Administration: Intravenous; Dose: 20 mL. FINDINGS: Acute parenchymal hematoma in the superior right frontal lobe measuring 3.3 x 3.0 cm. This is centrally T2 hypointense with mild peripheral T1 hyperintensity. There is mild surrounding edema. On comparison of the pre and postcontrast images, there is no significant corresponding enhancement. There is a smaller T1/T2 hyperintense, subacute hematoma in the more anterior/medial right frontal lobe measuring 15 x 12 mm. On comparison of the pre and postcontrast there is possible small amount of peripheral enhancement although this could be due to associated edema. On susceptibility-weigh clary imaging, there is magnetic susceptibility associated with these hematomas. There is also prominent sulcal and cortical magnetic susceptibility associated with an adjacent gyrus. Susceptibility artifact is also noted in multiple bilateral sulci. Some of this corresponds to the subarachnoid hemorrhage noted on CT although there is also likely a degree of chronic hemosiderin staining. Additional small foci of magnetic susceptibility are noted in the right temporal lobe. There is diffusion abnormality associated with the parenchymal hematomas, likely artifactual. No abnormal parenchymal enhancement is noted elsewhere. Is asymmetric dural thickening enhancement overlying the right cerebral convexity with leptomeningeal enhancement in the right greater than left frontal lobes. This may be reactive from the subarachnoid hemorrhage although differential would include infectious/inflammat ory and neoplastic etiologies. Clinical correlation is requested. Recommend follow-up imaging to assess for interval change. The ventricles are normal in size and configuration for the patient's age. There is no diffusion abnormality to indicate an acute infarct. There is no mass lesion, mass effect, or shift of the midline structures. There is no basal cistern effacement. There is no abnormal extra-axial collection. The paranasal sinuses and mastoid air cells are generally clear. The orbits are unremarkable. The calvarium is intact. IMPRESSION: Prominent acute parenchymal hematoma in the posterior/superior right frontal lobe with additional more subacute hematoma more anterior in the medial right frontal lobe. There is no corresponding enhancement with the larger hematoma with small amount of peripheral enhancement at the subacute hematoma without discrete focal nodularity. Intrinsic T1 hyperintensity may obscure additional areas of underlying enhancement, and follow-up imaging in 6-8 weeks is recommended. Scattered sulcal susceptibility artifact, much of which corresponds to the areas of subarachnoid hemorrhage on recent CT head. There is also corresponding mild leptomeningeal enhancement which may be related to this subarachnoid hemorrhage. Other differential considerations would include infectious/inflammat ory and neoplastic etiologies, and attention on follow-up imaging is advised to assess for interval change. Nonspecific right-sided dural thickening and enhancement, which may be reactive. Normal [facility] No Panel Informationon 05-31 Interpretation and review of laboratory results Normal [facility] Radiology Study observation (narrative) [facility] PHOSPHATE, INORGANICon 05-31 Phosphorous 3.1 mg/dL Normal 2.2-4.6 [facility] Comment on above: Performed By: #### P TPTT #### [facility] (DEFAULT) [address] [address] Phosphate [Mass/Vol] 3.1 mg/dL 2.2 - 4 .6 mg/dL [facility] PT,INR,PTTon 05-31-2023 aPTT Coag (Bld) [Time] 31.0 s Normal 24.0-34.3 [facility] Comment on above: Performed By: #### P TPTT #### [facility] (DEFAULT) [address] [place] [address] INR Coag (PPP) [Relative time] 1.0 {INR} Normal 0.9-1.1 [facility] Comment on above: Performed By: #### P TPTT #### [facility] (DEFAULT) [address] [place] [address] PT Coag (PPP) [Time] 13.5 s Normal 11.9-14.2 [facility] Comment on above: Performed By: #### P TPTT #### [facility] (DEFAULT) [address] [place] [address]254 aPTT Coag (PPP) [Time] 31.0 s [facility] INR Coag (Bld) [Relative time] 1.0 {INR} 0.9 - 1.1 [facility] Interpretation and review of laboratory results Normal [facility] PT Coag (PPP) [Time] 13.5 s [facility] TYPE AND SCREENon 05-31-2023 ABO/RH(D) TYPE Positive Normal [facility] Comment on above: Performed By: #### X M #### [facility] (DEFAULT) [address] [place] [id number] URINALYSIS REFLEX TO CULTURE PERFORMABLEon 05-31-2023 Appearance (U) Clear Normal Clear [facility] Comment on above: Order Comment: For i ndwelling catheters, specimen collection is acceptable on catheter day 1 and 2 only. ? Performed By: #### U [id number] #### [facility] (DEFAULT) [address] [place] [address] Bacteria ABSENT Normal ABSENT [facility] Comment on above: Order Comment: For i ndwelling catheters, specimen collection is acceptable on catheter day 1 and 2 only. ? Performed By: #### U [id number] #### [facility] (DEFAULT) [address] [place] [address]758 Blood Urine Trace Abnormal Negative [facility] Comment on above: Order Comment: For i ndwelling catheters, specimen collection is acceptable on catheter day 1 and 2 only. ? Performed By: #### U [id number] #### [facility] (DEFAULT) [address] [place] [address] Color (U) Yellow Normal Yellow [facility] Comment on above: Order Comment: For i ndwelling catheters, specimen collection is acceptable on catheter day 1 and 2 only. ? Performed By: #### U [id number] #### [facility] (DEFAULT) [address] [place] [address] Glucose Ql (U) Negative Normal Negative [facility] Comment on above: Order Comment: For i ndwelling catheters, specimen collection is acceptable on catheter day 1 and 2 only. ? Performed By: #### U [id number] #### [facility] (DEFAULT) [address] [place] [address]21 Ketones Ql (U) Trace Abnormal Negative [facility] Comment on above: Order Comment: For i ndwelling catheters, specimen collection is acceptable on catheter day 1 and 2 only. ? Performed By: #### U [id number] #### [facility] (DEFAULT) [address] [place] [address] Leukocyte esterase Test strip Ql (U) Small Abnormal Negative [facility] Comment on above: Order Comment: For i ndwelling catheters, specimen collection is acceptable on catheter day 1 and 2 only. ? Performed By: #### U [id number] #### [facility] (DEFAULT) [address] [place] [address]2085 Nitrites Urine Negative Normal Negative [facility] Comment on above: Order Comment: For i ndwelling catheters, specimen collection is acceptable on catheter day 1 and 2 only. ? Performed By: #### U [id number] #### [facility] (DEFAULT) [address] [place] [address] pH (U) 7.0 [pH] Normal 5.0-7.0 [facility] Comment on above: Order Comment: For i ndwelling catheters, specimen collection is acceptable on catheter day 1 and 2 only. ? Performed By: #### U [id number] #### [facility] (DEFAULT) [address] [address] Protein Urine Negative Normal Negative [facility] Comment on above: Order Comment: For i ndwelling catheters, specimen collection is acceptable on catheter day 1 and 2 only. ? Performed By: #### U [id number] #### [facility] (DEFAULT) [address] [address] RBC Urine 3-5 Abnormal 0-2 [facility] Comment on above: Order Comment: For i ndwelling catheters, specimen collection is acceptable on catheter day 1 and 2 only. ? Performed By: #### U [id number] #### [facility] (DEFAULT) [address] [address] Specific [place] Urine > High 1.001-1.035 [facility] Comment on above: Order Comment: For i ndwelling catheters, specimen collection is acceptable on catheter day 1 and 2 only. ? Performed By: #### U [id number] #### [facility] (DEFAULT) [address] [address] Squamous/Epithelial Cells 6-10/hpf = 2+ Abnormal 0-2/hpf, 3-5/hpf = 1+ [facility] Comment on above: Order Comment: For i ndwelling catheters, specimen collection is acceptable on catheter day 1 and 2 only. ? Performed By: #### U [id number] #### [facility] (DEFAULT) [address] [address] Urobilinogen Urine 0.2 E.U./dL Normal 0.2 E.U/d L, 1.0 E.U/dL [facility] Comment on above: Order Comment: For i ndwelling catheters, specimen collection is acceptable on catheter day 1 and 2 only. ? Performed By: #### U [id number] #### [facility] (DEFAULT) [address] [address] WBC Urine 6 - 10 Abnormal 0 - 5 [facility] Comment on above: Order Comment: For i ndwelling catheters, specimen collection is acceptable on catheter day 1 and 2 only. ? Performed By: #### U [id number] #### [facility] (DEFAULT) [address] [place] [address] Absolute lymphocyte countOrd ered By: Oliver Briggs on 05-30-2023 Lymphocytes Auto (Unsp spec) [#/Vol] 1.24 10*3/uL 0.83-4.51 [facility] Activated partial thrombopla stin time (aPTT) in platelet poor plasma by coagulation aOrdered By: Oliver Briggs on 05-30-2023 aPTT Coag (PPP) [Time] 31.3 s 24.1-36.2 [facility] Automated lymphocyte count a s percentage of total leukocytesOrdered By: Oliver Briggs on 05-30-2023 Lymphocytes/100 WBC Auto (Unsp spec) 22.0 % 19-41 [facility] Basophil percentageOrdered B y: Oliver Briggs on 05-30-2023 Basophils/100 WBC (Bld) 0.5 % 0-1 W [facility] Bilirubin [Mass/Vol] 0.40 mg/dL 0.20-1.00 [facility] Comment on above: For patients on eltr ombopag therapy, use of [place] TBIL is not recommended. Chloride [Moles/Vol] 108 mmol/L 98-107 [facility] Eosinophils/100 WBC (Bld) 1.2 % 0-5 [facility] Glucose [Mass/Vol] 102 mg/dL 74-106 [facility] Comment on above: Fasting Glucose resu lt from 100 to 125 mg/dL suggests IMPAIRED HOMEOSTASIS per A.D.A. criteria. Hemoglobin (Bld) [Mass/Vol] 13.4 g/dL 12.0-15.0 [facility] Monocytes/100 WBC (Bld) 8.9 % 0-10 W [facility] Neutrophils (Bld) [#/Vol] 3.8 10*3/uL 2.0-7.7 [facility] Neutrophils/100 WBC (Bld) 67.0 % 47-70 [facility] Potassium [Moles/Vol] 3.6 mmol/L 3.5-5.1 [facility] Protein [Mass/Vol] 8.1 g/dL 6.4-8.2 [facility] Sodium [Moles/Vol] 138 mmol/L 136-145 [facility] WBC (Bld) [#/Vol] 5.6 10*3/uL 4.4-11.0 [facility] Basophil percentageOrdered B y: ED PROVIDER on 05-30-2023 Basophil percentage 0 SEEN /hpf 0-5 [facility] Bilirubin Test strip Ql (U)O rdered By: ED PROVIDER on 05-30-2023 Bilirubin Ql (U) Negative Negative [facility] CALCIUMon 05-30-2023 Calcium [Mass/Vol] 8.5 mg/dL Low 8.6-10.5 [facility] Comment on above: Performed By: #### T YPEC #### [facility] (DEFAULT) [address] [address] Calcium [Mass/Vol] 8.5 mg/dL Low 8.6 - 10. 5 mg/dL [facility] Interpretation and review of laboratory results Abnormal [facility] CBC AND ELECTRONIC DIFFon Abs Baso Auto < Normal 0.00-0.15 [facility] Comment on above: Performed By: #### L [id number], A1CB #### [facility] (DEFAULT) [address] [address] Basophils/100 WBC (Bld) 0.3 % Normal [facility] Comment on above: Performed By: #### L AB980, A1CB #### [facility] (DEFAULT) [address] [address] DIFF STATUS Electronic Differential Normal [facility] Comment on above: Performed By: #### L AB980, A1CB #### [facility] (DEFAULT) [address] [address] Eosinophils (Bld) [#/Vol] 0.07 10*3/uL Normal 0.00-0.42 [facility] Comment on above: Performed By: #### L [id number], A1CB #### [facility] (DEFAULT) [address] [place] [address] Eosinophils/100 WBC (Bld) 1.1 % Normal [facility] Comment on above: Performed By: #### L [id number], A1CB #### [facility] (DEFAULT) [address] [place] [address] Hematocrit (Bld) [Volume fraction] 38.6 % Normal 34.9-44.3 [facility] Comment on above: Performed By: #### L [id number], A1CB #### [facility] (DEFAULT) [address] [place] [address] Hemoglobin (Bld) [Mass/Vol] 12.6 g/dL Normal 11.4-15.2 [facility] Comment on above: Performed By: #### L [id number], A1CB #### [facility] (DEFAULT) [address] [place] [address] Immature Grans % 0.3 % Normal [facility] Comment on above: Performed By: #### L AB980, A1CB #### [facility] (DEFAULT) [address] [place] [address] Immature Grans Absolute < Normal <=0.08 [facility] Comment on above: Performed By: #### L AB980, A1CB #### [facility] (DEFAULT) [address] [place] [address] Lymphocytes (Bld) [#/Vol] 1.63 10*3/uL Normal 1.16-3.51 [facility] Comment on above: Performed By: #### L AB980, A1CB #### [facility] (DEFAULT) [address] [address] Lymphocytes/100 WBC (Bld) 24.9 % Normal [facility] Comment on above: Performed By: #### L AB980, A1CB #### [facility] (DEFAULT) [address] [place] [address] MCV (RBC) [Entitic vol] 89.6 fL Normal 79.6-97.7 [facility] Comment on above: Performed By: #### L AB980, A1CB #### [facility] (DEFAULT) [address] [place] [address] Mean Cell Hgb 29.2 pg Normal 25.9-33.9 [facility] Comment on above: Performed By: #### L AB980, A1CB #### [facility] (DEFAULT) [address] [place] [address] Mean Cell Hgb Conc 32.6 g/dL Normal 31.4-35.9 [facility] Comment on above: Performed By: #### L AB980, A1CB #### [facility] (DEFAULT) [address] [place] [address] 48890 Monocytes (Bld) [#/Vol] 0.65 10*3/uL Normal 0.22-0.87 [facility] Comment on above: Performed By: #### L AB980, A1CB #### [facility] (DEFAULT) [address] [place] [address] 89548 Monocytes/100 WBC (Bld) 9.9 % Normal [facility] Comment on above: Performed By: #### L AB980, A1CB #### [facility] (DEFAULT) [address] [place] [address] 22303 Nucleated RBC 0.0 /100 WBC Normal <=0.2 [facility] Comment on above: Performed By: #### L AB980, A1CB #### [facility] (DEFAULT) [address] [place] [address] 04220 Platelet mean volume (Bld) [Entitic vol] 10.2 fL Normal 8.5-12.2 [facility] Comment on above: Performed By: #### L AB980, A1CB #### [facility] (DEFAULT) [address] [place] [address] 72556 Platelets (Bld) [#/Vol] 231 10*3/uL Normal 150-393 [facility] Comment on above: Performed By: #### L AB980, A1CB #### [facility] (DEFAULT) [address] [place] [address] 49269 RBC (Bld) [#/Vol] 4.31 10*6/uL Normal 3.91-5.04 [facility] Comment on above: Performed By: #### L AB980, A1CB #### [facility] (DEFAULT) [address] [place] [address] 49261 RBC Distribution 14.1 % Normal 10.8-14.9 [facility] Comment on above: Performed By: #### L AB980, A1CB #### [facility] (DEFAULT) [address] [place] [address] 37101 Segs + Bands Auto 63.5 % Normal [facility] Comment on above: Performed By: #### L AB980, A1CB #### [facility] (DEFAULT) [address] [place] [address] 71585 Segs + Bands,Absolute Auto 4.15 K/uL Normal 1.64-7.28 [facility] Comment on above: Performed By: #### L AB980, A1CB #### [facility] (DEFAULT) [address] [place] [address] 44365 WBC (Bld) [#/Vol] 6.54 10*3/uL Normal 3.99-11.19 [facility] Comment on above: Performed By: #### L AB980, A1CB #### [facility] (DEFAULT) [address] [place] [address] 01408 Basophils (Bld) [#/Vol] K/uL 0.00 - 0.15 K/uL [facility] Basophils/100 WBC (Bld) 0.3 % [facility] Differential cell count method Nom (Bld) Electronic Differential [facility] Eosinophils (Bld) [#/Vol] 0.07 10*3/uL 0.00 - 0.42 K/uL [facility] Eosinophils/100 WBC (Bld) 1.1 % [facility] Erythrocyte distribution width (RBC) [Ratio] 14.1 % 10.8 - 14.9 % [facility] Hematocrit (Bld) [Volume fraction] 38.6 % 34.9 - 44.3 % [facility] Hemoglobin (Bld) [Mass/Vol] 12.6 g/dL 11.4 - 15.2 g/dL [facility] Immature granulocytes (Bld) [#/Vol] K/uL NINF - 0.08 K/uL [facility] Immature granulocytes/100 WBC (Bld) 0.3 % [facility] Lymphocytes (Bld) [#/Vol] 1.63 10*3/uL 1.16 - 3.51 K/uL [facility] Lymphocytes/100 WBC (Bld) 24.9 % [facility] MCH (RBC) [Entitic mass] 29.2 pg 25.9 - 33.9 pg [facility] MCHC (RBC) [Mass/Vol] 32.6 g/dL 31.4 - 35.9 g/dL [facility] MCV (RBC) [Entitic vol] 89.6 fL 79.6 - 97.7 fL [facility] Monocytes (Bld) [#/Vol] 0.65 10*3/uL 0.22 - 0.87 K/uL [facility] Monocytes/100 WBC (Bld) 9.9 % [facility] Neutrophils (Bld) [#/Vol] 4.15 10*3/uL 1.64 - 7.28 K/uL [facility] Nucleated RBC/100 WBC (Bld) [Ratio] 0.0 % [facility] Platelet mean volume (Bld) [Entitic vol] 10.2 fL 8.5 - 12.2 fL [facility] Platelets (Bld) [#/Vol] 231 10*3/uL 150 - 393 K /uL [facility] RBC (Bld) [#/Vol] 4.31 10*6/uL [facility] Segmented neutrophils/100 WBC (Bld) 63.5 % [facility] WBC (Bld) [#/Vol] 6.54 10*3/uL 3.99 - 11. 19 K/uL [facility] CHM 7 - EDon 05-30-2023 Anion gap [Moles/Vol] 10 mmol/L Normal 7-17 [facility] Comment on above: Performed By: #### T YPEC #### [facility] (DEFAULT) [address] [address] Chloride [Moles/Vol] 105 mmol/L Normal 98-108 [facility] Comment on above: Performed By: #### T YPEC #### [facility] (DEFAULT) [address] [address] CO2 [Moles/Vol] 26 mmol/L Normal 21-31 [facility] Comment on above: Performed By: #### T YPEC #### [facility] (DEFAULT) [address] [address] Creatinine [Mass/Vol] 0.80 mg/dL Normal 0.50-1.20 [facility] Comment on above: Performed By: #### T YPEC #### [facility] (DEFAULT) [address] [address] GFR/1.73 sq M.predicted among non-blacks MDRD (S/P/Bld) [Vol rate/Area] 81 mL/min/{1.73_m2} Normal >=60 [facility] Comment on above: Result Comment: Repo rted eGFR is based on the CKD-EPI 2020 equation using creatinine, age, and sex. Performed By: #### T YPEC #### [facility] (DEFAULT) [address] [address] Glucose [Mass/Vol] 96 mg/dL Normal 70-99 [facility] Comment on above: Performed By: #### T YPEC #### [facility] (DEFAULT) [address] [place] [address] Osmolality [Osmolality] 286 mosm/kg Normal 278-305 [facility] Comment on above: Performed By: #### T YPEC #### [facility] (DEFAULT) [address] [place] [address] Potassium [Moles/Vol] 3.7 mmol/L Normal 3.5-5.0 [facility] Comment on above: Performed By: #### T YPEC #### [facility] (DEFAULT) [address] [place] [address] Sodium [Moles/Vol] 137 mmol/L Normal 135-145 [facility] Comment on above: Performed By: #### T YPEC #### [facility] (DEFAULT) [address] [place] [address] 21702 Urea nitrogen [Mass/Vol] 13 mg/dL Normal 7-25 [facility] Comment on above: Performed By: #### T YPEC #### [facility] (DEFAULT) [address] [place] [address] 82610 Urea nitrogen/Creatinine [Mass ratio] 16 mg/mg Normal [facility] Comment on above: Performed By: #### T YPEC #### [facility] (DEFAULT) [address] [place] [address] Anion gap [Moles/Vol] 10 mmol/L 7 - 17 mmol/L [facility] Chloride [Moles/Vol] 105 mmol/L 98 - 10 8 mmol/L [facility] CO2 [Moles/Vol] 26 mmol/L 21 - 31 mmol/L [facility] Creatinine [Mass/Vol] 0.80 mg/dL 0.50 - 1.20 mg/dL [facility] eGFR, CKD-EPI, Female 81 - PINF [facility] Comment on above: Reported eGFR is bas ed on the CKD-EPI 2020 equation using creatinine, age, and sex. Glucose [Mass/Vol] 96 mg/dL 70 - 99 mg/dL [facility] Osmolality Calc [Osmolality] 286 [facility] Potassium [Moles/Vol] 3.7 mmol/L 3.5 - 5.0 mmol/L [facility] Sodium [Moles/Vol] 137 mmol/L 135 - 145 mmol/L [facility] Urea nitrogen [Mass/Vol] 13 mg/dL 7 - 25 mg/dL [facility] Urea nitrogen/Creatinine [Mass ratio] 16 mg/mg [facility] CT ANGIO BRAIN/NECKon 2023 IMPRESSION: 1. No hemodynamically significant stenosis, occlusion, aneurysm, dissection, or arteriovenous malformation of the major arteries of the head and neck. 2. Right frontal lobe hyperattenuating lesion measures approximately 108 Hounsfield units on this exam versus approximately 75 HU on the contemporaneous noncontrasted CT, suggestive of and underlying enhancing mass. This can be further evaluated with nonemergent MRI of the brain. I personally viewed and interpreted these images and I have reviewed and approved this report. OLOGY EXAM: CT ANGIO BRAIN/NECK, 05/30/2023 21:39 PM COMPARISON: CT head dated May 30, 2023 CLINICAL INDICATIONS: 67 years Female Suspected Stroke RELEVANT CLINICAL HISTORY: Short-term memory issues TECHNIQUE: A series of transaxial multislice computerized tomographic images are obtained with helical technique from top of aortic arch to vertex following bolus intravenous administration of nonionic contrast. Axial thin section source images, as well as sagittal and coronal thin section reformats, were provided at the scanner. Additional multiplanar and 3D reconstructions were provided. CONTRAST: iohexol (OMNIPAQUE) 350 MG/ML injection 1-171 mL; Route of Administration: Intravenous; Dose: 96 mL. FINDINGS: CT ANGIOGRAM NECK: AORTIC ARCH: Conventional anatomic origin of the great vessels. No significant stenosis. RIGHT CAROTID ARTERY: Common carotid artery is patent and normal in caliber. Internal carotid artery origin at the bifurcation is patent and normal in caliber. More distal cervical segments of the internal carotid artery are patent and normal in caliber. LEFT CAROTID ARTERY: Common carotid artery demonstrates atherosclerotic plaque, without significant stenosis. Internal carotid artery origin at the bifurcation is patent and normal in caliber. More distal cervical segments of the internal carotid artery are patent and normal in caliber. RIGHT VERTEBRAL ARTERY: Origin is patent. More distal cervical segments are patent and normal in caliber. 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 LEFT VERTEBRAL ARTERY: Origin is patent. More distal cervical segments are patent and normal in caliber. Developmentally dominant and larger in caliber compared to the right vertebral artery. OTHER: No dissection or pseudoaneurysm. CT ANGIOGRAM HEAD: INTERNAL CAROTID ARTERIES: Atherosclerotic calcifications, without significant stenosis. ANTERIOR CEREBRAL ARTERIES: Patent and normal in caliber. There is a trifurcation pattern of the anterior cerebral arteries. MIDDLE CEREBRAL ARTERIES: Patent and normal in caliber. POSTERIOR CEREBRAL ARTERIES: Patent and normal in caliber. origin of the left DEPUTY HEAD is noted. VERTEBRAL ARTERIES: Patent and normal in caliber. Right vertebral artery is developmentally hypoplastic and largely terminates at the level of PICA. BASILAR ARTERY: Patent. No significant stenosis. OTHER: No aneurysm or AVM. ADDITIONAL FINDINGS: Right frontal lobe mass, better seen on same day CT head measures approximately 108 Hounsfield units. This location measured approximately 75 HU on the same day noncontrast head CT, suggestive of an underlying enhancing mass. RADIOLOGY Zeke Dorantes MD - 05/30/2023 EXAM: CT ANGIO BRAIN/NECK, 05/30/2023 21:39 PM COMPARISON: CT head dated May 30, 2023 CLINICAL INDICATIONS: 67 years Female Suspected Stroke RELEVANT CLINICAL HISTORY: Short-term memory issues TECHNIQUE: A series of transaxial multislice computerized tomographic images are obtained with helical technique from top of aortic arch to vertex following bolus intravenous administration of nonionic contrast. Axial thin section source images, as well as sagittal and coronal thin section reformats, were provided at the scanner. Additional multiplanar and 3D reconstructions were provided. CONTRAST: iohexol (OMNIPAQUE) 350 MG/ML injection 1-171 mL; Route of Administration: Intravenous; Dose: 96 mL. FINDINGS: CT ANGIOGRAM NECK: AORTIC ARCH: Conventional anatomic origin of the great vessels. No significant stenosis. RIGHT CAROTID ARTERY: Common carotid artery is patent and normal in caliber. Internal carotid artery origin at the bifurcation is patent and normal in caliber. More distal cervical segments of the internal carotid artery are patent and normal in caliber. LEFT CAROTID ARTERY: Common carotid artery demonstrates atherosclerotic plaque, without significant stenosis. Internal carotid artery origin at the bifurcation is patent and normal in caliber. More distal cervical segments of the internal carotid artery are patent and normal in caliber. RIGHT VERTEBRAL ARTERY: Origin is patent. More distal cervical segments are patent and normal in caliber. 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 LEFT VERTEBRAL ARTERY: Origin is patent. More distal cervical segments are patent and normal in caliber. Developmentally dominant and larger in caliber compared to the right vertebral artery. OTHER: No dissection or pseudoaneurysm. CT ANGIOGRAM HEAD: INTERNAL CAROTID ARTERIES: Atherosclerotic calcifications, without significant stenosis. ANTERIOR CEREBRAL ARTERIES: Patent and normal in caliber. There is a trifurcation pattern of the anterior cerebral arteries. MIDDLE CEREBRAL ARTERIES: Patent and normal in caliber. POSTERIOR CEREBRAL ARTERIES: Patent and normal in caliber. origin of the left DEPUTY HEAD is noted. VERTEBRAL ARTERIES: Patent and normal in caliber. Right vertebral artery is developmentally hypoplastic and largely terminates at the level of PICA. BASILAR ARTERY: Patent. No significant stenosis. OTHER: No aneurysm or AVM. ADDITIONAL FINDINGS: Right frontal lobe mass, better seen on same day CT head measures approximately 108 Hounsfield units. This location measured approximately 75 HU on the same day noncontrast head CT, suggestive of an underlying enhancing mass. IMPRESSION IMPRESSION: 1. No hemodynamically significant stenosis, occlusion, aneurysm, dissection, or arteriovenous malformation of the major arteries of the head and neck. 2. Right frontal lobe hyperattenuating lesion measures approximately 108 Hounsfield units on this exam versus approximately 75 HU on the contemporaneous noncontrasted CT, suggestive of and underlying enhancing mass. This can be further evaluated with nonemergent MRI of the brain. I personally viewed and interpreted these images and I have reviewed and approved this report. [facility] Radiology Study observation (narrative) [facility] CT Head limitedon 05-30-2023 IMPRESSION: 1. High-attenuating lesion at the superior right frontal lobe with surrounding vasogenic edema raises concern for hemorrhagic mass versus intraparenchymal hemorrhage; this is stable from prior outside hospital same-day head CT. 2. Small amount of subarachnoid hemorrhage within sulci along the medial margin of the right frontal lobe. 3. Recommend nonemergent MRI brain with and without contrast to assess for an underlying mass lesion. Findings were discussed with Hernesto Montelongo at 2152 on 05/30/[address] Kelsi Elias. I personally viewed and interpreted these images and I have reviewed and approved this report. OLOGY EXAM: CT STROKE HEAD-STROKE ALERT ONLY, 05/30/2023 9:36 PM COMPARISON: Compared to same day outside hospital CT head. CLINICAL INDICATIONS: 67 years Female Suspected Stroke RELEVANT CLINICAL HISTORY: Short-term memory issues TECHNIQUE: A series of transaxial computerized tomographic images are obtained from base of skull to vertex without intravenous contrast. Axial whole-head and thin section posterior fossa slices are provided. Reformats: Sagittal and coronal. FINDINGS: Small wedge-shaped area of encephalomalacia of the anterior right frontal lobe, best appreciated on series 903 image 33, suggestive of a remote infarct. Patchy periventricular white matter hypoattenuation is noted which is non-specific, but likely due to chronic small vessel ischemic changes. Tiny remote lacunar infarct or dilated perivascular space within the anterior limb of the right internal capsule. A 3.1 x 2.7 cm focal hyperdense lesion in the superior right frontal lobe which extends from the surface of the brain to the magdaleno-white matter junction. There is surrounding vasogenic edema, raising concern for a hemorrhagic mass or intraparenchymal hemorrhage. Small amount of subarachnoid hemorrhage within sulci along the medial margin of the right frontal lobe, best seen on series 903 image 44. No significant mass effect or midline shift. Ventricles are normal in size and configuration for patient age. Skull appears intact. Hyperostosis frontalis internus. Visualized orbits appear normal. Visualized paranasal sinuses are clear. Visualized mastoid air cells are clear. Atherosclerotic calcifications of the major arteries at the skull base are noted. RADIOLOGY Zeke Dorantes MD - 05/30/2023 EXAM: CT STROKE HEAD-STROKE ALERT ONLY, 05/30/2023 9:36 PM COMPARISON: Compared to same day outside hospital CT head. CLINICAL INDICATIONS: 67 years Female Suspected Stroke RELEVANT CLINICAL HISTORY: Short-term memory issues TECHNIQUE: A series of transaxial computerized tomographic images are obtained from base of skull to vertex without intravenous contrast. Axial whole-head and thin section posterior fossa slices are provided. Reformats: Sagittal and coronal. FINDINGS: Small wedge-shaped area of encephalomalacia of the anterior right frontal lobe, best appreciated on series 903 image 33, suggestive of a remote infarct. Patchy periventricular white matter hypoattenuation is noted which is non-specific, but likely due to chronic small vessel ischemic changes. Tiny remote lacunar infarct or dilated perivascular space within the anterior limb of the right internal capsule. A 3.1 x 2.7 cm focal hyperdense lesion in the superior right frontal lobe which extends from the surface of the brain to the magdaleno-white matter junction. There is surrounding vasogenic edema, raising concern for a hemorrhagic mass or intraparenchymal hemorrhage. Small amount of subarachnoid hemorrhage within sulci along the medial margin of the right frontal lobe, best seen on series 903 image 44. No significant mass effect or midline shift. Ventricles are normal in size and configuration for patient age. Skull appears intact. Hyperostosis frontalis internus. Visualized orbits appear normal. Visualized paranasal sinuses are clear. Visualized mastoid air cells are clear. Atherosclerotic calcifications of the major arteries at the skull base are noted. IMPRESSION IMPRESSION: 1. High-attenuating lesion at the superior right frontal lobe with surrounding vasogenic edema raises concern for hemorrhagic mass versus intraparenchymal hemorrhage; this is stable from prior outside hospital same-day head CT. 2. Small amount of subarachnoid hemorrhage within sulci along the medial margin of the right frontal lobe. 3. Recommend nonemergent MRI brain with and without contrast to assess for an underlying mass lesion. Findings were discussed with Hernesto Montelongo at 2152 on 05/30/[address] Kelsi Elias. I personally viewed and interpreted these images and I have reviewed and approved this report. [facility]narrative[facility] limitedOrdered By: Ammon Dorantes on 05-30-2023 [facility] Work Phone: Determination of erythrocyte mean corpuscular volume (MCV)Ordered By: Oliver Briggs on 05-30-2023 MCV (RBC) [Entitic vol] 89.7 fL 81-99 [facility] Erythrocyte distribution wid th ratioOrdered By: Oliver Briggs on 05-30-2023 Erythrocyte distribution width (RBC) [Ratio] 14.2 % 11.6-14.6 [facility] Erythrocyte distribution wid th standard deviationOrdered By: Oliver Briggs on 05-30-2023 Erythrocyte distribution width (RBC) [Entitic vol] 47.1 fL 35.1-43.9 [facility] GLUCOSE POCon 05-30-2023 Glucose [Mass/Vol] 105 mg/dL High 70 - 99 mg/dL [facility] Interpretation and review of laboratory results Abnormal [facility] POC Sample Type CAPBL [facility] Test performed at address of the patient encounter. [facility] HEMOGLOBIN A1Con 05-30-2023 Glucose [Mass/Vol] 126 mg/dL Normal [facility] Comment on above: Performed By: #### L AB980, A1CB #### [facility] (DEFAULT) [address] [address] Hemoglobin A1C HPLC 6.0 % High 4.7-5.6 [facility] Comment on above: Performed By: #### L AB980, A1CB #### [facility] (DEFAULT) [address] [address] HEPATIC FUNCTION PANELon Albumin [Mass/Vol] 3.9 g/dL Normal 3.5-5.0 [facility] Comment on above: Performed By: #### T YPEC #### [facility] (DEFAULT) [address] [place] [address] ALP [Catalytic activity/Vol] 64 U/L Normal 32-126 [facility] Comment on above: Performed By: #### T YPEC #### [facility] (DEFAULT) [address] [place] [address] ALT [Catalytic activity/Vol] 16 U/L Normal 9-48 [facility] Comment on above: Performed By: #### T YPEC #### [facility] (DEFAULT) [address] [place] [address] AST [Catalytic activity/Vol] 18 U/L Normal 10-39 [facility] Comment on above: Performed By: #### T YPEC #### [facility] (DEFAULT) [address] [place] [address] Bilirubin [Mass/Vol] 0.5 mg/dL Normal <1.5 [facility] Comment on above: Performed By: #### T YPEC #### [facility] (DEFAULT) [address] [place] [address] Bilirubin.indirect [Mass/Vol] 0.1 mg/dL Normal <0.3 [facility] Comment on above: Performed By: #### T YPEC #### [facility] (DEFAULT) [address] [place] [address] Protein [Mass/Vol] 6.4 g/dL Normal 6.4-8.3 [facility] Comment on above: Performed By: #### T YPEC #### [facility] (DEFAULT) [address] [place] [address] Albumin [Mass/Vol] 3.9 g/dL 3.5 - 5.0 g/dL [facility] ALP [Catalytic activity/Vol] 64 U/L 32 - 126 U/L [facility] ALT [Catalytic activity/Vol] 16 U/L 9 - 48 U/L [facility] AST [Catalytic activity/Vol] 18 U/L 10 - 39 U/L [facility] Bilirubin [Mass/Vol] 0.5 mg/dL NINF - 1.5 mg/dL [facility] Bilirubin.direct [Mass/Vol] 0.1 mg/dL NINF - 0.3 mg/dL [facility] Protein [Mass/Vol] 6.4 g/dL 6.4 - 8.3 g/dL OS [facility] HIGH SENSITIVITY TROPONIN I - SINGLE ORDERon 05-30-2023 hs-Troponin I <3 Normal <34 [facility] Comment on above: Order Comment: Acute Coronary Syndrome (ACS): Initial Evaluation and Management:[email or web address] Performed By: #### P TPTT #### [facility] (DEFAULT) [address] [place] [address] Interpretation and review of laboratory results Normal [facility] Troponin I.cardiac High sensitivity method [Mass/Vol] ng/L NINF - 34 ng/L [facility] Hematocrit Auto (Bld) [Volum e fraction]Ordered By: Oliver Briggs on 05-30-2023 Hematocrit (Bld) [Volume fraction] 41.0 % 37-47 [facility] Immature granulocytes/100 WB C Auto (Bld)Ordered By: Oliver Briggs on 05-30-2023 Immature granulocytes/100 WBC (Bld) 0.400 % 0.0-0.9 [facility] Comment on above: IG% - Immature Granu locytes (promyelocytes, myelocytes and metamyelocytes) > 1% indicates that a LEFT SHIFT is Present. International normalized rat io (INR) calculationOrdered By: Oliver Briggs on 05-30-2023 INR Coag (PPP) [Relative time] 1.0 {INR} [facility] Ketones Test strip Ql (U)Ord ered By: ED PROVIDER on 05-30-2023 Ketones Ql (U) Negative Negative [facility] LIPID PANEL WITH REFLEX TO M EASURED LDLon 05-30-2023 Calculated LDL Cholesterol 74 mg/dL Normal 0-99 [facility] Comment on above: Result Comment: [<10 0 mg/dL: Optimal] [100-129 mg/dL: Near Optimal] [130-159 mg/dL: Borderline High] [160-189 mg/dL: High] [>189 mg/dL: Very High] Performed By: #### T YPEC #### [facility] (DEFAULT) [address] [place] [address] Cholesterol [Mass/Vol] 140 mg/dL Normal <200 [facility] Comment on above: Result Comment: [<20 0 mg/dL: Desirable] [200-239 mg/dL: Borderline High] [>239 mg/dL: High] Performed By: #### T YPEC #### [facility] (DEFAULT) [address] [address] Cholesterol in HDL [Mass/Vol] 54 mg/dL Normal >=40 [facility] Comment on above: Result Comment: [<40 mg/dL: Low (High Risk)] [>59 mg/dL: High (Low Risk)] Performed By: #### T YPEC #### [facility] (DEFAULT) [address] [address] Non HDL Cholesterol 86 mg/dL Normal <130 [facility] Comment on above: Performed By: #### T YPEC #### [facility] (DEFAULT) [address] [address] Total Cholesterol/HDL Ratio 2.6 Normal <4.5 [facility] Comment on above: Performed By: #### T YPEC #### [facility] (DEFAULT) [address] [address] Triglyceride [Mass/Vol] 61 mg/dL Normal <150 [facility] Comment on above: Result Comment: [<15 0 mg/dL: Desirable] [150-199 mg/dL: Borderline] [200-499 mg/dL: High] [>500 mg/dL: Very High] Performed By: #### T YPEC #### [facility] (DEFAULT) [address] [address] Laboratory - Chemistry and C hemistry - challengeOrdered By: Oliver Briggs on 05-30-2023 Albumin/Globulin [Mass ratio] 1.0 {ratio} 0.9-2.4 [facility] ALP [Catalytic activity/Vol] 86 U/L 45-117 [facility] ALT [Catalytic activity/Vol] 29 U/L 13-56 [facility] CO2 [Moles/Vol] 29.0 mmol/L 21.0-32.0 [facility] Globulin (S) [Mass/Vol] 4.0 g/dL 2.2-4.2 [facility] Urea nitrogen/Creatinine [Mass ratio] 14.6 mg/mg 10-20 [facility] Laboratory - Chemistry and C hemistry - challengeon 05-30-2023 Bilirubin Ql (U) Moderate (2+) [facility] Glucose Ql (U) Negative [facility] Ketones Ql (U) Negative [facility] pH (U) 6.0 [pH] [facility] Specific gravity (U) [Rel density] 1.015 [facility] Urobilinogen (U) [Mass/Vol] Negative [facility] Laboratory - CoagulationOrde red By: Oliver Briggs on 05-30-2023 PT Coag (PPP) [Time] 13.0 s 11.7-14.9 [facility] Laboratory - Hematology and Cell countsOrdered By: Oliver Briggs on 05-30-2023 MCH (RBC) [Entitic mass] 29.3 pg 27.0-32.0 [facility] MCHC (RBC) [Mass/Vol] 32.7 g/dL - [facility] Nucleated RBC/100 WBC (Bld) [Ratio] 0 % 0-5 [facility] Platelets (Bld) [#/Vol] 250 10*3/uL 150-450 [facility] Laboratory - Hematology and Cell countson 05-30-2023 Hemoglobin Ql (U) Small [facility] Laboratory - Specimen inform ationon 05-30-2023 Clarity (U) Slightly Hazy [facility] Color (U) YELLOW [facility] Laboratory - Urinalysison Nitrite Ql (U) Negative [facility] Protein Ql (U) Negative [facility] MAGNESIUMon 05-30-2023 Magnesium [Mass/Vol] 2.1 mg/dL Normal 1.6-2.6 [facility] Comment on above: Performed By: #### T YPEC #### [facility] (DEFAULT) [address] [place] [address] Magnesium [Mass/Vol] 2.1 mg/dL 1.6 - 2 .6 mg/dL [facility] Mucus LM Ql (Urine sed)Order ed By: ED PROVIDER on 05-30-2023 Mucus Ql (Urine sed) 0 SEEN /hpf [facility] Nitrite Test strip Ql (U)Ord ered By: ED PROVIDER on 05-30-2023 Nitrite Ql (U) Negative Negative [facility] No Panel Informationon 05-30 Interpretation and review of laboratory results Normal [facility] Urine Leukocytes Negatve [facility] Urine Non-Hemolyzed Blood [facility] No Panel InformationOrdered By: Oliver Briggs on 05-30-2023 Estimated Creatinine Clearance Calc 72.93 ml/min [facility] Estimated GFR (MDRD) Amer 82 mL/min >60 [facility] Comment on above: GFR Calc Estimated GFR (MDRD) Non-Af Amer 67 mL/min >60 [facility] Comment on above: Non- GFR Calc No Panel InformationOrdered By: ED PROVIDER on 05-30-2023 Urine RBC 0-5 SEEN /hpf 0-5 [facility] PHOSPHATE, INORGANICon 05-30 Phosphorous 3.5 mg/dL Normal 2.2-4.6 [facility] Comment on above: Performed By: #### T YPEC #### [facility] (DEFAULT) [address] [address] Phosphate [Mass/Vol] 3.5 mg/dL 2.2 - 4 .6 mg/dL [facility] PTINR-STROKEon 05-30-2023 INR Coag (PPP) [Relative time] 1.1 {INR} Normal 0.9-1.1 [facility] Comment on above: Performed By: #### P TPTT #### [facility] (DEFAULT) [address] [address] PT Coag (PPP) [Time] 13.6 s Normal 11.9-14.2 [facility] Comment on above: Performed By: #### P TPTT #### [facility] (DEFAULT) [address] [address] INR Coag (Bld) [Relative time] 1.1 {INR} 0.9 - 1.1 [facility] Interpretation and review of laboratory results Normal [facility] PT Coag (PPP) [Time] 13.6 s [facility] PTTon 05-30-2023 aPTT Coag (Bld) [Time] 30.9 s Normal 24.0-34.3 [facility] Comment on above: Performed By: #### P TPTT #### [facility] (DEFAULT) [address] [place] [address] aPTT Coag (PPP) [Time] 30.9 s [facility] Interpretation and review of laboratory results Normal [facility] Platelet mean volume Shawn-Ec ker (Bld) [Entitic vol]Ordered By: Oliver Briggs on 05-30-2023 Platelet mean volume (Bld) [Entitic vol] 10.5 fL 6.2-12.0 [facility] Protein Test strip Ql (U)Ord ered By: ED PROVIDER on 05-30-2023 Protein Ql (U) Negative Negative [facility] RBC Auto (Bld) [#/Vol]Ordere d By: Oliver Briggs on 05-30-2023 RBC (Bld) [#/Vol] 4.57 10*6/uL 4.2-5.4 [facility] Serum or plasma calcium tim urement (mass/volume)Ordered By: Oliver Briggs on 05-30-2023 Calcium [Mass/Vol] 9.9 mg/dL 8.5-10.1 [facility] Serum or plasma creatinine m easurement (mass/volume)Ordered By: Oliver Briggs on 05-30-2023 Creatinine [Mass/Vol] 0.89 mg/dL 0.55-1.02 [facility] Comment on above: The validity of the calculated GFR & GFRAA in patients over 70 years has not been determined. Clinical correlation is essential. Serum or plasma urea nitroge n measurement (mass/volume)Ordered By: Oliver Briggs on 05-30-2023 Urea nitrogen [Mass/Vol] 13 mg/dL 7-18 [facility] Squamous epithelial cells de tection in urine sediment by light microscopyOrdered By: ED PROVIDER on 05-30-2023 Epithelial cells.squamous LM Ql (Urine sed) 0-5 SEEN /hpf 5-10 [facility] TYPE AND SCREENon 05-30-2023 ABO/RH(D) TYPE Positive [facility] Thin prep Papanicolaou smear with manual screeningOrdered By: Oliver Briggs on 05-30-2023 Thin prep Papanicolaou smear with manual screening 4.1 g/dL 3.2-5.0 [facility] Thin prep Papanicolaou smear with manual screening 19 U/L 15-37 [facility] Thin prep Papanicolaou smear with manual screening 1 5-15 [facility] URINALYSIS REFLEX TO CULTURE PERFORMABLEon 05-30-2023 Appearance (U) Clear Clear [facility] Bacteria LM Ql (Urine sed) ABSENT ABSENT [facility] Color (U) Yellow Yellow [facility] Epithelial cells.squamous LM Ql (Urine sed) 6-10/hpf = 2+ Abnormal 0-2/hpf, 3-5/hpf = 1+ [facility] Glucose Test strip (U) [Mass/Vol] Negative Negative [facility] Interpretation and review of laboratory results Abnormal [facility] Ketones (U) [Mass/Vol] Trace Abnormal Negative [facility] Leukocyte esterase Test strip Ql (U) Small Abnormal Negative [facility] Nitrite Ql (U) Negative Negative [facility] pH (U) 7.0 [pH] 5.0 - 7.0 [facility] Protein (U) [Mass/Vol] Negative Negative [facility] RBC (U) [#/Vol] Trace [facility] RBC LM.HPF (Urine sed) [#/Area] 3-5 Abnormal [facility] Specific gravity (U) [Rel density] High 1.001 - 1.035 [facility] Urobilinogen (U) [Mass/Vol] 0.2 E.U./dL 0.2 E.U/dL, 1.0 E.U/dL [facility] WBC LM.HPF (Urine sed) [#/Area] 6 - 10 Abnormal [facility] Urine blood detectionOrdered By: ED PROVIDER on 05-30-2023 RBC Ql (U) 10 /ul Negative [facility] Urine clarityOrdered By: ED PROVIDER on 05-30-2023 Clarity (U) Sl. Cloudy Clear [facility] Urine color determinationOrd ered By: ED PROVIDER on 05-30-2023 Color (U) Yellow Yellow [facility] Urine glucose detectionOrder ed By: ED PROVIDER on 05-30-2023 Glucose Ql (U) Normal mg/dl Normal [facility] Urine leukocyte esterase det ection by dipstickOrdered By: ED PROVIDER on 05-30-2023 Leukocyte esterase Test strip Ql (U) Negative Negative [facility] Urine pHOrdered By: ED PROVI SMITH on 05-30-2023 pH (U) 6.0 [pH] 5.0 - 8.0 [facility] Urine sediment bacteria coun t by microscopy (number/high power field)Ordered By: ED PROVIDER on 05-30-2023 Bacteria LM.HPF (Urine sed) [#/Area] 0 /[HPF] None Seen [facility] Urine specific gravity measu rementOrdered By: ED PROVIDER on 05-30-2023 Specific gravity (U) [Rel density] 1.010 1.002-1.030 [facility] Urine urobilinogen measureme ntOrdered By: ED PROVIDER on 05-30-2023 Urobilinogen Ql (U) Normal mg/dl Normal [facility] PT Progress Noteon 3 PT Progress Note Therapy Diagnosis Assessed Lumbosacral spondylosis (721.3) (M47.817) Radiculitis, lumbosacral (724.4) (M54.17) Plan Goals: Goals set and discussed today. Activity Limitation: Increase in LEFS score to 65/80 to demonstrate improved functional mobility of LLE with ambulation painfree, by week 4, goal partially met Pain: Decrease in baseline low back and L buttock pain 1/10 to demonstrate increased painfree functional mobility for ease of household management and sleeping, by week 4, goal partially met Range Of Motion/Joint Mobility: Improved gross lumbar AROM >/=85% for demonstrated increased painfree functional mobility to perform household management and community engagement, by week 4, goal partially met Strength: Improved gross B hip, knee, and core musculature strength 5/5 MMT for increased stability with prolonged standing and ambulation when completing chores at home, by week 4, goal partially met HEP, Patient will demonstrate compliance in their home exercise program in order to promote independence in self management of functional mobility., by week 2, goal met Planned interventions include: cryotherapy, dry needling, education/instructio n, home program, hot pack, manual therapy, therapeutic activities, therapeutic exercises and iastm/cupping. Frequency and duration: No further visits planned. Potential to achieve rehab goals is good Pt being placed on hold for 30 days at this time and is going to attempt independence with HEP. If pt does not elect to resume PT within 30 days, this will serve as his D/C. Refer back in future if necessary. Monitor home program. Patient instructed to call if problems. Assessment Pt reassessed this date by supervising PT with improvements noted in MMT, Lumbar AROM, and functional level. Pt brought all her HO's from previous session and re-organized HEP with new additions. Pt reported good understanding of all edu and updates to HEP made this date and is appropriate to attempt independence with HEP and symptom management at this time. Adult Risk Screening There are no spiritual/cultural practices/values/nee ds that are important to know Initial Fall Risk Screening: KAIA has not fallen in the last 6 months. KAIA has a fear of falling. She does not need assistance with sitting, standing or walking. Does not need assistance walking in her home. She does not need assistance in an unfamiliar setting. The patient is not using an assistive device. Fall Risk Screening: Patient is identified as a fall risk. Care Plan: Low Risk: Environmental for all patients and low risk patients: Offer assistance as needed or requested, keep environment free of obstacles, keep floor clean and dry, keep room lighting, wheelchair brakes on, bed/ stretcher locked and in low position if applicable, non-slip footwear if applicable, walker/cane available if needed, side rails up if applicable and pre-emptive toileting. Low: current pain. Please identify location of pain: L low back into buttock. Pain Quality: aching. The pain makes it hard for the patient to do these things: walking, sleep and house work. Living Will. Living Will: Living will on file. Healthcare POA: Health care proxy on file. Declaration of Mental Health Treatment: Declaration of mental health treatment on file. Domestic Violence Screen: Does not feel threatened or abused physically, emotionally or sexually. Do you feel UNSAFE? The patient feels safe in the home. Depression/Suicide Screening: During the past 2 weeks, the patient has not felt down, depressed or hopeless. During the past 2 weeks, the patient has not felt little interest or pleasure in doing things. Insurance Insurance reviewed Visit number: 11 Authorization not required after evaluation Insurance: Medicare Evaluating therapist: Radha Razo, PT, DPT PT dx: M54.50, R26.9 Med dx: M43.16, M53.3, M48.07, M51.37, M54.17, M47.817 The physical therapist of record is the therapist who assumes primary responsibility for patient management and as such is held accountable for the coordination, continuation and progression of the POC. This patient?s care and PT of record will be transferred from Radha Razo PT, DPT to Aleida Metzger PT effective as of 08/25/22 Onset Date: 2022 Medicare Certification Period: Beginnin2022 Endin2022 Subjective Patient reports:. Pt notes her MD is discussing performing an ablation if the next injections help more. Pt notes HEP going well but would like to re-organize them. Home program performing as directed: Yes. Precautions: Fall Risk: low PMHx: thyroid disorder, L wrist plate 04/29/2020,. Objective Ortho AROM back Flex: WFL with slow return to neutral in standing-->WFL Ext: 5%-->25%-->50%-->75% R- LF: 55%-->75%-->90% R rot: 55% pain-->90%-->100% L- LF: 40% p!-->75%-->90%-->90% L rot: 65%-->75%-->90%-->90 %-->100% MMT hip R- flex: 4-/5-->4+/5-->5/5 abd: 4/5-->4+/5-->4 (more content not included)... Normal [facility] Therapy Re-eval Noteon 11-17 Therapy Re-eval Note Therapy Diagnosis Assessed 1. Lumbosacral spondylosis (721.3) (M47.817) 2. Radiculitis, lumbosacral (724.4) (M54.17) Plan Goals: Goals set and discussed today. Activity Limitation: Increase in LEFS score to 65/80 to demonstrate improved functional mobility of LLE with ambulation painfree, by week 4, goal partially met Pain: Decrease in baseline low back and L buttock pain 1/10 to demonstrate increased painfree functional mobility for ease of household management and sleeping, by week 4, goal partially met Range Of Motion/Joint Mobility: Improved gross lumbar AROM >/=85% for demonstrated increased painfree functional mobility to perform household management and community engagement, by week 4, goal partially met Strength: Improved gross B hip, knee, and core musculature strength 5/5 MMT for increased stability with prolonged standing and ambulation when completing chores at home, by week 4, goal partially met HEP, Patient will demonstrate compliance in their home exercise program in order to promote independence in self management of functional mobility., by week 2, goal met Planned interventions include: cryotherapy, dry needling, education/instructio n, home program, hot pack, manual therapy, therapeutic activities, therapeutic exercises and iastm/cupping. Frequency and duration: No further visits planned. Potential to achieve rehab goals is good Pt being placed on hold for 30 days at this time and is going to attempt independence with HEP. If pt does not elect to resume PT within 30 days, this will serve as his D/C. Refer back in future if necessary. Monitor home program. Patient instructed to call if problems. Assessment Pt reassessed this date by supervising PT with improvements noted in MMT, Lumbar AROM, and functional level. Pt brought all her HO's from previous session and re-organized HEP with new additions. Pt reported good understanding of all edu and updates to HEP made this date and is appropriate to attempt independence with HEP and symptom management at this time. Adult Risk Screening There are no spiritual/cultural practices/values/nee ds that are important to know Initial Fall Risk Screening: KAIA has not fallen in the last 6 months. KAIA has a fear of falling. She does not need assistance with sitting, standing or walking. Does not need assistance walking in her home. She does not need assistance in an unfamiliar setting. The patient is not using an assistive device. Fall Risk Screening: Patient is identified as a fall risk. Care Plan: Low Risk: Environmental for all patients and low risk patients: Offer assistance as needed or requested, keep environment free of obstacles, keep floor clean and dry, keep room lighting, wheelchair brakes on, bed/ stretcher locked and in low position if applicable, non-slip footwear if applicable, walker/cane available if needed, side rails up if applicable and pre-emptive toileting. Low: current pain. Please identify location of pain: L low back into buttock. Pain Quality: aching. The pain makes it hard for the patient to do these things: walking, sleep and house work. Living Will. Living Will: Living will on file. Healthcare POA: Health care proxy on file. Declaration of Mental Health Treatment: Declaration of mental health treatment on file. Domestic Violence Screen: Does not feel threatened or abused physically, emotionally or sexually. Do you feel UNSAFE? The patient feels safe in the home. Depression/Suicide Screening: During the past 2 weeks, the patient has not felt down, depressed or hopeless. During the past 2 weeks, the patient has not felt little interest or pleasure in doing things. Insurance Insurance reviewed Visit number: 11 Authorization not required after evaluation Insurance: Medicare Evaluating therapist: Radha Razo, PT, DPT PT dx: M54.50, R26.9 Med dx: M43.16, M53.3, M48.07, M51.37, M54.17, M47.817 The physical therapist of record is the therapist who assumes primary responsibility for patient management and as such is held accountable for the coordination, continuation and progression of the POC. This patient?s care and PT of record will be transferred from Radha Razo PT, DPT to Aleida Metzger PT effective as of 08/25/22 Onset Date: 2022 Medicare Certification Period: Beginnin2022 Endin2022 Subjective Patient reports:. Pt notes her MD is discussing performing an ablation if the next injections help more. Pt notes HEP going well but would like to re-organize them. Home program performing as directed: Yes. Precautions: Fall Risk: low PMHx: thyroid disorder, L wrist plate 04/29/2020,. Objective Ortho AROM back Flex: WFL with slow return to neutral in standing-->WFL Ext: 5%-->25%-->50%-->75% R- LF: 55%-->75%-->90% R rot: 55% pain-->90%-->100% L- LF: 40% p!-->75%-->90%-->90% L rot: 65%-->75%-->90%-->90 %-->100% MMT hip R- flex: 4-/5-->4+/5-->5/5 abd: 4/5-->4+ (more content not included)... Normal [facility] PT Progress Noteon 3 PT Progress Note Therapy Diagnosis Assessed Radiculitis, lumbosacral (724.4) (M54.17) Lumbosacral spondylosis (721.3) (M47.817) Plan Goals: Goals set and discussed today. Activity Limitation: Increase in LEFS score to 65/80 to demonstrate improved functional mobility of LLE with ambulation painfree, by week 4, goal partially met Pain: Decrease in baseline low back and L buttock pain 1/10 to demonstrate increased painfree functional mobility for ease of household management and sleeping, by week 4, goal partially met Range Of Motion/Joint Mobility: Improved gross lumbar AROM >/=85% for demonstrated increased painfree functional mobility to perform household management and community engagement, by week 4, goal partially met Strength: Improved gross B hip, knee, and core musculature strength 5/5 MMT for increased stability with prolonged standing and ambulation when completing chores at home, by week 4, goal partially met HEP, Patient will demonstrate compliance in their home exercise program in order to promote independence in self management of functional mobility., by week 2, goal met Planned interventions include: cryotherapy, dry needling, education/instructio n, home program, hot pack, manual therapy, therapeutic activities, therapeutic exercises and iastm/cupping. Frequency and duration: 1 time(s) a week, for 4 weeks, for 4 visits. Potential to achieve rehab goals is good Pt to return within 30 days for final recheck Pt being placed on hold for 30 days at this time and is going to attempt independence with HEP. If pt does not elect to resume PT within 30 days, this will serve as his D/C. Refer back in future if necessary. Progress with POC, as tolerated. Monitor home program. Patient instructed to call if problems. Assessment Pt reassessed this date by supervising PT with improvements noted in MMT, Lumbar AROM, and functional level. Added nerve glides with good response. Pt reported good understanding of all edu and updates to HEP made this date and is appropriate to attempt independence with HEP and symptom management at this time. Adult Risk Screening There are no spiritual/cultural practices/values/nee ds that are important to know Initial Fall Risk Screening: KAIA has not fallen in the last 6 months. KAIA has a fear of falling. She does not need assistance with sitting, standing or walking. Does not need assistance walking in her home. She does not need assistance in an unfamiliar setting. The patient is not using an assistive device. Fall Risk Screening: Patient is identified as a fall risk. Care Plan: Low Risk: Environmental for all patients and low risk patients: Offer assistance as needed or requested, keep environment free of obstacles, keep floor clean and dry, keep room lighting, wheelchair brakes on, bed/ stretcher locked and in low position if applicable, non-slip footwear if applicable, walker/cane available if needed, side rails up if applicable and pre-emptive toileting. Low: current pain. Please identify location of pain: L low back into buttock. Pain Quality: aching. The pain makes it hard for the patient to do these things: walking, sleep and house work. Living Will. Living Will: Living will on file. Healthcare POA: Health care proxy on file. Declaration of Mental Health Treatment: Declaration of mental health treatment on file. Domestic Violence Screen: Does not feel threatened or abused physically, emotionally or sexually. Do you feel UNSAFE? The patient feels safe in the home. Depression/Suicide Screening: During the past 2 weeks, the patient has not felt down, depressed or hopeless. During the past 2 weeks, the patient has not felt little interest or pleasure in doing things. Insurance Insurance reviewed Visit number: 11 Authorization not required after evaluation Insurance: Medicare Evaluating therapist: Radha Razo, PT, DPT PT dx: M54.50, R26.9 Med dx: M43.16, M53.3, M48.07, M51.37, M54.17, M47.817 The physical therapist of record is the therapist who assumes primary responsibility for patient management and as such is held accountable for the coordination, continuation and progression of the POC. This patient?s care and PT of record will be transferred from Radha Razo PT, DPT to Aleida Metzger PT effective as of 08/25/22 Onset Date: 2022 Medicare Certification Period: Beginnin2022 Endin2022 Subjective Patient reports:. Notes her injection has been helping. She played pickle ball yesterday and her back was irritated but she tolerated ok. Notes the injection was a different type of injection. Home program performing as directed: Yes. Precautions: Fall Risk: low PMHx: thyroid disorder, L wrist plate 04/29/2020,. Objective Ortho AROM back Flex: WFL with slow return to neutral in standing-->WFL Ext: 5%-->25%-->50% R- LF: 55%-->75%--> R rot: 55% pain-->90%-->100% L- LF: 40% p!-->75%-->90% L rot: 65%-->75%-->90%-->90 % (more content not included)... Normal [facility] Therapy Re-eval Noteon 10-20 Therapy Re-eval Note Therapy Diagnosis Assessed 1. Radiculitis, lumbosacral (724.4) (M54.17) 2. Lumbosacral spondylosis (721.3) (M47.817) Plan Goals: Goals set and discussed today. Activity Limitation: Increase in LEFS score to 65/80 to demonstrate improved functional mobility of LLE with ambulation painfree, by week 4, goal partially met Pain: Decrease in baseline low back and L buttock pain 1/10 to demonstrate increased painfree functional mobility for ease of household management and sleeping, by week 4, goal partially met Range Of Motion/Joint Mobility: Improved gross lumbar AROM >/=85% for demonstrated increased painfree functional mobility to perform household management and community engagement, by week 4, goal partially met Strength: Improved gross B hip, knee, and core musculature strength 5/5 MMT for increased stability with prolonged standing and ambulation when completing chores at home, by week 4, goal partially met HEP, Patient will demonstrate compliance in their home exercise program in order to promote independence in self management of functional mobility., by week 2, goal met Planned interventions include: cryotherapy, dry needling, education/instructio n, home program, hot pack, manual therapy, therapeutic activities, therapeutic exercises and iastm/cupping. Frequency and duration: 1 time(s) a week, for 4 weeks, for 4 visits. Potential to achieve rehab goals is good Pt to return within 30 days for final recheck Pt being placed on hold for 30 days at this time and is going to attempt independence with HEP. If pt does not elect to resume PT within 30 days, this will serve as his D/C. Refer back in future if necessary. Progress with POC, as tolerated. Monitor home program. Patient instructed to call if problems. Assessment Pt reassessed this date by supervising PT with improvements noted in MMT, Lumbar AROM, and functional level. Added nerve glides with good response. Pt reported good understanding of all edu and updates to HEP made this date and is appropriate to attempt independence with HEP and symptom management at this time. Adult Risk Screening There are no spiritual/cultural practices/values/nee ds that are important to know Initial Fall Risk Screening: KAIA has not fallen in the last 6 months. KAIA has a fear of falling. She does not need assistance with sitting, standing or walking. Does not need assistance walking in her home. She does not need assistance in an unfamiliar setting. The patient is not using an assistive device. Fall Risk Screening: Patient is identified as a fall risk. Care Plan: Low Risk: Environmental for all patients and low risk patients: Offer assistance as needed or requested, keep environment free of obstacles, keep floor clean and dry, keep room lighting, wheelchair brakes on, bed/ stretcher locked and in low position if applicable, non-slip footwear if applicable, walker/cane available if needed, side rails up if applicable and pre-emptive toileting. Low: current pain. Please identify location of pain: L low back into buttock. Pain Quality: aching. The pain makes it hard for the patient to do these things: walking, sleep and house work. Living Will. Living Will: Living will on file. Healthcare POA: Health care proxy on file. Declaration of Mental Health Treatment: Declaration of mental health treatment on file. Domestic Violence Screen: Does not feel threatened or abused physically, emotionally or sexually. Do you feel UNSAFE? The patient feels safe in the home. Depression/Suicide Screening: During the past 2 weeks, the patient has not felt down, depressed or hopeless. During the past 2 weeks, the patient has not felt little interest or pleasure in doing things. Insurance Insurance reviewed Visit number: 11 Authorization not required after evaluation Insurance: Medicare Evaluating therapist: Radha Razo, PT, DPT PT dx: M54.50, R26.9 Med dx: M43.16, M53.3, M48.07, M51.37, M54.17, M47.817 The physical therapist of record is the therapist who assumes primary responsibility for patient management and as such is held accountable for the coordination, continuation and progression of the POC. This patient?s care and PT of record will be transferred from Radha Razo PT, DPT to Aleida Metzger PT effective as of 08/25/22 Onset Date: 2022 Medicare Certification Period: Beginnin2022 Endin2022 Subjective Patient reports:. Notes her injection has been helping. She played pickle ball yesterday and her back was irritated but she tolerated ok. Notes the injection was a different type of injection. Home program performing as directed: Yes. Precautions: Fall Risk: low PMHx: thyroid disorder, L wrist plate 04/29/2020,. Objective Ortho AROM back Flex: WFL with slow return to neutral in standing-->WFL Ext: 5%-->25%-->50% R- LF: 55%-->75%--> R rot: 55% pain-->90%-->100% L- LF: 40% p!-->75%-->90% L rot: 65%-->75%-->90% (more content not included)... Normal [facility] PT Progress Noteon 3 PT Progress Note Therapy Diagnosis Assessed Lumbosacral spondylosis (721.3) (M47.817) Radiculitis, lumbosacral (724.4) (M54.17) Plan Goals: Goals set and discussed today. Activity Limitation: Increase in LEFS score to 65/80 to demonstrate improved functional mobility of LLE with ambulation painfree, by week 4, goal partially met Pain: Decrease in baseline low back and L buttock pain 1/10 to demonstrate increased painfree functional mobility for ease of household management and sleeping, by week 4, goal partially met Range Of Motion/Joint Mobility: Improved gross lumbar AROM >/=85% for demonstrated increased painfree functional mobility to perform household management and community engagement, by week 4, goal partially met Strength: Improved gross B hip, knee, and core musculature strength 5/5 MMT for increased stability with prolonged standing and ambulation when completing chores at home, by week 4, goal partially met HEP, Patient will demonstrate compliance in their home exercise program in order to promote independence in self management of functional mobility., by week 2, goal met Planned interventions include: cryotherapy, dry needling, education/instructio n, home program, hot pack, manual therapy, therapeutic activities, therapeutic exercises and iastm/cupping. Frequency and duration: 1 time(s) a week, for 4 weeks, for 4 visits. Potential to achieve rehab goals is good Progress DLS for continued improved functional mobility and core strength. Continue with STW as needed. Progress with POC, as tolerated. Assessment Patient identified by name and date of . Discussed with patient positions to help decrease pain, like sitting with lumbar support. Also discussed positions to avoid like lumbar extension. Fatigues quickly with resisted DLS and seated exercises on dynadisc. Tightness along L piriformis this date with relief after STW completion. Adult Risk Screening There are no spiritual/cultural practices/values/nee ds that are important to know Initial Fall Risk Screening: KAIA has not fallen in the last 6 months. KAIA has a fear of falling. She does not need assistance with sitting, standing or walking. Does not need assistance walking in her home. She does not need assistance in an unfamiliar setting. The patient is not using an assistive device. Fall Risk Screening: Patient is identified as a fall risk. Care Plan: Low Risk: Environmental for all patients and low risk patients: Offer assistance as needed or requested, keep environment free of obstacles, keep floor clean and dry, keep room lighting, wheelchair brakes on, bed/ stretcher locked and in low position if applicable, non-slip footwear if applicable, walker/cane available if needed, side rails up if applicable and pre-emptive toileting. Low: current pain. Please identify location of pain: L low back into buttock. Pain Quality: aching. The pain makes it hard for the patient to do these things: walking, sleep and house work. Living Will. Living Will: Living will on file. Healthcare POA: Health care proxy on file. Declaration of Mental Health Treatment: Declaration of mental health treatment on file. Domestic Violence Screen: Does not feel threatened or abused physically, emotionally or sexually. Do you feel UNSAFE? The patient feels safe in the home. Depression/Suicide Screening: During the past 2 weeks, the patient has not felt down, depressed or hopeless. During the past 2 weeks, the patient has not felt little interest or pleasure in doing things. Insurance Insurance reviewed Visit number: 10 Authorization not required after evaluation Insurance: Medicare Evaluating therapist: Radha Razo, PT, DPT PT dx: M54.50, R26.9 Med dx: M43.16, M53.3, M48.07, M51.37, M54.17, M47.817 The physical therapist of record is the therapist who assumes primary responsibility for patient management and as such is held accountable for the coordination, continuation and progression of the POC. This patient?s care and PT of record will be transferred from Radha Razo PT, DPT to Aleida Metzger PT effective as of 08/25/22 Onset Date: 2022 Medicare Certification Period: Beginnin2022 Endin2022 Subjective Patient reports:. Patient is getting cortisone injection tomorrow. States that she is kind of apprehensive about the procedure. Current pain level is 4/10. Patient reports mid/upper back soreness lately as well. Precautions: Fall Risk: low PMHx: thyroid disorder, L wrist plate 04/29/2020,. Treatment Time in clinic started at 08:35 Time in clinic ended at 09:15 Total time in clinic is 40 minutes. Total timed code time is 38 minutes. Therapeutic exercise (17414): timed minutes 28, units 2 . Nustep 5' lv 2.0 Slantboard 2x1' Hooklying hip abduction green band 2 x 10 (P reps) Hooklying hip adduction with playground ball with 5 second hold 2 x 10 Bridges 2 x 10 (small range) Bridge w/ hip ad (more content not included)... Normal [facility] PT Progress Noteon 3 PT Progress Note Therapy Diagnosis Assessed Lumbosacral spondylosis (721.3) (M47.817) Radiculitis, lumbosacral (724.4) (M54.17) Plan Goals: Goals set and discussed today. Activity Limitation: Increase in LEFS score to 65/80 to demonstrate improved functional mobility of LLE with ambulation painfree, by week 4, goal partially met Pain: Decrease in baseline low back and L buttock pain 1/10 to demonstrate increased painfree functional mobility for ease of household management and sleeping, by week 4, goal partially met Range Of Motion/Joint Mobility: Improved gross lumbar AROM >/=85% for demonstrated increased painfree functional mobility to perform household management and community engagement, by week 4, goal partially met Strength: Improved gross B hip, knee, and core musculature strength 5/5 MMT for increased stability with prolonged standing and ambulation when completing chores at home, by week 4, goal partially met HEP, Patient will demonstrate compliance in their home exercise program in order to promote independence in self management of functional mobility., by week 2, goal met Planned interventions include: cryotherapy, dry needling, education/instructio n, home program, hot pack, manual therapy, therapeutic activities, therapeutic exercises and iastm/cupping. Frequency and duration: 1 time(s) a week, for 4 weeks, for 4 visits. Potential to achieve rehab goals is good Continued manual therapy each visit as needed; Progress with core stabilization and glute retraining exercises to improve endurance of core musculature for ADLS' and increased ease with stair ambulation. Progress with POC, as tolerated. Assessment Patient identified by name and date of . Patient was able to progress with seated exercises and step ups with focus on TrA/glut contractions. She presented with palpable tension with STW that responded well with reduction of Sx after treatment. Adult Risk Screening There are no spiritual/cultural practices/values/nee ds that are important to know Initial Fall Risk Screening: KAIA has not fallen in the last 6 months. KAIA has a fear of falling. She does not need assistance with sitting, standing or walking. Does not need assistance walking in her home. She does not need assistance in an unfamiliar setting. The patient is not using an assistive device. Fall Risk Screening: Patient is identified as a fall risk. Care Plan: Low Risk: Environmental for all patients and low risk patients: Offer assistance as needed or requested, keep environment free of obstacles, keep floor clean and dry, keep room lighting, wheelchair brakes on, bed/ stretcher locked and in low position if applicable, non-slip footwear if applicable, walker/cane available if needed, side rails up if applicable and pre-emptive toileting. Low: current pain. Pain Scale: On a scale of 0 to 10, the patient rates the pain at 6. Please identify location of pain: L low back into buttock. Pain Quality: aching. The pain makes it hard for the patient to do these things: walking, sleep and house work. Living Will. Living Will: Living will on file. Healthcare POA: Health care proxy on file. Declaration of Mental Health Treatment: Declaration of mental health treatment on file. Domestic Violence Screen: Does not feel threatened or abused physically, emotionally or sexually. Do you feel UNSAFE? The patient feels safe in the home. Depression/Suicide Screening: During the past 2 weeks, the patient has not felt down, depressed or hopeless. During the past 2 weeks, the patient has not felt little interest or pleasure in doing things. Insurance Insurance reviewed Visit number: 9 Authorization not required after evaluation Insurance: Medicare Evaluating therapist: Radha Razo, PT, DPT PT dx: M54.50, R26.9 Med dx: M43.16, M53.3, M48.07, M51.37, M54.17, M47.817 The physical therapist of record is the therapist who assumes primary responsibility for patient management and as such is held accountable for the coordination, continuation and progression of the POC. This patient?s care and PT of record will be transferred from Radha Razo PT, DPT to Aleida Metzger PT effective as of 08/25/22 Onset Date: 2022 Medicare Certification Period: Beginnin2022 Endin2022 Subjective Patient reports:. Patient reported the day prior to treatment she experienced increased Sx she reported she feels that it might be from going up and down the stairs more frequently She reported 2/10 pain after treatment. Precautions: Fall Risk: low PMHx: thyroid disorder, L wrist plate 04/29/2020,. Treatment Time in clinic started at 08:36 Time in clinic ended at 09:16 Total time in clinic is 40 minutes. Total timed code time is 38 minutes. Therapeutic exercise (23406): timed minutes 28, units 2 . Nustep 5' lv 2.0 Slantboard 2x1' Hooklying hip abduction green band 2 x 10 (P reps) Hooklying hip adduction with playground ball (more content not included)... Normal [facility] PT Progress Noteon 3 PT Progress Note No report was sent [facility] PT Progress Noteon 3 PT Progress Note Therapy Diagnosis Assessed Lumbosacral spondylosis (721.3) (M47.817) Radiculitis, lumbosacral (724.4) (M54.17) Plan Goals: Goals set and discussed today. Activity Limitation: Increase in LEFS score to 65/80 to demonstrate improved functional mobility of LLE with ambulation painfree, by week 4, goal partially met Pain: Decrease in baseline low back and L buttock pain 1/10 to demonstrate increased painfree functional mobility for ease of household management and sleeping, by week 4, goal partially met Range Of Motion/Joint Mobility: Improved gross lumbar AROM >/=85% for demonstrated increased painfree functional mobility to perform household management and community engagement, by week 4, goal partially met Strength: Improved gross B hip, knee, and core musculature strength 5/5 MMT for increased stability with prolonged standing and ambulation when completing chores at home, by week 4, goal partially met HEP, Patient will demonstrate compliance in their home exercise program in order to promote independence in self management of functional mobility., by week 2, goal met Planned interventions include: cryotherapy, dry needling, education/instructio n, home program, hot pack, manual therapy, therapeutic activities, therapeutic exercises and iastm/cupping. Frequency and duration: 1 time(s) a week, for 4 weeks, for 4 visits. Potential to achieve rehab goals is good Continued manual therapy each visit as needed; Progress with core stabilization and glute retraining exercises to improve endurance of core musculature for ADLs and IADL's. Progress with POC, as tolerated. Assessment Pt reassessed this date by supervising PT with improvements noted in Lumbar AROM as well as MMT compared to eval. She reports subjective improvement, however is still having some functional limitations, specifically with gardening and dressing at times. Pt presented with myofascial restrictions throughout Left sided lumbosacral musculature, with STM performed by Jane Aaron PTA, while this PT was performing treatment on other patient. Pt with improved mobility afterwards. Edu pt on decreasing height of bridge exercise due to reporting pain. Pt is making goal oriented progress but is not quite ready for D/C from therapy. Adult Risk Screening There are no spiritual/cultural practices/values/nee ds that are important to know Initial Fall Risk Screening: KAIA has not fallen in the last 6 months. KAIA has a fear of falling. She does not need assistance with sitting, standing or walking. Does not need assistance walking in her home. She does not need assistance in an unfamiliar setting. The patient is not using an assistive device. Fall Risk Screening: Patient is identified as a fall risk. Care Plan: Low Risk: Environmental for all patients and low risk patients: Offer assistance as needed or requested, keep environment free of obstacles, keep floor clean and dry, keep room lighting, wheelchair brakes on, bed/ stretcher locked and in low position if applicable, non-slip footwear if applicable, walker/cane available if needed, side rails up if applicable and pre-emptive toileting. Low: current pain. Please identify location of pain: L low back into buttock. Pain Quality: aching. The pain makes it hard for the patient to do these things: walking, sleep and house work. Living Will. Living Will: Living will on file. Healthcare POA: Health care proxy on file. Declaration of Mental Health Treatment: Declaration of mental health treatment on file. Domestic Violence Screen: Does not feel threatened or abused physically, emotionally or sexually. Do you feel UNSAFE? The patient feels safe in the home. Depression/Suicide Screening: During the past 2 weeks, the patient has not felt down, depressed or hopeless. During the past 2 weeks, the patient has not felt little interest or pleasure in doing things. Insurance Insurance reviewed Visit number: 8 Authorization not required after evaluation Insurance: Medicare Evaluating therapist: Radha Razo, PT, DPT PT dx: M54.50, R26.9 Med dx: M43.16, M53.3, M48.07, M51.37, M54.17, M47.817 The physical therapist of record is the therapist who assumes primary responsibility for patient management and as such is held accountable for the coordination, continuation and progression of the POC. This patient?s care and PT of record will be transferred from Radha Razo PT, DPT to Aleida Metzger PT effective as of 08/25/22 Onset Date: 2022 Medicare Certification Period: Beginnin2022 Endin2022 Subjective Patient reports:. Pt notes she had to do a lot of landscaping yesterday and had to get on/off the ground often. Notes feeling pretty good this morning considering what she did yesterday. Notes sometimes when she leaves therapy she will have some increase in pain in central lumbar spine and in buttocks. Home program performing as directed: Partially. Precautions: Fal (more content not included)... Normal [facility] Therapy Re-eval Noteon 09-22 Therapy Re-eval Note Therapy Diagnosis Assessed 1. Lumbosacral spondylosis (721.3) (M47.817) 2. Radiculitis, lumbosacral (724.4) (M54.17) Plan Goals: Goals set and discussed today. Activity Limitation: Increase in LEFS score to 65/80 to demonstrate improved functional mobility of LLE with ambulation painfree, by week 4, goal partially met Pain: Decrease in baseline low back and L buttock pain 1/10 to demonstrate increased painfree functional mobility for ease of household management and sleeping, by week 4, goal partially met Range Of Motion/Joint Mobility: Improved gross lumbar AROM >/=85% for demonstrated increased painfree functional mobility to perform household management and community engagement, by week 4, goal partially met Strength: Improved gross B hip, knee, and core musculature strength 5/5 MMT for increased stability with prolonged standing and ambulation when completing chores at home, by week 4, goal partially met HEP, Patient will demonstrate compliance in their home exercise program in order to promote independence in self management of functional mobility., by week 2, goal met Planned interventions include: cryotherapy, dry needling, education/instructio n, home program, hot pack, manual therapy, therapeutic activities, therapeutic exercises and iastm/cupping. Frequency and duration: 1 time(s) a week, for 4 weeks, for 4 visits. Potential to achieve rehab goals is good Continued manual therapy each visit as needed; Progress with core stabilization and glute retraining exercises to improve endurance of core musculature for ADLs and IADL's. Progress with POC, as tolerated. Assessment Pt reassessed this date by supervising PT with improvements noted in Lumbar AROM as well as MMT compared to eval. She reports subjective improvement, however is still having some functional limitations, specifically with gardening and dressing at times. Pt presented with myofascial restrictions throughout Left sided lumbosacral musculature, with STM performed by Jane Aaron PTA, while this PT was performing treatment on other patient. Pt with improved mobility afterwards. Edu pt on decreasing height of bridge exercise due to reporting pain. Pt is making goal oriented progress but is not quite ready for D/C from therapy. Adult Risk Screening There are no spiritual/cultural practices/values/nee ds that are important to know Initial Fall Risk Screening: KAIA has not fallen in the last 6 months. KAIA has a fear of falling. She does not need assistance with sitting, standing or walking. Does not need assistance walking in her home. She does not need assistance in an unfamiliar setting. The patient is not using an assistive device. Fall Risk Screening: Patient is identified as a fall risk. Care Plan: Low Risk: Environmental for all patients and low risk patients: Offer assistance as needed or requested, keep environment free of obstacles, keep floor clean and dry, keep room lighting, wheelchair brakes on, bed/ stretcher locked and in low position if applicable, non-slip footwear if applicable, walker/cane available if needed, side rails up if applicable and pre-emptive toileting. Low: current pain. Please identify location of pain: L low back into buttock. Pain Quality: aching. The pain makes it hard for the patient to do these things: walking, sleep and house work. Living Will. Living Will: Living will on file. Healthcare POA: Health care proxy on file. Declaration of Mental Health Treatment: Declaration of mental health treatment on file. Domestic Violence Screen: Does not feel threatened or abused physically, emotionally or sexually. Do you feel UNSAFE? The patient feels safe in the home. Depression/Suicide Screening: During the past 2 weeks, the patient has not felt down, depressed or hopeless. During the past 2 weeks, the patient has not felt little interest or pleasure in doing things. Insurance Insurance reviewed Visit number: 8 Authorization not required after evaluation Insurance: Medicare Evaluating therapist: Radha Razo, PT, DPT PT dx: M54.50, R26.9 Med dx: M43.16, M53.3, M48.07, M51.37, M54.17, M47.817 The physical therapist of record is the therapist who assumes primary responsibility for patient management and as such is held accountable for the coordination, continuation and progression of the POC. This patient?s care and PT of record will be transferred from Radha Razo PT, DPT to Aleida Metzger PT effective as of 08/25/22 Onset Date: 2022 Medicare Certification Period: Beginnin2022 Endin2022 Subjective Patient reports:. Pt notes she had to do a lot of landscaping yesterday and had to get on/off the ground often. Notes feeling pretty good this morning considering what she did yesterday. Notes sometimes when she leaves therapy she will have some increase in pain in central lumbar spine and in buttocks. Home program performing as directed: Partially. Precaution (more content not included)... Normal [facility] PT Progress Noteon 3 PT Progress Note Therapy Diagnosis Assessed Low back pain (724.2) (M54.50) Gait abnormality (781.2) (R26.9) Spondylolisthesis of lumbar region (738.4) (M43.16) Disorder of sacrum (724.6) (M53.3) Lumbosacral stenosis (724.02) (M48.07) Degeneration of lumbosacral intervertebral disc (722.52) (M51.37) Radiculitis, lumbosacral (724.4) (M54.17) Lumbosacral spondylosis (721.3) (M47.817) Plan Goals: Goals set and discussed today. Activity Limitation: Increase in LEFS score to 65/80 to demonstrate improved functional mobility of LLE with ambulation painfree, by week 4 Pain: Decrease in baseline low back and L buttock pain 1/10 to demonstrate increased painfree functional mobility for ease of household management and sleeping, by week 4 Range Of Motion/Joint Mobility: Improved gross lumbar AROM >/=85% for demonstrated increased painfree functional mobility to perform household management and community engagement, by week 4 Strength: Improved gross B hip, knee, and core musculature strength 5/5 MMT for increased stability with prolonged standing and ambulation when completing chores at home, by week 4 HEP, Patient will demonstrate compliance in their home exercise program in order to promote independence in self management of functional mobility., by week 2 Planned interventions include: cryotherapy, dry needling, education/instructio n, home program, hot pack, manual therapy, therapeutic activities, therapeutic exercises and iastm/cupping. Frequency and duration: 2 time(s) a week, for 4 weeks, for 8 visits. Potential to achieve rehab goals is good Progress DLS for continued improved functional mobility and core strength. Progress with POC, as tolerated. Assessment Patient identified by name and Mild exacerbation of pain with paloff DLS. Improved eccentric control with bridges. Decreased guarding with bed mobility and transfers. Adult Risk Screening There are no spiritual/cultural practices/values/nee ds that are important to know Initial Fall Risk Screening: KAIA has not fallen in the last 6 months. KAIA has a fear of falling. She does not need assistance with sitting, standing or walking. Does not need assistance walking in her home. She does not need assistance in an unfamiliar setting. The patient is not using an assistive device. Fall Risk Screening: Patient is identified as a fall risk. Care Plan: Low Risk: Environmental for all patients and low risk patients: Offer assistance as needed or requested, keep environment free of obstacles, keep floor clean and dry, keep room lighting, wheelchair brakes on, bed/ stretcher locked and in low position if applicable, non-slip footwear if applicable, walker/cane available if needed, side rails up if applicable and pre-emptive toileting. Low: current pain. Please identify location of pain: L low back into buttock. Pain Quality: aching. The pain makes it hard for the patient to do these things: walking, sleep and house work. Living Will. Living Will: Living will on file. Healthcare POA: Health care proxy on file. Declaration of Mental Health Treatment: Declaration of mental health treatment on file. Domestic Violence Screen: Does not feel threatened or abused physically, emotionally or sexually. Do you feel UNSAFE? The patient feels safe in the home. Depression/Suicide Screening: During the past 2 weeks, the patient has not felt down, depressed or hopeless. During the past 2 weeks, the patient has not felt little interest or pleasure in doing things. Insurance Insurance reviewed Visit number: 7 Authorization not required after evaluation Insurance: Medicare Evaluating therapist: Radha Razo, PT, DPT PT dx: M54.50, R26.9 Med dx: M43.16, M53.3, M48.07, M51.37, M54.17, M47.817 The physical therapist of record is the therapist who assumes primary responsibility for patient management and as such is held accountable for the coordination, continuation and progression of the POC. This patient?s care and PT of record will be transferred from Radha Razo PT, DPT to Aleida Metzger PT effective as of 08/25/22 Onset Date: 2022 Medicare Certification Period: Beginnin2022 Endin2022 Subjective Patient reports:. Patient states that she is going ok so far today States that she has been running errands today and has been riding in the car a lot. States that she is not sleeping ok d/t being able to feel symptoms at night. States those symptoms are not as severe but is still bothersome. Precautions: Fall Risk: low PMHx: thyroid disorder, L wrist plate 04/29/2020,. Treatment Time in clinic started at 116 pm Time in clinic ended at 2:00 pm Total time in clinic is 44 minutes. Total timed code time is 43 minutes. Therapeutic exercise (90375): timed minutes 43, units 3 . Nustep 5' lv 2.0 Slantboard 2x1' 2 x 10 LTR each direction 5 hold (P reps) Supine piriformis stretch figure 4 3x20 second each LE (X) (more content not included)... Normal [facility] PT Progress Noteon 3 PT Progress Note Therapy Diagnosis Assessed Low back pain (724.2) (M54.50) Gait abnormality (781.2) (R26.9) Spondylolisthesis of lumbar region (738.4) (M43.16) Disorder of sacrum (724.6) (M53.3) Lumbosacral stenosis (724.02) (M48.07) Degeneration of lumbosacral intervertebral disc (722.52) (M51.37) Radiculitis, lumbosacral (724.4) (M54.17) Lumbosacral spondylosis (721.3) (M47.817) Plan Goals: Goals set and discussed today. Activity Limitation: Increase in LEFS score to 65/80 to demonstrate improved functional mobility of LLE with ambulation painfree, by week 4 Pain: Decrease in baseline low back and L buttock pain 1/10 to demonstrate increased painfree functional mobility for ease of household management and sleeping, by week 4 Range Of Motion/Joint Mobility: Improved gross lumbar AROM >/=85% for demonstrated increased painfree functional mobility to perform household management and community engagement, by week 4 Strength: Improved gross B hip, knee, and core musculature strength 5/5 MMT for increased stability with prolonged standing and ambulation when completing chores at home, by week 4 HEP, Patient will demonstrate compliance in their home exercise program in order to promote independence in self management of functional mobility., by week 2 Planned interventions include: cryotherapy, dry needling, education/instructio n, home program, hot pack, manual therapy, therapeutic activities, therapeutic exercises and iastm/cupping. Frequency and duration: 2 time(s) a week, for 4 weeks, for 8 visits. Potential to achieve rehab goals is good will continue to work on progressing toward plan of care as tolerated to be able to improve strength to be able to perform yard work with little to no difficulty. Assessment Patient identified by name and Patient 4 minutes late, and asked to leave early d/t dentist appt. Patient appropriately challenged with palof press this date and able to tolerate proprioception with mild difficulty. Does demo slight difficulty with isometric palof walkout but able to complete reps. Adult Risk Screening There are no spiritual/cultural practices/values/nee ds that are important to know Initial Fall Risk Screening: KAIA has not fallen in the last 6 months. KAIA has a fear of falling. She does not need assistance with sitting, standing or walking. Does not need assistance walking in her home. She does not need assistance in an unfamiliar setting. The patient is not using an assistive device. Fall Risk Screening: Patient is identified as a fall risk. Care Plan: Low Risk: Environmental for all patients and low risk patients: Offer assistance as needed or requested, keep environment free of obstacles, keep floor clean and dry, keep room lighting, wheelchair brakes on, bed/ stretcher locked and in low position if applicable, non-slip footwear if applicable, walker/cane available if needed, side rails up if applicable and pre-emptive toileting. Low: current pain. Please identify location of pain: L low back into buttock. Pain Quality: aching. The pain makes it hard for the patient to do these things: walking, sleep and house work. Living Will. Living Will: Living will on file. Healthcare POA: Health care proxy on file. Declaration of Mental Health Treatment: Declaration of mental health treatment on file. Domestic Violence Screen: Does not feel threatened or abused physically, emotionally or sexually. Do you feel UNSAFE? The patient feels safe in the home. Depression/Suicide Screening: During the past 2 weeks, the patient has not felt down, depressed or hopeless. During the past 2 weeks, the patient has not felt little interest or pleasure in doing things. Insurance Insurance reviewed Visit number: 6 Authorization not required after evaluation Insurance: Medicare Evaluating therapist: Radha Razo, PT, DPT PT dx: M54.50, R26.9 Med dx: M43.16, M53.3, M48.07, M51.37, M54.17, M47.817 The physical therapist of record is the therapist who assumes primary responsibility for patient management and as such is held accountable for the coordination, continuation and progression of the POC. This patient?s care and PT of record will be transferred from Radha Razo PT, DPT to Aleida Metzger PT effective as of 08/25/22 Onset Date: 2022 Medicare Certification Period: Beginnin2022 Endin2022 Subjective Patient reports:. Patient states that she's feeling a little sore in her back. States that she's been running around all morning. Precautions: Fall Risk: low PMHx: thyroid disorder, L wrist plate 04/29/2020,. Treatment Time in clinic started at 119 pm Time in clinic ended at 155 pm Total time in clinic is 36 minutes. Total timed code time is 34 minutes. Therapeutic exercise (40508): timed minutes 34, units 3 . Nustep 5' lv 2.0 Slantboard 2x1' (N) x10 LTR each direction 5 hold Supine piriformis stretch figure 4 3x20 second each LE (X) x (more content not included)... Normal [facility] PT Progress Noteon 3 PT Progress Note Therapy Diagnosis Assessed Low back pain (724.2) (M54.50) Gait abnormality (781.2) (R26.9) Spondylolisthesis of lumbar region (738.4) (M43.16) Disorder of sacrum (724.6) (M53.3) Lumbosacral stenosis (724.02) (M48.07) Degeneration of lumbosacral intervertebral disc (722.52) (M51.37) Radiculitis, lumbosacral (724.4) (M54.17) Lumbosacral spondylosis (721.3) (M47.817) Plan Goals: Goals set and discussed today. Activity Limitation: Increase in LEFS score to 65/80 to demonstrate improved functional mobility of LLE with ambulation painfree, by week 4 Pain: Decrease in baseline low back and L buttock pain 1/10 to demonstrate increased painfree functional mobility for ease of household management and sleeping, by week 4 Range Of Motion/Joint Mobility: Improved gross lumbar AROM >/=85% for demonstrated increased painfree functional mobility to perform household management and community engagement, by week 4 Strength: Improved gross B hip, knee, and core musculature strength 5/5 MMT for increased stability with prolonged standing and ambulation when completing chores at home, by week 4 HEP, Patient will demonstrate compliance in their home exercise program in order to promote independence in self management of functional mobility., by week 2 Planned interventions include: cryotherapy, dry needling, education/instructio n, home program, hot pack, manual therapy, therapeutic activities, therapeutic exercises and iastm/cupping. Frequency and duration: 2 time(s) a week, for 4 weeks, for 8 visits. Potential to achieve rehab goals is good Plan to continue progressing core stability and strength towards POC for ease in ADLs and recreational activities such as pickleball and yard work. Progress with POC, as tolerated. Assessment Patient identified by name and . Continued with previous exercises this visit d/t lack [...] new exercises this visit d/t lack of time. Treatment provided by KAYKAY Taylor under the direct supervision of Zoya Schmitz PTA. Adult Risk Screening There are no spiritual/cultural practices/values/nee ds that are important to know Initial Fall Risk Screening: KAIA has not fallen in the last 6 months. KAIA has a fear of falling. She does not need assistance with sitting, standing or walking. Does not need assistance walking in her home. She does not need assistance in an unfamiliar setting. The patient is not using an assistive device. Fall Risk Screening: Patient is identified as a fall risk. Care Plan: Low Risk: Environmental for all patients and low risk patients: Offer assistance as needed or requested, keep environment free of obstacles, keep floor clean and dry, keep room lighting, wheelchair brakes on, bed/ stretcher locked and in low position if applicable, non-slip footwear if applicable, walker/cane available if needed, side rails up if applicable and pre-emptive toileting. Low: current pain. Please identify location of pain: L low back into buttock. Pain Quality: aching. The pain makes it hard for the patient to do these things: walking, sleep and house work. Living Will. Living Will: Living will on file. Healthcare POA: Health care proxy on file. Declaration of Mental Health Treatment: Declaration of mental health treatment on file. Domestic Violence Screen: Does not feel threatened or abused physically, emotionally or sexually. Do you feel UNSAFE? The patient feels safe in the home. Depression/Suicide Screening: During the past 2 weeks, the patient has not felt down, depressed or hopeless. During the past 2 weeks, the patient has not felt little interest or pleasure in doing things. Insurance Insurance reviewed Visit number: 5 Authorization not required after evaluation Insurance: Medicare Evaluating therapist: Radha Razo PT, DPT PT dx: M54.50, R26.9 Med dx: M43.16, M53.3, M48.07, M51.37, M54.17, M47.817 The physical therapist of record is the therapist who assumes primary responsibility for patient management and as such is held accountable for the coordination, continuation and progression of the POC. This patient?s care and PT of record will be transferred from Radha Razo PT, DPT to Aleida Metzger PT effective as of 08/25/22 Onset Date: 2022 Medicare Certification Period: Beginnin2022 Endin2022 Subjective Patient reports:. Patient states her pain is a 3/10 in her LB. Patient showed up 20 minutes late this visit, was confused about her start time. She decided to do a shortened treatment this visit. Precautions: Fall Risk: low PMHx: thyroid disorder, L wrist plate 04/29/2020,. Treatment Time in clinic started at 1:35 pm Time in clinic ended a (more content not included)... Normal [facility] PT Progress Noteon 3 PT Progress Note Therapy Diagnosis Assessed Low back pain (724.2) (M54.50) Gait abnormality (781.2) (R26.9) Spondylolisthesis of lumbar region (738.4) (M43.16) Disorder of sacrum (724.6) (M53.3) Lumbosacral stenosis (724.02) (M48.07) Degeneration of lumbosacral intervertebral disc (722.52) (M51.37) Radiculitis, lumbosacral (724.4) (M54.17) Lumbosacral spondylosis (721.3) (M47.817) Plan Goals: Goals set and discussed today. Activity Limitation: Increase in LEFS score to 65/80 to demonstrate improved functional mobility of LLE with ambulation painfree, by week 4 Pain: Decrease in baseline low back and L buttock pain 1/10 to demonstrate increased painfree functional mobility for ease of household management and sleeping, by week 4 Range Of Motion/Joint Mobility: Improved gross lumbar AROM >/=85% for demonstrated increased painfree functional mobility to perform household management and community engagement, by week 4 Strength: Improved gross B hip, knee, and core musculature strength 5/5 MMT for increased stability with prolonged standing and ambulation when completing chores at home, by week 4 HEP, Patient will demonstrate compliance in their home exercise program in order to promote independence in self management of functional mobility., by week 2 Planned interventions include: cryotherapy, dry needling, education/instructio n, home program, hot pack, manual therapy, therapeutic activities, therapeutic exercises and iastm/cupping. Frequency and duration: 2 time(s) a week, for 4 weeks, for 8 visits. Potential to achieve rehab goals is good Plan to increase core strengthening and stability with the addition of the exercises listed in the treatment section. If time allows next visit, add STW. Progress with POC, as tolerated. Assessment Patient identified by name and . Patient arrived to therapy 8 minutes late this session. Performed bridge progressions this visit for increasing core stability and strength. Patient moderately challenged d/t weakness in her core and tendency to drop her hips during bridges w/ marches, verbal cues used for correction. No increase in pain with exercises. The following exercises would benefit this patient well: dynadisc exercises, pallof press, pallof walkouts. Treatment provided by KAYKAY Taylor under the direct supervision of Zoya Schmitz PTA. Adult Risk Screening There are no spiritual/cultural practices/values/nee ds that are important to know Initial Fall Risk Screening: KAIA has not fallen in the last 6 months. KAIA has a fear of falling. She does not need assistance with sitting, standing or walking. Does not need assistance walking in her home. She does not need assistance in an unfamiliar setting. The patient is not using an assistive device. Fall Risk Screening: Patient is identified as a fall risk. Care Plan: Low Risk: Environmental for all patients and low risk patients: Offer assistance as needed or requested, keep environment free of obstacles, keep floor clean and dry, keep room lighting, wheelchair brakes on, bed/ stretcher locked and in low position if applicable, non-slip footwear if applicable, walker/cane available if needed, side rails up if applicable and pre-emptive toileting. Low: current pain. Please identify location of pain: L low back into buttock. Pain Quality: aching. The pain makes it hard for the patient to do these things: walking, sleep and house work. Living Will. Living Will: Living will on file. Healthcare POA: Health care proxy on file. Declaration of Mental Health Treatment: Declaration of mental health treatment on file. Domestic Violence Screen: Does not feel threatened or abused physically, emotionally or sexually. Do you feel UNSAFE? The patient feels safe in the home. Depression/Suicide Screening: During the past 2 weeks, the patient has not felt down, depressed or hopeless. During the past 2 weeks, the patient has not felt little interest or pleasure in doing things. Insurance Insurance reviewed Visit number: 4 Authorization not required after evaluation Insurance: Medicare Evaluating therapist: Radha Razo, PT, DPT PT dx: M54.50, R26.9 Med dx: M43.16, M53.3, M48.07, M51.37, M54.17, M47.817 The physical therapist of record is the therapist who assumes primary responsibility for patient management and as such is held accountable for the coordination, continuation and progression of the POC. This patient?s care and PT of record will be transferred from Radha Razo PT, DPT to Aleida Metzger PT effective as of 08/25/22 Onset Date: 2022 Medicare Certification Period: Beginnin2022 Endin2022 Subjective Patient reports:. Patient states her pain is a 3/10 in her LB today. Patient reports playing pickleball recently and it has increased soreness in her shoulder so she is going to hold off playing it for a while. Precautions: Fall Risk: low PMHx: thyroid disorder, L wrist plate 04/29 (more content not included)... Normal [facility] PT Progress Noteon 3 PT Progress Note Therapy Diagnosis Assessed Low back pain (724.2) (M54.50) Gait abnormality (781.2) (R26.9) Spondylolisthesis of lumbar region (738.4) (M43.16) Disorder of sacrum (724.6) (M53.3) Lumbosacral stenosis (724.02) (M48.07) Degeneration of lumbosacral intervertebral disc (722.52) (M51.37) Radiculitis, lumbosacral (724.4) (M54.17) Lumbosacral spondylosis (721.3) (M47.817) Plan Goals: Goals set and discussed today. Activity Limitation: Increase in LEFS score to 65/80 to demonstrate improved functional mobility of LLE with ambulation painfree, by week 4 Pain: Decrease in baseline low back and L buttock pain 1/10 to demonstrate increased painfree functional mobility for ease of household management and sleeping, by week 4 Range Of Motion/Joint Mobility: Improved gross lumbar AROM >/=85% for demonstrated increased painfree functional mobility to perform household management and community engagement, by week 4 Strength: Improved gross B hip, knee, and core musculature strength 5/5 MMT for increased stability with prolonged standing and ambulation when completing chores at home, by week 4 HEP, Patient will demonstrate compliance in their home exercise program in order to promote independence in self management of functional mobility., by week 2 Planned interventions include: cryotherapy, dry needling, education/instructio n, home program, hot pack, manual therapy, therapeutic activities, therapeutic exercises and iastm/cupping. Frequency and duration: 2 time(s) a week, for 4 weeks, for 8 visits. Potential to achieve rehab goals is good Plan to add STW next visit with the addition of increased core strengthening exercises such as progressing bridges and adding dynadisc to challenge stability. Progress with POC, as tolerated. Assessment Patient identified by name and . D/t patient showing up late, unable to perform STW w/ time as well as limited on progression, however, did add bridges for increasing core strength and stability. No increase in pain with exercises. Patient reports compliance with HEP. Treatment provided by KAYKAY Taylor under the direct supervision of Zoya Schmitz PTA. Adult Risk Screening There are no spiritual/cultural practices/values/nee ds that are important to know Initial Fall Risk Screening: KAIA has not fallen in the last 6 months. KAIA has a fear of falling. She does not need assistance with sitting, standing or walking. Does not need assistance walking in her home. She does not need assistance in an unfamiliar setting. The patient is not using an assistive device. Fall Risk Screening: Patient is identified as a fall risk. Care Plan: Low Risk: Environmental for all patients and low risk patients: Offer assistance as needed or requested, keep environment free of obstacles, keep floor clean and dry, keep room lighting, wheelchair brakes on, bed/ stretcher locked and in low position if applicable, non-slip footwear if applicable, walker/cane available if needed, side rails up if applicable and pre-emptive toileting. Low: current pain. Please identify location of pain: L low back into buttock. Pain Quality: aching. The pain makes it hard for the patient to do these things: walking, sleep and house work. Living Will. Living Will: Living will on file. Healthcare POA: Health care proxy on file. Declaration of Mental Health Treatment: Declaration of mental health treatment on file. Domestic Violence Screen: Does not feel threatened or abused physically, emotionally or sexually. Do you feel UNSAFE? The patient feels safe in the home. Depression/Suicide Screening: During the past 2 weeks, the patient has not felt down, depressed or hopeless. During the past 2 weeks, the patient has not felt little interest or pleasure in doing things. Insurance Insurance reviewed Visit number: 3 Authorization not required after evaluation Insurance: Medicare Evaluating therapist: Radha Razo, PT, DPT PT dx: M54.50, R26.9 Med dx: M43.16, M53.3, M48.07, M51.37, M54.17, M47.817 The physical therapist of record is the therapist who assumes primary responsibility for patient management and as such is held accountable for the coordination, continuation and progression of the POC. This patient?s care and PT of record will be transferred from Radha Razo PT, DPT to Aleida Metzger PT effective as of 08/25/22 Onset Date: 2022 Medicare Certification Period: Beginnin2022 Endin2022 Subjective Patient reports:. Patient states her pain was a 4/10 in her low back. No complaints otherwise. Patient showed up to therapy 10 minutes late this visit. Precautions: Fall Risk: low PMHx: thyroid disorder, L wrist plate 04/29/2020,. Treatment Time in clinic started at 3:40 pm Time in clinic ended at 4:15 pm Total time in clinic is 35 minutes. Total timed code time is 33 minutes. Therapeutic exercise (18627): timed minutes 33, units 2 . Nustep 5' lv 1.5 (P (more content not included)... Normal [facility] PT Progress Noteon 3 PT Progress Note Therapy Diagnosis Assessed Low back pain (724.2) (M54.50) Gait abnormality (781.2) (R26.9) Spondylolisthesis of lumbar region (738.4) (M43.16) Disorder of sacrum (724.6) (M53.3) Lumbosacral stenosis (724.02) (M48.07) Degeneration of lumbosacral intervertebral disc (722.52) (M51.37) Radiculitis, lumbosacral (724.4) (M54.17) Lumbosacral spondylosis (721.3) (M47.817) Plan Goals: Goals set and discussed today. Activity Limitation: Increase in LEFS score to 65/80 to demonstrate improved functional mobility of LLE with ambulation painfree, by week 4 Pain: Decrease in baseline low back and L buttock pain 1/10 to demonstrate increased painfree functional mobility for ease of household management and sleeping, by week 4 Range Of Motion/Joint Mobility: Improved gross lumbar AROM >/=85% for demonstrated increased painfree functional mobility to perform household management and community engagement, by week 4 Strength: Improved gross B hip, knee, and core musculature strength 5/5 MMT for increased stability with prolonged standing and ambulation when completing chores at home, by week 4 HEP, Patient will demonstrate compliance in their home exercise program in order to promote independence in self management of functional mobility., by week 2 Planned interventions include: cryotherapy, dry needling, education/instructio n, home program, hot pack, manual therapy, therapeutic activities, therapeutic exercises and iastm/cupping. Frequency and duration: 2 time(s) a week, for 4 weeks, for 8 visits. Potential to achieve rehab goals is good Plan to continue progressing core strength and stability w/o increasing symptoms. Plan to add STW to R hip flexors next visit. Progress with POC, as tolerated. Assessment Patient identified by name and . Patient moderately challenged this visit d/t pain, tightness and symptoms increasing during standing. Did add stretches to relieve tightness in the LB and sacral region. Plan next visit to progress core strength and stability. Treatment provided by KAYKAY Taylor under the direct supervision of Zoya Schmitz PTA. Adult Risk Screening There are no spiritual/cultural practices/values/nee ds that are important to know Initial Fall Risk Screening: KAIA has not fallen in the last 6 months. KAIA has a fear of falling. She does not need assistance with sitting, standing or walking. Does not need assistance walking in her home. She does not need assistance in an unfamiliar setting. The patient is not using an assistive device. Fall Risk Screening: Patient is identified as a fall risk. Care Plan: Low Risk: Environmental for all patients and low risk patients: Offer assistance as needed or requested, keep environment free of obstacles, keep floor clean and dry, keep room lighting, wheelchair brakes on, bed/ stretcher locked and in low position if applicable, non-slip footwear if applicable, walker/cane available if needed, side rails up if applicable and pre-emptive toileting. Low: current pain. Please identify location of pain: L low back into buttock. Pain Quality: aching. The pain makes it hard for the patient to do these things: walking, sleep and house work. Living Will. Living Will: Living will on file. Healthcare POA: Health care proxy on file. Declaration of Mental Health Treatment: Declaration of mental health treatment on file. Domestic Violence Screen: Does not feel threatened or abused physically, emotionally or sexually. Do you feel UNSAFE? The patient feels safe in the home. Depression/Suicide Screening: During the past 2 weeks, the patient has not felt down, depressed or hopeless. During the past 2 weeks, the patient has not felt little interest or pleasure in doing things. Insurance Insurance reviewed Visit number: 2 Authorization not required after evaluation Insurance: Medicare Evaluating therapist: Radha Razo, PT, DPT PT dx: M54.50, R26.9 Med dx: M43.16, M53.3, M48.07, M51.37, M54.17, M47.817 The physical therapist of record is the therapist who assumes primary responsibility for patient management and as such is held accountable for the coordination, continuation and progression of the POC. This patient?s care and PT of record will be transferred from Radha Razo PT, DPT to Aleida Metzger PT effective as of 08/25/22 Onset Date: 2022 Medicare Certification Period: Beginnin2022 Endin2022 Subjective Patient reports:. Patient states her pain was a 5-6/10 before treatment and a 4-5/10 after treatment. Precautions: Fall Risk: low PMHx: thyroid disorder, L wrist plate 04/29/2020,. Treatment Time in clinic started at 2:00 pm Time in clinic ended at 2:45 pm Total time in clinic is 45 minutes. Total timed code time is 38 minutes. Therapeutic exercise (93198): timed minutes 38, units 3 . Nustep 5' (N) x10 LTR each direction Supine piriformis stretch figure 4 3x20 second each LE x10 supine T (more content not included)... 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 Activity Limitation: Increase in LEFS score to 65/80 to demonstrate improved functional mobility of LLE with ambulation painfree, by week 4 Pain: Decrease in baseline low back and L buttock pain 1/10 to demonstrate increased painfree functional mobility for ease of household management and sleeping, by week 4 Range Of Motion/Joint Mobility: Improved gross lumbar AROM >/=85% for demonstrated increased painfree functional mobility to perform household management and community engagement, by week 4 Strength: Improved gross B hip, knee, and core musculature strength 5/5 MMT for increased stability with prolonged standing and ambulation when completing chores at home, by week 4 HEP, Patient will demonstrate compliance in their home exercise program in order to promote independence in self management of functional mobility., by week 2 Planned interventions include: cryotherapy, dry needling, education/instructio n, home program, hot pack, manual therapy, therapeutic activities, therapeutic exercises and iastm/cupping. Frequency and duration: 2 time(s) a week, for 4 weeks, for 8 visits. Potential to achieve rehab goals is good Plan of care was developed with input and agreement by the patient. Assessment Kaia Haley, a 67 year old female, arrives to [...] tolerance. Verbal cues to perform within painfree ROM. Patient educated in placement of exercises bed vs floor based on comfort level d/t difficulty of performing exercises on floor. HEP handout provided. 3/10 pain at end of session. The pt verbalized understanding and agreement to goals and POC. Thank you for this referral and please call [phone] with any questions or concerns. Clinical Presentation: Stable and/or uncomplicated characteristics. Level of Complexity: low Problem List: activity limitations, ADLs/IADLs/self care skills, decreased knowledge of HEP, flexibility, gait/locomotion, pain, participation restrictions, range of motion/joint mobility and strength. Reason For Visit Initial Evaluation . Sacrum disorder, lumbosacral IV disc, lumbosacral radiculitis/spondylo sis, spondylolisthesis lumbar region, arthropathy of lumbar facet. Referred by: Kait Oneil CNP Adult Risk Screening There are no spiritual/cultural practices/values/nee ds that are important to know Initial Fall Risk Screening: KAIA has not fallen in the last 6 months. KAIA has a fear of falling. She does not need assistance with sitting, standing or walking. Does not need assistance walking in her home. She does not need assistance in an unfamiliar setting. The patient is not using an assistive device. Fall Risk Screening: Patient is identified as a fall risk. Care Plan: Low Risk: Environmental for all patients and low risk patients: Offer assistance as needed or requested, keep environment free of obstacles, keep floor clean and dry, keep room lighting, wheelchair brakes on, bed/ stretcher locked and in low position if applicable, non-slip footwear if applicable, walker/cane available if needed, side rails up if applicable and pre-emptive toileting. Low: current pain. Pain Scale: On a scale of 0 to 10, the patient rates the pain at 3. Please identify location of pain: L low back into buttock. Pain Quality: aching. The pain makes it hard for the patient to do these things: walking, sleep and house work. Living Will. Living Will: Living will on file. Healthcare POA: Health care proxy on file. Declaration of Mental Health Treatment: Declaration of mental health treatment on file. Domestic Violence Screen: D (more content not included)... Normal [facility] CBC, EDIF, PLATELETon 2022 ABSOLUTE BASOPHIL COUNT 0.0 10*3/uL 0.0 - 0.2 10*3/uL [facility] Basophils/100 WBC (Bld) 0.1 % 0.0 - 2.0 % [facility] Differential cell count method Nom (Bld) AUTO DIFF % [facility] Eosinophils (Bld) [#/Vol] 0.0 10*3/uL 0.0 - 0.7 10*3/uL [facility] Eosinophils/100 WBC (Bld) 0.7 % 0.0 - 11.0 % [facility] Erythrocyte distribution width (RBC) [Ratio] 14.7 % High 11.5 - 14.5 % [facility] Hematocrit (Bld) [Volume fraction] 40.8 % 36.0 - 48.0 % [facility] Hemoglobin (Bld) [Mass/Vol] 13.4 g/dL [facility] Interpretation and review of laboratory results Abnormal [facility] Lymphocytes (Bld) [#/Vol] 0.6 10*3/uL Low 1.2 - 3.4 10*3/uL [facility] Lymphocytes/100 WBC (Bld) 10.2 % Low 20.0 - 55.0 % [facility] MCH (RBC) [Entitic mass] 29.2 pg 26.0 - 35.0 PG [facility] MCHC (RBC) [Mass/Vol] 32.7 g/dL [facility] MCV (RBC) [Entitic vol] 89.2 fL [facility] Monocytes (Bld) [#/Vol] 0.3 10*3/uL 0.0 - 0.7 10*3/uL [facility] Monocytes/100 WBC (Bld) 5.2 % 0.0 - 10.0 % [facility] Neutrophils (Bld) [#/Vol] 4.6 10*3/uL 1.4 - 6.5 10*3/uL [facility] Neutrophils/100 WBC (Bld) 83.8 % High 37.0 - 75.0 % [facility] Platelet mean volume (Bld) [Entitic vol] 8.6 fL [facility] Platelets (Bld) [#/Vol] 182 10*3/uL 130. 0 - 400.0 10*3/uL [facility] RBC (Bld) [#/Vol] 4.58 10*6/uL 4.0 - 5.4 10*6/uL [facility] WBC (Bld) [#/Vol] 5.5 10*3/uL 3.6 - 11.0 10*3/uL [facility] COMPREHENSIVE METABOLIC PANE Juan 06-15-2022 Albumin [Mass/Vol] 4.1 G/dl 3.5 - 5.0 G/dl [facility] Albumin/Globulin [Mass ratio] 1.2 {ratio} Low [facility] ALP [Catalytic activity/Vol] 67 U/L [facility] ALT [Catalytic activity/Vol] 27 U/L [facility] AST [Catalytic activity/Vol] 27 U/L [facility] Bilirubin [Mass/Vol] 0.8 mg/dL [facility] Calcium [Mass/Vol] 8.8 mg/dL [facility] Chloride [Moles/Vol] 103 mmol/L [facility] CO2 [Moles/Vol] 25 mmol/L [facility] Creatinine [Mass/Vol] 0.86 mg/dL [facility] GFR COMMENT Average GFR for 60-69 years old = 85. [facility] Comment on above: Chronic Kidney disea se, GFR = <60. Kidney failure, GFR = <15. The GFR estimate is not adjusted for extreme body surface area or acute process, nor has it been validated for women or ethnic groups other than and . GFR/1.73 sq M.predicted among blacks MDRD (S/P/Bld) [Vol rate/Area] 85 mL/min/{1.73_m2} ml/min/1.73sq. m [facility] GFR/1.73 sq M.predicted among non-blacks MDRD (S/P/Bld) [Vol rate/Area] 70 mL/min/{1.73_m2} ml/min/1.73sq. m [facility] Glucose post fast [Mass/Vol] 112 mg/dL High [facility] Comment on above: NORMAL <100 mg/dL PREDIABETES 101-126 mg/dL DIABETES 126 mg/dL or higher Interpretation and review of laboratory results Abnormal [facility] Potassium [Moles/Vol] 3.7 mmol/L [facility] Protein [Mass/Vol] 7.5 g/dL [facility] Sodium [Moles/Vol] 136 mmol/L [facility] Urea nitrogen [Mass/Vol] 14 mg/dL [facility] CT Abdomen and Pelvis W radha Harrison 06-15-2022 IMPRESSION:a 1. Mild randi mesentery representing a nonspecific finding. 2. Diverticulosis without diverticulitis. RADIOLOGY CT ABDOMEN/PELVIS WITH CONTRAST: 06/15/2022 9:48 PM EST CLINICAL HISTORY: 66 years old Female with right upper quadrant and epigastric abdominal pain with nausea. TECHNIQUE: Axial CT images through the abdomen and pelvis are obtained after the intravenous administration of contrast. Coronal and sagittal reformations are also obtained. Dose reduction techniques were achieved by using automated exposure control and/or adjustment of mA and/or kV according to patient size and/or use of iterative reconstruction technique. COMPARISON: None available. FINDINGS: The lung bases are clear with no dependent infiltrate or effusion. The gallbladder, pancreas and bilateral adrenal glands are unremarkable. Subcentimeter cyst at the left lateral lobe of the liver is present. No intrahepatic or extrahepatic biliary ductal dilatation. Benign calcified splenic granulomas are of incidental note. Mild randi mesentery with prominent but not enlarged lymph nodes in minimal adjacent stranding is present. The bilateral kidneys demonstrate normal enhancement without hydronephrosis. Subcentimeter simple cyst at the lower pole of the right kidney is present. The bilateral ureters demonstrate no gross abnormality or obstruction. The stomach and small bowel are unremarkable. The appendix is not clearly delineated; however no pericecal inflammatory changes evident. Multiple diverticula of the colon are present most numerous on the left without focal inflammatory change. The bladder appears unremarkable. There is no evidence of aortic aneurysm present. No enlarged lymph nodes are seen. No free air or free fluid is seen. The uterus and adnexa are within normal limits. Mild senescent changes of the osseous structures are present with grade 1 anterolisthesis of L4 in relation to L5 and mild lower lumbar facet arthropathy. No acute compression fracture deformity or suspicious osseous abnormality is identified. RADIOLOGY Felicia Jaeger MD - 06/15/2022 CT ABDOMEN/PELVIS WITH CONTRAST: 06/15/2022 9:48 PM EST CLINICAL HISTORY: 66 years old Female with right upper quadrant and epigastric abdominal pain with nausea. TECHNIQUE: Axial CT images through the abdomen and pelvis are obtained after the intravenous administration of contrast. Coronal and sagittal reformations are also obtained. Dose reduction techniques were achieved by using automated exposure control and/or adjustment of mA and/or kV according to patient size and/or use of iterative reconstruction technique. COMPARISON: None available. FINDINGS: The lung bases are clear with no dependent infiltrate or effusion. The gallbladder, pancreas and bilateral adrenal glands are unremarkable. Subcentimeter cyst at the left lateral lobe of the liver is present. No intrahepatic or extrahepatic biliary ductal dilatation. Benign calcified splenic granulomas are of incidental note. Mild randi mesentery with prominent but not enlarged lymph nodes in minimal adjacent stranding is present. The bilateral kidneys demonstrate normal enhancement without hydronephrosis. Subcentimeter simple cyst at the lower pole of the right kidney is present. The bilateral ureters demonstrate no gross abnormality or obstruction. The stomach and small bowel are unremarkable. The appendix is not clearly delineated; however no pericecal inflammatory changes evident. Multiple diverticula of the colon are present most numerous on the left without focal inflammatory change. The bladder appears unremarkable. There is no evidence of aortic aneurysm present. No enlarged lymph nodes are seen. No free air or free fluid is seen. The uterus and adnexa are within normal limits. Mild senescent changes of the osseous structures are present with grade 1 anterolisthesis of L4 in relation to L5 and mild lower lumbar facet arthropathy. No acute compression fracture deformity or suspicious osseous abnormality is identified. IMPRESSION IMPRESSION:a 1. Mild randi mesentery representing a nonspecific finding. 2. Diverticulosis without diverticulitis. [facility] Radiology Study observation (narrative) [facility] CT Abdomen and Pelvis W cont rast IVOrdered By: Felicia Jaeger on 06-15-2022 [facility] Work Phone: LACTATE, BLOODon 06-15-2022 Lactate [Moles/Vol] 1.0 mmol/L 0.7 - 2. 0 mmol/L [facility] LIPASEon 06-15-2022 Lipase [Catalytic activity/Vol] 37 U/L 23 - 300 U/L [facility] MAGNESIUMon 06-15-2022 Magnesium [Mass/Vol] 2.0 mg/dL [facility] No Panel Informationon 06-15 [facility] RAPID STREP A ANTIGENon S. pyogenes Ag Ql (Throat) Negative NEGATIVE [facility] Comment on above: STREP CULTURE TO FOL LOW TESTING PERFORMED BY ANGEL [facility] TROPONIN I, HIGH SENSITIVITY on 06-15-2022 TROPONIN I, HIGH SENSITIVITY <2 0 - 12 pg/mL [facility] Comment on above: Indeterminant: >12 to 100 pg/mL female >20 to 100 pg/mL male Indicative of myocardial injury. Serial sampling is recommended, a change of greater than or equal to 20 pg/mL is indicative of acute coronary syndrome. [facility] URINALYSIS, MACROon 06-15-19 23 Bilirubin Ql (U) Negative NEGATIVE [facility] Clarity (U) CLEAR CLEAR [facility] Color (U) YELLOW YELLOW [facility] Glucose Test strip (U) [Mass/Vol] Negative NEGATIVE mg/dl [facility] Hemoglobin Ql (U) TRACE-INTACT Abnormal NEGATIVE [facility] Interpretation and review of laboratory results Abnormal [facility] Ketones (U) [Mass/Vol] Negative NEGATIVE mg/d l [facility] Leukocyte esterase Test strip Ql (U) SMALL Abnormal NEGATIVE [facility] Nitrite Ql (U) Negative NEGATIVE [facility] pH (U) 5.5 [pH] 5.0 - 7.0 [facility] Protein Ql (U) Negative NEGATIVE mg/dl [facility] Specific gravity (U) [Rel density] >1.030 High 1.010 - 1.025 [facility] Urobilinogen (U) [Mass/Vol] 0.2 mg/dL [facility] URINE MICROSCOPICon 06-15-19 23 Bacteria LM.HPF (Urine sed) [#/Area] Negative NEGATIVE [facility] Casts LM.LPF (Urine sed) [#/Area] NONE NONE /LPF [facility] Crystals LM Nom (Urine sed) NONE NONE [facility] Epithelial cells LM Ql (Urine sed) 1 TO 5 /HPF [facility] Mucus Ql (Urine sed) Negative NEGATIVE [facility] RBC LM.HPF (Urine sed) [#/Area] Negative NEGATIVE /HPF [facility] Urine sediment comments LM Daniel (Urine sed) CULTURE CRITERIA NOT MET, NO CULTURE PERFORMED. [facility] WBC LM.HPF (Urine sed) [#/Area] 1 TO 5 NEGATIVE /HPF [facility] Therapy Communicationon - Therapy Communication Message KAIA HALEY was (D/C)- last seen: 03/27/22. Pt self-discharged from skilled Physical Therapy at this time. Pt was not able to be fully re-assessed due to self-discharging and not attending final re-evaluation appointment. Refer back in future if necessary. Signatures Electronically signed by : Aleida Metzger, PT; May 16 2022 12:48PM EST (Author) [facility] Therapy Communicationon 11-3 Therapy Communication Message KAIA HALEY no showed today . Signatures Electronically signed by : Miracle Schmitz PTA; Apr 05 2022 9:39AM EST (Author) [facility] Communicationon -2 Therapy Communication Message KAIA HALEY canceled today . Signatures Electronically signed by : Miracle Schmitz PTA; Apr 03 2022 9:24AM EST (Author) [facility] PT Progress Noteon PT Progress Note Therapy Diagnosis Assessed Other spondylosis with radiculopathy, lumbar region (721.3) (M47.26) Spinal stenosis, lumbar region, without neurogenic claudication (724.02) (M48.061) Spondylolisthesis at L4-L5 level (756.12) (M43.16) Plan Goals: Goals set and discussed today. 1. Independent HEP to allow for 50% reduction in max ADL C/C sx ( 10/10) 2-3wks 2. 0/10 night time sx to allow for uninterrupted sleep x1wk ( 06/13) 2-3wks 3. Survey score improvement from 28% to 20% (ANGELIQUE) 3-4wks 4. Strength increase to allow for improved ADL carry, stdg (from gr4- to gr4+ abdominals) 3-4wks 4. ROM increase to allow for improved ADL dressing lowers (from 50% to 75% SSBs) 3-4wks 5. Strength increase to allow for improved ADL stairs (from gr4 to gr4+ LLE myotome) 3-4wks, goal partially met Planned interventions include: aquatic therapy, cryotherapy, dry needling, education/instructio n, electrical stimulation, gait training, home program, hot pack, kinesiotaping, manual therapy, self care/home management, therapeutic exercises and IASTM/cupping. Frequency and duration: 2 time(s) a week, for 4 weeks, for 8 visits . total POC: 14. Potential to achieve rehab goals is fair: chronic syndrome Progress core and glute strength for improved gait and ADL's. Progress with POC, as tolerated. Assessment Improved control with bridges with marches. Fatigues quickly with bridges with marches. Minimal range with hip hikes this date. Added supine resisted marches this date for continued hip strength progression. Clams and reverse clams were added today with cues for improved control and not trunk rolling compensations. Response to treatment: decreased pain, decreased muscle guarding and improved posture. Patient was able to complete today's treatment with some difficulty. Adult Risk Screening There are no spiritual/cultural practices/values/nee ds that are important to know Initial Fall Risk Screening: KAIA has not fallen in the last 6 months. KAIA does not have a fear of falling. She does not need assistance with sitting, standing or walking. Does not need assistance walking in her home. She does not need assistance in an unfamiliar setting. The patient is not using an assistive device. Pain Quality: dull. Living Will. Living Will: Living will on file. Patient Declined. Healthcare POA: Health care proxy on file. Patient Declined. Declaration of Mental Health Treatment: No mental health treatment on file. Patient Declined. Insurance Insurance reviewed Visit number: 14 POC: 04/19 Evaluating therapist Miguel Angel Horan PT. M47.36; M48.061; M43.16 Subjective Patient reports:. Patient reports that she was mildly sore after last visit. 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 Did not do new HEP over the weekend. Does do other HEP intermittently throughout the day. Patient identified by name and date of . Home program performing as directed: Yes. Precautions: none. Fall Risk: none Treatment Time in clinic started at 9:15 am Time in clinic ended at 10:02 am Total time in clinic is 47 minutes. Total timed code time is 45 minutes. Therapeutic exercise (13434): timed minutes 29, units 2 . Nustep 5' Lv 2 Piriformis 5x10 holds B/L FIgure 4 w/ twist for QL 5x10 holds B/L Bridge w/ july 2 x 10 (P reps) Supine Marches + green band 2 x 10 3 hold (N) S/L Hip ABD AND Ext combo w/ band (N) S/L Clam shell 2 x 10 (N) S/L Reverse clamshel (A) Standing hip ABD 2 x 10 Standing hip Ext 2 x 10 Heel raises 2 x 10 Mini squats 2 x 10 Hip IR [place] 2 x 10 Side steps 2 x 10 Hip Hikes 2 x 10 D/C to HEP: Hip Flexor stretch 10 x 10 Standing IT/QL stretch 10 x 10 SKTC 2 x 10 Glute squeezes 2 x 10 Supine hip ADD w/ playball TrA 2 x 10 Posterior pelvic tilt 2 x 10 LTR 2 x 10 . Manual Therapy (69327): timed minutes 10, units 1 . STM to Left hip flexor, TFL, Glutes Max and Glutes Med. Aquatic Therapy (09454):. All exercises preformed in 70-75% unloading unless noted TrA x10 5? hold/instruction (review) Side Stepping 3 laps Hip flex x12 P Hip abd x12 P Alt march X12 P Squats x12 P Heel raises x12 P Paddles with TrA Level 1 X15 P -flex/ext, push/pull, abd/add, H abd/add Dumbbell Rolls 20 fwd/bwd ABDOMINALS x 10 ea. flexion, push/pull, sm. blue board N 100% Unloading with LG noodle and B UE support -bike 5? -abd/add 5? -hang 5? Gradual exit 3? . Provided today:. Handout given for progression of HEP this date. Patient verbalized and demo'd understanding of correct form and technique. Exercises given are listed below: 03/27/22: 1. clamshell 2. Reverse clamshell 3. Hip hikes 1. Bridges with julyes 2. S/L hip abd + ext Access Code: [email or web address] URL: [email or web address] Date: 02/20/2022 Prepared by: Aleida Metzger Exercises Supine Figure 4 Piriformis Stretch - 1 x daily - 7 x weekly - 1 sets - 5 (more content not included)... Normal Touchworks PT Progress Noteon 2 PT Progress Note Therapy Diagnosis Assessed Other spondylosis with radiculopathy, lumbar region (721.3) (M47.26) Spondylolisthesis at L4-L5 level (756.12) (M43.16) Spinal stenosis, lumbar region, without neurogenic claudication (724.02) (M48.061) Plan Goals: Goals set and discussed today. 1. Independent HEP to allow for 50% reduction in max ADL C/C sx ( 10) 2-3wks 2. 0/10 night time sx to allow for uninterrupted sleep x1wk ( 06/13) 2-3wks 3. Survey score improvement from 28% to 20% (ANGELIQUE) 3-4wks 4. Strength increase to allow for improved ADL carry, stdg (from gr4- to gr4+ abdominals) 3-4wks 4. ROM increase to allow for improved ADL dressing lowers (from 50% to 75% SSBs) 3-4wks 5. Strength increase to allow for improved ADL stairs (from gr4 to gr4+ LLE myotome) 3-4wks, goal partially met Planned interventions include: aquatic therapy, cryotherapy, dry needling, education/instructio n, electrical stimulation, gait training, home program, hot pack, kinesiotaping, manual therapy, self care/home management, therapeutic exercises and IASTM/cupping. Frequency and duration: 2 time(s) a week, for 4 weeks, for 8 visits . total POC: 14. Potential to achieve rehab goals is fair: chronic syndrome Progress with DLS and glute retraining for improved daily function. Progress with POC, as tolerated. Assessment Added more glute exercises this date for focus on glute retraining. Cues for correct form with hip hikes. Difficulty with hike on the R d/t fatigue when standing on the L. Fatigues quickly with newly added exercises this date. New HEP given today,. Response to treatment: decreased pain, decreased muscle guarding and improved posture. Patient was able to complete today's treatment with some difficulty. Adult Risk Screening There are no spiritual/cultural practices/values/nee ds that are important to know Initial Fall Risk Screening: KAIA has not fallen in the last 6 months. KAIA does not have a fear of falling. She does not need assistance with sitting, standing or walking. Does not need assistance walking in her home. She does not need assistance in an unfamiliar setting. The patient is not using an assistive device. Pain Quality: dull. Living Will. Living Will: Living will on file. Patient Declined. Healthcare POA: Health care proxy on file. Patient Declined. Declaration of Mental Health Treatment: No mental health treatment on file. Patient Declined. Insurance Insurance reviewed Visit number: 13 POC: 04/19 Evaluating therapist Miguel Angel Horan PT. M47.36; M48.061; M43.16 Subjective Patient reports:. Patient reports that the back is feeling ok today. States that she had to drive from [place] today but had her heating pad. States that she is still having difficulty with standing for completion of ADL's. Patient identified by name and date of . Home program performing as directed: Yes. Precautions: none. Fall Risk: none Treatment Time in clinic started at 9:20 am Time in clinic ended at 10:00 am Total time in clinic is 40 minutes. Total timed code time is 39 minutes. Therapeutic exercise (23399): timed minutes 29, units 2 . Nustep 5' Lv 2 Piriformis 5x10 holds B/L FIgure 4 w/ twist for QL 5x10 holds B/L (N) Bridge w/ march (N) S/L Hip ABD AND Ext combo w/ band (N) Standing hip ABD 2 x 10 Standing hip Ext 2 x 10 Heel raises 2 x 10 Mini squats 2 x 10 Hip IR [place] 2 x 10 Side steps 2 x 10 Hip Hikes 2 x 10 (N) D/C to HEP: Hip Flexor stretch 10 x 10 Standing IT/QL stretch 10 x 10 SKTC 2 x 10 Glute squeezes 2 x 10 Supine hip ADD w/ playball TrA 2 x 10 Posterior pelvic tilt 2 x 10 LTR 2 x 10 . Manual Therapy (72377): timed minutes 10, units 1 . STM to Left hip flexor, TFL, Glutes Max and Glutes Med. Aquatic Therapy (18637):. All exercises preformed in 70-75% unloading unless noted TrA x10 5? hold/instruction (review) Side Stepping 3 laps Hip flex x12 P Hip abd x12 P Alt march X12 P Squats x12 P Heel raises x12 P Paddles with TrA Level 1 X15 P -flex/ext, push/pull, abd/add, H abd/add Dumbbell Rolls 20 fwd/bwd ABDOMINALS x 10 ea. flexion, push/pull, sm. blue board N 100% Unloading with LG noodle and B UE support -bike 5? -abd/add 5? -hang 5? Gradual exit 3? . Provided today:. Handout given for progression of HEP this date. Patient verbalized and demo'd understanding of correct form and technique. Exercises given are listed below: 1. Bridges with patrizia 2. S/L hip abd + ext Access Code: [email or web address] URL: [email or web address] Date: 02/20/2022 Prepared by: Aleida Metzger Exercises Supine Figure 4 Piriformis Stretch - 1 x daily - 7 x weekly - 1 sets - 5 reps - 10 hold Hooklying Single Knee to Chest Stretch - 1 x daily - 7 x weekly - 1 sets - 10 reps - 5 hold Roller Massage Elongated IT Band Release - 1 x daily - 7 x weekly - 3 sets - 10 reps Standing Glute Med Mobilization with Small Ball on (more content not included)... Normal SportSetter PT Progress Noteon 2 PT Progress Note Therapy Diagnosis Assessed Other spondylosis with radiculopathy, lumbar region (721.3) (M47.26) Spondylolisthesis at L4-L5 level (756.12) (M43.16) Spinal stenosis, lumbar region, without neurogenic claudication (724.02) (M48.061) Plan Goals: Goals set and discussed today. 1. Independent HEP to allow for 50% reduction in max ADL C/C sx ( 10) 2-3wks 2. 0/10 night time sx to allow for uninterrupted sleep x1wk ( 06/13) 2-3wks 3. Survey score improvement from 28% to 20% (ANGELIQUE) 3-4wks 4. Strength increase to allow for improved ADL carry, stdg (from gr4- to gr4+ abdominals) 3-4wks 4. ROM increase to allow for improved ADL dressing lowers (from 50% to 75% SSBs) 3-4wks 5. Strength increase to allow for improved ADL stairs (from gr4 to gr4+ LLE myotome) 3-4wks, goal partially met Planned interventions include: aquatic therapy, cryotherapy, dry needling, education/instructio n, electrical stimulation, gait training, home program, hot pack, kinesiotaping, manual therapy, self care/home management, therapeutic exercises and IASTM/cupping. Frequency and duration: 2 time(s) a week, for 4 weeks, for 8 visits . total POC: 14. Potential to achieve rehab goals is fair: chronic syndrome Progress with DLS and glute retraining to improve ease with prollonged standing/ambulation for ADLs. Progress with POC, as tolerated. Assessment Pt reassessed this date by supervising PT with improvements noted in subjective report with ANGELIQUE score improving since last session. Pt presented this date with mild myofascial restriction throughout Left sided hip and lumbar musculature, which responded well to STM. Pt still fatigues quickly in proximal hip/core musculature and would benefit from progression of glute retraining, core stabilization, and balance training to improve ease with prolonged standing/ambulation. Response to treatment: decreased pain, decreased muscle guarding and improved posture. Patient was able to complete today's treatment with some difficulty. Adult Risk Screening There are no spiritual/cultural practices/values/nee ds that are important to know Initial Fall Risk Screening: KAIA has not fallen in the last 6 months. KAIA does not have a fear of falling. She does not need assistance with sitting, standing or walking. Does not need assistance walking in her home. She does not need assistance in an unfamiliar setting. The patient is not using an assistive device. Pain Scale: On a scale of 0 to 10, the patient rates the pain at 1. Pain Quality: dull. Living Will. Living Will: Living will on file. Patient Declined. Healthcare POA: Health care proxy on file. Patient Declined. Declaration of Mental Health Treatment: No mental health treatment on file. Patient Declined. Insurance Insurance reviewed Visit number: 12 POC: 04/19 Evaluating therapist Miguel Angel Horan PT. M47.36; M48.061; M43.16 Subjective Patient reports:. Pt notes she played [employer] ball and tolerated well. Pt notes her HEP is going. Has not been getting as frequent pain into LLE. Pt notes there was only one day in [place] where she wished she had a heating pad after having to walk a lot at a mall. Patient identified by name and date of . Home program performing as directed: Yes. Precautions: none. Fall Risk: none Objective Ortho Slump Test: LLE: (+) RLE: (-) MMT: LLE Hip Flex: 4-/5-->4/5 Knee Ext: 4/5-->5/5 Knee Flex: 4/5->5/5 Ankle DF: 4/5 -->5/5. ROM / Joint Mobility (Range of Motion in degrees) Lumbar: (Carroll = P! Denotes Pain with Movement) Extension: Active 90%. Flexion: Active WFL. Side Bend: R Active 90%, L Active 90%. Rotation: R Active 100%, L Active 100%. Neurological Right Myotomal Testing: L2 hip flexion normal, L3 knee extension normal, L4 ankle dorsiflexion, inversion normal, L5 great toe extension normal, S1 ankle plantar flexion and eversion normal Left Myotomal Testing: L2 hip flexion impaired 4, L3 knee extension impaired 4, L4 ankle dorsiflexion, inversion impaired 4, L5 great toe extension normal, S1 ankle plantar flexion and eversion impaired 4 Outcome Measures Modified Oswestry Low Back Pain Disability Index score: 28%-->36%-->32% Treatment Time in clinic started at 10:48 am Time in clinic ended at 11:30 am Total time in clinic is 45 minutes. Total timed code time is 40 minutes. Therapeutic exercise (72098): timed minutes 26, units 2 . Nustep 5' Lv 2 (P lv) Pt re-assessed for updated POC, updated/reviewed HEP, and discussed continued symptom management x 20' Piriformis 5x10 holds B/L FIgure 4 w/ twist for QL 5x10 holds B/L (N) No Time/Resume next: Bridge w/ july (A) S/L Hip ABD AND Ext combo w/ band (A) Standing hip ABD 2 x 10 Standing hip Ext 2 x 10 Heel raises 2 x 10 Mini squats 2 x 10 Hip IR [place] 2 x 10 Side steps 2 x 10 D/C to HEP: Hip Flexor stretch 10 x 10 Standing IT/QL stretch 10 x 10 SKTC 2 x 10 Glute squeezes 2 x 10 Supine hi (more content not included)... Normal Touchworks Therapy Re-eval Noteon 03-20 Therapy Re-eval Note Therapy Diagnosis Assessed 1. Other spondylosis with radiculopathy, lumbar region (721.3) (M47.26) 2. Spondylolisthesis at L4-L5 level (756.12) (M43.16) 3. Spinal stenosis, lumbar region, without neurogenic claudication (724.02) (M48.061) Plan Goals: Goals set and discussed today. 1. Independent HEP to allow for 50% reduction in max ADL C/C sx ( 02/13) 2-3wks 2. 0/10 night time sx to allow for uninterrupted sleep x1wk ( 06/13) 2-3wks 3. Survey score improvement from 28% to 20% (ANGELIQUE) 3-4wks 4. Strength increase to allow for improved ADL carry, stdg (from gr4- to gr4+ abdominals) 3-4wks 4. ROM increase to allow for improved ADL dressing lowers (from 50% to 75% SSBs) 3-4wks 5. Strength increase to allow for improved ADL stairs (from gr4 to gr4+ LLE myotome) 3-4wks, goal partially met Planned interventions include: aquatic therapy, cryotherapy, dry needling, education/instructio n, electrical stimulation, gait training, home program, hot pack, kinesiotaping, manual therapy, self care/home management, therapeutic exercises and IASTM/cupping. Frequency and duration: 2 time(s) a week, for 4 weeks, for 8 visits . total POC: 14. Potential to achieve rehab goals is fair: chronic syndrome Progress with DLS and glute retraining to improve ease with prollonged standing/ambulation for ADLs. Progress with POC, as tolerated. Assessment Pt reassessed this date by supervising PT with improvements noted in subjective report with ANGELIQUE score improving since last session. Pt presented this date with mild myofascial restriction throughout Left sided hip and lumbar musculature, which responded well to STM. Pt still fatigues quickly in proximal hip/core musculature and would benefit from progression of glute retraining, core stabilization, and balance training to improve ease with prolonged standing/ambulation. Response to treatment: decreased pain, decreased muscle guarding and improved posture. Patient was able to complete today's treatment with some difficulty. Adult Risk Screening There are no spiritual/cultural practices/values/nee ds that are important to know Initial Fall Risk Screening: KAIA has not fallen in the last 6 months. KAIA does not have a fear of falling. She does not need assistance with sitting, standing or walking. Does not need assistance walking in her home. She does not need assistance in an unfamiliar setting. The patient is not using an assistive device. Pain Scale: On a scale of 0 to 10, the patient rates the pain at 1. Pain Quality: dull. Living Will. Living Will: Living will on file. Patient Declined. Healthcare POA: Health care proxy on file. Patient Declined. Declaration of Mental Health Treatment: No mental health treatment on file. Patient Declined. Insurance Insurance reviewed Visit number: 12 POC: 04/19 Evaluating therapist Miguel Angel Horan PT. M47.36; M48.061; M43.16 Subjective Patient reports:. Pt notes she played [employer] ball and tolerated well. Pt notes her HEP is going. Has not been getting as frequent pain into LLE. Pt notes there was only one day in [place] where she wished she had a heating pad after having to walk a lot at a mall. Patient identified by name and date of . Home program performing as directed: Yes. Precautions: none. Fall Risk: none Objective Ortho Slump Test: LLE: (+) RLE: (-) MMT: LLE Hip Flex: 4-/5-->4/5 Knee Ext: 4/5-->5/5 Knee Flex: 4/5->5/5 Ankle DF: 4/5 -->5/5. ROM / Joint Mobility (Range of Motion in degrees) Lumbar: (Carroll = P! Denotes Pain with Movement) Extension: Active 90%. Flexion: Active WFL. Side Bend: R Active 90%, L Active 90%. Rotation: R Active 100%, L Active 100%. Neurological Right Myotomal Testing: L2 hip flexion normal, L3 knee extension normal, L4 ankle dorsiflexion, inversion normal, L5 great toe extension normal, S1 ankle plantar flexion and eversion normal Left Myotomal Testing: L2 hip flexion impaired 4, L3 knee extension impaired 4, L4 ankle dorsiflexion, inversion impaired 4, L5 great toe extension normal, S1 ankle plantar flexion and eversion impaired 4 Outcome Measures Modified Oswestry Low Back Pain Disability Index score: 28%-->36%-->32% Treatment Time in clinic started at 10:48 am Time in clinic ended at 11:30 am Total time in clinic is 45 minutes. Total timed code time is 40 minutes. Therapeutic exercise (82638): timed minutes 26, units 2 . Nustep 5' Lv 2 (P lv) Pt re-assessed for updated POC, updated/reviewed HEP, and discussed continued symptom management x 20' Piriformis 5x10 holds B/L FIgure 4 w/ twist for QL 5x10 holds B/L (N) No Time/Resume next: Bridge w/ july (A) S/L Hip ABD AND Ext combo w/ band (A) Standing hip ABD 2 x 10 Standing hip Ext 2 x 10 Heel raises 2 x 10 Mini squats 2 x 10 Hip IR [place] 2 x 10 Side steps 2 x 10 D/C to HEP: Hip Flexor stretch 10 x 10 Standing IT/QL stretch 10 x 10 SKTC 2 x 10 Glute squeezes 2 x 10 (more content not included)... Normal [employer]Setter PT Progress Noteon 2 PT Progress Note Therapy Diagnosis Assessed Other spondylosis with radiculopathy, lumbar region (721.3) (M47.26) Spinal stenosis, lumbar region, without neurogenic claudication (724.02) (M48.061) Spondylolisthesis at L4-L5 level (756.12) (M43.16) Plan Goals: Goals set and discussed today. 1. Independent HEP to allow for 50% reduction in max ADL C/C sx ( 1010) 2-3wks 2. 0/10 night time sx to allow for uninterrupted sleep x1wk ( 06/13) 2-3wks 3. Survey score improvement from 28% to 20% (ANGELIQUE) 3-4wks 4. Strength increase to allow for improved ADL carry, stdg (from gr4- to gr4+ abdominals) 3-4wks 4. ROM increase to allow for improved ADL dressing lowers (from 50% to 75% SSBs) 3-4wks 5. Strength increase to allow for improved ADL stairs (from gr4 to gr4+ LLE myotome) 3-4wks, goal partially met Planned interventions include: aquatic therapy, cryotherapy, dry needling, education/instructio n, electrical stimulation, gait training, home program, hot pack, kinesiotaping, manual therapy, self care/home management, therapeutic exercises and IASTM/cupping. Frequency and duration: 2 time(s) a week, for 4 weeks, for 8 visits . total POC: 14. Potential to achieve rehab goals is fair: chronic syndrome Plan to continue with DLS in multiple positions to strengthen core in different positional planes. Progress with POC, as tolerated. Assessment Improved glute strength progression as able. Improved ability to complete transfers with decreased guarding. Improved core activation for standing DLS. Response to treatment: decreased pain, decreased muscle guarding and improved posture. Patient was able to complete today's treatment with some difficulty. Adult Risk Screening There are no spiritual/cultural practices/values/nee ds that are important to know Initial Fall Risk Screening: KAIA has not fallen in the last 6 months. KAIA does not have a fear of falling. She does not need assistance with sitting, standing or walking. Does not need assistance walking in her home. She does not need assistance in an unfamiliar setting. The patient is not using an assistive device. Please identify location of pain: LB; L Buttock; LLE through to the knee; cramping calf. Living Will. Living Will: Living will on file. Patient Declined. Healthcare POA: Health care proxy on file. Patient Declined. Declaration of Mental Health Treatment: No mental health treatment on file. Patient Declined. Insurance Insurance reviewed Visit number: 11 POC: 12/18 Evaluating therapist Miguel Angel Horan PT. M47.36; M48.061; M43.16 Subjective Patient reports:. Patient states that her back was very sore yesterday and she is not sure of the cause. States that her back is much better today, States that symptoms are usually worse at the end of the day and dependent on what she has been doing. States that the last injection did not do as much as the last one did. Patient identified by name and date of . Home program performing as directed: Yes. Precautions: none. Fall Risk: none Treatment Time in clinic started at 10:45 am Time in clinic ended at 11:30 am Total time in clinic is 45 minutes. Total timed code time is 44 minutes. Therapeutic exercise (54073): timed minutes 44, units 3 . Nustep 5' Piriformis 2x10 holds B/L Hip Flexor stretch 10 x 10 Standing IT/QL stretch 10 x 10 SKTC 2 x 10 Standing hip ABD 2 x 10 Standing hip Ext 2 x 10 Heel raises 2 x 10 Mini squats 2 x 10 Glute squeezes 2 x 10 Side steps 2 x 10 Supine hip ADD w/ playball TrA 2 x 10 Posterior pelvic tilt 2 x 10 LTR 2 x 10 Hip IR [place] 2 x 10 . Manual Therapy (57192):. STM to Left hip flexor, TFL, Glutes Max and Glutes Med (X). Aquatic Therapy (25770):. All exercises preformed in 70-75% unloading unless noted TrA x10 5? hold/instruction (review) Side Stepping 3 laps Hip flex x12 P Hip abd x12 P Alt march X12 P Squats x12 P Heel raises x12 P Paddles with TrA Level 1 X15 P -flex/ext, push/pull, abd/add, H abd/add Dumbbell Rolls 20 fwd/bwd ABDOMINALS x 10 ea. flexion, push/pull, sm. blue board N 100% Unloading with LG noodle and B UE support -bike 5? -abd/add 5? -hang 5? Gradual exit 3? . Provided today:. Access Code: [email or web address] URL: [email or web address] Date: 02/20/2022 Prepared by: Aleida Metzger Exercises Supine Figure 4 Piriformis Stretch - 1 x daily - 7 x weekly - 1 sets - 5 reps - 10 hold Hooklying Single Knee to Chest Stretch - 1 x daily - 7 x weekly - 1 sets - 10 reps - 5 hold Roller Massage Elongated IT Band Release - 1 x daily - 7 x weekly - 3 sets - 10 reps Standing Glute Med Mobilization with Small Ball on Wall - 1 x daily - 7 x weekly - 3 sets - 10 reps Handout given for progression of HEP this date. Patient verbalized and demo'd understanding of correct form and technique. Exercises given are listed below: [employer] Access Code [email or web address] Heel raises 2 x 10 (N) Glute squeezes 2 x (more content not included)... Normal Touchworks PT Progress Noteon 2 PT Progress Note Therapy Diagnosis Assessed Other spondylosis with radiculopathy, lumbar region (721.3) (M47.26) Spinal stenosis, lumbar region, without neurogenic claudication (724.02) (M48.061) Spondylolisthesis at L4-L5 level (756.12) (M43.16) Plan Goals: Goals set and discussed today. 1. Independent HEP to allow for 50% reduction in max ADL C/C sx ( 10) 2-3wks 2. 0/10 night time sx to allow for uninterrupted sleep x1wk ( 06/13) 2-3wks 3. Survey score improvement from 28% to 20% (ANGELIQUE) 3-4wks 4. Strength increase to allow for improved ADL carry, stdg (from gr4- to gr4+ abdominals) 3-4wks 4. ROM increase to allow for improved ADL dressing lowers (from 50% to 75% SSBs) 3-4wks 5. Strength increase to allow for improved ADL stairs (from gr4 to gr4+ LLE myotome) 3-4wks, goal partially met Planned interventions include: aquatic therapy, cryotherapy, dry needling, education/instructio n, electrical stimulation, gait training, home program, hot pack, kinesiotaping, manual therapy, self care/home management, therapeutic exercises and IASTM/cupping. Frequency and duration: 2 time(s) a week, for 4 weeks, for 8 visits . total POC: 14. Potential to achieve rehab goals is fair: chronic syndrome Plan to continue with core strength progression for decreased pain and improved functional mobility. Progress with POC, as tolerated. Monitor home program. Assessment Cues to relax with SKTC d/t patient was actively flexing her leg instead of relaxing to feel the stretch. Good technique with pelvic tilts. Improved ability to complete standing PRE's with improved core control and stability. Response to treatment: decreased pain, decreased muscle guarding and improved posture. Patient was able to complete today's treatment with some difficulty. Adult Risk Screening There are no spiritual/cultural practices/values/nee ds that are important to know Initial Fall Risk Screening: KAIA has not fallen in the last 6 months. KAIA does not have a fear of falling. She does not need assistance with sitting, standing or walking. Does not need assistance walking in her home. She does not need assistance in an unfamiliar setting. The patient is not using an assistive device. Please identify location of pain: LB; L Buttock; LLE through to the knee; cramping calf. Living Will. Living Will: Living will on file. Patient Declined. Healthcare POA: Health care proxy on file. Patient Declined. Declaration of Mental Health Treatment: No mental health treatment on file. Patient Declined. Insurance Insurance reviewed Visit number: 10 POC: 12/18 Evaluating therapist Miguel Angel Horan PT. M47.36; M48.061; M43.16 Subjective Patient reports:. Patient reports that she feels like a sore muscle pain that is higher on the L side of her back. States these sx's started 2 days ago. Patient identified by name and date of . Home program performing as directed: Yes. Precautions: none. Fall Risk: none Treatment Time in clinic started at 10:45 am Time in clinic ended at 11:30 am Total time in clinic is 45 minutes. Total timed code time is 44 minutes. Therapeutic exercise (69806): timed minutes 44, units 3 . Nustep 5' Piriformis 2x10 holds B/L Hip Flexor stretch 10 x 10 (N) Standing IT/QL stretch 10 x 10 (N) SKTC 2 x 10 Standing hip ABD 2 x 10 Standing hip Ext 2 x 10 Heel raises 2 x 10 Mini squats 2 x 10 Glute squeezes 2 x 10 Side steps 2 x 10 Supine hip ADD w/ playball TrA 2 x 10 Posterior pelvic tilt 2 x 10 LTR 2 x 10 Hip IR [place] 2 x 10 . Manual Therapy (55272):. STM to Left hip flexor, TFL, Glutes Max and Glutes Med (X). Aquatic Therapy (36300):. All exercises preformed in 70-75% unloading unless noted TrA x10 5? hold/instruction (review) Side Stepping 3 laps Hip flex x12 P Hip abd x12 P Alt march X12 P Squats x12 P Heel raises x12 P Paddles with TrA Level 1 X15 P -flex/ext, push/pull, abd/add, H abd/add Dumbbell Rolls 20 fwd/bwd ABDOMINALS x 10 ea. flexion, push/pull, sm. blue board N 100% Unloading with LG noodle and B UE support -bike 5? -abd/add 5? -hang 5? Gradual exit 3? . Provided today:. Access Code: [email or web address] URL: [email or web address]/ Date: 02/20/2022 Prepared by: Aleida Metzger Exercises Supine Figure 4 Piriformis Stretch - 1 x daily - 7 x weekly - 1 sets - 5 reps - 10 hold Hooklying Single Knee to Chest Stretch - 1 x daily - 7 x weekly - 1 sets - 10 reps - 5 hold Roller Massage Elongated IT Band Release - 1 x daily - 7 x weekly - 3 sets - 10 reps Standing Glute Med Mobilization with Small Ball on Wall - 1 x daily - 7 x weekly - 3 sets - 10 reps Handout given for progression of HEP this date. Patient verbalized and demo'd understanding of correct form and technique. Exercises given are listed below: [employer] Access Code [email or web address] Heel raises 2 x 10 (N) Glute squeezes 2 x 10 Side steps 2 x 10 (N) Supine hip ADD w/ playball TrA 2 x 1 (more content not included)... Normal [facility] PT Progress Noteon 2 PT Progress Note Therapy Diagnosis Assessed Other spondylosis with radiculopathy, lumbar region (721.3) (M47.26) Spinal stenosis, lumbar region, without neurogenic claudication (724.02) (M48.061) Spondylolisthesis at L4-L5 level (756.12) (M43.16) Plan Goals: Goals set and discussed today. 1. Independent HEP to allow for 50% reduction in max ADL C/C sx ( 10) 2-3wks 2. 0/10 night time sx to allow for uninterrupted sleep x1wk ( 06/13) 2-3wks 3. Survey score improvement from 28% to 20% (ANGELIQUE) 3-4wks 4. Strength increase to allow for improved ADL carry, stdg (from gr4- to gr4+ abdominals) 3-4wks 4. ROM increase to allow for improved ADL dressing lowers (from 50% to 75% SSBs) 3-4wks 5. Strength increase to allow for improved ADL stairs (from gr4 to gr4+ LLE myotome) 3-4wks, goal partially met Planned interventions include: aquatic therapy, cryotherapy, dry needling, education/instructio n, electrical stimulation, gait training, home program, hot pack, kinesiotaping, manual therapy, self care/home management, therapeutic exercises and IASTM/cupping. Frequency and duration: 2 time(s) a week, for 4 weeks, for 8 visits . total POC: 14. Potential to achieve rehab goals is fair: chronic syndrome Will STW as needed and continue with progression of core strength. Progress with POC, as tolerated. Monitor home program. Assessment Continued to focus on stretching and core strengthening. Gave handout of exercises that were completed in the pool at the start of her therapy sessions. Patient is demonstrating improved core control with PPT. Improved mobility with LTR. Response to treatment: decreased pain, decreased muscle guarding and improved posture. Patient was able to complete today's treatment with some difficulty. Adult Risk Screening There are no spiritual/cultural practices/values/nee ds that are important to know Initial Fall Risk Screening: KAIA has not fallen in the last 6 months. KAIA does not have a fear of falling. She does not need assistance with sitting, standing or walking. Does not need assistance walking in her home. She does not need assistance in an unfamiliar setting. The patient is not using an assistive device. Please identify location of pain: LB; L Buttock; LLE through to the knee; cramping calf. Living Will. Living Will: Living will on file. Patient Declined. Healthcare POA: Health care proxy on file. Patient Declined. Declaration of Mental Health Treatment: No mental health treatment on file. Patient Declined. Insurance Insurance reviewed Visit number: 9 POC: 12/18 Evaluating therapist Miguel Angel Horan PT. M47.36; M48.061; M43.16 Subjective Patient reports:. Patient reports that she felt mildly sore but felt like she got a good workout after last visit. States that she is feeling good this morning with 0/10. States that he watched her 2 year old granddaughter and was carrying her up/down stairs, was worried it was going to aggravate her back. Patient identified by name and date of . Home program performing as directed: Yes. Precautions: none. Fall Risk: none Treatment Time in clinic started at 10:00 am Time in clinic ended at 10:45 am Total time in clinic is 45 minutes. Total timed code time is 44 minutes. Therapeutic exercise (04974): timed minutes 44, units 3 . Nustep 5' Piriformis 2x10 holds B/L Hip Flexor stretch 10 x 10 (N) Standing IT/QL stretch 10 x 10 (N) SKTC 2 x 10 (N) Standing hip ABD 2 x 10 Standing hip Ext 2 x 10 Heel raises 2 x 10 Mini squats 2 x 10 Glute squeezes 2 x 10 Side steps 2 x 10 Supine hip ADD w/ playball TrA 2 x 10 Posterior pelvic tilt 2 x 10 LTR 2 x 10 Hip IR [place] 2 x 10 . Manual Therapy (33406):. STM to Left hip flexor, TFL, Glutes Max and Glutes Med (X). Aquatic Therapy (64254):. All exercises preformed in 70-75% unloading unless noted TrA x10 5? hold/instruction (review) Side Stepping 3 laps Hip flex x12 P Hip abd x12 P Alt july X12 P Squats x12 P Heel raises x12 P Paddles with TrA Level 1 X15 P -flex/ext, push/pull, abd/add, H abd/add Dumbbell Rolls 20 fwd/bwd ABDOMINALS x 10 ea. flexion, push/pull, sm. blue board N 100% Unloading with LG noodle and B UE support -bike 5? -abd/add 5? -hang 5? Gradual exit 3? . Provided today:. Access Code: [email or web address] URL: [email or web address] Date: 02/20/2022 Prepared by: Aleida Metzger Exercises Supine Figure 4 Piriformis Stretch - 1 x daily - 7 x weekly - 1 sets - 5 reps - 10 hold Hooklying Single Knee to Chest Stretch - 1 x daily - 7 x weekly - 1 sets - 10 reps - 5 hold Roller Massage Elongated IT Band Release - 1 x daily - 7 x weekly - 3 sets - 10 reps Standing Glute Med Mobilization with Small Ball on Wall - 1 x daily - 7 x weekly - 3 sets - 10 reps Handout given for progression of HEP this date. Patient verbalized and demo'd understanding of correct form and technique. Exercises given are listed below: ME (more content not included)... Normal [facility] PT Progress Noteon 2 PT Progress Note Therapy Diagnosis Assessed Other spondylosis with radiculopathy, lumbar region (721.3) (M47.26) Spinal stenosis, lumbar region, without neurogenic claudication (724.02) (M48.061) Spondylolisthesis at L4-L5 level (756.12) (M43.16) Plan Goals: Goals set and discussed today. 1. Independent HEP to allow for 50% reduction in max ADL C/C sx ( 02/13) 2-3wks 2. 0/10 night time sx to allow for uninterrupted sleep x1wk ( 06/13) 2-3wks 3. Survey score improvement from 28% to 20% (ANGELIQUE) 3-4wks 4. Strength increase to allow for improved ADL carry, stdg (from gr4- to gr4+ abdominals) 3-4wks 4. ROM increase to allow for improved ADL dressing lowers (from 50% to 75% SSBs) 3-4wks 5. Strength increase to allow for improved ADL stairs (from gr4 to gr4+ LLE myotome) 3-4wks, goal partially met Planned interventions include: aquatic therapy, cryotherapy, dry needling, education/instructio n, electrical stimulation, gait training, home program, hot pack, kinesiotaping, manual therapy, self care/home management, therapeutic exercises and IASTM/cupping. Frequency and duration: 2 time(s) a week, for 4 weeks, for 8 visits . total POC: 14. Potential to achieve rehab goals is fair: chronic syndrome Will complete STW next date and continue with stretches and glute activation DLS/PREs. Progress with POC, as tolerated. Monitor home program. Assessment Reviewed HEP given last visit. Added standing hip flexor and ITB stretches this date with tightness on the R > L. Issued handout for progression of HEP. Improved gait observed in clinic with decreased trunk flexion and guarding. Response to treatment: decreased pain, decreased muscle guarding and improved posture. Patient was able to complete today's treatment with some difficulty. Adult Risk Screening There are no spiritual/cultural practices/values/nee ds that are important to know Initial Fall Risk Screening: KAIA has not fallen in the last 6 months. KAIA does not have a fear of falling. She does not need assistance with sitting, standing or walking. Does not need assistance walking in her home. She does not need assistance in an unfamiliar setting. The patient is not using an assistive device. Please identify location of pain: LB; L Buttock; LLE through to the knee; cramping calf. Living Will. Living Will: Living will on file. Patient Declined. Healthcare POA: Health care proxy on file. Patient Declined. Declaration of Mental Health Treatment: No mental health treatment on file. Patient Declined. Insurance Insurance reviewed Visit number: 8 POC: 12/18 Evaluating therapist Miguel Angel Horan PT. M47.36; M48.061; M43.16 Subjective Patient reports:. Patient reports that she did something and her back was sore yesterday and got discouraged. States that she was bending and cutting hernández, so this probably did it. States that it is better this A.M. but not 100%. Pain level currently 3/10. Patient identified by name and date of . Home program performing as directed: Yes. Precautions: none. Fall Risk: none Treatment Time in clinic started at 8:30 am Time in clinic ended at 9:15 am Total time in clinic is 45 minutes. Total timed code time is 44 minutes. Therapeutic exercise (33483): timed minutes 44, units 3 . Nustep 5' Piriformis 2x10 holds B/L Hip Flexor stretch 10 x 10 (N) Standing IT/QL stretch 10 x 10 (N) SKTC 2 x 10 (N) Standing hip ABD 2 x 10 Standing hip Ext 2 x 10 Heel raises 2 x 10 Mini squats 2 x 10 Glute squeezes 2 x 10 Side steps 2 x 10 Supine hip ADD w/ playball TrA 2 x 10 (N) Posterior pelvic tilt 2 x 10 (N) LTR 2 x 10 Hip IR [place] 2 x 10 (N) . Manual Therapy (76740): timed minutes , units . STM to Left hip flexor, TFL, Glutes Max and Glutes Med (X). Aquatic Therapy (25937):. All exercises preformed in 70-75% unloading unless noted TrA x10 5? hold/instruction (review) Side Stepping 3 laps Hip flex x12 P Hip abd x12 P Alt [place]uly X12 P Squats x12 P Heel raises x12 P Paddles with TrA Level 1 X15 P -flex/ext, push/pull, abd/add, H abd/add Dumbbell Rolls 20 fwd/bwd ABDOMINALS x 10 ea. flexion, push/pull, sm. blue board N 100% Unloading with LG noodle and B UE support -bike 5? -abd/add 5? -hang 5? Gradual exit 3? . Provided today:. Access Code: [email or web address] URL: [email or web address] Date: 02/20/2022 Prepared by: Aleida Metzger Exercises Supine Figure 4 Piriformis Stretch - 1 x daily - 7 x weekly - 1 sets - 5 reps - 10 hold Hooklying Single Knee to Chest Stretch - 1 x daily - 7 x weekly - 1 sets - 10 reps - 5 hold Roller Massage Elongated IT Band Release - 1 x daily - 7 x weekly - 3 sets - 10 reps Standing Glute Med Mobilization with Small Ball on Wall - 1 x daily - 7 x weekly - 3 sets - 10 reps Handout given for progression of HEP this date. Patient verbalized and demo'd understanding of correct form and technique. Exercises given are listed below: ME (more content not included)... Normal [employer] PT Progress Noteon 2 PT Progress Note Therapy Diagnosis Assessed Other spondylosis with radiculopathy, lumbar region (721.3) (M47.26) Spinal stenosis, lumbar region, without neurogenic claudication (724.02) (M48.061) Spondylolisthesis at L4-L5 level (756.12) (M43.16) Plan Goals: Goals set and discussed today. 1. Independent HEP to allow for 50% reduction in max ADL C/C sx ( 02/13) 2-3wks 2. 0/10 night time sx to allow for uninterrupted sleep x1wk ( 06/13) 2-3wks 3. Survey score improvement from 28% to 20% (ANGELIQUE) 3-4wks 4. Strength increase to allow for improved ADL carry, stdg (from gr4- to gr4+ abdominals) 3-4wks 4. ROM increase to allow for improved ADL dressing lowers (from 50% to 75% SSBs) 3-4wks 5. Strength increase to allow for improved ADL stairs (from gr4 to gr4+ LLE myotome) 3-4wks, goal partially met Planned interventions include: aquatic therapy, cryotherapy, dry needling, education/instructio n, electrical stimulation, gait training, home program, hot pack, kinesiotaping, manual therapy, self care/home management, therapeutic exercises and IASTM/cupping. Frequency and duration: 2 time(s) a week, for 4 weeks, for 8 visits . total POC: 14. Potential to achieve rehab goals is fair: chronic syndrome Plan to continue with focus on progression of TrA activation, glute retraining, as well as continued manual therapy to decrease myofascial restriction and improve motor control and decrease radicular symptoms from trigger points in lumbar and hip musculature. Progress with POC, as tolerated. Monitor home program. Assessment Pt reassessed this date by supervising PT with improvements noted in [facility]mbar AROM as well as MMT in BLE's compared to eval. SHe continues to have functional deficits due to pain and radicular symptoms lingering in LLE, but responded well to addition of STM this date due to lingering myofascial restriction and trigger points throughout Left hip/pelvis musculature. Pt reported good understanding of all edu provided this date and updates to HEP emailed to patient. Response to treatment: decreased pain. Patient was able to complete today's treatment with some difficulty. Adult Risk Screening There are no spiritual/cultural practices/values/nee ds that are important to know Initial Fall Risk Screening: KAIA has not fallen in the last 6 months. KAIA does not have a fear of falling. She does not need assistance with sitting, standing or walking. Does not need assistance walking in her home. She does not need assistance in an unfamiliar setting. The patient is not using an assistive device. Pain Scale: On a scale of 0 to 10, the patient rates the pain at 3. Please identify location of pain: LB; L Buttock; LLE through to the knee; cramping calf. Living Will. Living Will: Living will on file. Patient Declined. Healthcare POA: Health care proxy on file. Patient Declined. Declaration of Mental Health Treatment: No mental health treatment on file. Patient Declined. Insurance Insurance reviewed Visit number: 8 POC: 12/18 Evaluating therapist Miguel Angel Horan PT. M47.36; M48.061; M43.16 Subjective Patient reports:. Pt notes she has been having basically the same amount of pain since starting therapy. Pt notes she was having a decent amount of pain but was noticing that it seemed to be linked to when she felt the need to have a bowel movement. Has been having a lot of cramps in her Left foot and calf, more than Right leg. Pt notes pain was keeping her more awake before therapy but not recently. Patient identified by name and date of . Home program performing as directed: Yes. Precautions: none. Fall Risk: none Objective Ortho Slump Test: LLE: (+) RLE: (-) MMT: LLE Hip Flex: 4-/5 Knee Ext: 4/5 Knee Flex: 4/5 Ankle DF: 4/5. ROM / Joint Mobility (Range of Motion in degrees) Lumbar: (Carroll = P! Denotes Pain with Movement) Extension: Active 90%. Flexion: Active WFL. Side Bend: R Active 75%, L Active 75%. Rotation: R Active 100%, L Active 100%. Neurological Right Myotomal Testing: L2 hip flexion normal, L3 knee extension normal, L4 ankle dorsiflexion, inversion normal, L5 great toe extension normal, S1 ankle plantar flexion and eversion normal Left Myotomal Testing: L2 hip flexion impaired 4, L3 knee extension impaired 4, L4 ankle dorsiflexion, inversion impaired 4, L5 great toe extension normal, S1 ankle plantar flexion and eversion impaired 4 Outcome Measures Modified Oswestry Low Back Pain Disability Index score: 28%-->36% Treatment Time in clinic started at 1020 am Time in clinic ended at 1105 am Total time in clinic is 45 minutes. Total timed code time is 40 minutes. Therapeutic exercise (14299): timed minutes 25, units 2 . Pt re-assessed for updated POC, updated/reviewed HEP, and discussed continued symptom management Piriformis 2x10 holds B/L (N) Hip Flexor stretch (A) Standing IT/QL stretch (A) SKTC (A) Not 02/20: Nustep 5' Standing hip ABD 2 x 10 Standi (more content not included)... Normal [facility] Therapy Re-eval Noteon 02-20 Therapy Re-eval Note Therapy Diagnosis Assessed 1. Other spondylosis with radiculopathy, lumbar region (721.3) (M47.26) 2. Spinal stenosis, lumbar region, without neurogenic claudication (724.02) (M48.061) 3. Spondylolisthesis at L4-L5 level (756.12) (M43.16) Plan Goals: Goals set and discussed today. 1. Independent HEP to allow for 50% reduction in max ADL C/C sx ( 02/13) 2-3wks 2. 0/10 night time sx to allow for uninterrupted sleep x1wk ( 06/13) 2-3wks 3. Survey score improvement from 28% to 20% (ANGELIQUE) 3-4wks 4. Strength increase to allow for improved ADL carry, stdg (from gr4- to gr4+ abdominals) 3-4wks 4. ROM increase to allow for improved ADL dressing lowers (from 50% to 75% SSBs) 3-4wks 5. Strength increase to allow for improved ADL stairs (from gr4 to gr4+ LLE myotome) 3-4wks, goal partially met Planned interventions include: aquatic therapy, cryotherapy, dry needling, education/instructio n, electrical stimulation, gait training, home program, hot pack, kinesiotaping, manual therapy, self care/home management, therapeutic exercises and IASTM/cupping. Frequency and duration: 2 time(s) a week, for 4 weeks, for 8 visits . total POC: 14. Potential to achieve rehab goals is fair: chronic syndrome Plan to continue with focus on progression of TrA activation, glute retraining, as well as continued manual therapy to decrease myofascial restriction and improve motor control and decrease radicular symptoms from trigger points in lumbar and hip musculature. Progress with POC, as tolerated. Monitor home program. Assessment Pt reassessed this date by supervising PT with improvements noted in LUmbar AROM as well as MMT in BLE's compared to eval. SHe continues to have functional deficits due to pain and radicular symptoms lingering in LLE, but responded well to addition of STM this date due to lingering myofascial restriction and trigger points throughout Left hip/pelvis musculature. Pt reported good understanding of all edu provided this date and updates to HEP emailed to patient. Response to treatment: decreased pain. Patient was able to complete today's treatment with some difficulty. Adult Risk Screening There are no spiritual/cultural practices/values/nee ds that are important to know Initial Fall Risk Screening: KAIA has not fallen in the last 6 months. KAIA does not have a fear of falling. She does not need assistance with sitting, standing or walking. Does not need assistance walking in her home. She does not need assistance in an unfamiliar setting. The patient is not using an assistive device. Pain Scale: On a scale of 0 to 10, the patient rates the pain at 3. Please identify location of pain: LB; L Buttock; LLE through to the knee; cramping calf. Living Will. Living Will: Living will on file. Patient Declined. Healthcare POA: Health care proxy on file. Patient Declined. Declaration of Mental Health Treatment: No mental health treatment on file. Patient Declined. Insurance Insurance reviewed Visit number: 8 POC: 12/18 Evaluating therapist Miguel Angel Horan PT. M47.36; M48.061; M43.16 Subjective Patient reports:. Pt notes she has been having basically the same amount of pain since starting therapy. Pt notes she was having a decent amount of pain but was noticing that it seemed to be linked to when she felt the need to have a bowel movement. Has been having a lot of cramps in her Left foot and calf, more than Right leg. Pt notes pain was keeping her more awake before therapy but not recently. Patient identified by name and date of . Home program performing as directed: Yes. Precautions: none. Fall Risk: none Objective Ortho Slump Test: LLE: (+) RLE: (-) MMT: LLE Hip Flex: 4-/5 Knee Ext: 4/5 Knee Flex: 4/5 Ankle DF: 4/5. ROM / Joint Mobility (Range of Motion in degrees) Lumbar: (Carroll = P! Denotes Pain with Movement) Extension: Active 90%. Flexion: Active WFL. Side Bend: R Active 75%, L Active 75%. Rotation: R Active 100%, L Active 100%. Neurological Right Myotomal Testing: L2 hip flexion normal, L3 knee extension normal, L4 ankle dorsiflexion, inversion normal, L5 great toe extension normal, S1 ankle plantar flexion and eversion normal Left Myotomal Testing: L2 hip flexion impaired 4, L3 knee extension impaired 4, L4 ankle dorsiflexion, inversion impaired 4, L5 great toe extension normal, S1 ankle plantar flexion and eversion impaired 4 Outcome Measures Modified Oswestry Low Back Pain Disability Index score: 28%-->36% Treatment Time in clinic started at 1020 am Time in clinic ended at 1105 am Total time in clinic is 45 minutes. Total timed code time is 40 minutes. Therapeutic exercise (62485): timed minutes 25, units 2 . Pt re-assessed for updated POC, updated/reviewed HEP, and discussed continued symptom management Piriformis 2x10 holds B/L (N) Hip Flexor stretch (A) Standing IT/QL stretch (A) SKTC (A) Not 02/20: Nustep 5' Standing hip ABD 2 x 10 (more content not included)... Normal [facility] PT Progress Noteon 2 PT Progress Note Therapy Diagnosis Assessed Other spondylosis with radiculopathy, lumbar region (721.3) (M47.26) Spinal stenosis, lumbar region, without neurogenic claudication (724.02) (M48.061) Spondylolisthesis at L4-L5 level (756.12) (M43.16) Plan Goals: Goals set and discussed today. 1. Independent HEP to allow for 50% reduction in max ADL C/C sx ( 02/13) 2-3wks 2. 0/10 night time sx to allow for uninterrupted sleep x1wk ( 06/13) 2-3wks 3. Survey score improvement from 28% to 20% (ANGELIQUE) 3-4wks 4. Strength increase to allow for improved ADL carry, stdg (from gr4- to gr4+ abdominals) 3-4wks 4. ROM increase to allow for improved ADL dressing lowers (from 50% to 75% SSBs) 3-4wks 5. Strength increase to allow for improved ADL stairs (from gr4 to gr4+ LLE myotome) 3-4wks Planned interventions include: aquatic therapy, cryotherapy, dry needling, education/instructio n, electrical stimulation, gait training, home program, hot pack, kinesiotaping, manual therapy, self care/home management, therapeutic exercises and IASTM/cupping. Frequency and duration: 2 time(s) a week, for 4 weeks, for 8 visits . x3 pool; final [address] [facility]. Potential to achieve rehab goals is fair: chronic syndrome Will continue to progress core and LE strength for improved function with home and work related tasks. Progress with POC, as tolerated. Assessment Patient needs cues for correct form and encouragement throughout PRE. Added hip IR d/t excessive ER in B LE; L >R. Cues to IR the hips during side steps d/t compensations. Good technique with pelvic tilt in supine. Continues with tightness to the R during LTR. Guard with transfers. Adult Risk Screening There are no spiritual/cultural practices/values/nee ds that are important to know Initial Fall Risk Screening: KAIA has not fallen in the last 6 months. KAIA does not have a fear of falling. She does not need assistance with sitting, standing or walking. Does not need assistance walking in her home. She does not need assistance in an unfamiliar setting. The patient is not using an assistive device. Please identify location of pain: LB; L Buttock; LLE through to the knee; cramping calf. Living Will. Living Will: Living will on file. Patient Declined. Healthcare POA: Health care proxy on file. Patient Declined. Declaration of Mental Health Treatment: No mental health treatment on file. Patient Declined. Insurance Insurance reviewed Visit number: 7 Evaluating therapist Miguel Angel Horan PT. M47.36; M48.061; M43.16 Subjective Patient reports:. Patient reports that her pain level is around 2 or 3/10 currently. States that she felt rough over the weekend. States that she feels very out of shape with doing the new exercises. States that she did HEP and just felt tired after with no exacerbation of pain. Patient identified by name and date of . Precautions: none. Fall Risk: none Treatment Time in clinic started at 1:18 am Time in clinic ended at 2:00 am Total time in clinic is 42 minutes. Total timed code time is 41 minutes. Therapeutic exercise (16840): timed minutes 41, units 3 . Nustep 5' Standing hip ABD 2 x 10 Standing hip Ext 2 x 10 (N) Heel raises 2 x 10 Mini squats 2 x 10 (N) Glute squeezes 2 x 10 Side steps 2 x 10 Supine hip ADD w/ playball TrA 2 x 10 (N) Posterior pelvic tilt 2 x 10 (N) LTR 2 x 10 Hip IR [place] 2 x 10 (N) . Aquatic Therapy (46628):. All exercises preformed in 70-75% unloading unless noted TrA x10 5? hold/instruction (review) Side Stepping 3 laps Hip flex x12 P Hip abd x12 P Alt march X12 P Squats x12 P Heel raises x12 P Paddles with TrA Level 1 X15 P -flex/ext, push/pull, abd/add, H abd/add Dumbbell Rolls 20 fwd/bwd ABDOMINALS x 10 ea. flexion, push/pull, sm. blue board N 100% Unloading with LG noodle and B UE support -bike 5? -abd/add 5? -hang 5? Gradual exit 3? . Provided today:. Handout given for progression of HEP this date. Patient verbalized and demo'd understanding of correct form and technique. Exercises given are listed below: [employer] Access Code [email or web address] Heel raises 2 x 10 (N) Glute squeezes 2 x 10 Side steps 2 x 10 (N) Supine hip ADD w/ playball TrA 2 x 10 (N) Posterior pelvic tilt 2 x 10 (N). 'Scores and Scales' Signatures Electronically signed by : Miracle Schmitz PNEUMATIC TUBE OPERATOR; Feb 13 2022 2:03PM EST (Author) Electronically signed by : Aleida Metzger PT; Feb 20 2022 9:20AM EST Normal [facility] PT Progress Noteon 2 PT Progress Note Therapy Diagnosis Assessed Other spondylosis with radiculopathy, lumbar region (721.3) (M47.26) Spinal stenosis, lumbar region, without neurogenic claudication (724.02) (M48.061) Spondylolisthesis at L4-L5 level (756.12) (M43.16) Plan Goals: Goals set and discussed today. 1. Independent HEP to allow for 50% reduction in max ADL C/C sx ( 02/13) 2-3wks 2. 0/10 night time sx to allow for uninterrupted sleep x1wk ( 2/7) 2-3wks 3. Survey score improvement from 28% to 20% (ANGELIQUE) 3-4wks 4. Strength increase to allow for improved ADL carry, stdg (from gr4- to gr4+ abdominals) 3-4wks 4. ROM increase to allow for improved ADL dressing lowers (from 50% to 75% SSBs) 3-4wks 5. Strength increase to allow for improved ADL stairs (from gr4 to gr4+ LLE myotome) 3-4wks Planned interventions include: aquatic therapy, cryotherapy, dry needling, education/instructio n, electrical stimulation, gait training, home program, hot pack, kinesiotaping, manual therapy, self care/home management, therapeutic exercises and IASTM/cupping. Frequency and duration: 2 time(s) a week, for 4 weeks, for 8 visits . x3 [place]; final 5 visits [address] [facility]. Potential to achieve rehab goals is fair: chronic syndrome Will continue to progress core and LE strength for improved function with home and work related tasks. Progress with POC, as tolerated. Assessment Focused on extension biased DLS. Observed excessive ER of the L LE during side steps and standing hip ext. Tightness with LTR to the L. Added posterior pelvic tilt d/t increased lordosis in the lumbar spine. Progressed HEP this date with handout given. Educated patient on posture and ways to reduce pain by modifying posture with ADL's. Adult Risk Screening There are no spiritual/cultural practices/values/nee ds that are important to know Initial Fall Risk Screening: KAIA has not fallen in the last 6 months. KAIA does not have a fear of falling. She does not need assistance with sitting, standing or walking. Does not need assistance walking in her home. She does not need assistance in an unfamiliar setting. The patient is not using an assistive device. Please identify location of pain: LB; L Buttock; LLE through to the knee; cramping calf. Living Will. Living Will: Living will on file. Patient Declined. Healthcare POA: Health care proxy on file. Patient Declined. Declaration of Mental Health Treatment: No mental health treatment on file. Patient Declined. Insurance Insurance reviewed Visit number: 5 Evaluating therapist Miguel Angel Horan PT. M47.36; M48.061; M43.16 Subjective Patient reports:. Patient reports that her pain levels are down this morning. [place] was walking and was ok. States that she sat and symptoms increased. 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 Notes that she has weakness in her legs also. Patient identified by name and date of . Precautions: none. Fall Risk: none Treatment Time in clinic started at 8:30 am Time in clinic ended at 9:13 am Total time in clinic is 43 minutes. Total timed code time is 40 minutes. Therapeutic exercise (13029): timed minutes 40, units 3 . Nustep 5' (N) Heel raises 2 x 10 (N) Glute squeezes 2 x 10 Side steps 2 x 10 (N) Supine hip ADD w/ playball TrA 2 x 10 (N) Posterior pelvic tilt 2 x 10 (N) LTR 2 x 10 (N) Hip IR (A) . Aquatic Therapy (73343):. All exercises preformed in 70-75% unloading unless noted TrA x10 5? hold/instruction (review) Side Stepping 3 laps Hip flex x12 P Hip abd x12 P Alt march X12 P Squats x12 P Heel raises x12 P Paddles with TrA Level 1 X15 P -flex/ext, push/pull, abd/add, H abd/add Dumbbell Rolls 20 fwd/bwd ABDOMINALS x 10 ea. flexion, push/pull, sm. blue board N 100% Unloading with LG noodle and B UE support -bike 5? -abd/add 5? -hang 5? Gradual exit 3? . Provided today:. Handout given for progression of HEP this date. Patient verbalized and demo'd understanding of correct form and technique. Exercises given are listed below: [employer] Access Code [email or web address] Heel raises 2 x 10 (N) Glute squeezes 2 x 10 Side steps 2 x 10 (N) Supine hip ADD w/ playball TrA 2 x 10 (N) Posterior pelvic tilt 2 x 10 (N). 'Scores and Scales' Signatures Electronically signed by : Miracle Schmitz PNEUMATIC TUBE OPERATOR; Feb 10 2022 9:29AM EST (Author) Electronically signed by : Aleida Metzger PT; Feb 10 2022 6:16PM EST Normal [facility] PT Progress Noteon 2 PT Progress Note Therapy Diagnosis Assessed Other spondylosis with radiculopathy, lumbar region (721.3) (M47.26) Spinal stenosis, lumbar region, without neurogenic claudication (724.02) (M48.061) Spondylolisthesis at L4-L5 level (756.12) (M43.16) Plan Goals: Goals set and discussed today. 1. Independent HEP to allow for 50% reduction in max ADL C/C sx ( 1010) 2-3wks 2. 0/10 night time sx to allow for uninterrupted sleep x1wk ( 06/13) 2-3wks 3. Survey score improvement from 28% to 20% (ANGELIQUE) 3-4wks 4. Strength increase to allow for improved ADL carry, stdg (from gr4- to gr4+ abdominals) 3-4wks 4. ROM increase to allow for improved ADL dressing lowers (from 50% to 75% SSBs) 3-4wks 5. Strength increase to allow for improved ADL stairs (from gr4 to gr4+ LLE myotome) 3-4wks Planned interventions include: aquatic therapy, cryotherapy, dry needling, education/instructio n, electrical stimulation, gait training, home program, hot pack, kinesiotaping, manual therapy, self care/home management, therapeutic exercises and IASTM/cupping. Frequency and duration: 2 time(s) a week, for 4 weeks, for 8 visits . x3 [place]; final 5 visits at [facility]. Potential to achieve rehab goals is fair: chronic syndrome Continue with core strength to improve standing, ambulation, sleeping. Progress with POC, as tolerated. Assessment Patient tolerated treatment without increased pain. Patient has Fair TrA and keeps intact with ther-ex. Patient needing one UE support with LE ther-ex and no UE support with 100% unloading. Patient has good form/understanding with ther-ex and keeps body in good alignment. Added abdominals ther-ex to program. Continue with core stability while performing dyn activity to decrease back pain. Adult Risk Screening There are no spiritual/cultural practices/values/nee ds that are important to know Initial Fall Risk Screening: KAIA has not fallen in the last 6 months. KAIA does not have a fear of falling. She does not need assistance with sitting, standing or walking. Does not need assistance walking in her home. She does not need assistance in an unfamiliar setting. The patient is not using an assistive device. Please identify location of pain: LB; L Buttock; LLE through to the knee; cramping calf. Living Will. Living Will: Living will on file. Patient Declined. Healthcare POA: Health care proxy on file. Patient Declined. Declaration of Mental Health Treatment: No mental health treatment on file. Patient Declined. Insurance Insurance reviewed Visit number: 4 Evaluating therapist Miguel Angel Horan PT. M47.36; M48.061; M43.16 Subjective Patient reports:. Patient reports no falls and no to all covid questions. Patient reports 3/10 low back region. Post aquatics states 0/10 low back pain. Patient to be transferred to [place] for out patient therapy. Precautions: none. Fall Risk: none Treatment Time in clinic started at 10:00 am Time in clinic ended at 10:45 am Total time in clinic is 45 minutes. Total timed code time is 41 minutes. Aquatic Therapy (72517): timed minutes 41, units 3 . All exercises preformed in 70-75% unloading unless noted TrA x10 5? hold/instruction (review) Side Stepping 3 laps Hip flex x12 P Hip abd x12 P Alt [place]uly X12 P Squats x12 P Heel raises x12 P Paddles with TrA Level 1 X15 P -flex/ext, push/pull, abd/add, H abd/add Dumbbell Rolls 20 fwd/bwd ABDOMINALS x 10 ea. flexion, push/pull, sm. blue board N 100% Unloading with LG noodle and B UE support -bike 5? -abd/add 5? -hang 5? Gradual exit 3? . 'Scores and Scales' Signatures Electronically signed by : Mel Jimenez PNEUMATIC TUBE OPERATOR; Feb 08 2022 10:45AM EST (Author) Electronically signed by : Saturnino Horan PT; Feb 08 2022 11:15AM EST Normal [facility] PT Progress Noteon 2 PT Progress Note Therapy Diagnosis Assessed Other spondylosis with radiculopathy, lumbar region (721.3) (M47.26) Spinal stenosis, lumbar region, without neurogenic claudication (724.02) (M48.061) Spondylolisthesis at L4-L5 level (756.12) (M43.16) Plan Goals: Goals set and discussed today. 1. Independent HEP to allow for 50% reduction in max ADL C/C sx ( 02/13) 2-3wks 2. 0/10 night time sx to allow for uninterrupted sleep x1wk ( 06/13) 2-3wks 3. Survey score improvement from 28% to 20% (ANGELIQUE) 3-4wks 4. Strength increase to allow for improved ADL carry, stdg (from gr4- to gr4+ abdominals) 3-4wks 4. ROM increase to allow for improved ADL dressing lowers (from 50% to 75% SSBs) 3-4wks 5. Strength increase to allow for improved ADL stairs (from gr4 to gr4+ LLE myotome) 3-4wks Planned interventions include: aquatic therapy, cryotherapy, dry needling, education/instructio n, electrical stimulation, gait training, home program, hot pack, kinesiotaping, manual therapy, self care/home management, therapeutic exercises and IASTM/cupping. Frequency and duration: 2 time(s) a week, for 4 weeks, for 8 visits . x3 [place]; final 5 visits at [facility]. 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 JW. Assessment Patient confirmed name and date of . Patient able to increase reps today while maintaining fair trunk stability. Able to add step taps and dumbbell rolls today with patient demonstrating good tolerance and fair trunk stability. Patient attempted to performed unloading with less UE support, unable to maintain good posture. Reduced pain at end of session, 07/14. Interdisciplinary Team Communication: Physical Therapy . Response to treatment: decreased pain. Adult Risk Screening There are no spiritual/cultural practices/values/nee ds that are important to know Initial Fall Risk Screening: KAIA has not fallen in the last 6 months. KAIA does not have a fear of falling. She does not need assistance with sitting, standing or walking. Does not need assistance walking in her home. She does not need assistance in an unfamiliar setting. The patient is not using an assistive device. Please identify location of pain: LB; L Buttock; LLE through to the knee; cramping calf. Living Will. Living Will: Living will on file. Patient Declined. Healthcare POA: Health care proxy on file. Patient Declined. Declaration of Mental Health Treatment: No mental health treatment on file. Patient Declined. Insurance Insurance reviewed Visit number: 3 Evaluating therapist Miguel Angel Horan PT. M47.36; M48.061; M43.16 Subjective Patient reports:. Patient reports back pain of 6/10, no LE Sx. States that yesterday she had LE Sx, stating that Sx where moderate. States that her pain is in her spine today, stating that it could be her arthritis today. Reports some muscle soreness in core. 3/10 back pain at end of session. Precautions: none. Fall Risk: none Treatment Time in clinic started at 9:15 Time in clinic ended at 10:00 Total time in clinic is 45 minutes. Total timed code time is 41 minutes. Aquatic Therapy (24015): timed minutes 43, units 3 . All exercises preformed in 70-75% unloading unless noted TrA x10 5? hold/instruction (review) Side Stepping 3 laps Hip flex x12 P Hip abd x12 P Alt july X12 P Squats x12 P Heel raises x12 P Paddles with TrA Level 1 X15 P -flex/ext, push/pull, abd/add, H abd/add Dumbbell Rolls 20 fwd/bwd 100% Unloading with LG noodle and B UE support -bike 5? -abd/add 5? -hang 5? Gradual exit 3? . 'Scores and Scales' Signatures Electronically signed by : Miracle Moreno PNEUMATIC TUBE OPERATOR; Feb 02 2022 9:57AM EST (Author) Electronically signed by : Saturnino Horan, PT; Feb 02 2022 10:03AM EST Electronically signed by : Aleida Metzger, PT; May 16 2022 12:47PM EST (Author) Normal [facility] PT Progress Noteon 2 PT Progress Note Therapy Diagnosis Assessed Other spondylosis with radiculopathy, lumbar region (721.3) (M47.26) Spinal stenosis, lumbar region, without neurogenic claudication (724.02) (M48.061) Spondylolisthesis at L4-L5 level (756.12) (M43.16) Plan Goals: Goals set and discussed today. 1. Independent HEP to allow for 50% reduction in max ADL C/C sx ( 10/10) 2-3wks 2. 0/10 night time sx to allow for uninterrupted sleep x1wk ( 06/13) 2-3wks 3. Survey score improvement from 28% to 20% (ANGELIQUE) 3-4wks 4. Strength increase to allow for improved ADL carry, stdg (from gr4- to gr4+ abdominals) 3-4wks 4. ROM increase to allow for improved ADL dressing lowers (from 50% to 75% SSBs) 3-4wks 5. Strength increase to allow for improved ADL stairs (from gr4 to gr4+ LLE myotome) 3-4wks Planned interventions include: aquatic therapy, cryotherapy, dry needling, education/instructio n, electrical stimulation, gait training, home program, hot pack, kinesiotaping, manual therapy, self care/home management, therapeutic exercises and IASTM/cupping. Frequency and duration: 2 time(s) a week, for 4 weeks, for 8 visits . x3 pool; final 5 visits at [facility]. Potential to achieve rehab goals is fair: chronic syndrome Plan to continue with core strengthening to allow for prolonged standing with ADLs. JW. Assessment Patient confirmed name and date of . Instruction of TrA contraction at beginning of session. good understanding with trace contraction upon palpation. Patient able to engage TrA with LE/UE exercises without c/o of increased pain. Fair trunk stability noted with aquatic exercises. Good posture maintained throughout session. Decreased pain with unloading. Interdisciplinary Team Communication: Physical Therapy . Response to treatment: decreased pain. Adult Risk Screening There are no spiritual/cultural practices/values/nee ds that are important to know Initial Fall Risk Screening: KAIA has not fallen in the last 6 months. KAIA does not have a fear of falling. She does not need assistance with sitting, standing or walking. Does not need assistance walking in her home. She does not need assistance in an unfamiliar setting. The patient is not using an assistive device. Pain Scale: On a scale of 0 to 10, the patient rates the pain at 3. Please identify location of pain: LB; L Buttock; LLE through to the knee; cramping calf. Living Will. Living Will: Living will on file. Patient Declined. Healthcare POA: Health care proxy on file. Patient Declined. Declaration of Mental Health Treatment: No mental health treatment on file. Patient Declined. Insurance Insurance reviewed Visit number: Evaluating therapist Miguel Angel Horan PT. M47.36; M48.061; M43.16 Subjective Patient reports:. Patient reports pain levels of 3/10, pain located in L anterior hip, and L low back. No LE Sx currently. Precautions: none. Fall Risk: none Treatment Time in clinic started at 10:45 Time in clinic ended at 11:30 Total time in clinic is 45 minutes. Total timed code time is 41 minutes. Aquatic Therapy (82012): timed minutes 43, units 3 . All exercises preformed in 70-75% unloading unless noted TrA x10 5? hold/instruction (review) Side Stepping 3 laps Hip flex x10 Hip abd x10 Alt [place]uly x10 Squats x10 Heel raises x10 Paddles with TrA Level 1 -flex/ext, push/pull, abd/add, H abd/add 100% Unloading with LG noodle and B UE support -bike 5? -abd/add 5? -hang 5? Gradual exit 3? . 'Scores and Scales' Signatures Electronically signed by : Miracle Moreno PTA; Jan 31 2022 11:28AM EST (Author) Electronically signed by : Saturnino Horan PT; Feb 01 2022 6:55AM EST Normal [facility] Absolute lymphocyte counton 01-28-2022 Lymphocytes Auto (Unsp spec) [#/Vol] 1.24 10*3/uL 0.83-4.51 [facility] Work Phone: Basophil percentageon 2021 Basophils/100 WBC (Bld) 0.5 % 0-1 [facility] Work Phone: Bilirubin [Mass/Vol] 0.40 mg/dL 0.20-1.00 [facility] Work Phone: Comment on above: For patients on eltr ombopag therapy, use of [place] TBIL is not recommended. Chloride [Moles/Vol] 109 mmol/L 98-107 [facility] Work Phone: Eosinophils/100 WBC (Bld) 2.5 % 0-5 [facility] Work Phone: Glucose [Mass/Vol] 102 mg/dL 74-106 [facility] Work Phone: Comment on above: Fasting Glucose resu lt from 100 to 125 mg/dL suggests IMPAIRED HOMEOSTASIS per A.D.A. criteria. Neutrophils (Bld) [#/Vol] 2.5 10*3/uL 2.0-7.7 [facility] Work Phone: [phone] Neutrophils/100 WBC (Bld) 57.4 % 47-70 [facility] Work Phone: [phone] Potassium [Moles/Vol] 3.9 mmol/L 3.5-5.1 [facility] Work Phone: [phone] Protein [Mass/Vol] 7.6 g/dL 6.4-8.2 [facility] Work Phone: Sodium [Moles/Vol] 143 mmol/L 136-145 [facility] Work Phone: [phone] WBC (Bld) [#/Vol] 4.3 10*3/uL 4.4-11.0 [facility] Work Phone: [phone] Blood erythrocytes count (nu mber/volume)on 01-28-2022 RBC (Bld) [#/Vol] 4.72 10*6/uL 4.2-5.4 [facility] Work Phone: [phone] Blood hemoglobin measurement (mass/volume)on 01-28-2022 Hemoglobin (Bld) [Mass/Vol] 13.8 g/dL 12.0-15.0 [facility] Work Phone: Blood lymphocytes/100 leukoc yteson 01-28-2022 Lymphocytes/100 WBC (Bld) 28.6 % 19-41 [facility] Work Phone: Blood monocytes/100 leukocyt eson 01-28-2022 Monocytes/100 WBC (Bld) 10.8 % 0-10 [facility] Work Phone: Blood platelet mean volumeon 01-28-2022 Platelet mean volume (Bld) [Entitic vol] 10.7 fL 6.2-12.0 [facility] Work Phone: Determination of erythrocyte mean corpuscular volume (MCV)on 01-28-2022 MCV (RBC) [Entitic vol] 94.3 fL 81-99 [facility] Work Phone: Hematocrit Auto (Bld) [Volum e fraction]on 01-28-2022 Hematocrit (Bld) [Volume fraction] 44.5 % 37-47 [facility] Work Phone: Laboratory - Chemistry and C hemistry - challengeon 01-28-2022 ALP [Catalytic activity/Vol] 80 U/L 45-117 [facility] Work Phone: [phone] ALT [Catalytic activity/Vol] 37 U/L 13-56 [facility] Work Phone: CO2 [Moles/Vol] 26.0 mmol/L 21.0-32.0 [facility] Work Phone: Globulin (S) [Mass/Vol] 3.8 g/dL 2.2-4.2 [facility] Work Phone: Lipase [Catalytic activity/Vol] 213 U/L 73-393 [facility] Work Phone: Urea nitrogen/Creatinine [Mass ratio] 15.9 mg/mg 10-20 [facility] Work Phone: Laboratory - Hematology and Cell countson 01-28-2022 Erythrocyte distribution width (RBC) [Entitic vol] 51.2 fL 35.1-43.9 [facility] Work Phone: Erythrocyte distribution width (RBC) [Ratio] 14.6 % 11.6-14.6 [facility] Work Phone: Immature granulocytes/100 WBC (Bld) 0.200 % 0.0-0.9 [facility] Work Phone: Comment on above: IG% - Immature Granu locytes (promyelocytes, myelocytes and metamyelocytes) > 1% indicates that a LEFT SHIFT is Present. MCH (RBC) [Entitic mass] 29.2 pg 27.0-32.0 [facility] Work Phone: Nucleated RBC/100 WBC (Bld) [Ratio] 0 % 0-5 [facility] Work Phone: MCHC Auto (RBC) [Mass/Vol]on 01-28-2022 MCHC (RBC) [Mass/Vol] 31.0 g/dL 32-36 [facility] Work Phone: No Panel Informationon 01-28 Estimated Creatinine Clearance Calc 53.69 ml/min [facility] Work Phone: Estimated GFR (MDRD) Amer 76 mL/min >60 [facility] Work Phone: Comment on above: GFR Calc Estimated GFR (MDRD) Non-Af Amer 63 mL/min >60 [facility] Work Phone: Comment on above: Non- GFR Calc Platelets bldon 01-28-2022 Platelets (Bld) [#/Vol] 196 10*3/uL 150-450 [facility] Work Phone: Serum or plasma albumin tim urement (mass/volume)on 01-28-2022 Albumin [Mass/Vol] 3.8 g/dL 3.2-5.0 [facility] Work Phone: Serum or plasma albumin/glob ulin mass ratioon 01-28-2022 Albumin/Globulin [Mass ratio] 1.0 {ratio} 0.9-2.4 [facility] Work Phone: Serum or plasma calcium tim urement (mass/volume)on 01-28-2022 Calcium [Mass/Vol] 9.4 mg/dL 8.5-10.1 [facility] Work Phone: Serum or plasma creatinine m easurement (mass/volume)on 01-28-2022 Creatinine [Mass/Vol] 0.94 mg/dL 0.55-1.02 [facility] Work Phone: Comment on above: The validity of the calculated GFR & GFRAA in patients over 70 years has not been determined. Clinical correlation is essential. Serum or plasma urea nitroge n measurement (mass/volume)on 01-28-2022 Urea nitrogen [Mass/Vol] 15 mg/dL 7-18 [facility] Work Phone: Thin prep Papanicolaou smear with manual screeningon 01-28-2022 Thin prep Papanicolaou smear with manual screening 29 U/L 15-37 [facility] Work Phone: Thin prep Papanicolaou smear with manual screening 8 5-15 [facility] Work Phone: PT Initial Evaluationon 01-06 PT Initial Evaluation Therapy Diagnosis Assessed Spinal stenosis, lumbar region, without neurogenic claudication (724.02) (M48.061) Other spondylosis with radiculopathy, lumbar region (721.3) (M47.26) Spondylolisthesis at L4-L5 level (756.12) (M43.16) Plan of Care Goals: Goals set and discussed today. 1. Independent HEP to allow for 50% reduction in max ADL C/C sx ( 10/10) 2-3wks 2. 0/10 night time sx to allow for uninterrupted sleep x1wk ( 06/13) 2-3wks 3. Survey score improvement from 28% to 20% (ANGELIQUE) 3-4wks 4. Strength increase to allow for improved ADL carry, stdg (from gr4- to gr4+ abdominals) 3-4wks 4. ROM increase to allow for improved ADL dressing lowers (from 50% to 75% SSBs) 3-4wks 5. Strength increase to allow for improved ADL stairs (from gr4 to gr4+ LLE myotome) 3-4wks Planned interventions include: aquatic therapy, cryotherapy, dry needling, education/instructio n, electrical stimulation, gait training, home program, hot pack, kinesiotaping, manual therapy, self care/home management, therapeutic exercises and IASTM/cupping. Frequency and duration: 2 time(s) a week, for 4 weeks, for 8 visits . x3 pool; final [address] [facility]. Potential to achieve rehab goals is fair: chronic syndrome Plan of care was developed with input and agreement by the patient. Assessment Present C/C sx of lumbar and LLE sx for 2.5 yrs. She did have an MRI, injections and previous PT. There is a future injection scheduled for 02/24/22. Physical findings include limited trunk ext and SBs' Will continue with pool unloading/core work and land flexion bias core work/ROM as nevaeh. STW can also be done PRN. Clinical Presentation: Stable and/or uncomplicated characteristics. Level of Complexity: low Problem List: activity limitations, ADLs/IADLs/self care skills, decreased functional level, decreased knowledge of HEP, decreased knowledge of precautions, gait/locomotion, pain, range of motion/joint mobility and strength. Reason For Visit Initial Evaluation . lumbar stenosis/spondylosis /spondylolisthesis. Referred by: Chay Ramírez DO Adult Risk Screening There are no spiritual/cultural practices/values/nee ds that are important to know Initial Fall Risk Screening: KAIA has not fallen in the last 6 months. KAIA does not have a fear of falling. She does not need assistance with sitting, standing or walking. Does not need assistance walking in her home. She does not need assistance in an unfamiliar setting. The patient is not using an assistive device. Pain Scale: On a scale of 0 to 10, the patient rates the pain at 10. Please identify location of pain: LB; L Buttock; LLE through to the knee; cramping calf. Living Will. Living Will: Living will on file. Patient Declined. Healthcare POA: Health care proxy on file. Patient Declined. Declaration of Mental Health Treatment: No mental health treatment on file. Patient Declined. Insurance Insurance reviewed Visit number: 1 Evaluating therapist Miguel Angel Horan PT. M47.36; M48.061; M43.16 Subjective Current Episode of Functional Impairment and/or Pain Date of onset: 07/26/19 Mechanism of Injury: insidious onset. Medical Screening: Reviewed medical history form with patient and medical screening assessed. Current Medical Management:. MRI; injections; PT (in [place]). Precautions: none. Fall Risk: none Functional Assessment Prior level of function: PAINFUL, DIFFICULT, OR ALTERED ADL (marked with an xx) sleep--XX sitting-- sit to standing transfers-- car transfers-- standing--XX walking--XX carrying--XX stairs--XX dressing lowers--XX driving-- dressing uppers-- reaching---- handling objects-- other-- . Patient stated goal(s) for treatment include: relieving pain , increasing strength , increasing mobility , walking with a normal gait , reducing symptoms , reducing/preventing future occurrences and learning preventative care measures . 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 Current Status: improving . injections. Patient Awareness: Patient is aware of her diagnosis and prognosis. Personal Factors That May Impact Care:. ID confirmed with B-day; speaks austrian No obtrusive barriers to learning identified/observed. Objective Ortho gr4- abdominals. ROM / Joint Mobility (Range of Motion in degrees) Lumbar: (Carroll = P! Denotes Pain with Movement) Extension: Active 50%. Flexion: Active WFL. Side Bend: R Active 50%, L Active 50%. Neurological Right Myotomal Testing: L2 hip flexion normal, L3 knee extension normal, L4 ankle dorsiflexion, inversion normal, L5 great toe extension normal, S1 ankle plantar flexion and eversion normal Left Myotomal Testing: L2 hip flexion impaired 4, L3 knee extension impaired 4, L4 ankle dorsiflexion, inversion impaired 4, L5 great toe extension normal, S1 ankle plantar flexion and eversion impaired 4 Outcome Measures Modified Oswestry Low Back Pain Disability Index score: 28% Treat (more content not included)... Normal [employer] COMPREHENSIVE PANELon 2021 ALBUMIN Canceled Normal [facility] Comment on above: Order Comment: TEST COMPREHENSIVE PANEL WAS CANCELLED, 11/15/2021 10:43 WAS UNABLE TO OBTAIN BLOOD 11/15/2021. Performed By: #### C #### [facility] [address] [place] [address] ALKALINE PHOSPHATASE Canceled Normal [facility] Comment on above: Order Comment: TEST COMPREHENSIVE PANEL WAS CANCELLED, 11/15/2021 10:43 WAS UNABLE TO OBTAIN BLOOD 11/15/2021. Performed By: #### C MP #### [place] [address] ALT Canceled Normal [facility] Comment on above: Order Comment: TEST COMPREHENSIVE PANEL WAS CANCELLED, 11/15/2021 10:43 WAS UNABLE TO OBTAIN BLOOD 11/15/2021. Result Comment: Samantha ents treated with Sulfasalazine may generate falsely decreased results for ALT. Performed By: #### C MP #### [place] [address] ANION GAP Canceled Normal [facility] Comment on above: Order Comment: TEST COMPREHENSIVE PANEL WAS CANCELLED, 11/15/2021 10:43 WAS UNABLE TO OBTAIN BLOOD 11/15/2021. Performed By: #### C MP #### [place] [address] AST Canceled Normal [facility] Comment on above: Order Comment: TEST COMPREHENSIVE PANEL WAS CANCELLED, 11/15/2021 10:43 WAS UNABLE TO OBTAIN BLOOD 11/15/2021. Performed By: #### C MP #### [place] [address] BICARBONATE Canceled Normal [facility] Comment on above: Order Comment: TEST COMPREHENSIVE PANEL WAS CANCELLED, 11/15/2021 10:43 WAS UNABLE TO OBTAIN BLOOD 11/15/2021. Performed By: #### C MP #### [place] [address] BILIRUBIN,TOTAL Canceled Normal [facility] Comment on above: Order Comment: TEST COMPREHENSIVE PANEL WAS CANCELLED, 11/15/2021 10:43 WAS UNABLE TO OBTAIN BLOOD 11/15/2021. Performed By: #### C MP #### [place] [id number] CALCIUM Canceled Normal [facility] Comment on above: Order Comment: TEST COMPREHENSIVE PANEL WAS CANCELLED, 11/15/2021 10:43 WAS UNABLE TO OBTAIN BLOOD 11/15/2021. Performed By: #### C MP #### [address] [place] [address] CHLORIDE Canceled Normal [facility] Comment on above: Order Comment: TEST COMPREHENSIVE PANEL WAS CANCELLED, 11/15/2021 10:43 WAS UNABLE TO OBTAIN BLOOD 11/15/2021. Performed By: #### C MP #### [address] [address] CREATININE Canceled Normal [facility] Comment on above: Order Comment: TEST COMPREHENSIVE PANEL WAS CANCELLED, 11/15/2021 10:43 WAS UNABLE TO OBTAIN BLOOD 11/15/2021. Performed By: #### C MP #### [address] [address] eGFR FEMALE Canceled Normal [facility] Comment on above: Order Comment: TEST COMPREHENSIVE PANEL WAS CANCELLED, 11/15/2021 10:43 WAS UNABLE TO OBTAIN BLOOD 11/15/2021. Result Comment: CALC ULATIONS OF ESTIMATED GFR ARE PERFORMED USING THE 2020 CKD-EPI STUDY REFIT EQUATION WITHOUT THE RACE VARIABLE FOR THE IDMS-TRACEABLE CREATININE METHODS. https://jasn.asnjournals.org/content/early/ASN.2020 959437 Performed By: #### C MP #### [place] [id number] eGFR MALE Canceled Normal [facility] Comment on above: Order Comment: TEST COMPREHENSIVE PANEL WAS CANCELLED, 11/15/2021 10:43 WAS UNABLE TO OBTAIN BLOOD 11/15/2021. Result Comment: CALC ULATIONS OF ESTIMATED GFR ARE PERFORMED USING THE 2020 CKD-EPI STUDY REFIT EQUATION WITHOUT THE RACE VARIABLE FOR THE IDMS-TRACEABLE CREATININE METHODS. https://jasn.asnjournals.org/content/earlyASN.2020 219636 Performed By: #### C MP #### [address] [address] GLUCOSE Canceled Normal [facility] Comment on above: Order Comment: TEST COMPREHENSIVE PANEL WAS CANCELLED, 11/15/2021 10:43 WAS UNABLE TO OBTAIN BLOOD 11/15/2021. Performed By: #### C MP #### [address] [address] POTASSIUM Canceled Normal [facility] Comment on above: Order Comment: TEST COMPREHENSIVE PANEL WAS CANCELLED, 11/15/2021 10:43 WAS UNABLE TO OBTAIN BLOOD 11/15/2021. Performed By: #### C MP #### [address] [address] SODIUM Canceled Normal [facility] Comment on above: Order Comment: TEST COMPREHENSIVE PANEL WAS CANCELLED, 11/15/2021 10:43 WAS UNABLE TO OBTAIN BLOOD 11/15/2021. Performed By: #### C MP #### [address] [address] TOTAL PROTEIN Canceled Normal [facility] Comment on above: Order Comment: TEST COMPREHENSIVE PANEL WAS CANCELLED, 11/15/2021 10:43 WAS UNABLE TO OBTAIN BLOOD 11/15/2021. Performed By: #### C MP #### [address] [address] UREA NITROGEN Canceled Normal [facility] Comment on above: Order Comment: TEST COMPREHENSIVE PANEL WAS CANCELLED, 11/15/2021 10:43 WAS UNABLE TO OBTAIN BLOOD 11/15/2021. Performed By: #### C MP #### [address] [address] HEMOGLOBIN A1Con 11-15-2021 EST.AVG.GLUCOSE Canceled Normal [facility] Comment on above: Order Comment: TEST HEMOGLOBIN A1C WAS CANCELLED, 11/15/2021 10:43 WAS UNABLE TO OBTAIN BLOOD 11/15/2021. Performed By: #### H BA1E #### [address] [address] HGB A1C Canceled Normal [facility] Comment on above: Order Comment: TEST HEMOGLOBIN A1C WAS CANCELLED, 11/15/2021 10:43 WAS UNABLE TO OBTAIN BLOOD 11/15/2021. Result Comment: Diag nosis of Diabetes-Adults Non-Diabetic: < or = 5.6% Increased risk for developing diabetes: 5.7-6.4% Diagnostic of diabetes: > or = 6.5% . Monitoring of Diabetes Age (y) Therapeutic Goal (%) Adults: >18 <7.0 Pediatrics: 13-18 <7.5 7-12 <8.0 0- 6 7.5-8.5 [employer]. Diabetes Care 33(S1), May 2009. Performed By: #### H BA1E #### [address] [address] LIPID PANEL (CORONARY RISK 2 )on 11-15-2021 CHOLESTEROL Canceled Normal [facility] Comment on above: Order Comment: TEST LIPID PANEL (CORONARY RISK 2) WAS CANCELLED, 11/15/2021 10:43 WAS UNABLE TO OBTAIN BLOOD 11/15/2021. Result Comment: . AGE DESIRABLE BORDERLINE HIGH HIGH 0-19 Y 0 - 169 170 - 199 >/= 200 20-24 Y 0 - 189 190 - 224 >/= 225 >24 Y 0 - 199 200 - 239 >/= 240 All ranges are based on fasting samples. Specific therapeutic targets will vary based on patient-specific cardiac risk. . Pediatric guidelines reference:Pediatrics 2011, 128(S5). Adult guidelines reference: NCEP ATPIII Guidelines, CHITO 2001, 258:2486-97 . Venipuncture immediately after or during the administration of Metamizole may lead to falsely low results. Testing should be performed immediately prior to Metamizole dosing. Performed By: #### L IPID #### [address] [address] CHOLESTEROL/HDL RATIO Canceled Normal [facility] Comment on above: Order Comment: TEST LIPID PANEL (CORONARY RISK 2) WAS CANCELLED, 11/15/2021 10:43 WAS UNABLE TO OBTAIN BLOOD 11/15/2021. Performed By: #### L IPID #### [address] [address] HDL-CHOLESTEROL Canceled Normal [facility] Comment on above: Order Comment: TEST LIPID PANEL (CORONARY RISK 2) WAS CANCELLED, 11/15/2021 10:43 WAS UNABLE TO OBTAIN BLOOD 11/15/2021. Result Comment: . AGE VERY LOW LOW NORMAL HIGH 0-19 Y < 35 < 40 40-45 ---- 20-24 Y ---- < 40 >45 ---- >24 Y ---- < 40 40-60 >60 . Performed By: #### L IPID #### [address] [address] LDL Canceled Normal [facility] Comment on above: Order Comment: TEST LIPID PANEL (CORONARY RISK 2) WAS CANCELLED, 11/15/2021 10:43 WAS UNABLE TO OBTAIN BLOOD 11/15/2021. Result Comment: . NEAR BORD AGE DESIRABLE OPTIMAL HIGH HIGH VERY HIGH 0-19 Y 0 - 109 --- 110-129 >/= 130 ---- 20-24 Y 0 - 119 --- 120-159 >/= 160 ---- >24 Y 0 - 99 100-129 130-159 160-189 >/=190 . Performed By: #### L IPID #### [address] [address] NON-HDL CHOLESTEROL Canceled Normal [facility] Comment on above: Order Comment: TEST LIPID PANEL (CORONARY RISK 2) WAS CANCELLED, 11/15/2021 10:43 WAS UNABLE TO OBTAIN BLOOD 11/15/2021. Result Comment: AGE DESIRABLE BORDERLINE HIGH HIGH VERY HIGH 0-19 Y 0 - 119 120 - 144 >/= 145 >/= 160 20-24 Y 0 - 149 150 - 189 >/= 190 ---- >24 Y 30 MG/DL ABOVE LDL CHOLESTEROL GOAL . Performed By: #### L IPID #### [address] [address] TRIGLYCERIDES Canceled Normal [facility] Comment on above: Order Comment: TEST LIPID PANEL (CORONARY RISK 2) WAS CANCELLED, 11/15/2021 10:43 WAS UNABLE TO OBTAIN BLOOD 11/15/2021. Result Comment: . AGE DESIRABLE BORDERLINE HIGH HIGH VERY HIGH 0 D-90 D 19 - 174 ---- ---- ---- 91 D- 9 Y 0 - 74 75 - 99 >/= 100 ---- 10-19 Y 0 - 89 90 - 129 >/= 130 ---- 20-24 Y 0 - 114 115 - 149 >/= 150 ---- >24 Y 0 - 149 150 - 199 200- 499 >/= 500 . Venipuncture immediately after or during the administration of Metamizole may lead to falsely low results. Testing should be performed immediately prior to Metamizole dosing. Performed By: #### L IPID #### [address] [address] VLDL Canceled Normal [facility] Comment on above: Order Comment: TEST LIPID PANEL (CORONARY RISK 2) WAS CANCELLED, 11/15/2021 10:43 WAS UNABLE TO OBTAIN BLOOD 11/15/2021. Performed By: #### L IPID #### [place] [id number] MAGNESIUMon 11-15-2021 MAGNESIUM Canceled Normal [facility] Comment on above: Order Comment: TEST MAGNESIUM WAS CANCELLED, 11/15/2021 10:43 WAS UNABLE TO OBTAIN BLOOD 11/15/2021. Performed By: #### M G #### [place] [id number] TSHon 11-15-2021 TSH Canceled Normal [facility] Comment on above: Order Comment: TEST TSH WAS CANCELLED, 11/15/2021 10:43 WAS UNABLE TO OBTAIN BLOOD 11/15/2021. Result Comment: TSH testing is performed using different testing methodology at [facility] than at other [facility]. Direct result comparisons should only be made within the same method. Performed By: #### T SH2 #### [place] [id number] VITAMIN B12on 11-15-2021 VITAMIN B12 Canceled Normal [facility] Comment on above: Order Comment: TEST VITAMIN B12 WAS CANCELLED, 11/15/2021 10:43 WAS UNABLE TO OBTAIN BLOOD 11/15/2021. Performed By: #### V TB12 #### [place] [id number] VITAMIN D, 25-HYDROXYon 11-04 VITAMIN D, 25-HYDROXY Canceled Normal [facility] Comment on above: Order Comment: TEST VITAMIN D, 25-HYDROXY WAS CANCELLED, 11/15/2021 10:43 WAS UNABLE TO OBTAIN BLOOD 11/15/2021. Performed By: #### V TDOH #### [facility] [address] [place] [address] HOLTER MONITon 07-30-2019 HOLTER MONIT This is a summary report. The complete report is available in the patient's medical record. If you cannot access the medical record, please contact the sending organization for a detailed fax or copy. ? Indication: palpitations ? 24 hour holter monitor 07/25/2019- 0 Hookup date: 07/25/2019. Scan date: 07/26/2019. Mean HR: 63 bpm Maximum HR: 99 bpm 9 hr 11 min on day 2 Minimum HR: 43 bpm at 3 hr 15 min on day 1 Ventricular prematurities - total: 17 Ventricular prematurities - pairs: 0 Ventricular prematurities - runs: 0 Supraventricular prematurities - total: 46 Supraventricular prematurities - pairs: 0 Supraventricular prematurities - runs: 2 Pauses greater than 2 sec: 0 Longest pause: 1.5 sec at 12 hrs : 10 min on day 1 Sinus rhythm with few PVCs, PACs, and baseline noise Normal [facility] Ambulatory XR Hip 2-3 Views Lefton XR Hip 2-3 Views Left Exam Date/Time: 01/07/2019 10:04 EDT Reason for Exam: left hip pain Report STUDY: XR Hip 2-3 Views Left; 01/07/2019 10:04 am INDICATION: left hip pain. COMPARISON: None. ACCESSION NUMBER(S): [id number] ORDERING CLINICIAN: Edgar Holbrook TECHNIQUE: AP and lateral views of the left hip were obtained. FINDINGS: There is no acute fracture or dislocation identified. Ijai-jc-xaetemje hypertrophic degenerative changes are seen in the left sacroiliac joint. Mild joint space narrowing and small marginal osteophytes are seen in the left hip. IMPRESSION: 1. No evidence of acute fracture or dislocation. 2. Degenerative changes, as described above. FINAL REPORT Dictated: 01/08/2019 9:23 am Antoine Perkins MD Signed (Electronic Signature): 01/08/2019 9:23 am Signed by: Antoine Perkins MD Technologist: SREEDHAR Normal [facility] Vital Signs Date Time Vital Sign Value Performing Clinician Facility 11-28-2024 12:42-0400 Body height 167.[address] Romeo Shankar MD Work Phone: [facility] 11-28-2024 12:42-0400 Body mass index (BMI) [Ratio] 33 kg/m2 Dr. Romeo Shankar MD Work Phone: [facility] 11-28-2024 12:42-0400 Body temperature 98.6 [degF] Dr. Romeo Shankar MD Work Phone: [facility] 11-28-2024 12:42-0400 Body weight 92.[address] Romeo Shankar MD Work Phone: [facility] 11-28-2024 12:42-0400 Diastolic blood pressure 70 mm[Hg] Dr. Romeo Shankar MD Work Phone: [facility] 11-28-2024 12:42-0400 Heart rate 54 /min Dr. Romeo Shankar MD Work Phone: [facility] 11-28-2024 12:42-0400 Respiratory rate 18 /min Dr. Romeo Shankar MD Work Phone: [facility] 11-28-2024 12:42-0400 SaO2% (BldA) [Mass fraction] 99 % Dr. Romeo Shankar MD Work Phone: [facility] 11-28-2024 12:42-0400 Systolic blood pressure 143 mm[Hg] Dr. Romeo Shankar MD Work Phone: [facility] 08-11-2024 15:09-0400 Body mass index (BMI) [Ratio] 34.38 kg/m2 Zenobia Resendez MD Work Phone: [facility] 08-11-2024 15:09-0400 Body weight 92.99 kg Zenobia Resendez MD Work Phone: [facility] 08-11-2024 15:09-0400 Diastolic blood pressure 70 mm[Hg] Zenobia Resendez MD Work Phone: [facility] 08-11-2024 15:09-0400 Systolic blood pressure 120 mm[Hg] Zenobia Resendez MD Work Phone: [facility] 07-24-2023 14:35-0400 Body height 165.1 cm Alyssa Schultz MD Work Phone: [facility] 06-01-2023 12:09-0500 Body height 167.6 cm Alyssa Schultz MD Work Phone: [facility] 06-01-2023 12:09-0500 Body mass index (BMI) [Ratio] 34.89 kg/m2 Alyssa Schultz MD Work Phone: [facility] 06-01-2023 12:09-0500 Body temperature 98.1 [degF] Alyssa Schultz MD Work Phone: [facility] 06-01-2023 12:09-0500 Body weight 98 kg Alyssa Schultz MD Work Phone: [facility] 06-01-2023 12:09-0500 Diastolic blood pressure 62 mm[Hg] Alyssa Schultz MD Work Phone: [facility] 06-01-2023 12:09-0500 Heart rate 58 /min Alyssa Schultz MD Work Phone: [facility] 06-01-2023 12:09-0500 Respiratory rate 18 /min Alyssa Schultz MD Work Phone: [facility] 06-01-2023 12:09-0500 SaO2% (BldA) [Mass fraction] 96 % Alyssa Schultz MD Work Phone: [facility] 06-01-2023 12:09-0500 Systolic blood pressure 128 mm[Hg] Alyssa Schultz MD Work Phone: [facility] 05-30-2023 18:41-0500 Diastolic blood pressure 70 mm[Hg] Dr. Edgar Holbrook Work Phone: [facility] 05-30-2023 18:41-0500 Heart rate 76 /min Dr. Edgar Holbrook Work Phone: [facility] 05-30-2023 18:41-0500 Respiratory rate 20 /min Dr. Edgar Holbrook Work Phone: [facility] 05-30-2023 18:41-0500 SaO2% (BldA) [Mass fraction] 97 % Dr. Edgar Holbrook Work Phone: [facility] 05-30-2023 18:41-0500 Systolic blood pressure 135 mm[Hg] Dr. Edgar Holbrook Work Phone: [facility] 05-30-2023 17:40-0500 Body temperature 98.5 [degF] Dr. Edgar Holbrook Work Phone: [facility] 05-30-2023 12:12-0500 Body height 167.[address] Edgar Holbrook Work Phone: [facility] 05-30-2023 12:12-0500 Body mass index (BMI) [Ratio] 34.4 kg/m2 Dr. Edgar Holbrook Work Phone: [facility] 05-30-2023 12:12-0500 Body weight 96.[address] Edgar Holbrook Work Phone: [facility] 05-30-2023 11:44-0500 Body mass index (BMI) [Ratio] 33.4 kg/m2 Dr. Edgar Holbrook Work Phone: [facility] 05-30-2023 11:44-0500 Body temperature 96.7 [degF] Dr. Edgar Holbrook Work Phone: [facility] 05-30-2023 11:44-0500 Body weight 93.[address] Edgar Holbrook Work Phone: [facility] 05-30-2023 11:44-0500 Diastolic blood pressure 80 mm[Hg] Dr. Edgar Holbrook Work Phone: [facility] 05-30-2023 11:44-0500 Heart rate 61 /min Dr. Edgar Holbrook Work Phone: [facility] 05-30-2023 11:44-0500 Respiratory rate 18 /min Dr. Edgar Holbrook Work Phone: [facility] 05-30-2023 11:44-0500 SaO2% (BldA) [Mass fraction] 97 % Dr. Edgar Holbrook Work Phone: [facility] 05-30-2023 11:44-0500 Systolic blood pressure 132 mm[Hg] Dr. Edgar Holbrook Work Phone: [facility] 06-15-2022 23:30-0500 Body temperature 97.81 [degF] Obed Hull MD Work Phone: [facility] 06-15-2022 23:30-0500 Diastolic blood pressure 70 mm[Hg] Obed Hull MD Work Phone: [facility] 06-15-2022 23:30-0500 Heart rate 80 /min Obed Hull MD Work Phone: [facility] 06-15-2022 23:30-0500 Respiratory rate 18 /min Obed Hull MD Work Phone: [facility] 06-15-2022 23:30-0500 SaO2% (BldA) [Mass fraction] 99 % Obed Hull MD Work Phone: [facility] 06-15-2022 23:30-0500 Systolic blood pressure 134 mm[Hg] Obed Hull MD Work Phone: [facility] 06-15-2022 20:22-0500 Body height 165.1 cm Obed Hull MD Work Phone: [facility] 01-28-2022 09:57-0400 Diastolic blood pressure 81 mm[Hg] [facility] Work Phone: 01-28-2022 09:57-0400 Heart rate 56 /min [facility] Work Phone: 01-28-2022 09:57-0400 Respiratory rate 16 /min [facility] Work Phone: 01-28-2022 09:57-0400 SaO2% (BldA) [Mass fraction] 98 % [facility] Work Phone: 01-28-2022 09:57-0400 Systolic blood pressure 107 mm[Hg] [facility] Work Phone: 01-28-2022 07:57-0400 Body height 165.1 cm [facility] Work Phone: 01-28-2022 07:57-0400 Body mass index (BMI) [Ratio] 35.4 kg/m2 [facility] Work Phone: 01-28-2022 07:57-0400 Body temperature 97.8 [degF] [facility] Work Phone: 01-28-2022 07:57-0400 Body weight 96.4 kg [facility] Work Phone: 12-13-2021 09:49-0400 Body weight 95.25 kg Piper Rahman [employer] Work Phone: [facility] 12-13-2021 09:49-0400 Diastolic blood pressure 72 mm[Hg] Piper Rahman [employer] Work Phone: [facility] 12-13-2021 09:49-0400 Systolic blood pressure 118 mm[Hg] Piper Rahman [employer] Work Phone: [facility] Encounters Encounter Date Encounter Type Care Provider Facility Start: 11-28-2024 End: 11-28-2024 Emergency department patient visit Dr. Romeo Shankar MD Work Phone: -Emergency Department Work Phone: Start: 10-01-2024 End: 12-01-2024 Follow-up encounter Zenobia Resendez MD Work Phone: OB/Gynecology Start: 09-26-2024 End: 09-26-2024 ambulatory ZENOBIA RESENDEZ Facility:[facility] Start: 09-23-2024 End: 09-23-2024 ambulatory ZENOBIA RESENDEZ Facility:[facility] Start: 08-18-2024 End: 08-18-[address] Romeo Shankar MD Work Phone: [facility] Work Phone: Start: 08-18-2024 End: 08-18-[address] Romeo Shankar MD -[facility] Work Phone: Start: 08-18-2024 End: 08-18-2024 ambulatory Romeo Shankar Facility:[facility] Start: 08-12-2024 End: 10-12-2024 Follow-up encounter Zenobia Resendez MD Work Phone: OB/Gynecology Start: 08-12-2024 End: 08-12-2024 Telephone encounter Zenobia Resendez MD Work Phone: OB/Gynecology Comment on above: Results Start: 08-11-2024 End: 08-11-2024 ambulatory ZENOBIA RESENDEZ Facility:[facility] Start: 08-11-2024 End: 08-11-2024 Patient encounter procedure Zenobia Resendez MD Work Phone: OB/Gynecology Comment on above: PMB (postmenopausal bleeding) (Primary Dx); Vaginal irritation; Encounter for screening for malignant neoplasm of cervix Start: 07-22-2024 End: 07-22-[address] Romeo Shankar MD Work Phone: [facility] Work Phone: Start: 07-22-2024 End: 07-22-[address] Romeo Shankar MD -Laboratory, Specimen Work Phone: Start: 07-22-2024 End: 07-22-[address] Romeo Shankar MD Work Phone: [facility] Work Phone: Start: 07-22-2024 End: 07-22-[address] Romeo Shankar MD -Radiology, [facility] Work Phone: Start: 07-22-2024 End: 07-22-2024 ambulatory Romeo Chi Raad Facility:[facility] Start: 06-05-2024 End: 06-05-[address] Romeo Shankar MD -Laboratory, Phy Office [address] [place] [address] Start: 06-05-2024 End: 06-05-2024 ambulatory Romeo Chi Raad Facility:[facility] Start: 02-14-2024 End: 02-14-2024 ambulatory ROMEO CHI RAAD [facility] Start: 01-04-2024 ambulatory Romeo Chi Raad Facility:[facility] Start: 01-04-2024 End: 01-04-2024 ambulatory Romeo Chi Raad Facility:[facility] Start: 12-31-2023 End: 12-31-2023 ambulatory Romeo Chi Raad Facility:[facility] Start: 12-25-2023 End: 12-25-2023 ambulatory Romeo Chi Raad Facility:[facility] Start: 08-09-2023 ambulatory ROMEO-CHI RAAD Facility:[facility] Start: 07-24-2023 ambulatory ALYSSA SCHULTZ Facility:[facility] Start: 07-24-2023 ambulatory ALYSSA SCHUTLZ Facility:[facility] Start: 07-24-2023 End: 07-24-2023 Subsequent hospital visit by physician Alyssa Schultz MD Work Phone: [facility] Comment on above: Arrived Start: 07-10-[address] Edgar Holbrook Work Phone: [facility]-Occupational Therapy Work Phone: Start: 07-05-2023 End: 07-05-[address] Edgar Holbrook Work Phone: [facility] Work Phone: Start: 07-05-2023 End: 07-05-[address] Edgar Holbrook Work Phone: [facility]-Laboratory, Phy Office 3rd Flr Start: 07-03-[address] Edgar Holbrook Work Phone: [facility]-Occupational Therapy Work Phone: Start: 06-29-2023 End: 06-29-[address] Edgar Holbrook Work Phone: [facility] Work Phone: Start: 06-29-2023 End: 06-29-[address] Edgar Holbrook Work Phone: [facility]-Outpatient Bone Densitometry Work Phone: Start: 06-04-2023 End: 06-04-[address] [facility] Start: 05-30-2023 End: 06-01-2023 Evaluation and management of inpatient SURGERY - NEURO CONSULT Facility:[facility] Start: 05-30-2023 End: 06-01-2023 Evaluation and management of inpatient Hussain Limon MD Work Phone: [id number] Comment on above: Brain bleed Start: 05-30-2023 End: 05-30-2023 Emergency department patient visit Dr. Edgar Holbrook Work Phone: [facility]-Emergency Department Work Phone: Start: 05-30-2023 End: 05-30-[address] Edgar Holbrook Work Phone: [facility] Work Phone: Start: 04-09-2023 End: 04-09-2023 Patient encounter procedure Martha Bailey OD Work Phone: Optometry Comment on above: Hyperopia of both ey es (Primary Dx); Regular astigmatism of both eyes; Presbyopia - Both Eyes Start: 11-17-2022 ambulatory Ms. Kait Oneil Facility:[id number] Start: 11-17-2022 Patient encounter procedure Edgar Holbrook Work Phone: [facility] Work Phone: Start: 10-20-2022 ambulatory Ms. Kait Bell Teach Facility:[id number] Start: 10-11-2022 ambulatory Ms. Kait [facility] Facility:[id number] Start: 10-11-2022 Patient encounter procedure Edgar Holbrook Work Phone: [facility] Work Phone: Start: 10-04-2022 ambulatory Ms. Kait Bell Clarice Facility:[id number] Start: 10-04-2022 Patient encounter procedure Edgar Holbrook Work Phone: [facility] Work Phone: Start: 09-22-[address] Edgar Holbrook Facility:[id number] Start: 09-18-[address] Edgar Holbrook Facility:[id number] Start: 09-18-2022 Patient encounter procedure Edgar Holbrook Work Phone: [facility] Work Phone: Start: 09-11-[address] Edgar Holbrook Facility:[id number] Start: 09-11-2022 Patient encounter procedure Edgar Holbrook Work Phone: [facility] Work Phone: Start: 09-08-[address] Edgar Holbrook Facility:[id number] Start: 09-08-2022 Patient encounter procedure Edgar Holbrook Work Phone: [facility] Work Phone: Start: 09-04-[address] Edgar Holbrook Facility:[id number] Start: 09-04-2022 Patient encounter procedure Edgar Holbrook Work Phone: [facility] Work Phone: Start: 09-01-2022 Patient encounter procedure Edgar Holbrook Work Phone: [facility] Work Phone: Start: 09-01-[address] Edgar Holbrook Facility:[id number] Start: 08-28-[address] Edgar Holbrook Facility:[id number] Start: 08-25-2022 Patient encounter procedure Edgar Holbrook Work Phone: [facility] Work Phone: Start: 08-25-2022 ambulatory Ms. Kait Oneil Facility:[id number] Start: 06-15-2022 End: 06-15-2022 Emergency department patient visit Obed Hull MD Work Phone: [facility] Emergency Department Start: 04-27-2022 Telephone encounter Compa Long DO Work Phone: Mammogram Comment on above: Results Start: 04-05-2022 Patient encounter procedure Edgar Holbrook Work Phone: [facility] Work Phone: Start: 04-05-[address] Chay Ramírez Facility:[id number] Start: 04-05-2022 PTFUADULT4, Provider : Miracle Schmitz, Status: Pen, Time: 9:15 AM Edgar Holbrook Work Phone: [facility] Work Phone: Start: 04-03-2022 Patient encounter procedure Edgar Holbrook Work Phone: [facility] Work Phone: Start: 03-27-[address] Edgar Holbrook Facility:[id number] Start: 03-27-2022 Patient encounter procedure Edgar Holbrook Work Phone: [facility] Work Phone: Start: 03-24-2022 Patient encounter procedure Edgar Holbrook Work Phone: [facility] Work Phone: Start: 03-24-[address] Chay Ramírez Facility:[id number] Start: 03-20-[address] Chay Ramírez Facility:[id number] Start: 03-07-2022 End: 03-07-2022 Patient encounter procedure Breonna Juarez PA-C Work Phone: [facility] Comment on above: Chalazion right uppe r eyelid (Primary Dx) Start: 03-06-[address] Chay Ramírez Facility:[id number] Start: 03-06-2022 Patient encounter procedure Edgar Holbrook Work Phone: [facility] Work Phone: Start: 03-03-[address] Chay Ramírez Facility:[id number] Start: 03-03-2022 Patient encounter procedure Edgar Holbrook Work Phone: [facility] Work Phone: Start: 03-03-2022 PTFUADULT4, Provider : Miracle Schmitz, Status: Pen, Time: 10:45 AM Edgar Holbrook Work Phone: [facility] Work Phone: Start: 02-27-[address] Chay Ramírez Facility:[id number] Start: 02-27-2022 Patient encounter procedure Edgar Holbrook Work Phone: [facility] Work Phone: Start: 02-24-[address] Chay Ramírez Facility:[id number] Start: 02-24-2022 Patient encounter procedure Edgar Holbrook Work Phone: [facility] Work Phone: Start: 02-20-[address] Chay Ramírez Facility:[id number] Start: 02-20-2022 Patient encounter procedure Edgar Holbrook Work Phone: [facility] Work Phone: Start: 02-13-2022 Patient encounter procedure Edgar Holbrook Work Phone: [facility] Work Phone: Start: 02-13-[address] Chay Ramírez Facility:[id number] Start: 02-10-[address] Chay Ramírez Facility:[id number] Start: 02-10-2022 PTFUADULT4, Provider : Miracle Schmitz, Status: Pen, Time: 8:30 AM Edgar Holbrook Work Phone: [facility] Work Phone: Start: 02-08-[address] 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 Edgar Holbrook Facility:[id number] Start: 02-02-2022 AQUATICFU4, Provider : Miracle Moreno, Status: Pen, Time: 9:15 AM Edgar Holbrook [facility] Work [facility]: Start: 02-02-2022 Patient encounter procedure Edgar Holbrook [facility]: [facility] Work Phone: Start: 01-31-[address] 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 Chay Ramírez Facility:[id number] Start: 01-12-2022 End: 01-12-2022 Patient encounter procedure Martha Bailey OD Work Phone: Optometry Comment on above: Hordeolum externum o f right upper eyelid (Primary Dx) Start: 12-22-2021 End: 12-22-2021 Patient encounter procedure Zenobia Resendez MD Work Phone: OB/Gynecology Comment on above: PMB (postmenopausal bleeding) (Primary Dx) Start: 12-13-2021 End: 12-13-2021 Patient encounter procedure Piper Rahman APRN.CNM Work Phone: OB/Gynecology Comment on above: Post-menopausal blee ding (Primary Dx); Abnormal uterine bleeding (AUB); Encounter for screening for malignant neoplasm of cervix Start: 07-08-2020 End: 07-08-2020 Orders Only Rupinder Houston Work Phone: [facility] Start: 07-25-2019 End: 07-26-2019 Patient encounter procedure EDGAR HOLBROOK [facility] Start: 07-25-2019 End: 07-25-2019 Subsequent hospital visit by physician Edgar Holbrook Work Phone: [facility] Comment on above: Palpitation Procedures Date Procedure Procedure Detail Performing Clinician Start: 11-28-2024 X-ray of knee, four or more views Dr. Romeo Shankar MD Work Phone: Start: 08-18-2024 MRI of lumbar spine Dr. Romeo Shankar MD Work Phone: Start: 07-22-2024 CT of abdomen and pe lvis without contrast Dr. Romeo Shankar MD Work Phone: Start: 07-22-2024 X-ray of lumbosacral spine Dr. Romeo Shankar MD Work Phone: Start: 07-22-[address] Romeo smith MD Work Phone: Start: 06-29-2023 Dual energy X-ray absorptiometry Dr. Edgar Holbrook Work Phone: Start: 06-01-2023 Echo tthrc r-t 2d w/wom-mode compl spec&colr d Bentley DE LA CRUZ Work Phone: Start: 06-01-2023 Bilirubin direct Bentley DE LA CRUZ Work Phone: Start: 06-01-2023 CBC AND ELECTRONIC DIFF Hernesto Montelongo MD Work Phone: Start: 06-01-2023 Complete blood count with white cell differential, automated Hernesto Montelongo MD Work Phone: Start: 05-31-2023 Ct abdomen & pelvis w/contrast material Hernesto Montelongo MD Work Phone: Start: 05-31-2023 Ct thorax w/contrast material Hernesto Montelongo MD Work Phone: Start: 05-31-2023 Ct head/brain w/o co ntrast material Julia A Susan DO Work Phone: Start: 05-31-2023 Assay of magnesium Ban Montelongo MD Work Phone: Start: 05-31-2023 CBC AND ELECTRONIC DIFF Hernesto Montelongo MD Work Phone: Start: 05-31-2023 Complete blood count with white cell differential, automated Hernesto Montelongo MD Work Phone: Start: 05-31-2023 Mri brain brain stem w/o w/contrast material Julia A Susan DO Work Phone: Start: 05-31-2023 Antibody screen ALYSSA SCHULTZ Comment on above: Performed By: #### X M #### [facility] ([facility]) [address] [place] [address] Start: 05-30-2023 Antibody screen Alyssa Schultz MD Work Phone: Start: 05-30-2023 ABORH TYPE RECONFIRMATION Jarrod Mistry MD Work Phone: Start: 05-30-2023 End: 05-30-2023 Blood typing serologic abo Julia A Yimi murillo DO Work Phone: Start: 05-30-2023 EXTRA MICRO Hernesto barnes MD Work Phone: Start: 05-30-2023 URINALYSIS REFLEX TO CULTURE Hernesto Montelongo MD Work Phone: Start: 05-30-2023 Urnls dip stick/tabl et reagent auto microscopy Hernesto Montelongo MD Work Phone: Start: 05-30-2023 Bilirubin direct Melind a A Susan DO Work Phone: Start: 05-30-2023 CBC AND ELECTRONIC DIFF Julia A Susan DO Work Phone: Start: 05-30-2023 CHM 7 - ED Julia A Susan DO Work Phone: Start: 05-30-2023 Complete blood count with white cell differential, automated Julia A Ussan DO Work Phone: Start: 05-30-2023 GOLD TOP TUBE Julia A Susan DO Work Phone: Start: 05-30-2023 LAVENDER TOP TUBE Maria T da A Susan DO Work Phone: Start: 05-30-2023 LT BLUE TOP TUBE Melind a A Susan DO Work Phone: Start: 05-30-2023 MINT GREEN TOP TUBE Nirali rio A Susan DO Work Phone: Start: 05-30-2023 RAINBOW DRAW Julia A Susan DO Work Phone: Start: 05-30-2023 Ecg routine ecg w/le ast 12 lds trcg only w/o i&r Julia A Susan DO Work Phone: Start: 05-30-2023 End: 05-30-2023 Ct angiography head w/contrast/noncontrast Julia A Susan DO Work Phone: Start: 05-30-2023 Glucose measurement, blood Other Other OT Start: 05-30-2023 Plain chest X-ray Dr. Chelsey Holbrook Work Phone: Start: 05-30-2023 CT of head without contrast Dr. Edgar Holbrook Work Phone: Start: 05-30-2023 Lipid 1996 panel - S lenny or Plasma Alyssa Schultz MD Work Phone: Start: 06-15-2022 Ct abdomen & pelvis w/contrast material Obed Hull MD Work Phone: Start: 06-15-2022 Complete blood count with white cell differential, automated Obed Hull MD Work Phone: Start: 06-15-2022 Comprehensive metabo lic panel Obed Hull MD Work Phone: Start: 06-15-2022 End: 06-15-2022 Urinalysis microscopic only Obed cortes MD Work Phone: Start: 06-15-2022 Urinalysis, reagent strip without microscopy Obed Hull MD Work Phone: Start: 01-28-2022 Computed tomography of abdomen and pelvis with intravenous contrast Start: 11-03-2019 Mammography Piper guy CROP DUSTER.CNM Work Phone: Start: 10-08-2017 Colonoscopy Piper guy CROP DUSTER.CNM Work Phone: Start: 09-28-2012 Lipid 1996 panel - S lenny or Plasma Martha Bailey OD Work Phone: Plan of Treatment Date Care Activity Detail Author Start: 07-10-2033 Urine microalbumin profile DTaP,Tdap,Td Vaccine (3 - Td or Tdap) [facility] Start: 05-30-2028 Lipid panel LIPID SCREENING [facility] Start: 04-23-2028 Tetanus vaccination [facility] Start: 04-23-2028 Urine microalbumin profile DTaP,Tdap,Td Vaccine (2 - Td or Tdap) [facility] Start: 06-01-2026 Diabetes Screening Diabetes Screenin g [facility] Start: 01-05-2025 Influenza vaccination Influenza Vacc ine (#1) [facility] Start: 11-28-2024 Plain X-ray of tibia and fibula Tibia & Fibula 2 Views [facility] Start: 11-28-2024 XR Tibia and Fibula 2 Views [facility] Start: 09-26-2024 End: 09-26-2024 Patient encounter procedure 09/26/2024 8:20 AM EDT Office Visit OB/Gynecology [address] [address] Zenobia Rodriguez MD [address] [place] [address] [facility] OB/Gynecology Comment on above: [facility] Start: 09-23-2024 End: 09-23-2024 ambulatory 09/23/2024 8:30 AM EDT Procedure OB/Gynecology [address] [place] [address] Remote, [place] [employer] [address] [place] [address] PMB (postmenopausal bleeding) [N95.0] OB/Gynecology Comment on above: PMB (postmenopausal bleeding) [N95.0] Start: 08-11-2024 End: 08-11-2025 US Pelvis PELVIC US [facility] Anc Imaging Routine PMB (postmenopausal bleeding) Expected: 08/11/2024, Expires: 08/11/2025 [facility] Work Phone: Comment on above: Expected: 08/11/2024 , Expires: 08/11/2025 Start: 07-04-2024 Covid-19 Vaccine ( season) Covid-19 Vaccine () [facility] Start: 06-01-2024 Thyroid stimulating hormone measurement TSH [facility] Start: 05-07-2024 Advance Directive Discussion Advance Directive Discussion [facility] Start: 07-30-2023 End: 06-01-2024 MR Brain WO and W contrast IV MRI BRAIN WITH AND WITHOUT CONTRAST Imaging Routine Brain bleed Expected: 07/30/2023, Expires: 06/01/2024 [facility] Comment on above: Expected: 07/30/2023 , Expires: 06/01/2024 Start: 07-24-2023 End: 07-24-2023 Patient encounter procedure [facility] Start: 01-05-2023 Covid-19 Vaccine ( season) Covid-19 Vaccine () [facility] Start: 01-05-2023 Influenza vaccination Influenza Vacc ine (#1) [facility] Start: 10-20-2022 FEI, Provider : Aleida Metzger, Status: Pen, Time: 8:00 AM PTRECHECKA, Provider: Aleida Metzger, Status: Pen, Time: 8:00 AM Rehab [facility] Work Phone: Start: 10-11-2022 PTFUADULT4, Provider : Jane Aaron, Status: Pen, Time: 8:30 AM PTFUADULT4, Provider: Jane Aaron, Status: Pen, Time: 8:30 AM [facility]hab [facility] Work Phone: Start: 09-22-2022 PTRECHECKA, Provider : Aleida Metzger, Status: Pen, Time: 8:15 AM PTRECHECKA, Provider: Aleida Metzger, Status: Pen, Time: 8:15 AM [facility] Work Phone: Start: 09-18-2022 PTFUADULT4, Provider : Miracle Schmitz, Status: Pen, Time: 1:15 PM PTFUADULT4, Provider: Miracle Schmitz, Status: Pen, Time: 1:15 PM [facility] Work Phone: Start: 09-15-2022 PTFUADULT4, Provider : Miracle Schmitz, Status: Pen, Time: 1:15 PM PTFUADULT4, Provider: Miracle Schmitz, Status: Pen, Time: 1:15 PM [facility] Work Phone: Start: 09-11-2022 PTFUADULT4, Provider : Nuha Haley, Status: Pen, Time: 1:15 PM PTFUADULT4, Provider: Nuha Haley, Status: Pen, Time: 1:15 PM [facility] Work Phone: Start: 09-08-2022 PTFUADULT4, Provider : Miracle Schmitz, Status: Pen, Time: 1:15 PM PTFUADULT4, Provider: Miracle Schmitz, Status: Pen, Time: 1:15 PM [facility] Work Phone: Start: 09-04-2022 PTFUADULT4, Provider : Miracle Schmitz, Status: Pen, Time: 1:15 PM PTFUADULT4, Provider: Miracle Schmitz, Status: Pen, Time: 1:15 PM [facility] Work Phone: Start: 09-01-2022 PTFUADULT4, Provider : Miracle Schmitz, Status: Pen, Time: 3:30 PM PTFUADULT4, Provider: Miracle Schmitz, Status: Pen, Time: 3:30 PM [facility] Work Phone: Start: 09-01-2022 PTFUADULT4, Provider : Miracle Schmitz, Status: Pen, Time: 10:45 AM PTFUADULT4, Provider: Miracle Schmitz, Status: Pen, Time: 10:45 AM [facility] Work Phone: Start: 08-28-2022 PTFUADULT4, Provider : Miracle Schmitz, Status: Pen, Time: 2:00 PM PTFUADULT4, Provider: Miracle Schmitz, Status: Pen, Time: 2:00 PM [facility] Work Phone: Start: 05-07-2022 ADVANCE DIRECTIVE DISCUSSION ADVANCE DIRECTIVE DISCUSSION [facility] Start: 05-07-2022 DEPRESSION ASSESSMENT DEPRESSION ASS ESSMENT [facility] Start: 04-05-2022 PTFUADULT4, Provider : Miracle Schmitz, Status: Pen, Time: 9:15 AM PTFUADULT4, Provider: Miracle Schmitz, Status: Pen, Time: 9:15 AM [facility] Start: 04-03-2022 PTFUADULT4, Provider : Miracle Schmitz, Status: Pen, Time: 9:15 AM PTFUADULT4, Provider: Miracle Schmitz, Status: Pen, Time: 9:15 AM [facility] Work Phone: Start: 03-27-2022 PTFUADULT4, Provider : Miracle Schmitz, Status: Pen, Time: 9:15 AM PTFUADULT4, Provider: Miracle Schmitz, Status: Pen, Time: 9:15 AM [facility] Work Phone: Start: 03-24-2022 PTFUADULT4, Provider : Miracle Schmitz, Status: Pen, Time: 9:15 AM PTFUADULT4, Provider: Miracle Schmitz, Status: Pen, Time: 9:15 AM [facility] [place] Work Phone: Start: 03-20-2022 PTRECHECKA, Provider : Aleida Metzger, Status: Pen, Time: 10:45 AM PTRECHECKA, Provider: Aelida Metzger, Status: Pen, Time: 10:45 AM [facility] [place] Work Phone: Start: 03-17-2022 PTFUADULT4, Provider : Miracle Schmitz, Status: Pen, Time: 9:15 AM PTFUADULT4, Provider: Miracle Schmitz, Status: Pen, Time: 9:15 AM [facility] Work Phone: Start: 03-13-2022 PTFUADULT4, Provider : Miracle Schmitz, Status: Pen, Time: 10:45 AM PTFUADULT4, Provider: Miracle Schmitz, Status: Pen, Time: 10:45 AM [facility] Work Phone: Start: 03-10-2022 PTFUADULT4, Provider : Miracle Schmitz, Status: Pen, Time: 8:30 AM PTFUADULT4, Provider: Miracle Schmitz, Status: Pen, Time: 8:30 AM Rehab [facility] Work Phone: Start: 03-06-2022 PTFUADULT4, Provider : Miracle Schmitz, Status: Pen, Time: 10:45 AM PTFUADULT4, Provider: Miracle Schmitz, Status: Pen, Time: 10:45 AM [facility] Work [facility]: Start: 03-03-2022 PTFUADULT4, Provider : Miracle Schmitz, Status: Pen, Time: 10:45 AM PTFUADULT4, Provider: Miracle Schmitz, Status: Pen, Time: 10:45 AM [facility] Work Phone: Start: 02-27-2022 PTFUADULT4, Provider : Miracle Schmitz, Status: Pen, Time: 10:00 AM PTFUADULT4, Provider: Miracle Schmitz, Status: Pen, Time: 10:00 AM [facility] Work Phone: Start: 02-24-2022 PTFUADULT4, Provider : Miracle Schmitz, Status: Pen, Time: 8:30 AM PTFUADULT4, Provider: Miracle Schmitz, Status: Pen, Time: 8:30 AM [facility] Work Phone: Start: 02-20-2022 PTRECHECKA, Provider : Aleida Metzger, Status: Pen, Time: 10:15 AM PTRECHECKA, Provider: Aleida Metzger, Status: Pen, Time: 10:15 AM Rehab [facility] Work Phone: Start: 02-17-2022 PTFUADULT4, Provider : Jane Aaron, Status: Pen, Time: 2:00 PM PTFUADULT4, Provider: Jane Aaron, Status: Pen, Time: 2:00 PM [facility] Work Phone: Start: 02-17-2022 PTFUADULT4, Provider : Miracle Schmitz, Status: Pen, Time: 8:30 AM PTFUADULT4, Provider: Miracle Schmitz, Status: Pen, Time: 8:30 AM [facility] Work Phone: Start: 02-13-2022 PTFUADULT4, Provider : Miracle Schmitz, Status: Pen, Time: 1:15 PM PTFUADULT4, Provider: Miracle Schmitz, Status: Pen, Time: 1:15 PM [facility] Work Phone: Start: 02-10-2022 PTFUADULT4, Provider : Miracle Schmitz, Status: Pen, Time: 8:30 AM PTFUADULT4, Provider: Miracle Schmitz, Status: Pen, Time: 8:30 AM [facility] Work Phone: Start: 02-08-2022 AQUATICFU4, Provider : Mel Jimenez, Status: Pen, Time: 10:00 AM AQUATICFU4, Provider: Mel Jimenez, Status: Pen, Time: 10:00 AM [facility] Work Phone: Start: 02-02-2022 AQUATICFU4, Provider : Miracle Moreno, Status: Pen, Time: 9:15 AM AQUATICFU4, Provider: Miracle Moreno, Status: Pen, Time: 9:15 AM [facility] Work Phone: Start: 01-31-2022 AQUATICFU4, Provider : Miracle Moreno, Status: Pen, Time: 10:45 AM AQUATICFU4, Provider: Miracle Moreno, Status: Pen, Time: 10:45 AM [facility] Work Phone: Start: 01-05-2022 Influenza vaccination INFLUENZA [...] 2021 Bone Density Screening Bone Density Screening [facility] Start: 2021 Pneumococcal vaccination [facility] Start: 2021 Pneumococcal Vaccine : 65+ (1 - PCV) Pneumococcal Vaccine: 65+ (1 - PCV) [facility] Start: 2021 PNEUMOCOCCAL: 65+ (1 - PCV) PNEUMOCOCCAL: 65+ (1 - PCV) [facility] Start: 2021 Screening for osteoporosis Bone Density Screening [facility] Start: 06-07-2021 Medicare Annual Well ness Visit Medicare Annual Wellness Visit [facility] Start: 05-07-2021 DEPRESSION ASSESSMENT DEPRESSION ASS ESSMENT [facility] Start: 04-25-2021 COVID-19 VACCINE (3 - Booster for Maikel series) COVID-19 VACCINE (3 - Booster for Maikel series) [facility] Start: 11-02-2020 Mammography [facility] Start: 11-02-2020 Screening for malign ant neoplasm of breast Mammogram Screening [facility] Start: 01-06-2020 Influenza vaccinatio n given Sequential Influenza Vaccine (#1) [facility] Start: 10-08-2018 Colonoscopy COLONOSCOPY [facility] Start: 10-08-2018 COLORECTAL CANCER SCREENING COLORECTAL CANCER SCREENING [facility] Start: 10-08-2018 Screening for malign ant neoplasm of colon [facility] Start: 09-28-2017 Lipid 1996 panel - S lenny or Plasma Lipid Screening [facility] Start: 09-28-2017 LIPID SCREEN LIPID SCREEN [facility] Start: 2016 RSV Vaccine (1 - 1-d ose 60+ series) RSV Vaccine (1 - 1-dose 60+ series) [facility] Start: 09-29-2015 DIABETES SCREEN DIABETES SCREEN [facility] Start: 09-29-2015 Diabetes Screening Diabetes Screenin g [facility] Start: 2006 Administration of he rpes zoster vaccine Zoster Vaccines (1 of 2) [facility] Start: 2006 Screening for malign ant neoplasm of colon [facility] Start: 2006 SHINGRIX VACCINE (1 of 2) SHINGRIX VACCINE (1 of 2) [facility] Start: 2001 COLOGUARD (FIT-DNA) COLOGUARD (FIT-D NA) [facility] Start: [address] COLONOGRAPHY [facility] Start: 2001 FECAL OCCULT BLOOD FECAL OCCULT BLOO D [facility] Start: 2001 Screening for malign ant neoplasm of colon [facility] Start: 2001 SIGMOIDOSCOPY SIGMOIDOSCOPY [facility] Start: 1996 Lipid panel LIPID SCREENING [facility] Start: 1996 Screening for malign ant neoplasm of breast MAMMOGRAM SCREENING DISCUSSION [facility] Start: 1977 Screening for malign ant neoplasm of cervix CERVICAL CANCER SCREENING DISCUSSION [facility] Start: 1975 Urine microalbumin profile DTAP,TDAP,TD (1 - Tdap) [facility] Start: 1974 Anxiety Screening Anxiety Screening [facility] Start: 1974 Depression Screening Depression Scre ening [facility] Start: 1974 Hepatitis C antibody , confirmatory test Hepatitis C Screening [facility] Start: 1974 HEPATITIS C SCREENING HEPATITIS C [facility] Start: 1974 Hepatitis C screening Hepatitis C [facility] Start: 1974 HIV SCREENING HIV SCREENING [facility] Start: 1972 COVID-19 Vaccine (1 of 2) COVID-19 Vaccine (1 of 2) [facility] Start: 1971 HIV screening HIV Screening [facility] Start: 1968 Adolescent depressio n screening assessment [facility] Start: 1959 History and physical examination, annual for health maintenance Wellness Visit [facility] Start: 1956 Hepatitis C antibody , confirmatory test Hepatitis C Screening [facility] Start: 1956 Hepatitis C screening HEPATITI S C VIRUS SCREENING [facility] Start: 1956 Screening for malign ant neoplasm of cervix Pap Smear [facility] Start: 1956 Screening for malign ant neoplasm of colon Colorectal Cancer Screening: Colonoscopy [facility] Start: 1956 Screening for osteoporosis DEXA SCAN DISCUSSION [facility] Start: 1956 Screening mammography [facility]amm[facility] End: 07-25-2019 24 Hour ECG Holter monitor - 24 hour Cardiac Services Routine Palpitation Once for 1 Occurrences starting 07/25/2019 until 07/25/2019 [facility] Comment on above: Once for 1 Occurrenc es starting 07/25/2019 until 07/25/2019 BACTERIAL VAGINOSIS NAAT BACTERI AL VAGINOSIS NAAT Lab Routine Vaginal irritation 08/11/2024 3:43 PM EDT [facility] KATHLEEN/TRICHOMONAS NAAT KATHLEEN /TRICHOMONAS NAAT Lab Routine Vaginal irritation 08/11/2024 3:43 PM EDT [facility] Endometrial bx w/wo endocervix bx w/o dilat spx ENDOMETRIAL BIOPSY Procedures Routine Abnormal uterine bleeding (AUB) Ordered: 12/13/2021 [facility] Work Phone: Comment on above: Ordered: 12/13/2021 Endometrial bx w/wo endocervix bx w/o dilat spx ENDOMETRIAL BIOPSY Procedures Routine PMB (postmenopausal bleeding) Ordered: 08/11/2024 [facility] Comment on above: Ordered: 08/11/2024 End: 07-24-2023 MR Brain WO contrast [facility] Work Phone: Comment on above: 1 Occurrences starti ng 07/24/2023 until 07/24/2023 PAP FLUID CERVICAL SCREENING PAP FLUID CERVICAL SCREENING Lab Routine Encounter for screening for malignant neoplasm of cervix 12/13/2021 10:51 AM EDT [facility] Work Phone: PAP TEST PAP TEST Lab Rou gideon Encounter for screening for malignant neoplasm of cervix PMB (postmenopausal bleeding) 08/11/2024 3:43 PM EDT [facility] Patient Education Abdominal Pain HIDA Scan [facility] Work Phone: Patient referral [facility] Work Phone: PELVIC US WHI PELVIC US WHI An c Imaging Routine Abnormal uterine bleeding (AUB) Ordered: 12/13/2021 [facility] Work Phone: Comment on above: Ordered: 12/13/2021 End: 05-30-2023 Standard ECG ECG ECG STAT One Time for 1 Occurrences starting 05/30/2023 until 05/30/2023 [facility] Comment on above: One Time for 1 Occur rences starting 05/30/2023 until 05/30/2023 SURGICAL PATHOLOGY SURGICAL PATH OLOGY Lab Routine Abnormal uterine bleeding (AUB) 12/13/2021 10:50 AM EDT [facility] Work Phone: Throat culture CULTURE THROAT Microbiology Routine 06/15/2022 9:06 PM [facility] Immunizations Immunization Date Immunization Notes Care Provider Fa cili 01-04-2024 influenza virus vaccine, unspecified formulation Zenobia Resendez MD Work Phone: [facility] 02-06-2022 influenza virus vaccine, unspecified formulation Martha Bailey OD Work Phone: [facility] Payers Date Payer Category Payer Self-pay [id number] 2021 [facility] D[facility] SUPPLEMENT [id number] 2021 Medicare [id number]. [id number] 2021 Medicare [id number] 2021 Medicare [id number] 2017 Private Health Insurance [employer] [address] [place] [address] [id number]. [id number] 2017 Unknown [id number]. 1.13.159. 2.7.3.248838.315 2015 Unknown [id number] 2015 Unknown MMO MED MUTUAL S UPERMED PPO [id number] 2015-Present [id number]. [id number] 2015 Unknown MMO MED MUTUAL S UPERMED PPO [id number] 2015-Present [id number] 1.2.840.240802.1.13.385. 2.7.3.524837.315 1956 Unknown [id number] 2.16840.1.164154.3.579. 2.3 1956 Unknown [id number] 2.840.1.347823.3.579. 2.1068 1956 Unknown [id number] 2.16840.1.388939.3.579. 2.1068 1956 Unknown [id number] 2.16840.1.897670.3.579. 2.1068 1956 Unknown [id number] 2.16840.1.032654.3.579. 2.1068 1956 Unknown [id number] 2.16840.1.893501.3.579. 2.1068 1956 Unknown [id number] 2.16.840.1.973636.3.579. 2.1068 1956 Unknown [id number] 2.16.840.1.323590.3.579. 2.1068 1956 Unknown [id number] 2.16.840.1.944636.3.579. 2.1068 1956 Unknown [id number] 2.16.840.1.497814.3.579. 2.1068 1956 Unknown [id number] 2.16.840.1.621463.3.579. 2.1068 1956 Unknown [id number] 2.16.840.1.296066.3.579. 2.1068 1956 Unknown [id number] 2.16.840.1.120004.3.579. 2.1068 1956 Unknown [id number] 2.16.840.1.242935.3.579. 2.1068 1956 Unknown [id number] 2.16.840.1.405073.3.579. 2.1068 1956 Unknown [id number] 2.16.840.1.063319.3.579. 2.1068 1956 Unknown [id number] 2.16.840.1.429091.3.579. 2.1068 1956 Unknown [id number] 2.16.840.1.112288.3.579. 2.1068 1956 Unknown [id number] 2.16.840.1.492744.3.579. 2.1068 1956 Unknown [id number] 2.16.840.1.667783.3.579. 2.1068 1956 Unknown [id number] 2.16.840.1.706300.3.579. 2.1068 1956 Unknown [id number] 2.16.840.1.440601.3.579. 2.1069 1956 Unknown [id number] 2.16.840.1.272883.3.579. 2.1068 1956 Unknown [id number] 2.16.840.1.863879.3.579. 2.1069 1956 Unknown [id number] 2.16.840.1.339272.3.579. 2.1068 1956 Unknown [id number] 2.16.840.1.134493.3.579. 2.1068 1956 Unknown [id number] 2.16.840.1.900433.3.579. 2.1068 1956 Unknown [id number] 2.16.840.1.199623.3.579. 2.1068 1956 Unknown [id number] 2.16.840.1.360020.3.579. 2.594 1956 Unknown [id number] 2.16.840.1.080017.3.579. 2.594 1956 Unknown [id number] 2.16.840.1.341479.3.579. 2.594 1956 Unknown [id number] 2.16.840.1.355192.3.579. 2.594 1956 Unknown [id number] 2.16.840.1.651095.3.579. 2.651 Unknown [id number] 2.16.840.1.780619.3.579. 2.462 Unknown [id number] 2.16.840.1.442939.3.579. 2.462 Unknown [id number] 2.16.840.1.132875.3.579. 2.462 Unknown [id number] 2.16.840.1.515210.3.579. 2.462 Unknown [id number] 2.16.840.1.058073.3.579. 2.462 Unknown [id number] 2.16.840.1.458316.3.579. 2.462 Unknown [id number] 2.16.840.1.078913.3.579. 2.462 Unknown [id number] 2.16.840.1.322841.3.579. 2.462 Unknown [id number] 2.16.840.1.621398.3.579. 2.462 Social History Date Type Detail Facility Start: 10-22-2015 End: 12-13-2021 Tobacco smoking status NHIS Never smoker [facility] Start: 10-22-2015 End: 05-14-2023 Alcohol intake Current non-drinker of alcohol (finding) [facility] Start: 1955 Sex Assigned At Not on file [facility] Start: 12-13-2021 End: 06-15-2022 Tobacco use and exposure Smokeless tobacco non-user [facility] Start: 1955 Sex Assigned At Female [facility] Start: 12-03-2021 End: 06-15-2022 Exposure to SARS-CoV-2 (event) Not sure [facility] Start: 01-28-2022 End: 06-22-2023 Tobacco smoking status TNIS Unknown if ever smoked [facility] Start: 05-11-2020 Non-smoker [facility] Start: 06-15-2022 Alcohol intake Lifetime non-d ko (finding) [facility] Start: 04-09-2023 End: 05-14-2023 History of Social function [facility] Start: 04-09-2023 End: 05-14-2023 Tobacco use panel [facility] National Score (1-10 0), lower number is lower risk 47 [facility] Start: 06-17-2019 Gender identity Identifies as female gender (finding) [facility] Start: 01-24-2022 Sexual orientation Choose not to dis close [facility] Start: 05-31-2023 End: 07-24-2023 Alcoholic beverage intake Current drinker of alcohol (finding) [facility] Start: 07-31-2024 End: 08-22-2024 Sex Female (finding) [facility] Medical Equipment Procedure Code Equipment Code Equipment Origin al Text Equipment Identifier Dates ORIF, fracture, wrist 2.4MM CORTEX SCREW SELF TAPPIN FDA Start: 05-12-2020 ORIF, fracture, wrist 2.4MM VA LCP DIS RAD PLATE FDA Start: 05-12-2020 ORIF, fracture, wrist 2.4MM VARIABLE ANG LOCK SCREW FDA Start: 05-12-2020 ORIF, fracture, wrist 2.4MM CORTEX SCREW SELF TAPPIN FDA Start: 05-12-2020 ORIF, fracture, wrist 2.4MM VA LCP DIS RAD PLATE FDA Start: 05-12-2020 ORIF, fracture, wrist 2.4MM VARIABLE ANG LOCK SCREW FDA Start: 05-12-2020 ORIF, fracture, wrist 2.4MM CORTEX SCREW SELF TAPPIN FDA Start: 05-12-2020 ORIF, fracture, wrist 2.4MM VA LCP DIS RAD PLATE FDA Start: 05-12-2020 ORIF, fracture, wrist 2.4MM VARIABLE ANG LOCK SCREW FDA Start: 05-12-2020 ORIF, fracture, wrist 2.4MM CORTEX SCREW SELF TAPPIN FDA Start: 05-12-2020 ORIF, fracture, wrist 2.4MM VA LCP DIS RAD PLATE FDA Start: 05-12-2020 ORIF, fracture, wrist 2.4MM VARIABLE ANG LOCK SCREW FDA Start: 05-12-2020 ORIF, fracture, wrist 2.4MM CORTEX SCREW SELF TAPPIN FDA Start: 05-12-2020 ORIF, fracture, wrist 2.4MM VA LCP DIS RAD PLATE FDA Start: 05-12-2020 ORIF, fracture, wrist 2.4MM VARIABLE ANG LOCK SCREW FDA Start: 05-12-2020 ORIF, fracture, wrist 2.4MM CORTEX SCREW SELF TAPPIN FDA Start: 05-12-2020 ORIF, fracture, wrist 2.4MM VA LCP DIS RAD PLATE FDA Start: 05-12-2020 ORIF, fracture, wrist 2.4MM VARIABLE ANG LOCK SCREW FDA Start: 05-12-2020 ORIF, fracture, wrist 2.4MM CORTEX SCREW SELF TAPPIN FDA Start: 05-12-2020 ORIF, fracture, wrist 2.4MM VA LCP DIS RAD PLATE FDA Start: 05-12-2020 ORIF, fracture, wrist 2.4MM VARIABLE ANG LOCK SCREW FDA Start: 05-12-2020 ORIF, fracture, wrist 2.4MM CORTEX SCREW SELF TAPPIN FDA Start: 05-12-2020 ORIF, fracture, wrist 2.4MM VA LCP DIS RAD PLATE FDA Start: 05-12-2020 ORIF, fracture, wrist 2.4MM VARIABLE ANG LOCK SCREW FDA Start: 05-12-2020 Functional Status Date Assessment Result Facility 11-17-2014 Are you deaf, or do you have serious difficulty hearing No 11/17/2014 2:21 PM EDT Lynn Mendes LPN No [facility] 11-17-2014 Are you blind, or do you have serious difficulty seeing, even when wearing glasses No 11/17/2014 2:21 PM EDT Lynn Mendes LPN No [facility] 11-17-2014 Do you have serious difficulty walking or climbing stairs No 11/17/2014 2:21 PM EDT Lynn Mendes LPN No [facility] 11-17-2014 Do you have difficul ty dressing or bathing No 11/17/2014 2:21 PM EDT Lynn Mendes LPN No [facility] 11-17-2014 Because of a physica l, mental, or emotional condition, do you have difficulty doing errands alone such as visiting a physician's office or shopping No 11/17/2014 2:21 PM EDT Lynn Mendes LPN No [facility] Mental Status Date Assessment Result Facility 05-30-2023 Cognitive function Voice/Name [facility] Work Phone: 11-17-2014 Because of a physica l, mental, or emotional condition, do you have serious difficulty concentrating, remembering, or making decisions No 11/17/2014 2:21 PM EDT Lynn Mendes LPN No [facility] Clinical Notes 12-13-2021 to 11-28-2024 Telephone Encounter - Linda Irvin RN - 08/12/2024 9:39 AM EDTTelephone Encounter - Linda Irvin RN - 08/12/2024 9:39 AM Zenobia Anderson MD - 08/11/2024 3:07 PM EDTMedications Note Date & Type Note Facility 11-28-2024 Radiology Diagnostic study note [facility] Imaging Services [address] [place] [address] Knee 4 or More Views MR#: [id number] Acct: [id number] Name: KAIA HALEY Rep #: [id number] : [id number] F [id number] From: Edw nina Thomas MD PCP: Dr. Romeo Shankar MD Status: PRE E R Study:Knee 4 or More Views Date of Exam: 11/28/24 Exam# [id number] Ordering Dr: Provider ,Ed P. PROCEDURE: KNEE 4 OR MORE VIEWS 11/28/2024 REASON FOR EXAM: INJURY TECHNIQUE: KNEE 4 OR MORE VIEWS COMPARISON: None FINDINGS: Bones: No fracture. Joints: Minimal joint space narrowing patellofemoral joint at the lateral facet. Minimal spurring superior pole patella. Effusion: None Soft tissues: Small focus of calcification proximal portion lateral collateral ligament. RAD/Knee 4 or More Views IMPRESSION: 1. No fracture 2. Very mild degenerative change patellofemoral joint. 3. Calcification proximal portion lateral collateral ligament likely the sequelae of old injury. Reading Location: [id number] CC: Dr. Romeo Shankar MD; ED PHYSICIAN PROVIDER ~ Cylinder Tester: Signed [facility] 09-26-2024 Note HNO ID: [id number] Author: ZENOBIA RODRIGUEZ MD Service: ? Author Type: Physician Type: Progress Notes Filed: 09/26/2024 08:38 Note Text: Driver Service Technician offered: Patient declinesMarivel Marti is a 69 year old Female who presents today for an endometrial biopsy for post menopausal bleeding. test: na UNIVERSAL PROTOCOL / SAFETY CHECKLIST Procedure to be Performed: EMB Sign In: A Moment of CARE was completed. Appropriate PPE (Personal Protective Equipment) worn by all providers involved with the procedure. Special equipment not required. Patient/Surrogate Stated/Verified: Patient name, Date of , Relevant allergies, and The intended procedure Time Out: Relevant labs, photos, and/or imaging studies have been reviewed. Intended patient and procedure match the source document(s) (e.g. consent, HANDP, associated studies [imaging, pathology]) are not applicable. Consent obtained and matches the intended procedure. Yes. Correct side/site has been marked and visible. Medications required for this procedure are verified. Fire risk assessed and is not applicable. Implants: are not applicable. Sign Out: Specimens are all correctly labeled and sent. All instruments, equipment, possible retained foreign bodies are accounted for. Yes. The post-procedure plan of care has been communicated to the patient or surrogate. PROCEDURE: EXTERNAL GENITALIA: Normal in appearance without lesions VAGINA: Normal in appearance without lesions BIOPSY: Speculum placed into the vagina with excellent visualization of the cervix. Cervix cleaned with betadine. Uterus sounded to 7 cm. Pipelle inserted into the uterus without difficulty and endometrial biopsy obtained. Specimen labeled and sent to pathology. Hemostasis achieved. Procedure Summary: Patient tolerated procedure well. ASSESSMENT: post menopausal bleeding PLAN: Specimens labeled and sent to Pathology. Will notify patient of results in 1-2 weeks. Zenobia Galdamez MD [facility] 09-23-2024 Note HNO ID: [id number] Author: SYLVIE WISE MD Service: ? Author Type: Physician Type: Progress Notes Filed: 09/23/2024 21:40 Note Text: The patient presents for requested ultrasound. Full report available in the Imaging tab in Epic. Sylvie Wise MD [facility] 08-12-2024 Telephone encounter Note Patient notified. Linda Irvin RN [facility] 08-12-2024 Miscellaneous Notes Patient notified. Linda Irvin RN Left message for patient to call office. Helen Milner RN Images from the original note were not included. Zenobia Rodriguez MD to [facility] [place] 08/12/24 9:00 AM Result Note Please notify patient that her culture was positive for BV- I will treat with flagyl. She should still get pelvic ultrasound completed. KATHLEEN/TRICHOMONAS NAAT; BACTERIAL VAGINOSIS NAAT documented in this encounter [facility] 08-12-2024 Telephone encounter Note Left message for patient to call office. Helen Milner RN [facility] 08-12-2024 Telephone encounter Note Images from the original note were not included. Zenobia Rodriguez MD to [facility] [place] 08/12/24 9:00 AM Result Note Please notify patient that her culture was positive for BV- I will treat with flagyl. She should still get pelvic ultrasound completed. KATHLEEN/TRICHOMONAS NAAT; BACTERIAL VAGINOSIS NAAT [facility] 08-11-2024 Note HNO ID: [id number] Author: ZENOBIA RODRIGUEZ MD Service: ? Author Type: Physician Type: Progress Notes Filed: 08/11/2024 15:51 Note Text: Driver Service Technician offered: Patient declines. Kaia Haley is a 69 year old female who presents for vaginal bleeding. HPI: Post menopausal bleeding/irritation Itching for a couple months and now bleeding, worsened bleeding yesterday, no clots, believes it is due to irritation Does not use creams or moisturizer, previously given Estrace but does not remember using No odors or discharge Noticed blood on toilet paper, no blood in stool, no pain with BM, no history of hemorrhoids Wore pad yesterday evening, less blood throughout evening with light pink discharge. Today, a little bit of blood was present on underwear. Denies Changes in soaps or detergents. 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 History Comments: Sexual Activity: Not Asked; Male; not asked Contraception: No contraception data on record PAST MEDICAL HISTORY Diagnosis Date GERD (gastroesophageal reflux disease) Spinal stenosis Unspecified hypothyroidism PAST SURGICAL HISTORY Procedure Laterality Date COLONOSCOPY FLX DX W/COLLJ SPEC WHEN PFRMD Colonoscopy, Two EGD PAST SURGICAL HISTORY OF LAPAROSCOPIES X3 FAMILY HISTORY Problem Relation Age of Onset Macular Degen Mother Cataract Mother Parkinson?s Disease Mother Diabetes Father Diabetes Sister Pre Diabetic GI Sister Blood Clots Brother Results of a MVA No Known Problems Daughter No Known Problems Son Social History Tobacco Use Smoking status: Never Smokeless tobacco: Never Vaping Use Vaping status: Never Used Substance Use Topics Alcohol use: No Drug use: No Current Outpatient Medications Medication Sig ergocalciferol, vitamin D2, (VITAMIN D2 ORAL) Take by mouth. rosuvastatin (CRESTOR) 10 mg tablet levothyroxine (SYNTHROID) 125 mcg tablet 1/2 tablet daily omeprazole(PRILOSEC 20 MG CAP) No current facility-administered medications for this visit. Allergies As of Date: 08/11/2024 Allergen Noted Reaction PENICILLINS 05/18/2005 Rash Fully Assessed 08/11/2024 REVIEW OF SYSTEMS Abdomen: No bloating, early satiety, indigestion, or increased flatulence. No abdominal pain, nausea, vomiting, diarrhea. Reports constipation. Bladder: No dysuria, gross hematuria, urinary frequency, urinary urgency, or incontinence. Breast: No breast lumps, nipple d/c, overlying skin changes, redness or skin retraction. Expanded ROS: N/A Allergies and current medication updated:Yes SENSITIVE EXAM: The sensitive examination was discussed with the Patient or Patient's Authorized Sub Prior. As applicable, any other physician, advance practice provider, medical student, or other health professional student that will be observing or involved in the sensitive examination for educational or training purposes was discussed with the Patient or Authorized Sub Prior. The Patient or Authorized Sub Prior has agreed to proceed with the sensitive examination. (Sensitive examination includes inspection and/or palpation of the breasts, pelvis, prostate and anorectal regions). EXAM: BP 120/70 Wt 205 lb (93.0kg) LMP 05/07/2005 GENERAL: pleasant, female in no apparent distress HEENT: Normocephalic and atraumatic NECK: Supple and full range of motion DERMATOLOGY: Normal, without lesions, non-icteric, and non-hirsute ABDOMEN: soft, non-tender, and no masses PELVIC: external genitalia normal, normal Bartholin's glands, urethra, [place]'s glands, no vulvar lesions, no cervical lesions, good vaginal support, normal appearing perineal body and perianal region, Scant blood noted at OS BIMANUAL: uterus normal size, shape and consistency, no adnexal masses, and non-tender NEURO: alert and oriented x3,exam grossly non-focal EXTREMITIES: normal ASSESSMENT AND PLAN: Assessment AND Plan PMB (postmenopausal bleeding) Orders: PAP TEST PELVIC US WHI; Future ENDOMETRIAL BIOPSY Vaginal irritation Orders: KATHLEEN/TRICHOMONAS NAAT BACTERIAL VAGINOSIS NAAT Encounter for screening for malignant neoplasm of cervix Orders: PAP TEST Medical Decision Making: Problems: Moderate: New problem with uncertain prognosis Data: Unique test result(s) reviewed: 1 Unique test(s) ordered: 3+ Risk: Moderate: Drug management and Moderate risk from testing/treatment Medical Decision Making Level: 4 - Moderate Zenobia Galdamez MD [facility] 08-11-2024 History of Present illness Narrative Driver Service Technician offered: Patient declines. Kaia Haley is a 69 year old female who presents for vaginal bleeding. HPI: Post menopausal bleeding/irritation Itching for a couple months and now bleeding, worsened bleeding yesterday, no clots, believes it is due to irritation Does not use creams or moisturizer, previously given Estrace but does not remember using No odors or discharge Noticed blood on toilet paper, no blood in stool, no pain with BM, no history of hemorrhoids Wore pad yesterday evening, less blood throughout evening with light pink discharge. Today, a little bit of blood was present on underwear. Denies Changes in soaps or detergents. 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 rosuvastatin (CRESTOR) 10 mg tablet levothyroxine (SYNTHROID) 125 mcg tablet 1/2 tablet daily omeprazole(PRILOSEC 20 MG CAP) No current facility-administered medications for this visit. Allergies As of Date: 08/11/2024 Allergen Noted Reaction PENICILLINS 05/18/2005 Rash Fully Assessed 08/11/2024 REVIEW OF SYSTEMS Abdomen: No bloating, early satiety, indigestion, or increased flatulence. No abdominal pain, nausea, vomiting, diarrhea. Reports constipation. Bladder: No dysuria, gross hematuria, urinary frequency, urinary urgency, or incontinence. Breast: No breast lumps, nipple d/c, overlying skin changes, redness or skin retraction. Expanded ROS: N/A Allergies and current medication updated:Yes SENSITIVE EXAM: The sensitive examination was discussed with the Patient or Patient's Authorized Sub Prior. As applicable, any other physician, advance practice provider, medical student, or other health professional student that will be observing or involved in the sensitive examination for educational or training purposes was discussed with the Patient or Authorized Sub Prior. The Patient or Authorized Sub Prior has agreed to proceed with the sensitive examination. (Sensitive examination includes inspection and/or palpation of the breasts, pelvis, prostate and anorectal regions). EXAM: BP 120/70 Wt 205 lb (93.0kg) LMP 05/07/2005 GENERAL: pleasant, female in no apparent distress HEENT: Normocephalic and atraumatic NECK: Supple and full range of motion DERMATOLOGY: Normal, without lesions, non-icteric, and non-hirsute ABDOMEN: soft, non-tender, and no masses PELVIC: external genitalia normal, normal [place]'s glands, urethra, [place]'s glands, no vulvar lesions, no cervical lesions, good vaginal support, normal appearing perineal body and perianal region, Scant blood noted at OS BIMANUAL: uterus normal size, shape and consistency, no adnexal masses, and non-tender NEURO: alert and oriented x3,exam grossly non-focal EXTREMITIES: normal ASSESSMENT AND PLAN: Assessment & Plan PMB (postmenopausal bleeding) Orders: PAP TEST PELVIC US WHI; Future ENDOMETRIAL BIOPSY Vaginal irritation Orders: KATHLEEN/TRICHOMONAS NAAT BACTERIAL VAGINOSIS NAAT Encounter for screening for malignant neoplasm of cervix Orders: PAP TEST Medical Decision Making: Problems: Moderate: New problem with uncertain prognosis Data: Unique test result(s) reviewed: 1 Unique test(s) ordered: 3+ Risk: Moderate: Drug management and Moderate risk from testing/treatment Medical Decision Making Level: 4 - Moderate Zenobia Galdamez MD documented in this encounter [facility] 07-22-2024 Radiology Diagnostic study note [facility] Imaging Services [address] [place] [id number] Abdomen/Pelvis without Cont MR#: [id number] Acct: [id number] Name: KAIA HALEY Rep #: [id number] : 1955 F 69 From: Johana Weems MD PCP: Dr. Romeo Shankar MD Status: REG C LAINE Study:Abdomen/Pelvis without Cont Date of Exa m: 07/22/24 Exam# [id number] Ordering Dr: Romeo Shankar MD PROCEDURE: ABDOMEN/PELVIS WITHOUT CONT 07/22/2024 REASON FOR EXAM: KIDNEY STONE TECHNIQUE: CT abdomen and pelvis was performed without IV contrast. Multiplanar reformats were generated. PATIENT PREPARATION: Per protocol ORAL CONTRAST TYPE: None. CONTRAST: None. One or more dose reduction techniques were used (e.g., Automated exposure control, adjustment of the mA and/or kV according to patient size, use of iterative reconstruction technique. RADIATION DOSE SUMMARY: CTDlvol: 13.15 mGy DLP: 680.0 mGycm COMPARISON: 01/28/2022; note that only the images are available, the report is not availableat the time of dictation. FINDINGS: Note that evaluation of the abdominopelvic viscera, vasculature, and remaining soft tissues is limited in the absence of IV contrast. Lung bases: Small atelectasis/scarring. Liver: Small LEFT lobe hypodensity too small to characterize likely a cyst or hemangioma in the absence of known malignancy, unchanged. Spleen: Granulomas. Gallbladder: Unremarkable. Pancreas: Unremarkable. Adrenals: Unremarkable. Kidneys: No hydronephrosis or ureteral calculus identified. Grossly similar presumed pelvic phleboliths in the absence of hydronephrosis and hydroureter. Bowel: Diverticulosis.. Normal caliber appendix. Lymph nodes: Unremarkable. Vasculature: Mild calcific atherosclerosis. Peritoneum: Unremarkable. Bladder: Underdistended and suboptimally evaluated, grossly unremarkable. Reproductive Organs: Unremarkable. Body Wall: Unremarkable. Bones: Suspect demineralization. Multilevel spondylosis.. CT/Abdomen/Pelvis without Cont IMPRESSION: 1. No acute noncontrast findings. No hydronephrosis or ureteral calculus identified. 2. Additional description as above. Reading Location: [facility] CC: Dr. Romeo Shankar MD ~ Cylinder Tester: Signed [facility] 07-22-2024 Radiology Diagnostic study note [facility] Imaging Services [address] [place] [address] L/S Spine Min 4 Views MR#: [id number] Acct: [id number] Name: KAIA HALEY Rep #: [id number] : 1955 F 69 From: Johana Alcantara MD PCP: Dr. Romeo Shankar MD Status: REG C LAINE Study:L/S Spine Min 4 Views Date of Exam: 07/22/24 Exam# [id number] Ordering Dr: Romeo Shankar MD EXAM: XR Lumbosacral Spine, 2 or 3 Views CLINICAL INDICATION: LOW BACK PAIN TECHNIQUE: Frontal and lateral views of the lumbar spine and sacrum. COMPARISON: No relevant prior studies available. FINDINGS: VERTEBRAE: Multilevel endplate degenerative changes of the lumbar spine from L1-S1. Moderate facet arthropathy of L4-S1. Grade 1 anterior spondylolisthesis of L4 over L5. No acute fracture. SACRUM/COCCYX: Unremarkable as visualized. No acute fracture. DISC SPACES: See above. SOFT TISSUES: Unremarkable. RAD/L/S Spine Min 4 Views IMPRESSION: Degenerative changes as above. Reading [facility] CC: Dr. Romeo Shankar MD ~ Cylinder Tester: Signed [facility] 06-01-2023 Emergency department Note ED Attending Has had confusion for several weeks, presented to outside hospital and had CT that showed possible subacute intraparenchymal hemorrhage EM Medical Decision Making MDM: Medical Decision Making PAtient to be admitted. Current NIH is zero Discussed with neurovascular and NSGY Problems Addressed: Brain bleed: acute illness or injury that poses a threat to life or bodily functions Amount and/or Complexity of Data Reviewed Labs: ordered. Radiology: ordered. ECG/medicine tests: ordered. Risk Prescription drug management. Decision regarding hospitalization. Past Medical History: Diagnosis Date GERD (gastroesophageal reflux disease) Hyperlipidemia Hypothyroidism No past surgical history on file. BP 128/62 (BP Location: Right arm, BP Position: Sitting) Pulse 58 Temp 98.1 F (36.7 C) (Oral) Resp 18 Ht 1.676 m (5' 5.98) Wt 98 kg (216 lb 0.8 oz) SpO2 96% BMI 34.89 kg/m Smoking Status Never On 05/30/2023 I saw and evaluated the patient with resident. I provided a substantive portion of the care for this patient. I personally performed all aspects of the medical decision making for this encounter. I have reviewed and verified this with the resident so that it accurately reflects our care. Hussain Limon MD 06/06/23 1106 Received on sign out Vitals: 05/31/23 0400 BP: 128/61 Pulse: 80 Resp: 23 Temp: SpO2: 95% ED Course as of 05/31/23 0436 Wed May 30, [id number] Admit to neurovasc PCU. Stroke vs brain mass. Normal Exam. Nayely May 31, 2023 0435 Called to room for an episode of n/v and reported SOB. The patient told me the SOB resolved after vomiting. She denies any abnormal intraoral swelling or other odd sensation. Breathing unlabored. Speaking appropriated. No oral swelling. No stridor. Lungs CTAB. HR and SpO2 normal. Will order a dose of Zofran and continue to monitor. Lynn Shetty MD Resident 05/31/236 37 yo F pt transferred to from [facility] as a Level A hemorrhagic Stroke Alert. Pt has been feeling fuzzy for 2-3 weeks and family finally convinced pt to come to ER. CTH at OSH showed subacute bleed. Pt arrives to CT scanner w/ ER and neurovasc teams at bedside. A&Ox4, VSS Department of Pharmacy Emergency Department Stroke Alert Response Note Patient Name: Kaia Haley Room/Bed: E036/E036 A Pharmacist responded to the stroke alert. The patient was determined to be having a hemorrhagic stroke. The IHIS order set ED: Confirmed Stroke/ICH - Secondary was placed by Dr. Davis for ongoing care. Pertinent medications received prior to arrival: none A targeted home medications list was obtained from OSH records, surescripts, patient report and has been updated in IHIS. The patient is NOT on any anticoagulant or antiplatelet medications. After discussion with Dr. Montelongo, SBP goal is to be between 120 and 140 mmHg. SBP is currently at goal and no interventions were required. Verified orders for PRN anti-hypertensives with correct blood pressure goal (SBP 120-140 mmHg) have been ordered for ongoing care.. Please feel free to contact me with any further questions. Name: Kimberly Matias [facility] Phone: [phone] Date/Time: 05/30/2023 9:34 PM DEPARTMENT OF EMERGENCY MEDICINE CHIEF COMPLAINT No chief complaint on file. HPI Kaia Haley is a 67 y.o. female with history of GERD, HLD, hypothyroidism who presents as stroke alert. Has had confusion for several weeks, presented to outside hospital and had CT that showed possible subacute intraparenchymal hemorrhage. Patient subsequently transferred to [facility] for further evaluation as hemorrhage. LKW: unknown, confusion for several weeks Glucose: 105 PAST MEDICAL HISTORY Past medical history was reviewed and is non-contributory to the presenting problem other than: Past Medical History: Diagnosis Date GERD (gastroesophageal reflux disease) Hyperlipidemia Hypothyroidism SURGICAL HISTORY Past surgical history was reviewed and is non-contributory to the presenting problem other than: No past surgical history on file. CURRENT MEDICATIONS No current facility-administered medications for this encounter. Current Outpatient Medications Medication Sig Dispense Refill OMEPRAZOLE PO Take by mouth. Ondansetron 4 MG tablet Take 1 tablet by mouth every 8 hours as needed for Nausea / Vomiting or Nausea for up to 8 doses. 8 tablet 0 Rosuvastatin 5 MG tablet Take 1 tablet by mouth daily. ALLERGIES Allergies Allergen Reactions Penicillins Rash FAMILY HISTORY Family history was reviewed and is non-contributory to the presenting problem other than: No family history on file. SOCIAL HISTORY Social history was reviewed and is non-contributory to the presenting problem other than: Social History Socioeconomic History Marital status: Spouse [...] on file Housing Stability: Not on file PHYSICAL EXAM BP 138/72 Pulse 78 Resp 16 SpO2 93% Smoking Status Never General: Alert and oriented. In no acute distress. HEENT: Normocephalic and atraumatic. Eyes: EOMI. PERRL. Oropharynx: Mucous membranes moist. No lesions noted. Neck: Neck supple. Respiratory: Normal Respiratory effort. Clear to auscultation bilaterally. Cardiovascular: Normal Rate and Regular Rhythm. Normal S1 and S2. Abdomen: Soft, non-distended, non-tender. No rebound/guarding. Musculoskeletal: No deformities noted. Normal range of motion all extremities. Neurological: CN II-XII intact. Clear speech. Skin: No cyanosis. No rashes or excoriations noted on face, abd, or limbs. There is no height or weight on file to calculate BMI. NIHSS (Provider) Flowsheet Row First Filed Value Provider NIH Stroke Scale NIH Interval (Provider) admission filed on 05/30/20232131 NIH Level of Conciousness (Provider) 0 filed on 05/30/20232131 NIH LOC Questions (Provider) 0 filed on 05/30/20232131 NIH LOC Commands (Provider) 0 filed on 05/30/20232131 NIH Best Gaze (Provider) 0 filed on 05/30/20232131 NIH Visual (Provider) 0 filed on 05/30/2023 213 NIH Facial Palsy (Provider) 0 filed on 05/30/20232131 NIH Left Arm Motor (Provider) 0 filed on 05/30/20232131 NIH Right Arm Motor (Provider) 0 filed on 05/30/20232131 NIH Left Leg Motor (Provider) 0 filed on 05/30/20232131 NIH Right Leg Motor (Provider) 0 filed on 05/30/20232131 NIH Limb Ataxia (Provider) 0 filed on 05/30/20232131 NIH Sensory (Provider) 0 filed on 05/30/2023 213 NIH Best Language (Provider) 0 filed on 05/30/20232131 NIH Dysarthria (Provider) 0 filed on 05/30/20232131 NIH Extinction and Inattention (Provider) 0 filed on 05/30/20232131 NIH Total Score (Provider) 0 filed on 05/30/20232131 Is NIH=0 Within 180 min of Last Known Well Time? -- ED COURSE & MEDICAL DECISION MAKING Assessment: Kaia Haley is a 67 y.o. female who presents as a Stroke Alert with the following neurological deficits: confusion. The patient was met in the CT scanner by myself and the Neurology team. The patient was found to be hemodynamically stable and protecting airway. DDx: cerebrovascular accident, transient ischemic attack, complex migraine, seizure, metabolic abnormalities, intracranial mass Plan: - Stroke Alert - Labs: CBC, chemistries, coags, LFTs, POC glucose - Imaging: CT Head w/o contrast, CTA - BP control - Neuro checks - Neurovascular consult ED Course and Medical Decision-Making: Initial NIH 0 The patient has persistent symptoms. Per Neurovascular service, she is to be admitted to their service. This note was dictated using dictation software. Attempts at proofreading have been made, however errors may still occasionally occur. Julia Davis DO Resident 05/30/23 8631 ED SW responded to hemorrhagic stroke. Pt is a transfer from [facility] Physicians medic #[id number], who reports spouse is aware of transfer, but will not be coming to [facility] ED tonight. Pt is alert and following commands appropriately at this time. Spouse's number for medical updates: Enmanuel Haley Spouse [phone] Pt also has her adult child listed: Mariely Tello Child [phone] SW to remain available for any additional needs. KUMAR Fernandez [phone] Addend: Son at bedside. Son denies any needs at this time. KUMAR Fernandez [phone] Bed: E036 Expected date: Expected time: Means of arrival: Comments: sudha documented in this encounter [facility] 06-01-2023 Physician Emergency department Note ED Attending Has had confusion for several weeks, presented to outside hospital and had CT that showed possible subacute intraparenchymal hemorrhage EM Medical Decision Making MDM: Medical Decision Making PAtient to be admitted. Current NIH is zero Discussed with neurovascular and NSGY Problems Addressed: Brain bleed: acute illness or injury that poses a threat to life or bodily functions Amount and/or Complexity of Data Reviewed Labs: ordered. Radiology: ordered. ECG/medicine tests: ordered. Risk Prescription drug management. Decision regarding hospitalization. Past Medical History: Diagnosis Date GERD (gastroesophageal reflux disease) Hyperlipidemia Hypothyroidism No past surgical history on file. BP 128/62 (BP Location: Right arm, BP Position: Sitting) Pulse 58 Temp 98.1 F (36.7 C) (Oral) Resp 18 Ht 1.676 m (5' 5.98) Wt 98 kg (216 lb 0.8 oz) SpO2 96% BMI 34.89 kg/m Smoking Status Never On 05/30/2023 I saw and evaluated the patient with resident. I provided a substantive portion of the care for this patient. I personally performed all aspects of the medical decision making for this encounter. I have reviewed and verified this with the resident so that it accurately reflects our care. Hussain Limon MD 06/06/23 1106 [facility] Work Phone: 06-01-2023 Nurse Note Stroke patient education has been reviewed and all required elements are complete and personalized. Care plan documentation complete and patient adequate for discharge. Next dose medication details have been added to the AVS as appropriate. [facility] 06-01-2023 Miscellaneous Notes Stroke patient education has been reviewed and all required elements are complete and personalized. Care plan documentation complete and patient adequate for discharge. Next dose medication details have been added to the AVS as appropriate. Problem: PT - General Goals Goal: Sit <-> Stand Transfers - Patient will perform sit to/from stand transfers with independence and without an assistive device in order to improve functional mobility and safety. Outcome: Ongoing Goal: Standing Endurance/Balance - Patient will perform standing balance tasks for 10 min with independence and without an assistive device Outcome: Ongoing Goal: Ambulation - Patient will ambulate 300 feet with independence and without an assistive device to improve ability to safely navigate home and community. Outcome: Ongoing Goal: Stairs - Patient will ascend/descend 5 stairs with modified independence, without an assistive device, and no railing(s) to improve ability to safely navigate home and community. Outcome: Ongoing Problem: RADIO OFFICER - Cognition Goal: Memory: Strategy Training - Patient will demonstrate understanding of external and internal memory strategies with minimal, verbal cues in order to facilitate improvements with memory for greater level of independence with IADLs Outcome: Ongoing Goal: IADL Problem Solving - Patient will complete multistage problem-solving for daily living math, job related tasks and/or home skills in structured therapy tasks with minimal, verbal cues with 90% accuracy or greater to facilitate improved independence Outcome: Ongoing Goal: Executive Function - Patient will complete functional executive functioning tasks (e.g., sequencing of ADLs, planning) with 90% of accuracy or greater given minimal, verbal cues to improve functional independence Outcome: Ongoing Problem: RADIO OFFICER - Language Goal: Word Retrieval Strategies for Conversation - Patient will state and/or demonstrate understanding of trained strategies targeting anomia with no more than set-up cues to use strategies during functional conversation to reduce communication breakdowns Outcome: Ongoing Problem: OT - ADLs Goal: Grooming - Patient will complete grooming in standing with independence for improved ability to safely complete ADLs. Outcome: Ongoing Goal: Toileting - Patient will complete toileting task with independence and adaptive equipment as needed for improved ability to safely complete self-care activities. Outcome: Ongoing Goal: Bathing - Patient will perform full body bathing routine with modified independence while seated for improved ability to complete self-care activities Outcome: Ongoing Problem: OT - Cognition Goal: Cognition Home Maintenance - Patient will complete simulated home maintenance task: medication management, finance management, and meal prep with supervision and 100% accuracy. Outcome: Ongoing Problem: OT - Strength/ROM Goal: Strength/ROM ADL Participation - Patient will participate in UE exercise program with independence to prevent deconditioning while in hospital and to max UE ROM/Coordination/strength for ADLs. Outcome: Ongoing Problem: OT - Other Goal: Energy Conservation Task Recall - Patient will independently recall 3 energy conservation principles to increase functional activity tolerance during ADLs, IADLs, and functional mobility tasks. Outcome: Ongoing Neurosurgery Update: Consulted for hemorrhagic mass versus intraparenchymal hemorrhage, small SAH. Imaging reviewed which revealed R frontal IPH with SAH. MRI was obtained and was not read as there being concern for any underlying mass. No neurosurgical intervention at this time. - No need for neurosurgical follow up - Neurosurgery will sign-off. Please call with questions. Issac Toledo MD, Neurosurgery NS2 ([phone]) On admission to B10E, from ED a dual RN initial assessment of skin condition was performed by Ignacia Humphreys RN and Mariana SANCHEZ. Skin Assessment: Skin within defined limits:Yes Diogo Score: 21 LDA Added:No Ignacia Humphreys RN I recertify that this patient requires inpatient services at this time. Inpatient services are due to the following medical concerns brain bleed. Plans for post hospitalization care [facility] . documented in this encounter [facility] 06-01-2023 Plan of care note Problem: PT - General Goals Goal: Sit <-> Stand Transfers - Patient will perform sit to/from stand transfers with independence and without an assistive device in order to improve functional mobility and safety. Outcome: Ongoing Goal: Standing Endurance/Balance - Patient will perform standing balance tasks for 10 min with independence and without an assistive device Outcome: Ongoing Goal: Ambulation - Patient will ambulate 300 feet with independence and without an assistive device to improve ability to safely navigate home and community. Outcome: Ongoing Goal: Stairs - Patient will ascend/descend 5 stairs with modified independence, without an assistive device, and no railing(s) to improve ability to safely navigate home and community. Outcome: Ongoing [facility] 06-01-2023 Hospital course Narrative Images from the original note were not included. Discharge Summary Name: Kaia Haley Age: 67 y.o. Birthday: 1955 Admit Date: 05/30/2023 Discharge Date: 06/01/2023 Admission Information Admitting Physician: Alyssa Schultz MD Discharge Information Discharge Physician: Alyssa Schultz MD Problem List Active Hospital Problems Diagnosis Brain bleed Resolved Hospital Problems No resolved problems to display. DISCHARGE LETTER: Dear Doctors, I recently had the opportunity to care for Kaia Haley during her recent hospital stay at [facility]. Kaia Haley is a 67 y.o. female with a history of GERD, HLD, hypothyroidism, OA, and spinal stenosis who presented on 05/30/2023 as a stroke alert with confusion for 2-3 weeks. While at OSH, CT head showed right frontal intraparenchymal hemorrhage with cortical subarachnoid hemorrhage with surrounding edema. NIHSS on arrival was 0. She was [facility], where neurosurgery was consulted and recommended additional imaging. CT abdomen/pelvis was unremarkable for primary malignancy or metastasis. CT chest showed no evidence for metastatic disease. Repeat CT head was stable. She was transferred to the floor for further hemorrhagic workup. MRI brain showed acute right frontal intraparenchymal and subacute hematoma. Neuroradiology was consulted, noting an unclear etiology, though unlikely malignancy given thorough imaging. While on the floor, she was stable and displayed stable NIHSS score of 0 and was evaluated by PT/OT/RADIO OFFICER who recommended ambulatory physical therapy, occupational therapy, and speech therapy. We plan for her to follow up with neurovascular in 4-6 weeks with MRI brain imaging in 2 months. Acute R frontal IPH Subsacute R frontal IPH - CT head: Right frontal IPH with cortical SAH with surrounding edema, no MLS - CTA brain/neck: Right frontal lobe mass suggestive of underlying mass - MRI: Acute parenchymal hematoma in right frontal with additional subacute hematoma - SBP < 140 - LDL: 74 - A1C: 6.0 - TTE: EF 60-65%, no shunt - Statin therapy: Rosuvastatin 5mg QD (home med) -Patients LDL and HgbA1c were checked and the patient will maintained on a high intensity statin. - Antiplatelet therapy: holding - Anticoagulation: holding - Repeat MRI Brain w/w/o contrast in 2 months - Follow up with [facility] in 4-6 weeks Hypothyroidism: Continue home synthroid HLD: Continue home rosuvastatin Physical Exam on the Date of Discharge: Vitals: 06/01/23 1209 BP: 128/62 Pulse: 58 Resp: 18 Temp: 98.1 F (36.7 C) SpO2: 96% Wt Readings from Last 1 Encounters: 06/01/23 98 kg (216 lb 0.8 oz) Gen: awake, alert, NAD HEENT: normocephalic, no scalp lesions or tenderness, PERRLA, EOMI Neck: trachea midline, no JVD CV: +S1S2, RRR, no m/r/g Lungs: LCTA bilaterally with equal chest rise Abd: soft, nontender, nondistended, +BS x4 quadrants Extrem: Warm and well perfused, no cyanosis, clubbing, edema, 2+ pulses bilaterally Stroke Assessment: 06/01/2023 Provider NIH Stroke Scale NIH Interval (Provider): daily NIH Level of Conciousness (Provider): 0 NIH LOC Questions (Provider): 0 NIH LOC Commands (Provider): 0 NIH Best Gaze (Provider): 0 NIH Visual (Provider): 0 NIH Facial Palsy (Provider): 0 NIH Left Arm Motor (Provider): 0 NIH Right Arm Motor (Provider): 0 NIH Left Leg Motor (Provider): 0 NIH Right Leg Motor (Provider): 0 NIH Limb Ataxia (Provider): 0 NIH Sensory (Provider): 0 NIH Best Language (Provider): 0 NIH Dysarthria (Provider): 0 NIH Extinction and Inattention (Provider): 0 NIH Total Score (Provider): 0 Stroke Scales Flowsheet Row Most Recent Value ICH Score (Calculated) 0 filed on 05/30/20232225 Modified Lyon Scale Score Premorbid (MRSS) 0 filed on 05/30/2023 2213 NIH Total Score (Provider) 0 filed on 05/31/2023 0833 At the time of discharge the patient's mental status was alert and oriented. Upon discharge the patient's code status Full Code It has been my pleasure participating in this patient's care. Please contact me with any questions or concerns regarding her hospital stay. Signed, Melony Madsen MD Dictated under attending physician Alyssa Schultz MD Division of Neurology CONSULTS DURING ADMISSION: IP CONSULT TO OCCUPATIONAL THERAPY IP CONSULT TO PHYSICAL THERAPY IP CONSULT TO SPEECH THERAPY IP CONSULT TO SURGERY - NEURO IMAGING / PROCEDURES / RESULTS: ECHOCARDIOGRAM Final Result CT ABDOMEN/PELVIS WITH CONTRAST Final Result IMPRESSION: 1. No definite evidence of any primary malignancy or metastatic disease in the abdomen or pelvis. 2. No abdominal or pelvic lymphadenopathy by size criteria 3. Small bilateral renal cysts 4. Subtle thickening along the distal esophagus with a small hiatal hernia. Please correlate with upper GI symptoms 5. Layering of sludge and possible tiny stones in the gallbladder. Right upper quadrant ultrasound is recommended for confirmation of these findings. 6. Small simple appearing cyst in the left hepatic dome. 7. Slight urinary bladder wall thickening. Please correlate with lower urinary tract symptoms 8. Ancillary findings as described above CHEST WITH CONTRAST Final Result IMPRESSION: 1. No convincing CT evidence of metastatic disease within the chest. HEAD WITHOUT CONTRAST Final Result IMPRESSION: Stable hemorrhage with surrounding edema in the right frontal lobe. Adjacent subarachnoid hemorrhage in the right frontal lobe. Small amount of hemorrhage along the left frontal convexity new since the prior exam. BRAIN WITH AND WITHOUT CONTRAST Final Result IMPRESSION: Prominent acute parenchymal hematoma in the posterior/superior right frontal lobe with additional more subacute hematoma more anterior in the medial right frontal lobe. There is no corresponding enhancement with the larger hematoma with small amount of peripheral enhancement at the subacute hematoma without discrete focal nodularity. Intrinsic T1 hyperintensity may obscure additional areas of underlying enhancement, and follow-up imaging in 6-8 weeks is recommended. Scattered sulcal susceptibility artifact, much of which corresponds to the areas of subarachnoid hemorrhage on recent CT head. There is also corresponding mild leptomeningeal enhancement which may be related to this subarachnoid hemorrhage. Other differential considerations would include infectious/inflammatory and neoplastic etiologies, and attention on follow-up imaging is advised to assess for interval change. Nonspecific right-sided dural thickening and enhancement, which may be reactive. ANGIO BRAIN/NECK Final Result IMPRESSION: 1. No hemodynamically significant stenosis, occlusion, aneurysm, dissection, or arteriovenous malformation of the major arteries of the head and neck. 2. Right frontal lobe hyperattenuating lesion measures approximately 108 Hounsfield units on this exam versus approximately 75 HU on the contemporaneous noncontrasted CT, suggestive of and underlying enhancing mass. This can be further evaluated with nonemergent MRI of the brain. I personally viewed and interpreted these images and I have reviewed and approved this report. STROKE HEAD-STROKE ALERT ONLY Final Result IMPRESSION: 1. High-attenuating lesion at the superior right frontal lobe with surrounding vasogenic edema raises concern for hemorrhagic mass versus intraparenchymal hemorrhage; this is stable from prior outside hospital same-day head CT. 2. Small amount of subarachnoid hemorrhage within sulci along the medial margin of the right frontal lobe. 3. Recommend nonemergent MRI brain with and without contrast to assess for an underlying mass lesion. Findings were discussed with Hernesto Montelongo at 2152 on 05/30/[address] Kelsi Elias. I personally viewed and interpreted these images and I have reviewed and approved this report. BRAIN WITH AND WITHOUT CONTRAST (Results Pending) TTE Left Ventricle: Chamber size is normal. Normal wall thickness. Normal global systolic function. Regional wall motion is normal. Ejection fraction is normal (60 - 65%). Diastolic function is normal. Right Ventricle: Chamber size is normal. Normal wall thickness. Segmental wall motion is normal. Systolic function is normal. Left Atrium: Chamber size is normal. Aortic Valve: Aortic valve not well visualized. Leaflet mobility is normal. No regurgitation. No stenosis. Mitral Valve: Normal appearing leaflets. Leaflet mobility is normal. Trace regurgitation. No valve stenosis. Tricuspid Valve: Normal leaflets. Leaflet mobility is normal. Mild regurgitation. No stenosis. No evidence of qrsvz-lp-hnfd shunt with agitated saline contrast (NEGATIVE bubble study). Should you require further information or copies of results or reports please contact Medical Information Management @ [phone] LABS AT TIME OF DISCHARGE: Lab Results Component Value Date SODIUM 141 06/01/2023 SODIUM 136 06/15/2022 POTASSIUM 3.7 06/01/2023 POTASSIUM 3.7 06/15/2022 MAGNESIUM 2.2 06/01/2023 MAGNESIUM 2.0 06/15/2022 BUN 13 06/01/2023 BUN 14 06/15/2022 CREATSERUM 0.93 06/01/2023 CREATSERUM 0.86 06/15/2022 Lab Results Component Value Date WBC 7.26 06/01/2023 WBC 5.5 06/15/2022 HGB 12.5 06/01/2023 HGB 13.4 06/15/2022 PLATELET 205 06/01/2023 PLATELET 205 06/01/2023 PLATELET 182 06/15/2022 INR 1.0 06/01/2023 Lab Results Component Value Date HGBA1C 6.0 (H) 05/30/2023 RESULTS / STUDIES PENDING AT DISCHARGE: None FURTHER RECOMMENDATIONS: Please obtain repeat MRI Brain with and without contrast in 2 months Please hold off on antiplatelets or anticoagulants given aden ammon. Continue home rosuvastatin once daily. PATIENT'S MEDICAL HOME AT DISCHARGE: [facility] [place] [address] / [facility] [id number] DISCHARGE ORDERS AND MEDICATIONS: No orders of the defined types were placed in this encounter. Discharge Orders MRI BRAIN WITH AND WITHOUT CONTRAST AMB REFERRAL TO NEUROLOGY AMB REFERRAL TO OCCUPATIONAL THERAPY AMB REFERRAL TO PHYSICAL THERAPY AMB REFERRAL TO SPEECH LANGUAGE PATHOLOGY AMB REFERRAL TO OCCUPATIONAL THERAPY Medication List for when you go home CONTINUE taking these medications Morning Afternoon Evening Bedtime As Needed Levothyroxine 50 MCG TABS Take 1 tablet by mouth daily. Commonly known as: SYNTHROID Last time this was given: 50 mcg on June 01, 2023 8:26 AM omeprazole [address] capsule Take 1 capsule by mouth daily. Commonly known as: PRILOSEC Rosuvastatin 5 MG TABS Take 1 tablet by mouth daily. Commonly known as: CRESTOR Last time this was given: 5 mg on June 01, 2023 8:26 AM Medication Instructions: Know your medicines Make sure you know why you are taking each medicine. Make a master list of all your medicines. Write down the medicine names and doctors' names. Include doses and side effects too. And write down why you take each medicine. Include all prescription and obaz-pof-zqyjpmd medicines, vitamins, and supplements. Keep this list up to date. Take a copy to each doctor visit. Know when you will run out of each medicine. Ask your pharmacist if there are ways the drugstore can remind you to refill your medicines so you do not run out. Write refill reminders on your calendar. Don't wait until you have a few pills left. Ask your pharmacist to plan your refills so that you can crop picker all your medicines at the same time. This can mean fewer trips to the drugstore. If we have prescribed you a new medication during your stay, please contact with your primary physician for refills FOLLOW-UP: Paulo Shankar MD [address] [address] Go to An appoitnment has been scheduled for you to get established with Dr Shankar. Your appoitnment is on Sunday 06/04 at 140pm. You need to bring your ID, Insurance Cards, a copy of your current medciations and your discharge summary form [facility]. Addendum 06/18/2023: - Vasogenic Edema: noted on imaging. Associated with ICH. Stable on repeat imaging. Alyssa Schultz MD documented in this encounter [facility] 06-01-2023 Hospital Discharge instructions Ramonita Fragoso RN - 06/01/2023 1:50 PM EST Please take these discharge instructions to your primary care doctor follow appointment to show them,keep them for your reference and refer to them often for follow up appointments.It is best to write your appointments on a personal calendar so you do not miss them,call if you need to change any appointments please. Education: What are the most common symptoms of stroke? The following are the most common symptoms of stroke. However, each individual may experience symptoms differently. If any of these symptoms are present, call 911 (or your local ambulance service) immediately. Treatment is most effective when started immediately. Symptoms may be sudden and include: -Weakness or numbness of the face, arm, or leg, especially on one side of the body -Confusion or difficulty speaking or understanding -Problems with vision such as dimness or loss of vision in one or both eyes -Dizziness or problems with balance or coordination -Problems with movement or walking -Severe headaches with no other known cause, especially if sudden onset All of the above warning signs may not occur with each stroke. Do not ignore any of the warning signs, even if they go away - take action immediately. The symptoms of stroke may resemble other medical conditions or problems. Always consult your physician for a diagnosis We have provided both written and verbal education to the patient and family regarding ischemic and hemorrhagic strokes. We have discussed the warning signs/symptoms as well as causes of stroke. We have discussed the importance of activating 911/EMS in the event of these symptoms. We have reviewed the patient's personal risk factors as well as education on reducing these risk factors. [facility] Personalized Stroke Treatment Plan My Stroke Type: [] Ischemic Stroke (Blockage of blood flow to the brain) [x] Hemorrhagic Stroke (Bleeding in the brain) [] TIA- Transient Ischemic Attack (mini-stroke) My Risk Factors Include: [] High Blood Pressure [] Diabetes [x] High Cholesterol [] Heart Disease [] Atrial Fibrillation (Irregular Heart Rate) [] Smoking [] Obesity [] Clotting Disorder [] Alcohol Abuse [] Drug Abuse [] Prior History [] Family History [] Obstructive Sleep Apnea My Follow-Up Treatment Goals: [] Blood Pressure < 140/90 [] Stop Smoking Immediately [] LDL < 70 [] HgA1C levels <7% [] Decrease BMI to <25 [x] Take all ordered medications [] Avoid non-prescription or over the counter medication not cleared by your physician [x] Limit Alcohol use to no more than 1 drink per day for females and 2 drinks per day for males [x] Do not drive until cleared [x] Follow up with PCP within a week of discharge to home [x] Follow-up with Neurovascular [x] Follow-up with Occupational,physical and speech therapy if ordered [x] Watch out for depression and seek treatment if needed CONTACTS FOR NEUROVASCULAR SERVICE: - You may call your neurovascular doctors office at [phone], if you have questions between 8:30 am and 4:30 pm. - For off hours or the weekend you may call the office or the hospital well reactivator operator at and ask for the stroke resident farm demonstrator to be paged. - If you have any questions or needs, please call Ramonita UMAÑA, RN, stroke police academy program coordinator at [phone] Sun-Sun from 11-06. ? Any questions concerning your discharge instructions please call Case Management Office [phone] Patient Stroke Resources: [facility] Stroke Support The [facility] Stroke Support Group is for stroke survivors, friends, and family members. Meets on the Sunday of each month from 6:30pm-7:30pm at [facility] ([address]; [place] [address]). Contact Diana Dawkins, at [phone] or [email or web address]. If you are outside of the [place] area, contact The [place] [employer] at www.strokeassociation.org or 3-098-7-stroke, or for supports groups in your area. You may also refer to the Stroke Education booklet you received as part of your stroke education while you were a patient for additional resources. Additional Contacts: Evening and Weekend Contacts If you have questions or concerns during evening, weekend, or holiday hours, please call: -[facility] and [facility] well reactivator operator at [phone]. -[facility] well reactivator operator at [phone] Ask the well reactivator operator to page the on-call doctor for Neurovascular service, they were responsible for your care while you were in the hospital. If you having an emergency, call 911. *In the event of an Emergency: If you have a physical or psychiatric emergency call 911 or go to your local emergency department. You should also call your outpatient provider's emergency number. Other reference numbers: [facility] Intake Office at [phone]; [facility] at 371-257-1440; or Suicide Prevention Hotline at 044-489-4133. *Helpful phone numbers: Free Crisis Hotline: 0-784-397-HSXX ( ) Suicide Hotline: 998.271.2478 Seniors Suicide Hotline: 702.370.4920 [facility] Youth: 857.698.2905 Mental Health of [place]: 327.672.6221 (free counseling) [facility] Access Hotline: 946-327-JHTM (640-469-1691) 24-hour crisis text hotline: Text the word 4hope to 428-278 for crisis support. Texting this number is free if you have Verizon, T-Mobile, AT[employer] or Sprint. [facility] Financial Assistance: If you want to learn more about these programs, please call .There are three programs to help you with the cost of your medical care: Medicaid, Hospital Care Assurance Program (HCAP) & ya If you are without Insurance and believe you may qualify for Medicaid/public assistance: [facility] Department of Job and Family Services can now process [place] (TANF), food (SNAP) and Medicaid Applications over the phone. Please call [phone] (5371) and apply over the phone or apply online at www.benefits.[place].gov. Sunday-Sunday 8am-12pm noon. Medication Assistance Programs [employer] members can buy 100+ common prescriptions for FREE, $3 or $6. Annual membership is $36 for individuals and $72 for families (up to 6 people, including pets). Sign up online or enroll at your nearest pharmacy! -[employer], web site can provide a significant number of coupons for medications at a much lower velasquez. Zina Pinedo - 06/01/2023 1:49 PM EST Know your medicines Make sure you know why you are taking each medicine. Make a master list of all your medicines. Write down the medicine names and doctors' names. Include doses and side effects too. And write down why you take each medicine. Include all prescription and jmgr-zzf-larsxvq medicines, vitamins, and supplements. Keep this list up to date. Take a copy to each doctor visit. Know when you will run out of each medicine. Ask your pharmacist if there are ways the drugstore can remind you to refill your medicines so you do not run out. Write refill reminders on your calendar. Don't wait until you have a few pills left. Ask your pharmacist to plan your refills so that you can crop picker all your medicines at the same time. This can mean fewer trips to the drugstore. If we have prescribed you a new medication during your stay, please contact with your primary physician for refills SQUEZ Fragoso RN - 06/01/2023 1:49 PM EST Activity -- Please follow these instructions: - Advance your activity as you can tolerate - You may walk all you want. You may go up and down the steps. Use the railing for support - It is normal for your energy level and sleep patterns to change after a stroke - Take rest periods during the day as needed - Complete recovery may take several weeks, months, up to a year. Patience is carroll. Communication Strategies - Decrease distractions - Write down important information for improved recall SQUEZ Pinedo - 06/01/2023 1:50 PM EST Eating a Mediterranean-style diet, which is rich in fruits and vegetables, lean meats, and nuts, may help women over 40 reduce the risk of stroke, according to a study published in the journal Stroke. The study enrolled more than 20,000 adults, ages 40 to 77, who were asked to record what they ate in a seven-day diet diary. Researchers then compared their diet and their stroke risk over a 17-year period. People in the study whose eating most closely resembled the Mediterranean-style diet had a lower risk of stroke compared with other participants in the study. For adults over all, the risk was 17% lower, but the benefit was far larger in women than in men -- 22% reduced risk for women versus 6% for men. Melony Madsen MD - 06/01/2023 1:50 PM EST Notify Your Doctor if you have any of the following: NEUROLOGICAL CHANGES-- Change in alertness Increased sleepiness Nausea and vomiting New onset of numbness or weakness in arms or legs New problems with your bowels or bladder New or worse problems with balance or walking Seizures, new or worsening UNRELIEVED HEADACHE PAIN-- New or increased pain unrelieved with pain medications Pain associated with nausea and vomiting Pain associated with other symptoms QUESTIONS OR PROBLEMS-- Any questions or problems that you are unsure about Deep Vein Thrombosis Symptoms Call your doctor or nurse right away if you have any signs of blood clots such as -Tender, swollen or reddened areas anywhere in your leg. -Numbness or tingling in your lower leg or calf, or at the top of your leg or groin -Skin on you leg looks pale or blue or feels cold to touch -Chest pain or have trouble breathing -Fever or chills documented in this encounter [facility] 06-01-2023 History of Present illness Narrative Stroke Attending Addendum (Date of service 06/01/23): I have interviewed and examined patient. I have reviewed Dr. Melony Madsen's note and agree with the following highlights, additions, and addendums: The patient is a 67 y.o. right-handed female with a history of GERD, hyperlipidemia, hypothyroidism, and osteoarthritis who family reports 2 weeks ago developed symptoms of confusion. Then 4 days ago the confusion worsened. Patient leaves ran into doors twice, left doors open, not going on green light while driving, not able to read the clock or do math. 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 She has had headache for the last 4 days. At the Outside [facility] CT brain showed a right frontal intracerebral hemorrhage with edema. She was transferred to [facility] ER and on arrival NIHSS was 0. CT brain shows stable 3cm right frontal intracerebral hemorrhage. CT angiogram head/neck negative. The patient was admitted to the Stroke team. MRI brain diffusion weighted images negative, MRI shows 2 right frontal ICH- an acute one and a subacute one medially (seen on SWI but not on CT), some enhancement around the subacute hemorrhage. LDL 74, HgbA1c 6.0. CT chest/abd/pelvis negative. NSG consulted. +BERUMEN x 4 days, +N/V. Interval Overnight History: 139/75. No BERUMEN currently. Neurological examination shows mild confusion (difficulty with math) otherwise nonfocal exam, NIHSS-0. Assessment/Plan: Subacute right frontal Intracerebral hemorrhage Post-bleed day 2 weeks. TTE ordered. Unclear etiology, but occult malignancy work-up negative thus far. Continue Blood pressure control. DVT prophylaxis with SCDs and start lovenox SQ. PT/OT consults. Repeat MRI brain with contrast in 6-8 weeks and follow-up in stroke fellow clinic after MRI. Recommend no driving. Alyssa Schultz MD Discharge Planning Patient Assessment Admission Assessment Patient Assessment Completed: Initial Anticipated discharge disposition: Home Reason for Admission: Stroke Workup Is the patient able to participate in the assessment?: Yes Information source: Patient Demographics Verified and Updated: Yes Has the patient been admitted to any hospital in the last 30 days?: No Advanced Care Planning Has the patient completed Advance Directives?: Not Completed Referral to Social Work for Advance Care Planning? : Patient Declines Legal Next of Kin Does the patient have a Guardian?: No Spouse: Yes Name and Contact information: Enmanuel Vivar - [phone] Adult Child([place]), List All Adult Children: Yes Name and Contact information: Mariely ChelseyJose JAleks - [phone] Would you like to add additional adult children?: Yes Name and Contact information: Artur Haley - [phone] Outpatient Providers Does patient have a primary care physician? : No Is the patient agreeable to a referral or information on a primary care physician?: Patient Agreeable Referral for primary care physician made to: Local PCP office contacted Does the patient follow any specialists?: No Reviewed and updated Care Team?: Yes Patient Care Team: Paulo Shankar MD as PCP - General (Internal Medicine) Environment/Caregivers Is the patient from a facility or long term?: No Patient lives with: Spouse or Partner Living Environment: House Patient Caregiving Responsibilities: Self Patient-identified caregiver/support network: Family Who does the patient identify as a teachable caregiver(s)?: Child(braulio) - Independent, Spouse or Partner Services Does the patient use a home health or hospice agency?: No Current with dialysis?: No Does the patient use any community programs or services?: No Does patient use DME? : none Does the patient use oxygen?: No Does patient use medical supplies? : none Anticipated Changes Related to Illness/Injury? : No Initial ADLs Prior to Arrival What is the patient's baseline physical functioning prior to this acute illness?: independent What is the patient's baseline cognitive functioning prior to this acute illness?: independent Is the patient's baseline functioning changed by this acute illness? : Yes Changes observed : Physical, Cognitive Concerns with patient being able to care for themselves at home? : No Are there therapy or specialists consults?: Yes Select consult type: PT, OT Does the patient's home require any home modifications for discharge? : No CM to recommend therapy or other consults? : Yes Select consult type: PT, OT Medication Management Does the patient have prescription insurance coverage? : Yes Is the patient on Anticoagulation? : No [id number] - [place] [address] [address] [facility] [address] [address] Certified Pharmacy Tech Does the patient or telephone services sales representative express financial concerns? : No Employed?: Retired Coping/Stress Concerns about patient s coping and stress?: No Concerns about patient s caregiver s coping and stress?: No Values and Beliefs Cultural or hinduism practices that may impact discharge planning and/or medical care?: No Initial Discharge Planning Anticipated discharge disposition: Home Transportation Available for Discharge: Family or Friend Anticipated DME: tub transfer bench (OT provided patient a picture of recommended DME) Anticipated Services at Discharge: DME, Physical Therapy, Occupational Therapy, Outpatient follow up Patient Assessment Completed: Initial Expected Discharge Date: 06/04/2023 Discharge Planning Summary Patient not established with a PCP at this time. Patient stated she wanted to established care with Dr Paulo Shaknar. CM reached out to Dr Shankar's office and there were able to schedule her initital appointment for Sunday at 140pm. CM updated patient at bedside and added appointment to her AVS. Case Management Plan Current recommendation is for outpatient Pt/OT and driving evaluation. CM will add Driving program information to her AVS. Addendum:3:09 PM Patient and family prefer arranging own out patient therapy, referrals will be provided to patient at discharge. CAYDEN Villalpando, CORPORATE TRAVEL MANAGER Oracle Applications Developer Available by Secure Chat Acute Care Speech-Language Pathology Note Received consult for swallow evaluation. However, pt passed [place] Swallow Screening by nursing. Swallow eval by RADIO OFFICER will not be completed at this time unless this service notified of change in status or re-consult for swallow eval placed. RADIO OFFICER to proceed with speech/language/cognitive evaluation per order. Thank you. No charge Melony Jurado [facility]-RADIO OFFICER Speech-Language Pathologist License Number [id number] Pager: Available on Secure Chat Acute Care RADIO OFFICER Speech/Language/Cognitive Evaluation Best mode of Communication: spoken language (regular speech) Communication Strategies: - Decrease distractions - Write down important information for improved recall Discharge Recommendations: Based on the below outcome measures/assessment score(s) and RADIO OFFICER clinical judgment, discharge destination recommendation is: Home with Outpatient Rehab Services addressing cognitive-communication deficits. Barriers to discharge home: Cognitive impairments that impact safety and independence Supporting factors for discharge setting: Impaired cognitive skills limiting safety/insight, Impaired cognitive skills limiting functional problem solving in immediate environment, Impaired cognitive skills limiting independence Acute RADIO OFFICER Outcomes Tracking Communicate basic wants and needs?: yes Demo insight/appreciation of deficits?: yes Complete basic problem solving?: yes Current therapy frequency recommendation in acute: Speech/Lang/Cog Therapy Frequency: 2 times a week Clinical Impression: Kaia Haley presents with mild level cognitive-communication deficits, s/p subacute right frontal intracerebral hemorrhage of unclear etiology. Deficits characterized by impaired immediate, working, and delayed memory, problem solving, reasoning, and executive-function skills. Pt also c/o anomia during conversation, which was not observed this date - though RADIO OFFICER to monitor. These deficits result in functional limitations in ability to interact with her home environment independently and safely to OF. Skilled speech therapy services warranted during admission and at discharge. Patient Instruction/Education this session: Role of RADIO OFFICER, recommendation for treatment during admission and upon discharge, recommendation for family assist/support, recommendation for external memory tools. Pt and family verbalizing understanding/agreement. Plan for next session: Teaching/train external/internal memory strategies, monitor for word-finding errors and teach strategies as necessary, initiate problem solving and executive function goals Subjective: Pt awake/alert with spouse, sister, and adult children x2 present. Pt sitting upright in chair, pleasant/coopeartive. Pt demonstrating insight/awareness and adequate participation. No complaint of pain at the beginning/end of session. Pt's family describes difficulty with time management and basic math (adding tip to restaurant bill), burning montes on stove with no food item and pt confused about location of food item, and slow cognitive processing. Pt c/o word-finding difficulty (anomia with no paraphasias) and feeling like she is in a fog. Pt and family report symptoms have improved somewhat since onset. Patient Safety Communication Prior to Visit: Nursing Pain: General Pain Documentation (Adult, OB, Peds) Presence of Pain: denies pain/discomfort Presence of Pain Score (Auto-calculated): 0 Patient History Comments: Kaia Haley is a 67 y.o. female who presents with subacute right frontal intracerebral hemorrhage, post-bleed day 2 weeks, of unclear etiology, but occult malignancy work-up negative thus far. Prior RADIO OFFICER History: None per chart review and pt interview. 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 Pt enjoys playing pickleball and meeting friends for dinners. Respiratory Status: O2 Sat (%): 96 % (06/01 1209) O2 Device: room air (06/01 1057) EXPRESSIVE LANGUAGE: Intact (Pt reporting word-finding difficulty in conversation, which was not noted in today's assessment. RADIO OFFICER to monitor) Task: Imitates Gestures Intact Automatic Speech Intact Phrase Completion Confrontation Naming Intact Answering 'wh' Questions Intact Repetition Intact Verbalize Basic Wants and Needs Intact Functional Participation in Conversation Intact RECEPTIVE LANGUAGE: Intact Task: Identify Functional Objects Follow 1-Step Commands Intact Follow 2+ Step Commands Intact Answers Basic Y/N Questions Intact Answers Complex Y/N Questions Intact Conversational Comprehension Intact READING: (DNT) Task: Letter Identification Single Words Aloud Single Word Comprehension Sentence Comprehension Functional Environmental Reading WRITING: (DNT) Task: Copying Writing to Dictation Writing Biographical Information Writing Single Words Writing Sentences Functional Writing SOCIAL INTERACTION/PRAGMATICS: Intact Task: Initiates Conversation Takes Turns in Communication Intact Maintains Eye Contact Intact Maintains Topic Intact Shifts Topics Appropriately Intact Affect Intact Responds Appropriately to Questions Intact COGNITION: Impaired Task: Arousal/Alertness Appropriate responses to stimuli Orientation Level Oriented X4 Safety Judgment Good awareness of safety precautions Awareness of Errors Decreased awareness of errors Deficits Fully aware of deficits Attention Span Appears intact Memory Decreased short term memory (Decreased immediate memory/working memory) Problem Solving Assistance required to identify errors made, Assistance required to generate solutions, Assistance required to implement solutions Cognition Comments MOTOR SPEECH TASKS: Intact Task: Imitate Motor Movements Imitate Sounds and Words Intact Rapid Alternating Movements Speech Intelligibility Intact Fluency Intact Saliva Management Intact VOCAL PARAMETERS: Intact Task: Breath Support Intact Coordination of Respiration and Phonation Coordination of respiration and phonation: Intact Duration of Phonation Pitch Control Loudness Intact Vocal Quality WDL Subjective Voice Evaluation Grade of dysphonia (G): 0 Roughness (R): 0 Breathiness (B): 0 Asthenia (A): 0 Strain (S): 0 RADIO OFFICER Outcomes: RADIO OFFICER Outcomes / Standardized Measures Score The Orientation Log (O-Log) & The Cognitive Log (Cog-Log) The Orientation Log (O-Log) is designed to be a quick quantitative measure of orientational status for use at bedside with rehabilitation inpatients. Place, time, and situational (Etiology/Event + Pathology/Deficits) domains are assessed. Patient responses are scored according to the following criteria: 3 = correct spontaneously or upon first free recall attempt; 2 = correct upon logical cueing (e.g., That was yesterday, so today must be ); 1 = correct upon multiple choice or phonemic cuing; and 0 = incorrect despite cueing, inappropriate response, or unable to respond. Patient scored 29/30 this date. The Cognitive Log (Cog-Log) is designed to be a quick quantitative measure of cognition for use at bedside with rehabilitation patients. It is intended for individuals who have achieved consistent accurate orientation, such as measured by the Orientation Log (O-Log). The Cog-Log can be used to document cognitive progress on a daily basis, in the areas of immediate memory, reasoning, thought organization and attention. All items are scored from 0 to 3 for a total possible score of 30, which can be graphed for quick reference. Patient scored this date. Orientation Log City: correct spontaneously or upon first free recall attempt Kind of Place: correct spontaneously or upon first free recall attempt Name of Hospital: correct upon logical cueing Month: correct spontaneously or upon first free recall attempt Date: correct spontaneously or upon first free recall attempt Year: correct spontaneously or upon first free recall attempt Day of Week: correct spontaneously or upon first free recall attempt Clock Time: correct spontaneously or upon first free recall attempt Etiology / Event: correct spontaneously or upon first free recall attempt Pathology Deficits: correct spontaneously or upon first free recall attempt Total Score: 29 Cognitive Log Date: points given for a spontaneous correct response Time: points given for a spontaneous correct response Name of Hospital: points for a correct response with a logical cue Repeat Address: no correct repetitions 20-1: without error Months Reversed: one error 30 Seconds: 25-35 seconds [id number]: three correct repetitions Go / No-Go: correct response on each trial Address Recall: partial spontaneous recall Total Score: 24 Acute RADIO OFFICER Goals Plan of Care by Melony Jurado RADIO OFFICER at 06/01/2023 10:57 AM Version 1 of Problem: RADIO OFFICER - Cognition Goal: Memory: Strategy Training - Patient will demonstrate understanding of external and internal memory strategies with minimal, verbal cues in order to facilitate improvements with memory for greater level of independence with IADLs Outcome: Ongoing Goal: IADL Problem Solving - Patient will complete multistage problem-solving for daily living math, job related tasks and/or home skills in structured therapy tasks with minimal, verbal cues with 90% accuracy or greater to facilitate improved independence Outcome: Ongoing Goal: Executive Function - Patient will complete functional executive functioning tasks (e.g., sequencing of ADLs, planning) with 90% of accuracy or greater given minimal, verbal cues to improve functional independence Outcome: Ongoing Problem: RADIO OFFICER - Language Goal: Word Retrieval Strategies for Conversation - Patient will state and/or demonstrate understanding of trained strategies targeting anomia with no more than set-up cues to use strategies during functional conversation to reduce communication breakdowns Outcome: Ongoing RADIO OFFICER Co-Eval/Treatment Information Co-evaluation/co-treatment performed?: No simultaneous skilled care performed Speech Language Pathologist: NASRA Amado Time In: 1057 Time Out: 1136 Total Visit Time: 39 minutes Total Treatment Time (skilled, billable minutes): 39 minutes Additional Session Details Assisted by during session: n/a Non-billable assistance during session: n/a PPE used during patient interaction: facemask Patient location/status at end of session: chair Patient alarms at end of session: none altered Needs in reach. RADIO OFFICER Evaluation and Treatment Time Speech Eval - Sound Production W/Lang Comp and Exp [id number]: 39 Upon discontinuation of Acute Care Speech Therapy Services or patient discharge from the hospital this note represents the current Speech Therapy Discharge Summary Acute Occupational Therapy Evaluation Prior to Admission AM-PAC Score: PRIOR LEVEL AM-PAC Activity Raw Score: 24 PRIOR LEVEL AM-PAC Mobility Raw Score: 24 Current AM-PAC score(s): CURRENT AM-PAC Mobility Raw Score: 20 CURRENT AM-PAC Activity Raw Score: 21 Based on the above AM-PAC score(s) and OT clinical judgment, discharge destination recommendation is: Home with spouse supervision/assist and Outpatient Rehab Services (Recommend OT driving evaluation) Barriers to discharge home: Patient needs assistance with IADLs (see note below), Patient needs assistance with medication management, Patient needs assistance with ADLs Mobility equipment available at home: (pt sister states she has walkers in basement from mother, but unable to recall what kind.) ADL equipment available at home: elevated toilet seat Equipment recommendations for discharge: tub bench Current therapy frequency recommendation(s) in acute: 5 times a week Precautions and Weightbearing Status: OT Existing Precautions/Restrictions: no known precautions/restrictions Telemetry Patient Safety Communication Prior to Visit: Nursing Subjective: Pt received up in chair with sister visiting. Agreeable to OT Pain: General Pain Documentation (Adult, OB, Peds) Presence of Pain: denies pain/discomfort Presence of Pain Score (Auto-calculated): 0 Home Setting Residence: House Lives With: spouse, child(braulio), other (see comments) (3 grandchildren 4, 7, 9 years old) First floor setup: tub shower Number of stairs to enter home: 5 Number of stairs in home: 0 Stair Railings at Home: entry - no rail Mobility Equipment Available: (pt sister states she has walkers in basement from mother, but unable to recall what kind.) ADL Equipment Available: elevated toilet seat Previous Level of Function Prior level ADL Overview: Independent with all ADLs Bed Mobility/Transfers: independent Ambulation Skills: independent Assistive Device: none used Level of Ambulation: community Prior Level of Function Details: Pt required seated rest breaks on stool during cooking. Pt reported recent prolonged blinking during driving and found herself off the side of the road. Pt agrees that /daughter should and will be driving her from now on. IADL History IADLs: independent Primary Language: Hungarian Home Management Skills: independent Medication Management: independent Meal Prep Responsibility: Primary Laundry Responsibility: Primary Objective/Observation: Vitals/Vitals Responses to Treatment:VSS O2 Device: room air Vision Screen Currently wearing corrective lenses: No Visual Impairments Observed?: No Speech Speech: no gross deficits noted Successful Methods (Communication Strategies): verbal speech Hearing Hearing: no gross deficits noted Cognition Overall Cognitive Status: (At risk) Arousal/Alertness: Appropriate responses to stimuli Orientation Level: Oriented to person, Oriented to place, Oriented to time Following Commands: Follows one step commands without difficulty Safety Judgment: Decreased awareness of need for assistance Awareness of Errors: Assistance required to correct errors made Deficits: Decreased awareness of deficits Attention Span: Difficulty dividing attention Cognition Comments: Fair processing speed ADLs assessment: ADL Assessment: LE Dressing Deficit, Bathing Deficit Eating Assistance: Independent Eating Location: chair Grooming Assistance: Independent Grooming Location: standing at sink Bathing Assistance: Minimal UE Dressing Assistance: Independent LE Dressing Assistance: Modified independent LE Dressing Location: seated in chair LE Dressing Deficit: Don/doff R sock, Don/doff L sock LE Dressing Skilled Rationale (Verbal/Tactile/Visual/Demonstra tion): Technique of activity, Adaptive equipment training LE Dressing Intervention/Details: Pt provided with leather roller and sock aide Toilet Assistance: Stand by Toileting Location: toilet Extremity Assessments: RUE Assessment RUE Assessment: Within Functional Limits LUE Assessment LUE Assessment: Within Functional Limits Balance: Sitting Balance Static Sitting-Level of Assistance: Independent Dynamic Sitting-Level of Assistance: Independent Standing Balance Static Standing-Level of Assistance: Stand-by assist Dynamic Standing-Level of Assistance: Stand-by assist Standing-Balance Support: Gait belt Skilled Rationale: Verbal cues, Tactile cues, Full extension to upright positioning/posture, Cues for increased safety Standing Balance Skilled Intervention/Details: Fair quality of gait Neuro: Sensation Overall Sensation: Intact Sensation Comments: Denies numbness/tingling Proprioception Proprioception: intact Gross Coordination Gross Coordination: bilat UE intact Fine Motor Coordination Additional Documentation: (WFL manipulation skills) Skin and Edema: Skin Integrity Skin Integrity Description: WFL Edema Edema: other (see comments) (Obese female) Mobility Assessment: Supine to Sit Mobility [place] Level: Supine->Sit: not tested ([employer] hair) Transfer Assessment: Sit to Stand Transfer [place] Level: Sit->Stand: stand-by assist Physical Assist: Sit->Stand: (1 person) Assistive Device: Sit->Stand: gait belt, armed chair Skilled Rationale: Positioning, Hand placement, Verbal cues Skilled Intervention/Details: Sit->Stand: Increased time with transition Stand to Sit Transfer [place] Level: Stand->Sit: stand-by assist Physical Assist: Stand->Sit: (1 person) Assistive Device: Stand->Sit: gait belt, armed chair Skilled Rationale: Hand placement Functional Mobility: Functional Mobility [place] Level: Functional Mobility/Gait: stand-by assist Physical Assist: Functional Mobility/Gait: (1 person) Assistive Device: Functional Mobility/Gait: gait belt Functional Mobility Distance: Distance needed to access restroom, Distance needed for common household mobility Ambulation Distance (Feet): 150 Functional Mobility Deficits: Activity tolerance, Balance, Attention, Slowed gait speed, Generalized weakness, Decreased step length Functional Mobility Skilled Rationale: Proper pacing, Tactile cues, Upright gaze/neck extension, Verbal cues Skilled Intervention/Details - Functional Mobility/Gait: Pt with slowed gait and LLE swing Wheelchair Assessment Patient currently uses wheelchair?: No Outcome Score(s): CURRENT -[facility] Daily Activity Inpatient Short Form Putting on/Taking Off Lower Body Clothin - A Little Assistance Bathin - A Little Assistance Toiletin - A Little Assistance Putting on/Taking Off Upper Body Clothin - No Assistance Groomin - No Assistance Eatin - No Assistance CURRENT AM-[facility] Activity Raw Score: 21 CURRENT -[facility] Activity Functional Limitation/Modifier: 32.79% Currently Impaired in Daily Activity - CJ Interventions: Intervention 1 Intervention Name: Modified LB ADLs Details: OT providing extensive education to patient regarding discharge recommendations & techniques for safe/efficient performance of functional transfers/activities with current deficits. Specifically, therapist provided education on the following topics. Pt verbalized understanding of all education (engaged in discussion). 1. Pacing strategies with all transitional movements for fall prevention 2. Use of adaptive equipment with ADL's (OT provided Farm Instructor/long shoe horn and sock aide) 3. Benefit of Tub bench to improve safety with bathing seated with use of a hand-held shower hose for ease. 4. Benefit of night light for safety with navigation/mobility to bathroom 5. Removing throw rugs and other tripping hazards, modifying home ADL techniques to maximize independence, having someone place needed items at waist height to reduce bending and reaching, etc. Pt engaged in conversation and verbalized understanding. Assessment & Plan: 67 y.o. female with PMH of GERD, HLD, hypothyroidism, OA, spinal stenosis admitted with confusion for 2-3 weeks as Stroke alert. Pt with finding of Subacute right frontal Intracerebral hemorrhage and seen for therapy evaluation related to strength and balance deficits impacting mobility and Occupational performance. Exam findings include impairments in: aerobic capacity, attention, balance, cognitive impairments, endurance, joint integrity and mobility, posture, strength. These impairments contribute to occupational performance limitations including bathing, functional mobility, home management tasks, driving/transportation. The following factors impact the plan of care: None Patient will benefit from skilled occupational therapy to address these impairments, occupational performance limitations, and participation restrictions. Patient's rehab potential is: good. Planned Therapy Interventions (OT Eval): ADL retraining, IADL retraining, balance training, strengthening, functional activity tolerance Patient Instruction/Education this session: Patient and Sister was provided stroke specific education on Bathing, DME recommendations use/training, and ROM/Therapeutic exercises. Education provided in Verbal, Demonstration, and Handout format, and demonstration of understanding with appropriate follow-up questions. All questions answered. Plan for next session: Modified ADL/IADLS Acute OT Goals Plan of Care by Stephy Causey OT at 06/01/2023 9:25 AM Version 1 of 1 Problem: OT - ADLs Goal: Grooming - Patient will complete grooming in standing with independence for improved ability to safely complete ADLs. Outcome: Ongoing Goal: Toileting - Patient will complete toileting task with independence and adaptive equipment as needed for improved ability to safely complete self-care activities. Outcome: Ongoing Goal: Bathing - Patient will perform full body bathing routine with modified independence while seated for improved ability to complete self-care activities Outcome: Ongoing Problem: OT - Cognition Goal: Cognition Home Maintenance - Patient will complete simulated home maintenance task: medication management, finance management, and meal prep with supervision and 100% accuracy. Outcome: Ongoing Problem: OT - Strength/ROM Goal: Strength/ROM ADL Participation - Patient will participate in UE exercise program with independence to prevent deconditioning while in hospital and to max UE ROM/Coordination/strength for ADLs. Outcome: Ongoing Problem: OT - Other Goal: Energy Conservation Task Recall - Patient will independently recall 3 energy conservation principles to increase functional activity tolerance during ADLs, IADLs, and functional mobility tasks. Outcome: Ongoing OT treatment consisted of the following to work and progress towards the above goal(s): OT Evaluation and Treatment Time OT Evaluation (Moderate) Time Entry: 14 Self Care/Home Management (ADLs) Time Entry: 10 Evaluating Therapist: Stephy Causey OT Additional Details: OT Co-Eval/Treatment Information Co-evaluation/co-treatment performed?: Yes, simultaneous billable skilled care was necessary due to medical complexity and functional deficits Other discipline: PT Rationale for need to co-eval/treat: postural control (Initial safe mobilization assessment) OT Evaluation Complexity Occupational Profile and Client History: Moderate - expanded history Assessment of Occupational Performance: Moderate (3-5 performance deficits) Clinical Decision/Performance Deficits: Moderate (detailed assessments w/several treatment options) Time In: 900 Time Out: 924 Total Visit Time: 24 minutes Total Treatment Time (skilled, billable minutes): 24 minutes PPE used during patient interaction: facemask, gloves Patient location at end of session: chair Alarms on at end of session: RN aware Needs in reach. Upon discontinuation of Acute Care Occupational Therapy Services or patient discharge from the hospital this note represents the current Occupational Therapy Discharge Summary. Acute Physical Therapy Evaluation Prior to Admission AMPA score(s): PRIOR LEVEL AM-PAC Mobility Raw Score: 24 Current AM-PAC score(s): CURRENT AM-PAC Mobility Raw Score: 20 Based on the above AM-PAC score(s) and PT clinical judgment, patient is a good candidate for discharge to Home with Outpatient Rehab Services Barriers to discharge home: None Mobility equipment available at home: (pt sister states she has walkers in basement from mother, but unable to recall what kind.) ADL equipment available at home: elevated toilet seat Equipment needed for discharge: to be determined Current therapy frequency recommendation in acute: Therapy Frequency: 3 times a week Precautions and Weightbearing Status: Existing Precautions/Restrictions: fall Telemetry Patient Safety Communication Prior to Visit: Nursing Subjective: Pt agreeable to PT. Pt sister present in room during session. 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 Pt reports recent visits to PT for spinal stenosis. Pain: General Pain Documentation (Adult, OB, Peds) Presence of Pain: denies pain/discomfort Presence of Pain Score (Auto-calculated): 0 Home Setting Residence: House Lives With: spouse, child(braulio), other (see comments) (3 grandchildren 4, 7, 9 years old) First floor setup: tub shower Number of stairs to enter home: 5 Number of stairs in home: 0 Stair Railings at Home: entry - no rail Mobility Equipment Available: (pt sister states she has walkers in basement from mother, but unable to recall what kind.) ADL Equipment Available: elevated toilet seat Previous Level of Function Prior level ADL Overview: Independent with all ADLs Bed Mobility/Transfers: independent Ambulation Skills: independent Assistive Device: none used Level of Ambulation: community Prior Level of Function Details: Pt required seated rest breaks on stool during cooking. Pt reported recent prolonged blinking during driving and found herself off the side of [facility] [address]. Pt agrees that /daughter should and will be driving her from now on. Objective/Observation: Vitals/Vitals Responses to Treatment: No adverse response to PT treatment. O2 Device: room air Cognition Overall Cognitive Status: Impaired Arousal/Alertness: Appropriate responses to stimuli Orientation Level: Oriented X4 Following Commands: Follows one step commands without difficulty Safety Judgment: Decreased awareness of need for safety Awareness of Errors: Assistance required to identify errors made Deficits: Decreased awareness of deficits Cognition Comments: Pt complains of recent difficulty processing information, such as correctly reading a clock. Vision Screen Currently wearing corrective lenses: No Speech Speech: no gross deficits noted Hearing Hearing: no gross deficits noted Extremity Assessments: RLE Assessment RLE Assessment: Within Functional Limits Right LE Assessment Details: 4+/5 for hip flexion, ankle plantarflexion/dorsiflexion, knee flexion/extension LLE Assessment LLE Assessment: Within Functional Limits Left LE Assessment Details: 4+/5 for hip flexion, ankle plantarflexion/dorsiflexion, knee flexion/extension Sensation Overall Sensation: Intact Mobility Assessment: Balance: Sitting Balance Static Sitting-Level of Assistance: Supervision Sitting Balance Skilled Intervention/Details: pt supervision for sitting in recliner. Standing Balance Static Standing-Level of Assistance: Stand-by assist Standing-Balance Support: Gait belt Standing Balance Skilled Intervention/Details: pt SBA for standing balance. Transfer Assessment: Sit to Stand Transfer [place] Level: Sit->Stand: stand-by assist Assistive Device: Sit->Stand: gait belt Skilled Rationale: Verbal cues, Hand placement Skilled Intervention/Details: Sit->Stand: SBA for sit to stand. Verbal cues provided for hand placement. Stand to Sit Transfer [place] Level: Stand->Sit: stand-by assist Assistive Device: Stand->Sit: gait belt Skilled Rationale: Verbal cues, Controlled descent for sitting Skilled Intervention/Details: Stand->Sit: SBA for stand to sit. verbal cues for controlled descent. Gait/Functional Mobility: Gait Assessment [place] Level: Gait: stand-by assist Assistive Device: Gait: gait belt Ambulation Distance (Feet): 200 Gait Deviations Identified: left (decreased LLE foot clearance) Gait Skilled Rationale: verbal, increase foot clearance Skilled Intervention/Details - Gait: verbal cues provided for increase in LLE foot clearance. pt needed assist for identification of slight LLE foot drag. Initial improvement noted with cues. No LOB throughout ambulation. Stairs: Stairs Assessment [place] Level: Stair Negotiation: contact guard assist Assistive Device: Stair Negotiation: gait belt, right rail (ascending) Number of stairs: 10 Stairs Skilled Rationale: verbal, nonreciprocal pattern Skilled Intervention/Details - Stairs: pt educated on nonreciprocal pattern for pain management and safety. Outcome Score(s): CURRENT AM-PAC Basic Mobility Inpatient Short Form Turning over in bed: 4 - No Assistance Sitting/standing from chair: 3 - A Little Assistance Moving from lying on back to sittin - No Assistance Moving to and from bed to chair: 3 - A Little Assistance Walk in hospital room: 3 - A Little Assistance Climbing 3-5 steps with a railin - A Little Assistance CURRENT -[facility] Mobility Raw Score: 20 CURRENT -[facility] Mobility Functional Limitation/Modifier: 35.83% Currently Impaired in Basic Mobility - CJ Interventions: Assessment & Plan: Patient was admitted for Acute R [facility] (per chart review) and seen for therapy evaluation related to functional mobility concerns. Exam findings include impairments in: Balance, Transfers, Gait/Locomotion, Aerobic capacity/endurance. These impairments contribute to functional limitations including Increased fall risk, Decreased functional mobility, Difficulty with bed mobility, Difficulty with transfers. Current clinical presentation is Evolving - changing/inconsistent clinical characteristics (Moderate). Patient history factors impacting Plan Of Care include osteoarthritis (per chart review). Steps to enter home.. Patient will benefit from skilled physical therapy to address these impairments, functional limitations, and participation restrictions and has good rehab potential to achieve therapy goals. Planned Therapy Interventions: balance training, endurance, functional activity tolerance, gait training, neuromuscular re-education, postural re-education, transfer training (stair training) Patient Instruction/Education this session: Patient and pt sister was provided stroke specific education on Discharge recommendations, Recommended caregiver assist levels for safe transfers/functional mobility (education on assist level for stairs), and supervision recommendation (27/11). Education provided in Verbal format, and demonstration of understanding with with verbalized understanding. All questions answered. Plan for next session: standing balance, gait training, stair training. Acute PT Goals Plan of Care by Gladys Clark PT at 06/01/2023 2:17 PM Version 1 of 1 Problem: PT - General Goals Goal: Sit <-> Stand Transfers - Patient will perform sit to/from stand transfers with independence and without an assistive device in order to improve functional mobility and safety. Outcome: Ongoing Goal: Standing Endurance/Balance - Patient will perform standing balance tasks for 10 min with independence and without an assistive device Outcome: Ongoing Goal: Ambulation - Patient will ambulate 300 feet with independence and without an assistive device to improve ability to safely navigate home and community. Outcome: Ongoing Goal: Stairs - Patient will ascend/descend 5 stairs with modified independence, without an assistive device, and no railing(s) to improve ability to safely navigate home and community. Outcome: Ongoing PT treatment consisted of the following to progress towards the above goal(s): PT Evaluation and Treatment Time PT Evaluation (Moderate) Time Entry: Evaluating Therapist: Ilana Kirkpatrick Student PT Additional Details: PT Co-Eval/Treatment Information Co-evaluation/co-treatment performed?: Yes, simultaneous billable skilled care was necessary due to medical complexity and functional deficits Other discipline: OT Rationale for need to co-eval/treat: postural control Co-treatment goal focus: balance, mobility, transfer Evaluation Complexity Components History: Moderate (1-2 personal factors and/or comorbidities) Body Systems Review: Moderate (Addressing a total of 3 or more elements) Clinical Presentation: Evolving - changing/inconsistent clinical characteristics (Moderate) Clinical Decision Making: Moderate Time In: 853 Time Out: 918 Total Visit Time: 25 minutes Total Treatment Time (skilled, billable minutes): 25 minutes Assisted by during session: Gladys Clark PT PPE used during patient interaction: facemask, gloves Patient location at end of session: chair, RN aware Alarms on at end of session: none, RN aware Needs in reach. Upon discontinuation of Acute Care Physical Therapy Services or patient discharge from the hospital this note represents the current Physical Therapy Discharge Summary. Associated attestation - Gladys Clark PT - 06/01/2023 2:21 PM EST I, Gladys Clark PT, provided direct guidance in the room during this patient care session. I attest that all documentation reflects accurate skilled clinical decisions and judgements. Neurovascular Stroke Service Intracerebral Hemorrhage Note IDENTIFYING INFORMATION Kaia Haley MR# [id number] 05/31/2023 HISTORY OF PRESENT ILLNESS Kaia Haley is a 67 y.o. female with a history of with a history of GERD, HLD, hypothyroidism, OA, spinal stenosis who presented with confusion for 2-3 weeks. Stroke alert was called for STAT consultation. NIH on arrival: 0. Per family, patient has been acting confused and unlike her self for the past 2-3 weeks. States pt will read clock incorrectly or will leave doors open. Additionally, would sit at traffic light when its green not recognizing that she should go, unless told to do so. Patient was taken to OSH where CTH showed R frontal IPH with surrounding hypodensity likely corresponding edema. Patient was then transferred to [facility] for further management (no neurosurgery at OSH). Patient denies V/D/N, fever, weight loss, night sweats, previous dx of cancer, blood in stool, change in appetite, fatigue, hematuria, or hemoptysis. INTERVAL HISTORY 05/30: Admitted to [place]. Neurosurgery consulted. Ordered malignancy screen with CT Chest and CT Abdomen/Pelvis. 05/31 Zofran provided for N/V overnight. Repeat CT Head 6h stable. MRI Brain showed prominent acute IPH and subacute hematoma in R frontal lobe with peripheral enhancement, also SAH with mild leptomeningeal enhancement. CT Chest and CT Abdomen/Pelvis did not show definite evidence of primary malignancy or metastatic disease. PHYSICAL EXAM Gen: awake, alert, NAD HEENT: normocephalic, no scalp lesions or tenderness, PERRLA, EOMI Neck: trachea midline, no JVD CV: +S1S2, RRR, no m/r/g Lungs: LCTA bilaterally with equal chest rise Abd: soft, nontender, nondistended, +BS x4 quadrants Extrem: Warm and well perfused, no cyanosis, clubbing, edema, 2+ pulses bilaterally NIHSS Provider NIH Stroke Scale NIH Interval (Provider): daily NIH Level of Conciousness (Provider): 0 NIH LOC Questions (Provider): 0 NIH LOC Commands (Provider): 0 NIH Best Gaze (Provider): 0 NIH Visual (Provider): 0 NIH Facial Palsy (Provider): 0 NIH Left Arm Motor (Provider): 0 NIH Right Arm Motor (Provider): 0 NIH Left Leg Motor (Provider): 0 NIH Right Leg Motor (Provider): 0 NIH Limb Ataxia (Provider): 0 NIH Sensory (Provider): 0 NIH Best Language (Provider): 0 NIH Dysarthria (Provider): 0 NIH Extinction and Inattention (Provider): 0 NIH Total Score (Provider): 0 Intracerebral Hemorrhage Volume Intracerebral Hemorrhage Score Intracerebral Hemorrhage (ICH) Scale Sebastian Coma Scale Points: 0-->GCS 13-15 Age>/=80: 0-->no Infratentorial Origin of Hemorrhage?: 0-->no ICH Volume >/= 30cm(3): 0-->no (less than 30cm(3)) Intraventricular Hemorrhage?: 0-->no ICH Score (Calculated): 0 Score 30 Day Mortality following ICH 0 0% Mortality 1 13% Mortality 2 26% Mortality 3 72% Mortality 4 97% Mortality 5 100% Mortality ASSESSMENT AND PLAN Acute R frontal IPH Subsacute R frontal IPH with corresponding peripheral enhancement Subarachnoid hemorrhage with corresponding mild leptomeningeal enhancement - CT head: Right frontal IPH with cortical SAH with surrounding edema, no MLS - CTA brain/neck: Right frontal lobe mass suggestive of underlying mass - MRI: Acute parenchymal hematoma in right frontal with additional subacute hematoma - SBP < 140 - LDL: 74 - A1C: 6.0 - TTE: pending - Statin therapy: Rosuvastatin 5mg QD (home med) -Patients LDL and HgbA1c were checked and the patient will maintained on a high intensity statin. - Antiplatelet therapy: holding - Anticoagulation: holding - Repeat MRI Brain w/w/o contrast in 2 months Hemorrhagic Stroke Core Measures -NHISS on admission 0 -Patient has been started on Mechanical (SCD's) and Pharmacological (SQ heparin) DVT prophylaxis will be started after stable HCT. -Antiplatelet therapy is not indicated. -Anticoagulation therapy not indicated in hemorrhagic stroke -Patients LDL and HgbA1c were checked and the patient will bedischarged on a lipid lowering Statin medication if LDL is greater than 100. -Dysphagia screening ordered, and will be completed prior to patient receiving oral intake. -Stroke education booklet has been provided both written and verbal education to the patient and family regarding hemorrhagic strokes. -Patient is being assessed for Rehab by PT/OT/Speech and PM&R if indicated. Hypothyroidism: Continue home synthroid HLD: Continue home rosuvastatin Melony Madsen MD 05/31/2023 3:29 PM VITAL SIGNS Temp: [97.9 F (36.6 C)] 97.9 F (36.6 C) Pulse (Heart Rate): [57-87] 67 Resp Rate: [15-25] 19 BP: (119-167)/(54-81) 132/60 O2 Sat (%): [91 %-95 %] 94 % Weight: [95.9 kg (211 lb 8 oz)] 95.9 kg (211 lb 8 oz) IMAGING/DIAGNOSTIC STUDIES CT ABDOMEN/PELVIS WITH CONTRAST Final Result IMPRESSION: 1. No definite evidence of any primary malignancy or metastatic disease in the abdomen or pelvis. 2. No abdominal or pelvic lymphadenopathy by size criteria 3. Small bilateral renal cysts 4. Subtle thickening along the distal esophagus with a small hiatal hernia. Please correlate with upper GI symptoms 5. Layering of sludge and possible tiny stones in the gallbladder. Right upper quadrant ultrasound is recommended for confirmation of these findings. 6. Small simple appearing cyst in the left hepatic dome. 7. Slight urinary bladder wall thickening. Please correlate with lower urinary tract symptoms 8. Ancillary findings as described above CHEST WITH CONTRAST Final Result IMPRESSION: 1. No convincing CT evidence of metastatic disease within the chest. HEAD WITHOUT CONTRAST Final Result IMPRESSION: Stable hemorrhage with surrounding edema in the right frontal lobe. Adjacent subarachnoid hemorrhage in the right frontal lobe. Small amount of hemorrhage along the left frontal convexity new since the prior exam. BRAIN WITH AND WITHOUT CONTRAST Final Result IMPRESSION: Prominent acute parenchymal hematoma in the posterior/superior right frontal lobe with additional more subacute hematoma more anterior in the medial right frontal lobe. There is no corresponding enhancement with the larger hematoma with small amount of peripheral enhancement at the subacute hematoma without discrete focal nodularity. Intrinsic T1 hyperintensity may obscure additional areas of underlying enhancement, and follow-up imaging in 6-8 weeks is recommended. Scattered sulcal susceptibility artifact, much of which corresponds to the areas of subarachnoid hemorrhage on recent CT head. There is also corresponding mild leptomeningeal enhancement which may be related to this subarachnoid hemorrhage. Other differential considerations would include infectious/inflammatory and neoplastic etiologies, and attention on follow-up imaging is advised to assess for interval change. Nonspecific right-sided dural thickening and enhancement, which may be reactive. ANGIO BRAIN/NECK Final Result IMPRESSION: 1. No hemodynamically significant stenosis, occlusion, aneurysm, dissection, or arteriovenous malformation of the major arteries of the head and neck. 2. Right frontal lobe hyperattenuating lesion measures approximately 108 Hounsfield units on this exam versus approximately 75 HU on the contemporaneous noncontrasted CT, suggestive of and underlying enhancing mass. This can be further evaluated with nonemergent MRI of the brain. I personally viewed and interpreted these images and I have reviewed and approved this report. STROKE HEAD-STROKE ALERT ONLY Final Result IMPRESSION: 1. High-attenuating lesion at the superior right frontal lobe with surrounding vasogenic edema raises concern for hemorrhagic mass versus intraparenchymal hemorrhage; this is stable from prior outside hospital same-day head CT. 2. Small amount of subarachnoid hemorrhage within sulci along the medial margin of the right frontal lobe. 3. Recommend nonemergent MRI brain with and without contrast to assess for an underlying mass lesion. Findings were discussed with Hernesto Montelongo at 2152 on 05/30/[address] Kelsi Elias. I personally viewed and interpreted these images and I have reviewed and approved this report. CARDIOGRAM (Results Pending) MEDICATIONS Levothyroxine 50 mcg Oral Daily Pantoprazole 40 mg Oral Daily Rosuvastatin 5 mg Oral Daily Senna 8.6 mg Oral Daily Or Senna 8.6 mg Per NG tube Daily documented in this encounter [facility] 06-01-2023 Plan of care note Problem: RADIO OFFICER - Cognition Goal: Memory: Strategy Training - Patient will demonstrate understanding of external and internal memory strategies with minimal, verbal cues in order to facilitate improvements with memory for greater level of independence with IADLs Outcome: Ongoing Goal: IADL Problem Solving - Patient will complete multistage problem-solving for daily living math, job related tasks and/or home skills in structured therapy tasks with minimal, verbal cues with 90% accuracy or greater to facilitate improved independence Outcome: Ongoing Goal: Executive Function - Patient will complete functional executive functioning tasks (e.g., sequencing of ADLs, planning) with 90% of accuracy or greater given minimal, verbal cues to improve functional independence Outcome: Ongoing Problem: RADIO OFFICER - Language Goal: Word Retrieval Strategies for Conversation - Patient will state and/or demonstrate understanding of trained strategies targeting anomia with no more than set-up cues to use strategies during functional conversation to reduce communication breakdowns Outcome: Ongoing [facility] 06-01-2023 Plan of care note Problem: OT - ADLs Goal: Grooming - Patient will complete grooming in standing with independence for improved ability to safely complete ADLs. Outcome: Ongoing Goal: Toileting - Patient will complete toileting task with independence and adaptive equipment as needed for improved ability to safely complete self-care activities. Outcome: Ongoing Goal: Bathing - Patient will perform full body bathing routine with modified independence while seated for improved ability to complete self-care activities Outcome: Ongoing Problem: OT - Cognition Goal: Cognition Home Maintenance - Patient will complete simulated home maintenance task: medication management, finance management, and meal prep with supervision and 100% accuracy. Outcome: Ongoing Problem: OT - Strength/ROM Goal: Strength/ROM ADL Participation - Patient will participate in UE exercise program with independence to prevent deconditioning while in hospital and to max UE ROM/Coordination/strength for ADLs. Outcome: Ongoing Problem: OT - Other Goal: Energy Conservation Task Recall - Patient will independently recall 3 energy conservation principles to increase functional activity tolerance during ADLs, IADLs, and functional mobility tasks. Outcome: Ongoing [facility] 06-01-2023 Plan of care note Neurosurgery Update: Consulted for hemorrhagic mass versus intraparenchymal hemorrhage, small SAH. Imaging reviewed which revealed R frontal IPH with SAH. MRI was obtained and was not read as there being concern for any underlying mass. No neurosurgical intervention at this time. - No need for neurosurgical follow up - Neurosurgery will sign-off. Please call with questions. Issac Toledo MD, Neurosurgery NS2 ([phone]) [facility] Work Phone: 05-31-2023 Consult note Formatting of th is note might be different from the original. Stroke Attending Addendum (Date of service 05/31/23): I have interviewed and examined patient. I have reviewed Dr. Hernesto Montelongo's note and agree with the following highlights, additions, and addendums: The patient is a 67 y.o. right-handed female with a history of GERD, hyperlipidemia, hypothyroidism, and osteoarthritis who family reports 2 weeks ago developed symptoms of confusion. Then 4 days ago the confusion worsened. Patient leaves ran into doors twice, left doors open, not going on green light while driving, not able to read the clock or do math. 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 She has had headache for the last 4 days. At the Outside [facility] CT brain showed a right frontal intracerebral hemorrhage with edema. She was transferred to [facility] ER and on arrival NIHSS was 0. CT brain shows stable 3cm right frontal intracerebral hemorrhage. CT angiogram head/neck negative. The patient was admitted to the Stroke team. MRI brain diffusion weighted images negative, MRI shows 2 right frontal ICH- an acute one and a subacute one medially (seen on SWI but not on CT), some enhancement around the subacute hemorrhage. LDL 74, HgbA1c 6.0. CT chest/abd/pelvis negative. NSG consulted. ROS: Pertinent Positives and Negatives are positive for +BERUMEN x 4 days, +N/V. No weight loss, no fevers. All other systems reviewed and are negative. Interval Overnight History: 135/65. +N/V today, given zofran. Neurological examination shows mild confusion (difficulty with math) otherwise nonfocal exam, NIHSS-0. Assessment/Plan: Subacute right frontal Intracerebral hemorrhage Post-bleed day 2 weeks. Unclear etiology, but occult malignancy work-up negative thus far. Continue Blood pressure control. DVT prophylaxis with SCDs and start lovenox SQ. PT/OT consults. Repeat MRI brain with contrast in 6-8 weeks and follow-up in stroke fellow clinic after MRI. Alyssa Schultz MD [facility] 05-31-2023 Consult note Formatting of th is note might be different from the original. Stroke Attending Addendum (Date of service 05/31/23): I have interviewed and examined patient. I have reviewed Dr. Hernesto Montelongo's note and agree with the following highlights, additions, and addendums: The patient is a 67 y.o. right-handed female with a history of GERD, hyperlipidemia, hypothyroidism, and osteoarthritis who family reports 2 weeks ago developed symptoms of confusion. Then 4 days ago the confusion worsened. Patient leaves ran into doors twice, left doors open, not going on green light while driving, not able to read the clock or do math. 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 She has had headache for the last 4 days. At the Outside [facility] CT brain showed a right frontal intracerebral hemorrhage with edema. She was transferred to [facility] ER and on arrival NIHSS was 0. CT brain shows stable 3cm right frontal intracerebral hemorrhage. CT angiogram head/neck negative. The patient was admitted to the Stroke team. MRI brain diffusion weighted images negative, MRI shows 2 right frontal ICH- an acute one and a subacute one medially (seen on SWI but not on CT), some enhancement around the subacute hemorrhage. LDL 74, HgbA1c 6.0. CT chest/abd/pelvis negative. NSG consulted. ROS: Pertinent Positives and Negatives are positive for +BERUMEN x 4 days, +N/V. No weight loss, no fevers. All other systems reviewed and are negative. Interval Overnight History: 135/65. +N/V today, given zofran. Neurological examination shows mild confusion (difficulty with math) otherwise nonfocal exam, NIHSS-0. Assessment/Plan: Subacute right frontal Intracerebral hemorrhage Post-bleed day 2 weeks. Unclear etiology, but occult malignancy work-up negative thus far. Continue Blood pressure control. DVT prophylaxis with SCDs and start lovenox SQ. PT/OT consults. Repeat MRI brain with contrast in 6-8 weeks and follow-up in stroke fellow clinic after MRI. Alyssa Schultz MD Neurosurgery Consult Note Reason for Consult:hemorrhagic mass versus intraparenchymal hemorrhage, small SAHContact Number:[id number] HPI Ms. Kaia Haley is a 67 y.o. female w/ GERD, HLD, hypothyroidism, OA, and spinal stenosis who presents with AMS and confusion. Patient has experienced confusion for the last 2-3 weeks, family has witnessed her acting strange and not recognizing things that she would normally be able to do in the past. CTH showing a R frontal IPH with SAH. Pt denies numbness, weakness, paresthesias, altered ambulation, change in vision, difficulty swallowing, change in speech, change in bowel/bladder habits, or other focal neurologic deficits. She takes no anticoagulants or antiplatelet agents. ROS: All other systems are negative except as mentioned in HPI Past Medical History: Diagnosis Date GERD (gastroesophageal reflux disease) Hyperlipidemia Hypothyroidism No past surgical history on file. History reviewed. No pertinent family history. Social History Tobacco Use Smoking status: Never Smokeless tobacco: Never Vaping Use Vaping Use: Never used Substance Use Topics Alcohol use: Yes Alcohol/week: 1.0 standard drink of alcohol Types: 1 Standard drinks or equivalent per week Drug use: Never Allergies Allergies Allergen Reactions Penicillins Rash Infusions Sodium chloride 0.9% w/potassium cl 75 mL/hr at 05/30/23 9977 Scheduled Meds [START ON 05/31/2023] Levothyroxine 50 mcg Oral Daily [START ON 05/31/2023] Pantoprazole 40 mg Oral Daily [START ON 05/31/2023] Rosuvastatin 5 mg Oral Daily [START ON 05/31/2023] Senna 8.6 mg Oral Daily Or [START ON 05/31/2023] Senna 8.6 mg Per NG tube Daily PRN Meds: Acetaminophen OR Acetaminophen OR Acetaminophen OR Acetaminophen, hydrALAZINE OR hydrALAZINE, Labetalol OR Labetalol, Lidocaine 1% (PF), Ondansetron 4mg/2ml OR Ondansetron, Polyethylene glycol OR Polyethylene glycol Home Meds Prior to Admission medications Medication Sig Start Date End Date Taking? Authorizing Provider Levothyroxine 50 MCG tablet Take 1 tablet by mouth daily. 03/02/23 Yes Historical Provider omeprazole [address] capsule Take 1 capsule by mouth daily. 12/19/22 Yes Historical Provider Rosuvastatin 5 MG tablet Take 1 tablet by mouth daily. Historical Provider Vitals Pulse (Heart Rate): [73-80] 79 Resp Rate: [16-24] 22 BP: (138-167)/(63-81) 138/63 O2 Sat (%): [93 %-95 %] 94 % Weight: [95.9 kg (211 lb 8 oz)] 95.9 kg (211 lb 8 oz) Physical General: NAD Cards: no obvious JVD Resp: no stridor or retractions Abd: soft NTND Ext: no edema Mental Status: Awake, alert, oriented x3. Cooperative, follows commands. Language fluent. Cranial Nerves: PERRL, EOMI bilaterally. Facial sensation intact in all 3 branches. Facial movement intact and symmetric. SCM/Trap strength 5/5 bilaterally. Tongue is midline. Motor Function: SA EF EE WF WE FG DI HF KF KE PF DF Right 5 5 5 5 5 5 5 5 5 5 5 5 Left 5 5 5 5 5 5 5 5 5 5 5 5 Sensory Function: Sensation is intact to light touch and painful stimulation throughout. No drift Labs WBC/Hgb/Hct/Plts: 6.54/12.6/38.6/231 (05/30 2150) Na/K+/Phos/Mg/Ca: 137/3.7/3.5/2.1/8.5 (05/30 2150) Bun/Creat/Cl/CO2/Glucose: 13/0.80/105/26/96 (05/30 2150) Recent Labs 05/30/232150 PT 13.6 INR 1.1 Imaging: CT ANGIO BRAIN/NECK Final Result IMPRESSION: 1. No hemodynamically significant stenosis, occlusion, aneurysm, dissection, or arteriovenous malformation of the major arteries of the head and neck. 2. Right frontal lobe hyperattenuating lesion measures approximately 108 Hounsfield units on this exam versus approximately 75 HU on the contemporaneous noncontrasted CT, suggestive of and underlying enhancing mass. This can be further evaluated with nonemergent MRI of the brain. I personally viewed and interpreted these images and I have reviewed and approved this report. STROKE HEAD-STROKE ALERT ONLY Final Result IMPRESSION: 1. High-attenuating lesion at the superior right frontal lobe with surrounding vasogenic edema raises concern for hemorrhagic mass versus intraparenchymal hemorrhage; this is stable from prior outside hospital same-day head CT. 2. Small amount of subarachnoid hemorrhage within sulci along the medial margin of the right frontal lobe. 3. Recommend nonemergent MRI brain with and without contrast to assess for an underlying mass lesion. Findings were discussed with Hernesto Montelongo at 2152 on 05/30/[address] Kelsi Elias. I personally viewed and interpreted these images and I have reviewed and approved this report. BRAIN WITH AND WITHOUT CONTRAST (Results Pending) A/P: Kaia Haley is a 67 y.o. female w/ GERD, HLD, hypothyroidism, OA, and spinal stenosis who presents with AMS and confusion with a R frontal IPH with SAH, differential included hemorrhage 2/2 HTN vs. Hemorrhagic lesion. - neuro checks - repeat CTH 6h from last - CT CAP (staging scans) - med onc evaluation - MRI brain with and without contrast when able - hemorrhagic stroke care per neurovascular - goal SBP<140, INR<1.4, Platelets >100k - hold all antiplatelet agents and anticoagulation - no diet restrictions from neurosurgery perspective - admission to neurovascular Staff: Geoffrey Covering: NS2 ([phone]) ## neurosurgery coverage changes at [phone]; if 0530 or 1730 has passed since original consult note placed, please page covering pager above ## Complexity. Obesity Body mass index is 34.14 kg/m . - Follow with PCP for dietary and lifestyle modifications. Hypothyroidism - Continue thyroid replacement Any conditions listed below are present on admission unless otherwise specified. . Attending Addendum I have seen and examined the patient and agree with the resident's note. Attending Physician Note I have seen and examined Kaia Haley, reviewed her images, and agree with the resident's assessment and plan. I have discussed the situation with the patient and family. The patient presents with a diagnosis of spontaneous right frontal hemorrhage. The treatment plan is work up for a structural cause. Based on the history and exam, I agree with the medical decision making with the following comment(s): none . Neurovascular Evaluation Note Evaluation Date: 05/30/2023 Unit: [id number] Consultation was requested by Dr. Hussain Limon MD Patient status: Inpatient Length of stay: 0 days Reason for Consult/Chief Complaint Hemmoraghic stroke alert: confusion 2-3 weeks History of Present Illness Kaia Haley is a 67 y.o. female with PMH significant for GERD, HLD, hypothyroidism, OA, and spinal stenosis who presents with confusion for 2-3 weeks. A stroke alert was called for STAT consultation. Per family patient has been acting confused and unlike her self for the past 2-3 weeks. States pt will read clock incorrectly or will leave doors open. Additionally, would sit at traffic light when its green not recognizing that she should go, unless told to do so. Patient denies headache, head injuries, V/D/N, fever, weight loss, night sweats, previous dx of cancer, blood in stool, hematuria, or hemoptysis. Patient was taken to [facility] where CTH showed R frontal IPH with surrounding hypodensity likely corresponding edema. Patient was then transferred to [facility] for further management (no neurosurgery at OSH ). Patient doesn't smoke or drink alcohol. Time of Level 1 Stroke Alert Activation (Or In House): 1722 Arrival Time of Stroke Team : 2128 Patient Location - Onset of Symptoms: Not in a healthcare setting Last Known Well: Date: 05/09/23 Source of information: family Review of Systems A complete review of systems was negative except for: what's listed in HPI Neurovascular-specific History / Information Home antiplatelet/anticoagulation therapy: none. Patient Current Risk Factors: Stroke risk factors include family history or hyperlipidemia. Prior stroke history: no. Family Hx of Stroke: Parents: yes (mother) Siblings: no Stroke Diagnostic/Treatment Eligibility Information Thrombolytic not given due to IPH. Time to tPA delayed due to: N/A Stroke Clinical Assessment Information: NIHSS (Provider) Flowsheet Row First Filed Value Provider NIH Stroke Scale NIH Interval (Provider) admission filed on 05/30/20232131 NIH Level of Conciousness (Provider) 0 filed on 05/30/20232131 NIH LOC Questions (Provider) 0 filed on 05/30/20232131 NIH LOC Commands (Provider) 0 filed on 05/30/20232131 NIH Best Gaze (Provider) 0 filed on 05/30/20232131 NIH Visual (Provider) 0 filed on 05/30/20232131 NIH Facial Palsy (Provider) 0 filed on 05/30/20232131 NIH Left Arm Motor (Provider) 0 filed on 05/30/20232131 NIH Right Arm Motor (Provider) 0 filed on 05/30/20232131 NIH Left Leg Motor (Provider) 0 filed on 05/30/20232131 NIH Right Leg Motor (Provider) 0 filed on 05/30/20232131 NIH Limb Ataxia (Provider) 0 filed on 05/30/20232131 NIH Sensory (Provider) 0 filed on 05/30/20232131 NIH Best Language (Provider) 0 filed on 05/30/20232131 NIH Dysarthria (Provider) 0 filed on 05/30/20232131 NIH Extinction and Inattention (Provider) 0 filed on 05/30/20232131 NIH Total Score (Provider) 0 filed on 05/30/20232131 Is NIH=0 Within 180 min of Last Known Well Time? -- Stroke Scales Flowsheet Row Most Recent Value ICH Score (Calculated) 0 filed on 05/30/20236 Modified Delfina Scale Score Premorbid (MRSS) 0 filed on 05/30/20232212 NIH Total Score (Provider) 0 filed on 05/30/20232131 Past Medical History Medical History: Past Medical History: Diagnosis Date GERD (gastroesophageal reflux disease) Hyperlipidemia Hypothyroidism SURGICAL HISTORY: No past surgical history on file. SOCIAL HISTORY: Social History Tobacco Use Smoking status: Never Smokeless tobacco: Never Vaping Use Vaping Use: Never used Substance Use Topics Alcohol use: Yes Alcohol/week: 1.0 standard drink of alcohol Types: 1 Standard drinks or equivalent per week Drug use: Never Medications PRIOR TO ARRIVAL MEDS: Prior to Admission medications Medication Sig Start Date End Date Taking? Authorizing Provider Levothyroxine 50 MCG tablet Take 1 tablet by mouth daily. 03/02/23 Yes Historical Provider omeprazole [address] capsule Take 1 capsule by mouth daily. 12/19/22 Yes Historical Provider Rosuvastatin 5 MG tablet Take 1 tablet by mouth daily. Historical Provider Current Meds: Current Facility Administered Meds: Current Facility-Administered Medications Medication Dose Route Frequency Provider Last Rate Last Admin Acetaminophen (TYLENOL) tablet 325 mg 325 mg Oral Q4H PRN Hernesto Montelongo MD Or Acetaminophen (TYLENOL) tablet 325 mg 325 mg Per NG tube Q4H PRN Hernesto Montelongo MD Or Acetaminophen (TYLENOL) tablet 650 mg 650 mg Oral Q4H PRN Hernesto Montelongo MD Or Acetaminophen (TYLENOL) tablet 650 mg 650 mg Per NG tube Q4H PRN Hernesto Montelongo MD hydrALAZINE (APRESOLINE) injection 10 mg 10 mg Intravenous Q1H PRN Hernesto Montelongo MD Or hydrALAZINE (APRESOLINE) injection 20 mg 20 mg Intravenous Q1H PRN Hernesto Montelongo MD Labetalol (NORMODYNE) injection 10 mg 10 mg Intravenous Q1H PRN Hernesto Montelongo MD Or Labetalol (NORMODYNE) injection 20 mg 20 mg Intravenous Q1H PRN Hernesto Montelongo MD [START ON 05/31/2023] Levothyroxine (SYNTHROID) tablet 50 mcg 50 mcg Oral Daily Hernesto Montelongo MD Lidocaine 1% (PF) (XYLOCAINE MPF) 1 % injection 0.3 mL 0.3 mL Infiltration Once PRN Julia Davis DO Ondansetron 4mg/2ml (ZOFRAN) injection 4 mg 4 mg Intravenous Q6H PRN Hernesto Montelongo MD Or Ondansetron (ZOFRAN) tablet 4 mg 4 mg Oral Q6H PRN Hernesto Montelongo MD [START ON 05/31/2023] Pantoprazole (PROTONIX) tablet DR 40 mg 40 mg Oral Daily Hernesto Montelongo MD Polyethylene glycol (MIRALAX) packet 17 g 17 g Oral Daily PRN Hernesto Montelongo MD Or Polyethylene glycol (MIRALAX) packet 17 g 17 g Per NG tube Daily PRN Hernesto Montelongo MD [START ON 05/31/2023] Rosuvastatin (CRESTOR) tablet 5 mg 5 mg Oral Daily Hernesto Montelongo MD [START ON 05/31/2023] Senna (SENOKOT) tablet 8.6 mg 8.6 mg Oral Daily Hernesto Montelongo MD Or [START ON 05/31/2023] Senna (SENOKOT) tablet 8.6 mg 8.6 mg Per NG tube Daily Hernesto Montelongo MD sodium chloride 0.9% 1,000 ml with potassium chloride 20 mEq premix IV solution Intravenous Continuous Hernesto Montelongo MD Current Outpatient Medications Medication Sig Dispense Refill Levothyroxine 50 MCG tablet Take 1 tablet by mouth daily. omeprazole [address] capsule Take 1 capsule by mouth daily. Rosuvastatin 5 MG tablet Take 1 tablet by mouth daily. Scheduled Meds: [START ON 05/31/2023] Levothyroxine 50 mcg Oral Daily [START ON 05/31/2023] Pantoprazole 40 mg Oral Daily [START ON 05/31/2023] Rosuvastatin 5 mg Oral Daily [START ON 05/31/2023] Senna 8.6 mg Oral Daily Or [START ON 05/31/2023] Senna 8.6 mg Per NG tube Daily Continuous Infusions: Sodium chloride 0.9% w/potassium cl PRN Meds:Acetaminophen OR Acetaminophen OR Acetaminophen OR Acetaminophen, hydrALAZINE OR hydrALAZINE, Labetalol OR Labetalol, Lidocaine 1% (PF), Ondansetron 4mg/2ml OR Ondansetron, Polyethylene glycol OR Polyethylene glycol Vitals Objective Findings: Vital Signs (24hrs): Pulse (Heart Rate): [73-80] 73 Resp Rate: [16-24] 24 BP: (138-167)/(70-81) 156/70 O2 Sat (%): [93 %-95 %] 94 % Weight: [95.9 kg (211 lb 8 oz)] 95.9 kg (211 lb 8 oz) Body mass index is 34.14 kg/m . Lines/Drains/Airways/Wounds: Patient Lines/Drains/Airways Status Active Lines, Drains, Airways, & Wound Overview Name Placement date Placement time Site Days Peripheral IV Line - Single Lumen 05/30/232150 median cubital vein (antecubital fossa), left 20 gauge 05/30/232150 -- less than 1 Physical Exam General: Laying comfortably in bed; in no acute distress. CV: RRR. Pulmonary: No increased work of breathing, equal chest rise bilaterally, no audible wheezing. Abdomen: soft, non-tender Ext: No cyanosis, edema, or deformity Skin: No rash Neurological Examination Psych and Mental status: alert; oriented to person, place, year, and month; good attention Speech/language: fluent; comprehension intact; object naming intact; repetition intact Cranial nerves: CN II visual omalley full to confrontation without visual extinction CN III, IV, PERRL. EOMI. CN V facial sensation intact to light touch bilaterally in V1, V2, V3 CN VII face, smile, eyebrow raise/closure symmetric CN VIII hearing grossly intact to voice CN IX & X soft palate elevates symmetrically in the midline, no dysarthria CN XI shoulder shrug full strength bilaterally CNXII tongue protrudes midline Motor: Normal bulk and tone. Right Arm: no drift Left Arm: no drift Right Leg: no drift Left Leg: no drift Coordination: Lvlils-ch-xksh intact bilaterally. Jxsw-wt-ogar intact bilaterally. Rapid alternating movements are normal. Sensation: intact to light touch throughout without extinction. Gait: Deferred Laboratory Results Diagnostics/Procedures: Labs-CBC WBC/Hgb/Hct/Plts: 6.54/12.6/38.6/231 (05/30 2150) Labs-Chem 7([facility]) Bun/Creat/Cl/CO2/Glucose: 13/0.80/105/26/96 (05/30 2150) Na/K+/Phos/Mg/Ca: 137/3.7/3.5/2.1/8.5 (05/30 2150) Labs-Coags Ptt/Pt/Inr: 30.9/13.6/1.1 (05/30 2150) Additional Labs No results found for: CHOLESTEROL, TRIG, HDL, LDLCALC, LDLDIRECT Labs-Hemoglobin A1C No results found for: HGBA1C Imaging Imaging was not analyzed by [facility] CT Stroke Head: R frontal IPH + cortical SAH + surrounding edema no MLS CTA Brain/Neck: Negative spot sign. CT Perfusion: N/A Assessment/Impression Kaia Haley presents with ICH likely due to tumor vs hemorrhagic stroke. More likely tumor due to corresponding edema. Though ICH can also cause edema, though given patient's symptoms started 2-3 weeks ago would have expected blood to have been less hyperintense by now (if solely caused by stroke and not a tumor). Plan -Please admit to neurovascular service PCU, attending Dr. Schultz. A hemorrhagic stroke order set has been signed and held. ICH score 0 -Neurosurgery consulted. Appreciate recommendations -Check PT/INR/PTT and reverse any coagulopathy -Blood pressure goals with SBP less than 140 -Repeat a head CT [address] -Vital signs and neuro assessments q 2 -No anticoagulation, antiplatelet therapy and pharmacological DVT prophylaxis until a follow up head CT/MRI has been completed to ensure stability of hemorrhage -Obtain brain MRI with and without contrast unless contraindicated -Swallow evaluation prior to any oral intake -ECHO to evaluate cardiac function -Lipid panel, LFTs and HgbA1c to evaluate secondary risk factors -Baseline EKG, if not done in ED. Continuous telemetry -PT, OT, Speech and social media analyst consults Other problems: Complexity. Obesity Body mass index is 34.14 kg/m . - Follow with PCP for dietary and lifestyle modifications. Hypothyroidism - Continue thyroid replacement Any conditions listed below are present on admission unless otherwise specified. .None This plan has been discussed with stroke fellow Dr. Garrison and has been communicated to ED team. Hernesto Montelongo MD 05/30/2023 10:35 PM Other medical problems: GERD: OP omeprazole---> IP protonix 40 mg Qdaily HLD: Crestor 5 mg Qdaily Hypothyroidism: synthroid 50 mcg QBKF Code Status: Full Code DVT prophylaxis: none given ICH Diet: DIET NPO WITHOUT meds Plans are preliminary until note is cosigned and attested by consulting attending physician. Please see final attending physician attestation for final recommendations. If you have any further questions, please contact the neurovascular team resident farm demonstrator listed on [email or web address]. 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 Please page the on-call resident with urgent questions, as [employer] Secure Chat is not a reliable method for urgent needs. Signed, Hernesto Montelongo MD PGY-2, Neurology documented in this encounter [facility] 05-31-2023 Nurse Note On admission to B10E, from ED a dual RN initial assessment of skin condition was performed by Ignacia Humphreys RN and Mariana SANCHEZ. Skin Assessment: Skin within defined limits:Yes Diogo Score: 21 LDA Added:No Ignacia Humphreys RN [facility] 05-31-2023 Physician Emergency department Note Received on sign out Vitals: 05/31/23 0400 BP: 128/61 Pulse: 80 Resp: 23 Temp: SpO2: 95% ED Course as of 05/31/236 Wed May 30, 2023 2237 Admit to neurovas PCU. Stroke vs brain mass. Normal Exam. [facility] May 31, 2023 0435 Called to room for an episode of n/v and reported SOB. The patient told me the SOB resolved after vomiting. She denies any abnormal intraoral swelling or other odd sensation. Breathing unlabored. Speaking appropriated. No oral swelling. No stridor. Lungs CTAB. HR and SpO2 normal. Will order a dose of Zofran and continue to monitor. Lynn Shetty MD Resident 05/31/23435 [facility] Work Phone: 05-30-2023 Consult note Formatting of th is note is different from the original. Neurosurgery Consult Note Reason for Consult:hemorrhagic mass versus intraparenchymal hemorrhage, small SAHContact Number:[id number] [facility] Ms. Kaia Haley is a 67 y.o. female w/ GERD, HLD, hypothyroidism, OA, and spinal stenosis who presents with AMS and confusion. Patient has experienced confusion for the last 2-3 weeks, family has witnessed her acting strange and not recognizing things that she would normally be able to do in the past. CTH showing a R frontal IPH with SAH. Pt denies numbness, weakness, paresthesias, altered ambulation, change in vision, difficulty swallowing, change in speech, change in bowel/bladder habits, or other focal neurologic deficits. She takes no anticoagulants or antiplatelet agents. ROS: All other systems are negative except as mentioned in HPI Past Medical History: Diagnosis Date GERD (gastroesophageal reflux disease) Hyperlipidemia Hypothyroidism No past surgical history on file. History reviewed. No pertinent family history. Social History Tobacco Use Smoking status: Never Smokeless tobacco: Never Vaping Use Vaping Use: Never used Substance Use Topics Alcohol use: Yes Alcohol/week: 1.0 standard drink of alcohol Types: 1 Standard drinks or equivalent per week Drug use: Never Allergies Allergies Allergen Reactions Penicillins Rash Infusions Sodium chloride 0.9% w/potassium cl 75 mL/hr at 05/30/23 1387 Scheduled Meds [START ON 05/31/2023] Levothyroxine 50 mcg Oral Daily [START ON 05/31/2023] Pantoprazole 40 mg Oral Daily [START ON 05/31/2023] Rosuvastatin 5 mg Oral Daily [START ON 05/31/2023] Senna 8.6 mg Oral Daily Or [START ON 05/31/2023] Senna 8.6 mg Per NG tube Daily PRN Meds: Acetaminophen OR Acetaminophen OR Acetaminophen OR Acetaminophen, hydrALAZINE OR hydrALAZINE, Labetalol OR Labetalol, Lidocaine 1% (PF), Ondansetron 4mg/2ml OR Ondansetron, Polyethylene glycol OR Polyethylene glycol Home Meds Prior to Admission medications Medication Sig Start Date End Date Taking? Authorizing Provider Levothyroxine 50 MCG tablet Take 1 tablet by mouth daily. 03/02/23 Yes Historical Provider omeprazole [address] capsule Take 1 capsule by mouth daily. 12/19/22 Yes Historical Provider Rosuvastatin 5 MG tablet Take 1 tablet by mouth daily. Historical Provider Vitals Pulse (Heart Rate): [73-80] 79 Resp Rate: [16-24] 22 BP: (138-167)/(63-81) 138/63 O2 Sat (%): [93 %-95 %] 94 % Weight: [95.9 kg (211 lb 8 oz)] 95.9 kg (211 lb 8 oz) Physical General: NAD Cards: no obvious JVD Resp: no stridor or retractions Abd: soft NTND Ext: no edema Mental Status: Awake, alert, oriented x3. Cooperative, follows commands. Language fluent. Cranial Nerves: PERRL, EOMI bilaterally. Facial sensation intact in all 3 branches. Facial movement intact and symmetric. SCM/Trap strength 5/5 bilaterally. Tongue is midline. Motor Function: SA EF EE WF WE FG DI HF KF KE PF DF Right 5 5 5 5 5 5 5 5 5 5 5 5 Left 5 5 5 5 5 5 5 5 5 5 5 5 Sensory Function: Sensation is intact to light touch and painful stimulation throughout. No drift Labs WBC/Hgb/Hct/Plts: 6.54/12.6/38.6/231 (05/30 2150) Na/K+/Phos/Mg/Ca: 137/3.7/3.5/2.1/8.5 (05/30 2150) Bun/Creat/Cl/CO2/Glucose: 13/0.80/105/26/96 (05/30 2150) Recent Labs 05/30/232150 PT 13.6 INR 1.1 Imaging: CT ANGIO BRAIN/NECK Final Result IMPRESSION: 1. No hemodynamically significant stenosis, occlusion, aneurysm, dissection, or arteriovenous malformation of the major arteries of the head and neck. 2. Right frontal lobe hyperattenuating lesion measures approximately 108 Hounsfield units on this exam versus approximately 75 HU on the contemporaneous noncontrasted CT, suggestive of and underlying enhancing mass. This can be further evaluated with nonemergent MRI of the brain. I personally viewed and interpreted these images and I have reviewed and approved this report. STROKE HEAD-STROKE ALERT ONLY Final Result IMPRESSION: 1. High-attenuating lesion at the superior right frontal lobe with surrounding vasogenic edema raises concern for hemorrhagic mass versus intraparenchymal hemorrhage; this is stable from prior outside hospital same-day head CT. 2. Small amount of subarachnoid hemorrhage within sulci along the medial margin of the right frontal lobe. 3. Recommend nonemergent MRI brain with and without contrast to assess for an underlying mass lesion. Findings were discussed with Hernesto Montelongo at 2151 on 05/30/[address] Kelsi Elias. I personally viewed and interpreted these images and I have reviewed and approved this report. BRAIN WITH AND WITHOUT CONTRAST (Results Pending) A/P: Kaia aHley is a 67 y.o. female w/ GERD, HLD, hypothyroidism, OA, and spinal stenosis who presents with AMS and confusion with a R frontal IPH with SAH, differential included hemorrhage 2/2 HTN vs. Hemorrhagic lesion. - neuro checks - repeat CTH 6h from last - CT CAP (staging scans) - med onc evaluation - MRI brain with and without contrast when able - hemorrhagic stroke care per neurovascular - goal SBP<140, INR<1.4, Platelets >100k - hold all antiplatelet agents and anticoagulation - no diet restrictions from neurosurgery perspective - admission to neurovascular Staff: Geoffrey Covering: NS2 ([phone]) ## neurosurgery coverage changes at 05/1729; if 0530 or 1730 has passed since original consult note placed, please page covering pager above ## Complexity. Obesity Body mass index is 34.14 kg/m . - Follow with PCP for dietary and lifestyle modifications. Hypothyroidism - Continue thyroid replacement Any conditions listed below are present on admission unless otherwise specified. . Attending Addendum I have seen and examined the patient and agree with the resident's note. Attending Physician Note I have seen and examined Kaia Haley, reviewed her images, and agree with the resident's assessment and plan. I have discussed the situation with the patient and family. The patient presents with a diagnosis of spontaneous right frontal hemorrhage. The treatment plan is work up for a structural cause. Based on the history and exam, I agree with the medical decision making with the following comment(s): none . [facility] Work Phone: 05-30-2023 Note Acute Coronary Syndr ome (ACS): Initial Evaluation and Management: [email or web address] 05-30-2023 Note Formatting of this n ote might be different from the original. I recertify that this patient requires inpatient services at this time. Inpatient services are due to the following medical concerns brain bleed. Plans for post hospitalization care [facility] . [facility] 05-30-2023 Consult note Formatting of th is note is different from the original. Neurovascular Evaluation Note Evaluation Date: 05/30/2023 Unit: E036/E036 Consultation was requested by Dr. Hussain Limon MD Patient status: Inpatient Length of stay: 0 days Reason for Consult/Chief Complaint Hemmoraghic stroke alert: confusion 2-3 weeks History of Present Illness Kaia Haley is a 67 y.o. female with PMH significant for GERD, HLD, hypothyroidism, OA, and spinal stenosis who presents with confusion for 2-3 weeks. A stroke alert was called for STAT consultation. Per family patient has been acting confused and unlike her self for the past 2-3 weeks. States pt will read clock incorrectly or will leave doors open. Additionally, would sit at traffic light when its green not recognizing that she should go, unless told to do so. Patient denies headache, head injuries, V/D/N, fever, weight loss, night sweats, previous dx of cancer, blood in stool, hematuria, or hemoptysis. Patient was taken to OSH where CTH showed R frontal IPH with surrounding hypodensity likely corresponding edema. Patient was then transferred to [facility] for further management (no neurosurgery at OSH ). Patient doesn't smoke or drink alcohol. Time of Level 1 Stroke Alert Activation (Or In House): 1722 Arrival Time of Stroke Team : 2128 Patient Location - Onset of Symptoms: Not in a healthcare setting Last Known Well: Date: 05/09/23 Source of information: family Review of Systems A complete review of systems was negative except for: what's listed in HPI Neurovascular-specific History / Information Home antiplatelet/anticoagulation therapy: none. Patient Current Risk Factors: Stroke risk factors include family history or hyperlipidemia. Prior stroke history: no. Family Hx of Stroke: Parents: yes (mother) Siblings: no Stroke Diagnostic/Treatment Eligibility Information Thrombolytic not given due to IPH. Time to tPA delayed due to: N/A Stroke Clinical Assessment Information: NIHSS (Provider) Flowsheet Row First Filed Value Provider NIH Stroke Scale NIH Interval (Provider) admission filed on 05/30/20232131 NIH Level of Conciousness (Provider) 0 filed on 05/30/20232131 NIH LOC Questions (Provider) 0 filed on 05/30/20232131 NIH LOC Commands (Provider) 0 filed on 05/30/20232131 NIH Best Gaze (Provider) 0 filed on 05/30/20232131 NIH Visual (Provider) 0 filed on 05/30/20232131 NIH Facial Palsy (Provider) 0 filed on 05/30/20232131 NIH Left Arm Motor (Provider) 0 filed on 05/30/20232131 NIH Right Arm Motor (Provider) 0 filed on 05/30/20232131 NIH Left Leg Motor (Provider) 0 filed on 05/30/20232131 NIH Right Leg Motor (Provider) 0 filed on 05/30/20232131 NIH Limb Ataxia (Provider) 0 filed on 05/30/20232131 NIH Sensory (Provider) 0 filed on 05/30/20232131 NIH Best Language (Provider) 0 filed on 05/30/20232131 NIH Dysarthria (Provider) 0 filed on 05/30/20232131 NIH Extinction and Inattention (Provider) 0 filed on 05/30/20232131 NIH Total Score (Provider) 0 filed on 05/30/20232131 Is NIH=0 Within 180 min of Last Known Well Time? -- Stroke Scales Flowsheet Row Most Recent Value ICH Score (Calculated) 0 filed on 05/30/20236 Modified Lyon Scale Score Premorbid (MRSS) 0 filed on 05/30/20233 NIH Total Score (Provider) 0 filed on 05/30/20232131 Past Medical History Medical History: Past Medical History: Diagnosis Date GERD (gastroesophageal reflux disease) Hyperlipidemia Hypothyroidism SURGICAL HISTORY: No past surgical history on file. SOCIAL HISTORY: Social History Tobacco Use Smoking status: Never Smokeless tobacco: Never Vaping Use Vaping Use: Never used Substance Use Topics Alcohol use: Yes Alcohol/week: 1.0 standard drink of alcohol Types: 1 Standard drinks or equivalent per week Drug use: Never Medications PRIOR TO ARRIVAL MEDS: Prior to Admission medications Medication Sig Start Date End Date Taking? Authorizing Provider Levothyroxine 50 MCG tablet Take 1 tablet by mouth daily. 03/02/23 Yes Historical Provider omeprazole [address] capsule Take 1 capsule by mouth daily. 12/19/22 Yes Historical Provider Rosuvastatin 5 MG tablet Take 1 tablet by mouth daily. Historical Provider Current Meds: Current Facility Administered Meds: Current Facility-Administered Medications Medication Dose Route Frequency Provider Last Rate Last Admin Acetaminophen (TYLENOL) tablet 325 mg 325 mg Oral Q4H PRN Hernesto Montelongo MD Or Acetaminophen (TYLENOL) tablet 325 mg 325 mg Per NG tube Q4H PRN Hernesto Montelongo MD Or Acetaminophen (TYLENOL) tablet 650 mg 650 mg Oral Q4H PRN Hernesto Montelongo MD Or Acetaminophen (TYLENOL) tablet 650 mg 650 mg Per NG tube Q4H PRN Hernesto Montelongo MD hydrALAZINE (APRESOLINE) injection 10 mg 10 mg Intravenous Q1H PRN Hernesto Montelongo MD Or hydrALAZINE (APRESOLINE) injection 20 mg 20 mg Intravenous Q1H PRN Hernesto Montelongo MD Labetalol (NORMODYNE) injection 10 mg 10 mg Intravenous Q1H PRN Hernesto Montelongo MD Or Labetalol (NORMODYNE) injection 20 mg 20 mg Intravenous Q1H PRN Hernesto Montelongo MD [START ON 05/31/2023] Levothyroxine (SYNTHROID) tablet 50 mcg 50 mcg Oral Daily Hernesto Montelongo MD Lidocaine 1% (PF) (XYLOCAINE MPF) 1 % injection 0.3 mL 0.3 mL Infiltration Once PRN Julia Davis DO Ondansetron 4mg/2ml (ZOFRAN) injection 4 mg 4 mg Intravenous Q6H PRN Hernesto Montelongo MD Or Ondansetron (ZOFRAN) tablet 4 mg 4 mg Oral Q6H PRN Hernesto Montelongo MD [START ON 05/31/2023] Pantoprazole (PROTONIX) tablet DR 40 mg 40 mg Oral Daily Hernesto Montelongo MD Polyethylene glycol (MIRALAX) packet 17 g 17 g Oral Daily PRN Hernesto Montelongo MD Or Polyethylene glycol (MIRALAX) packet 17 g 17 g Per NG tube Daily PRN Hernesto Montelongo MD [START ON 05/31/2023] Rosuvastatin (CRESTOR) tablet 5 mg 5 mg Oral Daily Hernesto Montelongo MD [START ON 05/31/2023] Senna (SENOKOT) tablet 8.6 mg 8.6 mg Oral Daily Hernesto Montelongo MD Or [START ON 05/31/2023] Senna (SENOKOT) tablet 8.6 mg 8.6 mg Per NG tube Daily Hernesto Montelongo MD sodium chloride 0.9% 1,000 ml with potassium chloride 20 mEq premix IV solution Intravenous Continuous Hernesto Montelongo MD Current Outpatient Medications Medication Sig Dispense Refill Levothyroxine 50 MCG tablet Take 1 tablet by mouth daily. omeprazole [address] capsule Take 1 capsule by mouth daily. Rosuvastatin 5 MG tablet Take 1 tablet by mouth daily. Scheduled Meds: [START ON 05/31/2023] Levothyroxine 50 mcg Oral Daily [START ON 05/31/2023] Pantoprazole 40 mg Oral Daily [START ON 05/31/2023] Rosuvastatin 5 mg Oral Daily [START ON 05/31/2023] Senna 8.6 mg Oral Daily Or [START ON 05/31/2023] Senna 8.6 mg Per NG tube Daily Continuous Infusions: Sodium chloride 0.9% w/potassium cl PRN Meds:Acetaminophen OR Acetaminophen OR Acetaminophen OR Acetaminophen, hydrALAZINE OR hydrALAZINE, Labetalol OR Labetalol, Lidocaine 1% (PF), Ondansetron 4mg/2ml OR Ondansetron, Polyethylene glycol OR Polyethylene glycol Vitals Objective Findings: Vital Signs (24hrs): Pulse (Heart Rate): [73-80] 73 Resp Rate: [16-24] 24 BP: (138-167)/(70-81) 156/70 O2 Sat (%): [93 %-95 %] 94 % Weight: [95.9 kg (211 lb 8 oz)] 95.9 kg (211 lb 8 oz) Body mass index is 34.14 kg/m . Lines/Drains/Airways/Wounds: Patient Lines/Drains/Airways Status Active Lines, Drains, Airways, & Wound Overview Name Placement date Placement time Site Days Peripheral IV Line - Single Lumen 05/30/232150 median cubital vein (antecubital fossa), left 20 gauge 05/30/232150 -- less than 1 Physical Exam General: Laying comfortably in bed; in no acute distress. CV: RRR. Pulmonary: No increased work of breathing, equal chest rise bilaterally, no audible wheezing. Abdomen: soft, non-tender Ext: No cyanosis, edema, or deformity Skin: No rash Neurological Examination Psych and Mental status: alert; oriented to person, place, year, and month; good attention Speech/language: fluent; comprehension intact; object naming intact; repetition intact Cranial nerves: CN II visual omalley full to confrontation without visual extinction CN III, IV, PERRL. EOMI. CN V facial sensation intact to light touch bilaterally in V1, V2, V3 CN VII face, smile, eyebrow raise/closure symmetric CN VIII hearing grossly intact to voice CN IX & X soft palate elevates symmetrically in the midline, no dysarthria CN XI shoulder shrug full strength bilaterally CNXII tongue protrudes midline Motor: Normal bulk and tone. Right Arm: no drift Left Arm: no drift Right Leg: no drift Left Leg: no drift Coordination: Pjchai-uj-jxre intact bilaterally. Amzs-wt-dntx intact bilaterally. Rapid alternating movements are normal. Sensation: intact to light touch throughout without extinction. Gait: Deferred Laboratory Results Diagnostics/Procedures: Labs-CBC WBC/Hgb/Hct/Plts: 6.54/12.6/38.6/231 (05/30 2150) Labs-Chem 7([facility]) Bun/Creat/Cl/CO2/Glucose: 13/0.80/105/26/96 (05/30 2150) Na/K+/Phos/Mg/Ca: 137/3.7/3.5/2.1/8.5 (05/30 2150) Labs-Coags Ptt/Pt/Inr: 30.9/13.6/1.1 (05/30 2150) Additional Labs No results found for: CHOLESTEROL, TRIG, HDL, LDLCALC, LDLDIRECT Labs-Hemoglobin A1C No results found for: HGBA1C Imaging Imaging was not analyzed by [facility] CT Stroke Head: R frontal IPH + cortical SAH + surrounding edema no MLS CTA Brain/Neck: Negative spot sign. CT Perfusion: N/A Assessment/Impression Kaia Haley presents with ICH likely due to tumor vs hemorrhagic stroke. More likely tumor due to corresponding edema. Though ICH can also cause edema, though given patient's symptoms started 2-3 weeks ago would have expected blood to have been less hyperintense by now (if solely caused by stroke and not a tumor). Plan -Please admit to neurovascular service PCU, attending Dr. Schultz. A hemorrhagic stroke order set has been signed and held. ICH score 0 -Neurosurgery consulted. Appreciate recommendations -Check PT/INR/PTT and reverse any coagulopathy -Blood pressure goals with SBP less than 140 -Repeat a head CT [address] -Vital signs and neuro assessments q 2 -No anticoagulation, antiplatelet therapy and pharmacological DVT prophylaxis until a follow up head CT/MRI has been completed to ensure stability of hemorrhage -Obtain brain MRI with and without contrast unless contraindicated -Swallow evaluation prior to any oral intake -ECHO to evaluate cardiac function -Lipid panel, LFTs and HgbA1c to evaluate secondary risk factors -Baseline EKG, if not done in ED. Continuous telemetry -PT, OT, Speech and social media analyst consults Other problems: Complexity. Obesity Body mass index is 34.14 kg/m . - Follow with PCP for dietary and lifestyle modifications. Hypothyroidism - Continue thyroid replacement Any conditions listed below are present on admission unless otherwise specified. .None This plan has been discussed with stroke fellow Dr. Garrison and has been communicated to ED team. Hernesto Montelongo MD 05/30/2023 10:35 PM Other medical problems: GERD: OP omeprazole---> IP protonix 40 mg Qdaily HLD: Crestor 5 mg Qdaily Hypothyroidism: synthroid 50 mcg QBKF Code Status: Full Code DVT prophylaxis: none given ICH Diet: DIET NPO WITHOUT meds Plans are preliminary until note is cosigned and attested by consulting attending physician. Please see final attending physician attestation for final recommendations. If you have any further questions, please contact the neurovascular team resident farm demonstrator listed on [email or web address]. 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 Please page the on-call resident with urgent questions, as [employer] Secure Chat is not a reliable method for urgent needs. Signed, Hernesto Montelongo MD PGY-2, Neurology [facility] 05-30-2023 Emergency department Note 37 yo F pt transferred to from [facility] as a Level A hemorrhagic Stroke Alert. Pt has been feeling fuzzy for 2-3 weeks and family finally convinced pt to come to ER. CTH at OSH showed subacute bleed. Pt arrives to CT scanner w/ ER and neurovasc teams at bedside. A&Ox4, VSS [facility] 05-30-2023 Emergency department Note Department of Pharmacy Emergency Department Stroke Alert Response Note Patient Name: Kaia Haley Room/Bed: E036/E036 A Pharmacist responded to the stroke alert. The patient was determined to be having a hemorrhagic stroke. The IS order set ED: Confirmed Stroke/ICH - Secondary was placed by Dr. Davis for ongoing care. Pertinent medications received prior to arrival: none A targeted home medications list was obtained from OSH records, surescripts, patient report and has been updated in [facility]. The patient is NOT on any anticoagulant or antiplatelet medications. After discussion with Dr. Montelongo, SBP goal is to be between 120 and 140 mmHg. SBP is currently at goal and no interventions were required. Verified orders for PRN anti-hypertensives with correct blood pressure goal (SBP 120-140 mmHg) have been ordered for ongoing care.. Please feel free to contact me with any further questions. Name: Kimberly Matias Alea Phone: [phone] Date/Time: 05/30/2023 9:34 PM [facility] Work Phone: 05-30-2023 Physician Emergency department Note DEPARTMENT OF EMERGENCY MEDICINE CHIEF COMPLAINT No chief complaint on file. HPI Kaia Haley is a 67 y.o. female with history of GERD, HLD, hypothyroidism who presents as stroke alert. Has had confusion for several weeks, presented to outside hospital and had CT that showed possible subacute intraparenchymal hemorrhage. Patient subsequently transferred to [facility] for further evaluation as hemorrhage. LKW: unknown, confusion for several weeks Glucose: 105 PAST MEDICAL HISTORY Past medical history was reviewed and is non-contributory to the presenting problem other than: Past Medical History: Diagnosis Date GERD (gastroesophageal reflux disease) Hyperlipidemia Hypothyroidism SURGICAL HISTORY Past surgical history was reviewed and is non-contributory to the presenting problem other than: No past surgical history on file. CURRENT MEDICATIONS No current facility-administered medications for this encounter. Current Outpatient Medications Medication Sig Dispense Refill OMEPRAZOLE PO Take by mouth. Ondansetron 4 MG tablet Take 1 tablet by mouth every 8 hours as needed for Nausea / Vomiting or Nausea for up to 8 doses. 8 tablet 0 Rosuvastatin 5 MG tablet Take 1 tablet by mouth daily. ALLERGIES Allergies Allergen Reactions Penicillins Rash FAMILY HISTORY Family history was reviewed and is non-contributory to the presenting problem other than: No family history on file. SOCIAL HISTORY Social history was reviewed and is non-contributory to the presenting problem other than: Social History Socioeconomic History Marital status: Spouse [...] on file Housing Stability: Not on file PHYSICAL EXAM BP 138/72 Pulse 78 Resp 16 SpO2 93% Smoking Status Never General: Alert and oriented. In no acute distress. HEENT: Normocephalic and atraumatic. Eyes: EOMI. PERRL. Oropharynx: Mucous membranes moist. No lesions noted. Neck: Neck supple. Respiratory: Normal Respiratory effort. Clear to auscultation bilaterally. Cardiovascular: Normal Rate and Regular Rhythm. Normal S1 and S2. Abdomen: Soft, non-distended, non-tender. No rebound/guarding. Musculoskeletal: No deformities noted. Normal range of motion all extremities. Neurological: CN II-XII intact. Clear speech. Skin: No cyanosis. No rashes or excoriations noted on face, abd, or limbs. There is no height or weight on file to calculate BMI. NIHSS (Provider) Flowsheet Row First Filed Value Provider NIH Stroke Scale NIH Interval (Provider) admission filed on 05/30/20232131 NIH Level of Conciousness (Provider) 0 filed on 05/30/20232131 NIH LOC Questions (Provider) 0 filed on 05/30/20232131 NIH LOC Commands (Provider) 0 filed on 05/30/20232131 NIH Best Gaze (Provider) 0 filed on 05/30/20232131 NIH Visual (Provider) 0 filed on 05/30/20232131 NIH Facial Palsy (Provider) 0 filed on 05/30/20232131 NIH Left Arm Motor (Provider) 0 filed on 05/30/20232131 NIH Right Arm Motor (Provider) 0 filed on 05/30/20232131 NIH Left Leg Motor (Provider) 0 filed on 05/30/2023 213 NIH Right Leg Motor (Provider) 0 filed on 05/30/20232131 NIH Limb Ataxia (Provider) 0 filed on 05/30/20232131 NIH Sensory (Provider) 0 filed on 05/30/20232131 NIH Best Language (Provider) 0 filed on 05/30/20232131 NIH Dysarthria (Provider) 0 filed on 05/30/20232131 NIH Extinction and Inattention (Provider) 0 filed on 05/30/20232131 NIH Total Score (Provider) 0 filed on 05/30/20232131 Is NIH=0 Within 180 min of Last Known Well Time? -- ED COURSE & MEDICAL DECISION MAKING Assessment: Kaia Haley is a 67 y.o. female who presents as a Stroke Alert with the following neurological deficits: confusion. The patient was met in the CT scanner by myself and the Neurology team. The patient was found to be hemodynamically stable and protecting airway. DDx: cerebrovascular accident, transient ischemic attack, complex migraine, seizure, metabolic abnormalities, intracranial mass Plan: - Stroke Alert - Labs: CBC, chemistries, coags, LFTs, POC glucose - Imaging: CT Head w/o contrast, CTA - BP control - Neuro checks - Neurovascular consult ED Course and Medical Decision-Making: Initial NIH 0 The patient has persistent symptoms. Per Neurovascular service, she is to be admitted to their service. This note was dictated using dictation software. Attempts at proofreading have been made, however errors may still occasionally occur. Julia Davis DO Resident 05/30/23 4593 [facility] Work Phone: 05-30-2023 Emergency department Note ED SW responded to hemorrhagic stroke. Pt is a transfer from [facility] Physicians medic #[id number], who reports spouse is aware of transfer, but will not be coming to [facility] ED tonight. Pt is alert and following commands appropriately at this time. Spouse's number for medical updates: Enmanuel Haley Spouse [phone] Pt also has her adult child listed: Mariely Tello Child [phone] SW to remain available for any additional needs. KUMAR Fernandez [phone] Addend: Son at bedside. Son denies any needs at this time. KUMAR Fernandez [phone] [facility] 05-30-2023 Emergency department Note Bed: E036 Expected date: Expected time: Means of arrival: Comments: sudha [facility] 04-09-2023 Instructions [facility], OD - 04/09/2023 [...] [facility] 04-09-2023 History of Present illness Narrative ASSESSMENT/PLAN: 1. Hyperopia of both [...] CL check wearing most comfortable. [facility], OD I have confirmed and edited as necessary the relevant ophthalmic history, ROS, and the neuro exam findings as obtained by others. I have seen and examined this patient. documented in this encounter [facility] 09-01-2022 History of Present illness Narrative Patient identified by name and [...] direct supervision of Zoya Schmitz PTA. [facility] [place] Work Phone: 06-15-2022 Physician Emergency department Note Emergency Department Report [facility] EMERGENCY [facility]PARTMENT Service Date:.06/16/22 PCP: Edgar Holbrook Chief Complaint: Chief Complaint Patient presents with Abdominal Pain Pt c/o abdominal pain and nausea worsening throughout the day with fever. Pt denies vomiting. Pt reports exposed to strep; denies sore throat, cough. HPI Kaia Haley is a 67 y.o. female presents to the ED today due to Abdominal pain. Patient states she's had upper abdominal pain that started this morning. She's had nausea without vomiting. She states 3 days ago she did have several episodes of diarrhea but that resolved. Prior abdominal surgery for endometriosis. She did not take any medication [id number] for symptomatic relief. Review of Systems: Review [...] -- -- -- -- 1.651 m (5' 5) 06/15/222020 128/71 99.8 F (37.7 C) Oral [...] YELLOW YELLOW APPEARANCE, URINE CLEAR CLEAR Specific [place], Urine >1.030 (H) 1.010 - 1.025 PH [...] . . Obed Hull MD 06/16/22 0059 [facility] 06-15-2022 Emergency department Note Emergency Department Report [facility]PART[facility] Service Date:.06/16/22 PCP: Edgar Holbrook Chief Complaint: Chief Complaint Patient presents with Abdominal Pain Pt c/o abdominal pain and nausea worsening throughout the day with fever. Pt denies vomiting. Pt reports exposed to strep; denies sore throat, cough. HPI Kaia Haley is a 67 y.o. female presents to the ED today due to Abdominal pain. Patient states she's had upper abdominal pain that started this morning. She's had nausea without vomiting. She states 3 days ago she did have several episodes of diarrhea but that resolved. Prior abdominal surgery for endometriosis. She did not take any medication [id number] for symptomatic relief. Review of Systems: Review [...] C) Oral 80 18 99 % -- 06/15/226 -- -- -- 90 18 100 % -- 06/15/222021 -- -- -- -- -- -- 1.651 m (5' 5) 06/15/222020 128/71 99.8 F (37.7 C) Oral [...] YELLOW YELLOW APPEARANCE, URINE CLEAR CLEAR Specific [place], Urine >1.030 (H) 1.010 - 1.025 PH [...] MD 06/16/22 0059 documented in this encounter [facility] 04-27-2022 Miscellaneous Notes faxed Mohan doing [...] daily. (Can try Summer mask, found on [employer] or at drug [employer]), followed by lid scrubs twice daily with dilute baby shampoo. Return precautions given. Follow up as needed documented in this encounter [facility] 03-07-2022 History of Present illness Narrative Still red and something still [...] daily. (Can try Summer mask, found on [employer] or at drug stores), followed by lid [...] daily. (Can try Summer mask, found on [employer] or at drug stores), followed by lid [...] [facility] 02-07-2022 History of Present illness Narrative Patient states that for about [...] daily. (Can try Summer mask, found on [employer] or at drug [employer]), followed by lid scrubs twice daily with [...] others. I have seen and examined Kaia Haley. I have discussed the case and the management of this patient's care with the Resident/Fellow, if applicable. I also have reviewed and agree with the assessment and plan as stated above and agree with all of its relevant components. Yobani Bailey II, OD documented in this encounter [facility] 01-26-2022 History of Present illness Narrative Assessment and Plan D23.111 Benign neoplasm of skin of right upper eyelid (primary encounter diagnosis) Comment: Recommend consult with Dr. Mccollum's group. Appointment made. I have confirmed and edited as necessary the relevant ophthalmic history, ROS, and the neuro exam findings as obtained by others. I have seen and examined Kaia Mancini Sudha. I have discussed the case and the [...] [facility] 01-12-2022 History of Present illness Narrative ASSESSMENT/PLAN: 1. Hordeolum externum of [...] room. Return as 2 weeks. Martha Bailey, OD I have confirmed and edited as [...] [facility] 12-13-2021 History of Present illness Narrative Kaia Haley is a 66 year old female who presents for problem visit of postmenopausal bleeding. Last week started spotting bright red blood and had to wear a pad for a couple of days. Denies any pain or cramping. Yesterday had small amount of darker brown blood. Postmenopausal over 15 years. No history of AUB. 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 Post-menopausal bleeding - ICD9: 627.1, ICD10: N95.0 (primary diagnosis) - PELVIC US WH - ENDOMETRIAL BIOPSY - SURGICAL PATHOLOGY 2. [...] which included preparing to see the patient, [id number] patient care, completing clinical documentation, obtaining and/or [...] in this encounter [facility] Evaluation note Diagnosis Post-menopausal bleeding- Primary Postmenopausal bleeding Abnormal uterine bleeding (AUB) Encounter for screening for malignant neoplasm of cervix Screening for malignant neoplasm of the cervix [facility] Diagnosis PMB (postmenopausal bleeding)- Primary Postmenopausal bleeding [facility] Diagnosis Hordeolum externum of right upper eyelid- Primary Hordeolum externum [facility] Diagnosis Benign neoplasm of skin of right upper eyelid- Primary [facility] noteNo assessment information availableWUniversity [facility]als [facility] Work Phone: Evaluation note* Diagnosis Chalazion of right upper eyelid- Primary Chalazion [facility] Diagnosis Chalazion right upper eyelid- Primary [facility] Diagnosis Pain of upper abdomen- Primary Abdominal pain, other specified site Nausea Nausea alone [facility] Hyperopia of both eyes- Primary Regular astigmatism of both eyes Regular astigmatism Presbyopia - Both Eyes Presbyopia [facility] Diagnosis Onset Date Resolution Status Back pain acute Bilirubinuria acute Confusion acute Spinal stenosis acute Urinary frequency acute [facility] Work Phone: Evaluation note* Diagnosis Brain bleed- Primary Intracerebral hemorrhage Brain bleed Intracerebral hemorrhage Cerebrovascular accident (CVA), unspecified mechanism [facility] Brain bleed Intracerebral hemorrhage [facility] Diagnosis PMB (postmenopausal bleeding)- Primary Postmenopausal bleeding Vaginal irritation Unspecified noninflammatory disorder of vagina Encounter for screening for malignant neoplasm of cervix Screening for malignant neoplasm of the cervix [facility] Diagnosis Bacterial vaginitis- Primary Vaginitis and vulvovaginitis, unspecified [facility] [...] range of motion/joint mobility and strength. [facility] Work Phone: History of Present illness Narrative* [...] . * Response to treatment: decreased pain. [facility] Work Phone: History of Present illness Narrative* [...] . * Response to treatment: decreased pain. [facility] Work Phone: History of Present illness NarrativePatient [...] while performing dyn activity to decrease back pain.[facility] Work Phone: Hisdtyz of Present illness Narrative* Patient needs cues for correct form and encouragement throughout PRE. * Added hip IR d/t excessive ER in B LE; L >R. * Cues to IR the hips during side steps d/t compensations. * Good technique with pelvic tilt in supine. * Continues with tightness to the R during LTR. * Guard with transfers. [facility] Work Phone: History of Present illness [...] to complete today's treatment with some difficulty. [facility] Work Phone: Hismbtz of Present illness Narrative* Reviewed HEP given [...] to complete today's treatment with some difficulty. [facility] Work Phone: History of Present illness Narrative* [...] to complete today's treatment with some difficulty. [facility] Work Phone: Hisnmfg of Present illness Narrative* Reviewed HEP given [...] to complete today's treatment with some difficulty. [facility] Work Phone: Hiswshe of Present illness Narrative* Cues to relax [...] to complete today's treatment with some difficulty. [facility] Work Phone: History of Present illness Narrative* Improved glute strength progression as able. * Improved ability to complete transfers with decreased guarding. * Improved core activation for standing DLS. * Response to treatment: decreased pain, decreased muscle guarding and improved posture. * Patient was able to complete today's treatment with some difficulty. [facility] Work Phone: Hisbabl of Present illness Narrative* Added more glute [...] complete today's treatment with some difficulty. [facility] History of Present illness Narrative* Improved control with [...] to complete today's treatment with some difficulty. [facility] Work Phone: History of Present illness Narrative* arrives to outpatient PT c/o . Pt presents with the following impairments: . These impairments contribute to difficulty in activity limitations and participation restrictions including . Thept s signs and symptoms are consistent with likely . The pt will benefit from skilled PT dvewtorw8p/week for 8 weeks to address the above stated impairments and functional limitations to maximize p articipation and ease in household, social, and work related activities. The pt has a prognosis when considering positive factors including with barriers such as . The pt verbalized understanding and agreement to goals and POC. Thank you for this referral and please call [phone] with any questions or concerns. * Clinical Presentation: Stable and/or uncomplicated characteristics. * Level of Complexity: low * Problem List: activity limitations, ADLs/IADLs/self care skills, decreased knowledge of HEP, flexibility, gait/locomotion, pain, participation restrictions, range of motion/joint mobility and strength. [facility] Work Phone: History of Present illness Narrative* Kaia Haley, a 67 year old female, arrives to [...] you for this referral and please call [phone] any questions or concerns. * Clinical Presentation: Stable and/or uncomplicated characteristics. * Level of Complexity: low * Problem List: activity limitations, ADLs/IADLs/self care skills, decreased knowledge of HEP, flexibility, gait/locomotion, pain, participation restrictions, range of motion/joint mobility and strength. [facility] Work Phone: History of Present illness Narrative* [...] direct supervision of Zoya Schmitz PTA. [facility] Work Phone: History of Present [...] direct supervision of Zoya Schmitz PTA. [facility] Work Phone: History of Present illness Narrative* Patient identified by name and * Patient 4 minutes late, and asked to leave early d/t dentist appt. Patient appropriately challengedwith palof press this date and able to tolerate proprioception with mild difficulty. Does demo slight difficulty with isometric palof walkout but able to complete reps. [facility] Work Phone: History of Present illness Narrative* Patient identified by name and * Mild exacerbation of pain with paloff DLS. * Improved eccentric control with bridges. * Decreased guarding with bed mobility and transfers. [facility] Work Phone: History of Present illness NarrativePatient identified by name and date of . Patient was able to progress with seated exercises and step ups with focus on TrA/glut contractions. She presented with palpable tension with STW that responded well with reduction of Sx after treatment.[facility] Work Phone: History of Present illness Narrative* Patient identified by name and date of . * Discussed with patient positions to help decrease pain, like sitting with lumbar support. * Also discussed positions to avoid like lumbar extension. * Fatigues quickly with resisted DLS and seated exercises on dynadisc. * Tightness along L piriformis this date with relief after STW completion. [facility] Work Phone: History of Present illness NarrativePt [...] and symptom management at this time. [facility] Work Phone: Hospital Discharge instructions* Attachments The following attachments cannot be sent through Care Everywhere. * Abdominal Pain (Hungarian) [facility] Attachments The following attachments cannot be sent through Care Everywhere. * [facility] SMOKING CESSATION LINKS [facility] (narrative)* Outpatient Procedure (Routine) - Pending Review Specialty Diagnoses / Procedures Referred By Contac t Referred To Contact [facility] Diagnoses Abnormal uterine bleeding (AUB) Procedures ENDOMETRIAL BIOPSY ENDOMETRIAL BX W/WO ENDOCERVIX BX W/O DILAT SPX Piper Rahman APRN.CNM [address] [place] [address] [address] Referral ID Status Reason Start Date Expiration Date Visits Requested Visits Authorized [id number] Pending Review Auto-Generat ed Referral 12/13/2021 12/13/2022 1 1 * Diagnostic Procedure Only (Routine) - Authorized Specialty Diagnoses / Procedures Referred By Contac t Referred To Contact [facility] Diagnoses Abnormal uterine bleeding (AUB) Procedures PELVIC US WHI US PELVIC NONOBSTETRIC REAL-TIME IMAGE COMPLETE Piper Rahman APRN.CNM [address] [place] [address] [place] [id number] Referral ID Status Reason Start Date Expiration Date Visits Requested Visits Authorized [id number] Authorized Auto-Generat ed Referral 12/13/2021 12/13/2022 1 1 [facility] for referral (narrative)No reason for referral information availableWUniversity Hospitals [facility] Work Phone: Reason for visit Narrative* Initial Evaluation . lumbar stenosis/spondylosis/spondylolisthesis. * Referred by: Chay Ramírez DO [facility] Work Phone: Reason for visit Narrative* Initial Evaluation . Sacrum disorder, lumbosacral IV disc, lumbosacral radiculitis/spondylosis, spondylolisthesis lumbar region, arthropathy of lumbar facet. * Referred by: Kait Oneil [facility] Work Phone: Reason for visit Narrative* Initial Evaluation . Sacrum disorder, lumbosacral IV disc, lumbosacral radiculitis/spondylosis, spondylolisthesis lumbar region, arthropathy of lumbar facet. * Referred by: Kait Oneil [facility] Work Phone: Summary Purpose Family History Relationship Condition Age at Onset Recorded Date/T andrew father Diabetes mellitus Unknown mother Parkinson's disease Unknown Advance Directives Documents on File Type Date Recorded Patient Sub Prior Expl anation Advance Directives and Livin g Will 07/25/2019 8:14 AM Documents on File Type Date Recorded Patient Sub Prior Expl anation Advance Directives and Livin g Will 07/25/2019 8:14 AM Advance Directive Response Recorded Date/ Time Living Will Yes January 28, 2022 8:08am Power of Tile Finisher Yes January 8:08am Name of Medical Power of Tile Finisher artur arevalo January 28, 2022 8:08am Advance Directive Response Recorded Date/ Time Name of Medical Power of Tile Finisher marquis haley-hus band May 30, 2023 3:39pm Living Will Yes May 30 3:39pm Power of Tile Finisher Yes May 30, 2023 3:39pm Latest Code Status on File Code Status Date Activated Date Inactivated Comments Full Code 05/30/2023 10:25 PM Reason for Referral Status Reason Specialty Diagnoses / Procedures Referre d By Contact Referred To Contact Closed Cardiology Diagnoses Palpitation Procedures Holter monitor - 24 hour Edgar Holbrook MD [address] [place] [address] Specialty Diagnoses / Procedures Referred By Contac t Referred To Contact Occupational Therapy Diagnoses Brain bleed Alyssa Schultz MD [facility] [address] [address] Referral ID Status Reason Start Date Expiration Date V isits Requested Visits Authorized [id number] New Request 06/01/2023 06/25/2024 1 1 Specialty Diagnoses / Procedures Referred By Contac t Referred To Contact Speech Therapy Diagnoses Brain bleed Alyssa Schultz MD [address] [place] [address] Referral ID Status Reason Start Date Expiration Date V isits Requested Visits Authorized [id number] New Request 06/01/2023 06/25/2024 1 1 Scheduling Instructions [facility] [address] [facility] [place] [address] Fax Outpatient Rehabilitation Outpatient [facility] [address], [address] [place] [address] FAX Outpatient Rehabilitation Outpatient Care [address] [place] [address] FAX [facility] at [address] [address] FAX [facility] [address] [place], [place] [id number] FAX Specialty Diagnoses / Procedures Referred By Contac t Referred To Contact Diagnoses Brain bleed Procedures MRI BRAIN WITH AND WITHOUT CONTRAST RI MRI BRAIN COMBO Alyssa Schultz MD [address] [place] [address] Referral ID Status Reason Start Date Expiration Date V isits Requested Visits Authorized [id number] New Request 06/01/2023 06/25/2024 1 1 Specialty Diagnoses / Procedures Referred By Contac t Referred To Contact Physical Therapy Diagnoses Brain bleed Alyssa Schultz MD [address] [place] [address] Referral ID Status Reason Start Date Expiration Date V isits Requested Visits Authorized [id number] New Request 06/01/2023 06/25/2024 1 1 Scheduling Instructions [facility] [address] [facility] [place] [address] Fax [facility] (Neck and Back Therapy) [address] [place] [address] FAX [facility] [address] [place] [address] FAX Outpatient Rehabilitation Outpatient [facility] [address] [facility] [facility], [address] [place] [address] FAX [facility] [address] [place] [address] FAX Physical Therapy at [facility] [address] [facility], [address] [place] [address] FAX [facility] [address] [place] [address] FAX Outpatient Rehabilitation Outpatient Care [address], [address] [place] [address] FAX [facility] [address] [facility], [address] [place] [address] FAX [facility] at [address], Room: [address] [place] [address] [phone] FAX [facility] [address] [facility], [address] [place] [address] FAX [facility] [address] [place] [address] [phone] FAX [facility]patient [facility] [place] [address], [address] [place] [address] FAX [facility] [address] [facility], [address] [place] [address] [phone] FAX Outpatient Rehabilitation Outpatient [facility] [address] [facility], [address] [place] [address] [phone] FAX [facility] [address] [facility] [address], [address] [place] [address] [phone] FAX [facility] [address] [facility] [facility], [place] [address] [phone] FAX [facility] [address] [place] [address] [phone] FAX Outpatient Rehabilitation Outpatient Care [address], [address] [place] [address] [phone] FAX [facility] [address] [place] [address] [phone] FAX Outpatient Care [address] [address] [phone] FAX [facility], Room [address] [place] [address] FAX Referral ID Status Reason Start Date Expiration Date V isits Requested Visits Authorized [id number] New Request 06/01/2023 06/25/2024 1 1 Specialty Diagnoses / Procedures Referred By Contac t Referred To Contact Neurology Diagnoses Brain bleed Alyssa Schultz MD [address] [place] [address] Referral ID Status Reason Start Date Expiration Date V isits Requested Visits Authorized [id number] New Request 06/01/2023 06/25/2024 1 1 Specialty Diagnoses / Procedures Referred By Contac t Referred To Contact Procedures DVT/VTE RISK ASSESSMENT Alyssa Schultz MD [address] [place] [address] Referral ID Status Reason Start Date Expiration Date V isits Requested Visits Authorized [id number] New Request 05/30/2023 06/23/2024 1 1 Specialty Diagnoses / Procedures Referred By Contac t Referred To Contact Procedures ECG Hussain Limon MD [address] [place] [address] Referral ID Status Reason Start Date Expiration Date V isits Requested Visits Authorized [id number] New Request 05/30/2023 06/23/2024 1 1 Referral ID Status Reason Start Date Expiration Date V isits Requested Visits Authorized [id number] New Request 05/30/2023 06/23/2024 1 1 Specialty Diagnoses / Procedures Referred By Contac t Referred To Contact Diagnoses Brain bleed Procedures MRI BRAIN WITHOUT CONTRAST MRI BRAIN WITH AND WITHOUT CONTRAST RI MRI BRAIN COMBO RI MRI BRAIN Melony Madsen MD [address] [place] [address] Assessments Diagnosis Palpitation Palpitations Chief Complaint and Reason for Visit Chief Complaint abdominal pain Chief Complaint URINARY CONCERNS urinary symptoms, confusion Reason for Visit Back pain Bilirubinuria Confusion Spinal stenosis Urinary frequency Chief Complaint URINARY CONCERNS urinary symptoms, confusion POSTMENOPAUSAL STROKE/RX HERE Reason for Visit Back pain Bilirubinuria Confusion Spinal stenosis Urinary frequency Chief Complaint Admit Date LOWER BACK PAIN July 22, 2024 3:3 1pm Chief Complaint Admit Date LOWER BACK PAIN July 22, 2024 3:3 1pm LUMBAR DISC DISEASE/ MUSCLE SPASM OF [place]KUMAR K August 18, 2024 9:37am Chief Complaint Admit Date LUMBAR DISC DISEASE/ MUSCLE SPASM OF [place]KUMAR K August 18, 2024 9:37am lower extremity November 28, 2024 12:4 1pm Medications Administered Section Inactive Administered Medications - up to 3 most recent administrations Medication Order MAR Action Action Date Dose Rate Site tropicamide 1 % 1 Drop (MYDRIACYL) 1 Drop, BOTH EYES, ONCE, 1 dose, On 04/09/23 at 1030, FOR THE EYE Given 04/09/2023 10:30 AM EST 1 Drop Additional Source Comments INFORMATION SOURCE (unrecogn ized section and content) DATE CREATED AUTHOR 01/08/2019 [facility] DATE CREATED AUTHOR AUTHOR'S ORGANIZ ATION 07/25/2019 [facility] DATE CREATED AUTHOR AUTHOR'S ORGANIZ ATION 07/31/2019 [facility] DATE CREATED AUTHOR AUTHOR'S ORGANIZ ATION 11/16/2021 [facility] [place] DATE CREATED AUTHOR AUTHOR'S ORGANIZ ATION 11/18/2022 [employer] DATE CREATED AUTHOR AUTHOR'S ORGANIZ ATION 11/18/2022 [facility] DATE CREATED AUTHOR AUTHOR'S ORGANIZ ATION 08/16/2023 [facility] DATE CREATED AUTHOR AUTHOR'S ORGANIZ ATION 02/16/2024 [facility] DATE CREATED AUTHOR AUTHOR'S ORGANIZ ATION 10/03/2024 [facility] DATE CREATED AUTHOR AUTHOR'S ORGANIZ ATION 11/29/2024 [facility] Reason for Visit (unrecogniz ed section and content) Status Reason Specialty Diagnoses / Procedures Referre d By Contact Referred To Contact Closed Cardiology Diagnoses Palpitation Procedures Holter monitor - 24 hour Edgar Holbrook MD [address] [place] [address] Reason Comments Vaginal Bleeding 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 Ultrasound Reason Comments Eye Crusting Right Eye [...] Reason Comments Yearly Exam Contact lens evaluation Specialty Diagnoses / Procedures Referred By Contac t Referred To Contact Diagnoses Brain bleed Hemorrhagic Stroke [facility] [address] [place] [address] [facility] [address] [place] [address] Referral ID Status Reason Start Date Expiration Date Visits Re quested Visits Authorized [id number] 1 1 Specialty Diagnoses / Procedures Referred By Contac t Referred To Contact Diagnoses Brain bleed Procedures MRI BRAIN WITHOUT CONTRAST MRI BRAIN WITH AND WITHOUT CONTRAST RI MRI BRAIN COMBO RI MRI BRAIN Melony Madsen MD [address] [place] [address] Referral ID Status Reason Start Date Expiration Date V isits Requested Visits Authorized [id number] New Request 06/01/2023 06/25/2024 1 1 Source Comments (unrecognize d section and content) [...] Care Teams (unrecognized sec tion and content) College Intern Relationship Specialty Start Date End Date Edgar Holbrook [address] [facility] [address] PCP - General 07/25/04 College Intern Relationship Specialty Start Date End Date Edgar Holbrook [address] [place] [address] PCP - General 07/25/04 College Intern Relationship Specialty Start Date End Date Edgar Holbrook [address] [place] [address] PCP - General 07/25/04 College Intern Relationship Specialty Start Date End Date Edgar Holbrook [address] [place] [address] PCP - General 07/25/04 College Intern Relationship Specialty Start Date End Date Edgar Holbrook [address] [place] [address] PCP - General 07/25/04 College Intern Relationship Specialty Start Date End Date Edgar Holbrook [address] [place] [address] PCP - General 07/25/04 College Intern Relationship Specialty Start Date End Date Edgar Holbrook MD [address] [place] [id number] PCP - General Family Medicine 06/15/22 College Intern Relationship Specialty Start Date End Date Edgar Holbrook [address] [place] [address] PCP - General 07/25/04 Team Status: Active Member Role Status Dates Dr. Edgar Holbrook MD Family Provider Active Dr. Edgar Holbrook MD Primary Care Provider Active Team Status: Inactive Member Role Status Dates Dr. Edgar Holbrook MD Primary Care Provider, [facility] Active Fortunato Peña PA, PA Attending Provider Active Team Status: Inactive Member Role Status Dates Dr. Edgar Holbrook MD Primary Care Provider Active Dr. Oliver Briggs MD Emergency Provider Active College Intern Relationship Specialty Start Date End Date Edgar Holbrook MD PCP - General Family Medicine 06/15/22 05/31/23 Paulo Sahnkar MD [address] [phone] PCP - General Internal Medicine 06/01/23 Team Status: Active Member Role Status Dates Dr. Edgar Holbrook MD Family Provider Active Dr. Romeo Shankar MD Primary Care Provider Active Team Status: Inactive Member Role Status Dates Dr. Edgar Holbrook MD Primary Care Provider Active Dr. Romeo Shankar MD Attending Provider Active Team Status: Inactive Member Role Status Dates Dr. Romeo Shankar MD Primary Care Provi smith, Attending Provider, Referring Provider Active Team Status: Inactive Member Role Status Dates Dr. Edgar Holbrook MD Primary Care Provider Active Dr. Oliver Briggs MD Attending Provider, Emergency Pro vider Active Team Status: Active Member Role Status Dates Dr. Romeo Shankar MD Primary Care Provi smith, Attending Provider, Referring Provider Active Team Status: Inactive Member Role Status Dates Dr. Romeo Shankar MD Primary Care Provider, Attending Provider Active College Intern Relationship Specialty [place] [address] [place] [phone] PCP - General Internal Medicine 06/01/23 Team Status: Inactive Member Role Status Dates Dr. Romeo Shankar MD Primary Care Provider Active Start: June 05, 2024 End: June 05, 2024 Dr. Romeo Shankar MD Attending Provider Active Start: June 05, 2024 End: June 05, 2024 Team Status: Active Member Role Status Dates Dr. Romeo Shankar MD Primary Care Provider Active Start: July 22, 2024 Dr. Romeo Shankar MD Attending Provider Active Start: July 22, 2024 Dr. Romeo Shankar MD Referring Provider Active Start: July 22, 2024 Team Status: Inactive Member Role Status Dates Dr. Romeo Shankar MD Primary Care Provider Active Start: July 22, 2024 End: July 22, 2024 Dr. Romeo Shankar MD Attending Provider Active Start: July 22, 2024 End: July 22, 2024 Team Status: Inactive Member Role Status Dates Dr. Romeo Shankar MD Primary Care Provider Active Start: July 22, 2024 End: July 22, 2024 Dr. Romeo Shankar MD Attending Provider Active Start: July 22, 2024 End: July 22, 2024 Dr. Romeo Shankar MD Referring Provider Active Start: July 22, 2024 End: July 22, 2024 Team Status: Active Member Role Status Dates Dr. Romeo Shankar MD Primary Care Provider Active Team Status: Inactive Member Role Status Dates Dr. Romeo Shankar MD Primary Care Provider Active Start: August 18, 2024 End: August 18, 2024 Dr. Romeo Shankar MD Attending Provider Active Start: August 18, 2024 End: August 18, 2024 Dr. Romeo Shankar MD Referring Provider Active Start: August 18, 2024 End: August 18, 2024 Team Status: Active Member Role/Relationship Status Dates Dr. Romeo Shankar MD Primary Care Provider Active Team Status: Inactive Member Role/Relationship Status Dates Dr. Romeo Shankar MD Primary Care Provider Active Start: August 18, 2024 End: August 18, 2024 Dr. Romeo Shankar MD Attending Provider Active Start: August 18, 2024 End: August 18, 2024 Dr. Romeo Shankar MD Referring Provider Active Start: August 18, 2024 End: August 18, 2024 Team Status: Inactive Member Role/Relationship Status Dates Dr. Romeo Shankar MD Primary Care Provider Active Start: November 28, 2024 End: November 28, 2024 Ed Physician Provider Emergency Provider Active Start: November 28, 2024 End: November 28, 2024 Goals (unrecognized section and content) Goals may be documented in a n alternate sectionGoals may be documented in an alternate sectionGoals may be documented in an alternate sectionGoals may be documented in an alternate sectionGoals may be documented in an alternate sectionGoals may be documented in an alternate sectionGoals may be documented in an alternate sectionGoals may be documented in an alternate section Scheduled Active and Recently Administ ered Medications (unrecognized section and content) Medication Order 06/13/2022 06/14/2022 06/15/2022 HYDROmorphone (DILAUDID) injection 0.5 mg (COMPLETED) 0.5 mg, Intravenous, ONCE, 1 dose, On Nayely 06/15/22 at 2115 210 (Given - Provid er: Marika Easton RN) iohexol (OMNIPAQUE) 350 MG/ML injection 75 mL (COMPLETED) 75 mL, Intravenous, ONCE, 1 dose, On Nayely 06/15/22 at 2215, Extravasation Risk, Radiology Procedure 2148 (Given - Radiol ogy - Provider: Winter Uribe) Ondansetron 4mg/2ml (ZOFRAN) injection 4 mg (COMPLETED) 4 mg, Intravenous, ONCE, 1 dose, On Nayely 06/15/22 at 2115 2101 (Given - Provid er: Marika Easton RN) Sodium chloride 0.9% IV solution 1,000 mL (COMPLETED) 1,000 mL, Intravenous, ONCE, 1 dose, On Nayely 06/15/22 at 2115 210 ($$New Bag$$ - Provider: Marika Easton RN)2305 (Stopped - Provider: Marika Easton RN) Sodium chloride 0.9% IV solution 75 mL (COMPLETED) 75 mL, Intravenous, ONCE, 1 dose, On Nayely 06/15/22 at 2215, Radiology Procedure 2148 ($$New Bag$$ - Provider: Winter Uribe)2201 (Stopped - Provider: Marika Easton RN) Scheduled Medication Order 05/30/2023 05/31/2023 06/01/2023 Enoxaparin Sodium (LOVENOX) injection 40 mg(Linked Group 1) 40 mg, Subcutaneous, DAILY, First dose on Sun06/01/23 at 1100, Until Discontinued, Indications: DVT/PE prophylaxis 1130 (Not Given - Provider: Balbina Garcia RN - Reason: Patient/family refused) gadoterate Meglumine (DOTAREM) 5 MMOL/10ML injection 3-60 mL (COMPLETED) 3-60 mL, Intravenous, ONCE, 1 dose, On Nayely 05/31/23 at 0130, Extravasation Risk, MR Procedure 013 (Given - Radiology - Provider: Maddie Reeder) iohexol (OMNIPAQUE) 350 MG/ML injection 1-171 mL (COMPLETED) 1-171 mL, Intravenous, ONCE, 1 dose, On Sun05/30/23 at 2215, Extravasation Risk, CT Procedure 2138 (Given - Radiology - Provider: Brittney Cast - Comment: 20 g left ac) iohexol (OMNIPAQUE) 350 MG/ML injection 1-171 mL (COMPLETED) 1-171 mL, Intravenous, ONCE, 1 dose, On Sun05/31/23 at 0445, Extravasation Risk, CT Procedure 0437 (Given - Radiology - Provider: Chay Hernandez) Levothyroxine (SYNTHROID) tablet 50 mcg 50 mcg, Oral, DAILY, First dose on Sun05/31/23 at 0900, Until Discontinued 921 (Given - Provider: Ashely Christensen RN) 08 (Given - Provider: Balbina Garcia RN) Ondansetron 4mg/2ml (ZOFRAN) injection 8 mg (COMPLETED) 8 mg, Intravenous, ONCE, 1 dose, On Sun05/31/23 at 0515 0436 (Given - Provider: Alirio Corey, RN) Pantoprazole (PROTONIX) tablet DR 40 mg 40 mg, Oral, DAILY, First dose on Sun05/31/23 at 0900, Until Discontinued, Swallow whole; do not crush or chew., Indications: Continuation of Home Therapy 921 (Given - Provider: Ashely Christensen RN) 08 (Given - Provider: Balbina Garcia RN) Rosuvastatin (CRESTOR) tablet 5 mg 5 mg, Oral, DAILY, First dose on Sun05/31/23 at 0900, Until Discontinued 921 (Given - Provider: Ashely Christensen RN) 08 (Given - Provider: Balbina Garcia RN) Senna (SENOKOT) tablet 8.6 mg(Linked Group 2) 8.6 mg, Oral, DAILY, First dose on Sun05/31/23 at 0900, Until Discontinued 0850 (Not Given - Provider: Ashely Christensen RN - Reason: Other) 0828 (Not Given - Provider: Balbina Garcia RN - Reason: Patient/family refused) Senna (SENOKOT) tablet 8.6 mg(Linked Group 2) 8.6 mg, Per NG tube, DAILY, First dose on Sun05/31/23 at 0900, Until Discontinued 0850 (See Alternative - Provider: Ashely Christensen RN) 0828 (See Alternative - Provider: Balbina Garcia RN) Continuous Medication Order 05/30/2023 05/31/2023 06/01/2023 sodium chloride 0.9% 1,000 ml with potassium chloride 20 mEq premix IV solution (CANCELED) Intravenous, at 75 mL/hr, CONTINUOUS, Starting on Sun05/30/23 at 2230, Until Sun05/31/23 at 1535 2257 ($$New Bag$$ - Provider: Alirio Corey RN)2257 (Rate/Dose Verify - Provider: Alirio Corey RN) 0105 (Rate/Dose Verify - Provider: Alirio Corey RN)0112 (Paused - Provider: Alirio Corey RN)0158 (Paused - Provider: Alirio Corey RN)0158 (Restarted - Provider: Alirio Corey RN)0305 (Paused - Provider: Alirio Corey RN)0307 (Restarted - Provider: Alirio Corey RN)0312 (Rate/Dose Verify - Provider: Alirio Corey RN)0403 (Paused - Provider: Alirio Corey RN)0419 (Paused - Provider: Alirio Corey RN)0434 (Restarted - Provider: Alirio Corey RN)0438 (Paused - Provider: Alirio Corey RN)0442 (Paused - Provider: Alirio Corey RN)0442 (Restarted - Provider: Alirio Corey RN)0610 (Rate/Dose Verify - Provider: Alirio Corey RN)0831 (Rate/Dose Verify - Provider: Ashely Christensen RN)1035 (Rate/Dose Verify - Provider: Ashely Christensen RN)1238 (Rate/Dose Verify - Provider: Ashely Christensen RN)1326 ($$New Bag$$ - Provider: Ashely Christensen RN)1545 (Stopped - Provider: Ignacia Humphreys RN) PRN Medication Order 05/30/2023 05/31/2023 06/01/2023 Acetaminophen (TYLENOL) tablet 325 mg(Linked Group 3) 325 mg, Oral, EVERY 4 HOURS NEEDED, Starting on Sun05/30/23 at 2223, Until Sun06/01/23 at 1816, Mild Pain, Moderate Pain, Maximum dose of acetaminophen is 4000 mg from all sources in 24 hours. Acetaminophen (TYLENOL) tablet 325 mg(Linked Group 3) 325 mg, Per NG tube, EVERY 4 HOURS NEEDED, Starting on Sun05/30/23 at 2223, Until Sun06/01/23 at 1816, Mild Pain, Moderate Pain, Maximum dose of acetaminophen is 4000 mg from all sources in 24 hours. Acetaminophen (TYLENOL) tablet 650 mg(Linked Group 3) 650 mg, Oral, EVERY 4 HOURS NEEDED, Starting on Sun05/30/23 at 2223, Until Sun06/01/23 at 1816, Severe Pain, Oral temp > 99.5, Maximum dose of acetaminophen is 4000 mg from all sources in 24 hours. Acetaminophen (TYLENOL) tablet 650 mg(Linked Group 3) 650 mg, Per NG tube, EVERY 4 HOURS NEEDED, Starting on Sun05/30/23 at 2223, Until Sun06/01/23 at 1816, Severe Pain, Oral temp > 99.5, Maximum dose of acetaminophen is 4000 mg from all sources in 24 hours. hydrALAZINE (APRESOLINE) injection 10 mg(Linked Group 4) 10 mg, Intravenous, EVERY 1 HOUR NEEDED, Starting on Sun05/30/23 at 2223, Until Sun06/01/23 at 181, Other, SBP > 140 mmHg with HR < 60 bpm, Use as initial dose. Use if Heart Rate LESS THAN 60 beats per minute. Higher dose may be administered if lower dose was previously documented as ineffective 10 minutes after administration and did not result in adverse effects (HR>90). 0222 (Given - Provider: Alirio Corey RN - Comment: SBP: 146HR: 62) hydrALAZINE (APRESOLINE) injection 20 mg(Linked Group 4) 20 mg, Intravenous, EVERY 1 HOUR NEEDED, Starting on Sun05/30/23 at 2223, Until Sun06/01/23 at 181, Other, SBP > 140 mmHg with HR < 60 bpm, Use if Heart Rate LESS THAN 60 beats per minute. Higher dose may be administered if lower dose was previously documented as ineffective 10 minutes after administration and did not result in adverse effects (HR>90). Decrease back to lower dose if patient has adverse effects, or no PRN used in previous 3 hours. 0222 (See Alternative - Provider: Alirio Corey RN) Labetalol (NORMODYNE) injection 10 mg(Linked Group 5) 10 mg, Intravenous, EVERY 1 HOUR NEEDED, Starting on Sun05/30/23 at 2223, Until Sun06/01/23 at 1816, SBP > 140 mmHg with HR >60 bpm, Use as initial dose. Use if Heart Rate GREATER THAN 60 beats per minute. Higher dose may be administered if lower dose was previously documented as ineffective 10 minutes after administration and did not result in adverse effects (HR<60). For vials: labetalol should be treated as a SINGLE USE VIAL. Discard remaining contents after one use. 0015 (See Alternative - Provider: Alirio Corey RN)0304 (See Alternative - Provider: Alirio Corey RN) Labetalol (NORMODYNE) injection 20 mg(Linked Group 5) 20 mg, Intravenous, EVERY 1 HOUR NEEDED, Starting on Sun05/30/23 at 2223, Until Sun06/01/23 at 1816, SBP > 140 mmHg with HR >60 bpm, Use if Heart Rate GREATER THAN 60 beats per minute. Higher dose may be administered if lower dose was previously documented as ineffective 10 minutes after administration and did not result in adverse effects (HR<60). Decrease back to lower dose if patient has adverse effects, or no PRN used in previous 3 hours. For vials: labetalol should be treated as a SINGLE USE VIAL. Discard remaining contents after one use. 0015 (Given - Provider: Alirio Corey RN)0304 (Given - Provider: Alirio Corey RN - Comment: HR: 82SBP: 146) Metoclopramide (REGLAN) injection 10 mg 10 mg, Intravenous, EVERY 6 HOURS NEEDED, Starting on Nayely 05/31/23 at 1215, Until Sun06/01/23 at 1816, Refractory Nausea Vomiting, If given via IV route: administer slowly over 2 minutes. 1329 (Given - Provider: Ashely Christensen RN) Ondansetron (ZOFRAN) tablet 4 mg(Linked Group 6) 4 mg, Oral, EVERY 6 HOURS NEEDED, Starting on Sun05/30/23 at 2223, Until Sun06/01/23 at 1816, Nausea / Vomiting 0927 (See Alternative - Provider: Ashely Christensen, LAURA) Ondansetron 4mg/2ml (ZOFRAN) injection 4 mg(Linked Group 6) 4 mg, Intravenous, EVERY 6 HOURS NEEDED, Starting on Sun05/30/23 at 2223, Until Sun06/01/23 at 1816, Nausea / Vomiting 0927 (Given - Provider: Ashely Christensen, LAURA) Polyethylene glycol (MIRALAX) packet 17 g(Linked Group 7) 17 g, Oral, DAILY NEEDED, Starting on Sun05/30/23 at 2223, Until Sun06/01/23 at 1816, Constipation If No Bowel Movement in 48 Hours Polyethylene glycol (MIRALAX) packet 17 g(Linked Group 7) 17 g, Per NG tube, DAILY NEEDED, Starting on Sun05/30/23 at 2223, Until Sun06/01/23 at 181, Constipation If No Bowel Movement in 48 Hours Sodium chloride (PF) 0.9 % injection 1-100 mL (COMPLETED) 1-100 mL, Intravenous, ONCE NEEDED, 1 dose, Starting on Sun05/30/23 at 2139, Until Sun05/30/23 at 2140, Flush, CT Procedure 2139 (Given - Provider: Brittney Cast - Comment: 20g left ac) Sodium chloride (PF) 0.9 % injection 1-100 mL (COMPLETED) 1-100 mL, Intravenous, ONCE NEEDED, 1 dose, Starting on Sun05/31/23 at 0436, Until Sun05/31/23 at 0438, Flush, CT Procedure 043 (Given - Provider: Chay Hernandez) Linked Groups Order Group 1: Enoxaparin Sodium (LOVENOX) injection 40 mgJump to med 40 mg, Subcutaneous, DAILY, First dose on Sun06/01/23 at 1100, Until Discontinued, Indications: DVT/PE prophylaxis And PLATELET COUNT - baseline (COMPLETED) Routine, ONE TIME, On Sun06/01/23 at 1017, For 1 occurrence, Use existing specimen And PLATELET COUNT (CANCELED) Routine, EVERY 3 DAYS AM LAB, First occurrence on Sun06/04/23 at 0500, Until Specified, New collection Group 2: Senna (SENOKOT) tablet 8.6 mgJump to med 8.6 mg, Oral, DAILY, First dose on Sun05/31/23 at 0900, Until Discontinued Or Senna (SENOKOT) tablet 8.6 mgJump to med 8.6 mg, Per NG tube, DAILY, First dose on Sun05/31/23 at 0900, Until Discontinued Group 3: Acetaminophen (TYLENOL) tablet 325 mgJump to med 325 mg, Oral, EVERY 4 HOURS NEEDED, Starting on Sun05/30/23 at 2223, Until Sun06/01/23 at 1816, Mild Pain, Moderate Pain, Maximum dose of acetaminophen is 4000 mg from all sources in 24 hours. Or Acetaminophen (TYLENOL) tablet 325 mgJump to med 325 mg, Per NG tube, EVERY 4 HOURS NEEDED, Starting on Sun05/30/23 at 2223, Until Sun06/01/23 at 1816, Mild Pain, Moderate Pain, Maximum dose of acetaminophen is 4000 mg from all sources in 24 hours. Or Acetaminophen (TYLENOL) tablet 650 mgJump to med 650 mg, Oral, EVERY 4 HOURS NEEDED, Starting on Sun05/30/23 at 2223, Until Sun06/01/23 at 1816, Severe Pain, Oral temp > 99.5, Maximum dose of acetaminophen is 4000 mg from all sources in 24 hours. Or Acetaminophen (TYLENOL) tablet 650 mgJump to med 650 mg, Per NG tube, EVERY 4 HOURS NEEDED, Starting on Sun05/30/23 at 2223, Until Sun06/01/23 at 181, Severe Pain, Oral temp > 99.5, Maximum dose of acetaminophen is 4000 mg from all sources in 24 hours. Group 4: hydrALAZINE (APRESOLINE) injection 10 mgJump to med 10 mg, Intravenous, EVERY 1 HOUR NEEDED, Starting on Sun05/30/23 at 2223, Until Sun06/01/23 at 1816, Other, SBP > 140 mmHg with HR < 60 bpm, Use as initial dose. Use if Heart Rate LESS THAN 60 beats per minute. Higher dose may be administered if lower dose was previously documented as ineffective 10 minutes after administration and did not result in adverse effects (HR>90). Or hydrALAZINE (APRESOLINE) injection 20 mgJump to med 20 mg, Intravenous, EVERY 1 HOUR NEEDED, Starting on Sun05/30/23 at 2223, Until Sun06/01/23 at 1816, Other, SBP > 140 mmHg with HR < 60 bpm, Use if Heart Rate LESS THAN 60 beats per minute. Higher dose may be administered if lower dose was previously documented as ineffective 10 minutes after administration and did not result in adverse effects (HR>90). Decrease back to lower dose if patient has adverse effects, or no PRN used in previous 3 hours. Group 5: Labetalol (NORMODYNE) injection 10 mgJump to med 10 mg, Intravenous, EVERY 1 HOUR NEEDED, Starting on Sun05/30/23 at 2223, Until Sun06/01/23 at 1816, SBP > 140 mmHg with HR >60 bpm, Use as initial dose. Use if Heart Rate GREATER THAN 60 beats per minute. Higher dose may be administered if lower dose was previously documented as ineffective 10 minutes after administration and did not result in adverse effects (HR<60). For vials: labetalol should be treated as a SINGLE USE VIAL. Discard remaining contents after one use. Or Labetalol (NORMODYNE) injection 20 mgJump to med 20 mg, Intravenous, EVERY 1 HOUR NEEDED, Starting on Sun05/30/23 at 2223, Until Sun06/01/23 at 1816, SBP > 140 mmHg with HR >60 bpm, Use if Heart Rate GREATER THAN 60 beats per minute. Higher dose may be administered if lower dose was previously documented as ineffective 10 minutes after administration and did not result in adverse effects (HR<60). Decrease back to lower dose if patient has adverse effects, or no PRN used in previous 3 hours. For vials: labetalol should be treated as a SINGLE USE VIAL. Discard remaining contents after one use. Group 6: Ondansetron 4mg/2ml (ZOFRAN) injection 4 mgJump to med 4 mg, Intravenous, EVERY 6 HOURS NEEDED, Starting on Sun05/30/23 at 2223, Until Sun06/01/23 at 1816, Nausea / Vomiting Or Ondansetron (ZOFRAN) tablet 4 mgJump to med 4 mg, Oral, EVERY 6 HOURS NEEDED, Starting on Sun05/30/23 at 2223, Until Sun06/01/23 at 1816, Nausea / Vomiting Group 7: Polyethylene glycol (MIRALAX) packet 17 gJump to med 17 g, Oral, DAILY NEEDED, Starting on Sun05/30/23 at 2223, Until Sun06/01/23 at 1816, Constipation If No Bowel Movement in 48 Hours Or Polyethylene glycol (MIRALAX) packet 17 gJump to med 17 g, Per NG tube, DAILY NEEDED, Starting on Sun05/30/23 at 2223, Until Sun06/01/23 at 181, Constipation If No Bowel Movement in 48 Hours FOR RECORDS PERTAINING TO PATIENTS WHO ARE [...] BE BASED ON THE PRIMARY CLINICAL RECORDS. [facility]. provides no warranty or guarantee of the accuracy or completeness of information in this document.
== END | disposition home or self-care (01) ==
LOC: CVS 13:10
PROVIDERS: PCP Family Medicine Geriatric Medicine; Referring Provider Family Medicine Geriatric Medicine; Visit Provider Family Medicine Geriatric Medicine
DX: R60.9 Edema, unspecified (principal); M79.89 Other specified soft tissue disorders
CPT/HCPCS: 93970

== ENCOUNTER 2024-12-27 09:31 | Emergency (ER) | payer MEDICARE, BC, SELFPAY ==
[2024-12-27 09:32] VITALS: BP 141/72; PULSE 50; RESP 18; TEMP 37; O2SAT 97; BMI 31.8
--- NOTE | 2024-12-27 09:53 | CT_ITS ---
PROCEDURE: ABDOMEN/PELVIS W IV CONT ONLY 12/27/2024 REASON FOR EXAM: RIGHT SIDED ABD PAIN TECHNIQUE: ABDOMEN/PELVIS W IV CONT ONLY Coronal and Sagittal reconstruction series were provided. CONTRAST: Isovue 370 VOLUME: 100 mL One or more dose reduction techniques were used (e.g., Automated exposure control, adjustment of the mA and/or kV according to patient size, use of iterative reconstruction technique. RADIATION DOSE SUMMARY: CTDlvol: 23.79 mGy DLP: 1262.27 mGycm COMPARISON: CT abdomen and pelvis 07/22/2024. FINDINGS: Lung bases: Clear. Liver: Unremarkable. Gallbladder: Nondistended. No biliary dilation. Spleen: Unremarkable. Pancreas: Unremarkable. Adrenals: Unremarkable. Kidneys: No hydronephrosis. No nephrolithiasis. Bladder: Unremarkable. Reproductive Organs: Unremarkable. Bowel: Sigmoid colon diverticulosis with no evidence of acute diverticulitis. Appendix: No evidence of acute appendicitis. Lymph nodes: No lymphadenopathy. Vasculature: No aneurysm. Mild atherosclerotic calcifications. Peritoneum / Retroperitoneum: No free air or free fluid. Bones: No acute bony abnormalities. CT/Abdomen/Pelvis W IV Cont ONLY IMPRESSION: No acute abdominopelvic abnormalities. Reading Location: [facility] [place]
--- NOTE | 2024-12-27 09:54 | ED.VIS.GI ---
HPI HPI - GI History of Present Illness Chief Complaint: Abd Pain Informant: patient Narrative Narrative: 69-year-old female states she woke up this morning with burning pain in her right abdomen that radiates to her low back feels a little sharp there. She had a very small bowel movement this morning that did not seem to make a difference. No urinary symptoms, no nausea or vomiting. No fevers or chills or chest symptoms. No history of any abdominal surgeries in the past. She has been having constipation/bowel movement caliber changes in the past month, so she had a colonoscopy because of that about a week ago and was told she has diverticulosis but was otherwise unremarkable. She states she did not have any discomfort after dinner last night or prior to going to bed at all, and she has not had anything to eat yet today. [facility] Medical History Bilirubinuria Urinary frequency Confusion Spinal stenosis Back pain Hyperlipidemia GERD (gastroesophageal reflux disease) Osteoarthritis Hypothyroid Home Medications ?Medication ?Instructions ?Recorded ?Last Taken ?Type levothyroxine 50 mcg tablet 50 mcg PO DAILY 05/04/20 05/12/20 History omeprazole 20 mg capsule,delayed 20 mg PO DAILY PRN GERD 05/04/20 05/12/20 History release rosuvastatin 10 mg tablet 5 mg PO DAILY 05/04/20 Unknown History cholecalciferol (vitamin D3) 50 50 mcg PO DAILY 05/30/23 Unknown History mcg (2,000 unit) capsule (Vitamin D3) Allergy/AdvReac Type Severity Reaction Status Date / Time Penicillins Allergy Mild Rash Verified 12/27/24 09:32 Family History Father Diabetes Mother Parkinson disease Surgical History History of radiofrequency ablation (RFA) of nerve of lumbar spine H/O laparoscopy Social History household members: spouse housing: house Smoking Status: Never smoker alcohol intake: never what type of physical activity do you participate in: none do you feel safe at home: Yes ROS ROS ED Constitutional Constitutional ED: Denies chills or fever(s) Eyes Eyes: Denies change in vision or diplopia ENT ENT ED: Denies rhinorrhea or sore throat Cardiovascular Cardiovascular: Denies chest pain or palpitations Respiratory/Chest Respiratory/Chest: Denies cough or dyspnea Gastrointestinal Gastrointestinal: Reports abdominal pain and constipation; Denies diarrhea, hematochezia, melena, nausea or vomiting Genitourinary Genitourinary ED: Denies dysuria or hematuria Musculoskeletal Musculoskeletal: Denies back pain or neck pain Integumentary Denies abscess or rash Neurologic Neurologic: Denies headache(s), paresthesias or weakness Psychiatric Psychiatric: Denies anxiety or suicidal thoughts EXAM Physical Exam Const Vital Signs: 12/27/24 09:32 12/27/24 11:31 Temperature 98.6 F Temperature Source Oral Pulse Rate 50 L 49 L Respiratory Rate 18 Blood Pressure 141/72 H 130/70 H Blood Pressure Mean 95 90 Pulse Ox 97 96 Oxygen Delivery Method Room Air Room Air Positive well nourished and well developed Constitutional Narrative: Well-appearing no distress General Appearance ED: well developed and NAD HEENT Reports moist mucous membranes normocephalic and atraumatic Eyes PERRL and EOMs intact bilaterally Neck full ROM and supple Resp normal respiratory effort and clear to auscultation bilaterally Cardio regular rate, regular rhythm and no murmurs GI non-distended GI Narrative: Mild tenderness throughout the right abdomen from about McBurney's point all the way up to the lateral aspect of the costal margin. No guarding or rebound. Negative [place]. No other areas of abdominal tenderness, normal inspection of the abdominal wall and no palpable masses. Auscultation: normoactive bowel sounds Palpation: soft Back/Spine no CVA tenderness General Back: other FROM Extremity normal to inspection General Extremety ED: Negative for edema, pulses abnormal or tenderness General Extremity: Negative for edema or pulses abnormal Neuro oriented x3, CN's II-XII intact bilaterally and no sensory deficits noted Sensorium / Orientation: awake and alert Motor Exam: strength 5/5 throughout Skin no rashes or lesions noted and no wounds MDM MDM MDM Narrative Medical decision making narrative: Broad differential here including early appendicitis, less likely cholecystitis, less likely obstructive uropathy/ureterolithiasis, pyelonephritis, also possible functional bowel pain/disorder, may or may not be related to constipation, may or may not have right sided diverticulitis. Screening with labs, urinalysis, CT of the abdomen/pelvis and giving her an oral dicyclomine in the meantime. I reviewed her labs which were all normal including urinalysis, CT of the abdomen and pelvis was reviewed by myself as well as radiology I agree with the report, it is essentially negative/normal. In the meantime, patient is actually feeling much better without any further discomfort after the dicyclomine. Patient reassured, she is likely having some bowel related pain, it is possible that it is constipation-related with regards to bowel spasm. I am going to give her a prescription for dicyclomine to use as needed, if she continues to have recurrence of discomfort advised to follow-up with her doctor she is comfortable with that plan. However, with the negative CT and a white blood count of 4.6 with no leftward shift or bandemia my suspicion for early appendicitis is extremely low. Lab Data Attestation: I reviewed the patient's lab results. Labs: Laboratory Results - last 24 hr 12/27/24 12/27/24 10:05 10:40 WBC 4.6 RBC 4.47 Hgb 13.2 Hct 40.3 MCV 90.2 MCH 29.5 MCHC 32.8 RDW Std Deviation 47.5 H RDW Coeff of Ami 14.3 Plt Count 205 MPV 10.2 Immature Gran % (Auto) 0.200 Neut % (Auto) 64.9 Lymph % (Auto) 24.7 [place] % (Auto) 8.0 Eos % (Auto) 2.0 Baso % (Auto) 0.2 Absolute Neuts (auto) 3.0 Absolute Lymphs (auto) 1.14 Nucleated RBC % 0 Sodium 142 Potassium 4.2 Chloride 106 Carbon Dioxide 24.2 Anion Gap 12 BUN 12 Creatinine 0.88 Estim Creat Clear Calc 68.89 Est GFR (MDRD) Non-Af 72 BUN/Creatinine Ratio 14.1 Glucose 109 H Calcium 9.4 Total Bilirubin 0.38 AST 30 ALT 20 Alkaline Phosphatase 69 Total Protein 7.0 Albumin 4.2 Globulin 2.8 Albumin/Globulin Ratio 1.5 Urine Color Yellow Urine Clarity Clear Urine pH 8.0 Ur Specific [place] 1.010 Urine Protein 15 H Urine Glucose (UA) Normal Urine Ketones Negative Urine Occult Blood Negative Urine Nitrite Negative Urine Bilirubin Negative Urine Urobilinogen Normal Ur Leukocyte Esterase 25 H Urine RBC 0 SEEN Urine WBC 0 SEEN Ur Squamous Epith Cells 0-5 SEEN Urine Bacteria 0 SEEN Urine Mucus 0 SEEN Radiography Diagnostic Testing: Clinical Impression(s) from Imaging Studies Abdomen/Pelvis CT 12/27/24 09:53 IMPRESSION: No acute abdominopelvic abnormalities. Reading Location: [facility] Discharge Plan Triage Chief Complaint: Abd Pain Other Complaint: Flank Pain ED Provider: Cm Vasques Dx/Rx/DC Orders Clinical Impression: Right sided abdominal pain, Constipation Instructions: ED Constipation (Adult) Prescriptions: No Action levothyroxine 50 mcg tablet 50 mcg PO DAILY rosuvastatin 10 mg tablet 5 mg PO DAILY omeprazole 20 mg capsule,delayed release(DR/EC) 20 mg PO DAILY PRN (Reason: GERD) Patient Comments: cholecalciferol (vitamin D3) [Vitamin D3] 50 mcg (2,000 unit) capsule 50 mcg PO DAILY Primary Care Provider: Romeo Shankar Chi Referrals: Romeo Shankar Chi, MD [Primary Care Provider] - 3-5 Days if not improving Print Language: Japanese Disposition Disposition: Home, Self Care
[2024-12-27 10:16] LABS: Hematocrit 40.3 % (37-47); Hemoglobin 13.2 g/dL (12.0-15.0); Immature Granulocytes Count 0.010 X10^3/uL (0.0-0.0); Mean Corp Hgb Conc 32.8 g/dL (32-36); Mean Corpuscular Volume 90.2 fL (81-99); Mean Platelet Vol. 10.2 fl (6.2-12.0); NRBC Flagged by Analyzer 0 % (0-5); Platelet Count 205 K/mm3 (150-450); RBC Distribution Width CV 14.3 % (11.6-14.6); RBC Distribution Width SD 47.5 fl (35.1-43.9); Red Blood Count 4.47 M/mm3 (4.2-5.4); White Blood Count 4.6 K/mm3 (4.4-11.0)
[2024-12-27 10:34] LABS: AST(SGOT) 30 U/L (<=31); Alanine Aminotransfer ALT/SGPT 20 U/L (<=34); Albumin, Serum 4.2 g/dL (3.4-4.8); Alkaline Phosphatase 69 U/L (35-104); Anion Gap 12 (5-15); BUN 12 mg/dL (4-19); BUN/Creat Ratio 14.1 RATIO (10-20); Calcium,Total 9.4 mg/dL (7.6-11.0); Carbon Dioxide 24.2 mmol/L (21.0-32.0); Chloride 106 mmol/L (98-108); Estimated Creatinine Clearance 68.89 ml/min (50-250); Globulin 2.8 g/dL (2.2-4.2); Glucose 109 mg/dL (70-99); Potassium 4.2 mmol/L (3.3-5.1)
[2024-12-27 10:53] LABS: Mucous, Urine 0 SEEN /hpf (<or=2+); Red Blood Cells-Urine 0 SEEN /hpf (0-5)
--- NOTE | 2024-12-27 10:53 | CM.ED ---
Social Work: Date of referral: 12/27/24 Reason for referral: Advanced Care Directives (ACD's) not on file. Referred by: Social Work Identification Patient provided consent to social work visit. Bulldogger requested a copy of ACD's which patient was agreeable to bringing in. Linda Alston, BIOLOGY RESEARCH ASSISTANT, WEIGHT CALLER
--- OUTSIDE RECORDS SUMMARY | 2024-12-27 11:01 | XMS RPT_ITS | CCD ---
Author Organization [facility] CliniSymn Care Team Providers Care Bead Inspector Name Role Phone EDGAR HOLBROOK Attending Unavailable EDGAR HOLBROOK Referring Unavailable EDGAR HOLBROOK Primary Care Edgar Butler Primary Care Provider Edgar Holbrook Primary Care Provider Edgar Holbrook Primary Care Provider Edgar Holbrook Unavailable Edgar Holbrook Primary Care Provider Edgar Holbrook MD Primary Care Provider Edgar Holbrook Primary Care Provider Darrell, Dr. Chay Srivastava Attending Unavaila ble Sheron, Dr. Edgar Kern Primary Care Unavaila ble Clarice, Ms. Kait Bell Attending Unavaila ble Tommaggie, Dr. Edgar Kern Primary Care Unavaila ble Darrell, Dr. Chay Srivastava Attending Unavaila ble Sheron, Dr. Edgar Kern Primary Care Unavaila collin Ramírez, Dr. Chay Srivastava Attending Unavaila ble Sheron, Dr. Edgar Kern Primary Care Unavaila ble Sheron, Dr. Edgar Kern Primary Care Unavaila ble Darrell, Dr. Chay Srivastava Attending Unavaila ble Clarice, Ms. Kait Blel Attending Unavaila ble Sheron, Dr. Edgar Kern Primary Care Unavaila ble Clarice, Ms. Kait Bell Attending Unavaila ble Tommaggie, Dr. Edgar Kern Primary Care Unavaila ble Clarice, Ms. Kait Bell Attending Unavaila ble Sheron, Dr. Edgar Kern Primary Care Unavaila collin Ramírez, Dr. Chay Srivastava Attending Unavaila ble Sheron, Dr. Edgar Kern Primary Care Unavaila ble Darrell, Dr. Chay Srivastava Attending Unavaila ble Tommaggie, Dr. Edgar Kern Primary [facility] Unavaila ble Ramírez, Dr. Chay Srivastava Attending Unavaila ble Tommaggie, Dr. Edgar Kern Primary [facility] Unavaila ble Ramírez, Dr. Chay Srivastava Attending Unavaila ble Tommaggie, Dr. Edgar Kern [facility] Unavaila ble Ramírez, Dr. Chay Srivastava Attending Unavaila ble Tommaggie, Dr. Edgar Kern Primary [facility] Unavaila ble Darrell, Dr. Chay Srivastava Attending Unavaila ble [place], Dr. Edgar Kern [facility] Unavaila ble Tommaggie, Dr. Edgar Kern [facility] Unavaila ble Teach, MsMarivel Bell Attending Unavaila ble Tommaggie, Dr. Edgar Kern [facility] Unavaila ble Darrell, Dr. Chay Srivastava Attending Unavaila ble Tommaggie, Dr. Edgar Kern [facility] Unavaila ble Darrell, Dr. Chay Srivastava Attending Unavaila ble Tommaggie, Dr. Edgar Kern [facility] Unavaila ble Teach, Ms. Kait Bell Attending Unavaila ble Tommaggie, Dr. Edgar Kern [facility] Unavaila ble Teach, Ms. Kait Bell Attending Unavaila ble Tommaggie, Dr. Edgar Kern [facility] Unavaila ble Teach, MsMarivel Bell Attending Unavaila ble Tommaggie, Dr. Edgar Kern Primary Care Unavaila ble Teach, MsMarivel Kaitfabiano Bell Attending Unavaila ble Teach, Ms. Kait Bell Attending Unavaila ble Tommaggie, Dr. Edgar Kern [facility] Unavaila ble Darrell, Dr. Chay Srivastava Attending Unavaila ble Sheron, Dr. Edgar Kern [facility] Unavaila ble Sheron, Dr. Edgar Kern [facility] Unavaila ble Darrell, Dr. Chay Srivastava Attending Unavaila ble Ramírez, Dr. Chay Srivastava Attending Unavaila ble Tommaggie, Dr. Edgar Kern [facility] Unavaila ble Sheron, Dr. Edgar Kern [facility] Unavaila ble Teach, MsMarivel Bell Attending Unavaila ble Tommaggie, Dr. Edgar Kern [facility] Unavaila ble Teach, MsMarivel Kaitfabiano Bell Attending Unavaila ble Unavailable Primary Care Provider Tika Holbrook, Dr. Juarez Primary Care Provider [phone] Sheron, Dr. Juarez Referring Provider [phone] NISA Palacio Attending Provider [phone] Edgar Holbrook MD Primary Care Provider Raad CHINO, Paulo Primary Care Provider [phone] ALYSSA SCHULTZ H Referring Unavailable GUSLERMAYANK Attending Unavailable RAAD, ROMEO-CHI Primary Care Unavailable ANTOINE, ALYSSA H Referring Unavailable ANTOINE, ALYSSA H Attending Unavailable RAAD, ROMEO-CHI Primary Care Unavailable CONSULT, SURGERY - NEURO Consulting Unavail able EDGAR HOLBROOK Primary Care Unavailable SYSTEM, PROVIDER NOT IN Referring Unavaila ble ANTOINEALYSSA H Attending Unavailable ANTOINE, ALYSSA H Admitting Unavailable RAAD, ROMEO-CHI Primary Care Unavailable GUSMAYANK BRICE T Referring Unavailable GUSMAYANK BRICE T Attending Unavailable RAAD, ROMEO CHI Attending Unavailable RAAD, ROMEO CHI Consulting Unavailable RAAD, ROMEO CHI Primary Care Unavailable RAAD, ROMEO CHI Admitting Unavailable PROVIDER, UNKNOWN Consulting Unavailable PROVIDER, UNKNOWN Consulting Unavailable Raad CHINO, Dr. Romeo Julio Primary Care Provider [phone] Raad CHINO, Dr. Romeo Julio Attending Provider Raad CHINO, Dr. Romeo Julio Referring Provider Unavailable Primary Care Provider Unavailabl e ZENOBIA RODRIGUEZ Attending Unavail able ZENOBIA RODRIGUEZ Referring Unavail able SHAWN RESENDEZ ZENOBIA Referring Unavail able ZENOBIA RODRIGUEZ Attending Unavail able Raad CHINO, Dr. Romeo Julio Primary Care Provider Dr. Romeo Shankar MD, Chi Attending Provider Raad CHINO, Dr. Romeo Julio Referring Provider Provider, Ed Physician Emergency Provider Tammie peñaloza Provider, Ed Physician Attending Provider Tammie White MD, Dr. Lorenzana Attending Provider [phone] Raad, Romeo Chi Primary Care Unavailable Raad, Romeo Chi Attending Unavailable Raad, Romeo Chi Referring Unavailable Raad, Romeo Chi Attending Unavailable Raad, Romeo Chi Primary Care Unavailable Raad, Romeo Chi Attending Unavailable Raad, Romeo Chi Primary Care Unavailable Raad, Romeo Chi Referring Unavailable Raad, Romeo Chi Primary Care Unavailable Raad, Romeo Chi Attending Unavailable Raad, Romeo Chi Primary Care Unavailable Provider, Ed Physician Attending Unavailab le Raad, Romeo Chi Referring Unavailable Raad, Romeo Chi Attending Unavailable Raad, Romeo Chi Primary Care Unavailable Raad, Romeo Chi Primary Care Unavailable Salomón White Attending Unavailable Raad, Romeo Chi Primary Care [...] to adverse reactions to drug (disorder) 6 [facility] Medications Current Medications Medication Drug Class(es) Dates Sig (Normalized) Sig (Original) cholecalciferol 0.05 mg oral capsule (9 sources) Vitamin D Start: 05-30-2023 take 1 [...] Comment on above: Take 1 capsule by [facility] twice daily for 10 days. ergocalciferol, vitamin [...] (20 sources) l-Thyroxine Start: 05-04-20 End: 06-01-19 take 1 tablet by mouth once daily [...] morning of procedure 4 tablet 08/11/2024 Active ondansetron 4 mg oral tablet (4 [...] cancel msg)) predniSONE 20 mg oral tablet (14 sources) Start: 03-02-2021 End: 01-26-2022 predniSONE (DELTASONE) [...] / HYDROcodone bitartrate 5 mg oral tablet (10 sources) Opioid Agonist Start: 03-02-2021 End: 05-30-2023 [...] / oxyCODONE hydrochloride 5 mg oral tablet (10 sources) Opioid Agonist Start: 05-12-2020 End: 05-17-2020 [...] Sun05/30/23 at 2215, Extravasation Risk, CT Procedure iohexol (OMNIPAQUE) 350 MG/ML injection 75 mL (1 source) Start: 06-15-2022 End: 06-15-2022 iohexol (OMNIPAQUE) 350 MG/ML injection 75 mL Labetalol (NORMODYNE) injection 10 mg (1 source) Start: 05-30-2023 End: 06-01-2023 take 10 mg intravenously every hour as needed Labetalol (NORMODYNE) injection 10 mg meloxicam 15 mg oral tablet (10 sources) Nonsteroidal Anti-inflammatory Drug Start: 05-04-2020 End: 06-25-2020 take 1 tablet by mouth once daily Meloxicam 15 mg tablet Discontinued 15 mg PO DAILY May 04, 2020 1:00am June 25, 2020 11:39am methylPREDNISolone 4 mg oral tablet (10 sources) Corticosteroid Start: 06-25-2020 End: 05-30-2023 take 1 tablet by mouth once Methylprednisolone (Medrol (Max)) 4 mg tablets,dose pack Discontinued 0 PO per package directions 21 June 25, 2020 1:00am May 30, 2023 [...] for 7 days. 14 tablet 08/12/2024 08/19/2024 omeprazole 20 mg delayed release oral capsule (20 sources) Proton Pump Inhibitor Start: 08-08-2008 End: 05-04-2020 take 1 capsule by mouth once daily Omeprazole 20 MG capsule,delayed release(DR/EC) Discontinued 20 mg PO DAILY January 04, 2018 12:00am May 04, 2020 3:12pm End: 05-30-2023 OMEPRAZOLE PO Take by mouth. 05/30/2023 Discontinued (Medication Reconciliation (suppress cancel msg)) OMEPRAZOLE PO Ta ke by mouth. 0 Active Ondansetron 4mg/2ml (ZOFRAN) injection 4 mg (1 [...] mL traMADol hydrochloride 50 mg oral tablet (10 sources) Opioid Agonist Start: 05-25-2020 End: 05-30-2020 [...] Problem Date Documented Date Episodic/Chronic Abdominal pain (20 sources) Right lower quadrant pain; Translations: [Right lower quadrant pain] Episodic Acute cerebrovascular disease (18 sources) Intracranial hemorrhage; Translations: [Nontraumatic intracranial hemorrhage, unspecified] Onset: 05-30-2023 05-30-2023 Chronic Cardiac dysrhythmias (1 source) Palpitations; Translations: [Palpitation] Episodic Cataract (12 sources) Bilateral senile combined form cataracts of eyes; Translations: [Combined forms of age-related cataract, bilateral] Onset: 09-14-2014 08-17-2016 Chronic Disorders of lipid metabolism (9 sources) Hyperlipidemia; Translations: [Hyperlipidemia, unspecified] 05-30-2023 Chronic Esophageal disorders (9 sources) Gastroesophageal reflux disease; Translations: [Gastro-esophageal reflux disease without esophagitis] 05-30-2023 Chronic Fracture of upper limb (10 sources) Fracture of distal end of radius; [...] vomiting (1 source) Nausea; Translations: [Nausea] Episodic Nutritional deficiencies (1 source) Vitamin D deficiency, unspecified; Translations: [Vitamin D deficiency, unspecified] Onset: 12-10-2024 Chronic Osteoarthritis (9 sources) Osteoarthritis; Translations: [Unspecified osteoarthritis, unspecified site] [...] noninflammatory disorders of vagina] 08-11-2024 Episodic Other injuries and conditions due to external causes (1 source) Other specified injuries of unspecified lower leg, initial encounter; Translations: [Other specified injuries of unspecified lower leg, initial encounter] Onset: 12-04-2024 Episodic Other nervous system disorders (10 sources) [...] Onset: 11-04-2012 11-04-2012 Chronic Residual codes; unclassified (9 sources) Confusional state; Translations: [Disorientation, unspecified] 05-30-2023 Episodic Residual codes; unclassified (3 sources) Disorientation, unspecified; Translations: [Unspecified psychosis] 05-30-2023 Episodic Residual codes; unclassified (2 sources) Other specified health status; Translations: [Other specified health status] Onset: 08-09-2023 Episodic Residual codes; unclassified (1 source) Edema, unspecified; Translations: [Edema, unspecified] Onset: 12-10-2024 Episodic Spondylosis; intervertebral disc disorders; other back [...] Test Name Value Interpretation Reference Range Facility Venous duplex ultrasound rep ortOrdered By: Salomón White on 12-03-2024 US Vein [facility] [address] [place] [address] Venous Duplex US - Marlon Extrem 12/02/24 1326 MR#: [id number] Acct: [id number] Name: KAIA HALEY Rep #:[id number] : [id number] 69 From: Salomón Barbosa Attending Dr: Dr. Romeo Shankar MD Status: REG CLI Ordering Dr: Romeo Shankar MD Date: Location: CVS Sex: F C Admitted: Reason For Study Reason For Study: Right leg swelling RIGHT LEFT GSV is normal. GSV is normal. CFV is compressible, spontaneous, phasic, competent CFV is compressible, spontaneous, phasic, competent, and demonstrates normal augmentation. and demonstrates normal augmentation. FV is compressible, spontaneous, phasic, competent FV is compressible, spontaneous, phasic, competent and demonstrates normal augmentation. and demonstrates normal augmentation. POP V is compressible, spontaneous, phasic, competent POP V is compressible, spontaneous, phasic, competent and demonstrates normal augmentation. and demonstrates normal augmentation. T/P Trunk is compressible. T/P Trunk is compressible. PTV is compressible. PTV is compressible. RT PerV is compressible. LT PerV is compressible. Minimal thrombus filled varicose vein noted at the lateral knee at area of bruise. Procedure This is a venous duplex using B-mode, color flow and spectral Doppler. Exam performed in department. A preliminary report was called and/or faxed to [facility]. VL/Venous Duplex US - Marlon Extrem Interpretation Summary Acute superficial vein thrombosis noted in varicosities adjacent to the right knee. Deep veins of the bilateral lower extremities are patent and compressible segmentally. There is no evidence of bilateral lower extremity deep vein thrombosis. The bilateral great saphenous veins appearpatent and compressible segmentally. Ordering Physician: Romeo Shankar Chi Referring Physician: Romeo Shankar Chi Performed By: Katerina Magaña RVConnie 12/03/24943 Date _ Salomón White MD CC: Dr. Romeo Shankar MD ~ Date Dictated: 12/02/24 1326 Date Transcribed: 12/03/24943 Court Supervisor: Signed [facility] Work Phone: Absolute lymphocyte countOrd ered By: Romeo Shankar on 12-02-2024 Lymphocytes Auto (Unsp spec) [#/Vol] 1.29 10*3/uL 0.83-4.51 [facility] Absolute neutrophil countOrd ered By: Romeo Shankar on 12-02-2024 Neutrophils (Bld) [#/Vol] 3.4 10*3/uL 2.0-7.7 [facility] Anion gap in Serum or Plasma Ordered By: Romeo Shankar on 12-02-2024 Anion gap [Moles/Vol] 15 mmol/L 5-15 [facility] Automated lymphocyte count a s percentage of total leukocytesOrdered By: Romeo Shankar on 12-02-2024 Lymphocytes/100 WBC Auto (Unsp spec) 24.4 % 19-41 [facility] BUN/creatinine ratioOrdered By: Romeo Shankar on 12-02-2024 Urea nitrogen/Creatinine [Mass ratio] 15.2 mg/mg 10-20 [facility] Basophil percentageOrdered B y: Romeo Shankar on 12-02-2024 Basophils/100 WBC (Bld) 0.6 % 0-1 [facility] Bilirubin, totalOrdered By: Romeo Shankar on 12-02-2024 Bilirubin [Mass/Vol] 0.56 mg/dL 0.00-1.30 [facility] CBC W/Diff, Automatedon 07-2 Absolute Lymph 1.29 X10 3/uL Normal 0.83-4.51 [facility] Comment on above: Performed By: #### L 501.9520, L506.1001, L500.4050, L100.0100 #### [facility] [address] [place], [address] Absolute Neut 3.4 X10 3/uL Normal 2.0-7.7 [facility] Comment on above: Performed By: #### L [id number], L506.1001, L500.4050, L100.0100 #### [facility] [address] [place], [address] Basophils/100 WBC (Bld) 0.6 % Normal 0-1 [facility] Comment on above: Performed By: #### L 501.9520, L506.1001, L500.4050, L100.0100 #### [facility] [address] [place], [address] Eosinophils/100 WBC (Bld) 2.1 % Normal 0-5 [facility] Comment on above: Performed By: #### L 501.9520, L506.1001, L500.4050, L100.0100 #### [facility] [address] [place], [address] Erythrocyte distribution width (RBC) [Ratio] 14.5 % Normal 11.6-14.6 [facility] Comment on above: Performed By: #### L 501.9520, L506.1001, L500.4050, L100.0100 #### [facility] [address] [place], [address] Hematocrit (Bld) [Volume fraction] 41.6 % Normal 37-47 [facility] Comment on above: Performed By: #### L 501.9520, L506.1001, L500.4050, L100.0100 #### [facility] [address] [place], [address] Hemoglobin (Bld) [Mass/Vol] 13.5 g/dL Normal 12.0-15.0 [facility] Comment on above: Performed By: #### L 501.9520, L506.1001, L500.4050, L100.0100 #### [facility] [address] [place], [address] IG% 0.200 Normal 0.0-0.9 [facility] Comment on above: Result Comment: IG% - Immature Granulocytes (promyelocytes, myelocytes and metamyelocytes) > 1% indicates that a LEFT SHIFT is Present. Performed By: #### L 501.9520, L506.1001, L500.4050, L100.0100 #### [facility] [address] [place], [address] Lymphocytes/100 WBC (Bld) 24.4 % Normal 19-41 [facility] Comment on above: Performed By: #### L 501.9520, L506.1001, L500.4050, L100.0100 #### [facility] [address] [place], [address] MCH (RBC) [Entitic mass] 29.6 pg Normal 27.0-32.0 [facility] Comment on above: Performed By: #### L 501.9520, L506.1001, L500.4050, L100.0100 #### [facility] [address] [place], [address] MCHC (RBC) [Mass/Vol] 32.5 g/dL Normal 32-36 [facility] Comment on above: Performed By: #### L 501.9520, L506.1001, L500.4050, L100.0100 #### [facility] [address] [place], [address] MCV (RBC) [Entitic vol] 91.2 fL Normal 81-99 [facility] Comment on above: Performed By: #### L 501.9520, L506.1001, L500.4050, L100.0100 #### [facility] [address] [place], [address] Monocytes/100 WBC (Bld) 8.7 % Normal 0-10 [facility] Comment on above: Performed By: #### L 501.9520, L506.1001, L500.4050, L100.0100 #### [facility] [address] [place], [address] Neutrophils/100 WBC (Bld) 64.0 % Normal 47-70 [facility] Comment on above: Performed By: #### L 501.9520, L506.1001, L500.4050, L100.0100 #### [facility] [address] [place], [address] Nucleated RBC (Bld) [#/Vol] 0 10*3/uL Normal 0-5 [facility] Comment on above: Performed By: #### L 501.9520, L506.1001, L500.4050, L100.0100 #### [facility] [address] [place], [address] Platelet mean volume (Bld) [Entitic vol] 10.5 fL Normal 6.2-12.0 [facility] Comment on above: Performed By: #### L 501.9520, L506.1001, L500.4050, L100.0100 #### [facility] [address] [place], [address] Platelets (Bld) [#/Vol] 202 10*3/uL Normal 150-450 [facility] Comment on above: Performed By: #### L 501.9520, L506.1001, L500.4050, L100.0100 #### [facility] [address] [place], [address] RBC (Bld) [#/Vol] 4.56 10*6/uL Normal 4.2-5.4 [facility] Comment on above: Performed By: #### L 501.9520, L506.1001, L500.4050, L100.0100 #### [facility] [address] [place], [address] RDW SD 48.7 fl High 35.1-43.9 [facility] Comment on above: Performed By: #### L 501.9520, L506.1001, L500.4050, L100.0100 #### [facility] [address] [place], [address] WBC (Bld) [#/Vol] 5.3 10*3/uL Normal 4.4-11.0 [facility] Comment on above: Performed By: #### L 501.9520, L506.1001, L500.4050, L100.0100 #### [facility] [address] [place], [address] Carbon dioxide, total [Moles /volume] in Central venous bloodOrdered By: Romeo Shankar on 12-02-2024 CO2 [Moles/Vol] 21.0 mmol/L 21.0-32.0 [facility] Chloride assayOrdered By: Jarrell Shankar on 12-02-2024 Chloride [Moles/Vol] 106 mmol/L 98-108 [facility] Comprehensive Metabolic Prof ilon 12-02-2024 Albumin [Mass/Vol] 4.4 g/dL Normal 3.4-4.8 [facility] Comment on above: Performed By: #### L 501.9520, L506.1001, L500.4050, L100.0100 #### [facility] [address] [place], [address] Albumin/Globulin [Mass ratio] 1.5 {ratio} Normal 0.9-2.4 [facility] Comment on above: Performed By: #### L 501.9520, L506.1001, L500.4050, L100.0100 #### [facility] [address] [place], [address] ALK PHOS 74 U/L Normal 35-104 [facility] Comment on above: Performed By: #### L 501.9520, L506.1001, L500.4050, L100.0100 #### [facility] [address] [place], [address] ALT [Catalytic activity/Vol] 30 U/L Normal <=34 [facility] Comment on above: Performed By: #### L 501.9520, L506.1001, L500.4050, L100.0100 #### [facility] [address] [place], [address] AST [Catalytic activity/Vol] 36 U/L High <=31 [facility] Comment on above: Performed By: #### L 501.9520, L506.1001, L500.4050, L100.0100 #### [facility] [address] [place], [address] Bilirubin [Mass/Vol] 0.56 mg/dL Normal 0.00-1.30 [facility] Comment on above: Performed By: #### L 501.9520, L506.1001, L500.4050, L100.0100 #### [facility] [address] [place], [address] BUN/CRE 15.2 RATIO Normal 10-20 [facility] Comment on above: Performed By: #### L 501.9520, L506.1001, L500.4050, L100.0100 #### [facility] [address] [place], [address] Calcium [Mass/Vol] 9.6 mg/dL Normal 7.6-11.0 [facility] Comment on above: Performed By: #### L 501.9520, L506.1001, L500.4050, L100.0100 #### [facility] [address] [place], [address] Chloride [Moles/Vol] 106 mmol/L Normal 98-108 [facility] Comment on above: Performed By: #### L 501.9520, L506.1001, L500.4050, L100.0100 #### [facility] [address] [place], [address] CO2 [Moles/Vol] 21.0 mmol/L Normal 21.0-32.0 [facility] Comment on above: Performed By: #### L 501.9520, L506.1001, L500.4050, L100.0100 #### [facility] [address] [place], [address] Creatinine [Mass/Vol] 0.88 mg/dL Normal 0.70-1.20 [facility] Comment on above: Performed By: #### L 501.9520, L506.1001, L500.4050, L100.0100 #### [facility] [address] [place], [address] GAP 15 Normal 5-15 [facility] Comment on above: Performed By: #### L 501.9520, L506.1001, L500.4050, L100.0100 #### [facility] [address] [place], [address] GFR/1.73 sq M.predicted among non-blacks MDRD (S/P/Bld) [Vol rate/Area] 71 mL/min/{1.73_m2} Normal >60 [facility] Comment on above: Result Comment: mL/m in/1.73m2 CKD-EPI Creatinine Equation (2020) Performed By: #### L 501.9520, L506.1001, L500.4050, L100.0100 #### [facility] [address] [place], [address] Globulin (S) [Mass/Vol] 2.9 g/dL Normal 2.2-4.2 [facility] Comment on above: Performed By: #### L 501.9520, L506.1001, L500.4050, L100.0100 #### [facility] [address] [place], [address] Glucose [Mass/Vol] 88 mg/dL Normal 70-99 [facility] Comment on above: Performed By: #### L 501.9520, L506.1001, L500.4050, L100.0100 #### [facility] [address] [place], [address] Potassium [Moles/Vol] 3.7 mmol/L Normal 3.3-5.1 [facility] Comment on above: Performed By: #### L 501.9520, L506.1001, L500.4050, L100.0100 #### [facility] [address] [place], [address] Sodium [Moles/Vol] 143 mmol/L Normal 133-145 [facility] Comment on above: Performed By: #### L 501.9520, L506.1001, L500.4050, L100.0100 #### [facility] [address] [place], [address] T PROT 7.3 g/dL Normal 5.9-8.4 [facility] Comment on above: Performed By: #### L 501.9520, L506.1001, L500.4050, L100.0100 #### [facility] [address] [place], [address] Urea nitrogen [Mass/Vol] 13 mg/dL Normal 4-19 [facility] Comment on above: Performed By: #### L 501.9520, L506.1001, L500.4050, L100.0100 #### [facility] [address] [place], [place], [id number] Eosinophil percentageOrdered By: Romeo Shankar on 12-02-2024 Eosinophils/100 WBC (Bld) 2.1 % 0-5 [facility] Erythrocyte distribution wid th ratioOrdered By: [facility]-2024 Erythrocyte distribution width (RBC) [Ratio] 14.5 % 11.6-14.6 [facility] Erythrocyte distribution wid th standard deviationOrdered By: Romeo Raad on 12-02-2024 Erythrocyte distribution width (RBC) [Ratio] 48.7 fl High 35.1-43.9 [facility] Glomerular filtration rate ( GFR) estimation/1.73 sq m using serum, plasma, or whole bOrdered By: Romeo Vincentok on 12-02-2024 GFR/1.73 sq M.predicted among non-blacks MDRD (S/P/Bld) [Vol rate/Area] 71 mL/min/{1.73_m2} >60 [facility] Comment on above: mL/min/1.73m2 CKD-EP I Creatinine Equation (2020) Hematocrit Auto (Bld) [Volum e fraction]Ordered By: Romeo Raad 12-02-2024 Hematocrit (Bld) [Volume fraction] 41.6 % 37-47 [facility] Hemoglobin measurementOrdere d By: Romeo Shankar 12-02-2024 Hemoglobin (Bld) [Mass/Vol] 13.5 g/dL 12.0-15.0 [facility] Immature granulocytes/100 WB C Auto (Bld)Ordered By: Romeo Shankar 12-02-2024 Immature granulocytes/100 WBC (Bld) 0.200 % 0.0-0.9 [facility] Comment on above: IG% - Immature Granu locytes (promyelocytes, myelocytes and metamyelocytes) > 1% indicates that a LEFT SHIFT is Present. Laboratory - Chemistry and C hemistry - challengeOrdered By: Romeo Shankar on 12-02-2024 AST [Catalytic activity/Vol] 36 U/L High <32 [facility] MCV (mean corpuscular volume ) determinationOrdered By: Romeo Shankar on 12-02-2024 MCV (RBC) [Entitic vol] 91.2 fL 81-99 [facility] Mean corpuscular hemoglobin (MCH) determinationOrdered By: Romeo Shankar on 12-02-2024 MCH (RBC) [Entitic mass] 29.6 pg 27.0-32.0 [facility] Mean corpuscular hemoglobin concentration (MCHC) determinationOrdered By: Romeo Shankar on 12-02-2024 MCHC (RBC) [Mass/Vol] 32.5 g/dL 32-36 [facility] Mean platelet volume determi nationOrdered By: Romeo Shankar on 12-02-2024 Platelet mean volume (Bld) [Entitic vol] 10.5 fL 6.2-12.0 [facility] Monocyte percentageOrdered B y: Romeo Shaknar on 12-02-2024 Monocytes/100 WBC (Bld) 8.7 % 0-10 [facility] Neutrophil percentageOrdered By: Romeo Shankar on 12-02-2024 Neutrophils/100 WBC (Bld) 64.0 % 47-70 [facility] Nucleated red blood cell per centageOrdered By: Romeo Shankar on 12-02-2024 Nucleated RBC/100 WBC (Bld) [Ratio] 0 % 0-5 [facility] Platelet countOrdered By: Jarrell Shankar on 12-02-2024 Platelets (Bld) [#/Vol] 202 10*3/uL 150-450 [facility] Potassium measurement (mass/ volume)Ordered By: Romeo Shankar on 12-02-2024 Potassium (Unsp spec) [Mass/Vol] 3.7 mmol/L 3.3-5.1 [facility] RBC Auto (Bld) [#/Vol]Ordere d By: Romeo Shankar on 12-02-2024 RBC (Bld) [#/Vol] 4.56 10*6/uL 4.2-5.4 [facility] Serum creatinine measurement (mass/volume)Ordered By: Romeo Shankar on 12-02-2024 Creatinine [Mass/Vol] 0.88 mg/dL 0.70-1.20 [facility] Serum globulin measurementOr dered By: Romeo Shankar on 12-02-2024 Globulin (S) [Mass/Vol] 2.9 g/dL 2.2-4.2 [facility] Serum glucose measurement (m ass/volume)Ordered By: Romeo Shankar on 12-02-2024 Glucose [Mass/Vol] 88 mg/dL 70-99 [facility] Serum or plasma alanine aguirre otransferase (ALT) measurementOrdered By: Romeo Shankar on 12-02-2024 ALT [Catalytic activity/Vol] 30 U/L <35 [facility] Serum or plasma albumin tim urement (mass/volume)Ordered By: Romeo Shankar on 12-02-2024 Albumin [Mass/Vol] 4.4 g/dL 3.4-4.8 [facility] Serum or plasma albumin/glob ulin mass ratioOrdered By: Romeo Shankar 12-02-2024 Albumin/Globulin [Mass ratio] 1.5 {ratio} 0.9-2.4 [facility] Serum or plasma alkaline keith sphatase measurementOrdered By: Romeo Shankar 12-02-2024 ALP [Catalytic activity/Vol] 74 U/L 35-104 [facility] Serum or plasma calcium tim urement (mass/volume)Ordered By: Romeo Shankar 12-02-2024 Calcium [Mass/Vol] 9.6 mg/dL 7.6-11.0 [facility] Serum or plasma urea nitroge n measurement (mass/volume)Ordered By: Romeo Shankar 12-02-2024 Urea nitrogen [Mass/Vol] 13 mg/dL 4-19 [facility] Sodium levelOrdered By: Romeo Shankar on 12-02-2024 Sodium [Moles/Vol] 143 mmol/L 133-145 [facility] TSH DL <= 0.005 mIU/L QnOrde red By: Romeo Shankar on 12-02-2024 TSH Qn 1.510 uIU/mL 0.300-4.200 [facility] Thyroid Stim Hormone (TSH)on 12-02-2024 TSH 1.510 uIU/mL Normal 0.300-4.200 [facility] Comment on above: Performed By: #### L 501.9520, L506.1001, L500.4050, L100.0100 #### [facility] [address] [place], [address] Total proteinOrdered By: Romeo Shankar on 12-02-2024 Protein [Mass/Vol] 7.3 g/dL 5.9-8.4 [facility] Venous Duplex US - Marlon Extre mon 12-02-2024 Venous Duplex US - Marlon Extrem [facility] [address] [place] [address] Venous Duplex US - Marlon Extrem 12/02/24 1326 MR#: [id number] Acct: [id number] Name: KAIA HALEY Rep #: [id number] : 1955 69 From: Salomón White MD Attending Dr: Dr. Romeo Shankar MD Status: REG CLI Ordering Dr: Romeo Shankar MD Date: 12/02/24 Location: CVS Sex: F C Admitted: Reason For Study Reason For Study: Right leg swelling RIGHT LEFT GSV is normal. GSV is normal. CFV is compressible, spontaneous, phasic, competent CFV is compressible, spontaneous, phasic, competent, and demonstrates normal augmentation. and demonstrates normal augmentation. FV is compressible, spontaneous, phasic, competent FV is compressible, spontaneous, phasic, competent and demonstrates normal augmentation. and demonstrates normal augmentation. POP V is compressible, spontaneous, phasic, competent POP V is compressible, spontaneous, phasic, competent and demonstrates normal augmentation. and demonstrates normal augmentation. T/P Trunk is compressible. T/P Trunk is compressible. PTV is compressible. PTV is compressible. RT PerV is compressible. LT PerV is compressible. Minimal thrombus filled varicose vein noted at the lateral knee at area of bruise. Procedure This is a venous duplex using B-mode, color flow and spectral Doppler. Exam performed in department. A preliminary report was called and/or faxed to [facility] [email or web address]. VL/Venous Duplex US - Marlon Extrem Interpretation Summary Acute superficial vein thrombosis noted in varicosities adjacent to the right knee. Deep veins of the bilateral lower extremities are patent and compressible segmentally. There is no evidence of bilateral lower extremity deep vein thrombosis. The bilateral great saphenous veins appear patent and compressible segmentally. Ordering Physician: Romeo Shankar Chi Referring Physician: Romeo Shankar Chi Performed By: Katerina Magaña RVT 12/03/24943 Date Salomón White MD CC: Dr. Romeo Shankar MD Date Dictated: 12/02/246 Date Transcribed: 12/03/24943 Court Supervisor: Signed Normal [facility] Vitamin D,25 Hydroxyon 12-02 Vitamin D 25-OH 26.6 ng/mL Low 30-100 [facility] Comment on above: Result Comment: Emma min D Status Deficiency: <20 ng/mL (50nmol/L) Insufficiency: 20-30 ng/mL (50-75 nmol/L) Sufficiency: 30-100 ng/mL (75-250 nmol/L) Toxicity: >100 ng/mL (>250 nmol/L) Performed By: #### L 501.9520, L506.1001, L500.4050, L100.0100 #### [facility] [address] [place], [address] White blood cell (WBC) count Ordered By: Romeo Shankar on 12-02-2024 WBC (Bld) [#/Vol] 5.3 10*3/uL 4.4-11.0 [facility] Knee 4 or More Viewson 11-28 Knee 4 or More Views [facility] Imaging Services [address] [place], [place] [address] Knee 4 or More Views MR#: [id number] Acct: [id number] Name: KAIA HALEY Rep #: [id number] : 1955 F 69 From: Dewayne Thomas MD PCP: Dr. Romeo Shankar MD Status: PRE ER Study: Knee 4 or More Views Date of Exam: 11/28/24 Exam# [id number] Ordering Dr: KayeEd P. PROCEDURE: KNEE 4 OR MORE VIEWS [...] the sequelae of old injury. Reading Location: [id number] CC: Dr. Romeo Shankar MD; ED PHYSICIAN PROVIDER Court Supervisor: Signed Normal [facility] Tibia Fibula 2 Viewson 11-28 Tibia Fibula 2 Views [facility] Imaging Services [address] [place], [place] [address] Tibia Fibula 2 Views MR#: [id number] Acct: [id number] Name: KAIA HALEY Rep #: [id number] : 1955 F 69 From: Mayank Hoyos MD PCP: Dr. Romeo Shankar MD Status: DEP ER Study: Tibia Fibula 2 Views Date of Exam: 11/28/24 Exam# [id number] Ordering Dr: KayeEd P. EXAM: Right tibia and fibula. CLINICAL HISTORY: Pain. COMPARISON: None. TECHNIQUE: Two views. FINDINGS: No evidence of acute fracture or dislocation. The soft tissues are unremarkable. RAD/Tibia Fibula 2 Views IMPRESSION: No acute osseous abnormalities. Reading Location: [id number] CC: Dr. Romeo Shankar MD; ED PHYSICIAN PROVIDER Court Supervisor: Signed Normal [facility] CNOVon 09-26-2024 CNOV Office Visit (OBGYWM) KAIA HALEY ([id number]) 1955 F Date Time Provider Department 09/26/24 8:20 AM ZENOBIA RODRIGUEZ OBGYWM During your visit today, we recorded the following information about you: Blood pressure Weight 126/80 92.5 kg Zenobia Rodriguez MD 09/26/2024 8:38 AM Signed Back End Architect offered: Patient declines. Marti is a 69 year old Female [...] contact the office. Referring Provider: ZENOBIA RODRIGUEZ [[id number]] Allergies As of Date: 09/26/2024 Noted Allergy Reaction PENICILLINS 05/18/2005 2 - Rash Date Reviewed: 09/26/2024 Reviewed by: Danielle Perry MA - Fully Assessed Primary Visit Diagnosis:Postmenopa usal bleeding [N95.0] Order(s):ENDOMETRIAL BIOPSY [9609287] Order #: [id number] SURGICAL PATHOLOGY [[id number]] Order #: [id number] Prescriptions as of 09/26/2024 - miSOPROStol (CYTOTEC) [...] eyes [* (more content not included)... Normal [facility] Pathology biopsy report Daniel (Tiss)on 09-26-2024 AP DISCLAIMER Normal [facility] Comment on above: Order Comment: Speci men Type: TISSUE SPECIMEN Ordering Facility: [facility] Address: [address] [place], [place] [address] Result Comment: Divine Woodruff Test (LDT) Disclaimer: Performance characteristics of immunohistochemical, immunofluorescent, and chromogenic in-situ hybridization tests have been determined by the performing laboratory within [facility]'s Johann Tracy Pathology and Laboratory Medicine Department ([facility], [facility], [facility], [facility], [facility], [facility], or [facility]) in a manner consistent with CLIA [...] appropriately. Performed By: #### 6 6121-5 #### [facility] CLIA [id number] [address] [place] [address] [place] CASE REPORT Normal [facility] Comment on above: Order Comment: Speci men Type: TISSUE SPECIMEN Ordering Facility: [facility] Address: [address] [place] [address] Result Comment: Surg ica Pathology Report Case: [id number] Authorizing Provider: Zenobia Rodriguez, Collected: 09/26/2024 08:41 AM Ordering Location: OB/Gynecology Received: 09/26/2024 12:06 PM Pathologist: Eduardo Feliz MD Specimen: Endometrium, Biopsy Performed By: #### 6 6121-5 #### [facility] CLIA [id number] [address] [place] [address] [place] CLINICAL HISTORY postmenopausal bleeding Normal [facility] Comment on above: Order Comment: Speci men Type: TISSUE SPECIMEN Ordering Facility: [facility] Address: [address] [place] [address] Performed By: #### 6 6121-5 #### [facility] CLIA [id number] [address] [place] [address] FINAL DIAGNOSIS Normal [facility] Comment on above: Order Comment: Speci men Type: TISSUE SPECIMEN Ordering Facility: [facility] Address: [address] [place] [address] Result Comment: Endo metrium, biopsy: - Benign endometrial epithelium. ACV/bs 09/30/2024 at 0817 EDT Performed By: #### 6 6121-5 #### [facility] CLIA [id number] [address] [place] [address] [place] FINAL PERFORMING LAB Normal [facility] Comment on above: Order Comment: Speci men Type: TISSUE SPECIMEN Ordering Facility: [facility] Address: [address] [place] [address] Result Comment: Diag nostic interpretation performed at: [facility], [address] [place] [address] CLIA# [id number] Pharmacy Intern: Jake Pop MD Performed By: #### 6 6121-5 #### [facility] CLIA [id number] [address] [place] [address] [place] GROSS DESCRIPTION Normal [facility] Comment on above: Order Comment: Speci men Type: TISSUE SPECIMEN Ordering Facility: [facility] Address: [address] [place] [address] Result Comment: A. E ndometrium, Biopsy Received in formalin are multiple [place], soft feathery segments of tissue admixed with mucinous material aggregating to 2.5 x 0.9 x 0.2 cm. Totally submitted in one cassette. [facility] September 26, 2024 9:05 PM Gross [place] [address] Performed By: #### 6 6121-5 #### [facility] CLIA [id number] [address] [place] [address] [place] CNPNon 09-24-2024 CNPN Telephone (OBGYWM) KAIA HALEY ([id number]) 1955 F Date Time Provider Department 09/24/24 ZENOBIA RODRIGUEZ OBGYWSarah During your visit today, we recorded the following information about you: Helen Milner, LAURA 09/24/2024 9:01 AM Signed Zenobia Rodriguez MD to [facility] Ob-Appraisal Specialist Pool (Selected Message) 09/24/24 8:27 AM Result Note Please notify patient that her Endometrium is 3.8 mm (under 4 is normal). At this time because she does have risk factor for hyperplasia I would recommend EMB in office. If she declines she will need sampling if it recurs. PELVIC US WHI Helen Milner, LAURA 09/24/2024 9:01 AM Signed Left message for patient to call office. LAURA Quigley Lindsey, LAURA 09/24/2024 9:08 AM Signed Patient notified of [...] Status:Closed by EDELMIRA WISEMAN on 09/24/24 Normal [facility] Magnetic resonance imaging r eportOrdered By: Kai Jane on 04-16-2025 Study report [facility] Imaging Services [address] [place] [address] Spine Lumbar (Routine) MR#: [id number] Acct: [id number] Name: KAIA HALEY Rep #: [id number] : 1955 F 69 From: Brissa Jane MD PCP: Dr. Romeo Shankar MD Status: REG C LI Study:Spine Lumbar (Routine) Date of Exam: 08/18/24 Exam# [id number] Ordering Dr: Romeo Shankar MD EXAM: MRI [...] IMPRESSION: Spondylosis. Degenerative disc disease. Reading Location: [place] [address] CC: Dr. Romeo Shankar MD ~ Court Supervisor: Signed [facility] Spine Lumbar (Routine)on Spine Lumbar (Routine) [facility] Imaging Services [address] [place], [place] [address] Spine Lumbar (Routine) MR#: [id number] Acct: [id number] Name: KAIA HALEY Rep #: [id number] : 1955 F 69 From: Kai olivier MD PCP: Dr. Romeo Shankar MD Status: REG CLI Study: Spine Lumbar (Routine) Date of Exam: 08/18/24 Exam# [id number] Ordering Dr: Romeo Shankar MD EXAM: MRI [...] IMPRESSION: Spondylosis. Degenerative disc disease. [facility] CC: Dr. Romeo Shankar MD Court Supervisor: Signed Normal [facility] 08-12-2024 CNPN Telephone (OBGYWM) KAIA HALEY ([id number]) 1955 F Date Time Provider Department 08/12/24 ZENOBIA RODRIGUEZ OBGYWM During your visit today, we recorded the following information about you: Helen Milner RN 08/12/2024 9:11 AM Signed Zenobia Rodriguez MD to [facility] Ob-Appraisal Specialist Pool 08/12/24 9:00 AM Result Note Please [...] Status:Closed by LINDA IRVIN on 08/12/24 Normal [facility] BACTERIAL VAGINOSIS NAATon 0 - Lactobacillus crispatus+gasseri+jense qasim + Gardnerella vaginalis + Atopobium vaginae rRNA ANGEL+probe Ql (Vag fld) Detected Abnormal Not detected [facility] Comment on above: Order Comment: Speci men Type: SWAB Ordering Facility: [facility] Address: [address] [place] [address] Performed By: #### C VTV, BVAMP #### [facility] CLIA [id number] [address] [place] [address] [place] KATHLEEN/TRICHOMONAS NAATon 0 08-11-2024 C. glabrata RNA ANGEL+probe Ql (Vag fld) Not detected Normal Not detected [facility] Comment on above: Order Comment: Speci men Type: SWAB Ordering Facility: [facility] Address: [address] [place] [address] Performed By: #### C VTV, BVAMP #### [facility] CLIA [id number] [address] [place] [address] [place] Kathleen sp DNA ANGEL+probe Ql (Vag fld) Not detected Normal Not detected [facility] Comment on above: Order Comment: Speci men Type: SWAB Ordering Facility: [facility] Address: [address] [place] [address] Result Comment: The Kathleen species group target includes C. albicans, C. tropicalis, C. parapsilosis, and C. dubliniensis. Performed By: #### C VTV, BVAMP #### [facility] CLIA [id number] [address] [place] [address] [place] T. vaginalis DNA ANGEL+probe Ql (Unsp spec) Not detected Normal Not detected [facility] Comment on above: Order Comment: Speci men Type: SWAB Ordering Facility: [facility] Address: [address] [place] [address] Performed By: #### C VTV, BVAMP #### [facility] CLIA [id number] [address] [place] [address] [place] CNOVon 08-11-2024 CNOV Office Visit (OBGYWM) KAIA HALEY ([id number]) 1955 F Date Time Provider Department 08/11/24 3:00 PM ZENOBIA RODRIGUEZ OBGYWM During your visit today, we recorded the following information about you: Blood pressure Weight 120/70 93 kg Zenobia Rodriguez MD 08/11/2024 3:51 PM Signed Back End Architect offered: Patient declines. Kaia Haley is a [...] Living2 SAB0 IAB0 Ectopic0 Multiple0 Live Births2 Appraisal Specialist History LMP: 05/07/2005, Postmenopausal Age at Menarche: Age at First : Age at Menopause: Appraisal Specialist History Comments: Sexual Activity: Not Asked; Male; [...] discussed with the Patient or Patient's Authorized Yam Curer. As applicable, any other physician, advance practice provider, medical student, or other health professional student that will be observing or involved in the sensitive examination for educational or training purposes was discussed with the Patient or Authorized Yam Curer. The Patient or Authorized Yam Curer has agreed to proceed with the sensitive [...] external genitalia normal, normal Bartholin's glands, urethra, [place]'s glands, no vulvar lesions, no cervical lesions, [...] of Date (more content not included)... Normal [facility] PAP TESTon 08-11-2024 ADEQUACY Normal [facility] Comment on above: Order Comment: Speci men Type: FLUID SPECIMEN Ordering Facility: [facility] Address: [address] [place] [address] Result Comment: Sati sfactory for interpretation. No endocervical component Performed By: #### L [id number] #### [facility] CLIA [id number] [address] [place] [address] [place] CASE REPORT Normal [facility] Comment on above: Order Comment: Speci men Type: FLUID SPECIMEN Ordering Facility: [facility] Address: [address] [place] [address] Result Comment: Gyne cologic Cytology Report Case: [id number] Authorizing Provider: Zenobia Rodriguez, Collected: 08/11/2024 03:43 PM Ordering Location: OB/Gynecology Received: 08/11/2024 04:42 PM First Screen: Linda Contreras CT, ASCP Pathologist: Nasra Roche MD Specimen: Pap Test, ThinPrep, Cervix Performed By: #### L [id number] #### [facility] CLIA [id number] [address] [place] [address] [place] CLINICAL HISTORY, CYTOLOGY, BOWLING BALL ASSEMBLER Routine Exam Normal [facility] Comment on above: Order Comment: Speci men Type: FLUID SPECIMEN Ordering Facility: [facility] Address: [address] [place] [address] Result Comment: Vagi nal Spotting Post Menopausal Performed By: #### L [id number] #### [facility] CLIA [id number] [address] [place] [address] [place] FINAL PERFORMING LAB Normal [facility] Comment on above: Order Comment: Speci men Type: FLUID SPECIMEN Ordering Facility: [facility] Address: [address] [place] [address] Result Comment: Tech nical component, creative technologist screening performed at [facility], [address] [place] [address] CLIA# [id number] Diagnostic interpretation performed at [facility], [address] [place] [address] CLIA# [id number] Pharmacy Intern: Kyler Car M.D. Performed By: #### L [id number] #### [facility] CLIA [id number] [address] [place] [address] [place] INTERPRETATION, CYTOLOGY, BOWLING BALL ASSEMBLER Normal [facility] Comment on above: Order Comment: Speci men Type: FLUID SPECIMEN Ordering Facility: [facility] Address: [address] [place] [address] Result Comment: Nega tive for intraepithelial lesion or malignancy. at 1749 EDT Performed By: #### L [id number] #### [facility] CLIA [id number] [address] [place] [address] [place] PAP DISCLAIMER COMMENT The Pap Smear is a screening test for cervical cancer. False negative results occur with all screening tests, emphasizing the need for rescreening at recommended intervals, and clinical correlation. Normal [facility] Comment on above: Order Comment: Speci men Type: FLUID SPECIMEN Ordering Facility: [facility] Address: [address] [place] [address] Performed By: #### L [id number] #### [facility] CLIA [id number] [address] [place] [address] [place] PAP HYDROMETEOROLOGY TEACHER COMMENT This specimen has been analyzed by the ThinPrep Imaging System, an automated imaging and review system, which assists the laboratory in evaluating cells on ThinPrep Pap tests. Following automated imaging, selected omalley from every slide are reviewed by a creative technologist. Normal [facility] Comment on above: Order Comment: Speci men Type: FLUID SPECIMEN Ordering Facility: [facility] Address: [address] [place] [address] Performed By: #### L [id number] #### [facility] CLIA [id number] [address] [place] [address] [place] [address] [place] Urine Cultureon 07-25-2024 [facility] Mixed Gram Positive Organisms [place] Count 11,000-25,000 MIXC Mixed contaminants. Submit a new specimen if indicated. Normal [facility] Comment on above: Performed By: #### M 100.2200 ####[facility] [id number] [place], [place], [address] Abdomen/Pelvis without Conto n 07-22-2024 Abdomen/Pelvis without Cont [facility] Imaging Services [address] [place], [place] [address] Abdomen/Pelvis without Cont MR#: [id number] Acct: [id number] Name: KAIA HALEY Rep #: [id number] : 1955 F 69 From: Yemi Weems MD PCP: Dr. Romeo Shankar MD Status: REG CLI Study: Abdomen/Pelvis without Cont Date of Exam: 07/05 12/29 Exam# [id number] Ordering Dr: Romeo Shankar MD PROCEDURE: ABDOMEN/PELVIS [...] 2. Additional description as above. Reading Location: [facility] CC: Dr. Romeo Shankar MD Court Supervisor: Signed Normal [facility] L/S Spine Min 4 Viewson 07-05 L/S Spine Min 4 Views [facility] Imaging Services [address] [place] [address] L/S Spine Min 4 Views MR#: [id number] Acct: [id number] Name: KAIA HALEY Rep #: [id number] : 1955 F 69 From: Yemi Alcantara MD PCP: Dr. Romeo Shankar MD Status: REG CLI Study: L/S Spine Min 4 Views Date of Exam: 07/22/24 Exam# [id number] Ordering Dr: Romeo Shankar MD EXAM: XR [...] IMPRESSION: Degenerative changes as above. Reading Location: [facility] CC: Dr. Romeo Shankar MD Court Supervisor: Signed Normal [facility] Urine cultureOrdered By: Romeo Shankar on 07-22-2024 Bacteria identified Cx Nom (U) Positive Abnormal [facility] 78-GI-Mzzutqo DOrdered By: Connie Shankar on 06-05-2024 Vitamin D 25-Hydroxy 34.4 ng/mL [facility] Comment on above: Vitamin D 25(OH) Sta tus Range Deficiency <20 ng/mL (50nmol/L) Insufficiency 20 - 30 ng/mL (50 - 75 nmol/L) Sufficiency 30 - 100 ng/mL (75 - 250 nmol/L) Toxicity >100 ng/mL (>250 nmol/L) Absolute neutrophil countOrd ered By: Romeo Shankar on 06-05-2024 Neutrophils (Bld) [#/Vol] 2.9 10*3/uL 2.0-7.7 [facility] Albumin to globulin ratioOrd ered By: Romeo Shankar on 06-05-2024 Albumin/Globulin [Mass ratio] 1.0 {ratio} 0.9-2.4 [facility] Basophil percentageOrdered B y: Romeo Shankar on 06-05-2024 Basophils/100 WBC (Bld) 0.2 % 0-1 [facility] Bilirubin, totalOrdered By: Romeo Shankar on 06-05-2024 Bilirubin [Mass/Vol] 0.40 mg/dL 0.20-1.00 [facility] Comment on above: For patients on eltr ombopag therapy, use of Dimension [place] TBIL is not recommended. Blood urea nitrogen (BUN)/cr eatinine ratioOrdered By: Romeo Shankar on 06-05-2024 Urea nitrogen/Creatinine [Mass ratio] 15.2 mg/mg 10-20 [facility] CBC W/Diff, Automatedon 05-09 Absolute Lymph 1.41 X10 3/uL Normal 0.83-4.51 [facility] Comment on above: Performed By: #### L 100.0100, L501.9520, L506.1000, L500.4050 #### [facility] [address] [place], [address] Absolute Neut 2.9 X10 3/uL Normal 2.0-7.7 [facility] Comment on above: Performed By: #### L 100.0100, L501.9520, L506.1000, L500.4050 #### [facility] [address] [place], [address] Basophils/100 WBC (Bld) 0.2 % Normal 0-1 [facility] Comment on above: Performed By: #### L 100.0100, L501.9520, L506.1000, L500.4050 #### [facility] [address] [place], [address] Eosinophils/100 WBC (Bld) 1.7 % Normal 0-5 [facility] Comment on above: Performed By: #### L 100.0100, L501.9520, L506.1000, L500.4050 #### [facility] [address] [place], [address] Erythrocyte distribution width (RBC) [Ratio] 14.0 % Normal 11.6-14.6 [facility] Comment on above: Performed By: #### L 100.0100, L501.9520, L506.1000, L500.4050 #### [facility] [address] [place], [address] Hematocrit (Bld) [Volume fraction] 40.8 % Normal 37-47 [facility] Comment on above: Performed By: #### L 100.0100, L501.9520, L506.1000, L500.4050 #### [facility] [address] [place], [address] Hemoglobin (Bld) [Mass/Vol] 13.3 g/dL Normal 12.0-15.0 [facility] Comment on above: Performed By: #### L 100.0100, L501.9520, L506.1000, L500.4050 #### [facility] [address] [place], [address] IG% 0.000 Normal 0.0-0.9 [facility] Comment on above: Result Comment: IG% - Immature Granulocytes (promyelocytes, myelocytes and metamyelocytes) > 1% indicates that a LEFT SHIFT is Present. Performed By: #### L 100.0100, L501.9520, L506.1000, L500.4050 #### [facility] [address] [place], [address] Lymphocytes/100 WBC (Bld) 30.0 % Normal 19-41 [facility] Comment on above: Performed By: #### L 100.0100, L501.9520, L506.1000, L500.4050 #### [facility] [address] [place], [address] MCH (RBC) [Entitic mass] 29.0 pg Normal 27.0-32.0 [facility] Comment on above: Performed By: #### L 100.0100, L501.9520, L506.1000, L500.4050 #### [facility] [address] [place], [address] MCHC (RBC) [Mass/Vol] 32.6 g/dL Normal 32-36 [facility] Comment on above: Performed By: #### L 100.0100, L501.9520, L506.1000, L500.4050 #### [facility] [address] [place], [address] MCV (RBC) [Entitic vol] 89.1 fL Normal 81-99 [facility] Comment on above: Performed By: #### L 100.0100, L501.9520, L506.1000, L500.4050 #### [facility] [address] [place], [address] Monocytes/100 WBC (Bld) 7.2 % Normal 0-10 [facility] Comment on above: Performed By: #### L 100.0100, L501.9520, L506.1000, L500.4050 #### [facility] [address] [place], [id number] Neutrophils/100 WBC (Bld) 60.9 % Normal 47-70 [facility] Comment on above: Performed By: #### L 100.0100, L501.9520, L506.1000, L500.4050 #### [facility] [address] [place], [id number] Nucleated RBC (Bld) [#/Vol] 0 10*3/uL Normal 0-5 [facility] Comment on above: Performed By: #### L 100.0100, L501.9520, L506.1000, L500.4050 #### [facility] [address] [place], [address] Platelet mean volume (Bld) [Entitic vol] 10.3 fL Normal 6.2-12.0 [facility] Comment on above: Performed By: #### L 100.0100, L501.9520, L506.1000, L500.4050 #### [facility] [address] [place], [address] Platelets (Bld) [#/Vol] 223 10*3/uL Normal 150-450 [facility] Comment on above: Performed By: #### L 100.0100, L501.9520, L506.1000, L500.4050 #### [facility] [address] [place], [id number] RBC (Bld) [#/Vol] 4.58 10*6/uL Normal 4.2-5.4 [facility] Comment on above: Performed By: #### L 100.0100, L501.9520, L506.1000, L500.4050 #### [facility] [address] [place], [id number] RDW SD 45.4 fl High 35.1-43.9 [facility] Comment on above: Performed By: #### L 100.0100, L501.9520, L506.1000, L500.4050 #### [facility] [address] [place], [address] WBC (Bld) [#/Vol] 4.7 10*3/uL Normal 4.4-11.0 [facility] Comment on above: Performed By: #### L 100.0100, L501.9520, L506.1000, L500.4050 #### [facility] [address] [place], [address] Carbon dioxide measurementOr dered By: Romeo Shankar on 06-05-2024 CO2 [Moles/Vol] 25.0 mmol/L 21.0-32.0 [facility] Chloride measurementOrdered By: Romeo Shankar on 06-05-2024 Chloride [Moles/Vol] 110 mmol/L High 98-107 [facility] Comprehensive Metabolic Prof ilon 06-05-2024 Albumin [Mass/Vol] 3.9 g/dL Normal 3.2-5.0 [facility] Comment on above: Performed By: #### L 100.0100, L501.9520, L506.1000, L500.4050 #### [facility] [address] [place], [address] Albumin/Globulin [Mass ratio] 1.0 {ratio} Normal 0.9-2.4 [facility] Comment on above: Performed By: #### L 100.0100, L501.9520, L506.1000, L500.4050 #### [facility] [address] [place], [address] ALK P 65 U/L Normal 45-117 [facility] Comment on above: Performed By: #### L 100.0100, L501.9520, L506.1000, L500.4050 #### [facility] [address] [place], [address] ALT [Catalytic activity/Vol] 40 U/L Normal 13-56 [facility] Comment on above: Performed By: #### L 100.0100, L501.9520, L506.1000, L500.4050 #### [facility] [address] [place], [id number] AST [Catalytic activity/Vol] 25 U/L Normal 15-37 [facility] Comment on above: Performed By: #### L 100.0100, L501.9520, L506.1000, L500.4050 #### [facility] [address] [place], [id number] Bilirubin [Mass/Vol] 0.40 mg/dL Normal 0.20-1.00 [facility] Comment on above: Result Comment: For patients on eltrombopag therapy, use of Dimension [place] TBIL is not recommended. Performed By: #### L 100.0100, L501.9520, L506.1000, L500.4050 #### [facility] [address] [place], [id number] BUN/CRE 15.2 RATIO Normal 10-20 [facility] Comment on above: Performed By: #### L 100.0100, L501.9520, L506.1000, L500.4050 #### [facility] [address] [place], [address] CA,Total 9.2 mg/dL Normal 8.5-10.1 [facility] Comment on above: Performed By: #### L 100.0100, L501.9520, L506.1000, L500.4050 #### [facility] [address] [place], [id number] Chloride [Moles/Vol] 110 mmol/L High 98-107 [facility] Comment on above: Performed By: #### L 100.0100, L501.9520, L506.1000, L500.4050 #### [facility] [address] [place], [address] CO2 [Moles/Vol] 25.0 mmol/L Normal 21.0-32.0 [facility] Comment on above: Performed By: #### L 100.0100, L501.9520, L506.1000, L500.4050 #### [facility] [address] [place], [address] Creatinine [Mass/Vol] 0.92 mg/dL Normal 0.55-1.02 [facility] Comment on above: Result Comment: The validity of the calculated GFR GFRAA in patients over 70 years has not been determined. Clinical correlation is essential. Performed By: #### L 100.0100, L501.9520, L506.1000, L500.4050 #### [facility] [address] [place], [address] EST GFR - AA 78 mL/min Normal >60 [facility] Comment on above: Result Comment: Afri can Eritrean GFR Calc Performed By: #### L 100.0100, L501.9520, L506.1000, L500.4050 #### [facility] [address] [place], [address] GAP 8 Normal 5-15 [facility] Comment on above: Performed By: #### L 100.0100, L501.9520, L506.1000, L500.4050 #### [facility] [address] [place], [address] GFR/1.73 sq M.predicted among non-blacks MDRD (S/P/Bld) [Vol rate/Area] 65 mL/min/{1.73_m2} Normal >60 [facility] Comment on above: Result Comment: Non- GFR Calc Performed By: #### L 100.0100, L501.9520, L506.1000, L500.4050 #### [facility] [address] [place], [address] Globulin (S) [Mass/Vol] 3.9 g/dL Normal 2.2-4.2 [facility] Comment on above: Performed By: #### L 100.0100, L501.9520, L506.1000, L500.4050 #### [facility] [address] [place], [address] Glucose [Mass/Vol] 104 mg/dL Normal 74-106 [facility] Comment on above: Result Comment: Fast ing Glucose result from 100 to 125 mg/dL suggests IMPAIRED HOMEOSTASIS per A.D.A. criteria. Performed By: #### L 100.0100, L501.9520, L506.1000, L500.4050 #### [facility] [address] [place], [address] Potassium [Moles/Vol] 3.7 mmol/L Normal 3.5-5.1 [facility] Comment on above: Performed By: #### L 100.0100, L501.9520, L506.1000, L500.4050 #### [facility] [address] [place], [id number] Sodium [Moles/Vol] 143 mmol/L Normal 136-145 [facility] Comment on above: Performed By: #### L 100.0100, L501.9520, L506.1000, L500.4050 #### [facility] [address] [place], [address] T PROT 7.8 g/dL Normal 6.4-8.2 [facility] Comment on above: Performed By: #### L 100.0100, L501.9520, L506.1000, L500.4050 #### [facility] [address] [place], [address] Urea nitrogen [Mass/Vol] 14 mg/dL Normal 7-18 [facility] Comment on above: Performed By: #### L 100.0100, L501.9520, L506.1000, L500.4050 #### [facility] [address] [place], [address] Eosinophil percentageOrdered By: Romeo Raad on 06-05-2024 Eosinophils/100 WBC (Bld) 1.7 % 0-5 [facility] Erythrocyte distribution wid th ratioOrdered By: [facility] on 06-05-2024 Erythrocyte distribution width (RBC) [Ratio] 14.0 % 11.6-14.6 [facility] Erythrocyte distribution wid th standard deviationOrdered By: [facility] 06-05-2024 Erythrocyte distribution width (RBC) [Entitic vol] 45.4 fL High 35.1-43.9 [facility] Estimated glomerular filtrat ion rate (GFR) AmericanOrdered By: Romeo Shankar on 06-05-2024 Estimated GFR (MDRD) Amer 78 mL/min >60 [facility] Comment on above: GFR Calc Glomerular filtration rate ( GFR) estimationOrdered By: Romeo Shankar 06-05-2024 Estimated GFR (MDRD) Non-Af Amer 65 mL/min >60 [facility] Comment on above: Non- GFR Calc Glucose measurementOrdered B y: Romeo Raad on 06-05-2024 Glucose [Mass/Vol] 104 mg/dL 74-106 [facility] Comment on above: Fasting Glucose resu lt from 100 to 125 mg/dL suggests IMPAIRED HOMEOSTASIS per A.D.A. criteria. Hematocrit Auto (Bld) [Volum e fraction]Ordered By: Romeo Shankar on 06-05-2024 Hematocrit (Bld) [Volume fraction] 40.8 % 37-47 [facility] Hemoglobin measurementOrdere d By: Romeo Shankar 06-05-2024 Hemoglobin (Bld) [Mass/Vol] 13.3 g/dL 12.0-15.0 [facility] Immature granulocytes/100 WB C Auto (Bld)Ordered By: Romeo Shankar 06-05-2024 Immature granulocytes/100 WBC (Bld) 0.000 % 0.0-0.9 [facility] Comment on above: IG% - Immature Granu locytes (promyelocytes, myelocytes and metamyelocytes) > 1% indicates that a LEFT SHIFT is Present. Laboratory - Chemistry and C hemistry - challengeOrdered By: Romeo Shankar on 06-05-2024 AST [Catalytic activity/Vol] 25 U/L 15-37 [facility] Lymphocytes Auto (Unsp spec) [#/Vol]Ordered By: Romeo Shankar on 06-05-2024 Lymphocytes (Bld) [#/Vol] 1.41 10*3/uL 0.83-4.51 [facility] Lymphocytes/100 WBC Auto (Un sp spec)Ordered By: Romeo Shankar on 06-05-2024 Lymphocytes/100 WBC (Bld) 30.0 % 19-41 [facility] MCV (mean corpuscular volume ) determinationOrdered By: Romeo Shankar on 06-05-2024 MCV (RBC) [Entitic vol] 89.1 fL 81-99 [facility] Mean corpuscular hemoglobin (MCH) determinationOrdered By: Romeo Raad 06-05-2024 MCH (RBC) [Entitic mass] 29.0 pg 27.0-32.0 [facility] Mean corpuscular hemoglobin concentration (MCHC) determinationOrdered By: Romeo Shankar 06-05-2024 MCHC (RBC) [Mass/Vol] 32.6 g/dL 32-36 [facility] Mean platelet volume determi nationOrdered By: Romeo Shankar 06-05-2024 Platelet mean volume (Bld) [Entitic vol] 10.3 fL 6.2-12.0 [facility] Monocyte percentageOrdered B y: Romeo Shankar on 06-05-2024 Monocytes/100 WBC (Bld) 7.2 % 0-10 [facility] Neutrophil percentageOrdered By: Romeo Shankar on 06-05-2024 Neutrophils/100 WBC (Bld) 60.9 % 47-70 [facility] Nucleated red blood cell per centageOrdered By: Romeo Shankar on 06-05-2024 Nucleated RBC/100 WBC (Bld) [Ratio] 0 % 0-5 [facility] Platelet countOrdered By: Jarrell Shankar on 06-05-2024 Platelets (Bld) [#/Vol] 223 10*3/uL 150-450 [facility] Potassium measurementOrdered By: Romeo Shankar on 06-05-2024 Potassium [Moles/Vol] 3.7 mmol/L 3.5-5.1 [facility] RBC Auto (Bld) [#/Vol]Ordere d By: Romeo Shankar on 06-05-2024 RBC (Bld) [#/Vol] 4.58 10*6/uL 4.2-5.4 [facility] Serum anion gap measurementO rdered By: Romeo Shankar on 06-05-2024 Anion gap [Moles/Vol] 8 mmol/L 5-15 [facility] Serum globulin measurementOr dered By: Romeo Shankar 06-05-2024 Globulin (S) [Mass/Vol] 3.9 g/dL 2.2-4.2 [facility] Serum or plasma alanine aguirre otransferase (ALT) measurementOrdered By: Romeo Shankar 06-05-2024 ALT [Catalytic activity/Vol] 40 U/L 13-56 [facility] Serum or plasma albumin tim urement (mass/volume)Ordered By: Romeo Shankar 06-05-2024 Albumin [Mass/Vol] 3.9 g/dL 3.2-5.0 [facility] Serum or plasma alkaline keith sphatase measurementOrdered By: Romeo Shankar 06-05-2024 ALP [Catalytic activity/Vol] 65 U/L 45-117 [facility] Serum or plasma calcium tim urement (mass/volume)Ordered By: Romeo Shankar 06-05-2024 Calcium [Mass/Vol] 9.2 mg/dL 8.5-10.1 [facility] Serum or plasma creatinine m easurement (mass/volume)Ordered By: Romeo Shankar 06-05-2024 Creatinine [Mass/Vol] 0.92 mg/dL 0.55-1.02 [facility] Comment on above: The validity of the calculated GFR & GFRAA in patients over 70 years has not been determined. Clinical correlation is essential. Serum or plasma urea nitroge n measurement (mass/volume)Ordered By: Romeo Shankar on 06-05-2024 Urea nitrogen [Mass/Vol] 14 mg/dL 7-18 [facility] Sodium levelOrdered By: Romeo Shankar on 06-05-2024 Sodium [Moles/Vol] 143 mmol/L 136-145 [facility] TSH QnOrdered By: Romeo Shankar o n 06-05-2024 Thyroid Stimulating Hormone (TSH) 1.200 uIU/mL 0.358-3.740 [facility] Thyroid Stim Hormone (TSH)on 06-05-2024 TSH 1.200 uIU/mL Normal 0.358-3.740 [facility] Comment on above: Performed By: #### L 100.0100, L501.9520, L506.1000, L500.4050 #### [facility] [address] [place], [place], [id number] Total proteinOrdered By: Romeo Shankar on 06-05-2024 Protein [Mass/Vol] 7.8 g/dL 6.4-8.2 [facility] Vitamin D,25 Hydroxyon 06-05 Vitamin D 25-OH 34.4 ng/mL Normal [facility] Comment on above: Result Comment: Emma min D 25(OH) Status Range Deficiency <20 ng/mL (50nmol/L) Insufficiency 20 - 30 ng/mL (50 - 75 nmol/L) Sufficiency 30 - 100 ng/mL (75 - 250 nmol/L) Toxicity >100 ng/mL (>250 nmol/L) Performed By: #### L 100.0100, L501.9520, L506.1000, L500.4050 #### [facility] [address] [place], [place], [id number] White blood cell (WBC) count Ordered By: Romeo Shankar on 06-05-2024 WBC (Bld) [#/Vol] 4.7 10*3/uL 4.4-11.0 [facility] D/C Summary- SPon 04-16-2024 D/C Summary- SP [facility] [address] [place] [address]. [address] [place] [id number] / REHABILITATION SERVICES DISCHARGE SUMMARY MR#: [id number] Acct: [id number] Name: KAIA HALEY Rep #: [id number] : 1955 68 From: Janice Whitmore M.S., [employer] Referring Dr.: Dr. Romeo Shankar MD Status: REG RCR Insurance: MEDICARE PART A B [facility] Discharge Summary Discharged: Discharge: KAIA HALEY is a 68 year old female who was seen for initial cognitive-linguistic evaluation at [facility] on 06/21/23 s/p hemorrhagic stroke. [...] Dr. Romeo Shankar MD RE Signed Normal [facility] 3D MAMM BILAT SCREENon 02-13 3D MAMM BILAT SCREEN [place] [address] Patient: KAIA HALEY Phone#: : [phone] Age: 68 Gender: F Pt. Type: Out Account: [id number] Location: Ordering: ROMEO SHANKAR Exam Date: 02/14/2024/8:15 Family Phys: ROMEO SHANKAR Charge Code: 714226 Physician: [place] Order #: [id number] Dose#: PROCEDURE: BILATERAL SCREENING BREAST TOMOSYNTHESIS MAMMOGRAM WITH CAD COMPARISON: [facility] , 3D BILAT SCREEN, 04/20/2022, 14:05. INDICATIONS: SCREENING [...] Ybarra MD on 02/14/2024 at 12:17 Normal [facility] CBC W/Diff, Automatedon 08-3 0-2023 Absolute Lymph 1.28 X10 3/uL Normal 0.83-4.51 [facility] Comment on above: Performed By: #### L 100.0100, L501.9520, L506.1000, L500.4050 ####[facility] [address] [place], [address] Absolute Neut 3.1 X10 3/uL Normal 2.0-7.7 [facility] Comment on above: Performed By: #### L 100.0100, L501.9520, L506.1000, L500.4050 ####[facility] [address] [place], [address] Basophils/100 WBC (Bld) 0.4 % Normal 0-1 [facility] Comment on above: Performed By: #### L 100.0100, L501.9520, L506.1000, L500.4050 ####[facility] [address] [place], [address] Eosinophils/100 WBC (Bld) 2.2 % Normal 0-5 [facility] Comment on above: Performed By: #### L 100.0100, L501.9520, L506.1000, L500.4050 ####[facility] [address] [place], [address] Erythrocyte distribution width (RBC) [Ratio] 14.7 % High 11.6-14.6 [facility] Comment on above: Performed By: #### L 100.0100, L501.9520, L506.1000, L500.4050 ####[facility] [address] [place], [address] Hematocrit (Bld) [Volume fraction] 41.5 % Normal 37-47 [facility] Comment on above: Performed By: #### L 100.0100, L501.9520, L506.1000, L500.4050 ####[facility] [address] [place], [address] Hemoglobin (Bld) [Mass/Vol] 13.5 g/dL Normal 12.0-15.0 [facility] Comment on above: Performed By: #### L 100.0100, L501.9520, L506.1000, L500.4050 ####[facility] [address] [place], [address] IG% 0.200 Normal 0.0-0.9 [facility] Comment on above: Result Comment: IG% - Immature Granulocytes (promyelocytes, myelocytes and metamyelocytes) > 1% indicates that a LEFT SHIFT is Present. Performed By: #### L 100.0100, L501.9520, L506.1000, L500.4050 ####[facility] [address] [place], [address] Lymphocytes/100 WBC (Bld) 26.2 % Normal 19-41 [facility] Comment on above: Performed By: #### L 100.0100, L501.9520, L506.1000, L500.4050 ####[facility] [address] [place], [address] MCH (RBC) [Entitic mass] 29.3 pg Normal 27.0-32.0 [facility] Comment on above: Performed By: #### L 100.0100, L501.9520, L506.1000, L500.4050 ####[facility] [address] [place], [address] MCHC (RBC) [Mass/Vol] 32.5 g/dL Normal 32-36 [facility] Comment on above: Performed By: #### L 100.0100, L501.9520, L506.1000, L500.4050 ####[facility] [address] [place], [address] MCV (RBC) [Entitic vol] 90.0 fL Normal 81-99 [facility] Comment on above: Performed By: #### L 100.0100, L501.9520, L506.1000, L500.4050 ####[facility] [address] [place], [address] Monocytes/100 WBC (Bld) 7.8 % Normal 0-10 [facility] Comment on above: Performed By: #### L 100.0100, L501.9520, L506.1000, L500.4050 ####[facility] [address] [place], [address] Neutrophils/100 WBC (Bld) 63.2 % Normal 47-70 [facility] Comment on above: Performed By: #### L 100.0100, L501.9520, L506.1000, L500.4050 ####[facility] [address] [place], [address] Nucleated RBC (Bld) [#/Vol] 0 10*3/uL Normal 0-5 [facility] Comment on above: Performed By: #### L 100.0100, L501.9520, L506.1000, L500.4050 ####[facility] [address] [place], [id number] Platelet mean volume (Bld) [Entitic vol] 10.2 fL Normal 6.2-12.0 [facility] Comment on above: Performed By: #### L 100.0100, L501.9520, L506.1000, L500.4050 ####[facility] [address] [place], [id number] Platelets (Bld) [#/Vol] 167 10*3/uL Normal 150-450 [facility] Comment on above: Performed By: #### L 100.0100, L501.9520, L506.1000, L500.4050 ####[facility] [address] [place], [address] RBC (Bld) [#/Vol] 4.61 10*6/uL Normal 4.2-5.4 [facility] Comment on above: Performed By: #### L 100.0100, L501.9520, L506.1000, L500.4050 ####[facility] [address] [place], [address] RDW SD 48.4 fl High 35.1-43.9 [facility] Comment on above: Performed By: #### L 100.0100, L501.9520, L506.1000, L500.4050 ####[facility] [address] [place], [address] WBC (Bld) [#/Vol] 4.9 10*3/uL Normal 4.4-11.0 [facility] Comment on above: Performed By: #### L 100.0100, L501.9520, L506.1000, L500.4050 ####[facility] [address] [place], [id number] Comprehensive Metabolic Prof ilon 01-04-2024 Albumin [Mass/Vol] 3.7 g/dL Normal 3.2-5.0 [facility] Comment on above: Performed By: #### L 100.0100, L501.9520, L506.1000, L500.4050 ####[facility] [address] [place], [address] Albumin/Globulin [Mass ratio] 1.0 {ratio} Normal 0.9-2.4 [facility] Comment on above: Performed By: #### L 100.0100, L501.9520, L506.1000, L500.4050 ####[facility] [address] [place], [address] ALK P 82 U/L Normal 45-117 [facility] Comment on above: Performed By: #### L 100.0100, L501.9520, L506.1000, L500.4050 ####[facility] [address] [place], [address] ALT [Catalytic activity/Vol] 33 U/L Normal 13-56 [facility] Comment on above: Performed By: #### L 100.0100, L501.9520, L506.1000, L500.4050 ####[facility] [address] [place], [address] AST [Catalytic activity/Vol] 22 U/L Normal 15-37 [facility] Comment on above: Performed By: #### L 100.0100, L501.9520, L506.1000, L500.4050 ####[facility] [address] [place], [address] Bilirubin [Mass/Vol] 0.60 mg/dL Normal 0.20-1.00 [facility] Comment on above: Result Comment: For patients on eltrombopag therapy, use of Dimension [place] TBIL is not recommended. Performed By: #### L 100.0100, L501.9520, L506.1000, L500.4050 ####[facility] [address] [place], [address] BUN/CRE 17.0 RATIO Normal 10-20 [facility] Comment on above: Performed By: #### L 100.0100, L501.9520, L506.1000, L500.4050 ####[facility] [address] [place], [address] CA,Total 9.6 mg/dL Normal 8.5-10.1 [facility] Comment on above: Performed By: #### L 100.0100, L501.9520, L506.1000, L500.4050 ####[facility] [address] [place], [address] Chloride [Moles/Vol] 110 mmol/L High 98-107 [facility] Comment on above: Performed By: #### L 100.0100, L501.9520, L506.1000, L500.4050 ####[facility] [address] [place], [address] CO2 [Moles/Vol] 25.0 mmol/L Normal 21.0-32.0 [facility] Comment on above: Performed By: #### L 100.0100, L501.9520, L506.1000, L500.4050 ####[facility] [address] [place], [address] Creatinine [Mass/Vol] 0.94 mg/dL Normal 0.55-1.02 [facility] Comment on above: Result Comment: The validity of the calculated GFR GFRAA in patients over 70 years has not been determined. Clinical correlation is essential. Performed By: #### L 100.0100, L501.9520, L506.1000, L500.4050 ####[facility] [address] [place], [address] EST GFR - AA 76 mL/min Normal >60 [facility] Comment on above: Result Comment: Afri can Eritrean GFR Calc Performed By: #### L 100.0100, L501.9520, L506.1000, L500.4050 ####[facility] [address] [place], [address] GAP 6 Normal 5-15 [facility] Comment on above: Performed By: #### L 100.0100, L501.9520, L506.1000, L500.4050 ####[facility] [address] [place], [address] GFR/1.73 sq M.predicted among non-blacks MDRD (S/P/Bld) [Vol rate/Area] 63 mL/min/{1.73_m2} Normal >60 [facility] Comment on above: Result Comment: Non- GFR Calc Performed By: #### L 100.0100, L501.9520, L506.1000, L500.4050 ####[facility] [address] [place], [address] Globulin (S) [Mass/Vol] 3.8 g/dL Normal 2.2-4.2 [facility] Comment on above: Performed By: #### L 100.0100, L501.9520, L506.1000, L500.4050 ####[facility] [address] [place], [address] Glucose [Mass/Vol] 105 mg/dL Normal 74-106 [facility] Comment on above: Result Comment: Fast ing Glucose result from 100 to 125 mg/dL suggests IMPAIRED HOMEOSTASIS per A.D.A. criteria. Performed By: #### L 100.0100, L501.9520, L506.1000, L500.4050 ####[facility] [address] [place], [address] Potassium [Moles/Vol] 4.0 mmol/L Normal 3.5-5.1 [facility] Comment on above: Performed By: #### L 100.0100, L501.9520, L506.1000, L500.4050 ####[facility] [address] [place], [address] Sodium [Moles/Vol] 141 mmol/L Normal 136-145 [facility] Comment on above: Performed By: #### L 100.0100, L501.9520, L506.1000, L500.4050 ####[facility] [address] [place], [address] T PROT 7.5 g/dL Normal 6.4-8.2 [facility] Comment on above: Performed By: #### L 100.0100, L501.9520, L506.1000, L500.4050 ####[facility] [address] [place], [address] Urea nitrogen [Mass/Vol] 16 mg/dL Normal 7-18 [facility] Comment on above: Performed By: #### L 100.0100, L501.9520, L506.1000, L500.4050 ####[facility] [address] [place], [address] Thyroid Stim Hormone (TSH)on 01-04-2024 TSH 1.270 uIU/mL Normal 0.358-3.740 [facility] Comment on above: Performed By: #### L 100.0100, L501.9520, L506.1000, L500.4050 ####[facility] [address] [place], [address] Vitamin D,25 Hydroxyon 01-03 Vitamin D 25-OH 26.2 ng/mL Normal [facility] Comment on above: Result Comment: Emma min D 25(OH) Status Range Deficiency <20 ng/mL (50nmol/L) Insufficiency 20 - 30 ng/mL (50 - 75 nmol/L) Sufficiency 30 - 100 ng/mL (75 - 250 nmol/L) Toxicity >100 ng/mL (>250 nmol/L) Performed By: #### L 100.0100, L501.9520, L506.1000, L500.4050 ####[facility] [address] [place], [address] MRI BRAIN WITHOUT CONTRASTon 07-25-2023 MRI BRAIN [...] error, please notify the sender immediately at [phone] and permanently delete the original report and destroy any copies or printouts. Normal [facility] Basophil percentageOrdered B y: Romeo Shankar on 07-05-2023 Chloride [Moles/Vol] 107 mmol/L 98-107 [facility] Glucose [Mass/Vol] 101 mg/dL 74-106 [facility] Comment on above: Fasting Glucose resu lt from 100 to 125 mg/dL suggests IMPAIRED HOMEOSTASIS per A.D.A. criteria. Potassium [Moles/Vol] 4.0 mmol/L 3.5-5.1 [facility] Sodium [Moles/Vol] 139 mmol/L 136-145 [facility] Laboratory - Chemistry and C hemistry - challengeOrdered By: Romeo Shankar on 07-05-2023 CO2 [Moles/Vol] 29.0 mmol/L 21.0-32.0 [facility] Urea nitrogen/Creatinine [Mass ratio] 12.0 mg/mg 10-20 [facility] No Panel InformationOrdered By: Romeo Shankar on 07-05-2023 Estimated GFR (MDRD) Amer 71 mL/min >60 [facility] Comment on above: GFR Calc Estimated GFR (MDRD) Non-Af Amer 59 mL/min >60 [facility] Comment on above: Non- GFR Calc Serum or plasma calcium tim urement (mass/volume)Ordered By: Romeo Shankar on 07-05-2023 Calcium [Mass/Vol] 9.3 mg/dL 8.5-10.1 [facility] Serum or plasma creatinine m easurement (mass/volume)Ordered By: Romeo Shankar on 07-05-2023 Creatinine [Mass/Vol] 1.00 mg/dL 0.55-1.02 [facility] Comment on above: The validity of the calculated GFR & GFRAA in patients over 70 years has not been determined. Clinical correlation is essential. Serum or plasma urea nitroge n measurement (mass/volume)Ordered By: Romeo Shankar on 07-05-2023 Urea nitrogen [Mass/Vol] 12 mg/dL 7-18 [facility] Thin prep Papanicolaou smear with manual screeningOrdered By: Romeo Shankar on 07-05-2023 Thin prep Papanicolaou smear with manual screening 3 5-15 [facility] ECGOrdered By: Shawn leung on 06-05-2023 [facility] Work Phone: Absolute lymphocyte countOrd ered By: Romeo Shankar on 06-04-2023 Lymphocytes Auto (Unsp spec) [#/Vol] 1.45 10*3/uL 0.83-4.51 [facility] Automated lymphocyte count a s percentage of total leukocytesOrdered By: Romeo Shankar on 06-04-2023 Lymphocytes/100 WBC Auto (Unsp spec) 25.1 % 19-41 [facility] Basophil percentageOrdered B y: Romeo Shankar on 06-04-2023 Basophils/100 WBC (Bld) 0.3 % 0-1 [facility] Bilirubin [Mass/Vol] 0.40 mg/dL 0.20-1.00 [facility] Comment on above: For patients on eltr ombopag therapy, use of Dimension [place] TBIL is not recommended. Chloride [Moles/Vol] 106 mmol/L 98-107 [facility] Cholesterol [Mass/Vol] 143 mg/dL <200 [facility] Comment on above: <200 mg/dL Desirable 200-240 mg/dL Borderline >240 mg/dL High Risk Eosinophils/100 WBC (Bld) 2.4 % 0-5 [facility] Glucose [Mass/Vol] 108 mg/dL 74-106 [facility] Comment on above: Fasting Glucose resu lt from 100 to 125 mg/dL suggests IMPAIRED HOMEOSTASIS per A.D.A. criteria. Hemoglobin (Bld) [Mass/Vol] 12.7 g/dL 12.0-15.0 [facility] Monocytes/100 WBC (Bld) 7.8 % 0-10 [facility] Neutrophils (Bld) [#/Vol] 3.7 10*3/uL 2.0-7.7 [facility] Neutrophils/100 WBC (Bld) 64.2 % 47-70 [facility] Potassium [Moles/Vol] 3.9 mmol/L 3.5-5.1 [facility] Protein [Mass/Vol] 7.6 g/dL 6.4-8.2 [facility] Sodium [Moles/Vol] 140 mmol/L 136-145 [facility] Triglyceride [Mass/Vol] 128 mg/dL <199 [facility] Comment on above: The drugs N-Acetylcy steine and Metamizole may falsely depress this assay.Serum Triglycerides Reference Interval Normal <150 mg/dL Borderline high 150 - 199 mg/dL High 200 - 499 mg/dL Very High > or = 500 mg/dL WBC (Bld) [#/Vol] 5.8 10*3/uL 4.4-11.0 [facility] Determination of erythrocyte mean corpuscular volume (MCV)Ordered By: Romeo Shankar on 06-04-2023 MCV (RBC) [Entitic vol] 89.7 fL 81-99 [facility] Erythrocyte distribution wid th ratioOrdered By: [facility] 06-04-2023 Erythrocyte distribution width (RBC) [Ratio] 14.0 % 11.6-14.6 [facility] Erythrocyte distribution wid th standard deviationOrdered By: [facility] on 06-04-2023 Erythrocyte distribution width (RBC) [Entitic vol] 46.2 fL 35.1-43.9 [facility] Hematocrit Auto (Bld) [Volum e fraction]Ordered By: [facility] on 06-04-2023 Hematocrit (Bld) [Volume fraction] 39.4 % 37-47 [facility] Immature granulocytes/100 WB C Auto (Bld)Ordered By: [facility] 06-04-2023 Immature granulocytes/100 WBC (Bld) 0.200 % 0.0-0.9 [facility] Comment on above: IG% - Immature Granu locytes (promyelocytes, myelocytes and metamyelocytes) > 1% indicates that a LEFT SHIFT is Present. Laboratory - Chemistry and C hemistry - challengeOrdered By: [facility] on 06-04-2023 Albumin/Globulin [Mass ratio] 0.9 {ratio} 0.9-2.4 [facility] ALP [Catalytic activity/Vol] 80 U/L 45-117 [facility] ALT [Catalytic activity/Vol] 33 U/L 13-56 [facility] Cholesterol in HDL (Body fld) [Mass/Vol] 58 mg/dL >40 [facility] Comment on above: The drugs N-Acetylcy steine and Metamizole may falsely depress this assay. Reference Range HDL <40 mg/dL Low HDL Cholesterol HDL >or= 60 mg/dL High HDL Cholesterol Cholesterol in LDL (Body fld) [Moles/Vol] 59 mg/dL 0-130 [facility] Cholesterol in VLDL Calc [Moles/Vol] 26 mg/dL 5-40 [facility] CO2 [Moles/Vol] 29.0 mmol/L 21.0-32.0 [facility] Globulin (S) [Mass/Vol] 3.9 g/dL 2.2-4.2 [facility] Urea nitrogen/Creatinine [Mass ratio] 15.6 mg/mg 10-20 [facility] Laboratory - Hematology and Cell countsOrdered By: Romeo Shankar on 06-04-2023 MCH (RBC) [Entitic mass] 28.9 pg 27.0-32.0 [facility] MCHC (RBC) [Mass/Vol] 32.2 g/dL 32-36 [facility] Nucleated RBC/100 WBC (Bld) [Ratio] 0 % 0-5 [facility] Platelets (Bld) [#/Vol] 269 10*3/uL 150-450 [facility] No Panel InformationOrdered By: Romeo Shankar on 06-04-2023 Estimated GFR (MDRD) Amer 64 mL/min >60 [facility] Comment on above: GFR Calc Estimated GFR (MDRD) Non-Af Amer 53 mL/min >60 [facility] Comment on above: Non- GFR Calc Hepatitis C Antibody Non-Reactive Nonreactive [facility] Comment on above: Non Reactive: < 0.8 Equivocal: >/= 0.8 to < 1.0 Reactive: >/= 1.0The CDC recommends that a reactive/equivocal HCV antibody result be followed up by the HCV Nucleic Acid Amplificationtest (056610) Vitamin D 25-Hydroxy 37.4 ng/mL [facility] Comment on above: Vitamin D 25(OH) Sta tus Range Deficiency <20 ng/mL (50nmol/L) Insufficiency 20 - 30 ng/mL (50 - 75 nmol/L) Sufficiency 30 - 100 ng/mL (75 - 250 nmol/L) Toxicity >100 ng/mL (>250 nmol/L) Platelet mean volume Shawn-Ec ker (Bld) [Entitic vol]Ordered By: Romeo Shankar on 06-04-2023 Platelet mean volume (Bld) [Entitic vol] 10.2 fL 6.2-12.0 [facility] RBC Auto (Bld) [#/Vol]Ordere d By: Romeo Shankar on 06-04-2023 RBC (Bld) [#/Vol] 4.39 10*6/uL 4.2-5.4 [facility] Serum or plasma calcium tim urement (mass/volume)Ordered By: Romeo Shankar on 06-04-2023 Calcium [Mass/Vol] 9.1 mg/dL 8.5-10.1 [facility] Serum or plasma creatinine m easurement (mass/volume)Ordered By: Romeo Shankar on 06-04-2023 Creatinine [Mass/Vol] 1.09 mg/dL 0.55-1.02 [facility] Comment on above: The validity of the calculated GFR & GFRAA in patients over 70 years has not been determined. Clinical correlation is essential. Serum or plasma thyroid stim ulating hormone (TSH) measurement (units/volume)Ordered By: Romeo Shankar on 06-04-2023 TSH Qn 2.05 uIU/mL 0.358-3.74 [facility] Serum or plasma urea nitroge n measurement (mass/volume)Ordered By: Romeo Shankar on 06-04-2023 Urea nitrogen [Mass/Vol] 17 mg/dL 7-18 [facility] Thin prep Papanicolaou smear with manual screeningOrdered By: Romeo Shankar on 06-04-2023 Thin prep Papanicolaou smear with manual screening 3.7 g/dL 3.2-5.0 [facility] Thin prep Papanicolaou smear with manual screening 29 U/L 15-37 [facility] Thin prep Papanicolaou smear with manual screening 5 5-15 [facility] CALCIUMon 06-01-2023 Calcium [Mass/Vol] 8.7 mg/dL Normal 8.6-10.5 [facility] Comment on above: Performed By: #### P TPTT #### [facility] (DEFAULT) [address] [place] [address] Calcium [Mass/Vol] 8.7 mg/dL 8.6 - 10. 5 mg/dL [facility] CBC AND ELECTRONIC DIFFon Abs Baso Auto < Normal 0.00-0.15 [facility] Comment on above: Performed By: #### P TPTT #### [facility] (DEFAULT) [address] [place] [address] Basophils/100 WBC (Bld) 0.1 % Normal [facility] Comment on above: Performed By: #### P TPTT #### [facility] (DEFAULT) [address] [place] [address] DIFF STATUS Electronic Differential Normal [facility] Comment on above: Performed By: #### P TPTT #### [facility] (DEFAULT) [address] [place] [address] Eosinophils (Bld) [#/Vol] 0.09 10*3/uL Normal 0.00-0.42 [facility] Comment on above: Performed By: #### P TPTT #### [facility] (DEFAULT) [address] [address] Eosinophils/100 WBC (Bld) 1.2 % Normal [facility] Comment on above: Performed By: #### P TPTT #### [facility] (DEFAULT) [address] [place] [address] Hematocrit (Bld) [Volume fraction] 38.8 % Normal 34.9-44.3 [facility] Comment on above: Performed By: #### P TPTT #### [facility] (DEFAULT) [address] [place] [address] Hemoglobin (Bld) [Mass/Vol] 12.5 g/dL Normal 11.4-15.2 [facility] Comment on above: Performed By: #### P TPTT #### [facility] (DEFAULT) [address] [place] [address] Immature Grans % 0.3 % Normal [facility] Comment on above: Performed By: #### P TPTT #### [facility] (DEFAULT) [address] [address] Immature Grans Absolute < Normal <=0.08 [facility] Comment on above: Performed By: #### P TPTT #### [facility] (DEFAULT) [address] [address] Lymphocytes (Bld) [#/Vol] 1.59 10*3/uL Normal 1.16-3.51 [facility] Comment on above: Performed By: #### P TPTT #### [facility] (DEFAULT) [address] [address] Lymphocytes/100 WBC (Bld) 21.9 % Normal [facility] Comment on above: Performed By: #### P TPTT #### [facility] (DEFAULT) [address] [address] MCV (RBC) [Entitic vol] 90.0 fL Normal 79.6-97.7 [facility] Comment on above: Performed By: #### P TPTT #### [facility] (DEFAULT) [address] [address] Mean Cell Hgb 29.0 pg Normal 25.9-33.9 [facility] Comment on above: Performed By: #### P TPTT #### [facility] (DEFAULT) [address] [address] Mean Cell Hgb Conc 32.2 g/dL Normal 31.4-35.9 [facility] Comment on above: Performed By: #### P TPTT #### [facility] (DEFAULT) [address] [address] Monocytes (Bld) [#/Vol] 0.71 10*3/uL Normal 0.22-0.87 [facility] Comment on above: Performed By: #### P TPTT #### [facility] (DEFAULT) [address] [place] [address] Monocytes/100 WBC (Bld) 9.8 % Normal [facility] Comment on above: Performed By: #### P TPTT #### [facility] (DEFAULT) [address] [place] [address] Nucleated RBC 0.0 /100 WBC Normal <=0.2 [facility] Comment on above: Performed By: #### P TPTT #### [facility] (DEFAULT) [address] [place] [address] Platelet mean volume (Bld) [Entitic vol] 9.8 fL Normal 8.5-12.2 [facility] Comment on above: Performed By: #### P TPTT #### [facility] (DEFAULT) [address] [place] [address] Platelets (Bld) [#/Vol] 205 10*3/uL Normal 150-393 [facility] Comment on above: Performed By: #### P TPTT #### [facility] (DEFAULT) [address] [place] [address] RBC (Bld) [#/Vol] 4.31 10*6/uL Normal 3.91-5.04 [facility] Comment on above: Performed By: #### P TPTT #### [facility] (DEFAULT) [address] [place] [address] RBC Distribution 14.4 % Normal 10.8-14.9 [facility] Comment on above: Performed By: #### P TPTT #### [facility] (DEFAULT) [address] [place] [address] Segs + Bands Auto 66.7 % Normal [facility] Comment on above: Performed By: #### P TPTT #### [facility] (DEFAULT) [address] [place] [address] Segs + Bands,Absolute Auto 4.84 K/uL Normal 1.64-7.28 [facility] Comment on above: Performed By: #### P TPTT #### [facility] (DEFAULT) [address] [place] [address] WBC (Bld) [#/Vol] 7.26 10*3/uL Normal 3.99-11.19 [facility] Comment on above: Performed By: #### P TPTT #### [facility] (DEFAULT) [address] [place] [address] Basophils (Bld) [#/Vol] K/uL 0.00 - 0.15 K/uL [facility] Basophils/100 WBC (Bld) 0.1 % [facility] Differential cell count method Nom (Bld) Electronic Differential [facility] Eosinophils (Bld) [#/Vol] 0.09 10*3/uL 0.00 - 0.42 K/uL [facility] Eosinophils/100 WBC (Bld) 1.2 % [facility] Erythrocyte distribution width (RBC) [Ratio] 14.4 % 10.8 - 14.9 % [facility] Hematocrit (Bld) [Volume fraction] 38.8 % 34.9 - 44.3 % [facility] Hemoglobin (Bld) [Mass/Vol] 12.5 g/dL 11.4 - 15.2 g/dL [facility] Immature granulocytes (Bld) [#/Vol] K/uL NINF - 0.08 K/uL [facility] Immature granulocytes/100 WBC (Bld) 0.3 % [facility] Lymphocytes (Bld) [#/Vol] 1.59 10*3/uL 1.16 - 3.51 K/uL [facility] Lymphocytes/100 WBC (Bld) 21.9 % [facility] MCH (RBC) [Entitic mass] 29.0 pg 25.9 - 33.9 pg [facility] MCHC (RBC) [Mass/Vol] 32.2 g/dL 31.4 - 35.9 g/dL [facility] MCV (RBC) [Entitic vol] 90.0 fL 79.6 - 97.7 fL [facility] Monocytes (Bld) [#/Vol] 0.71 10*3/uL 0.22 - 0.87 K/uL [facility] Monocytes/100 WBC (Bld) 9.8 % [facility] Neutrophils (Bld) [#/Vol] 4.84 10*3/uL 1.64 - 7.28 K/uL [facility] Nucleated RBC/100 WBC (Bld) [Ratio] 0.0 % [facility] Platelet mean volume (Bld) [Entitic vol] 9.8 fL 8.5 - 12.2 fL [facility] Platelets (Bld) [#/Vol] 205 10*3/uL 150 - 393 K /uL [facility] RBC (Bld) [#/Vol] 4.31 10*6/uL [facility] Segmented neutrophils/100 WBC (Bld) 66.7 % [facility] WBC (Bld) [#/Vol] 7.26 10*3/uL 3.99 - 11. 19 K/uL [facility] CHEM 7 (LYTES,BUN,CREA,GLUC) on 06-01-2023 Anion gap [Moles/Vol] 14 mmol/L Normal 7-17 [facility] Comment on above: Performed By: #### T YPEC #### [facility] (DEFAULT) [address] [address] Chloride [Moles/Vol] 105 mmol/L Normal 98-108 [facility] Comment on above: Performed By: #### T YPEC #### [facility] (DEFAULT) [address] [address] CO2 [Moles/Vol] 26 mmol/L Normal 21-31 [facility] Comment on above: Performed By: #### T YPEC #### [facility] (DEFAULT) [address] [address] Creatinine [Mass/Vol] 0.93 mg/dL Normal 0.50-1.20 [facility] Comment on above: Performed By: #### T YPEC #### [facility] (DEFAULT) [address] [address] GFR/1.73 sq M.predicted among non-blacks MDRD (S/P/Bld) [Vol rate/Area] 68 mL/min/{1.73_m2} Normal >=60 [facility] Comment on above: Result Comment: Repo rted eGFR is based on the CKD-EPI 2020 equation using creatinine, age, and sex. Performed By: #### T YPEC #### [facility] (DEFAULT) [address] [address] Glucose [Mass/Vol] 102 mg/dL High 70-99 [facility] Comment on above: Performed By: #### T YPEC #### [facility] (DEFAULT) [address] [address] Osmolality [Osmolality] 294 mosm/kg Normal 278-305 [facility] Comment on above: Performed By: #### T YPEC #### [facility] (DEFAULT) [address] [address] Potassium [Moles/Vol] 3.7 mmol/L Normal 3.5-5.0 [facility] Comment on above: Performed By: #### T YPEC #### [facility] (DEFAULT) [address] [address] Sodium [Moles/Vol] 141 mmol/L Normal 135-145 [facility] Comment on above: Performed By: #### T YPEC #### [facility] (DEFAULT) [address] [address] Urea nitrogen [Mass/Vol] 13 mg/dL Normal 7-25 [facility] Comment on above: Performed By: #### T YPEC #### [facility] (DEFAULT) [address] [address] Urea nitrogen/Creatinine [Mass ratio] 14 mg/mg Normal [facility] Comment on above: Performed By: #### T YPEC #### [facility] (DEFAULT) [address] [place] [address] CHEM 7 (LYTES,BUN,CREA,GLUC) Ordered By: Katerina Cramer on 06-01-2023 Anion gap [Moles/Vol] 14 mmol/L 7 - 17 mmol/L [facility] Chloride [Moles/Vol] 105 mmol/L 98 - 10 8 mmol/L [facility] CO2 [Moles/Vol] 26 mmol/L 21 - 31 mmol/L [facility] Creatinine [Mass/Vol] 0.93 mg/dL 0.50 - 1.20 mg/dL [facility] eGFR, CKD-EPI, Female 69 - PINF [facility] Comment on above: Reported eGFR is bas ed on the CKD-EPI 2020 equation using creatinine, age, and sex. Glucose [Mass/Vol] 102 mg/dL High 70 - 99 mg/dL [facility] Interpretation and review of laboratory results Abnormal [facility] Osmolality Calc [Osmolality] 294 [facility] Potassium [Moles/Vol] 3.7 mmol/L 3.5 - 5.0 mmol/L [facility] Sodium [Moles/Vol] 141 mmol/L 135 - 145 mmol/L [facility] Urea nitrogen [Mass/Vol] 13 mg/dL 7 - 25 mg/dL [facility] Urea nitrogen/Creatinine [Mass ratio] 14 mg/mg [facility] Cardiac echo study Procedure Ordered By: Joan Love on 06-01-2023 Ao peak sharyn 1.32 m/s [facility] Work Phone: Ao SOV index 1.35 cm/m2 [facility] Work Phone: Ao STJ index 1.65 cm/m2 [facility] Work Phone: AV LVOT peak gradient 5 mmHg [facility] Work Phone: AV peak gradient 7 [facility]: AV Velocity Ratio 0.83 [facility] Work Phone: PAULA (continuity Vmax) 3.08 cm2 [facility] Work Phone: PAULA index (continuity Vmax) 1.49 m/s [facility] Work Phone: Avg e' pk sharyn 0.09 m/s [facility] Work Phone: Avg E/e' ratio 7.56 [facility] Work Phone: Body surface area Derived from formula 2.07 m2 [facility] Work Phone: BP EF 59 % [facility] Work Phone: DI (Vmax) 0.83 [facility] Work Phone: E wave decelartion time 145.80 msec [facility] Work Phone: e' lateral pk sharyn 0.0859 m/s [facility] Work Phone: e' lateral pk sharyn 0.09 m/s [facility] Work Phone: e' septal pk sharyn 0.1004 m/s [facility] Work Phone: e' septal pk sharyn 0.10 m/s [facility] Work Phone: E/A ratio 1.56 [facility] Work Phone: E/e' lateral ratio 8.15 [facility] Work Phone: E/e' septal ratio 6.97 [facility] Work Phone: EF SP 2CH 59 [facility] Work Phone: EF SP 4CH 59 [facility] Work Phone: FS 35 % 28 - 44 % [facility] Work Phone: IVS 0.87 cm [facility] Work Phone: LA ESV SP 2CH (MOD) 63 mL [facility] Work Phone: LA ESV SP 4CH (MOD) 66 mL [facility] Work Phone: LA size 4.06 cm [facility] Work Phone: LEFT ATRIAL DIAMETER INDEX 1.96 cm/m2 [facility] Work Phone: LV EDV BP 112 mL [facility] Work Phone: LV EDV SP 2CH 104 mL [facility] Work Phone: LV EDV SP 4CH 114 mL [facility] Work Phone: LV ESV BP 46 mL [facility] Work Phone: LV ESV SP 2CH 43 mL [facility] Work Phone: LV ESV SP 4CH 47 mL [facility] Work Phone: LV mass 156.45 g [facility] Work Phone: LV Mass Index 75.6 g/m2 [facility] Work Phone: LV RWT 0.40 [facility] Work Phone: LV stroke volume BP (ml) 66 mL [facility] Work Phone: LV stroke volume index BP 31.88 mL/m2 [facility] Work Phone: LVIDD 4.86 cm [facility] Work Phone: LVIDS 3.15 cm [facility] Work Phone: LVOT area 3.70 cm2 [facility] Work Phone: LVOT diameter 2.17 cm [facility] Work Phone: LVOT peak sharyn 1.10 m/s [facility] Work Phone: LVOT peak VTI 23.94 cm [facility] Work Phone: LVOT stroke volume 88 cm3 [facility] Work Phone: LVOT stroke volume index 42.75 ml/m2 [facility] Work Phone: MV pk A sharyn 0.45 m/s [facility] Work Phone: MV pk E sharyn 0.70 m/s [facility] Work Phone: [facility] ECHO LV BIPLANE SYSTOLIC VOLUME INDEX 22.22 mL/m2 [facility] Work Phone: [facility] ECHO LV BP DIASTOLIC VOLUME INDEX 54.11 mL/m2 [facility] Work Phone: PV [facility] gradient [facility] PV PK SHARYN 0.90 m/s [facility] Work Phone: PW 0.98 cm [facility] Work Phone: RA vol index 4CH (MOD) 36.23 mL/m2 [facility] Work Phone: Right atrium volume 4 chamber method of disks 75 mL [facility] Work Phone: RV Area diastolic 28.60 cm2 [facility] Work Phone: RV Area systolic 17.00 cm2 [facility] Work Phone: RV basal diam 4.70 cm [facility] Work Phone: RV Fractional area change 40.6 % [facility] Work Phone: RV long diam 9.20 cm [facility] Work Phone: RV mid diam 3.60 cm [facility] Work Phone: RV S' 11.00 cm/s [facility] Work Phone: RVOT peak gradient 2 [facility]: RVOT peak sharyn 0.63 m/s [facility] Work Phone: RVOT peak VTI 13.20 cm [facility] Work Phone: Sinus 2.79 cm [facility] Work Phone: STJ 3.42 cm [facility] Work Phone: Stroke Volume 88 cm/mL [facility] Work Phone: Stroke volume index 43 [facility] Work Phone: TAPSE 2.88 cm [facility] Work Phone: TR pk grad 17 mmHg [facility] Work Phone: TR pk sharyn 2.09 m/s [facility] Work Phone: [facility] Work Phone: Cardiac echo study Procedure on [...] Mild regurgitation. No stenosis. No evidence of xiemi-um-dwun shunt with agitated saline contrast (NEGATIVE bubble [...] study quality was fair. Imaging system used: Siemens. Indications Indications for study: stroke/tia. Wall Scoring Score Index: 1.00 The left ventricular wall motion is normal. [facility] Radiology Study observation (narrative) [facility] ECHOCARDIOGRAMon 06-01-2023 Echocardiography ? Left [...] regurgitation. No stenosis. ? No evidence of gipty-rk-ymmw shunt with agitated saline contrast (NEGATIVE bubble study). Table formatting from the original result was not included. Images from the original result were not included. [facility] Information Patient Name Kaia Haley [...] regurgitation. No stenosis. ? No evidence of ujwhe-vd-ubbk shunt with agitated saline contrast (NEGATIVE bubble [...] Role Read Date Joan Love MD Echo Beaumont 06/01/2023 Wall Scoring Score Index: 1.00 The [...] sharyn 0.7 (more content not included)... Normal [facility] HEPATIC FUNCTION PANELon Albumin [Mass/Vol] 4.1 g/dL Normal 3.5-5.0 [facility] Comment on above: Performed By: #### P TPTT #### [facility] (DEFAULT) [address] [address] ALP [Catalytic activity/Vol] 62 U/L Normal 32-126 [facility] Comment on above: Performed By: #### P TPTT #### [facility] (DEFAULT) [address] [address] ALT [Catalytic activity/Vol] 16 U/L Normal 9-48 [facility] Comment on above: Performed By: #### P TPTT #### [facility] (DEFAULT) [address] [place] [address] AST [Catalytic activity/Vol] 19 U/L Normal 10-39 [facility] Comment on above: Performed By: #### P TPTT #### [facility] (DEFAULT) [address] [place] [address] Bilirubin [Mass/Vol] 0.5 mg/dL Normal <1.5 [facility] Comment on above: Performed By: #### P TPTT #### [facility] (DEFAULT) [address] [place] [address] Bilirubin.indirect [Mass/Vol] 0.1 mg/dL Normal <0.3 [facility] Comment on above: Performed By: #### P TPTT #### [facility] (DEFAULT) [address] [place] [address] Protein [Mass/Vol] 7.2 g/dL Normal 6.4-8.3 [facility] Comment on above: Performed By: #### P TPTT #### [facility] (DEFAULT) [address] [place] [address] Albumin [Mass/Vol] 4.1 g/dL 3.5 - 5.0 g/dL [facility] ALP [Catalytic activity/Vol] 62 U/L 32 - 126 U/L [facility] ALT [Catalytic activity/Vol] 16 U/L 9 - 48 U/L [facility] AST [Catalytic activity/Vol] 19 U/L 10 - 39 U/L [facility] Bilirubin [Mass/Vol] 0.5 mg/dL NINF - 1.5 mg/dL [facility] Bilirubin.direct [Mass/Vol] 0.1 mg/dL NINF - 0.3 mg/dL [facility] Protein [Mass/Vol] 7.2 g/dL 6.4 - 8.3 g/dL [facility] MAGNESIUMon 06-01-2023 Magnesium [Mass/Vol] 2.2 mg/dL Normal 1.6-2.6 [facility] Comment on above: Performed By: #### P TPTT #### [facility] (DEFAULT) [address] [place] [address] Magnesium [Mass/Vol] 2.2 mg/dL 1.6 - 2 .6 mg/dL [facility] No Panel Informationon 06-01 Interpretation and review of laboratory results Normal [facility] PHOSPHATE, INORGANICon 06-01 Phosphorous 4.0 mg/dL Normal 2.2-4.6 [facility] Comment on above: Performed By: #### P TPTT #### [facility] (DEFAULT) [address] [place] [address] Phosphate [Mass/Vol] 4.0 mg/dL 2.2 - 4 .6 mg/dL [facility] PLATELET COUNTon 06-01-2023 Interpretation and review of laboratory results Normal [facility] Platelet mean volume (Bld) [Entitic vol] 9.8 fL 8.5 - 12.2 fL [facility] Platelets (Bld) [#/Vol] 205 10*3/uL 150 - 393 K /uL [facility] PT,INR,PTTon 06-01-2023 aPTT Coag (Bld) [Time] 25.8 s Normal 24.0-34.3 [facility] Comment on above: Performed By: #### P TPTT #### [facility] (DEFAULT) [address] [place] [address] INR Coag (PPP) [Relative time] 1.0 {INR} Normal 0.9-1.1 [facility] Comment on above: Performed By: #### P TPTT #### [facility] (DEFAULT) [address] [place] [address] PT Coag (PPP) [Time] 12.7 s Normal 11.9-14.2 [facility] Comment on above: Performed By: #### P TPTT #### [facility] (DEFAULT) [address] [place] [address] PT,INR,PTTOrdered By: Henry Nguyen on 06-01-2023 aPTT Coag (PPP) [Time] 25.8 s [facility] INR Coag (Bld) [Relative time] 1.0 {INR} 0.9 - 1.1 [facility] Interpretation and review of laboratory results Normal [facility] PT Coag (PPP) [Time] 12.7 s [facility] T4 FREEon 06-01-2023 Free T4 [Mass/Vol] 1.04 ng/dL 0.89 - 1. 76 ng/dL [facility] Interpretation and review of laboratory results Normal [facility] Free T4 [Mass/Vol] 1.04 ng/dL Normal 0.89-1.76 [facility] Comment on above: Performed By: #### T YPEC #### [facility] (DEFAULT) [address] [place] [address] TSH W/FT4 REFLEXon TSH 5.251 uIU/mL High 0.550-4.780 [facility] Comment on above: Performed By: #### T SHQR #### [facility] (DEFAULT) [address] [place] [address] Interpretation and review of laboratory results Abnormal [facility] TSH Qn 5.251 m[IU]/L High [facility] ABORH TYPE RECONFIRMATIONon 05-31-2023 ABO/RH(D) TYPE Positive Normal [facility] Comment on above: Performed By: #### T YPEC #### [facility] (DEFAULT) [address] [place] [address] ABO/RH(D) TYPE Positive [facility] CALCIUMon 05-31-2023 Calcium [Mass/Vol] 9.0 mg/dL Normal 8.6-10.5 [facility] Comment on above: Performed By: #### P TPTT #### [facility] (DEFAULT) [address] [place] [address] Calcium [Mass/Vol] 9.0 mg/dL 8.6 - 10. 5 mg/dL [facility] CBC AND ELECTRONIC DIFFon Abs Baso Auto < Normal 0.00-0.15 [facility] Comment on above: Performed By: #### P TPTT #### [facility] (DEFAULT) [address] [place] [address] Basophils/100 WBC (Bld) 0.4 % Normal [facility] Comment on above: Performed By: #### P TPTT #### [facility] (DEFAULT) [address] [place] [address] DIFF STATUS Electronic Differential Normal [facility] Comment on above: Performed By: #### P TPTT #### [facility] (DEFAULT) [address] [address] Eosinophils (Bld) [#/Vol] 0.08 10*3/uL Normal 0.00-0.42 [facility] Comment on above: Performed By: #### P TPTT #### [facility] (DEFAULT) [address] [address] Eosinophils/100 WBC (Bld) 1.1 % Normal [facility] Comment on above: Performed By: #### P TPTT #### [facility] (DEFAULT) [address] [address] Hematocrit (Bld) [Volume fraction] 37.6 % Normal 34.9-44.3 [facility] Comment on above: Performed By: #### P TPTT #### [facility] (DEFAULT) [address] [address] Hemoglobin (Bld) [Mass/Vol] 12.5 g/dL Normal 11.4-15.2 [facility] Comment on above: Performed By: #### P TPTT #### [facility] (DEFAULT) [address] [address] Immature Grans % 0.4 % Normal [facility] Comment on above: Performed By: #### P TPTT #### [facility] (DEFAULT) [address] [address] Immature Grans Absolute < Normal <=0.08 [facility] Comment on above: Performed By: #### P TPTT #### [facility] (DEFAULT) [address] [address] Lymphocytes (Bld) [#/Vol] 1.40 10*3/uL Normal 1.16-3.51 [facility] Comment on above: Performed By: #### P TPTT #### [facility] (DEFAULT) [address] [place] [address] Lymphocytes/100 WBC (Bld) 18.5 % Normal [facility] Comment on above: Performed By: #### P TPTT #### [facility] (DEFAULT) [address] [place] [address] MCV (RBC) [Entitic vol] 87.9 fL Normal 79.6-97.7 [facility] Comment on above: Performed By: #### P TPTT #### [facility] (DEFAULT) [address] [place] [address] Mean Cell Hgb 29.2 pg Normal 25.9-33.9 [facility] Comment on above: Performed By: #### P TPTT #### [facility] (DEFAULT) [address] [place] [address] Mean Cell Hgb Conc 33.2 g/dL Normal 31.4-35.9 [facility] Comment on above: Performed By: #### P TPTT #### [facility] (DEFAULT) [address] [place] [address] Monocytes (Bld) [#/Vol] 0.69 10*3/uL Normal 0.22-0.87 [facility] Comment on above: Performed By: #### P TPTT #### [facility] (DEFAULT) [address] [place] [address] Monocytes/100 WBC (Bld) 9.1 % Normal [facility] Comment on above: Performed By: #### P TPTT #### [facility] (DEFAULT) [address] [place] [address] Nucleated RBC 0.0 /100 WBC Normal <=0.2 [facility] Comment on above: Performed By: #### P TPTT #### [facility] (DEFAULT) [address] [place] [address] Platelet mean volume (Bld) [Entitic vol] 10.1 fL Normal 8.5-12.2 [facility] Comment on above: Performed By: #### P TPTT #### [facility] (DEFAULT) [address] [place] [address] Platelets (Bld) [#/Vol] 230 10*3/uL Normal 150-393 [facility] Comment on above: Performed By: #### P TPTT #### [facility] (DEFAULT) [address] [place] [address] RBC (Bld) [#/Vol] 4.28 10*6/uL Normal 3.91-5.04 [facility] Comment on above: Performed By: #### P TPTT #### [facility] (DEFAULT) [address] [place] [address] RBC Distribution 14.3 % Normal 10.8-14.9 [facility] Comment on above: Performed By: #### P TPTT #### [facility] (DEFAULT) [address] [place] [address] Segs + Bands Auto 70.5 % Normal [facility] Comment on above: Performed By: #### P TPTT #### [facility] (DEFAULT) [address] [place] [address] Segs + Bands,Absolute Auto 5.33 K/uL Normal 1.64-7.28 [facility] Comment on above: Performed By: #### P TPTT #### [facility] (DEFAULT) [address] [place] [address] WBC (Bld) [#/Vol] 7.56 10*3/uL Normal 3.99-11.19 [facility] Comment on above: Performed By: #### P TPTT #### [facility] (DEFAULT) [address] [place] [address] Basophils (Bld) [#/Vol] K/uL 0.00 - 0.15 K/uL [facility] Basophils/100 WBC (Bld) 0.4 % [facility] Differential cell count method Nom (Bld) Electronic Differential [facility] Eosinophils (Bld) [#/Vol] 0.08 10*3/uL 0.00 - 0.42 K/uL [facility] Eosinophils/100 WBC (Bld) 1.1 % [facility] Erythrocyte distribution width (RBC) [Ratio] 14.3 % 10.8 - 14.9 % [facility] Hematocrit (Bld) [Volume fraction] 37.6 % 34.9 - 44.3 % [facility] Hemoglobin (Bld) [Mass/Vol] 12.5 g/dL 11.4 - 15.2 g/dL [facility] Immature granulocytes (Bld) [#/Vol] K/uL NINF - 0.08 K/uL [facility] Immature granulocytes/100 WBC (Bld) 0.4 % [facility] Lymphocytes (Bld) [#/Vol] 1.40 10*3/uL 1.16 - 3.51 K/uL [facility] Lymphocytes/100 WBC (Bld) 18.5 % [facility] MCH (RBC) [Entitic mass] 29.2 pg 25.9 - 33.9 pg [facility] MCHC (RBC) [Mass/Vol] 33.2 g/dL 31.4 - 35.9 g/dL [facility] MCV (RBC) [Entitic vol] 87.9 fL 79.6 - 97.7 fL [facility] Monocytes (Bld) [#/Vol] 0.69 10*3/uL 0.22 - 0.87 K/uL [facility] Monocytes/100 WBC (Bld) 9.1 % [facility] Neutrophils (Bld) [#/Vol] 5.33 10*3/uL 1.64 - 7.28 K/uL [facility] Nucleated RBC/100 WBC (Bld) [Ratio] 0.0 % [facility] Platelet mean volume (Bld) [Entitic vol] 10.1 fL 8.5 - 12.2 fL [facility] Platelets (Bld) [#/Vol] 230 10*3/uL 150 - 393 K /uL [facility] RBC (Bld) [#/Vol] 4.28 10*6/uL [facility] Segmented neutrophils/100 WBC (Bld) 70.5 % [facility] WBC (Bld) [#/Vol] 7.56 10*3/uL 3.99 - 11. 19 K/uL [facility] CHEM 7 (LYTES,BUN,CREA,GLUC) on 05-31-2023 Anion gap [Moles/Vol] 14 mmol/L Normal 7-17 [facility] Comment on above: Performed By: #### P TPTT #### [facility] (DEFAULT) [address] [place] [address] Chloride [Moles/Vol] 103 mmol/L Normal 98-108 [facility] Comment on above: Performed By: #### P TPTT #### [facility] (DEFAULT) [address] [place] [address] CO2 [Moles/Vol] 22 mmol/L Normal 21-31 [facility] Comment on above: Performed By: #### P TPTT #### [facility] (DEFAULT) [address] [place] [address] Creatinine [Mass/Vol] 0.80 mg/dL Normal 0.50-1.20 [facility] Comment on above: Performed By: #### P TPTT #### [facility] (DEFAULT) [address] [place] [address] GFR/1.73 sq M.predicted among non-blacks MDRD (S/P/Bld) [Vol rate/Area] 81 mL/min/{1.73_m2} Normal >=60 [facility] Comment on above: Result Comment: Repo rted eGFR is based on the CKD-EPI 2020 equation using creatinine, age, and sex. Performed By: #### P TPTT #### [facility] (DEFAULT) [address] [place] [address] Glucose [Mass/Vol] 134 mg/dL High 70-99 [facility] Comment on above: Performed By: #### P TPTT #### [facility] (DEFAULT) [address] [place] [address] Osmolality [Osmolality] 286 mosm/kg Normal 278-305 [facility] Comment on above: Performed By: #### P TPTT #### [facility] (DEFAULT) [address] [place] [address] Potassium [Moles/Vol] 3.7 mmol/L Normal 3.5-5.0 [facility] Comment on above: Performed By: #### P TPTT #### [facility] (DEFAULT) [address] [place] [address] Sodium [Moles/Vol] 135 mmol/L Normal 135-145 [facility] Comment on above: Performed By: #### P TPTT #### [facility] (DEFAULT) [address] [place] [address] Urea nitrogen [Mass/Vol] 14 mg/dL Normal 7-25 [facility] Comment on above: Performed By: #### P TPTT #### [facility] (DEFAULT) [address] [place] [address] 27248 Urea nitrogen/Creatinine [Mass ratio] 18 mg/mg Normal [facility] Comment on above: Performed By: #### P TPTT #### [facility] (DEFAULT) [address] [place] [address] Anion gap [Moles/Vol] 14 mmol/L 7 - 17 mmol/L [facility] Chloride [Moles/Vol] 103 mmol/L 98 - 10 8 mmol/L [facility] CO2 [Moles/Vol] 22 mmol/L 21 - 31 mmol/L [facility] Creatinine [Mass/Vol] 0.80 mg/dL 0.50 - 1.20 mg/dL [facility] eGFR, CKD-EPI, Female 81 - PINF [facility] Comment on above: Reported eGFR is bas ed on the CKD-EPI 2020 equation using creatinine, age, and sex. Glucose [Mass/Vol] 134 mg/dL High 70 - 99 mg/dL [facility] Interpretation and review of laboratory results Abnormal [facility] Osmolality Calc [Osmolality] 286 [facility] Potassium [Moles/Vol] 3.7 mmol/L 3.5 - 5.0 mmol/L [facility] Sodium [Moles/Vol] 135 mmol/L 135 - 145 mmol/L [facility] Urea nitrogen [Mass/Vol] 14 mg/dL 7 - 25 mg/dL [facility] Urea nitrogen/Creatinine [Mass ratio] 18 mg/mg [facility] CT ABDOMEN/PELVIS WITH CONTR [place] 05-31-2023 CT [...] 8. Ancillary findings as described above Normal [facility] CT ANGIO BRAIN/NECKon 2023 CT ANGIO BRAIN/NECK [...] normal in caliber. 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 VERTEBRAL ARTERIES: Patent and normal [...] have reviewed and approved this report. Normal [facility] CT Abdomen and Pelvis W cont rast [...] symptoms 8. Ancillary findings as described above [facility] CT Abdomen and Pelvis W cont rast IVOrdered By: Hal Isaac on 05-31-2023 [facility] Work Phone: CT CHEST WITH CONTRASTon CT CHEST WITH CONTRAST EXAM: CT CHEST WI TH CONTRAST, 05/31/2023 04:36 AM COMPARISON: No Available Comparisons. CLINICAL INDICATIONS: Brain/BAND TOP MAKER neoplasm, staging; RELEVANT CLINICAL HISTORY: TECHNIQUE: CT [...] of metastatic disease within the chest. Normal [facility] CT Chest W contrast Christy IMPRESSION: 1. No convincing CT evidence of metastatic disease within the chest. OLOGY EXAM: CT CHEST WITH CONTRAST, 05/31/2023 04:36 AM COMPARISON: No Available Comparisons. CLINICAL INDICATIONS: Brain/BAND TOP MAKER neoplasm, staging; RELEVANT CLINICAL HISTORY: TECHNIQUE: CT [...] AM COMPARISON: No Available Comparisons. CLINICAL INDICATIONS: Brain/BAND TOP MAKER neoplasm, staging; RELEVANT CLINICAL HISTORY: TECHNIQUE: CT [...] evidence of metastatic disease within the chest. [facility] CT Chest W contrast IVOrdere d By: Alesha Gutiérrez on 05-31-2023 [facility] Work Phone: CT HEAD WITHOUT CONTRASTon 0 [...] convexity new since the prior exam. Normal [facility] CT Head WO contraston 2023 IMPRESSION: Stable [...] frontal convexity new since the prior exam. [facility] Radiology Study observation (narrative) [facility] CT Head WO contrastOrdered B y: Kiersten Watts on 05-31-2023 [facility] Work Phone: CT STROKE HEAD-STROKE ALERT ONLYon [...] have reviewed and approved this report. Normal [facility] EXTRA MICROon 05-31-2023 [facility] HEMOGLOBIN A1Con 05-31-2023 Average glucose Estimated from glycated hemoglobin (Bld) [Mass/Vol] 126 mg/dL [facility] HbA1c (Bld) [Mass fraction] 6.0 % High 4.7 - 5.6 % [facility] Interpretation and review of laboratory results Abnormal [facility] LIPID PANEL WITH REFLEX TO Sarah [place]ISH LDLon 05-31-2023 Cholesterol [Mass/Vol] 140 mg/dL NINF - 200 mg/dL [facility] Comment on above: [<200 mg/dL: Desirab le] [200-239 mg/dL: Borderline High] [>239 mg/dL: High] Cholesterol in HDL [Mass/Vol] 54 mg/dL 40 - PINF mg/dL [facility] Comment on above: [<40 mg/dL: Low (Hig h Risk)] [>59 mg/dL: High (Low Risk)] Cholesterol in LDL [Mass/Vol] 74 mg/dL 0 - 99 mg/dL [facility] Comment on above: [<100 mg/dL: Optimal ] [100-129 mg/dL: Near Optimal] [130-159 mg/dL: Borderline High] [160-189 mg/dL: High] [>189 mg/dL: Very High] Cholesterol non HDL [Mass/Vol] 86 mg/dL NINF - 130 mg/dL [facility] Cholesterol.total/Amirah sterol in HDL [Mass ratio] 2.6 {ratio} NINF - 4.5 [facility] Interpretation and review of laboratory results Normal [facility] Triglyceride [Mass/Vol] 61 mg/dL NINF - 150 mg/dL [facility] Comment on above: [<150 mg/dL: Desirab le] [150-199 mg/dL: Borderline] [200-499 mg/dL: High] [>500 mg/dL: Very High] [facility] MAGNESIUMon 05-31-2023 Magnesium [Mass/Vol] 2.1 mg/dL Normal 1.6-2.6 [facility] Comment on above: Performed By: #### P TPTT #### [facility] (DEFAULT) [address] [place] [address] Magnesium [Mass/Vol] 2.1 mg/dL 1.6 - 2 .6 mg/dL [facility] MR Brain WO and W contrast I [...] thickening and enhancement, which may be reactive. [facility] Radiology Study observation (narrative) [facility] MR Brain WO and W contrast I VOrdered By: Margarito Russ on 05-31-2023 [facility] Work Phone: MRI BRAIN WITH AND WITHOUT C [facility] 05-31-2023 MRI BRAIN WITH AND WITHOUT CONTRAST [...] and enhancement, which may be reactive. Normal [facility] No Panel Informationon 05-31 Interpretation and review of laboratory results Normal [facility] Radiology Study observation (narrative) [facility] PHOSPHATE, INORGANICon 05-31 Phosphorous 3.1 mg/dL Normal 2.2-4.6 [facility] Comment on above: Performed By: #### P TPTT #### [facility] (DEFAULT) [address] [place] [address] Phosphate [Mass/Vol] 3.1 mg/dL 2.2 - 4 .6 mg/dL [facility] PT,INR,PTTon 05-31-2023 aPTT Coag (Bld) [Time] 31.0 s Normal 24.0-34.3 [facility] Comment on above: Performed By: #### P TPTT #### [facility] (DEFAULT) [address] [place] [address] INR Coag (PPP) [Relative time] 1.0 {INR} Normal 0.9-1.1 [facility] Comment on above: Performed By: #### P TPTT #### [facility] (DEFAULT) [address] [place] [address] PT Coag (PPP) [Time] 13.5 s Normal 11.9-14.2 [facility] Comment on above: Performed By: #### P TPTT #### [facility] (DEFAULT) [address] [place] [address]159 aPTT Coag (PPP) [Time] 31.0 s [facility] INR Coag (Bld) [Relative time] 1.0 {INR} 0.9 - 1.1 [facility] Interpretation and review of laboratory results Normal [facility] PT Coag (PPP) [Time] 13.5 s [facility] TYPE AND SCREENon 05-31-2023 ABO/RH(D) TYPE Positive Normal [facility] Comment on above: Performed By: #### X M #### [facility] (DEFAULT) [address] [place] [address]462 URINALYSIS REFLEX TO CULTURE PERFORMABLEon 05-31-2023 Appearance (U) Clear Normal Clear [facility] Comment on above: Order Comment: For i ndwelling catheters, specimen collection is acceptable on catheter day 1 and 2 only. ? Performed By: #### U [id number] #### [facility] (DEFAULT) [address] [place] [address] 11917 Bacteria ABSENT Normal ABSENT [facility] Comment on above: Order Comment: For i ndwelling catheters, specimen collection is acceptable on catheter day 1 and 2 only. ? Performed By: #### U [id number] #### [facility] (DEFAULT) [address] [place] [address] 01641 Blood Urine Trace Abnormal Negative [facility] Comment on above: Order Comment: For i ndwelling catheters, specimen collection is acceptable on catheter day 1 and 2 only. ? Performed By: #### U [id number] #### [facility] (DEFAULT) [address] [place] [address]85 Color (U) Yellow Normal Yellow [facility] Comment on above: Order Comment: For i ndwelling catheters, specimen collection is acceptable on catheter day 1 and 2 only. ? Performed By: #### U [id number] #### [facility] (DEFAULT) [address] [place] [address]06 Glucose Ql (U) Negative Normal Negative [facility] Comment on above: Order Comment: For i ndwelling catheters, specimen collection is acceptable on catheter day 1 and 2 only. ? Performed By: #### U [id number] #### [facility] (DEFAULT) [address] [place] [address]24 Ketones Ql (U) Trace Abnormal Negative [facility] Comment on above: Order Comment: For i ndwelling catheters, specimen collection is acceptable on catheter day 1 and 2 only. ? Performed By: #### U [id number] #### [facility] (DEFAULT) [address] [place] [address] 76086 Leukocyte esterase Test strip Ql (U) Small Abnormal Negative [facility] Comment on above: Order Comment: For i ndwelling catheters, specimen collection is acceptable on catheter day 1 and 2 only. ? Performed By: #### U [id number] #### [facility] [address] [place] [address] 64424 Nitrites Urine Negative Normal Negative [facility] Comment on above: Order Comment: For i ndwelling catheters, specimen collection is acceptable on catheter day 1 and 2 only. ? Performed By: #### U [id number] #### [facility] (DEFAULT) [address] [place] [address] 07899 pH (U) 7.0 [pH] Normal 5.0-7.0 [facility] Comment on above: Order Comment: For i ndwelling catheters, specimen collection is acceptable on catheter day 1 and 2 only. ? Performed By: #### U [id number] #### [facility] (DEFAULT) [address] [place] [address] 65443 Protein Urine Negative Normal Negative [facility] Comment on above: Order Comment: For i ndwelling catheters, specimen collection is acceptable on catheter day 1 and 2 only. ? Performed By: #### U [id number] #### [facility] (DEFAULT) [address] [place] [address] 30126 RBC Urine 3-5 Abnormal 0-2 [facility] Comment on above: Order Comment: For i ndwelling catheters, specimen collection is acceptable on catheter day 1 and 2 only. ? Performed By: #### U [id number] #### [facility] (DEFAULT) [address] [place] [address] 33069 Specific [place] Urine > High 1.001-1.035 [facility] Comment on above: Order Comment: For i ndwelling catheters, specimen collection is acceptable on catheter day 1 and 2 only. ? Performed By: #### U [id number] #### [facility] (DEFAULT) [address] [address] Squamous/Epithelial Cells 6-10/hpf = 2+ Abnormal 0-2/hpf, 3-5/hpf = 1+ [facility] Comment on above: Order Comment: For i ndwelling catheters, specimen collection is acceptable on catheter day 1 and 2 only. ? Performed By: #### U [id number] #### [facility] (DEFAULT) [address] [place] [address]015 Urobilinogen Urine 0.2 E.U./dL Normal 0.2 E.U/d L, 1.0 E.U/dL [facility] Comment on above: Order Comment: For i ndwelling catheters, specimen collection is acceptable on catheter day 1 and 2 only. ? Performed By: #### U [id number] #### [facility] (DEFAULT) [address] [address] WBC Urine 6 - 10 Abnormal 0 - 5 [facility] Comment on above: Order Comment: For i ndwelling catheters, specimen collection is acceptable on catheter day 1 and 2 only. ? Performed By: #### U [id number] #### [facility] (DEFAULT) [address] [address] Absolute lymphocyte countOrd ered By: Oliver Briggs on 05-30-2023 Lymphocytes Auto (Unsp spec) [#/Vol] 1.24 10*3/uL 0.83-4.51 [facility] Activated partial thrombopla stin time (aPTT) in platelet poor plasma by coagulation aOrdered By: Oliver Briggs on 05-30-2023 aPTT Coag (PPP) [Time] 31.3 s 24.1-36.2 [facility] Automated lymphocyte count a s percentage of total leukocytesOrdered By: Oliver Briggs on 05-30-2023 Lymphocytes/100 WBC Auto (Unsp spec) 22.0 % 19-41 [facility] Basophil percentageOrdered B y: Oliver Briggs on 05-30-2023 Basophils/100 WBC (Bld) 0.5 % 0-1 [facility] Bilirubin [Mass/Vol] 0.40 mg/dL 0.20-1.00 [facility] Comment on above: For patients on eltr ombopag therapy, use of Dimension [place] TBIL is not recommended. Chloride [Moles/Vol] 108 mmol/L 98-107 [facility] Eosinophils/100 WBC (Bld) 1.2 % 0-5 [facility] Glucose [Mass/Vol] 102 mg/dL 74-106 [facility] Comment on above: Fasting Glucose resu lt from 100 to 125 mg/dL suggests IMPAIRED HOMEOSTASIS per A.D.A. criteria. Hemoglobin (Bld) [Mass/Vol] 13.4 g/dL 12.0-15.0 [facility] Monocytes/100 WBC (Bld) 8.9 % 0-10 [facility] Neutrophils (Bld) [#/Vol] 3.8 10*3/uL 2.0-7.7 [facility] Neutrophils/100 WBC (Bld) 67.0 % 47-70 [facility] Potassium [Moles/Vol] 3.6 mmol/L 3.5-5.1 [facility] Protein [Mass/Vol] 8.1 g/dL 6.4-8.2 [facility] Sodium [Moles/Vol] 138 mmol/L 136-145 [facility] WBC (Bld) [#/Vol] 5.6 10*3/uL 4.4-11.0 [facility] Basophil percentageOrdered B y: ED PROVIDER on 05-30-2023 Basophil percentage 0 SEEN /hpf 0-5 [facility] Bilirubin Test strip Ql (U)O rdered By: ED PROVIDER on 05-30-2023 Bilirubin Ql (U) Negative Negative [facility] CALCIUMon 05-30-2023 Calcium [Mass/Vol] 8.5 mg/dL Low 8.6-10.5 [facility] Comment on above: Performed By: #### T YPEC #### [facility] (DEFAULT) [address] [place] [address] Calcium [Mass/Vol] 8.5 mg/dL Low 8.6 - 10. 5 mg/dL [facility] Interpretation and review of laboratory results Abnormal [facility] CBC AND ELECTRONIC DIFFon Abs Baso Auto < Normal 0.00-0.15 [facility] Comment on above: Performed By: #### L [id number], A1CB #### [facility] (DEFAULT) [address] [place] [address]39 Basophils/100 WBC (Bld) 0.3 % Normal [facility] Comment on above: Performed By: #### L AB980, A1CB #### [facility] (DEFAULT) [address] [place] [address] 94003 DIFF STATUS Electronic Differential Normal [facility] Comment on above: Performed By: #### L AB980, A1CB #### [facility] (DEFAULT) [address] [place] [address] 58213 Eosinophils (Bld) [#/Vol] 0.07 10*3/uL Normal 0.00-0.42 [facility] Comment on above: Performed By: #### L AB980, A1CB #### [facility] (DEFAULT) [address] [place] [address] 41858 Eosinophils/100 WBC (Bld) 1.1 % Normal [facility] Comment on above: Performed By: #### L AB980, A1CB #### [facility] (DEFAULT) [address] [place] [address] 17856 Hematocrit (Bld) [Volume fraction] 38.6 % Normal 34.9-44.3 [facility] Comment on above: Performed By: #### L AB980, A1CB #### [facility] (DEFAULT) [address] [place] [address] 52869 Hemoglobin (Bld) [Mass/Vol] 12.6 g/dL Normal 11.4-15.2 [facility] Comment on above: Performed By: #### L AB980, A1CB #### [facility] (DEFAULT) [address] [place] [address] 45459 Immature Grans % 0.3 % Normal [facility] Comment on above: Performed By: #### L AB980, A1CB #### [facility] (DEFAULT) [address] [address] Immature Grans Absolute < Normal <=0.08 [facility] Comment on above: Performed By: #### L AB980, A1CB #### [facility] (DEFAULT) [address] [address] Lymphocytes (Bld) [#/Vol] 1.63 10*3/uL Normal 1.16-3.51 [facility] Comment on above: Performed By: #### L AB980, A1CB #### [facility] (DEFAULT) [address] [address] Lymphocytes/100 WBC (Bld) 24.9 % Normal [facility] Comment on above: Performed By: #### L AB980, A1CB #### [facility] (DEFAULT) [address] [address] MCV (RBC) [Entitic vol] 89.6 fL Normal 79.6-97.7 [facility] Comment on above: Performed By: #### L AB980, A1CB #### [facility] (DEFAULT) [address] [address] Mean Cell Hgb 29.2 pg Normal 25.9-33.9 [facility] Comment on above: Performed By: #### L AB980, A1CB #### [facility] (DEFAULT) [address] [address] Mean Cell Hgb Conc 32.6 g/dL Normal 31.4-35.9 [facility] Comment on above: Performed By: #### L AB980, A1CB #### [facility] (DEFAULT) [address] [address] Monocytes (Bld) [#/Vol] 0.65 10*3/uL Normal 0.22-0.87 [facility] Comment on above: Performed By: #### L AB980, A1CB #### [facility] (DEFAULT) [address] [place] [address]28 Monocytes/100 WBC (Bld) 9.9 % Normal [facility] Comment on above: Performed By: #### L AB980, A1CB #### [facility] (DEFAULT) [address] [place] [address]9728 Nucleated RBC 0.0 /100 WBC Normal <=0.2 [facility] Comment on above: Performed By: #### L AB980, A1CB #### [facility] (DEFAULT) [address] [place] [address]378 Platelet mean volume (Bld) [Entitic vol] 10.2 fL Normal 8.5-12.2 [facility] Comment on above: Performed By: #### L AB980, A1CB #### [facility] (DEFAULT) [address] [place] [address] 96468 Platelets (Bld) [#/Vol] 231 10*3/uL Normal 150-393 [facility] Comment on above: Performed By: #### L AB980, A1CB #### [facility] (DEFAULT) [address] [place] [address] 16478 RBC (Bld) [#/Vol] 4.31 10*6/uL Normal 3.91-5.04 [facility] Comment on above: Performed By: #### L AB980, A1CB #### [facility] (DEFAULT) [address] [place] [address] 56951 RBC Distribution 14.1 % Normal 10.8-14.9 [facility] Comment on above: Performed By: #### L AB980, A1CB #### [facility] (DEFAULT) [address] [place] [address] 38716 Segs + Bands Auto 63.5 % Normal [facility] Comment on above: Performed By: #### L AB980, A1CB #### [facility] (DEFAULT) [address] [place] [address] Segs + Bands,Absolute Auto 4.15 K/uL Normal 1.64-7.28 [facility] Comment on above: Performed By: #### L AB980, A1CB #### [facility] (DEFAULT) [address] [place] [address] WBC (Bld) [#/Vol] 6.54 10*3/uL Normal 3.99-11.19 [facility] Comment on above: Performed By: #### L AB980, A1CB #### [facility] (DEFAULT) [address] [place] [address] Basophils (Bld) [#/Vol] K/uL 0.00 - 0.15 K/uL [facility] Basophils/100 WBC (Bld) 0.3 % [facility] Differential cell count method Nom (Bld) Electronic Differential [facility] Eosinophils (Bld) [#/Vol] 0.07 10*3/uL 0.00 - 0.42 K/uL [facility] Eosinophils/100 WBC (Bld) 1.1 % [facility] Erythrocyte distribution width (RBC) [Ratio] 14.1 % 10.8 - 14.9 % [facility] Hematocrit (Bld) [Volume fraction] 38.6 % 34.9 - 44.3 % [facility] Hemoglobin (Bld) [Mass/Vol] 12.6 g/dL 11.4 - 15.2 g/dL [facility] Immature granulocytes (Bld) [#/Vol] K/uL NINF - 0.08 K/uL [facility] Immature granulocytes/100 WBC (Bld) 0.3 % [facility] Lymphocytes (Bld) [#/Vol] 1.63 10*3/uL 1.16 - 3.51 K/uL [facility] Lymphocytes/100 WBC (Bld) 24.9 % [facility] MCH (RBC) [Entitic mass] 29.2 pg 25.9 - 33.9 pg [facility] MCHC (RBC) [Mass/Vol] 32.6 g/dL 31.4 - 35.9 g/dL [facility] MCV (RBC) [Entitic vol] 89.6 fL 79.6 - 97.7 fL [facility] Monocytes (Bld) [#/Vol] 0.65 10*3/uL 0.22 - 0.87 K/uL [facility] Monocytes/100 WBC (Bld) 9.9 % [facility] Neutrophils (Bld) [#/Vol] 4.15 10*3/uL 1.64 - 7.28 K/uL [facility] Nucleated RBC/100 WBC (Bld) [Ratio] 0.0 % [facility] Platelet mean volume (Bld) [Entitic vol] 10.2 fL 8.5 - 12.2 fL [facility] Platelets (Bld) [#/Vol] 231 10*3/uL 150 - 393 K /uL [facility] RBC (Bld) [#/Vol] 4.31 10*6/uL [facility] Segmented neutrophils/100 WBC (Bld) 63.5 % [facility] WBC (Bld) [#/Vol] 6.54 10*3/uL 3.99 - 11. 19 K/uL [facility] CHM 7 - EDon 05-30-2023 Anion gap [Moles/Vol] 10 mmol/L Normal 7-17 [facility] Comment on above: Performed By: #### T YPEC #### [facility] (DEFAULT) [address] [place] [address] Chloride [Moles/Vol] 105 mmol/L Normal 98-108 [facility] Comment on above: Performed By: #### T YPEC #### [facility] (DEFAULT) [address] [place] [address] CO2 [Moles/Vol] 26 mmol/L Normal 21-31 [facility] Comment on above: Performed By: #### T YPEC #### [facility] (DEFAULT) [address] [address] Creatinine [Mass/Vol] 0.80 mg/dL Normal 0.50-1.20 [facility] Comment on above: Performed By: #### T YPEC #### [facility] (DEFAULT) [address] [address] GFR/1.73 sq M.predicted among non-blacks MDRD (S/P/Bld) [Vol rate/Area] 81 mL/min/{1.73_m2} Normal >=60 [facility] Comment on above: Result Comment: Repo rted eGFR is based on the CKD-EPI 2020 equation using creatinine, age, and sex. Performed By: #### T YPEC #### [facility] (DEFAULT) [address] [address] Glucose [Mass/Vol] 96 mg/dL Normal 70-99 [facility] Comment on above: Performed By: #### T YPEC #### [facility] (DEFAULT) [address] [address] Osmolality [Osmolality] 286 mosm/kg Normal 278-305 [facility] Comment on above: Performed By: #### T YPEC #### [facility] (DEFAULT) [address] [address] Potassium [Moles/Vol] 3.7 mmol/L Normal 3.5-5.0 [facility] Comment on above: Performed By: #### T YPEC #### [facility] (DEFAULT) [address] [address] Sodium [Moles/Vol] 137 mmol/L Normal 135-145 [facility] Comment on above: Performed By: #### T YPEC #### [facility] (DEFAULT) [address] [address] Urea nitrogen [Mass/Vol] 13 mg/dL Normal 7-25 [facility] Comment on above: Performed By: #### T YPEC #### [facility] (DEFAULT) [address] [place] [address] Urea nitrogen/Creatinine [Mass ratio] 16 mg/mg Normal [facility] Comment on above: Performed By: #### T YPEC #### [facility] (DEFAULT) [address] [place] [address] Anion gap [Moles/Vol] 10 mmol/L 7 - 17 mmol/L [facility] Chloride [Moles/Vol] 105 mmol/L 98 - 10 8 mmol/L [facility] CO2 [Moles/Vol] 26 mmol/L 21 - 31 mmol/L [facility] Creatinine [Mass/Vol] 0.80 mg/dL 0.50 - 1.20 mg/dL [facility] eGFR, CKD-EPI, Female 81 - PINF [facility] Comment on above: Reported eGFR is bas ed on the CKD-EPI 2020 equation using creatinine, age, and sex. Glucose [Mass/Vol] 96 mg/dL 70 - 99 mg/dL [facility] Osmolality Calc [Osmolality] 286 [facility] Potassium [Moles/Vol] 3.7 mmol/L 3.5 - 5.0 mmol/L [facility] Sodium [Moles/Vol] 137 mmol/L 135 - 145 mmol/L [facility] Urea nitrogen [Mass/Vol] 13 mg/dL 7 - 25 mg/dL [facility] Urea nitrogen/Creatinine [Mass ratio] 16 mg/mg [facility] CT ANGIO BRAIN/NECKon 2023 IMPRESSION: 1. No [...] normal in caliber. 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 VERTEBRAL ARTERIES: Patent and normal [...] normal in caliber. 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 VERTEBRAL ARTERIES: Patent and normal [...] I have reviewed and approved this report. [facility] Radiology Study observation (narrative) [facility] CT Head limitedon 05-30-2023 IMPRESSION: [...] I have reviewed and approved this report. [facility] Radiology Study observation (narrative) [facility] CT Head limitedOrdered By: Ammon Dorantes on 05-30-2023 [facility] Work Phone: Determination of erythrocyte mean corpuscular volume (MCV)Ordered By: Oliver Briggs on 05-30-2023 MCV (RBC) [Entitic vol] 89.7 fL 81-99 [facility] Erythrocyte distribution wid th ratioOrdered By: Oliver Briggs on 05-30-2023 Erythrocyte distribution width (RBC) [Ratio] 14.2 % 11.6-14.6 [facility] Erythrocyte distribution wid th standard deviationOrdered By: Oliver Briggs on 05-30-2023 Erythrocyte distribution width (RBC) [Entitic vol] 47.1 fL 35.1-43.9 [facility] GLUCOSE POCon 05-30-2023 Glucose [Mass/Vol] 105 mg/dL High 70 - 99 mg/dL [facility] Interpretation and review of laboratory results Abnormal [facility] POC Sample Type CAPBL [facility] Test performed at address of the patient encounter. [facility] HEMOGLOBIN A1Con 05-30-2023 Glucose [Mass/Vol] 126 mg/dL Normal [facility] Comment on above: Performed By: #### L AB980, A1CB #### [facility] (DEFAULT) [address] [place] [address] Hemoglobin A1C HPLC 6.0 % High 4.7-5.6 [facility] Comment on above: Performed By: #### L AB980, A1CB #### [facility] (DEFAULT) [address] [place] [address] HEPATIC FUNCTION PANELon Albumin [Mass/Vol] 3.9 g/dL Normal 3.5-5.0 [facility] Comment on above: Performed By: #### T YPEC #### [facility] (DEFAULT) [address] [place] [address] ALP [Catalytic activity/Vol] 64 U/L Normal 32-126 [facility] Comment on above: Performed By: #### T YPEC #### [facility] (DEFAULT) [address] [place] [address] ALT [Catalytic activity/Vol] 16 U/L Normal 9-48 [facility] Comment on above: Performed By: #### T YPEC #### [facility] (DEFAULT) [address] [place] [address]8789 AST [Catalytic activity/Vol] 18 U/L Normal 10-39 [facility] Comment on above: Performed By: #### T YPEC #### [facility] (DEFAULT) [address] [place] [address]14 Bilirubin [Mass/Vol] 0.5 mg/dL Normal <1.5 [facility] Comment on above: Performed By: #### T YPEC #### [facility] (DEFAULT) [address] [place] [address]45 Bilirubin.indirect [Mass/Vol] 0.1 mg/dL Normal <0.3 [facility] Comment on above: Performed By: #### T YPEC #### [facility] (DEFAULT) [address] [place] [address] Protein [Mass/Vol] 6.4 g/dL Normal 6.4-8.3 [facility] Comment on above: Performed By: #### T YPEC #### [facility] (DEFAULT) [address] [place] [address] Albumin [Mass/Vol] 3.9 g/dL 3.5 - 5.0 g/dL [facility] ALP [Catalytic activity/Vol] 64 U/L 32 - 126 U/L [facility] ALT [Catalytic activity/Vol] 16 U/L 9 - 48 U/L [facility] AST [Catalytic activity/Vol] 18 U/L 10 - 39 U/L [facility] Bilirubin [Mass/Vol] 0.5 mg/dL NINF - 1.5 mg/dL [facility] Bilirubin.direct [Mass/Vol] 0.1 mg/dL NINF - 0.3 mg/dL [facility] Protein [Mass/Vol] 6.4 g/dL 6.4 - 8.3 g/dL [facility] HIGH SENSITIVITY TROPONIN I - SINGLE ORDERon 05-30-2023 hs-Troponin I <3 Normal <34 [facility] Comment on above: Order Comment: Acute Coronary Syndrome (ACS): Initial Evaluation and Management:[email or web address] Performed By: #### P TPTT #### [facility] (DEFAULT) [address] [place] [address] Interpretation and review of laboratory results Normal [facility] Troponin I.cardiac High sensitivity method [Mass/Vol] ng/L NINF - 34 ng/L [facility] Hematocrit Auto (Bld) [Volum e fraction]Ordered By: Oliver Briggs on 05-30-2023 Hematocrit (Bld) [Volume fraction] 41.0 % 37-47 [facility] Immature granulocytes/100 WB C Auto (Bld)Ordered By: Oliver Briggs on 05-30-2023 Immature granulocytes/100 WBC (Bld) 0.400 % 0.0-0.9 [facility] Comment on above: IG% - Immature Granu locytes (promyelocytes, myelocytes and metamyelocytes) > 1% indicates that a LEFT SHIFT is Present. International normalized rat io (INR) calculationOrdered By: Oliver Briggs on 05-30-2023 INR Coag (PPP) [Relative time] 1.0 {INR} [facility] Ketones Test strip Ql (U)Ord ered By: ED PROVIDER on 05-30-2023 Ketones Ql (U) Negative Negative [facility] LIPID PANEL WITH REFLEX TO M EASURED LDLon 05-30-2023 Calculated LDL Cholesterol 74 mg/dL Normal 0-99 [facility] Comment on above: Result Comment: [<10 0 mg/dL: Optimal] [100-129 mg/dL: Near Optimal] [130-159 mg/dL: Borderline High] [160-189 mg/dL: High] [>189 mg/dL: Very High] Performed By: #### T YPEC #### [facility] (DEFAULT) [address] [address] Cholesterol [Mass/Vol] 140 mg/dL Normal <200 [facility] Comment on above: Result Comment: [<20 0 mg/dL: Desirable] [200-239 mg/dL: Borderline High] [>239 mg/dL: High] Performed By: #### T YPEC #### [facility] (DEFAULT) [address] [place] [address] Cholesterol in HDL [Mass/Vol] 54 mg/dL Normal >=40 [facility] Comment on above: Result Comment: [<40 mg/dL: Low (High Risk)] [>59 mg/dL: High (Low Risk)] Performed By: #### T YPEC #### [facility] (DEFAULT) [address] [address] Non HDL Cholesterol 86 mg/dL Normal <130 [facility] Comment on above: Performed By: #### T YPEC #### [facility] (DEFAULT) [address] [address] Total Cholesterol/HDL Ratio 2.6 Normal <4.5 [facility] Comment on above: Performed By: #### T YPEC #### [facility] (DEFAULT) [address] [address] Triglyceride [Mass/Vol] 61 mg/dL Normal <150 [facility] Comment on above: Result Comment: [<15 0 mg/dL: Desirable] [150-199 mg/dL: Borderline] [200-499 mg/dL: High] [>500 mg/dL: Very High] Performed By: #### T YPEC #### [facility] (DEFAULT) [address] [address] Laboratory - Chemistry and C hemistry - challengeOrdered By: Oliver Briggs on 05-30-2023 Albumin/Globulin [Mass ratio] 1.0 {ratio} 0.9-2.4 [facility] ALP [Catalytic activity/Vol] 86 U/L 45-117 [facility] ALT [Catalytic activity/Vol] 29 U/L 13-56 [facility] CO2 [Moles/Vol] 29.0 mmol/L 21.0-32.0 [facility] Globulin (S) [Mass/Vol] 4.0 g/dL 2.2-4.2 [facility] Urea nitrogen/Creatinine [Mass ratio] 14.6 mg/mg 10-20 [facility] Laboratory - Chemistry and C hemistry - challengeon 05-30-2023 Bilirubin Ql (U) Moderate (2+) [facility] Glucose Ql (U) Negative [facility] Ketones Ql (U) Negative [facility] pH (U) 6.0 [pH] [facility] Specific gravity (U) [Rel density] 1.015 [facility] Urobilinogen (U) [Mass/Vol] Negative [facility] Laboratory - CoagulationOrde red By: Oliver Briggs on 05-30-2023 PT Coag (PPP) [Time] 13.0 s 11.7-14.9 [facility] Laboratory - Hematology and Cell countsOrdered By: Oliver Briggs on 05-30-2023 MCH (RBC) [Entitic mass] 29.3 pg 27.0-32.0 [facility] MCHC (RBC) [Mass/Vol] 32.7 g/dL 32-36 [facility] Nucleated RBC/100 WBC (Bld) [Ratio] 0 % 0-5 [facility] Platelets (Bld) [#/Vol] 250 10*3/uL 150-450 [facility] Laboratory - Hematology and Cell countson 05-30-2023 Hemoglobin Ql (U) Small [facility] Laboratory - Specimen inform ationon 05-30-2023 Clarity (U) Slightly Hazy [facility] Color (U) YELLOW [facility] Laboratory - Urinalysison Nitrite Ql (U) Negative [facility] Protein Ql (U) Negative [facility] MAGNESIUMon 05-30-2023 Magnesium [Mass/Vol] 2.1 mg/dL Normal 1.6-2.6 [facility] Comment on above: Performed By: #### T YPEC #### [facility] (DEFAULT) [address] [address] Magnesium [Mass/Vol] 2.1 mg/dL 1.6 - 2 .6 mg/dL [facility] Mucus LM Ql (Urine sed)Order ed By: ED PROVIDER on 05-30-2023 Mucus Ql (Urine sed) 0 SEEN /hpf [facility] Nitrite Test strip Ql (U)Ord ered By: ED PROVIDER on 05-30-2023 Nitrite Ql (U) Negative Negative [facility] No Panel Informationon 05-30 Interpretation and review of laboratory results Normal [facility] Urine Leukocytes Negatve [facility] Urine Non-Hemolyzed Blood [facility] No Panel InformationOrdered By: Oliver Briggs on 05-30-2023 Estimated Creatinine Clearance Calc 72.93 ml/min [facility] Estimated GFR (MDRD) Amer 82 mL/min >60 [facility] Comment on above: GFR Calc Estimated GFR (MDRD) Non-Af Amer 67 mL/min >60 [facility] Comment on above: Non- GFR Calc No Panel InformationOrdered By: ED PROVIDER on 05-30-2023 Urine RBC 0-5 SEEN /hpf 0-5 [facility] PHOSPHATE, INORGANICon 05-30 Phosphorous 3.5 mg/dL Normal 2.2-4.6 [facility] Comment on above: Performed By: #### T YPEC #### [facility] (DEFAULT) [address] [place] [address] Phosphate [Mass/Vol] 3.5 mg/dL 2.2 - 4 .6 mg/dL [facility] PTINR-STROKEon 05-30-2023 INR Coag (PPP) [Relative time] 1.1 {INR} Normal 0.9-1.1 [facility] Comment on above: Performed By: #### P TPTT #### [facility] (DEFAULT) [address] [place] [address] PT Coag (PPP) [Time] 13.6 s Normal 11.9-14.2 [facility] Comment on above: Performed By: #### P TPTT #### [facility] (DEFAULT) [address] [place] [address] INR Coag (Bld) [Relative time] 1.1 {INR} 0.9 - 1.1 [facility] Interpretation and review of laboratory results Normal [facility] PT Coag (PPP) [Time] 13.6 s [facility] PTTon 05-30-2023 aPTT Coag (Bld) [Time] 30.9 s Normal 24.0-34.3 [facility] Comment on above: Performed By: #### P TPTT #### [facility] (DEFAULT) [address] [place] [address] aPTT Coag (PPP) [Time] 30.9 s [facility] Interpretation and review of laboratory results Normal [facility] Platelet mean volume Shawn-Ec ker (Bld) [Entitic vol]Ordered By: Oliver Briggs on 05-30-2023 Platelet mean volume (Bld) [Entitic vol] 10.5 fL 6.2-12.0 [facility] Protein Test strip Ql (U)Ord ered By: ED PROVIDER on 05-30-2023 Protein Ql (U) Negative Negative [facility] RBC Auto (Bld) [#/Vol]Ordere d By: Oliver Briggs on 05-30-2023 RBC (Bld) [#/Vol] 4.57 10*6/uL 4.2-5.4 [facility] Serum or plasma calcium tim urement (mass/volume)Ordered By: Oliver Briggs on 05-30-2023 Calcium [Mass/Vol] 9.9 mg/dL 8.5-10.1 [facility] Serum or plasma creatinine m easurement (mass/volume)Ordered By: Oliver Briggs on 05-30-2023 Creatinine [Mass/Vol] 0.89 mg/dL 0.55-1.02 [facility] Comment on above: The validity of the calculated GFR & GFRAA in patients over 70 years has not been determined. Clinical correlation is essential. Serum or plasma urea nitroge n measurement (mass/volume)Ordered By: Oliver Briggs on 05-30-2023 Urea nitrogen [Mass/Vol] 13 mg/dL 7-18 [facility] Squamous epithelial cells de tection in urine sediment by light microscopyOrdered By: ED PROVIDER on 05-30-2023 Epithelial cells.squamous LM Ql (Urine sed) 0-5 SEEN /hpf 5-10 [facility] TYPE AND SCREENon 05-30-2023 ABO/RH(D) TYPE Positive [facility] Thin prep Papanicolaou smear with manual screeningOrdered By: Oliver Briggs on 05-30-2023 Thin prep Papanicolaou smear with manual screening 4.1 g/dL 3.2-5.0 [facility] Thin prep Papanicolaou smear with manual screening 19 U/L 15-37 [facility] Thin prep Papanicolaou smear with manual screening 1 5-15 [facility] URINALYSIS REFLEX TO CULTURE PERFORMABLEon 05-30-2023 Appearance (U) Clear Clear [facility] Bacteria LM Ql (Urine sed) ABSENT ABSENT [facility] Color (U) Yellow Yellow [facility] Epithelial cells.squamous LM Ql (Urine sed) 6-10/hpf = 2+ Abnormal 0-2/hpf, 3-5/hpf = 1+ [facility] Glucose Test strip (U) [Mass/Vol] Negative Negative [facility] Interpretation and review of laboratory results Abnormal [facility] Ketones (U) [Mass/Vol] Trace Abnormal Negative [facility] Leukocyte esterase Test strip Ql (U) Small Abnormal Negative [facility] Nitrite Ql (U) Negative Negative [facility] pH (U) 7.0 [pH] 5.0 - 7.0 [facility] Protein (U) [Mass/Vol] Negative Negative [facility] RBC (U) [#/Vol] Trace Abnormal [facility] RBC LM.HPF (Urine sed) [#/Area] 3-5 Abnormal [facility] Specific gravity (U) [Rel density] High 1.001 - 1.035 [facility] Urobilinogen (U) [Mass/Vol] 0.2 E.U./dL 0.2 E.U/dL, 1.0 E.U/dL [facility] WBC LM.HPF (Urine sed) [#/Area] 6 - 10 Abnormal [facility] Urine blood detectionOrdered By: ED PROVIDER on 05-30-2023 RBC Ql (U) 10 /ul Negative [facility] Urine clarityOrdered By: ED PROVIDER on 05-30-2023 Clarity (U) Sl. Cloudy Clear [facility] Urine color determinationOrd ered By: ED PROVIDER on 05-30-2023 Color (U) Yellow Yellow [facility] Urine glucose detectionOrder ed By: ED PROVIDER on 05-30-2023 Glucose Ql (U) Normal mg/dl Normal [facility] Urine leukocyte esterase det ection by dipstickOrdered By: ED PROVIDER on 05-30-2023 Leukocyte esterase Test strip Ql (U) Negative Negative [facility] Urine pHOrdered By: ED PROVI SMITH on 05-30-2023 pH (U) 6.0 [pH] 5.0 - 8.0 [facility] Urine sediment bacteria coun t by microscopy (number/high power field)Ordered By: ED PROVIDER on 05-30-2023 Bacteria LM.HPF (Urine sed) [#/Area] 0 /[HPF] None Seen [facility] Urine specific gravity measu rementOrdered By: ED PROVIDER on 05-30-2023 Specific gravity (U) [Rel density] 1.010 1.002-1.030 [facility] Urine urobilinogen measureme ntOrdered By: ED PROVIDER on 05-30-2023 Urobilinogen Ql (U) Normal mg/dl Normal [facility] PT Progress Noteon PT Progress Note Therapy Diagnosis Assessed Lumbosacral [...] from Radha Razo PT, DPT to Aleida Yamilethjerryelizabeth PT effective as of 08/25/22 Onset Date: [...] abd: 4/5-->4+/5-->4 (more content not included)... Normal [facility] Therapy Re-eval Noteon 11-17 Therapy Re-eval Note [...] transferred from Radha Razo PT, DPT to Aelida Metzger PT effective as of 08/25/22 Onset [...] 65%-->75%-->90%-->90 % (more content not included)... Normal [facility] Therapy Re-eval Noteon 10-20 Therapy Re-eval Note [...] rot: 65%-->75%-->90% (more content not included)... Normal [facility] PT [...] code time is 38 minutes. Therapeutic exercise (57351): timed minutes 28, units 2 . Nustep 5' lv 2.0 Slantboard 2x1' Hooklying hip abduction green band 2 x 10 (P reps) Hooklying hip adduction with playground ball with 5 second hold 2 x 10 Bridges 2 x 10 (small range) Bridge w/ hip ad (more content not included)... Normal [facility] PT Progress Noteon 3 PT Progress Note [...] code time is 38 minutes. Therapeutic exercise (78276): timed minutes 28, units 2 . Nustep 5' lv 2.0 Slantboard 2x1' Hooklying hip abduction green band 2 x 10 (P reps) Hooklying hip adduction with playground ball (more content not included)... Normal [facility] PT [...] PT effective as of 08/25/22 Onset Date: 03/ 22/ 2023 Medicare Certification Period: Beginnin2022 Endin2022 Subjective Patient [...] transferred from Radha Razo PT, DPT to lAeida Metzger PT effective as of 08/25/22 Onset [...] included)... Normal [facility] PT Progress Noteon PT Progress Note Therapy Diagnosis Assessed Low [...] code time is 43 minutes. Therapeutic exercise (78038): timed minutes 43, units 3 . Nustep [...] code time is 34 minutes. Therapeutic exercise (60696): timed minutes 34, units 3 . Nustep 5' lv 2.0 Slantboard 2x1' (N) x10 LTR each direction 5 hold Supine piriformis stretch figure 4 3x20 second each LE (X) x (more content not included)... Normal [facility] [...] ended a (more content not included)... Normal [facility] PT Progress Noteon PT Progress Note Therapy Diagnosis Assessed Low [...] plate 04/29 (more content not included)... Normal [facility] PT [...] code time is 33 minutes. Therapeutic exercise (56316): timed minutes 33, units 2 . Nustep [...] was a 5-6/10 before treatment and a 4-510 after treatment. Precautions: Fall Risk: low PMHx: thyroid disorder, L wrist plate 04/29/2020,. Treatment Time in clinic started at 2:00 pm Time in clinic ended at 2:45 pm Total time in clinic is 45 minutes. Total timed code time is 38 minutes. Therapeutic exercise (75344): timed minutes 38, units 3 . Nustep 5' (N) x10 LTR each direction Supine piriformis stretch figure 4 3x20 second each LE x10 supine T (more content not included)... Normal [facility] PT Initial Evaluationon 04-2 PT Initial Evaluation Therapy Diagnosis Assessed Low [...] you for this referral and please call [phone] with any questions or concerns. Clinical Presentation: [...] Screen: D (more content not included)... Normal [facility] CBC, EDIF, PLATELETon 2022 ABSOLUTE BASOPHIL COUNT 0.0 10*3/uL 0.0 - 0.2 10*3/uL [facility] Basophils/100 WBC (Bld) 0.1 % 0.0 - 2.0 % [facility] Differential cell count method Nom (Bld) AUTO DIFF % [facility] Eosinophils (Bld) [#/Vol] 0.0 10*3/uL 0.0 - 0.7 10*3/uL [facility] Eosinophils/100 WBC (Bld) 0.7 % 0.0 - 11.0 % [facility] Erythrocyte distribution width (RBC) [Ratio] 14.7 % High 11.5 - 14.5 % [facility] Hematocrit (Bld) [Volume fraction] 40.8 % 36.0 - 48.0 % [facility] Hemoglobin (Bld) [Mass/Vol] 13.4 g/dL [facility] Interpretation and review of laboratory results Abnormal [facility] Lymphocytes (Bld) [#/Vol] 0.6 10*3/uL Low 1.2 - 3.4 10*3/uL [facility] Lymphocytes/100 WBC (Bld) 10.2 % Low 20.0 - 55.0 % [facility] MCH (RBC) [Entitic mass] 29.2 pg 26.0 - 35.0 PG [facility] MCHC (RBC) [Mass/Vol] 32.7 g/dL [facility] MCV (RBC) [Entitic vol] 89.2 fL [facility] Monocytes (Bld) [#/Vol] 0.3 10*3/uL 0.0 - 0.7 10*3/uL [facility] Monocytes/100 WBC (Bld) 5.2 % 0.0 - 10.0 % [facility] Neutrophils (Bld) [#/Vol] 4.6 10*3/uL 1.4 - 6.5 10*3/uL [facility] Neutrophils/100 WBC (Bld) 83.8 % High 37.0 - 75.0 % [facility] Platelet mean volume (Bld) [Entitic vol] 8.6 fL [facility] Platelets (Bld) [#/Vol] 182 10*3/uL 130. 0 - 400.0 10*3/uL [facility] RBC (Bld) [#/Vol] 4.58 10*6/uL 4.0 - 5.4 10*6/uL [facility] WBC (Bld) [#/Vol] 5.5 10*3/uL 3.6 - 11.0 10*3/uL [facility] COMPREHENSIVE METABOLIC PANE Juan 06-15-2022 Albumin [Mass/Vol] 4.1 G/dl 3.5 - 5.0 G/dl [facility] Albumin/Globulin [Mass ratio] 1.2 {ratio} Low [facility] ALP [Catalytic activity/Vol] 67 U/L [facility] ALT [Catalytic activity/Vol] 27 U/L [facility] AST [Catalytic activity/Vol] 27 U/L [facility] Bilirubin [Mass/Vol] 0.8 mg/dL [facility] Calcium [Mass/Vol] 8.8 mg/dL [facility] Chloride [Moles/Vol] 103 mmol/L [facility] CO2 [Moles/Vol] 25 mmol/L [facility] Creatinine [Mass/Vol] 0.86 mg/dL [facility] GFR COMMENT Average GFR for 60-69 years old = 85. [facility] Comment on above: Chronic Kidney disea se, GFR = <60. Kidney failure, GFR = <15. The GFR estimate is not adjusted for extreme body surface area or acute process, nor has it been validated for women or ethnic groups other than and . GFR/1.73 sq M.predicted among blacks MDRD (S/P/Bld) [Vol rate/Area] 85 mL/min/{1.73_m2} ml/min/1.73sq. m [facility] GFR/1.73 sq M.predicted among non-blacks MDRD (S/P/Bld) [Vol rate/Area] 70 mL/min/{1.73_m2} ml/min/1.73sq. m [facility] Glucose post fast [Mass/Vol] 112 mg/dL High [facility] Comment on above: NORMAL <100 mg/dL PREDIABETES 101-126 mg/dL DIABETES 126 mg/dL or higher Interpretation and review of laboratory results Abnormal [facility] (P) Potassium [Moles/Vol] 3.7 mmol/L [employer] Protein [Mass/Vol] 7.5 g/dL [facility] (P) Sodium [Moles/Vol] 136 mmol/L [facility] [employer] Urea nitrogen [Mass/Vol] 14 mg/dL [facility] CT Abdomen and Pelvis W radha Harrison [...] a nonspecific finding. 2. Diverticulosis without diverticulitis. [facility] Radiology Study observation (narrative) [facility] CT Abdomen and Pelvis W cont rast IVOrdered By: Felicia Jaeger on 06-15-2022 [facility] Work Phone: LACTATE, BLOODon 06-15-2022 Lactate [Moles/Vol] 1.0 mmol/L 0.7 - 2. 0 mmol/L [facility] LIPASEon 06-15-2022 Lipase [Catalytic activity/Vol] 37 U/L 23 - 300 U/L [facility] MAGNESIUMon 06-15-2022 Magnesium [Mass/Vol] 2.0 mg/dL [facility] No Panel Informationon 06-15 [facility] RAPID STREP A ANTIGENon S. pyogenes Ag Ql (Throat) Negative NEGATIVE [facility] Comment on above: STREP CULTURE TO FOL LOW TESTING PERFORMED BY ANGEL [facility] TROPONIN I, HIGH SENSITIVITY on 06-15-2022 TROPONIN I, HIGH SENSITIVITY <2 0 - 12 pg/mL [facility] Comment on above: Indeterminant: >12 to 100 pg/mL female >20 to 100 pg/mL male Indicative of myocardial injury. Serial sampling is recommended, a change of greater than or equal to 20 pg/mL is indicative of acute coronary syndrome. [facility] URINALYSIS, MACROon 06-15-19 23 Bilirubin Ql (U) Negative NEGATIVE [facility] Clarity (U) CLEAR CLEAR [facility] Color (U) YELLOW YELLOW [facility] Glucose Test strip (U) [Mass/Vol] Negative NEGATIVE mg/dl [facility] Hemoglobin Ql (U) TRACE-INTACT Abnormal NEGATIVE [facility] Interpretation and review of laboratory results Abnormal [facility] Ketones (U) [Mass/Vol] Negative NEGATIVE mg/d l [facility] Leukocyte esterase Test strip Ql (U) SMALL Abnormal NEGATIVE [facility] Nitrite Ql (U) Negative NEGATIVE [facility] pH (U) 5.5 [pH] 5.0 - 7.0 [facility] Protein Ql (U) Negative NEGATIVE mg/dl [facility] Specific gravity (U) [Rel density] >1.030 High 1.010 - 1.025 [facility] Urobilinogen (U) [Mass/Vol] 0.2 mg/dL [facility] URINE MICROSCOPICon 06-15-19 23 Bacteria LM.HPF (Urine sed) [#/Area] Negative NEGATIVE [facility] Casts LM.LPF (Urine sed) [#/Area] NONE NONE /LPF [facility] Crystals LM Nom (Urine sed) NONE NONE [facility] Epithelial cells LM Ql (Urine sed) 1 TO 5 /HPF [facility] Mucus Ql (Urine sed) Negative NEGATIVE [facility] RBC LM.HPF (Urine sed) [#/Area] Negative NEGATIVE /HPF [facility] Urine sediment comments LM Daniel (Urine sed) CULTURE CRITERIA NOT MET, NO CULTURE PERFORMED. [facility] WBC LM.HPF (Urine sed) [#/Area] 1 TO 5 NEGATIVE /HPF [facility] Therapy Communicationon 05-07 Therapy Communication Message KAIA HALEY was (D/C)- last seen: 03/27/22. Pt self-discharged from skilled Physical Therapy at this time. Pt was not able to be fully re-assessed due to self-discharging and not attending final re-evaluation appointment. Refer back in future if necessary. Signatures Electronically signed by : Aleida Metzger, PT; May 16 2022 12:48PM EST (Author) [facility] Communicationon - Therapy Communication Message KAIA HALEY no showed today . Signatures Electronically signed by : Miracle Schmitz PTA; Apr 05 2022 9:39AM EST (Author) [facility] Communicationon - Therapy Communication Message KAIA HALEY canceled today [...] code time is 45 minutes. Therapeutic exercise (05395): timed minutes 29, units 2 . Nustep 5' Lv 2 Piriformis 5x10 holds B/L FIgure 4 w/ twist for QL 5x10 holds B/L Bridge w/ march 2 x 10 (P reps) Supine March + green band 2 x 10 3 hold (N) S/L Hip ABD AND Ext combo w/ band (N) S/L Clam shell 2 x 10 (N) S/L Reverse clamshel (A) Standing hip ABD 2 x 10 Standing hip Ext 2 x 10 Heel raises 2 x 10 Mini squats 2 x 10 Hip IR [place] 2 x 10 Side steps 2 x 10 Hip Hikes 2 x 10 D/C to HEP: Hip Flexor stretch 10 x 10 Standing IT/QL stretch 10 x 10 SKTC 2 x 10 Glute squeezes 2 x 10 Supine hip ADD w/ playball TrA 2 x 10 Posterior pelvic tilt 2 x 10 LTR 2 x 10 . Manual Therapy (08338): timed minutes 10, units 1 . STM to Left hip flexor, TFL, Glutes Max and Glutes Med. Aquatic Therapy (97956):. All exercises preformed in 70-75% unloading unless [...] clamshell 3. Hip hikes 1. Bridges with 2. S/L hip abd + ext Access Code: [email or web address] URL: [email or web address] Date: 02/20/2022 Prepared by: Aleida Metzger Exercises Supine Figure 4 Piriformis Stretch - 1 x daily - 7 x weekly - 1 sets - 5 (more content not included)... [facility] PT Progress Noteon 2 PT Progress Note [...] number: 13 POC: 04/19 Evaluating therapist Miguel Angle Horan PT. M47.36; M48.061; M43.16 Subjective Patient reports:. Patient reports that the back is feeling ok today. States that she had to drive from [place] today but had her heating pad. States [...] code time is 39 minutes. Therapeutic exercise (77842): timed minutes 29, units 2 . Nustep 5' Lv 2 Piriformis 5x10 holds B/L FIgure 4 w/ twist for QL 5x10 holds B/L (N) Bridge w/ july (N) S/L Hip ABD AND Ext combo w/ band (N) Standing hip ABD 2 x 10 Standing hip Ext 2 x 10 Heel raises 2 x 10 Mini squats 2 x 10 Hip IR [place] 2 x 10 Side steps 2 x 10 Hip Hikes 2 x 10 (N) D/C to HEP: Hip Flexor stretch 10 x 10 Standing IT/QL stretch 10 x 10 SKTC 2 x 10 Glute squeezes 2 x 10 Supine hip ADD w/ playball TrA 2 x 10 Posterior pelvic tilt 2 x 10 LTR 2 x 10 . Manual Therapy (48285): timed minutes 10, units 1 . STM to Left hip flexor, TFL, Glutes Max and Glutes Med. Aquatic Therapy (48594):. All exercises preformed in 70-75% unloading unless [...] given are listed below: 1. Bridges with 2. S/L hip abd + ext Access Code: [email or web address] URL: [email or web address]/ Date: 02/20/2022 Prepared by: Aleida Metzger Exercises [...] Ball on (more content not included)... [facility] PT [...] Subjective Patient reports:. Pt notes she played Webbynode ball and tolerated well. Pt notes her HEP is going. Has not been getting as frequent pain into LLE. Pt notes there was only one day in [place] where she wished she had a heating [...] code time is 40 minutes. Therapeutic exercise (62411): timed minutes 26, units 2 . Nustep 5' Lv 2 (P lv) Pt re-assessed for updated POC, updated/reviewed HEP, and discussed continued symptom management x 20' Piriformis 5x10 holds B/L FIgure 4 w/ twist for QL 5x10 holds B/L (N) No Time/Resume next: Bridge / july (A) S/L Hip ABD AND Ext combo w/ band (A) Standing hip ABD 2 x 10 Standing hip Ext 2 x 10 Heel raises 2 x 10 Mini squats 2 x 10 Hip IR [place] 2 x 10 Side steps 2 x 10 D/C to HEP: Hip Flexor stretch 10 x 10 Standing IT/QL stretch 10 x 10 SKTC 2 x 10 Glute squeezes 2 x 10 Supine hi (more content not included)... [facility] Re-eval Noteon 03-20 Therapy Re-eval Note [...] Subjective Patient reports:. Pt notes she played Webbynode ball and tolerated well. Pt notes her HEP is going. Has not been getting as frequent pain into LLE. Pt notes there was only one day in [place] where she wished she had a heating [...] code time is 40 minutes. Therapeutic exercise (42288): timed minutes 26, units 2 . Nustep [...] Mini squats 2 x 10 Hip IR [place] 2 x 10 Side steps 2 x 10 D/C to HEP: Hip Flexor stretch 10 x 10 Standing IT/QL stretch 10 x 10 SKTC 2 x 10 Glute squeezes 2 x 10 (more content not included)... [facility] PT [...] code time is 44 minutes. Therapeutic exercise (37293): timed minutes 44, units 3 . Nustep [...] 10 LTR 2 x 10 Hip IR [place] 2 x 10 . Manual Therapy (60217):. STM to Left hip flexor, TFL, Glutes Max and Glutes Med (X). Aquatic Therapy (11059):. All exercises preformed in 70-75% unloading unless [...] exit 3? . Provided today:. Access Code: [email or web address] URL: [email or web address]/ Date: 02/20/2022 Prepared by: Aleida Metzger Exercises [...] and technique. Exercises given are listed below: [employer] Access Code [email or web address] Heel raises 2 x 10 (N) Glute [...] code time is 44 minutes. Therapeutic exercise (32933): timed minutes 44, units 3 . Nustep [...] 10 LTR 2 x 10 Hip IR [place] 2 x 10 . Manual Therapy (02344):. STM to Left hip flexor, TFL, Glutes Max and Glutes Med (X). Aquatic Therapy (37659):. All exercises preformed in 70-75% unloading unless [...] exit 3? . Provided today:. Access Code: [email or web address] URL: [email or web address]/ Date: 02/20/2022 Prepared by: Aleida Metzger Exercises [...] and technique. Exercises given are listed below: [employer] Access Code [email or web address] Heel raises 2 x 10 (N) Glute squeezes 2 x 10 Side steps 2 x 10 (N) Supine hip ADD w/ playball TrA 2 x 1 (more content not included)... [facility] [...] code time is 44 minutes. Therapeutic exercise (60844): timed minutes 44, units 3 . Nustep [...] 10 LTR 2 x 10 Hip IR [place] 2 x 10 . Manual Therapy (71044):. STM to Left hip flexor, TFL, Glutes Max and Glutes Med (X). Aquatic Therapy (52447):. All exercises preformed in 70-75% unloading unless [...] exit 3? . Provided today:. Access Code: [email or web address] URL: [email or web address]/ Date: 02/20/2022 Prepared by: Aleida Metzger Exercises [...] below: ME (more content not included)... [facility] PT Progress Noteon 2 PT Progress Note [...] code time is 44 minutes. Therapeutic exercise (69097): timed minutes 44, units 3 . Nustep [...] (N) LTR 2 x 10 Hip IR [place] 2 x 10 (N) . Manual Therapy (59202): timed minutes , units . STM to Left hip flexor, TFL, Glutes Max and Glutes Med (X). Aquatic Therapy (11506):. All exercises preformed in 70-75% unloading unless [...] exit 3? . Provided today:. Access Code: [email or web address] URL: [email or web address]/ Date: 02/20/2022 Prepared by: Aleida Metzger Exercises [...] code time is 40 minutes. Therapeutic exercise (49630): timed minutes 25, units 2 . Pt re-assessed for updated POC, updated/reviewed HEP, and discussed continued symptom management Piriformis 2x10 holds B/L (N) Hip Flexor stretch (A) Standing IT/QL stretch (A) SKTC (A) Not 02/20: Nustep 5' Standing hip ABD 2 x 10 Standi (more content not included)... [facility] Re-eval Noteon 02-20 Therapy Re-eval Note [...] 8 POC: 12/18 Evaluating therapist Miguel Angel Luecht PT. M47.36; M48.061; M43.16 Subjective Patient reports:. [...] code time is 40 minutes. Therapeutic exercise (73369): timed minutes 25, units 2 . Pt [...] 4 weeks, for 8 visits . x3 [place]; final 5 visits at [place]. Potential to achieve rehab goals is fair: [...] code time is 41 minutes. Therapeutic exercise (61308): timed minutes 41, units 3 . Nustep [...] (N) LTR 2 x 10 Hip IR [place] 2 x 10 (N) . Aquatic Therapy (47401):. All exercises preformed in 70-75% unloading unless [...] and technique. Exercises given are listed below: [employer] Access Code [email or web address] Heel raises 2 x 10 (N) Glute squeezes 2 x 10 Side steps 2 x 10 (N) Supine hip ADD w/ playball TrA 2 x 10 (N) Posterior pelvic tilt 2 x 10 (N). 'Scores and Scales' Signatures Electronically signed by : Miracle Schmitz, JANITORIAL MAINTENANCE WORKER; Feb 13 2022 2:03PM EST (Author) Electronically signed by : Aleida Metzger, PT; Feb 20 2022 9:20AM EST [facility] PT Progress Noteon 2 PT [...] . x3 pool; final 5 visits at [place]. Potential to achieve rehab goals is fair: [...] code time is 40 minutes. Therapeutic exercise (42385): timed minutes 40, units 3 . Nustep 5' (N) Heel raises 2 x 10 (N) Glute squeezes 2 x 10 Side steps 2 x 10 (N) Supine hip ADD w/ playball TrA 2 x 10 (N) Posterior pelvic tilt 2 x 10 (N) LTR 2 x 10 (N) Hip IR (A) . Aquatic Therapy (48923):. All exercises preformed in 70-75% unloading unless [...] and technique. Exercises given are listed below: [employer] Access Code [email or web address] Heel raises 2 x 10 (N) Glute squeezes 2 x 10 Side steps 2 x 10 (N) Supine hip ADD w/ playball TrA 2 x 10 (N) Posterior pelvic tilt 2 x 10 (N). 'Scores and Scales' Signatures Electronically signed by : Miracle Schmitz JANITORIAL MAINTENANCE WORKER; Feb 10 2022 9:29AM EST (Author) Electronically signed by : Aleida Metzger PT; Feb 10 2022 6:16PM EST [facility] Progress Noteon 2 PT Progress Note [...] . x3 pool; final 5 visits at [place]. Potential to achieve rehab goals is fair: [...] back pain. Patient to be transferred to [place] for out patient therapy. Precautions: none. Fall Risk: none Treatment Time in clinic started at 10:00 am Time in clinic ended at 10:45 am Total time in clinic is 45 minutes. Total timed code time is 41 minutes. Aquatic Therapy (10946): timed minutes 41, units 3 . All [...] Signatures Electronically signed by : Mel Jimenez JANITORIAL MAINTENANCE WORKER; Feb 08 2022 10:45AM EST (Author) Electronically signed by : Saturnino Horan PT; Feb 08 2022 11:15AM EST [facility] Progress Noteon 2 PT Progress Note [...] . x3 pool; final 5 visits at [place]. Potential to achieve rehab goals is fair: [...] Patient reports:. Patient reports back pain of /10, no LE Sx. States that yesterday she [...] code time is 41 minutes. Aquatic Therapy (55491): timed minutes 43, units 3 . All [...] Scales' Signatures Electronically signed by : Miracle Moreno, JANITORIAL MAINTENANCE WORKER; Feb 02 2022 9:57AM EST (Author) Electronically signed by : Saturnino Horan, PT; Feb 02 2022 10:03AM EST Electronically signed by : Aleida Metzger, PT; May 16 2022 12:47PM EST (Author) [facility] PT Progress Noteon 2 PT Progress Note [...] . x3 pool; final 5 visits at [place]. Potential to achieve rehab goals is fair: [...] code time is 41 minutes. Aquatic Therapy (65844): timed minutes 43, units 3 . All [...] PT; Feb 01 2022 6:55AM EST [facility] Absolute lymphocyte counton 01-28-2022 Lymphocytes Auto (Unsp spec) [#/Vol] 1.24 10*3/uL 0.83-4.51 [facility] Work Phone: [phone] Basophil percentageon 2021 Basophils/100 WBC (Bld) 0.5 % 0-1 [facility] Work Phone: [phone] Bilirubin [Mass/Vol] 0.40 mg/dL 0.20-1.00 [facility] Work Phone: [phone] Comment on above: For patients on eltr ombopag therapy, use of Dimension [place] TBIL is not recommended. Chloride [Moles/Vol] 109 mmol/L 98-107 [facility] Work Phone: [phone] Eosinophils/100 WBC (Bld) 2.5 % 0-5 [facility] Work Phone: [phone] Glucose [Mass/Vol] 102 mg/dL 74-106 [facility] Work Phone: [phone] Comment on above: Fasting Glucose resu lt from 100 to 125 mg/dL suggests IMPAIRED HOMEOSTASIS per A.D.A. criteria. Neutrophils (Bld) [#/Vol] 2.5 10*3/uL 2.0-7.7 [facility] Work Phone: [phone] Neutrophils/100 WBC (Bld) 57.4 % 47-70 [facility] Work Phone: [phone] Potassium [Moles/Vol] 3.9 mmol/L 3.5-5.1 [facility] Work Phone: [phone] Protein [Mass/Vol] 7.6 g/dL 6.4-8.2 [facility] Work Phone: Sodium [Moles/Vol] 143 mmol/L 136-145 [facility] Work Phone: WBC (Bld) [#/Vol] 4.3 10*3/uL 4.4-11.0 [facility] Work Phone: Blood erythrocytes count (nu mber/volume)on 01-28-2022 RBC (Bld) [#/Vol] 4.72 10*6/uL 4.2-5.4 [facility]: Blood hemoglobin measurement (mass/volume)on 01-28-2022 Hemoglobin (Bld) [Mass/Vol] 13.8 g/dL 12.0-15.0 [facility] Work Phone: Blood lymphocytes/100 leukoc yteson 01-28-2022 Lymphocytes/100 WBC (Bld) 28.6 % 19-41 [facility] Work Phone: Blood monocytes/100 leukocyt eson 01-28-2022 Monocytes/100 WBC (Bld) 10.8 % 0-10 [facility] Work Phone: Blood platelet mean volumeon 01-28-2022 Platelet mean volume (Bld) [Entitic vol] 10.7 fL 6.2-12.0 [facility] Work Phone: Determination of erythrocyte mean corpuscular volume (MCV)on 01-28-2022 MCV (RBC) [Entitic vol] 94.3 fL 81-99 [facility] Work Phone: Hematocrit Auto (Bld) [Volum e fraction]on 01-28-2022 Hematocrit (Bld) [Volume fraction] 44.5 % 37-47 [facility] Work Phone: Laboratory - Chemistry and C hemistry - challengeon 01-28-2022 ALP [Catalytic activity/Vol] 80 U/L 45-117 [facility] Work Phone: ALT [Catalytic activity/Vol] 37 U/L 13-56 [facility] Work Phone: CO2 [Moles/Vol] 26.0 mmol/L 21.0-32.0 [facility] Work Phone: Globulin (S) [Mass/Vol] 3.8 g/dL 2.2-4.2 [facility] Work Phone: Lipase [Catalytic activity/Vol] 213 U/L 73-393 [facility] Work Phone: Urea nitrogen/Creatinine [Mass ratio] 15.9 mg/mg 10-20 [facility] Work Phone: Laboratory - Hematology and Cell countson 01-28-2022 Erythrocyte distribution width (RBC) [Entitic vol] 51.2 fL 35.1-43.9 [facility] Work Phone: Erythrocyte distribution width (RBC) [Ratio] 14.6 % 11.6-14.6 [facility] Work Phone: Immature granulocytes/100 WBC (Bld) 0.200 % 0.0-0.9 [facility] Work Phone: Comment on above: IG% - Immature Granu locytes (promyelocytes, myelocytes and metamyelocytes) > 1% indicates that a LEFT SHIFT is Present. MCH (RBC) [Entitic mass] 29.2 pg 27.0-32.0 [facility] Work Phone: Nucleated RBC/100 WBC (Bld) [Ratio] 0 % 0-5 [facility] Work Phone: MCHC Auto (RBC) [Mass/Vol]on 01-28-2022 MCHC (RBC) [Mass/Vol] 31.0 g/dL 32-36 [facility] Work Phone: No Panel Informationon 01-28 Estimated Creatinine Clearance Calc 53.69 ml/min [facility] Work Phone: Estimated GFR (MDRD) Amer 76 mL/min >60 [facility] Work Phone: Comment on above: GFR Calc Estimated GFR (MDRD) Non-Af Amer 63 mL/min >60 [facility] Work Phone: Comment on above: Non- GFR Calc Platelets bldon 01-28-2022 Platelets (Bld) [#/Vol] 196 10*3/uL 150-450 [facility] Work Phone: Serum or plasma albumin tim urement (mass/volume)on 01-28-2022 Albumin [Mass/Vol] 3.8 g/dL 3.2-5.0 [facility] Work Phone: Serum or plasma albumin/glob ulin mass ratioon 01-28-2022 Albumin/Globulin [Mass ratio] 1.0 {ratio} 0.9-2.4 [facility] Work Phone: Serum or plasma calcium tim urement (mass/volume)on 01-28-2022 Calcium [Mass/Vol] 9.4 mg/dL 8.5-10.1 [facility] Work Phone: Serum or plasma creatinine m easurement (mass/volume)on 01-28-2022 Creatinine [Mass/Vol] 0.94 mg/dL 0.55-1.02 [facility] Work Phone: Comment on above: The validity of the calculated GFR & GFRAA in patients over 70 years has not been determined. Clinical correlation is essential. Serum or plasma urea nitroge n measurement (mass/volume)on 01-28-2022 Urea nitrogen [Mass/Vol] 15 mg/dL 7-18 [facility] Work Phone: Thin prep Papanicolaou smear with manual screeningon 01-28-2022 Thin prep Papanicolaou smear with manual screening 29 U/L 15-37 [facility] Work Phone: Thin prep Papanicolaou smear with manual screening 8 5-15 [facility] Work Phone: PT Initial Evaluationon 01-06 PT [...] . x3 pool; final 5 visits at [place]. Potential to achieve rehab goals is fair: [...] Current Medical Management:. MRI; injections; PT (in [place]). Precautions: none. Fall Risk: none Functional Assessment [...] learning preventative care measures . 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 Current Status: improving . injections. Patient Awareness: Patient is aware of her diagnosis and prognosis. Personal Factors That May Impact Care:. ID confirmed with B-day; speaks tajik No obtrusive barriers to learning identified/observed. Objective [...] 28% Treat (more content not included)... [facility] COMPREHENSIVE PANELon 2021 ALBUMIN Canceled Normal [facility] Comment on above: Order Comment: TEST COMPREHENSIVE PANEL WAS CANCELLED, 11/15/2021 10:43 WAS UNABLE TO OBTAIN BLOOD 11/15/2021. Performed By: #### C MP #### [place] [address] ALKALINE PHOSPHATASE Canceled Normal [facility] Comment on above: Order Comment: TEST COMPREHENSIVE PANEL WAS CANCELLED, 11/15/2021 10:43 WAS UNABLE TO OBTAIN BLOOD 11/15/2021. Performed By: #### C MP #### [place] [address] ALT Canceled Normal [facility] Comment on above: Order Comment: TEST COMPREHENSIVE PANEL WAS CANCELLED, 11/15/2021 10:43 WAS UNABLE TO OBTAIN BLOOD 11/15/2021. Result Comment: Samantha ents treated with Sulfasalazine may generate falsely decreased results for ALT. Performed By: #### C MP #### [place] [address] ANION GAP Canceled Normal [facility] Comment on above: Order Comment: TEST COMPREHENSIVE PANEL WAS CANCELLED, 11/15/2021 10:43 WAS UNABLE TO OBTAIN BLOOD 11/15/2021. Performed By: #### C MP #### [place] [id number] AST Canceled Normal [facility] Comment on above: Order Comment: TEST COMPREHENSIVE PANEL WAS CANCELLED, 11/15/2021 10:43 WAS UNABLE TO OBTAIN BLOOD 11/15/2021. Performed By: #### C MP #### [address] [address] BICARBONATE Canceled Normal [facility] Comment on above: Order Comment: TEST COMPREHENSIVE PANEL WAS CANCELLED, 11/15/2021 10:43 WAS UNABLE TO OBTAIN BLOOD 11/15/2021. Performed By: #### C MP #### [address] [address] BILIRUBIN,TOTAL Canceled Normal [facility] [place] Comment on above: Order Comment: TEST COMPREHENSIVE PANEL WAS CANCELLED, 11/15/2021 10:43 WAS UNABLE TO OBTAIN BLOOD 11/15/2021. Performed By: #### C MP #### [address] [address] CALCIUM Canceled Normal [facility] Comment on above: Order Comment: TEST COMPREHENSIVE PANEL WAS CANCELLED, 11/15/2021 10:43 WAS UNABLE TO OBTAIN BLOOD 11/15/2021. Performed By: #### C MP #### [address] [address] CHLORIDE Canceled Normal [facility] Comment on above: Order Comment: TEST COMPREHENSIVE PANEL WAS CANCELLED, 11/15/2021 10:43 WAS UNABLE TO OBTAIN BLOOD 11/15/2021. Performed By: #### C MP #### [address] [address] CREATININE Canceled Normal [facility] Comment on above: Order Comment: TEST COMPREHENSIVE PANEL WAS CANCELLED, 11/15/2021 10:43 WAS UNABLE TO OBTAIN BLOOD 11/15/2021. Performed By: #### C MP #### [address] [address] eGFR FEMALE Canceled Normal [facility] Comment on above: Order Comment: TEST COMPREHENSIVE PANEL WAS CANCELLED, 11/15/2021 10:43 WAS UNABLE TO OBTAIN BLOOD 11/15/2021. Result Comment: CALC ULATIONS OF ESTIMATED GFR ARE PERFORMED USING THE 2020 CKD-EPI STUDY REFIT EQUATION WITHOUT THE RACE VARIABLE FOR THE IDMS-TRACEABLE CREATININE METHODS. https://jasn.asnjournals.org/content/early/ASN 924590 Performed By: #### C MP #### [address] [address] eGFR MALE Canceled Normal [facility] Comment on above: Order Comment: TEST COMPREHENSIVE PANEL WAS CANCELLED, 11/15/2021 10:43 WAS UNABLE TO OBTAIN BLOOD 11/15/2021. Result Comment: CALC ULATIONS OF ESTIMATED GFR ARE PERFORMED USING THE 2020 CKD-EPI STUDY REFIT EQUATION WITHOUT THE RACE VARIABLE FOR THE IDMS-TRACEABLE CREATININE METHODS. https://jasn.asnjournals.org/content/earlyASN 212076 Performed By: #### C MP #### [address] [address] GLUCOSE Canceled Normal [facility] Comment on above: Order Comment: TEST COMPREHENSIVE PANEL WAS CANCELLED, 11/15/2021 10:43 WAS UNABLE TO OBTAIN BLOOD 11/15/2021. Performed By: #### C MP #### [address] [address] POTASSIUM Canceled Normal [facility] Comment on above: Order Comment: TEST COMPREHENSIVE PANEL WAS CANCELLED, 11/15/2021 10:43 WAS UNABLE TO OBTAIN BLOOD 11/15/2021. Performed By: #### C MP #### [address] [address] SODIUM Canceled Normal [facility] Comment on above: Order Comment: TEST COMPREHENSIVE PANEL WAS CANCELLED, 11/15/2021 10:43 WAS UNABLE TO OBTAIN BLOOD 11/15/2021. Performed By: #### C MP #### [address] [address] TOTAL PROTEIN Canceled Normal [facility] Comment on above: Order Comment: TEST COMPREHENSIVE PANEL WAS CANCELLED, 11/15/2021 10:43 WAS UNABLE TO OBTAIN BLOOD 11/15/2021. Performed By: #### C MP #### [address] [address] UREA NITROGEN Canceled Normal [facility] Comment on above: Order Comment: TEST COMPREHENSIVE PANEL WAS CANCELLED, 11/15/2021 10:43 WAS UNABLE TO OBTAIN BLOOD 11/15/2021. Performed By: #### C MP #### [address] [address] HEMOGLOBIN A1Con 11-15-2021 EST.AVG.GLUCOSE Canceled Normal [facility] [place] Comment on above: Order Comment: TEST HEMOGLOBIN A1C WAS CANCELLED, 11/15/2021 10:43 WAS UNABLE TO OBTAIN BLOOD 11/15/2021. Performed By: #### H BA1E #### [address] [address] HGB A1C Canceled Normal [facility] Comment on above: Order Comment: TEST HEMOGLOBIN A1C WAS CANCELLED, 11/15/2021 10:43 WAS UNABLE TO OBTAIN BLOOD 11/15/2021. Result Comment: Diag nosis of Diabetes-Adults Non-Diabetic: < or = 5.6% Increased risk for developing diabetes: 5.7-6.4% Diagnostic of diabetes: > or = 6.5% . Monitoring of Diabetes Age (y) Therapeutic Goal (%) Adults: >18 <7.0 Pediatrics: 13-18 <7.5 7-12 <8.0 0- 6 7.5-8.5 [employer]. Diabetes Care 33(S1), May 2009. Performed By: #### H BA1E #### [address] [address] LIPID PANEL (CORONARY RISK 2 )on 11-15-2021 CHOLESTEROL Canceled Normal [facility] Comment on above: Order Comment: [...] dosing. Performed By: #### L IPID #### [address] [address] CHOLESTEROL/HDL RATIO Canceled Normal [facility] Comment on above: Order Comment: TEST LIPID PANEL (CORONARY RISK 2) WAS CANCELLED, 11/15/2021 10:43 WAS UNABLE TO OBTAIN BLOOD 11/15/2021. Performed By: #### L IPID #### [address] [address] HDL-CHOLESTEROL Canceled Normal [facility] [place], operated [facility] Comment on above: Order Comment: TEST LIPID PANEL (CORONARY RISK 2) WAS CANCELLED, 11/15/2021 10:43 WAS UNABLE TO OBTAIN BLOOD 11/15/2021. Result Comment: . AGE VERY LOW LOW NORMAL HIGH 0-19 Y < 35 < 40 40-45 ---- 20-24 Y ---- < 40 >45 ---- >24 Y ---- < 40 40-60 >60 . Performed By: #### L IPID #### [address] [address] LDL Canceled Normal [facility] Comment on above: Order Comment: [...] . Performed By: #### L IPID #### [address] [address] NON-HDL CHOLESTEROL Canceled Normal [facility] Comment on above: Order Comment: TEST [...] . Performed By: #### L IPID #### [address] [address] TRIGLYCERIDES Canceled Normal [facility] Comment on above: Order Comment: TEST LIPID [...] dosing. Performed By: #### L IPID #### [address] [address] VLDL Canceled Normal [facility] Comment on above: Order Comment: TEST LIPID PANEL (CORONARY RISK 2) WAS CANCELLED, 11/15/2021 10:43 WAS UNABLE TO OBTAIN BLOOD 11/15/2021. Performed By: #### L IPID #### [address] [address] MAGNESIUMon 11-15-2021 MAGNESIUM Canceled Normal [facility] Comment on above: Order Comment: TEST MAGNESIUM WAS CANCELLED, 11/15/2021 10:43 WAS UNABLE TO OBTAIN BLOOD 11/15/2021. Performed By: #### M G #### [address] [address] TSHon 11-15-2021 TSH Canceled Normal [facility] Comment on above: Order Comment: TEST TSH WAS CANCELLED, 11/15/2021 10:43 WAS UNABLE TO OBTAIN BLOOD 11/15/2021. Result Comment: TSH testing is performed using different testing methodology at [facility] than at other [facility]. Direct result comparisons should only be made within the same method. Performed By: #### T SH2 #### [address] [address] VITAMIN B12on 11-15-2021 VITAMIN B12 Canceled Normal [facility] Comment on above: Order Comment: TEST VITAMIN B12 WAS CANCELLED, 11/15/2021 10:43 WAS UNABLE TO OBTAIN BLOOD 11/15/2021. Performed By: #### V TB12 #### [address] [address] VITAMIN D, 25-HYDROXYon 11-04 VITAMIN D, 25-HYDROXY Canceled Normal [facility] Comment on above: Order Comment: TEST VITAMIN D, 25-HYDROXY WAS CANCELLED, 11/15/2021 10:43 WAS UNABLE TO OBTAIN BLOOD 11/15/2021. Performed By: #### V TDOH #### [address] [address] HOLTER MONITon 07-30-2019 HOLTER MONIT This is [...] few PVCs, PACs, and baseline noise Normal [facility] Ambulatory XR Hip 2-3 Views Lefton 09-0 XR Hip 2-3 Views Left Exam Date/Time: 01/07/2019 10:04 EDT Reason for Exam: left hip pain Report STUDY: XR Hip 2-3 Views Left; 01/07/2019 10:04 am INDICATION: left hip pain. COMPARISON: None. ACCESSION NUMBER(S): [id number] ORDERING CLINICIAN: Edgar Holbrook TECHNIQUE: AP and lateral views of the left hip were obtained. FINDINGS: There is no acute fracture or dislocation identified. [id number] hypertrophic degenerative changes are seen in the left sacroiliac joint. Mild joint space narrowing and small marginal osteophytes are seen in the left hip. IMPRESSION: 1. No evidence of acute fracture or dislocation. 2. Degenerative changes, as described above. FINAL REPORT Dictated: 01/08/2019 9:23 am Antoine Perkins MD Signed (Electronic Signature): 01/08/2019 9:23 am Signed by: Antoine Perkins MD Technologist: SREEDHAR [facility] Vital Signs Date Time Vital Sign Value Performing Clinician Facility 11-28-2024 12:42-0400 Body height 167.[address] Romeo Shankar MD Work Phone: [facility] 11-28-2024 12:42-0400 Body mass index (BMI) [Ratio] 33 kg/m2 Dr. Romeo Shankar MD Work Phone: [facility] 11-28-2024 12:42-0400 Body temperature 98.6 [degF] Dr. Romeo Shankar MD Work Phone: [facility] 11-28-2024 12:42-0400 Body weight 92.[address] Romeo Shankar MD Work Phone: [facility] 11-28-2024 12:42-0400 Diastolic blood pressure 70 mm[Hg] Dr. Romeo Shankar MD Work Phone: [facility] 11-28-2024 12:42-0400 Heart rate 54 /min Dr. Romeo Shankar MD Work Phone: [facility] 11-28-2024 12:42-0400 Respiratory rate 18 /min Dr. Romeo Shankar MD Work Phone: [facility] 11-28-2024 12:42-0400 SaO2% (BldA) [Mass fraction] 99 % Dr. Romeo Shankar MD Work Phone: [facility] 11-28-2024 12:42-0400 Systolic blood pressure 143 mm[Hg] Dr. Romeo Shankar MD Work Phone: [facility] 08-11-2024 15:09-0400 Body mass index (BMI) [Ratio] 34.38 kg/m2 Zenobia Resendez MD Work Phone: [facility] 08-11-2024 15:09-0400 Body weight 92.99 kg Zenobia Resendez MD Work Phone: [facility] 08-11-2024 15:09-0400 Diastolic blood pressure 70 mm[Hg] Zenobia Resendez MD Work Phone: [facility] 08-11-2024 15:09-0400 Systolic blood pressure 120 mm[Hg] Zenobia Resendez MD Work Phone: [facility] 07-24-2023 14:35-0400 Body height 165.1 cm Alyssa Schultz MD Work Phone: [facility] 06-01-2023 12:09-0500 Body height 167.6 cm Alyssa Schultz MD Work Phone: [facility] 06-01-2023 12:09-0500 Body mass index (BMI) [Ratio] 34.89 kg/m2 Alyssa Schultz MD Work Phone: [facility] 06-01-2023 12:09-0500 Body temperature 98.1 [degF] Alyssa Schultz MD Work Phone: [facility] 06-01-2023 12:09-0500 Body weight 98 kg Alyssa Schultz MD Work Phone: [facility] 06-01-2023 12:09-0500 Diastolic blood pressure 62 mm[Hg] Alyssa Schultz MD Work Phone: [facility] 06-01-2023 12:09-0500 Heart rate 58 /min Alyssa Schultz MD Work Phone: [facility] 06-01-2023 12:09-0500 Respiratory rate 18 /min Alyssa Schultz MD Work Phone: [facility] 06-01-2023 12:09-0500 SaO2% (BldA) [Mass fraction] 96 % Alyssa Schultz MD Work Phone: [facility] 06-01-2023 12:09-0500 Systolic blood pressure 128 mm[Hg] Alyssa Schultz MD Work Phone: [facility] 05-30-2023 18:41-0500 Diastolic blood pressure 70 mm[Hg] Dr. Edgar Holbrook Work Phone: [facility] 05-30-2023 18:41-0500 Heart rate 76 /min Dr. Edgar Holbrook Work Phone: [facility] 05-30-2023 18:41-0500 Respiratory rate 20 /min Dr. Edgar Holbrook Work Phone: [facility] 05-30-2023 18:41-0500 SaO2% (BldA) [Mass fraction] 97 % Dr. Edgar Holbrook Work Phone: [facility] 05-30-2023 18:41-0500 Systolic blood pressure 135 mm[Hg] Dr. Edgar Holbrook Work Phone: [facility] 05-30-2023 17:40-0500 Body temperature 98.5 [degF] Dr. Edgar Holbrook Work Phone: [facility] 05-30-2023 12:12-0500 Body height 167.[address] Edgar Holbrook Work Phone: [facility] 05-30-2023 12:12-0500 Body mass index (BMI) [Ratio] 34.4 kg/m2 Dr. Edgar Holbrook Work Phone: [facility] 05-30-2023 12:12-0500 Body weight 96.[address] Edgar Holbrook Work Phone: [facility] 05-30-2023 11:44-0500 Body mass index (BMI) [Ratio] 33.4 kg/m2 Dr. Edgar Holbrook Work Phone: [facility] 05-30-2023 11:44-0500 Body temperature 96.7 [degF] Dr. Edgar Holbrook Work Phone: [facility] 05-30-2023 11:44-0500 Body weight 93.[address] Edgar Holbrook Work Phone: [facility] 05-30-2023 11:44-0500 Diastolic blood pressure 80 mm[Hg] Dr. Edgar Holbrook Work Phone: [facility] 05-30-2023 11:44-0500 Heart rate 61 /min Dr. Edgar Holbrook Work Phone: [facility] 05-30-2023 11:44-0500 Respiratory rate 18 /min Dr. Edgar Holbrook Work Phone: [facility] 05-30-2023 11:44-0500 SaO2% (BldA) [Mass fraction] 97 % Dr. Edgar Holbrook Work Phone: [facility] 05-30-2023 11:44-0500 Systolic blood pressure 132 mm[Hg] Dr. Edgar Holbrook Work Phone: [facility] 06-15-2022 23:30-0500 Body temperature 97.81 [degF] Obed Hull MD Work Phone: [facility] 06-15-2022 23:30-0500 Diastolic blood pressure 70 mm[Hg] Obed Hull MD Work Phone: [facility] 06-15-2022 23:30-0500 Heart rate 80 /min Obed Hull MD Work Phone: [facility] 06-15-2022 23:30-0500 Respiratory rate 18 /min Obed Hull MD Work Phone: [facility] 06-15-2022 23:30-0500 SaO2% (BldA) [Mass fraction] 99 % Obed Hull MD Work Phone: [facility] 06-15-2022 23:30-0500 Systolic blood pressure 134 mm[Hg] Obed Hull MD Work Phone: [facility] 06-15-2022 20:22-0500 Body height 165.1 cm Obed Hull MD Work Phone: [facility] 01-28-2022 09:57-0400 Diastolic blood pressure 81 mm[Hg] [facility] Work Phone: 01-28-2022 09:57-0400 Heart rate 56 /min [facility] Work Phone: 01-28-2022 09:57-0400 Respiratory rate 16 /min [facility] Work Phone: 01-28-2022 09:57-0400 SaO2% (BldA) [Mass fraction] 98 % [facility] Work Phone: 01-28-2022 09:57-0400 Systolic blood pressure 107 mm[Hg] [facility] Work Phone: 01-28-2022 07:57-0400 Body height 165.1 cm [facility] Work Phone: 01-28-2022 07:57-0400 Body mass index (BMI) [Ratio] 35.4 kg/m2 [facility] Work Phone: 01-28-2022 07:57-0400 Body temperature 97.8 [degF] [facility] Work Phone: 01-28-2022 07:57-0400 Body weight 96.4 kg [facility] Work Phone: 12-13-2021 09:49-0400 Body weight 95.25 kg Piper Rahman POT FILLER[employer]CNM Work Phone: [facility] 12-13-2021 09:49-0400 Diastolic blood pressure 72 mm[Hg] Piper Rahman [employer]OT [employer]ER[employer]CNM Work Phone: [facility] 12-13-2021 09:49-0400 Systolic blood pressure 118 mm[Hg] Piper Rahman POT FILLER[employer]CNM Work Phone: [facility] Encounters Encounter Date Encounter Type Care Provider Facility Start: 12-02-2024 Non-patient / Non-visit Dr. Salomón White MD -[facility] Start: 12-02-2024 End: 12-02-[address] Romeo Shankar MD Work Phone: -Cardiovascular Services Start: 12-02-2024 End: 12-02-[address] Romeo Shankar MD -Cardiovascular Services Work Phone: Start: 12-02-2024 End: 12-02-[address] Romeo Shankar MD Work Phone: -Laboratory Phy Office 3rd Flr Start: 12-02-2024 End: 12-02-[address] Romeo Shankar MD -Laboratory Phy Office 3rd Flr Start: 12-02-2024 End: 12-02-2024 ambulatory Romeo Shankar Facility:[facility] Start: 11-28-2024 End: 11-28-2024 Emergency department patient visit Dr. Romeo Shankar MD Work Phone: -Emergency Department Work Phone: Start: 10-01-2024 End: 12-01-2024 Follow-up encounter Zenobia Resendez MD Work Phone: OB/Gynecology Start: 09-26-2024 End: 09-26-2024 ambulatory ZENOBIA RESENDEZ Facility:[facility] Start: 09-23-2024 End: 09-23-2024 ambulatory ZENOBIA RESENDEZ Facility:[facility] Start: 08-18-2024 End: 08-18-[address] Romeo Shankar MD Work Phone: [facility] Work Phone: Start: 08-18-2024 End: 08-18-[address] Romeo Shankar MD -[facility] Work Phone: Start: 08-18-2024 End: 08-18-2024 ambulatory Romeo Shankar Facility:[facility] Start: 08-12-2024 End: 10-12-2024 Follow-up encounter Zenobia Resendez MD Work Phone: OB/Gynecology Start: 08-12-2024 End: 08-12-2024 Telephone encounter Zenobia Resendez MD Work Phone: OB/Gynecology Comment on above: Results Start: 08-11-2024 End: 08-11-2024 ambulatory ZENOBIA RESENDEZ Facility:[facility] Start: 08-11-2024 End: 08-11-2024 Patient encounter procedure Zenobia Resendez MD Work Phone: OB/Gynecology Comment on above: PMB (postmenopausal bleeding) (Primary Dx); Vaginal irritation; Encounter for screening for malignant neoplasm of cervix Start: 07-22-2024 End: 07-22-[address] Romeo Shankar MD Work Phone: [facility] Work Phone: Start: 07-22-2024 End: 07-22-[address] Romeo Shankar MD -Laboratory, Specimen Work Phone: Start: 07-22-2024 End: 07-22-[address] Romeo Shankar MD Work Phone: [facility] Work Phone: Start: 07-22-2024 End: 07-22-[address] Romeo Shankar MD -Radiology, [facility] Work Phone: Start: 07-22-2024 End: 07-22-2024 ambulatory Romeo Chi Raad Facility:[facility] Start: 06-05-2024 End: 06-05-[address] Romeo Shankar MD -Laboratory, Phy Office 3rd Flr Start: 06-05-2024 End: 06-05-2024 ambulatory Romeo Chi Raad Facility:[facility] Start: 02-14-2024 End: 02-14-2024 ambulatory ROMEO CHI RAAD [facility] Start: 01-04-2024 ambulatory Romeo Chi Raad Facility:[facility] Start: 01-04-2024 End: 01-04-2024 ambulatory Romeo Chi Raad Facility:[facility] Start: 12-31-2023 End: 12-31-2023 ambulatory Romeo Chi Rada Facility:[facility] Start: 12-25-2023 End: 12-25-2023 ambulatory Romeo Chi Raad Facility:[facility] Start: 08-09-2023 ambulatory ROMEO-CHI RAAD Facility:[facility] Start: 07-24-2023 ambulatory ALYSSA SCHULTZ Facility:[facility] Start: 07-24-2023 ambulatory ALYSSA SCHULTZ Facility:[facility] Start: 07-24-2023 End: 07-24-2023 Subsequent hospital visit by physician Alyssa Schultz MD Work Phone: [facility] Comment on above: Arrived Start: 07-10-[address] Edgar Holbrook Work Phone: [facility]-Occupational Therapy Work Phone: Start: 07-05-2023 End: 07-05-[address] Edgar Holbrook Work Phone: [facility] Work Phone: Start: 07-05-2023 End: 07-05-[address] Edgar Holbrook Work Phone: [facility]-Laboratory, Phy Office 3rd Flr Start: 07-03-[address] Edgar Holbrook Work Phone: [facility]Occ[facility]ational [facility] Work Phone: Start: 06-29-2023 End: 06-29-[address] Edgar Holbrook Work Phone: [facility] Work Phone: Start: 06-29-2023 End: 06-29-[address] Edgar Holbrook Work Phone: [facility]-Outpatient Bone Densitometry Work Phone: Start: 06-04-2023 End: 06-04-[address] Edgar Holbrook Work Phone: [facility]-Laboratory, Phy Office 3rd Flr Start: 05-30-2023 End: 06-01-2023 Evaluation and management of inpatient SURGERY - NEURO CONSULT Facility:[facility] Start: 05-30-2023 End: 06-01-2023 Evaluation and management of inpatient Hussain Limon MD Work Phone: [id number] Comment on above: Brain bleed Start: 05-30-2023 End: 05-30-2023 Emergency department patient visit Dr. Edgar Holbrook Work Phone: [facility]-Emergency Department Work Phone: Start: 05-30-2023 End: 05-30-[address] Edgar Holbrook Work Phone: [facility] Work Phone: Start: 04-09-2023 End: 04-09-2023 Patient encounter procedure Martha Bailey OD Work Phone: Optometry Comment on above: Hyperopia of both ey es (Primary Dx); Regular astigmatism of both eyes; Presbyopia - Both Eyes Start: 11-17-2022 ambulatory Ms. Kait Oneil Facility:[id number] Start: 11-17-2022 Patient encounter procedure Edgar Holbrook Work Phone: [facility] Work Phone: Start: 10-20-2022 ambulatory Ms. Kait Oneil Facility:[id number] Start: 10-11-2022 ambulatory Ms. Kait Oneil Facility:[id number] Start: 10-11-2022 Patient encounter procedure Edgar Holbrook Work Phone: [facility] Work Phone: Start: 10-04-2022 ambulatory Ms. Kait Oneil Facility:[id number] Start: 10-04-2022 Patient encounter procedure Edgar Holbrook Work Phone: [facility] Work Phone: Start: 09-22-[address] Edgar Holbrook Facility:[id number] Start: 09-18-[address] Edgar Holbrook Facility:[id number] Start: 09-18-2022 Patient encounter procedure Edgar Holbrook Work Phone: [facility] Work Phone: Start: 09-11-[address] Edgar Holbrook Facility:[id number] Start: 09-11-2022 Patient encounter procedure Edgar Holbrook Work Phone: [facility] Work Phone: Start: 09-08-[address] Edgar Holbrook Facility:[id number] Start: 09-08-2022 Patient encounter procedure Edgar Holbrook Work Phone: [facility] Work Phone: Start: 09-04-[address] Edgar Holbrook Facility:[id number] Start: 09-04-2022 Patient encounter procedure Edgar Holbrook Work Phone: [facility] Work Phone: Start: 09-01-2022 Patient encounter procedure Edgar Holbrook Work Phone: [facility] Work Phone: Start: 09-01-[address] Edgar Holbrook Facility:[id number] Start: 08-28-[address] Edgar Holbrook Facility:[id number] Start: 08-25-2022 Patient encounter procedure Edgar Holbrook Work Phone: [facility] Work Phone: Start: 08-25-2022 ambulatory Ms. Kait Oneil Facility:[id number] Start: 06-15-2022 End: 06-15-2022 Emergency department patient visit Obed Hull MD Work Phone: [facility] Emergency Department Start: 04-27-2022 Telephone encounter Compa Long DO Work Phone: Mammogram Comment on above: Results Start: 04-05-2022 Patient encounter procedure Edgar Holbrook Work Phone: [facility] Work Phone: Start: 04-05-[address] Chay Ramírez Facility:[id number] Start: 04-05-2022 [id number], Provider : Miracle Schmitz, Status: Pen, Time: 9:15 AM Edgar Holbrook Work Phone: [facility] Work Phone: Start: 04-03-2022 Patient encounter procedure Edgar Holbrook Work Phone: [facility] Work Phone: Start: 03-27-[address] Edgar Holbrook Facility:[id number] Start: 03-27-2022 Patient encounter procedure Edgar Holbrook Work Phone: [facility] Work Phone: Start: 03-24-2022 Patient encounter procedure Edgar Holbrook Work Phone: [facility] Work Phone: Start: 03-24-[address] Chay Ramírez Facility:[id number] Start: 03-20-[address] Chay Ramírez Facility:[id number] Start: 03-07-2022 End: 03-07-2022 Patient encounter procedure Breonna Juarez PA-C Work Phone: [facility] Comment on above: Chalazion right uppe r eyelid (Primary Dx) Start: 03-06-[address] Chay Ramírez Facility:[id number] Start: 03-06-2022 Patient encounter procedure Edgar Holbrook Work Phone: [facility] Work Phone: Start: 03-03-[address] Chay Ramírez Facility:[id number] Start: 03-03-2022 Patient encounter procedure Edgar Holbrook Work Phone: [facility] Work Phone: Start: 03-03-2022 PTFUADULT4, Provider : Miracle Schmitz, Status: Pen, Time: 10:45 AM Edgar Holbrook Work Phone: [facility] Work Phone: Start: 02-27-[address] Chay Ramírez Facility:[id number] Start: 02-27-2022 Patient encounter procedure Edgar Holbrook Work Phone: [facility] Work Phone: Start: 02-24-[address] Chay Ramírez Facility:[id number] Start: 02-24-2022 Patient encounter procedure Edgar Holbrook Work Phone: [facility] Work Phone: Start: 02-20-[address] Chay Ramírez Facility:[id number] Start: 02-20-2022 Patient encounter procedure Edgar Holbrook Work Phone: [facility] Work Phone: Start: 02-13-2022 Patient encounter procedure Edgar Holbrook Work Phone: [facility] Work Phone: Start: 02-13-[address] Chay Ramírez Facility:[id number] Start: 02-10-[address] Chay Ramírez Facility:[id number] Start: 02-10-2022 PTFUADULT4, Provider : Miracle Schmitz, Status: Pen, Time: 8:30 AM Edgar Holbrook Work Phone: [facility] Work Phone: Start: 02-08-[address] Edgar Holbrook Facility:[id number] Start: 02-08-2022 Patient encounter procedure Edgar Holbrook Work Phone: [facility] Work Phone: Start: 02-07-2022 End: 02-07-2022 Patient encounter procedure Jonah Farley POT FILLER.EXPLOSIVE ORDNANCE DISPOSAL TECHNICIAN Work Phone: [facility] Comment on above: Chalazion of right u pper eyelid (Primary Dx) Start: 02-02-[address] Edgar Holbrook Facility:[id number] Start: 02-02-2022 AQUATICFU4, Provider : Miracle Moreno, Status: Pen, Time: 9:15 AM Edgar Holbrook Work Phone: [facility] Work Phone: Start: 02-02-2022 Patient encounter procedure Edgar Holbrook Work [facility] Work Phone: Start: 01-31-[address] 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 Work Phone: Start: 01-25-[address] Chay [...] 07-08-2020 Orders Only Rupinder Houston Work Phone: [facility] Start: 07-25-2019 End: 07-26-2019 Patient encounter procedure EDGAR HOLBROOK [facility] Start: 07-25-2019 End: 07-25-2019 Subsequent hospital visit by physician Edgar Holbrook Work Phone: [facility] Comment on above: Palpitation Procedures Date Procedure Procedure Detail Performing Clinician Start: 12-02-2024 Vitamin D, 25-hydrox y measurement Dr. Romeo Shankar MD Work Phone: Comment on above: Vitamin D StatusDefi ciency: <20 ng/mL (50nmol/L)Insufficiency: 20-30 ng/mL (50-75 nmol/L)Sufficiency: 30-100 ng/mL (75-250 nmol/L)Toxicity: >100 ng/mL (>250 nmol/L) Start: 11-28-2024 Plain X-ray of tibia and fibula Dr. Romeo Shankar MD Work Phone: Start: 11-28-2024 X-ray of knee, four or [...] Performed By: #### X M #### [facility] [address] [place] [address] Start: 05-30-2023 Antibody screen Alyssa Schultz MD [...] with white cell differential, automated Julia A Susan DO Work Phone: Start: 05-30-2023 GOLD TOP [...] intravenous contrast Start: 11-03-2019 Mammography Piper guy [employer]ER[employer]CNM Work Phone: Start: 10-08-2017 Colonoscopy Piper P brooks POT FILLER.CNM Work Phone: Start: 09-28-2012 Lipid 1996 panel - S lenny or Plasma Martha Bailey OD Work Phone: Plan of Treatment Date Care Activity Detail Author Start: 07-10-2033 Urine microalbumin profile DTaP,Tdap,Td Vaccine (3 - Td or Tdap) [facility] Start: 05-30-2028 Lipid panel LIPID SCREENING [facility] Start: 04-23-2028 Tetanus vaccination [facility] Start: 04-23-2028 Urine microalbumin profile DTaP,Tdap,Td Vaccine (2 - Td or Tdap) [facility] Start: 06-01-2026 Diabetes Screening Diabetes Screenin g [facility] Start: 01-05-2025 Influenza vaccination Influenza Vacc ine (#1) [facility] Start: 11-28-2024 Plain X-ray of tibia and fibula Tibia & Fibula 2 Views [facility] Start: 11-28-2024 XR Tibia and Fibula 2 Views [facility] Start: 09-26-2024 End: 09-26-2024 Patient encounter procedure 09/26/2024 8:20 AM EDT Office Visit OB/Gynecology [address] [place] [address] Zenobia Rodriguez MD [address] [place] [address] [facility] Comment on above: [facility] Start: 09-23-2024 End: 09-23-2024 ambulatory 09/23/2024 8:30 AM EDT Procedure OB/Gynecology [address] [place] [address] Remote, [employer] [address] [place] [address] PMB (postmenopausal bleeding) [N95.0] OB/Gynecology Comment on above: PMB (postmenopausal bleeding) [N95.0] Start: 08-11-2024 End: 08-11-2025 US Pelvis PELVIC US [facility] Anc Imaging Routine PMB (postmenopausal bleeding) Expected: 08/11/2024, Expires: 08/11/2025 [facility] Work Phone: Comment on above: Expected: 08/11/2024 , Expires: 08/11/2025 Start: 07-04-2024 Covid-19 Vaccine ( season) Covid-19 Vaccine () [facility] Start: 06-01-2024 Thyroid stimulating hormone measurement TSH [facility] Start: 05-07-2024 Advance Directive Discussion Advance Directive Discussion [facility] Start: 07-30-2023 End: 06-01-2024 MR Brain WO and W contrast IV MRI BRAIN WITH AND WITHOUT CONTRAST Imaging Routine Brain bleed Expected: 07/30/2023, Expires: 06/01/2024 [facility] Comment on above: Expected: 07/30/2023 , Expires: 06/01/2024 Start: 07-24-2023 End: 07-24-2023 Patient encounter procedure [facility] [place] Start: 01-05-2023 Covid-19 Vaccine ( season) Covid-19 Vaccine ( season) [facility] Start: 01-05-2023 Influenza vaccination Influenza Vacc ine (#1) [facility] Start: 10-20-2022 FEI, Provider : Aleida Metzger, Status: Pen, Time: 8:00 AM PTRECHECKAury, Provider: Aleida Metzger, Status: Pen, Time: 8:00 AM [facility] [place] Work Phone: Start: 10-11-2022 PTFUADULT4, Provider : Jane Aaron, Status: Pen, Time: 8:30 AM PTFUADULT4, Provider: Jane Aaron, Status: Pen, Time: 8:30 AM [facility] [place] Work Phone: Start: 09-22-2022 PTRPATTY, Provider : Aleida Metzger, Status: Pen, Time: 8:15 AM PTRECHECKAury, Provider: Aleida Metzger, Status: Pen, Time: 8:15 AM [facility] Work Phone: Start: 09-18-2022 PTFUADULT4, Provider : Miracle Schmitz, Status: Pen, Time: 1:15 PM PTFUADULT4, Provider: Miracle Schmitz, Status: Pen, Time: 1:15 PM [facility] Work [facility]: Start: 09-15-2022 PTFUADULT4, Provider : Miracle Schmitz, Status: Pen, Time: 1:15 PM PTFUADULT4, Provider: Miracle Schmitz, Status: Pen, Time: 1:15 PM [facility] Work Phone: Start: 09-11-2022 PTFUADULT4, Provider : Nuha Haley, Status: Pen, Time: 1:15 PM PTFUADULT4, Provider: Nuha Haley, Status: Pen, Time: 1:15 PM [facility] Work Phone: Start: 09-08-2022 PTFUADULT4, Provider : Miracle Schmitz, Status: Pen, Time: 1:15 PM PTFUADULT4, Provider: Miracle Schmitz, Status: Pen, Time: 1:15 PM [facility] Work Phone: Start: 09-04-2022 PTFUADULT4, Provider : Miracle Schmitz, Status: Pen, Time: 1:15 PM PTFUADULT4, Provider: Miracle Schmitz, Status: Pen, Time: 1:15 PM [facility] Work Phone: Start: 09-01-2022 PTFUADULT4, Provider : Miracle Schmitz, Status: Pen, Time: 3:30 PM PTFUADULT4, Provider: Miracle Schmitz, Status: Pen, Time: 3:30 PM [facility] Work Phone: Start: 09-01-2022 PTFUADULT4, Provider : Miracle Schmitz, Status: Pen, Time: 10:45 AM PTFUADULT4, Provider: Miracle Schmitz, Status: Pen, Time: 10:45 AM [facility] Work Phone: Start: 08-28-2022 PTFUADULT4, Provider : Miracle Schmitz, Status: Pen, Time: 2:00 PM PTFUADULT4, Provider: Miracle Schmitz, Status: Pen, Time: 2:00 PM [facility] Work Phone: Start: 05-07-2022 ADVANCE DIRECTIVE DISCUSSION ADVANCE DIRECTIVE DISCUSSION [facility] Start: 05-07-2022 DEPRESSION ASSESSMENT DEPRESSION ASS ESSMENT [facility] Start: 04-05-2022 PTFUADULT4, Provider : Miracle Schmitz, Status: Pen, Time: 9:15 AM PTFUADULT4, Provider: Miracle Schmitz, Status: Pen, Time: 9:15 AM [facility] [place] Work Phone: Start: 04-03-2022 PTFUADULT4, Provider : Miracle Schmitz, Status: Pen, Time: 9:15 AM PTFUADULT4, Provider: Miracle Schmitz, Status: Pen, Time: 9:15 AM [facility] [place] Work Phone: Start: 03-27-2022 PTFUADULT4, Provider : Miracle Schmitz, Status: Pen, Time: 9:15 AM PTFUADULT4, Provider: Miracle Schmitz, Status: Pen, Time: 9:15 AM [facility] [place] Work Phone: Start: 03-24-2022 PTFUADULT4, Provider : Miracle Schmitz, Status: Pen, Time: 9:15 AM PTFUADULT4, Provider: Miracle Schmitz, Status: Pen, Time: 9:15 AM [facility] [place] Work Phone: Start: 03-20-2022 PTRECHECKA, Provider : Aleida Metzger, Status: Pen, Time: 10:45 AM PTRECHECKA, Provider: Aleida Metzger, Status: Pen, Time: 10:45 AM [facility] [place] Work Phone: Start: 03-17-2022 PTFUADULT4, Provider : Miracle Schmitz, Status: Pen, Time: 9:15 AM PTFUADULT4, Provider: Miracle Schmitz, Status: Pen, Time: 9:15 AM [facility] [place] Work Phone: Start: 03-13-2022 PTFUADULT4, Provider : Miracle Schmitz, Status: Pen, Time: 10:45 AM PTFUADULT4, Provider: Miracle Schmitz, Status: Pen, Time: 10:45 AM [facility] Start: 03-10-2022 PTFUADULT4, Provider : Miracle Schmitz, Status: Pen, Time: 8:30 AM PTFUADULT4, Provider: Miracle Schmitz, Status: Pen, Time: 8:30 AM [facility] Work [facility] Start: 03-06-2022 PTFUADULT4, Provider : Miracle Schmitz, Status: Pen, Time: 10:45 AM PTFUADULT4, Provider: Miracle Schmitz, Status: Pen, Time: 10:45 AM [facility] Work Phone: Start: 03-03-2022 PTFUADULT4, Provider : Miracle Schmitz, Status: Pen, Time: 10:45 AM PTFUADULT4, Provider: Miracle Schmitz, Status: Pen, Time: 10:[address] [facility] Work Phone: Start: 02-27-2022 PTFUADULT4, Provider : Miracle Schmitz, Status: Pen, Time: 10:00 AM PTFUADULT4, Provider: Miracle Schmitz, Status: Pen, Time: 10:[address] [facility] Work Phone: Start: 02-24-2022 PTFUADULT4, Provider : Miracle Schmitz, Status: Pen, Time: 8:30 AM PTFUADULT4, Provider: Miracle Schmitz, Status: Pen, Time: 8:30 AM [facility] Work [facility]: Start: 02-20-2022 PTRECHECKAury, Provider : Aleida Metzger, Status: Pen, Time: 10:15 AM PTRECHNATHAN, Provider: Aleida Metzger, Status: Pen, Time: 10:15 AM [facility] Work Phone: Start: 02-17-2022 PTFUADULT4, Provider : Jane Aaron, Status: Pen, Time: 2:00 PM PTFUADULT4, Provider: Jane Aaron, Status: Pen, Time: 2:00 PM [facility] Work Phone: Start: 02-17-2022 PTFUADULT4, Provider : Miracle Schmitz, Status: Pen, Time: 8:30 AM PTFUADULT4, Provider: Miracle Schmitz, Status: Pen, Time: 8:30 AM [facility] Work Phone: Start: 02-13-2022 PTFUADULT4, Provider : Miracle Schmitz, Status: Pen, Time: 1:15 PM PTFUADULT4, Provider: Miracle Schmitz, Status: Pen, Time: 1:15 PM [facility] Work Phone: Start: 02-10-2022 PTFUADULT4, Provider : Miracle Schmitz, Status: Pen, Time: 8:30 AM PTFUADULT4, Provider: Miracle Schmitz, Status: Pen, Time: 8:30 AM [facility] Work Phone: Start: 02-08-2022 AQUATICFU4, Provider : Mel Jimenez, Status: Pen, Time: 10:00 AM AQUATICFU4, Provider: Mel Jimenez, Status: Pen, Time: 10:00 AM [facility] Work Phone: Start: 02-02-2022 AQUATICFU4, Provider : Miracle Moreno, Status: Pen, Time: 9:15 AM AQUATICFU4, Provider: Miracle Moreno, Status: Pen, Time: 9:15 AM [facility] Work Phone: Start: 01-31-2022 AQUATICFU4, Provider : Miracle Moreno, Status: Geovani, Time: 10:45 AM AQUATICFU4, Provider: Miracle Moreno, Status: Geovani, Time: 10:45 AM [facility] Work Phone: Start: 01-05-2022 Influenza vaccination INFLUENZA (#1) [facility] Start: 07-01-2021 COVID-19 VACCINE (3 - Booster for Maikel series) COVID-19 VACCINE (3 - Booster for Maikel series) [facility] Start: 2021 ADVANCE DIRECTIVE DISCUSSION ADVANCE DIRECTIVE DISCUSSION [facility] Start: 2021 BONE DENSITY BONE DENSITY [facility] Start: 2021 Bone Density Screening Bone Density Screening [facility] Start: 2021 Pneumococcal vaccination [facility] Start: 2021 Pneumococcal Vaccine : 65+ (1 - PCV) Pneumococcal Vaccine: 65+ (1 - PCV) [facility] Start: 2021 PNEUMOCOCCAL: 65+ (1 - PCV) PNEUMOCOCCAL: 65+ (1 - PCV) [facility] Start: 2021 Screening for osteoporosis Bone Density Screening [facility] Start: 06-07-2021 Medicare Annual Well ness Visit Medicare Annual Wellness Visit [facility] Start: 05-07-2021 DEPRESSION ASSESSMENT DEPRESSION ASS ESSMENT [facility] Start: 04-25-2021 COVID-19 VACCINE (3 - Booster for Maikel series) COVID-19 VACCINE (3 - Booster for Maikel series) [facility] Start: 11-02-2020 Mammography [facility] Start: 11-02-2020 Screening for malign ant neoplasm of breast Mammogram Screening [facility] Start: 01-06-2020 Influenza vaccinatio n given Sequential Influenza Vaccine (#1) [facility] Start: 10-08-2018 Colonoscopy COLONOSCOPY [facility] Start: 10-08-2018 COLORECTAL CANCER SCREENING COLORECTAL CANCER SCREENING [facility] Start: 10-08-2018 Screening for malign ant neoplasm of colon [facility] Start: 09-28-2017 Lipid 1996 panel - S lenny or Plasma Lipid Screening [facility] Start: 09-28-2017 LIPID SCREEN LIPID SCREEN [facility] Start: 2016 RSV Vaccine (1 - 1-d ose 60+ series) RSV Vaccine (1 - 1-dose 60+ series) [facility] Start: 09-29-2015 DIABETES SCREEN DIABETES SCREEN [facility] Start: 09-29-2015 Diabetes Screening Diabetes Screenin g [facility] Start: 2006 Administration of he rpes zoster vaccine Zoster Vaccines (1 of 2) [facility] Start: 2006 Screening for malign ant neoplasm of colon [facility] Start: 2006 SHINGRIX VACCINE (1 of 2) SHINGRIX VACCINE (1 of 2) [facility] Start: 2001 COLOGUARD (FIT-DNA) COLOGUARD (FIT-D NA) [facility] Start: [address] COLONOGRAPHY [facility] Start: 2001 FECAL OCCULT BLOOD FECAL OCCULT BLOO D [facility] Start: 2001 Screening for malign ant neoplasm of colon [facility] Start: 2001 SIGMOIDOSCOPY SIGMOIDOSCOPY [facility] Start: 1996 Lipid panel LIPID SCREENING [facility] Start: 1996 Screening for malign ant neoplasm of breast MAMMOGRAM SCREENING DISCUSSION [facility] Start: 1977 Screening for malign ant neoplasm of cervix CERVICAL CANCER SCREENING DISCUSSION [facility] Start: 1975 Urine microalbumin profile DTAP,TDAP,TD (1 - Tdap) [facility] Start: 1974 Anxiety Screening Anxiety Screening [facility] Start: 1974 Depression Screening Depression Scre ening [facility] Start: 1974 Hepatitis C antibody , confirmatory test Hepatitis C Screening [facility] Start: 1974 HEPATITIS C SCREENING HEPATITIS C [facility] Start: 1974 Hepatitis C screening Hepatitis C [facility] Start: 1974 HIV SCREENING HIV SCREENING [facility] Start: 1972 COVID-19 Vaccine (1 of 2) COVID-19 Vaccine (1 of 2) [facility] Start: 1971 HIV screening HIV Screening [facility] Start: 1968 Adolescent depressio n screening assessment [facility] Start: 1959 History and physical examination, annual for health maintenance Wellness Visit [facility] Start: 1956 Hepatitis C antibody , confirmatory test Hepatitis C Screening [facility] Start: 1956 Hepatitis C screening HEPATITI S C VIRUS SCREENING [facility] Start: 1956 Screening for malign ant neoplasm of cervix Pap Smear [facility] Start: 1956 Screening for malign ant neoplasm of colon Colorectal Cancer Screening: Colonoscopy [facility] Start: 1956 Screening for osteoporosis DEXA SCAN DISCUSSION [facility] Start: 1956 Screening mammography [facility]amm[facility] End: 07-25-2019 24 Hour ECG Holter monitor - 24 hour Cardiac Services Routine Palpitation Once for 1 Occurrences starting 07/25/2019 until 07/25/2019 [facility] Comment on above: Once for 1 Occurrenc es starting 07/25/2019 until 07/25/2019 BACTERIAL VAGINOSIS NAAT BACTERI AL VAGINOSIS NAAT Lab Routine Vaginal irritation 08/11/2024 3:43 PM EDT [facility] KATHLEEN/TRICHOMONAS NAAT KATHLEEN /TRICHOMONAS NAAT Lab Routine Vaginal irritation 08/11/2024 3:43 PM EDT [facility] Endometrial bx w/wo endocervix bx w/o dilat spx ENDOMETRIAL BIOPSY Procedures Routine Abnormal uterine bleeding (AUB) Ordered: 12/13/2021 [facility] Work Phone: Comment on above: Ordered: 12/13/2021 Endometrial bx w/wo endocervix bx w/o dilat spx ENDOMETRIAL BIOPSY Procedures Routine PMB (postmenopausal bleeding) Ordered: 08/11/2024 [facility] Comment on above: Ordered: 08/11/2024 End: 07-24-2023 MR Brain WO contrast U [facility] Work Phone: Comment on above: 1 Occurrences starti ng 07/24/2023 until 07/24/2023 PAP FLUID CERVICAL SCREENING PAP FLUID CERVICAL SCREENING Lab Routine Encounter for screening for malignant neoplasm of cervix 12/13/2021 10:51 AM EDT [facility] Work Phone: PAP TEST PAP TEST Lab Rou gideon Encounter for screening for malignant neoplasm of cervix PMB (postmenopausal bleeding) 08/11/2024 3:43 PM EDT [facility] Patient Education Abdominal Pain HIDA Scan [facility] Work Phone: Patient referral [facility] Work Phone: PELVIC US WHI PELVIC US WHI An c Imaging Routine Abnormal uterine bleeding (AUB) Ordered: 12/13/2021 [facility] Work Phone: Comment on above: Ordered: 12/13/2021 End: 05-30-2023 Standard ECG ECG ECG STAT One Time for 1 Occurrences starting 05/30/2023 until 05/30/2023 [facility] Comment on above: One Time for 1 Occur rences starting 05/30/2023 until 05/30/2023 SURGICAL PATHOLOGY SURGICAL PATH OLOGY Lab Routine Abnormal uterine bleeding (AUB) 12/13/2021 10:50 AM EDT [facility] Work Phone: Throat culture CULTURE THROAT Microbiology Routine 06/15/2022 9:06 PM [facility] Immunizations Immunization Date Immunization Notes Care Provider [facility] 01-04-2024 influenza virus vaccine, unspecified formulation Zenobia Resendez MD Work Phone: [facility] 02-06-2022 influenza virus vaccine, unspecified formulation Martha Bailey OD Work Phone: [facility] Payers Date Payer Category Payer Self-pay [id number] 2021 [facility] [id number] 2021 Medicare [id number]. 1.13.159. [id number] 2021 Medicare [id number] 2021 Medicare [id number] 2017 Private Health Insurance [employer] [address] [place] [address] [id number]. [id number] 2017 Unknown [id number]. 1.13.159. 2.7.3.441810.315 2015 Unknown [id number] 2015 Unknown [employer] MED [employer] S UPERMED PPO [id number] 2015-Present [id number]. 2.7.3.233092.315 2015 Unknown MMO MED MUT[employer] S UPERMED PPO [id number] 2015-Present [id number] 1.2.840.566793.1.13.385. 2.7.3.976284.315 1956 Unknown [id number] 2.16.840.1.087653.3.579. 2.903 1956 Unknown [id number] 2.16.840.1.445046.3.579. 2.1069 1956 Unknown [id number] 2.16.840.1.380273.3.579. 2.9 1956 Unknown [id number] 2.16.840.1.962297.3.579. 2.1068 1956 Unknown [id number] 2.16.840.1.117586.3.579. 2.1068 1956 Unknown [id number] 2.16.840.1.948254.3.579. 2.1068 1956 Unknown [id number] 2.16.840.1.869507.3.579. 2.1068 1956 Unknown [id number] 2.16.840.1.468788.3.579. 2.1068 1956 Unknown [id number] 2.16.840.1.212943.3.579. 2.1068 1956 Unknown [id number] 2.16.840.1.526156.3.579. 2.1068 1956 Unknown [id number] 2.16.840.1.385429.3.579. 2.1068 1956 Unknown [id number] 2.16.840.1.907721.3.579. 2.1068 1956 Unknown [id number] 2.16.840.1.039675.3.579. 2.1068 1956 Unknown [id number] 2.16.840.1.605528.3.579. 2.1068 1956 Unknown [id number] 2.16.840.1.124609.3.579. 2.1068 1956 Unknown [id number] 2.16.840.1.758315.3.579. 2.1068 1956 Unknown [id number] 2.16.840.1.067177.3.579. 2.1068 1956 Unknown [id number] 2.16.840.1.158646.3.579. 2.1068 1956 Unknown [id number] 2.16.840.1.266379.3.579. 2.9 1956 Unknown [id number] 2.16.840.1.980229.3.579. 2.1068 1956 Unknown [id number] 2.16.840.1.477380.3.579. 2.1068 1956 Unknown [id number] 2.16.840.1.024338.3.579. 2.1068 1956 Unknown [id number] 2.16.840.1.411562.3.579. 2.1068 1956 Unknown [id number] 2.16.840.1.562222.3.579. 2.1068 1956 Unknown [id number] 2.16.840.1.254008.3.579. 2.1068 1956 Unknown [id number] 2.16.840.1.139974.3.579. 2.1068 1956 Unknown [id number] 2.16.840.1.520670.3.579. 2.1068 1956 Unknown [id number] 2.16.840.1.558055.3.579. 2.1068 1956 Unknown [id number] 2.16.840.1.654493.3.579. 2.594 1956 Unknown [id number] 2.16.840.1.293081.3.579. 2.594 1956 Unknown [id number] 2.16.840.1.859162.3.579. 2.594 1956 Unknown [id number] 2.16.840.1.890775.3.579. 2.594 1956 Unknown [id number] 2.16.840.1.828356.3.579. 2.651 Unknown [id number] 2.16.840.1.047549.3.579. 2.462 Unknown [id number] 2.16.840.1.020377.3.579. 2.462 Unknown [id number] 2.16.840.1.934484.3.579. 2.462 Unknown [id number] 2.16.840.1.794623.3.579. 2.462 Unknown [id number] 2.16.840.1.177357.3.579. 2.462 Unknown [id number] 2.16.840.1.386530.3.579. 2.462 Unknown [id number] 2.16.840.1.945477.3.579. 2.462 Unknown [id number] 2.16.840.1.213464.3.579. 2.462 Unknown [id number] 2.16.840.1.707531.3.579. 2.462 Unknown [id number] 2.16.840.1.339901.3.579. 2.462 Unknown [id number] 2.16.840.1.196791.3.579. 2.462 Unknown [id number] 2.16.840.1.971326.3.579. 2.462 Social History Date Type Detail Facility Start: 10-22-2015 End: 09-04-2023 Tobacco smoking status NHIS Never smoker [facility] Start: 10-22-2015 End: 05-14-2023 Alcohol intake Current non-drinker of alcohol (finding) [facility] Start: 1955 Sex Assigned At Not on file [facility] Start: 12-13-2021 End: 06-15-2022 Tobacco use and exposure Smokeless tobacco non-user [facility] Start: 1955 Sex Assigned At Female [facility] Start: 12-03-2021 End: 06-15-2022 Exposure to SARS-CoV-2 (event) Not sure [facility] Start: 01-28-2022 End: 06-22-2023 Tobacco smoking status ALIS Unknown if ever smoked [facility] Start: 05-11-2020 Non-smoker [facility] Start: 06-15-2022 Alcohol intake Lifetime non-d ko (finding) [facility] Start: 04-09-2023 End: 05-14-2023 History of Social function [facility] Start: 04-09-2023 End: 05-14-2023 Tobacco use panel [facility] National Score (1-10 0), lower number is lower risk 47 [facility] Start: 06-17-2019 Gender identity Identifies as female gender (finding) [facility] Start: 01-24-2022 Sexual orientation Choose not to dis close [facility] Start: 05-31-2023 End: 07-24-2023 Alcoholic beverage intake Current drinker of alcohol (finding) [facility] Start: 07-31-2024 End: 08-22-2024 Sex Female (finding) [facility] Medical Equipment Procedure Code Equipment Code Equipment [...] 2.4MM CORTEX SCREW SELF TAPPIN FDA Start: 01-06-2021 ORIF, fracture, wrist 2.4MM VA LCP DIS [...] serious difficulty hearing No 11/17/2014 2:21 PM Lynn Ventura LPN No [facility] 11-17-2014 Are you blind, or do you have serious difficulty seeing, even when wearing glasses No 11/17/2014 2:21 PM Lynn Ventura LPN No [facility] 11-17-2014 Do you have serious difficulty walking or climbing stairs No 11/17/2014 2:21 PM EDT Lynn Mendes LPN No [facility] 11-17-2014 Do you have difficul ty dressing or bathing No 11/17/2014 2:21 PM EDT Lynn Mendes LPN No [facility] 11-17-2014 Because of a physica l, mental, or emotional condition, do you have difficulty doing errands alone such as visiting a physician's office or shopping No 11/17/2014 2:21 PM EDT Lynn Mendes LPN No [facility] Mental Status Date Assessment Result Facility 05-30-2023 Cognitive function Voice/Name [facility] Work Phone: 11-17-2014 Because of a physica l, mental, or emotional condition, do you have serious difficulty concentrating, remembering, or making decisions No 11/17/2014 2:21 PM EDT Lynn Mendes LPN No [facility] Clinical Notes 12-13-2021 to 11-28-2024 Telephone Encounter - Linda Irvin RN - 08/12/2024 9:39 AM EDTTelephone Encounter - Linda Irvin RN - 08/12/2024 9:39 AM GEOVANNATZenobia Rodriguez MD - 08/11/2024 3:07 PM EDTMedications Note Date & Type Note Facility 11-28-2024 Radiology Diagnostic study note [facility] Imaging Services [address] [place] [address] [id number] Knee 4 or More Views MR#: [id number] Acct: [id number] Name: KAIA HALEY Rep #: [id number] : [id number] F 69 From: Simi Thomas MD PCP: Dr. Romeo Shankar MD Status: PRE E R Study:Knee 4 or More Views Date of Exam: 11/28/24 Exam# [id number] Ordering Dr: Geovanna Restrepo PROCEDURE: KNEE 4 OR MORE VIEWS 11/28/2024 [...] the sequelae of old injury. Reading Location: [id number] CC: Dr. Romeo Shankar MD; ED PHYSICIAN PROVIDER ~ Court Supervisor: Signed [facility] 09-26-2024 Note HNO ID: [id number] Author: ZENOBIA RODRIGUEZ MD Service: ? Author Type: Physician Type: Progress Notes Filed: 09/26/2024 08:38 Note Text: Back End Architect offered: Patient declines. Kaia is a 69 [...] results in 1-2 weeks. Zenobia Galdamez MD [facility] 09-23-2024 Note HNO ID: [id number] Author: SYLVIE WISE MD Service: ? Author Type: Physician Type: Progress Notes Filed: 09/23/2024 21:40 Note Text: The patient presents for requested ultrasound. Full report available in the Imaging tab in Epic. Sylvie Wise MD [facility] 08-12-2024 Telephone encounter Note Patient notified. Linda Irvin RN [facility] 08-12-2024 Miscellaneous Notes Patient notified. Linda Irvin RN Left message for patient to call office. Helen Milner RN Images from the original note were not included. Zenobia Rodriguez MD to [facility] Ob-Appraisal Specialist Pool 08/12/24 9:00 AM Result Note Please notify patient that her culture was positive for BV- I will treat with flagyl. She should still get pelvic ultrasound completed. KATHLEEN/TRICHOMONAS NAAT; BACTERIAL VAGINOSIS NAAT documented in this encounter [facility] 08-12-2024 Telephone encounter Note Left message for patient to call office. Helen Milner RN [facility] 04-08-2025 Telephone encounter Note Images from the original note were not included. Zenobia Rodriguez MD to [facility] Ob-Appraisal Specialist Pool 08/12/24 9:00 AM Result Note Please notify patient that her culture was positive for BV- I will treat with flagyl. She should still get pelvic ultrasound completed. KATHLEEN/TRICHOMONAS NAAT; BACTERIAL VAGINOSIS NAAT [facility] 08-11-2024 Note HNO ID: [id number] Author: ZENOBIA RODRIGUEZ MD Service: ? Author Type: Physician Type: Progress Notes Filed: 08/11/2024 15:51 Note Text: Back End Architect offered: Patient declines. Kaia Haley is a [...] Living2 SAB0 IAB0 Ectopic0 Multiple0 Live Births2 Appraisal Specialist History LMP: 05/07/2005, Postmenopausal Age at Menarche: Age at First : Age at Menopause: Appraisal Specialist History Comments: Sexual Activity: Not Asked; Male; [...] discussed with the Patient or Patient's Authorized Yam Curer. As applicable, any other physician, advance practice provider, medical student, or other health professional student that will be observing or involved in the sensitive examination for educational or training purposes was discussed with the Patient or Authorized Yam Curer. The Patient or Authorized Yam Curer has agreed to proceed with the sensitive [...] external genitalia normal, normal Bartholin's glands, urethra, [place]'s glands, no vulvar lesions, no cervical lesions, [...] Level: 4 - Moderate Zenobia Galdamez MD [facility] 08-11-2024 History of Present illness Narrative Back End Architect offered: Patient declines. Kaia Haley is a [...] Living2 SAB0 IAB0 Ectopic0 Multiple0 Live Births2 Appraisal Specialist History LMP: 05/07/2005, Postmenopausal Age at Menarche: Age at First : Age at Menopause: Appraisal Specialist History Comments: Sexual Activity: Not Asked; Male; [...] discussed with the Patient or Patient's Authorized Yam Curer. As applicable, any other physician, advance practice provider, medical student, or other health professional student that will be observing or involved in the sensitive examination for educational or training purposes was discussed with the Patient or Authorized Yam Curer. The Patient or Authorized Yam Curer has agreed to proceed with the sensitive [...] external genitalia normal, normal Bartholin's glands, urethra, [place]'s glands, no vulvar lesions, no cervical lesions, [...] Zenobia Galdamez MD documented in this encounter [facility] 07-22-2024 Radiology Diagnostic study note [facility] Imaging Services [address] [place], [place] [address] Abdomen/Pelvis without Cont MR#: [id number] Acct: [id number] Name: KAIA HALEY Rep #: [id number] : 1955 F 69 From: Johana Weems MD PCP: Dr. Romeo Shankar MD Status: REG C LAINE Study:Abdomen/Pelvis without Cont Date of Exa m: 07/22/24 Exam# [id number] Ordering Dr: Romeo Shankar MD PROCEDURE: ABDOMEN/PELVIS [...] 2. Additional description as above. Reading Location: [id number] CC: Dr. Romeo Shankar MD ~ Court Supervisor: Signed [facility] 07-22-2024 Radiology Diagnostic study note [facility] Imaging Services [address] [place], [place] [id number] L/S Spine Min 4 Views MR#: [id number] Acct: [id number] Name: KAIA HALEY Rep #: [id number] : 1955 F 69 From: Johana Alcantara MD PCP: Dr. Romeo Shankar MD Status: [facility] LAINE Study:L/S Spine Min 4 Views Date of Exam: 07/22/24 Exam# [id number] Ordering Dr: Romeo Shankar MD EXAM: XR [...] IMPRESSION: Degenerative changes as above. Reading [facility] CC: Dr. Romeo Shankar MD ~ Court Supervisor: Signed [facility] 06-01-2023 Emergency department Note ED Attending Has [...] as of 05/31/23 0436 Wed May 30, 2023 2237 [facility]. Stroke vs brain mass. Normal Exam. [facility] May 31, 2023 0435 Called to [...] continue to monitor. Lynn Shetty MD Resident 05/31/23 0436 37 yo F pt transferred to from [place] ER as a Level A hemorrhagic Stroke [...] with any further questions. Name: Kimberly Matias RPH Phone: [phone] Date/Time: 05/30/2023 9:34 PM DEPARTMENT OF EMERGENCY MEDICINE CHIEF COMPLAINT No chief complaint on file. [facility] Kaia Haley is a 67 y.o. female [...] Right Arm Motor (Provider) 0 filed on 05/30/2023 213 [facility] Left Leg Motor (Provider) 0 filed [...] made, however errors may still occasionally occur. DO Allan Rosales 05/30/23 1638 ED SW responded to hemorrhagic stroke. Pt is a transfer from [facility] Physicians medic #[id number], who reports spouse is aware of transfer, but will not be coming to [facility] ED tonight. Pt is alert and following commands appropriately at this time. Spouse's number for medical updates: Enmanuel Haley Spouse [phone] Pt also has her adult child listed: Mariely Tello Child [phone] SW to remain available for any additional needs. KUMAR Fernandez [phone] Addend: Son at bedside. Son denies any needs at this time. KUMAR Fernandez [phone] Bed: E036 Expected date: Expected time: Means of arrival: Comments: haley documented in this encounter [facility] 06-01-2023 Physician Emergency department Note ED Attending [...] our care. Hussain Limon MD 06/06/23 1106 [facility] Work Phone: 06-01-2023 Nurse Note Stroke patient education has been reviewed and all required elements are complete and personalized. Care plan documentation complete and patient adequate for discharge. Next dose medication details have been added to the AVS as appropriate. [facility] 06-01-2023 Miscellaneous Notes Stroke patient education has [...] navigate home and community. Outcome: Ongoing Problem: BUS COMPANY MANAGER - Cognition Goal: Memory: Strategy Training - [...] to improve functional independence Outcome: Ongoing Problem: BUS COMPANY MANAGER - Language Goal: Word Retrieval Strategies for [...] post hospitalization care will be discharge to [facility] . documented in this encounter [facility] 06-01-2023 Plan of care note Problem: PT [...] safely navigate home and community. Outcome: Ongoing [facility] 06-01-2023 Hospital course Narrative Images from the [...] during her recent hospital stay at [facility]. Kaia Haley is a 67 y.o. female [...] score of 0 and was evaluated by PT/OT/BUS COMPANY MANAGER who recommended ambulatory physical therapy, occupational therapy, [...] Value ICH Score (Calculated) 0 filed on 05/30/2023 2226 Modified [place] Scale Score Premorbid (MRSS) 0 filed on [...] Mild regurgitation. No stenosis. No evidence of tojca-dc-kfyh shunt with agitated saline contrast (NEGATIVE bubble study). Should you require further information or copies of results or reports please contact [employer] @ [phone] LABS AT TIME OF DISCHARGE: Lab Results [...] off on antiplatelets or anticoagulants given aden verde. Continue home rosuvastatin once daily. PATIENT'S MEDICAL HOME AT DISCHARGE: [employer] [facility] [place] [address] / [facility] [id number] DISCHARGE ORDERS AND MEDICATIONS: No [...] take each medicine. Include all prescription and hzmm-tos-jkurtua medicines, vitamins, and supplements. Keep this list [...] plan your refills so that you can supervisor opening and picking all your medicines at the same time. This can mean fewer trips to the drugstore. If we have prescribed you a new medication during your stay, please contact with your primary physician for refills FOLLOW-UP: Paulo Shankar MD [address] [facility] [phone] Go to An appoitnment has been scheduled [...] Schultz MD documented in this encounter [facility] 06-01-2023 Hospital Discharge instructions Ramonita Fragoso RN [...] may call your neurovascular doctors office at [phone], if you have questions between 8:30 am and 4:30 pm. - For off hours or the weekend you may call the office or the hospital nitric acid concentrator operator at and ask for the stroke resident pulmonary function technologist to be paged. - If you have any questions or needs, please call Ramonita UMAÑA RN, stroke asian studies program chair at [phone] Mon-Fri from 7-3. ? Any questions concerning your discharge instructions please call Case Management Office [phone] Patient Stroke Resources: [facility] Stroke Support The [facility] Stroke Support Group is for stroke survivors, friends, and family members. Meets on the Sunday of each month from 6:30pm-7:30pm at [facility] ([address]; [place] [address]). Contact Diana Dawkins, at [phone] or [email or web address]. If you are outside of the [place] area, contact The [place] [employer] at www.strokeassociation.org or 3-926-8-stroke, or for supports groups in your area. You may also refer to the Stroke Education booklet you received as part of your stroke education while you were a patient for additional resources. Additional Contacts: Evening and Weekend Contacts If you have questions or concerns during evening, weekend, or holiday hours, please call: -[facility] nitric acid concentrator operator at [phone]. -[facility] nitric acid concentrator operator at [phone] Ask the nitric acid concentrator operator to page the on-call doctor for [...] Other reference numbers: [facility] Intake Office at [phone]; [employer] at 601-939-4677; or Suicide Prevention Hotline at 502-800-5490. *Helpful phone numbers: Free Crisis Hotline: 2-086-852-TALK ( ) Suicide Hotline: 312.318.5189 Seniors Suicide Hotline: 287.273.9804 [facility] Youth: 657.456.4897 Mental Health of [place]: [phone] (free counseling) [employer] Access Hotline: 881-059-ADLV (729-654-7056) 24-hour crisis text hotline: Text the word 4hope to 512-890 for crisis support. Texting this number is [...] you may qualify for Medicaid/public assistance: The [facility] Department of Job and Family Services can now process [place] (TANF), food (SNAP) and Medicaid Applications over the phone. Please call 0-770-152-[place] (9927) and apply over the phone or apply online at www.benefits.[place].gov. Sunday-Sunday 8am-12pm noon. Medication Assistance Programs [employer] members can buy 100+ common prescriptions for FREE, $3 or $6. Annual membership is $36 for individuals and $72 for families (up to 6 people, including pets). Sign up online or enroll at your nearest pharmacy! -[employer], web site can provide a significant number of coupons for medications at a much lower velasquez. SQUEZ Pinedo - 06/01/2023 1:49 PM EST Know your medicines Make sure you know why you are taking each medicine. Make a master list of all your medicines. Write down the medicine names and doctors' names. Include doses and side effects too. And write down why you take each medicine. Include all prescription and yzix-gzf-xzuntaw medicines, vitamins, and supplements. Keep this list [...] plan your refills so that you can supervisor opening and picking all your medicines at the same time. [...] risk for women versus 6% for men. SQUEZ Madsen MD - 06/01/2023 1:50 PM EST [...] or chills documented in this encounter [facility] 06-01-2023 History of Present illness Narrative Stroke [...] math. 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 She has had headache for the last 4 days. At the Outside hospital [place] Emergency Room CT brain showed a right [...] Name and Contact information: Enmanuel Vivar - [phone] Adult Child(bra[place]), List All Adult Children: Yes Name and Contact information: Mariely Guthrieco - [phone] Would you like to add additional adult children?: Yes Name and Contact information: Cary Sudha - [phone] Outpatient Providers Does patient have a primary [...] Is the patient from a facility or detention?: No Patient lives with: Spouse or Partner [...] Is the patient on Anticoagulation? : No [id number] [place] [address] [address] [facility] [place] [address] [facility] [address] Executive Coach Does the patient or sales representative supervisor express financial concerns? : No Employed?: Retired Coping/Stress Concerns about patient s coping and stress?: No Concerns about patient s caregiver s coping and stress?: No Values and Beliefs Cultural or yazdanism practices that may impact discharge planning and/or [...] wanted to established care with Dr Paulo Shankar. CM reached out to Dr Shankar's office [...] provided to patient at discharge. CAYDEN Villalpando, SAFETY PHYSICIAN Meter Tester Primary Available by Secure Chat Acute Care Speech-Language Pathology Note Received consult for swallow evaluation. However, pt passed [place] Swallow Screening by nursing. Swallow eval by BUS COMPANY MANAGER will not be completed at this time unless this service notified of change in status or re-consult for swallow eval placed. BUS COMPANY MANAGER to proceed with speech/language/cognitive evaluation per order. Thank you. No charge Melony Jurado M.S. [facility]-BUS COMPANY MANAGER Speech-Language Pathologist License Number [id number] Pager: Available on Secure Chat Acute Care BUS COMPANY MANAGER Speech/Language/Cognitive Evaluation Best mode of Communication: spoken language (regular speech) Communication Strategies: - Decrease distractions - Write down important information for improved recall Discharge Recommendations: Based on the below outcome measures/assessment score(s) and BUS COMPANY MANAGER clinical judgment, discharge destination recommendation is: Home with Outpatient Rehab Services addressing cognitive-communication deficits. Barriers to discharge home: Cognitive impairments that impact safety and independence Supporting factors for discharge setting: Impaired cognitive skills limiting safety/insight, Impaired cognitive skills limiting functional problem solving in immediate environment, Impaired cognitive skills limiting independence Acute BUS COMPANY MANAGER Outcomes Tracking Communicate basic wants and needs?: [...] was not observed this date - though BUS COMPANY MANAGER to monitor. These deficits result in functional limitations in ability to interact with her home environment independently and safely to [facility]. Skilled speech therapy services warranted during admission and at discharge. Patient Instruction/Education this session: Role of BUS COMPANY MANAGER, recommendation for treatment during admission and upon [...] occult malignancy work-up negative thus far. Prior BUS COMPANY MANAGER History: None per chart review and pt interview. 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 Pt enjoys playing [employer]onya Labs[employer] and meeting friends for dinners. Respiratory Status: O2 Sat (%): 96 % (06/01 1209) O2 Device: room air (06/01 1057) EXPRESSIVE LANGUAGE: Intact (Pt reporting word-finding difficulty in conversation, which was not noted in today's assessment. BUS COMPANY MANAGER to monitor) Task: Imitates Gestures Intact Automatic [...] 0 Asthenia (A): 0 Strain (S): 0 BUS COMPANY MANAGER Outcomes: BUS COMPANY MANAGER Outcomes / Standardized Measures Score The Orientation [...] response, or unable to respond. Patient scored this . The Cognitive Log (Cog-Log) is designed to [...] graphed for quick reference. Patient scored this . Orientation [place]: correct spontaneously or upon [...] Reversed: one error 30 Seconds: 25-35 seconds Oocf-Cjjf-Hcwz: three correct repetitions Go / No-Go: correct response on each trial Address Recall: partial spontaneous recall Total Score: 24 Acute BUS COMPANY MANAGER Goals Plan of Care by NASRA Amado at 06/01/2023 10:57 AM Version 1 of 1 Problem: BUS COMPANY MANAGER - Cognition Goal: Memory: Strategy Training - [...] to improve functional independence Outcome: Ongoing Problem: BUS COMPANY MANAGER - Language Goal: Word Retrieval Strategies for Conversation - Patient will state and/or demonstrate understanding of trained strategies targeting anomia with no more than set-up cues to use strategies during functional conversation to reduce communication breakdowns Outcome: Ongoing BUS COMPANY MANAGER Co-Eval/Treatment Information Co-evaluation/co-treatment performed?: No simultaneous skilled care performed Speech Language Pathologist: ANSRA Amado Time In: 1057 Time Out: 1136 Total Visit Time: 39 minutes Total Treatment Time (skilled, billable minutes): 39 minutes Additional Session Details Assisted by during session: n/a Non-billable assistance during session: n/a PPE used during patient interaction: facemask Patient location/status at end of session: chair Patient alarms at end of session: none altered Needs in reach. BUS COMPANY MANAGER Evaluation and Treatment Time Speech Eval - Sound Production W/Lang Comp and Exp 02185: 39 Upon discontinuation of Acute Care Speech [...] on. IADL History IADLs: independent Primary Language: [place]an Home Management Skills: independent Medication Management: independent [...] training LE Dressing Intervention/Details: Pt provided with toxics program officer and sock aide Toilet Assistance: Stand by [...] female) Mobility Assessment: Supine to Sit Mobility [place] Level: Supine->Sit: not tested (Receievd up inc hair) Transfer Assessment: Sit to Stand Transfer [place] Level: Sit->Stand: stand-by assist Physical Assist: Sit->Stand: (1 person) Assistive Device: Sit->Stand: gait belt, armed chair Skilled Rationale: Positioning, Hand placement, Verbal cues Skilled Intervention/Details: Sit->Stand: Increased time with transition Stand to Sit Transfer [place] Level: Stand->Sit: stand-by assist Physical Assist: Stand->Sit: (1 person) Assistive Device: Stand->Sit: gait belt, armed chair Skilled Rationale: Hand placement Functional Mobility: Functional Mobility [place] Level: Functional Mobility/Gait: stand-by assist Physical Assist: [...] currently uses wheelchair?: No Outcome Score(s): CURRENT [facility] Daily Activity Inpatient Short Form Putting on/Taking Off Lower Body Clothin - A Little Assistance Bathin - A Little Assistance Toiletin - A Little Assistance Putting on/Taking Off Upper Body Clothin - No Assistance Groomin - No Assistance Eatin - No Assistance CURRENT [facility] Activity Raw Score: 21 CURRENT -[facility] Activity Functional Limitation/Modifier: 32.79% Currently Impaired [...] of adaptive equipment with ADL's (OT provided Insurance Policy Issue Clerk/long shoe horn and sock aide) 3. 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 Pt reports recent visits to PT [...] and found herself off the side of [address]. Pt agrees that /daughter should and [...] balance. Transfer Assessment: Sit to Stand Transfer [place] Level: Sit->Stand: stand-by assist Assistive Device: Sit->Stand: gait belt Skilled Rationale: Verbal cues, Hand placement Skilled Intervention/Details: Sit->Stand: SBA for sit to stand. Verbal cues provided for hand placement. Stand to Sit Transfer [place] Level: Stand->Sit: stand-by assist Assistive Device: Stand->Sit: gait belt Skilled Rationale: Verbal cues, Controlled descent for sitting Skilled Intervention/Details: Stand->Sit: SBA for stand to sit. verbal cues for controlled descent. Gait/Functional Mobility: Gait Assessment [place] Level: Gait: stand-by assist Assistive Device: Gait: gait belt Ambulation Distance (Feet): 200 Gait Deviations Identified: left (decreased LLE foot clearance) Gait Skilled Rationale: verbal, increase foot clearance Skilled Intervention/Details - Gait: verbal cues provided for increase in LLE foot clearance. pt needed assist for identification of slight LLE foot drag. Initial improvement noted with cues. No LOB throughout ambulation. Stairs: Stairs Assessment [place] Level: Stair Negotiation: contact guard assist Assistive Device: Stair Negotiation: gait belt, right rail (ascending) Number of stairs: 10 Stairs Skilled Rationale: verbal, nonreciprocal pattern Skilled Intervention/Details - Stairs: pt educated on nonreciprocal pattern for pain management and safety. Outcome Score(s): CURRENT [facility] Basic Mobility Inpatient Short Form Turning over in bed: 4 - No Assistance Sitting/standing from chair: 3 - A Little Assistance Moving from lying on back to sittin - No Assistance Moving to and from bed to chair: 3 - A Little Assistance Walk in hospital room: 3 - A Little Assistance Climbing 3-5 steps with a railin - A Little Assistance CURRENT [facility] Mobility Raw Score: 20 CURRENT [facility] Mobility Functional Limitation/Modifier: 35.83% Currently Impaired in Basic Mobility - CJ Interventions: Assessment & Plan: Patient was admitted for Acute [facility] (per chart review) and seen for therapy [...] Treatment Time PT Evaluation (Moderate) Time Entry: 25 Evaluating Therapist: Ilana Kirkpatrick Student PT Additional [...] Hemorrhage Note IDENTIFYING INFORMATION Kaia Haley MR# [id number] 05/31/2023 HISTORY OF PRESENT ILLNESS Kaia Haley [...] or hemoptysis. INTERVAL HISTORY 05/30: Admitted to [facility]. Neurosurgery consulted. Ordered malignancy screen with CT [...] Intracerebral Hemorrhage Score Intracerebral Hemorrhage (ICH) Scale Asim Coma Scale Points: 0-->GCS 13-15 Age>/=80: 0-->no [...] NG tube Daily documented in this encounter [facility] 06-01-2023 Plan of care note Problem: BUS COMPANY MANAGER - Cognition Goal: Memory: Strategy Training - [...] to improve functional independence Outcome: Ongoing Problem: BUS COMPANY MANAGER - Language Goal: Word Retrieval Strategies for Conversation - Patient will state and/or demonstrate understanding of trained strategies targeting anomia with no more than set-up cues to use strategies during functional conversation to reduce communication breakdowns Outcome: Ongoing [facility] 06-01-2023 Plan of care note Problem: OT [...] IADLs, and functional mobility tasks. Outcome: Ongoing [facility] 06-01-2023 Plan of care note [...] questions. Issac Toledo MD, Neurosurgery NS2 ([phone]) [facility] Work Phone: 05-31-2023 Consult note [...] math. 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 She has had headache for the last 4 days. At the Outside hospital [place] Emergency Room CT brain showed a right [...] fellow clinic after MRI. Alyssa Schultz MD [facility] 05-31-2023 Consult note Formatting of th is [...] math. 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 She has had headache for the last 4 days. At the Outside hospital [place] Emergency Room CT brain showed a right [...] Consult:hemorrhagic mass versus intraparenchymal hemorrhage, small SAHContact Number:[id number] [facility] Ms. Kaia Haley is a 67 [...] 0.9% w/potassium cl 75 mL/hr at 05/30/23 2257 Scheduled Meds [START ON 05/31/2023] Levothyroxine 50 [...] NS2 ([id number]) ## neurosurgery coverage changes at 0530/1730; if 0530 or 1730 has passed since [...] Scale NIH Interval (Provider) admission filed on 05/30/2023 213 NIH Level of Conciousness (Provider) 0 filed on 05/30/2023 213 NIH LOC Questions (Provider) 0 filed on 05/30/2023 2132 NIH LOC Commands (Provider) 0 filed on 05/30/2023 2132 NIH Best Gaze (Provider) 0 filed on 05/30/2023 213 NIH Visual (Provider) 0 filed on 05/30/2023 213 NIH Facial Palsy (Provider) 0 filed on 05/30/2023 2132 NIH Left Arm Motor (Provider) 0 filed on 05/30/2023 2132 NIH Right Arm Motor (Provider) 0 filed on 05/30/2023 2132 NIH Left Leg Motor (Provider) 0 filed on 05/30/2023 2132 NIH Right Leg Motor (Provider) 0 filed on 05/30/2023 2132 NIH Limb Ataxia (Provider) 0 filed on 05/30/2023 2132 NIH Sensory (Provider) 0 filed on 05/30/2023 213 NIH Best Language (Provider) 0 filed on 05/30/2023 213 NIH Dysarthria (Provider) 0 filed on 05/30/2023 2132 NIH Extinction and Inattention (Provider) 0 filed on 05/30/2023 2132 NIH Total Score (Provider) 0 filed on 05/30/20232131 Is NIH=0 Within 180 min of Last Known Well Time? -- Stroke Scales Flowsheet Row Most Recent Value ICH Score (Calculated) 0 filed on 05/30/20232225 Modified [place] Scale Score Premorbid (MRSS) 0 filed on [...] tablet 325 mg 325 mg Oral Q4H PRLeonides Montelongo MD Or Acetaminophen (TYLENOL) tablet 325 mg 325 mg Per NG tube Q4H PRLeonides Montelongo MD Or Acetaminophen (TYLENOL) tablet 650 mg 650 mg Oral Q4H PRN Hernesto Montelongo MD Or Acetaminophen (TYLENOL) tablet 650 mg 650 mg Per NG tube Q4H PRLeonides Montelongo MD hydrALAZINE (APRESOLINE) injection 10 mg 10 mg Intravenous Q1H PRN Hernesto Montelongo MD Or hydrALAZINE (APRESOLINE) injection 20 mg 20 mg Intravenous Q1H PRLeonides Montelongo MD Labetalol (NORMODYNE) injection 10 mg 10 mg Intravenous Q1H PRN Hernesto Montelongo MD Or Labetalol (NORMODYNE) injection 20 mg 20 mg Intravenous Q1H PRLeonides Montelongo MD [START ON 05/31/2023] Levothyroxine (SYNTHROID) [...] no drift Left Leg: no drift Coordination: Yqxeow-sp-pjox intact bilaterally. Ymjj-bf-njaj intact bilaterally. Rapid alternating movements are normal. Sensation: intact to light touch throughout without extinction. Gait: Deferred Laboratory Results Diagnostics/Procedures: Labs-CBC WBC/Hgb/Hct/Plts: 6.54/12.6/38.6/231 (05/30 2150) Labs-Chem 7([facility]) Bun/Creat/Cl/CO2/Glucose: 13/0.80/105/26/96 (05/30 2150) Na/K+/Phos/Mg/Ca: 137/3.7/3.5/2.1/8.5 (05/30 2150) Labs-Coags Ptt/Pt/Inr: 30.9/13.6/1.1 (05/30 2150) Additional Labs No results found for: CHOLESTEROL, TRIG, HDL, LDLCALC, LDLDIRECT Labs-Hemoglobin A1C No results found for: HGBA1C Imaging Imaging was not analyzed by [facility] CT Stroke Head: R frontal IPH [...] ED. Continuous telemetry -PT, OT, Speech and high school social studies tutor consults Other problems: Complexity. Obesity Body mass [...] questions, please contact the neurovascular team resident pulmonary function technologist listed on [employer]. The author of this note does not necessarily reflect the individual pulmonary function technologist. Please page the on-call resident with urgent questions, as [facility] Secure Chat is not a reliable method for urgent needs. Signed, Hernesto Montelongo MD PGY-2, Neurology documented in this encounter [facility] 05[facility]31[facility]2023 [facility] RN initial assessment of skin condition was performed by Ignacia Humphreys RN and Mariana SANCHEZ. Skin Assessment: Skin within defined limits:Yes Diogo Score: 21 LDA Added:No Ignacia Humphreys RN [facility] 05-31-2023 Physician Emergency department Note Received on sign out Vitals: 05/31/23 0400 BP: 128/61 Pulse: 80 Resp: 23 Temp: SpO2: 95% ED Course as of 05/31/23435May 30, 2023 2237 Admit to neurovasc PCU. Stroke vs brain mass. Normal Exam. [facility] May 31, 2023434 Called to room for an episode of n/v and reported SOB. The patient told me the SOB resolved after vomiting. She denies any abnormal intraoral swelling or other odd sensation. Breathing unlabored. Speaking appropriated. No oral swelling. No stridor. Lungs CTAB. HR and SpO2 normal. Will order a dose of Zofran and continue to monitor. Lynn Shetty MD Resident 05/31/23435 [facility] Work Phone: 05-30-2023 Consult note Formatting of th is note is different from the original. Neurosurgery Consult Note Reason for Consult:hemorrhagic mass versus intraparenchymal hemorrhage, small SAHContact Number:[id number] [facility] Ms. Kaia Haley is a 67 [...] 0.9% w/potassium cl 75 mL/hr at 05/30/23 3735 Scheduled Meds [START ON 05/31/2023] Levothyroxine 50 [...] neurosurgery perspective - admission to neurovascular Staff: Back Covering: NS2 ([id number]) ## neurosurgery coverage changes at 529/1729; if [...] making with the following comment(s): none . [facility] Work Phone: 05-30-2023 Note Acute Coronary Syndr ome (ACS): Initial Evaluation and Management: [email or web address] [facility] 05-30-2023 Note Formatting of this n ote might be different from the original. I recertify that this patient requires inpatient services at this time. Inpatient services are due to the following medical concerns brain bleed. Plans for post hospitalization care will be discharge to [facility] . [facility] 05-30-2023 Consult note Formatting of [...] Scale NIH Interval (Provider) admission filed on 05/30/2023 213 NIH Level of Conciousness (Provider) 0 filed on 05/30/2023 2132 NIH LOC Questions (Provider) 0 filed on 05/30/2023 2132 NIH LOC Commands (Provider) 0 filed on 05/30/2023 213 NIH Best Gaze (Provider) 0 filed on 05/30/2023 2132 NIH Visual (Provider) 0 filed on 05/30/2023 2132 NIH Facial Palsy (Provider) 0 filed on 05/30/2023 2132 NIH Left Arm Motor (Provider) 0 filed on 05/30/2023 2132 NIH Right Arm Motor (Provider) 0 filed on 05/30/2023 2132 NIH Left Leg Motor (Provider) 0 filed on 05/30/2023 2132 NIH Right Leg Motor (Provider) 0 filed on 05/30/2023 2132 NIH Limb Ataxia (Provider) 0 filed on 05/30/2023 2132 NIH Sensory (Provider) 0 filed on 05/30/2023 2132 NIH Best Language (Provider) 0 filed on 05/30/2023 2132 NIH Dysarthria (Provider) 0 filed on 05/30/2023 2132 NIH Extinction and Inattention (Provider) 0 filed on 05/30/20232131 NIH Total Score (Provider) 0 filed on 05/30/20232131 Is NIH=0 Within 180 min of Last Known Well Time? -- Stroke Scales Flowsheet Row Most Recent Value ICH Score (Calculated) 0 filed on 05/30/20232225 Modified [place] Scale Score Premorbid (MRSS) 0 filed on [...] tablet 325 mg 325 mg Oral Q4H PRLeonides Montelongo MD Or Acetaminophen (TYLENOL) tablet 325 mg 325 mg Per NG tube Q4H PRLeonides Montelongo MD Or Acetaminophen (TYLENOL) tablet 650 mg 650 mg Oral Q4H PRLeonides Montelongo MD Or Acetaminophen (TYLENOL) tablet 650 mg 650 mg Per NG tube Q4H PRLeonides Montelongo MD hydrALAZINE (APRESOLINE) injection 10 mg 10 mg Intravenous Q1H PRLeonides Montelongo MD Or hydrALAZINE (APRESOLINE) injection 20 mg 20 mg Intravenous Q1H PRLeonides Montelongo MD Labetalol (NORMODYNE) injection 10 mg 10 mg Intravenous Q1H PRLeonides Montelongo MD Or Labetalol (NORMODYNE) injection 20 mg 20 mg Intravenous Q1H PRLeonides Montelongo MD [START ON 05/31/2023] Levothyroxine (SYNTHROID) [...] no drift Left Leg: no drift Coordination: Sskzsi-mu-hpyp intact bilaterally. Gsgn-eq-lluc intact bilaterally. Rapid alternating movements are normal. Sensation: intact to light touch throughout without extinction. Gait: Deferred Laboratory Results Diagnostics/Procedures: Labs-CBC WBC/Hgb/Hct/Plts: 6.54/12.6/38.6/231 (05/30 2150) Labs-Chem 7([facility]) Bun/Creat/Cl/CO2/Glucose: 13/0.80/105/26/96 (05/30 2150) Na/K+/Phos/Mg/Ca: 137/3.7/3.5/2.1/8.5 (05/30 2150) Labs-Coags Ptt/Pt/Inr: 30.9/13.6/1.1 (05/30 2150) Additional Labs No results found for: CHOLESTEROL, TRIG, HDL, LDLCALC, LDLDIRECT Labs-Hemoglobin A1C No results found for: HGBA1C Imaging Imaging was not analyzed by [facility] CT Stroke Head: R frontal IPH [...] ED. Continuous telemetry -PT, OT, Speech and high school social studies tutor consults Other problems: Complexity. Obesity Body mass [...] questions, please contact the neurovascular team resident pulmonary function technologist listed on [employer]. The author of this note does not necessarily reflect the individual pulmonary function technologist. Please page the on-call resident with urgent questions, as [facility] Secure Chat is not a reliable method for urgent needs. Signed, Hernesto Montelongo MD PGY-2, Neurology [facility] 05-30-2023 Emergency department Note 37 yo F pt transferred to from [place] ER as a Level A hemorrhagic Stroke Alert. Pt has been feeling fuzzy for 2-3 weeks and family finally convinced pt to come to ER. CTH at OSH showed subacute bleed. Pt arrives to CT scanner w/ ER and neurovasc teams at bedside. A&Ox4, VSS [facility] 05-30-2023 Emergency department Note Department [...] with any further questions. Name: Kimberly Matias RPH Phone: [phone] Date/Time: 05/30/2023 9:34 PM [facility] Work Phone: 05-30-2023 Physician Emergency department Note [...] occasionally occur. Julia Davis DO Resident 05/30/23 7332 [facility] Work Phone: 05-30-2023 Emergency department Note ED SW responded to hemorrhagic stroke. Pt is a transfer from [facility] Physicians medic #[id number], who reports spouse is aware of transfer, but will not be coming to [facility] ED tonight. Pt is alert and following commands appropriately at this time. Spouse's number for medical updates: Enmanuel Haley Spouse [phone] Pt also has her adult child listed: Mariely Tello Child [phone] SW to remain available for any additional needs. KUMAR Fernandez [phone] Addend: Son at bedside. Son denies any needs at this time. KUMAR Fernandez [phone] [facility] 05-30-2023 Emergency department Note Bed: E036 Expected date: Expected time: Means of arrival: Comments: sduha [facility] 04-09-2023 Instructions Martha Bailey, MAYITO - 04/09/2023 10:25 AM EST ASSESSMENT/PLAN: 1. [...] wearing most comfortable. documented in this encounter [facility] 04-09-2023 History of Present illness Narrative ASSESSMENT/PLAN: [...] month for CL check wearing most comfortable. Mratha Bailey, MAYITO I have confirmed and edited as necessary the relevant ophthalmic history, ROS, and the neuro exam findings as obtained by others. I have seen and examined this patient. documented in this encounter [facility] 09-01-2022 History of Present illness Narrative Patient [...] supervision of Zoya Schmitz PTA. [facility] Work Phone: 06-15-2022 Physician Emergency department Note Emergency Department Report [facility] EMERGENCY DEPARTMENT Service Date:.06/16/22 PCP: [...] endometriosis. She did not take any medication jrwy-dlw-mycsypl for symptomatic relief. Review of Systems: Review [...] YELLOW YELLOW APPEARANCE, URINE CLEAR CLEAR Specific [place], Urine >1.030 (H) 1.010 - 1.025 PH [...] . . Obed Hull MD 06/16/22 0059 [facility] 06-15-2022 Emergency department Note Emergency Department Report [facility] EMERGENCY DEPARTMENT Service Date:.06/16/22 PCP: [...] endometriosis. She did not take any medication rnpt-lau-kwvhewt for symptomatic relief. Review of Systems: Review [...] YELLOW YELLOW APPEARANCE, URINE CLEAR CLEAR Specific [place], Urine >1.030 (H) 1.010 - 1.025 PH [...] MD 06/16/22 0059 documented in this encounter [facility] 04-27-2022 Miscellaneous Notes faxed [facility] doing a follow up call as they faxed mammography release on 04/20 requesting reports and have not received them advised to fax release again. documented in this encounter [facility] 03-07-2022 Instructions Breonna Juarez PA-C - 03/07/2022 2:05 PM EDT Recc: Tea Tree oil face wash ([employer]) Warm compresses to affected lids(s) 15 min twice daily. (Can try Summer mask, found on [employer] or at drug RPO), followed by lid scrubs twice daily with dilute baby shampoo. Return precautions given. Follow up as needed documented in this encounter [facility] 03-07-2022 History of Present illness Narrative Still [...] daily. (Can try Summer mask, found on [employer] or at drug stores), followed by lid [...] 2022 2:04 PM documented in this encounter [facility] 02-07-2022 Instructions Jonah Farley APRN.TEODORO - 02/07/2022 1:59 PM EDT Discussed course of chalazion/stye Can have waxing/waning course, can have others Plugged oil glands-->inflammation ball Discussed intralesional kenalog vs medical mgmnt Patient elects: medical management Recc: Tea Tree oil face wash ([employer]) Warm compresses to affected lids(s) 15 min twice daily. (Can try Summer mask, found on [employer] or at drug RPO), followed by lid scrubs twice daily with dilute baby shampoo. Maxitrol ointment (or drop) to affected eyes(s) twice daily x 2 weeks. Discussed risk of developing cataracts or glaucoma with long-term use. Discussed risk of infection with concomitant use of CLs. Return precautions given. Follow up in 4-6 weeks if not resolved, possible further treatment. documented in this encounter [facility] 02-07-2022 History of Present illness Narrative Patient [...] management Recc: Tea Tree oil face wash ([employer]) Warm compresses to affected lids(s) 15 min twice daily. (Can try Summer mask, found on [employer] or at drug RPO), followed by lid scrubs twice daily with [...] all of its relevant components. 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 Mccollum's group. Appointment made. I have confirmed and edited as necessary the relevant ophthalmic history, ROS, and the neuro exam findings as obtained by others. I have seen and examined Kaiamoiz Haley. I have discussed the case and the management of this patient's care with the Resident/Fellow, if applicable. I also have reviewed and agree with the assessment and plan as stated above and agree with all of its relevant components. Yobani Bailey II, OD documented in this encounter [facility] 01-12-2022 Instructions Martha Bailey OD - 01/12/2022 [...] as 2 weeks. documented in this encounter [facility] 01-12-2022 History of Present illness Narrative ASSESSMENT/PLAN: [...] the emergency room. Return as 2 weeks. Matrha Bailey, MAYITO I have confirmed and edited as necessary the relevant ophthalmic history, ROS, and the neuro exam findings as obtained by others. I have seen and examined this patient. documented in this encounter [facility] 12-13-2021 Instructions Georgina Jordan MA - 12/13/2021 [...] contact the office. documented in this encounter [facility] 12-13-2021 History of Present illness Narrative Kaia [...] L2 SAB0 IAB0 Ectopic0 Multiple0 Live Births2 Appraisal Specialist History LMP: 05/07/2005, Postmenopausal Age at Menarche: Age at First : Age at Menopause: Appraisal Specialist History Comments: Sexual Activity: Not Asked; Male; [...] external genitalia normal, normal Bartholin's glands, urethra, [place]'s glands, no vulvar lesions, no cervical lesions, good vaginal support, physiologic discharge present, normal appearing perineal body and perianal region, cystocele 2nd degree BIMANUAL: uterus normal size, shape and consistency, no adnexal masses, and non-tender NEURO: alert and oriented x3,exam grossly non-focal EXTREMITIES: normal ASSESSMENT/PLAN: 1. Post-menopausal bleeding - ICD9: 627.1, ICD10: N95.0 (primary diagnosis) - PELVIC US WHI - ENDOMETRIAL BIOPSY - SURGICAL PATHOLOGY 2. Abnormal uterine bleeding (AUB) - ICD9: 626.9, ICD10: N93.9 3. Encounter for screening for malignant neoplasm of cervix - ICD9: V76.2, ICD10: Z12.4 - Completed pap exam - PAP FLUID CERVICAL SCREENING Will notify patient of pelvic ultrasound and EMB results Piper Rahman APRN.ANJU Jones spent a total of 40 minutes on the date of the service which included preparing to see the patient, jdlz-pk-yrbu patient care, completing clinical documentation, obtaining and/or reviewing separately obtained history, performing a medically appropriate examination, counseling and educating the patient/family/caregiver, and ordering medications, tests, or procedures Medical Decision Making: Medical Decision Making Level: 1 - N/A Piper Rahman APRN.JAZZSarah Marti is a 66 year old Female who [...] Piper Rahman APRN.CNM documented in this encounter [facility] Evaluation note Diagnosis Post-menopausal bleeding- Primary Postmenopausal bleeding Abnormal uterine bleeding (AUB) Encounter for screening for malignant neoplasm of cervix Screening for malignant neoplasm of the cervix [facility] [place] [facility] Diagnosis PMB (postmenopausal bleeding)- Primary Postmenopausal bleeding [facility] [place] [facility]* Diagnosis Hordeolum externum of right upper eyelid- Primary Hordeolum externum [facility] [place] [facility] Diagnosis Benign neoplasm of skin of right upper eyelid- Primary [facility] [place] noteNo assessment information availableWVan [facility]ert [facility] Work Phone: Evaluation note* Diagnosis Chalazion of right upper eyelid- Primary Chalazion [facility] [place] [facility]* Diagnosis Chalazion right upper eyelid- Primary [facility] [place] [facility]* Diagnosis Pain of upper abdomen- Primary Abdominal pain, other specified site Nausea Nausea alone [facility] Diagnosis Hyperopia of both eyes- Primary Regular astigmatism of both eyes Regular astigmatism Presbyopia - Both Eyes Presbyopia [facility] [place] [facility]* Diagnosis Onset Date Resolution Status Back pain acute Bilirubinuria acute Confusion acute Spinal stenosis acute Urinary frequency acute [facility] Work Phone: Evaluation note* Diagnosis Brain bleed- Primary Intracerebral hemorrhage Brain bleed Intracerebral hemorrhage Cerebrovascular accident (CVA), unspecified mechanism [facility] Brain bleed Intracerebral hemorrhage [facility] Diagnosis PMB (postmenopausal bleeding)- Primary Postmenopausal bleeding Vaginal irritation Unspecified noninflammatory disorder of vagina Encounter for screening for malignant neoplasm of cervix Screening for malignant neoplasm of the cervix [facility] [place] [facility]* Diagnosis Bacterial vaginitis- Primary Vaginitis and vulvovaginitis, unspecified [facility]* Present C/C sx [...] range of motion/joint mobility and strength. [facility] Work Phone: History of Present illness [...] . * Response to treatment: decreased pain. [facility] Work Phone: History of Present illness [...] . * Response to treatment: decreased pain. [facility] Work Phone: Hisleal of Present illness NarrativePatient tolerated treatment without increased pain. Patient has Fair TrA and keeps intact with ther-ex. Patient needing one UE support with LE ther-ex and no UE support with 100% unloading. Patient has good form/understanding with ther-ex and keeps body in good alignment. Added abdominals ther-ex to program. Continue with core stability while performing dyn activity to decrease back pain.[facility] Work Phone: History of Present illness Narrative* Patient needs cues for correct form and encouragement throughout PRE. * Added hip IR d/t excessive ER in B LE; L >R. * Cues to IR the hips during side steps d/t compensations. * Good technique with pelvic tilt in supine. * Continues with tightness to the R during LTR. * Guard with transfers. [facility] Work Phone: History of Present illness Narrative* [...] to complete today's treatment with some difficulty. [facility] Work Phone: History of Present illness Narrative* [...] to complete today's treatment with some difficulty. [facility] Work Phone: History of Present illness Narrative* [...] to complete today's treatment with some difficulty. [facility] Work Phone: History of Present illness Narrative* [...] complete today's treatment with some difficulty. [facility] Work Phone: History of Present illness Narrative* Cues to relax [...] to complete today's treatment with some difficulty. [facility] Work Phone: History of Present illness Narrative* Improved glute strength progression as able. * Improved ability to complete transfers with decreased guarding. * Improved core activation for standing DLS. * Response to treatment: decreased pain, decreased muscle guarding and improved posture. * Patient was able to complete today's treatment with some difficulty. [facility] Work Phone: History of Present illness Narrative* [...] to complete today's treatment with some difficulty. [facility] Work Phone: History of Present illness Narrative* [...] complete today's treatment with some difficulty. [facility] Work Phone: History of Present illness Narrative* arrives to outpatient PT c/o . Pt presents with the following impairments: . These impairments contribute to difficulty in activity limitations and participation restrictions including . Thept s signs and symptoms are consistent with likely . The pt will benefit from skilled PT tohlvsvg6p/week for 8 weeks to address the above stated impairments and functional limitations to maximize p articipation and ease in household, social, and work related activities. The pt has a prognosis when considering positive factors including with barriers such as . The pt verbalized understanding and agreement to goals and POC. Thank you for this referral and please call [phone] with any questions or concerns. * Clinical Presentation: Stable and/or uncomplicated characteristics. * Level of Complexity: low * Problem List: activity limitations, ADLs/IADLs/self care skills, decreased knowledge of HEP, flexibility, gait/locomotion, pain, participation restrictions, range of motion/joint mobility and strength. [facility] Work Phone: History of Present illness [...] you for this referral and please call [phone] any questions or concerns. * Clinical Presentation: Stable and/or uncomplicated characteristics. * Level of Complexity: low * Problem List: activity limitations, ADLs/IADLs/self care skills, decreased knowledge of HEP, flexibility, gait/locomotion, pain, participation restrictions, range of motion/joint mobility and strength. [facility] Work Phone: History of Present illness [...] the direct supervision of Zoya Schmitz PTA. [facility] Work Phone: Hiskcst of Present illness Narrative* Patient identified by [...] the direct supervision of Zoya Schmitz PTA. [facility] [place] Work Phone: History of Present illness Narrative* Patient identified by name and * Patient 4 minutes late, and asked to leave early d/t dentist appt. Patient appropriately challengedwith palof press this date and able to tolerate proprioception with mild difficulty. Does demo slight difficulty with isometric palof walkout but able to complete reps. [facility] Work Phone: Hisnilx of Present illness Narrative* Patient identified by name and * Mild exacerbation of pain with paloff DLS. * Improved eccentric control with bridges. * Decreased guarding with bed mobility and transfers. [facility] Work Phone: History of Present illness NarrativePatient identified by name and date of . Patient was able to progress with seated exercises and step ups with focus on TrA/glut contractions. She presented with palpable tension with STW that responded well with reduction of Sx after treatment. [facility] Work Phone: History of Present illness Narrative* Patient identified by name and date of . * Discussed with patient positions to help decrease pain, like sitting with lumbar support. * Also discussed positions to avoid like lumbar extension. * Fatigues quickly with resisted DLS and seated exercises on dynadisc. * Tightness along L piriformis this date with relief after STW completion. [facility] Work Phone: History of Present illness NarrativePt [...] and symptom management at this time. [facility] Work Phone: Hospital Discharge instructions* Attachments The following attachments cannot be sent through Care Everywhere. * Abdominal Pain (Comoran) [facility]* Attachments The following attachments cannot be sent through Care Everywhere. * [facility] S[facility] LIN[facility] (narrative)* Outpatient Procedure (Routine) - Pending Review Specialty Diagnoses / Procedures Referred By Jaron german Referred To Contact [facility] Diagnoses Abnormal uterine bleeding (AUB) Procedures ENDOMETRIAL BIOPSY ENDOMETRIAL BX W/WO ENDOCERVIX BX W/O DILAT SPPiper Gonzalez APRN.[facility] [address] [address] [facility] [address] [place] [address] Referral ID Status Reason Start Date Expiration Date Visits Requested Visits Authorized [id number] Pending Review Auto-Generat ed Referral 12/13/2021 12/13/2022 1 1 * Diagnostic Procedure Only (Routine) - Authorized Specialty Diagnoses / Procedures Referred By Jaron german Referred To Contact [facility] Diagnoses Abnormal uterine bleeding (AUB) Procedures PELVIC US WHI US PELVIC NONOBSTETRIC REAL-TIME IMAGE COMPLETE Piper Rahman APRN.CN[place] [address] [address] Referral ID Status Reason Start Date Expiration Date Visits Requested Visits Authorized [id number] Authorized Auto-Generat ed Referral 12/13/2021 12/13/2022 1 1 [facility]ative)No reason for referral information availableWVan Wert [facility] Work Phone: Reason for visit Narrative* Initial Evaluation . lumbar stenosis/spondylosis/spondylolisthesis. * Referred by: Chay Ramírez DO [facility] Work Phone: Reason for visit Narrative* Initial Evaluation . Sacrum disorder, lumbosacral IV disc, lumbosacral radiculitis/spondylosis, spondylolisthesis lumbar region, arthropathy of lumbar facet. * Referred by: Kait Oneil CNP [facility] Work Phone: Reason for visit Narrative* Initial Evaluation . Sacrum disorder, lumbosacral IV disc, lumbosacral radiculitis/spondylosis, spondylolisthesis lumbar region, arthropathy of lumbar facet. * Referred by: Kait Oneil CNP [facility] Work Phone: Summary Purpose Family History No Family History Records Found Relationship Condition Age at Onset Recorded Date/T andrew father Diabetes mellitus Unknown mother Parkinson's disease Unknown Advance Directives No Advanced Directives Records FoundDocuments on File Type Date Recorded Patient Yam Curer Expl anation Advance Directives and Livin g Will 07/25/2019 8:14 AM Documents on File Type Date Recorded Patient Yam Curer Expl anation Advance Directives and Livin g Will 07/25/2019 8:14 AM Advance Directive Response Recorded Date/ Time Living Will Yes January 28, 2022 8:08am Power of Aerial Sprayer Yes January 8:08am Name of Medical Power of Aerial Sprayer prashant arevalo January 28, 2022 8:08am Advance Directive Response Recorded Date/ Time Name of Medical Power of Aerial Sprayer marquis pete whitman May 30, 2023 3:39pm Living Will Yes May 30 3:39pm Power of Aerial Sprayer Yes May 30, 2023 3:39pm Latest Code Status on File Code Status Date Activated Date Inactivated Comments Full Code 05/30/2023 10:25 PM Reason for Referral Status Reason Specialty Diagnoses / Procedures Referre d By Contact Referred To Contact Closed Cardiology Diagnoses Palpitation Procedures Holter monitor - 24 hour Edgar Holbrook MD [address] [place] [address] Specialty Diagnoses / Procedures Referred By Jaron german Referred To Contact Occupational Therapy Diagnoses Brain bleed Alyssa Schultz MD [facility] [place] [place] [address] Referral ID Status Reason Start Date Expiration Date V isits Requested Visits Authorized [id number] New Request 06/01/2023 06/25/2024 1 1 Specialty Diagnoses / Procedures Referred By Jaron german Referred To Contact Speech Therapy Diagnoses Brain bleed Alyssa Schultz MD [facility] [place] [address] Referral ID Status Reason Start Date Expiration Date V isits Requested Visits Authorized [id number] New Request 06/01/2023 06/25/2024 1 1 Scheduling Instructions [facility] [address], 2nd [place] [address] Fax Outpatient Rehabilitation Outpatient [facility] [place] [address], [address] [place] [address] FAX Outpatient Rehabilitation Outpatient Care [address] [place] [address] FAX [facility] [address] [place] [address] FAX [facility] [place] [address] [place] [address] FAX Specialty Diagnoses / Procedures Referred By Contac t Referred To Contact Diagnoses Brain bleed Procedures MRI BRAIN WITH AND WITHOUT CONTRAST CT MRI BRAIN COMBO Alyssa Schultz MD [facility] [place] [address] Referral ID Status Reason Start Date Expiration Date V isits Requested Visits Authorized [id number] New Request 06/01/2023 06/25/2024 1 1 Specialty Diagnoses / Procedures Referred By Jaron german Referred To Contact Physical Therapy Diagnoses Brain bleed Alyssa Schultz MD [facility] [address] [place] [address] Referral ID Status Reason Start Date Expiration Date V isits Requested Visits Authorized [id number] New Request 06/01/2023 06/25/2024 1 1 Scheduling Instructions [facility] [address]nd [place] [address] Fax [facility] (Neck and Back Therapy) [address] [place] [address] FAX [facility] [address] [place] [address] [phone] FAX Outpatient Rehabilitation Outpatient [facility] [place] [address] [facility], [address] [place] [address] [phone] FAX [facility] [address] [place] [address] FAX [facility] [address] [facility], [address] [place] [address] [phone] FAX [facility] [address] [place] [address] [phone] FAX Outpatient Rehabilitation Outpatient Care [address], [address] [place] [address] [phone] FAX [facility] [address] [facility], [address] [place] [address] [phone] FAX [facility] at [address], Room: [address] [place] [address] FAX [facility] [address] [facility], [address] [place] [address] FAX [facility] [address] [place] [address] [phone] FAX [facility]patient [facility] [place] [address] [facility], [address] [place] [address] [phone] FAX [facility] [address] [facility], [address] [place] [address] FAX Outpatient Rehabilitation Outpatient [facility] [place] [address] [facility], [address] [place] [address] [phone] FAX [facility] [address] [facility], [address] [place] [address] [phone] FAX [facility] [place] [address], [place] [address] [phone] FAX [facility] [address] [place] [address] [phone] FAX Outpatient Rehabilitation Outpatient Care [address], [address] [place] [address] [phone] FAX [facility] [address] [place] [address] [phone] FAX Outpatient Care [address] [address] FAX [facility], [address] [place] [id number] FAX Referral ID Status Reason Start Date Expiration Date V isits Requested Visits Authorized [id number] New Request 06/01/2023 06/25/2024 1 1 Specialty Diagnoses / Procedures Referred By Contac t Referred To Contact Neurology Diagnoses Brain bleed Alyssa Shcultz MD [address] [place] [address] Referral ID Status Reason Start Date Expiration Date V isits Requested Visits Authorized [id number] New Request 06/01/2023 06/25/2024 1 1 Specialty Diagnoses / Procedures Referred By Contac t Referred To Contact Procedures DVT/VTE RISK ASSESSMENT Alyssa Schultz MD [address] [place] [address] Referral ID Status Reason Start Date Expiration Date V isits Requested Visits Authorized [id number] New Request 05/30/2023 06/23/2024 1 1 Specialty Diagnoses / Procedures Referred By Contac t Referred To Contact Procedures ECG Hussain Limon MD [address] [place] [address] Referral ID Status Reason Start Date Expiration Date V isits Requested Visits Authorized [id number] New Request 05/30/2023 06/23/2024 1 1 Referral ID Status Reason Start Date Expiration Date V isits Requested Visits Authorized [id number] New Request 05/30/2023 06/23/2024 1 1 Specialty Diagnoses / Procedures Referred By Contac t Referred To Contact Diagnoses Brain bleed Procedures MRI BRAIN WITHOUT CONTRAST MRI BRAIN WITH AND WITHOUT CONTRAST CT MRI BRAIN COMBO CT MRI BRAIN Melony Madsen MD [address] [facility] [address] [place] [address] Assessments Diagnosis Palpitation Palpitations Chief Complaint and [...] lower extremity November 28, 2024 12:4 1pm Chief Complaint Admit Date LUMBAR DISC DISEASE/ MUSCLE SPASM OF SUKUMAR K August 18, 2024 9:37am lower extremity November 28, 2024 12:4 1pm RT LOWER LEG PAIN AND SWELLING November 1:08pm Medications Administered Section Inactive Administered Medications - up to 3 most recent administrations Medication Order MAR Action Action Date Dose Rate Site tropicamide 1 % 1 Drop (MYDRIACYL) 1 Drop, BOTH EYES, ONCE, 1 dose, On 04/09/23 at 1030, FOR THE EYE Given 04/09/2023 10:30 AM EST 1 Drop Additional Source Comments INFORMATION SOURCE (unrecogn ized section and content) DATE CREATED AUTHOR 01/08/2019 [facility] DATE CREATED AUTHOR AUTHOR'S ORGANIZ ATION 07/25/2019 [facility] DATE CREATED AUTHOR AUTHOR'S ORGANIZ ATION 07/31/2019 [facility] DATE CREATED AUTHOR AUTHOR'S ORGANIZ ATION 11/16/2021 [facility] DATE CREATED AUTHOR AUTHOR'S ORGANIZ ATION 11/18/2022 [facility] DATE CREATED AUTHOR AUTHOR'S ORGANIZ ATION 11/18/2022 [facility] DATE CREATED AUTHOR AUTHOR'S ORGANIZ ATION 08/16/2023 [facility] DATE CREATED AUTHOR AUTHOR'S ORGANIZ ATION 02/16/2024 [facility] DATE CREATED AUTHOR AUTHOR'S ORGANIZ ATION 10/03/2024 [facility] DATE CREATED AUTHOR AUTHOR'S ORGANIZ ATION 12/13/2024 [facility] Reason for Visit (unrecogniz ed section and content) Status Reason Specialty Diagnoses / Procedures Referre d By Contact Referred To Contact Closed Cardiology Diagnoses Palpitation Procedures Holter monitor - 24 hour Edgar Holbrook MD [address] [place] [address] Reason Comments 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 Reason Comments Eye Crusting Right Eye [...] evaluation Specialty Diagnoses / Procedures Referred By Jaron t Referred To Contact Diagnoses Brain bleed Hemorrhagic Stroke [facility] [address] [place] [address] [facility] [address] [place] [address] Referral ID Status Reason Start Date Expiration Date Visits Re quested Visits Authorized [id number] 1 1 Specialty Diagnoses / Procedures Referred By Jaron t Referred To Contact Diagnoses Brain bleed Procedures MRI BRAIN WITHOUT CONTRAST MRI BRAIN WITH AND WITHOUT CONTRAST CT MRI BRAIN COMBO CT MRI BRAIN Melony Madsen MD [address] [facility] [address] [place] [address] Referral ID Status Reason Start Date Expiration Date V isits Requested Visits Authorized [id number] New Request 06/01/2023 06/25/2024 1 1 Source Comments (unrecognize d section and content) In the event this informatio n is protected by the Federal Confidentiality of Alcohol and Drug Abuse Patient Records regulations: The Federal rules restrict any use of the information to criminally investigate or prosecute any alcohol or drug abuse patient.[facility] Hospital[facility] the event this information is protected by the Federal Confidentiality of Alcohol and Drug Abuse Patient Records regulations: The Federal rules restrict any use of the information to criminally investigate or prosecute any alcohol or drug abuse patient.[facility] HospitalIn the event this information is protected by the Federal Confidentiality of Alcohol and Drug Abuse Patient Records regulations: The Federal rules restrict any use of the information to criminally investigate or prosecute any alcohol or drug abuse patient.[facility] HospitalIn the event this information is protected by the Federal Confidentiality of Alcohol and Drug Abuse Patient Records regulations: The Federal rules restrict any use of the information to criminally investigate or prosecute any alcohol or drug abuse patient.[facility] HospitalIn the event this information is protected by the Federal Confidentiality of Alcohol and Drug Abuse Patient Records regulations: The Federal rules restrict any use of the information to criminally investigate or prosecute any alcohol or drug abuse patient.[facility] HospitalIn the event this information is protected by the Federal Confidentiality of Alcohol and Drug Abuse Patient Records regulations: The Federal rules restrict any use of the information to criminally investigate or prosecute any alcohol or drug abuse patient.[facility] HospitalIn the event this information is protected by the Federal Confidentiality of Alcohol and Drug Abuse Patient Records regulations: The Federal rules restrict any use of the information to criminally investigate or prosecute any alcohol or drug abuse patient.[facility] HospitalIn the event this information is protected by the Federal Confidentiality of Alcohol and Drug Abuse Patient Records regulations: The Federal rules restrict any use of the information to criminally investigate or prosecute any alcohol or drug abuse patient.[facility] HospitalIn the event this information is protected by the Federal Confidentiality of Alcohol and Drug Abuse Patient Records regulations: The Federal rules restrict any use of the information to criminally investigate or prosecute any alcohol or drug abuse patient.[facility] HospitalIn the event this information is protected by the Federal Confidentiality of Alcohol and Drug Abuse Patient Records regulations: The Federal rules restrict any use of the information to criminally investigate or prosecute any alcohol or drug abuse patient.[facility] HospitalIn the event this information is protected by the Federal Confidentiality of Alcohol and Drug Abuse Patient Records regulations: The Federal rules restrict any use of the information to criminally investigate or prosecute any alcohol or drug abuse patient.[facility] HospitalIn the event this information is protected by the Federal Confidentiality of Alcohol and Drug Abuse Patient Records regulations: The Federal rules restrict any use of the information to criminally investigate or prosecute any alcohol or drug abuse patient.[facility] Care Teams (unrecognized sec tion and content) Bead Inspector Relationship Specialty Start Date End Date Edgar Hol[place] [address] PCP - General 07/25/04 Bead Inspector Relationship Specialty Start Date End Date Edgar Hol[place] [address] PCP - General 07/25/04 Bead Inspector Relationship Specialty Start Date End Date Edgar Hol[place] [address] PCP - General 07/25/04 Bead Inspector Relationship Specialty Start Date End Date Edgar Hol[place] [address] PCP - General 07/25/04 Bead Inspector Relationship Specialty Start Date End Date Edgar Holbrook [place] [address] PCP - General 07/25/04 Bead Inspector Relationship Specialty Start Date End Date Edgar Hol[place] [address] PCP - General 07/25/04 Bead Inspector Relationship Specialty Start Date End Date Edgar Holbrook MD [address] [place] [id number] PCP - General Family Medicine 06/15/22 Bead Inspector Relationship Specialty Start Date End Date Edgar Holbrook [address] [place] [address] PCP - General 07/25/04 Team Status: Active Member Role Status Dates Dr. Edgar Holbrook MD Family Provider Active Dr. Edgar Holbrook MD Primary Care Provider Active Team Status: Inactive Member Role Status Dates Dr. Edgar Holbrook MD Primary Care Provider, [facility] Active Fortunato PAULA, [place] Attending Provider Active Team Status: Inactive Member Role Status Dates Dr. Edgar Holbrook MD Primary Care Provider Active Dr. Oliver Briggs MD Emergency Provider Active Bead Inspector Relationship Specialty Start Date End Date Edgar Holbrook MD PCP - General Family Medicine 06/15/22 05/31/23 Paulo Shankar MD [address] [place], [place] [address]marija [address] [address] PCP - General Internal Medicine 06/01/23 Team [...] MD Primary Care Provider, Attending Provider Active Bead Inspector Relationship Specialty Start Date End Date [place] [address] PCP - General Internal Medicine 06/01/23 Team [...] November 28, 2024 End: November 28, 2024 Team Status: Inactive Member Role/Relationship Status Dates Dr. Romeo Shankar MD Primary Care Provider Active Start: November 28, 2024 End: November 28, 2024 Ed Physician Provider Attending Provider Active Start: November 28, 2024 End: November 28, 2024 Ed Physician Provider Emergency Provider Active Start: November 28, 2024 End: November 28, 2024 Team Status: Inactive Member Role/Relationship Status Dates Dr. Romeo Shankar MD Primary Care Provider Active Start: December 02, 2024 End: December 02, 2024 Dr. Romeo Shankar MD Attending Provider Active Start: December 02, 2024 End: December 02, 2024 Team Status: Active Member Role/Relationship Status Dates Dr. oRmeo Shankar MD Primary Care Provider Active Start: December 02, 2024 Dr. Romeo Shankar MD Attending Provider Active Start: December 02, 2024 Dr. Romeo Shankar MD Referring Provider Active Start: December 02, 2024 Team Status: Active Member Role/Relationship Status Dates Dr. Romeo Shankar MD Primary Care Provider Active Start: December 02, 2024 Dr. Salomón White MD Attending Provider Active S tart: December 02, 2024 Team Status: Inactive Member Role/Relationship Status Dates Dr. Romeo Shankar MD Primary Care Provider Active Start: December 02, 2024 End: December 02, 2024 Dr. Romeo Shankar MD Attending Provider Active Start: December 02, 2024 End: December 02, 2024 Dr. Romeo Shankar MD Referring Provider Active Start: December 02, 2024 End: December 02, 2024 Goals (unrecognized section and content) Goals [...] ONCE, 1 dose, On Nayely 06/15/22 at 2114 2100 (Given - Provid er: Marika Easton RN) iohexol (OMNIPAQUE) 350 MG/ML injection 75 mL (COMPLETED) 75 mL, Intravenous, ONCE, 1 dose, On Nayely 06/15/22 at 2214, Extravasation Risk, Radiology Procedure 2148 (Given - Radiol ogy - Provider: Winter Uribe) Ondansetron 4mg/2ml (ZOFRAN) injection 4 mg (COMPLETED) 4 mg, Intravenous, ONCE, 1 dose, On Nayely 06/15/22 at 2114 2100 (Given - Provid er: Marika Easton RN) Sodium chloride 0.9% IV solution 1,000 mL (COMPLETED) 1,000 mL, Intravenous, ONCE, 1 dose, On Nayely 06/15/22 at 2114 2100 ($$New Bag$$ - Provider: Marika Easton RN)230 (Stopped - Provider: Marika Easton RN) Sodium chloride 0.9% IV solution 75 mL (COMPLETED) 75 mL, Intravenous, ONCE, 1 dose, On Nayely 06/15/22 at 221, Radiology Procedure 2148 ($$New Bag$$ - Provider: [...] 05/31/23 at 0130, Extravasation Risk, MR Procedure 0132 (Given - Radiology - Provider: Maddie Reeder) iohexol (OMNIPAQUE) 350 MG/ML injection 1-171 mL (COMPLETED) 1-171 mL, Intravenous, ONCE, 1 dose, On Sun05/30/23 at 2215, Extravasation Risk, CT Procedure 213 (Given - Radiology - Provider: Brittney Cast - Comment: 20 g left ac) iohexol (OMNIPAQUE) 350 MG/ML injection 1-171 mL (COMPLETED) 1-171 mL, Intravenous, ONCE, 1 dose, On Nayely 05/31/23 at 0445, Extravasation Risk, CT Procedure 0437 (Given - Radiology - Provider: Chay Hernandez) Levothyroxine (SYNTHROID) tablet 50 mcg 50 mcg, Oral, DAILY, First dose on Nayely 05/31/23 at 0900, Until Discontinued 921 (Given - Provider: Ashely Christensen RN) 825 (Given - Provider: Balbina Garcia RN) Ondansetron 4mg/2ml (ZOFRAN) injection 8 mg (COMPLETED) 8 mg, Intravenous, ONCE, 1 dose, On Nayely 05/31/23 at 0515 0436 (Given - Provider: Alirio Corey RN) Pantoprazole (PROTONIX) tablet DR 40 mg 40 mg, Oral, DAILY, First dose on Nayely 05/31/23 at 0900, Until Discontinued, Swallow whole; do not crush or chew., Indications: Continuation of Home Therapy 921 (Given - Provider: Ashely Christensen RN) 825 (Given - Provider: Balbina Garcia RN) Rosuvastatin (CRESTOR) tablet 5 mg 5 mg, Oral, DAILY, First dose on Nayely 05/31/23 at 0900, Until Discontinued 921 (Given - Provider: Ashely Christensen RN) 825 (Given - Provider: Balbina Garcia RN) Senna [...] 2 minutes. 1329 (Given - Provider: Ashely Christensen, RN) Ondansetron (ZOFRAN) tablet 4 mg(Linked Group [...] Until Sun05/30/23 at 2140, Flush, CT Procedure 2140 (Given - Provider: Brittney Cast - Comment: 20g left ac) Sodium chloride (PF) 0.9 % injection 1-100 mL (COMPLETED) 1-100 mL, Intravenous, ONCE NEEDED, 1 dose, Starting on Nayely 05/31/23 at 0436, Until Sun05/31/23 at 0438, Flush, CT Procedure 0438 (Given - Provider: Chay Hernandez) Linked Groups [...] BE BASED ON THE PRIMARY CLINICAL RECORDS. [facility]. provides no warranty or guarantee of the accuracy or completeness of information in this document.
[2024-12-27 11:07] LABS: Color, Urine Yellow (Yellow); Glucose, Dipstick Normal (Normal); Ketone-Dipstick Negative (Negative); Leukocyte Esterase-Dipstick 25 /ul (Negative); Nitrite-Dipstick Negative (Negative); Occult Blood-Urine Negative /ul (Negative); Protein-Dipstick 15 mg/dl (Negative); Specific Gravity, Urine 1.010 (1.002-1.030); Urine Bilirubin Dipstick Negative (Negative)
[2024-12-27 11:13] LABS: Squamous Epithelial Cells - UA 0-5 SEEN /hpf (5-10)
[2024-12-27 11:31] VITALS: BP 130/70; PULSE 49; O2SAT 96
[2024-12-27 12:52] VITALS: BP 137/78; PULSE 60; RESP 16; TEMP 37; O2SAT 97
== END 2024-12-27 12:54 | disposition home or self-care (01) ==
PROVIDERS: Emergency Provider Emergency Medicine; PCP Family Medicine Geriatric Medicine; Visit Provider Emergency Medicine
DX: R10.9 Unspecified abdominal pain (principal); K57.90 Diverticulosis of intestine, part unspecified, without perforation or abscess without bleeding; E78.5 Hyperlipidemia, unspecified; K21.9 Gastro-esophageal reflux disease without esophagitis; K59.00 Constipation, unspecified
CPT/HCPCS: 74177; 80053; 81001; 85025; 99284; A4216

== ENCOUNTER → 2025-03-26 | Outpatient (CLI) | payer MEDICARE, BC, SELFPAY ==
[2025-03-26 13:27] LABS: Hematocrit 41.4 % (37-47); Hemoglobin 13.4 g/dL (12.0-15.0); Immature Granulocytes Count 0.010 X10^3/uL (0.0-0.0); Mean Corp Hgb Conc 32.4 g/dL (32-36); Mean Corpuscular Volume 90.4 fL (81-99); Mean Platelet Vol. 10.6 fl (6.2-12.0); NRBC Flagged by Analyzer 0 % (0-5); Platelet Count 214 K/mm3 (150-450); RBC Distribution Width CV 14.1 % (11.6-14.6); RBC Distribution Width SD 47.1 fl (35.1-43.9); Red Blood Count 4.58 M/mm3 (4.2-5.4); White Blood Count 4.4 K/mm3 (4.4-11.0)
[2025-03-26 13:38] LABS: Anion Gap 11 (5-15); BUN 13 mg/dL (4-19); BUN/Creat Ratio 13.4 RATIO (10-20); Calcium,Total 9.4 mg/dL (7.6-11.0); Carbon Dioxide 23.7 mmol/L (21.0-32.0); Chloride 106 mmol/L (98-108); Glucose 95 mg/dL (70-99); Potassium 4.0 mmol/L (3.3-5.1)
== END | disposition home or self-care (01) ==
LOC: LAB 12:22
PROVIDERS: PCP Family Medicine Geriatric Medicine; Referring Provider Family Medicine Geriatric Medicine; Visit Provider Family Medicine Geriatric Medicine
DX: G93.40 Encephalopathy, unspecified (principal); N39.0 Urinary tract infection, site not specified
CPT/HCPCS: 36415; 80048; 85025; 87086

== ENCOUNTER 2025-04-12 02:10 | Emergency (ER) | payer MEDICARE, BC, SELFPAY ==
[2025-04-12] VITALS (10 sets, daily range): BP systolic 134–160; BP diastolic 72–84; PULSE 82–88; RESP 17–21; TEMP 36.6–36.7; O2SAT 93–98; BMI 32.2; BMI 34.2
--- NOTE | 2025-04-12 02:13 | CT_ITS ---
PROCEDURE: STROKE BRAIN/HEAD WITHOUT CONT N/A REASON FOR EXAM: NEURO DEFICIT, ACUTE, STROKE SUSPECTED TECHNIQUE: Procedure Code: CTBR.ST Modality: CT Procedure: STROKE BRAIN/HEAD WITHOUT CONT Coronal and Sagittal reconstruction series were provided. One or more dose reduction techniques were used (e.g., Automated exposure control, adjustment of the mA and/or kV according to patient size, use of iterative reconstruction technique. RADIATION DOSE SUMMARY: CTDlvol: 44.99 mGy DLP: 829 mGycm COMPARISON: 05/30/2023. FINDINGS: Left frontal/parietal acute intraparenchymal hematoma measuring 5.7 x 5.2 cm in its largest anteroposterior and transverse dimensions respectively. Moderate surrounding edema with effacement of the corresponding sulci. 4.5 mm midline shift to the right side. Mild diffuse cortical atrophy, commensurate with the patient's age. Unchanged right frontal chronic ischemic encephalomalacia. Scattered hypodense foci in the periventricular and subcortical white matter suggestive of chronic ischemic white matter disease. Normal size of the ventricles and remaining extra-axial spaces for the patient's age. Normal basal ganglia and thalami. Normal brainstem. Normal cerebellum. There is no demonstrated intraventricular hemorrhage. Normal calvarium. There is no demonstrated fracture. Normal soft tissue structures. Normal visualized paranasal sinuses. CT/STROKE Brain/Head without Cont IMPRESSION: Left frontal/parietal acute intraparenchymal hematoma measuring 5.7 x 5.2 cm in its largest anteroposterior and transverse dimensions respectively. Moderate surrounding edema with effacement of the yfn esponding sulci. 4.5 mm midline shift to the right side. Mild diffuse cortical atrophy, commensurate with the patient's age. Unchanged right frontal chronic ischemic encephalomalacia. Scattered hypodense foci in the periventricular and subcortical white matter amaral ggestive of chronic ischemic white matter disease. I discussed the findings with Dr. Tami Sung at 2:34 a.m. EST. Reading Location: [place] [id number]
--- NOTE | 2025-04-12 02:13 | CT_ITS ---
PROCEDURE: STROKE CTA HEAD AND NECK W/CON 04/12/2025 REASON FOR EXAM: NEURO DEFICIT, ACUTE, STROKE SUSPECTED TECHNIQUE: Procedure Code: [id number].ST.HN Modality: CT Procedure: STROKE CTA HEAD AND NECK W/CON Multiplanar Sagittal and Coronal images were obtained. CONTRAST: Isovue 370 VOLUME: 100 mL One or more dose reduction techniques were used (e.g., Automated exposure control, adjustment of the mA and/or kV according to patient size, use of iterative reconstruction technique). RADIATION DOSE SUMMARY: CTDlvol: 19.72 mGy DLP: 719 mGycm COMPARISON: CT scan on 04/12/2025. FINDINGS: Normal bilateral petrous carotid arteries. Normal right cavernous carotid artery with a normal supraclinoid bifurcation. Normal left cavernous carotid artery with a normal supraclinoid bifurcation. Normal right A1 segments of the anterior cerebral artery. Normal left A1 segments of the anterior cerebral artery. Normal intact anterior communicating artery (ACOM). Normal bilateral A2 segments of the anterior cerebral arteries. Normal right M1 and M2 segments of the middle cerebral arteries, with a normal M1 bifurcation. Normal left M1 and M2 segments of the middle cerebral arteries, with a normal M1 bifurcation. Normal right posterior communicating artery (PCOM). Normal left posterior communicating artery (PCOM). Normal bilateral vertebral arteries. Normal basilar artery with a normal basilar bifurcation. The visualized bilateral superior cerebellar (SCA) arteries are normal. Normal bilateral P1, P2 and visualized P3 segments of the posterior cerebral arteries. There is no demonstrated aneurysm of the false pass of [place]. There is no major vessel occlusion or hemodynamically significant stenosis. Technique: Axial CT angiographic images of the neck. Reformatted coronal and sagittal images. 3D, MIP images. Reconstructed images were reviewed on a different workstation by radiologist. RIGHT CAROTID ARTERIES: Normal right common carotid artery (CCA). Normal right common carotid bulb. Normal origin of the right internal carotid (ICA) artery without a hemodynamically significant stenosis. Normal visualized cervical portion of the right internal carotid artery. Normal origin of the right external carotid artery (ECA). LEFT CAROTID ARTERIES: Normal left common carotid artery (CCA). 20% stenosis of the left common carotid bulb. 20% stenosis of the origin of the left internal carotid (ICA) artery without a hemodynamically significant stenosis. Normal remaining visualized cervical portion of the left internal carotid artery. Normal origin of the left external carotid artery (ECA). VERTEBRAL ARTERIES: Normal bilateral vertebral artery without a hemodynamically significant stenosis. CT/STROKE CTA Head AND Neck W/Con IMPRESSION: Atherosclerosis without high-grade stenosis. I discussed the findings with the nurse in charge who will inform Dr. Tami evans at 3 a.m. EST. Reading Location: [place] [id number]
--- NOTE | 2025-04-12 02:13 | EKG12_ITS ---
Test Reason : STROKE Blood Pressure : */* mmHG Vent. Rate : 86 BPM Atrial Rate : 86 BPM P-R Int : 182 ms QRS Dur : 90 ms QT Int : 402 ms P-R-T Axes : 21 -6 5 degrees QTcB Int : 481 ms Normal sinus rhythm Inferior infarct , age undetermined Abnormal ECG Confirmed by REJI CHINO, KAYLIN ([id number]), book editor KAYLA DARDEN ([id number]) on 04/13/2025 6:11:02 AM Referred By: Confirmed By: KAYLIN MENDOZA MD
--- NOTE | 2025-04-12 02:18 | NURSING ---
[facility] called and notified of stroke
--- OUTSIDE RECORDS SUMMARY | 2025-04-12 02:18 | XMS RPT_ITS | CCD ---
Author Organization [facility] Care Team Providers Care Home Staging Specialist Name Role Phone EDGAR HOLBROOK Attending EDGAR Young Referring EDGAR Young Primary Care Edgar Young Primary Care Provider Edgar Holbrook Primary Care Provider Edgar Holbrook Primary Care Provider Edgar Holbrook Unavailable Edgar Holbrook Primary Care Provider Edgar Holbrook MD Primary Care Provider Edgar Holbrook Primary Care Provider Darrell, Dr. Chay Srivastava Attending Unavaila ble Sheron, Dr. Edgar Kern Primary Care Unavaila collin Oneil, Ms. Kait Bell Attending Aria collin Holbrook, Dr. Edgar Kern Primary Care Unavaila collin Ramríez, Dr. Chay Srivastava Attending Unavaila ble Sheron, Dr. Edgar Kern Primary Care Unavaila collin Ramírez, Dr. Chay Srivastava Attending Unavaila ble Sheron, Dr. Edgar Kern Primary Care Unavaila ble Sheron, Dr. Edgar Kern Primary Care Unavaila collin Ramírez, Dr. Chay Srivastava Attending Unavaila ble Clarice, Ms. Kait Bell Attending Unavaila ble Sheron, Dr. Edgar Kern Primary Care Unavaila ble Clarice, Ms. Kait Bell Attending Unavaila ble Sheron, Dr. Edgar Kern Primary Care Unavaila ble Clarice, Ms. Kait Bell Attending Unavaila ble Sheron, Dr. Edgar Kern Primary Care Unavaila collin Ramírez, Dr. Chay Srivastava Attending Unavaila ble Sheron, Dr. Edgar Kern [facility] Unavaila ble Ramírez, Dr. Chay Srivastava Attending Unavaila ble [place], Dr. Edgar Kern [facility] Unavaila ble Ramírez, Dr. Chay Srivastava Attending Unavaila ble [place], Dr. Edgar Kern [facility] Unavaila ble Ramírez, Dr. Chay Srivastava Attending Unavaila ble [place], Dr. Edgar Kern [facility] Unavaila ble Ramírez, Dr. Chay Srivastava Attending Unavaila ble [place], Dr. Edgar Kern [facility] Unavaila ble Ramírez, Dr. Chay Srivastava Attending Unavaila ble [place], Dr. Edgar Kern [facility] Unavaila ble [place]maggie, Dr. Edgar Kern [facility] Unavaila ble Teach, Ms. Kait Bell Attending Unavaila ble [place], Dr. Edgar Kern [facility] Unavaila ble Darrell, Dr. Chay Srivastava Attending Unavaila ble [place], Dr. Edgar Kern [facility] Unavaila ble Darrell, Dr. Chay Srivastava Attending Unavaila ble [place], Dr. Edgar Kern [facility] Unavaila ble Teach, MsMarivel Kaitfabiano Bell Attending Unavaila ble [place], Dr. Edgar Kern [facility] Unavaila ble Teach, MsMarivel Bell Attending Unavaila ble [place], Dr. Edgar Kern [facility] Unavaila ble Teach, MsMarivel Kaitfabiano Bell Attending Unavaila ble [place], Dr. Edgar Kern [facility] Unavaila ble Teach, MsMarivel Kaitfabiano Bell Attending Unavaila ble Teach, MsMarivel Kaitfabiano Bell Attending Unavaila ble [place], Dr. Edgar Kern [facility] Unavaila ble Darrell, Dr. Chay Srivastava Attending Unavaila ble [place], Dr. Edgar Kern [facility] Unavaila ble [place], Dr. Edgar Kern [facility] Unavaila ble Darrell, Dr. Chay Srivastava Attending Unavaila ble Ramírez, Dr. Chay Srivastava Attending Unavaila ble [place]agg[place], Dr. Edgar Kern [facility] Unavaila ble [place], Dr. Edgar Kern [facility] Unavaila ble Teach, MsMarivel Bell Attending Unavaila ble [place], Dr. Edgar Kern [facility] Unavaila ble Teach, MsMarivel Bell Attending Unavaila ble Unavailable Primary Care Provider Tika Holbrook, Dr. Juarez Primary Care Provider [phone] Sheron, Dr. Juarez Referring Provider Casey PAULA, NISA Smith Attending Provider Edgar Holbrook MD Primary Care Provider Raad CHINO, Paulo Primary Care Provider ANTOINE, ALYSSA H Referring Unavailable MAYANK CLINE Attending Unavailable RAAD, ROMEO-CHI Primary Care Unavailable ANTOINE, ALYSSA H Referring Unavailable ANTOINE, ALYSSA H Attending Unavailable RAAD, ROMEO-CHI Primary Care Unavailable CONSULT, SURGERY - NEURO Consulting Unavail able EDGAR HOLBROOK Primary Care Unavailable SYSTEM, PROVIDER NOT IN Referring Unavaila ble ANTOINE, ALYSSA H Attending Unavailable ANTOINE, ALYSSA H Admitting Unavailable RAAD, ROMEO-CHI Primary Care Unavailable MAYANK CLINE Referring Unavailable MAYANK CLINE Attending Unavailable RAAD, ROMEO CHI Attending Unavailable RAAD, ROMEO CHI Consulting Unavailable RAAD, ROMEO WARD Primary Care Unavailable RAAD, ROMEO CHI Admitting Unavailable PROVIDER, UNKNOWN Consulting Unavailable PROVIDER, UNKNOWN Consulting Unavailable Raad CHINO, Dr. Romeo Ward Primary Care Provider Raad CHINO, Dr. Romeo Ward Attending Provider [phone] Raad CHINO, Dr. Romeo Ward Referring Provider [phone] Unavailable Primary Care Provider Tika Shankar MD, Dr. Romeo Ward Primary Care Provider Raad CHINO, Dr. Romeo Ward Attending Provider Raad CHINO, Dr. Romeo Ward Referring Provider Provider, Ed Physician Emergency Provider Tammie peñaloza Provider, Ed Physician Attending Provider Tammie White MD, Dr. Lorenzana Attending Provider [phone] Raad CHINO, Dr. Romeo Ward Primary Care Provider Raad CHINO, Dr. Romeo Ward Attending Provider Raad CHINO, Dr. Romeo Ward Referring Provider Layo CHINO, Dr. Pabon Emergency Provider ASHELY PEARL Attending Unavailabl e ZENOBIA RODRIGUEZ Attending Unavail able ZENOBIA RODRIGUEZ Referring Unavail able ZENOBIA RODRIGUEZ Attending Unavail able ZENOBIA RODRIGUEZ Referring Unavail able Raad, Romeo Chi Attending Unavailable Raad, Romeo [...] Unavailable Raad, Romeo Chi Primary Care Unavailable Cm Vasques Attending Unavailable Raad, Romeo Chi Primary Care Unavailable Raad, Romeo Chi Referring Unavailable Raad, Romeo Chi Primary Care Unavailable Raad, Romeo Chi Attending Unavailable Raad, Romeo Chi Attending Unavailable Raad, Romeo Chi Referring Unavailable Raad, Romeo Chi Primary Care Unavailable Raad, Romeo Chi Referring Unavailable Raad, Romeo Chi Primary Care Unavailable Salomón White Attending Unavailable Provider, Ed Physician Attending Unavailab le Raad, Romeo Chi Primary Care Unavailable Allergies Allergy Classification Reported Allergen(s) Allergy Type Date of Onset Reaction(s) Facility (20 sources) Penicillins; Translations: [Unknown] Propensity to adverse reactions to drug (disorder) 6 [facility] Medications Current Medications Medication Drug Class(es) Dates Sig (Normalized) Sig (Original) cholecalciferol 0.05 mg oral capsule (10 sources) Vitamin D Start: 05-30-2023 take 1 capsule by mouth once daily Cholecalciferol (Vitamin D3) (Vitamin D3) 50 mcg (2,000 unit) capsule Active 50 ug PO DAILY May 30, 2023 1:00am citalopram 10 mg oral tablet (1 source) Serotonin Reuptake Inhibitor Start: 12-24-2024 citalopram hydrobromide (CELEXA) 10 mg tablet 12/24/2024 Active clobetasol propionate 0.0005 mg/mg topical ointment (4 [...] Comment on above: [facility] 10 days. ergocalciferol, vitamin D2, (VITAMIN D2 ORAL) (6 sources) ergocalciferol, vitamin D2, (VITAMIN D2 ORAL) [...] 2020 2:11pm take 1 tablet by zeb once daily levothyroxine (SYNTHROID, LEVOTHROID) 125 MCG tablet Take 125 mcg by mouth daily. 0 Active Comment on above: 1/2 tablet daily miSOPROStol 0.2 mg oral tablet (5 sources) Prostaglandin E1 Analog Start: 08-11-2024 miSOPROStol [...] cancel msg)) predniSONE 20 mg oral tablet (15 sources) Start: 03-02-2021 End: 01-26-2022 predniSONE (DELTASONE) [...] / HYDROcodone bitartrate 5 mg oral tablet (11 sources) Opioid Agonist Start: 03-02-2021 End: 05-30-2023 [...] PO EVERY 4 HOURS NEEDED 10 2 October 27th, 2021 Felicita 24th, 2024 11:45am acetaminophen 325 mg / oxyCODONE hydrochloride 5 mg oral tablet (11 sources) Opioid Agonist Start: 05-12-2020 End: 05-17-2020 [...] 10 mg meloxicam 15 mg oral tablet (11 sources) Nonsteroidal Anti-inflammatory Drug Start: 05-04-2020 End: 06-25-2020 take 1 tablet by mouth once daily Meloxicam 15 mg tablet Discontinued 15 mg PO DAILY May 04, 2020 1:00am June 25, 2020 11:39am methylPREDNISolone 4 mg oral tablet (11 sources) Corticosteroid Start: 06-25-2020 End: 05-30-2023 take [...] or chew., Indications: Continuation of Home Therapy phenylephrine hydrochloride 25 mg/ml ophthalmic solution (2 sources) alpha-1 Adrenergic Agonist Start: 12-29-2024 End: 12-29-2024 PHENYLephrine 2.5 % 1 drop (AK-DILATE, KILEY-SYNEPHRINE) Start: 12-29-2024 End: 12-29-2024 1 drop, BOTH EYES, ONCE, 1 d ose, On Sun12/29/24 at 0800, FOR OPHTHALMIC USE ONLY PROTECT FROM LIGHT Polyethylene glycol (MIRALAX) packet 17 g (1 source) Start: 05-30-2023 End: 06-01-2023 Polyethylene glycol (MIRALAX) packet 17 g 1000 ml potassium chloride 0.02 meq/ml / sodium chloride 9 mg/ml injection (1 source) Start: 05-30-2023 End: 05-31-2023 Intravenous, at 75 mL/hr, CONTINUOUS, Starting on Sun05/30/23 at 2230, Until Sun05/31/23 at 1535 proparacaine hydrochloride 5 mg/ml ophthalmic solution (2 sources) Local Anesthetic Start: 12-29-2024 End: 12-29-2024 proparacaine 0.5 % 1 drop (ALCAINE) Start: 12-29-2024 End: 12-29-2024 1 drop, BOTH EYES, ONCE, 1 d ose, On Sun12/29/24 at 0800, FOR THE EYE rosuvastatin calcium 5 mg oral tablet (20 [...] Starting on Nayely 05/31/23 at 0436, Until Nayely 05/31/23 at 0438, Flush, CT Procedure Start: 06-15-2022 End: 06-15-2022 Sodium chloride 0.9% IV solu tion 75 mL traMADol hydrochloride 50 mg oral tablet (11 sources) Opioid Agonist Start: 05-25-2020 End: 05-30-2020 take 1 tablet by mouth three times daily as needed for pain Tramadol 50 mg tablet Discontinued 50 mg PO THREE TIMES A DAY as needed for pain 30 5 0 May 25, 2020 1:00am May 29, 2020 1:00am May 30, 2020 1:03am stop all other narcotics tropicamide 10 mg/ml ophthalmic solution (3 sources) Anticholinergic Start: 12-29-2024 End: 12-29-2024 tropicamide 1 % 1 drop (MYDRIACYL) Start: 12-29-2024 End: 12-29-2024 1 drop, BOTH EYES, ONCE, 1 d ose, On Sun12/29/24 at 0800, FOR THE EYE Start: 04-09-2023 End: 04-09-2023 tropicamide 1 % 1 Drop (MYDR IACYL) Problems Active Problems Problem Classification Problem Date Documented Da te Episodic/Chronic Abdominal pain (20 sources) Right lower quadrant pain; Translations: [Right lower quadrant pain] Onset: 5 Episodic Acute cerebrovascular disease (19 sources) Intracranial hemorrhage; Translations: [Nontraumatic intracranial hemorrhage, unspecified] Onset: 4 05-30-2023 Chronic Cardiac dysrhythmias (1 source) Palpitations; Translations: [Palpitation] Episodic Cataract (13 sources) Bilateral senile combined form cataracts of eyes; Translations: [Combined forms of age-related cataract, bilateral] Onset: 5 08-17-2016 Chronic Disorders of lipid metabolism (10 sources) Hyperlipidemia; Translations: [Hyperlipidemia, unspecified] 05-30-2023 Chronic Esophageal disorders (10 sources) Gastroesophageal reflux disease; Translations: [Gastro-esophageal reflux disease without esophagitis] 05-30-2023 Chronic Fracture of upper limb (11 sources) Fracture of distal end of radius; Translations: [Unspecified fracture of the lower end of left radius, initial encounter for closed fracture] 04-30-2020 Episodic Genitourinary symptoms and ill-defined conditions (13 sources) Urge incontinence of urine; Translations: [Urge incontinence] Onset: 3 11-04-2012 Chronic Genitourinary symptoms and ill-defined conditions [...] brain; Translations: [Intraparenchymal hematoma of brain] Onset: 4 07-24-2023 Episodic Late effects of cerebrovascular disease (3 sources) Impaired cognition; 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] Onset: 4 07-24-2023 Chronic Menopausal disorders (7 sources) Postmenopausal bleeding; Translations: [Postmenopausal bleeding] Onset: 5 Chronic Nausea and vomiting (1 source) Nausea; Translations: [Nausea] Episodic Nutritional deficiencies (1 source) Vitamin D deficiency, unspecified; Translations: [Vitamin D deficiency, unspecified] Onset: 5 Chronic Osteoarthritis (10 sources) Osteoarthritis; Translations: [Unspecified osteoarthritis, unspecified site] 05-30-2023 Chronic Other acquired deformities (20 sources) Lumbar spondylolisthesis; Translations: [Spondylolisthesis] Episodic Other acquired deformities (1 source) Spondylolisthesis, lumbar region; Translations: [Spondylolisthesis, lumbar region] Onset: 3 Episodic Other and unspecified benign neoplasm (1 source) Benign neoplasm of skin of right upper eyelid; Translations: [Other benign neoplasm of skin of right upper eyelid, including canthus] Episodic Other eye disorders (13 sources) Bilateral vitreous floaters; Translations: [Other vitreous opacities, bilateral] Onset: 5 08-17-2016 Chronic Other eye disorders (2 sources) Chalazion of right upper eyelid; Translations: [Chalazion right upper eyelid] Episodic Other female genital disorders (1 source) Abnormal uterine bleeding; Translations: [Abnormal uterine and vaginal bleeding, unspecified] Chronic Other female genital disorders (1 source) Vaginal irritation; Translations: [Other specified noninflammatory disorders of vagina] 08-11-2024 Episodic Other gastrointestinal disorders (1 source) Constipation; Translations: [Constipation, unspecified] 12-27-2024 Episodic Other injuries and conditions due to external causes (1 source) Other specified injuries of unspecified lower leg, initial encounter; Translations: [Other specified injuries of unspecified lower leg, initial encounter] Onset: 5 Episodic Other nervous system disorders (10 sources) Abnormal gait; Translations: [Abnormality of gait] Episodic Other nervous system disorders (1 source) Unspecified abnormalities of gait and mobility; Translations: [Unspecified abnormalities of gait and mobility] Onset: 3 Episodic Other nutritional; endocrine; and metabolic disorders (1 source) Obese class II; Translations: [Obesity, unspecified] Onset: 4 07-24-2023 Chronic Other skin disorders (13 sources) Lichen sclerosus et atrophicus; Translations: [Circumscribed scleroderma] Onset: 3 11-04-2012 Chronic Residual codes; unclassified (10 sources) Confusional state; Translations: [Disorientation, unspecified] 05-30-2023 Episodic Residual codes; unclassified (3 sources) Disorientation, unspecified; Translations: [Unspecified psychosis] 05-30-2023 Episodic Residual codes; unclassified (2 sources) Other specified health status; Translations: [Other specified health status] Onset: 4 Episodic Residual codes; unclassified (1 source) Edema, unspecified; Translations: [Edema, unspecified] Onset: 5 Episodic Spondylosis; intervertebral disc disorders; other back problems (20 sources) Lumbar spondylosis; Translations: [Lumbosacral spondylosis without myelopathy] Onset: 2 Chronic Unclassified (2 sources) Low back pain, unspecified; Translations: [Low back pain, unspecified] Onset: 3 Past or Other Problems Problem Classification Problem Date Documented Da te Episodic/Chronic Blindness and vision defects (20 sources) Hypermetropia; Translations: [Hypermetropia, unspecified eye] Onset: 09-14-2014 09-14-2014 Episodic Malaise and fatigue (1 source) Other fatigue; Translations: [Other fatigue] Onset: 06-25-2024 Episodic Other connective tissue disease (13 sources) Muscle weakness; Translations: [Muscle weakness (generalized)] Onset: 02-19-2019 02-19-2019 Episodic Other injuries and conditions due to external causes (13 sources) Foreign body in conjunctival sac; Translations: [...] Test Name Value Interpretation Reference Range Facility [facility] 12-29-2024 [facility] Letter Text Normal [facility] Abdomen/Pelvis W IV Cont ONL Yon 12-27-2024 Abdomen/Pelvis W IV Cont ONLY [facility] Imaging Services [address] [place] [id number] Abdomen/Pelvis W IV Cont ONLY MR#: [id number] Acct: [id number] Name: KAIA DE PAZ Rep #: [id number] : [id number] F [id number] From: Sebastian Londono MD PCP: Dr. Romeo Shankar MD Status: REG ER Study: Abdomen/Pelvis W IV Cont ONLY Date of Exam: Exam# [id number] Ordering Dr: Cm Vasques MD PROCEDURE: ABDOMEN/PELVIS W IV CONT ONLY 12/27/2024 REASON FOR EXAM: RIGHT SIDED ABD PAIN TECHNIQUE: ABDOMEN/PELVIS W IV CONT ONLY Coronal and Sagittal reconstruction series were provided. CONTRAST: Isovue 370 VOLUME: 100 mL One or more dose reduction techniques were used (e.g., Automated exposure control, adjustment of the mA and/or kV according to patient size, use of iterative reconstruction technique. RADIATION DOSE SUMMARY: CTDlvol: 23.79 mGy DLP: 1262.27 mGycm COMPARISON: CT abdomen and pelvis 07/22/2024. FINDINGS: Lung bases: Clear. Liver: Unremarkable. Gallbladder: Nondistended. No biliary dilation. Spleen: Unremarkable. Pancreas: Unremarkable. Adrenals: Unremarkable. Kidneys: No hydronephrosis. No nephrolithiasis. Bladder: Unremarkable. Reproductive Organs: Unremarkable. Bowel: Sigmoid colon diverticulosis with no evidence of acute diverticulitis. Appendix: No evidence of acute appendicitis. Lymph nodes: No lymphadenopathy. Vasculature: No aneurysm. Mild atherosclerotic calcifications. Peritoneum / Retroperitoneum: No free air or free fluid. Bones: No acute bony abnormalities. CT/Abdomen/Pelvis W IV Cont ONLY IMPRESSION: No acute abdominopelvic abnormalities. Reading Location: [facility] CC: Dr. Cm Vsaques MD; Dr. Romeo Shankar MD Communications Administrator: Signed Normal [facility] Absolute lymphocyte countOrd ered By: Cm Vasques on 12-27-2024 Lymphocytes Auto (Unsp spec) [#/Vol] 1.14 10*3/uL 0.83-4.51 [facility] Absolute neutrophil countOrd ered By: Cm Vasques on 12-27-2024 Neutrophils (Bld) [#/Vol] 3.0 10*3/uL 2.0-7.7 [facility] Anion gap in Serum or Plasma Ordered By: Cm Vasques on 12-27-2024 Anion gap [Moles/Vol] 12 mmol/L 5-15 [facility] Automated lymphocyte count a s percentage of total leukocytesOrdered By: Cm Vasques on 12-27-2024 Lymphocytes/100 WBC Auto (Unsp spec) 24.7 % - [facility] BUN/creatinine ratioOrdered By: Cm Vasques on 12-27-2024 Urea nitrogen/Creatinine [Mass ratio] 14.1 mg/mg 10- [facility] Basophil percentageOrdered B y: Cm Vasques on 12-27-2024 Basophils/100 WBC (Bld) 0.2 % 0-1 [facility] Bilirubin Test strip Ql (U)O rdered By: Cm Vasques on 12-27-2024 Bilirubin Ql (U) Negative Negative [facility] Bilirubin, totalOrdered By: Cm Vasques on 12-27-2024 Bilirubin [Mass/Vol] 0.38 mg/dL 0.00-1.30 [facility] CBC W/Diff, Automatedon 12-06 Absolute Lymph 1.14 X10 3/uL Normal 0.83-4.51 [facility] Comment on above: Performed By: #### L 500.4050, L100.0100 ####[facility] [address] [place], [address] Absolute Neut 3.0 X10 3/uL Normal 2.0-7.7 [facility] Comment on above: Performed By: #### L 500.4050, L100.0100 ####[facility] [address] [place], [address] Basophils/100 WBC (Bld) 0.2 % Normal 0-1 [facility] Comment on above: Performed By: #### L 500.4050, L100.0100 ####[facility] [address] [place], [address] Eosinophils/100 WBC (Bld) 2.0 % Normal 0-5 [facility] Comment on above: Performed By: #### L 500.4050, L100.0100 ####[facility] [address] [place], [address] Erythrocyte distribution width (RBC) [Ratio] 14.3 % Normal 11.6-14.6 [facility] Comment on above: Performed By: #### L 500.4050, L100.0100 ####[facility] [address] [place], [address] Hematocrit (Bld) [Volume fraction] 40.3 % Normal 37-47 [facility] Comment on above: Performed By: #### L 500.4050, L100.0100 ####[facility] [address] [place], [address] Hemoglobin (Bld) [Mass/Vol] 13.2 g/dL Normal 12.0-15.0 [facility] Comment on above: Performed By: #### L 500.4050, L100.0100 ####[facility] [address] [place], [address] IG% 0.200 Normal 0.0-0.9 [facility] Comment on above: Result Comment: IG% - Immature Granulocytes (promyelocytes, myelocytes and metamyelocytes) > 1% indicates that a LEFT SHIFT is Present. Performed By: #### L 500.4050, L100.0100 ####[facility] [address] [place], [address] Lymphocytes/100 WBC (Bld) 24.7 % Normal 19-41 [facility] Comment on above: Performed By: #### L 500.4050, L100.0100 ####[facility] [address] [place], [address] MCH (RBC) [Entitic mass] 29.5 pg Normal 27.0-32.0 [facility] Comment on above: Performed By: #### L 500.4050, L100.0100 ####[facility] [address] [place], [address] MCHC (RBC) [Mass/Vol] 32.8 g/dL Normal 32-36 [facility] Comment on above: Performed By: #### L 500.4050, L100.0100 ####[facility] [address] [place], [address] MCV (RBC) [Entitic vol] 90.2 fL Normal 81-99 [facility] Comment on above: Performed By: #### L 500.4050, L100.0100 ####[facility] [address] [place], [address] Monocytes/100 WBC (Bld) 8.0 % Normal 0-10 [facility] Comment on above: Performed By: #### L 500.4050, L100.0100 ####[facility] [address] [place], [address] Neutrophils/100 WBC (Bld) 64.9 % Normal 47-70 [facility] Comment on above: Performed By: #### L 500.4050, L100.0100 ####[facility] [address] [place], [address] Nucleated RBC (Bld) [#/Vol] 0 10*3/uL Normal 0-5 [facility] Comment on above: Performed By: #### L 500.4050, L100.0100 ####[facility] [address] [place], [address] Platelet mean volume (Bld) [Entitic vol] 10.2 fL Normal 6.2-12.0 [facility] Comment on above: Performed By: #### L 500.4050, L100.0100 ####[facility] [address] [place], [address] Platelets (Bld) [#/Vol] 205 10*3/uL Normal 150-450 [facility] Comment on above: Performed By: #### L 500.4050, L100.0100 ####[facility] [address] [place], [address] RBC (Bld) [#/Vol] 4.47 10*6/uL Normal 4.2-5.4 [facility] Comment on above: Performed By: #### L 500.4050, L100.0100 ####[facility] [address] [place], [address] RDW SD 47.5 fl High 35.1-43.9 [facility] Comment on above: Performed By: #### L 500.4050, L100.0100 ####[facility] [address] [place], [address] WBC (Bld) [#/Vol] 4.6 10*3/uL Normal 4.4-11.0 [facility] Comment on above: Performed By: #### L 500.4050, L100.0100 ####[facility] [address] [place], [address] Carbon dioxide, total [Moles /volume] in Central venous bloodOrdered By: Cm Vasques on 12-27-2024 CO2 [Moles/Vol] 24.2 mmol/L 21.0-32.0 [facility] Chloride assayOrdered By: Kirs Vasques on 12-27-2024 Chloride [Moles/Vol] 106 mmol/L 98-108 [facility] Comprehensive Metabolic Prof ilon 12-27-2024 Albumin [Mass/Vol] 4.2 g/dL Normal 3.4-4.8 [facility] Comment on above: Performed By: #### L 500.4050, L100.0100 ####[facility] [address] [place], [address] Albumin/Globulin [Mass ratio] 1.5 {ratio} Normal 0.9-2.4 [facility] Comment on above: Performed By: #### L 500.4050, L100.0100 ####[facility] [address] [place], [address] ALK PHOS 69 U/L Normal 35-104 [facility] [facility] Comment on above: Performed By: #### L 500.4050, L100.0100 ####[facility] [address] [place], [address] ALT [Catalytic activity/Vol] 20 U/L Normal <=34 [facility] Comment on above: Performed By: #### L 500.4050, L100.0100 ####[facility] [address] [place], [address] AST [Catalytic activity/Vol] 30 U/L Normal <=31 [facility] Comment on above: Performed By: #### L 500.4050, L100.0100 ####[facility] [address] [place], [address] Bilirubin [Mass/Vol] 0.38 mg/dL Normal 0.00-1.30 [facility] Comment on above: Performed By: #### L 500.4050, L100.0100 ####[facility] [address] [place], [address] BUN/CRE 14.1 RATIO Normal 10-20 [facility] Comment on above: Performed By: #### L 500.4050, L100.0100 ####[facility] [address] [place], [address] Calcium [Mass/Vol] 9.4 mg/dL Normal 7.6-11.0 [facility] Comment on above: Performed By: #### L 500.4050, L100.0100 ####[facility] [address] [place], [address] Chloride [Moles/Vol] 106 mmol/L Normal 98-108 [facility] Comment on above: Performed By: #### L 500.4050, L100.0100 ####[facility] [address] [place], [address] CO2 [Moles/Vol] 24.2 mmol/L Normal 21.0-32.0 [facility] Comment on above: Performed By: #### L 500.4050, L100.0100 ####[facility] [address] [place], [address] Creatinine [Mass/Vol] 0.88 mg/dL Normal 0.70-1.20 [facility] Comment on above: Performed By: #### L 500.4050, L100.0100 ####[facility] [address] [place], [address] ECRCL 68.89 ml/min Normal 50-250 [facility] Comment on above: Performed By: #### L 500.4050, L100.0100 ####[facility] [address] [place], [address] GAP 12 Normal 5-15 [facility] Comment on above: Performed By: #### L 500.4050, L100.0100 ####[facility] [address], [address] GFR/1.73 sq M.predicted among non-blacks MDRD (S/P/Bld) [Vol rate/Area] 72 mL/min/{1.73_m2} Normal >60 [facility] Comment on above: Result Comment: mL/m in/1.73m2 CKD-EPI Creatinine Equation (2020) Performed By: #### L 500.4050, L100.0100 ####[facility] [address] [place], [address] Globulin (S) [Mass/Vol] 2.8 g/dL Normal 2.2-4.2 [facility] Comment on above: Performed By: #### L 500.4050, L100.0100 ####[facility] [address] [place], [address] Glucose [Mass/Vol] 109 mg/dL High 70-99 [facility] Comment on above: Performed By: #### L 500.4050, L100.0100 ####[facility] [address] [place], [address] Potassium [Moles/Vol] 4.2 mmol/L Normal 3.3-5.1 [facility] Comment on above: Performed By: #### L 500.4050, L100.0100 ####[facility] [address] [place], [address] Sodium [Moles/Vol] 142 mmol/L Normal 133-145 [facility] Comment on above: Performed By: #### L 500.4050, L100.0100 ####[facility] [address] [place], [address] T PROT 7.0 g/dL Normal 5.9-8.4 [facility] Comment on above: Performed By: #### L 500.4050, L100.0100 ####[facility] [address] [place], [address] Urea nitrogen [Mass/Vol] 12 mg/dL Normal 4-19 [facility] Comment on above: Performed By: #### L 500.4050, L100.0100 ####[facility] [address] [place], [address] Emergency Department Summary on 12-27-2024 Emergency Department Summary [facility] Medical Records Department [address] [place] [address] Emergency Department Summary 12/27/24 MR#: [id number] Acct: [id number] Name: KAIA DE PAZ Rep #: [id number] : [id number] From: Cm Vasques MD PCP: Dr. Romeo Shankar MD Status:REG ER Location: ED HPI HPI - GI History of Present Illness Chief Complaint: Abd Pain Informant: patient Narrative Narrative: 69-year-old female states she woke up this morning with burning pain in her right abdomen that radiates to her low back feels a little sharp there. She had a very small bowel movement this morning that did not seem to make a difference. No urinary symptoms, no nausea or vomiting. No fevers or chills or chest symptoms. No history of any abdominal surgeries in the past. She has been having constipation/bowel movement caliber changes in the past month, so she had a colonoscopy because of that about a week ago and was told she has diverticulosis but was otherwise unremarkable. She states she did not have any discomfort after dinner last night or prior to going to bed at all, and she has not had anything to eat yet today. [facility] Medical History Bilirubinuria Urinary frequency Confusion Spinal stenosis Back pain Hyperlipidemia GERD (gastroesophageal reflux disease) Osteoarthritis Hypothyroid Home Medications ???Medication ???Instructions ???Recorded ???Last Taken ???Type levothyroxine 50 mcg tablet 50 mcg PO DAILY 05/04/20 05/12/20 History omeprazole 20 mg capsule,delayed 20 mg PO DAILY PRN GERD 05/04/20 0 05/12/20 History release rosuvastatin 10 mg tablet 5 mg PO DAILY 05/04/20 Unknown His tory cholecalciferol (vitamin D3) 50 50 mcg PO DAILY 05/30/23 Unknown H istory mcg (2,000 unit) capsule (Vitamin D3) Allergy/AdvReac Type Severity Reaction Status Date / Time Penicillins Allergy Mild Rash Verified 12/27/24 09:32 Family History Father Diabetes Mother Parkinson disease Surgical History History of radiofrequency ablation (RFA) of nerve of lumbar spine H/O laparoscopy Social History household members: spouse housing: house Smoking Status: Never smoker alcohol intake: never what type of physical activity do you participate in: none do you feel safe at home: Yes ROS ROS ED Constitutional Constitutional ED: Denies chills or fever(s) Eyes Eyes: Denies change in vision or diplopia ENT ENT ED: Denies rhinorrhea or sore throat Cardiovascular Cardiovascular: Denies chest pain or palpitations Respiratory/Chest Respiratory/Chest: Denies cough or dyspnea Gastrointestinal Gastrointestinal: Reports abdominal pain and constipation; Denies diarrhea, hematochezia, melena, nausea or vomiting Genitourinary Genitourinary ED: Denies dysuria or hematuria Musculoskeletal Musculoskeletal: Denies back pain or neck pain Integumentary Denies abscess or rash Neurologic Neurologic: Denies headache(s), paresthesias or weakness Psychiatric Psychiatric: Denies anxiety or suicidal thoughts EXAM Physical Exam Const Vital Signs: 12/27/24 09:32 12/27/24 11:31 Temperature 98.6 F Temperature Source Oral Pulse Rate 50 L 49 L Respiratory Rate 18 Blood Pressure 141/72 H 130/70 H Blood Pressure Mean 95 90 Pulse Ox 97 96 Oxygen Delivery Method Room Air Room Air Positive well nourished and well developed Constitutional Narrative: Well-appearing no distress General Appearance ED: well developed and NAD HEENT Reports moist mucous membranes normocephalic and atraumatic Eyes PERRL and EOMs intact bilaterally Neck full ROM and supple Resp normal respiratory effort and clear to auscultation bilaterally Cardio regular rate, regular rhythm and no murmurs GI non-distended GI Narrative: Mild tenderness throughout the right abdomen from about McBurney's point all the way up to the lateral aspect of the costal margin. No guarding or rebound. Negative Thornton. No other areas of abdominal tenderness, normal inspection of the abdominal wall and no palpable masses. Auscultation: normoactive bowel sounds Palpation: soft Back/Spine no CVA tenderness General Back: other FROM Extremity normal to inspection General Extremety ED: Negative for edema, pulses abnormal or tenderness General Extremity: Negative for edema or pulses abnormal Neuro oriented x3, CN's II-XII intact bilaterally and no sensory deficits noted Sensorium / Orientation: awake and alert Motor Exam: strength 5/5 throughout Skin no rashes or lesions noted and no wounds MDM MDM MDM Narrative Medical (more content not included)... Normal [facility] Eosinophil percentageOrdered By: Cm Vasques on 12-27-2024 Eosinophils/100 WBC (Bld) 2.0 % 0-5 [facility] Erythrocyte distribution wid th ratioOrdered By: Cm Vasques on 12-27-2024 Erythrocyte distribution width (RBC) [Ratio] 14.3 % 11.6-14.6 [facility] Erythrocyte distribution wid th standard deviationOrdered By: Cm Vasques on 12-27-2024 Erythrocyte distribution width (RBC) [Ratio] 47.5 fl High 35.1-43.9 [facility] Glomerular filtration rate ( GFR) estimation/1.73 sq m using serum, plasma, or whole bOrdered By: Cm Vasques on 12-27-2024 GFR/1.73 sq M.predicted among non-blacks MDRD (S/P/Bld) [Vol rate/Area] 72 mL/min/{1.73_m2} >60 [facility] Comment on above: mL/min/1.73m2 CKD-EP I Creatinine Equation (2020) Hematocrit Auto (Bld) [Volum e fraction]Ordered By: Cm Vasques on 12-27-2024 Hematocrit (Bld) [Volume fraction] 40.3 % 37-47 [facility] Hemoglobin measurementOrdere d By: Cm Vasques on 12-27-2024 Hemoglobin (Bld) [Mass/Vol] 13.2 g/dL 12.0-15.0 [facility] Immature granulocytes/100 WB C Auto (Bld)Ordered By: Cm Vasques on 12-27-2024 Immature granulocytes/100 WBC (Bld) 0.200 % 0.0-0.9 [facility] Comment on above: IG% - Immature Granu locytes (promyelocytes, myelocytes and metamyelocytes) > 1% indicates that a LEFT SHIFT is Present. Ketones Test strip Ql (U)Ord ered By: Cm Vasques on 12-27-2024 Ketones Ql (U) Negative Negative [facility] Laboratory - Chemistry and C hemistry - challengeOrdered By: Cm Vasques on 12-27-2024 AST [Catalytic activity/Vol] 30 U/L <32 [facility] MCV (mean corpuscular volume ) determinationOrdered By: Cm Vasques on 12-27-2024 MCV (RBC) [Entitic vol] 90.2 fL 81-99 [facility] Mean corpuscular hemoglobin (MCH) determinationOrdered By: mC Vasques on 12-27-2024 MCH (RBC) [Entitic mass] 29.5 pg 27.0-32.0 [facility] Mean corpuscular hemoglobin concentration (MCHC) determinationOrdered By: Cm Vasques on 12-27-2024 MCHC (RBC) [Mass/Vol] 32.8 g/dL 32-36 [facility] Mean platelet volume determi nationOrdered By: Cm Vasques on 12-27-2024 Platelet mean volume (Bld) [Entitic vol] 10.2 fL 6.2-12.0 [facility] Microscopic analysis of urin e for red blood cells (RBC)Ordered By: Cm Vasques on 12-27-2024 Microscopic analysis of urine for red blood cells (RBC) 0 SEEN /hpf 0-5 [facility] Monocyte percentageOrdered B y: Cm Vasques on 12-27-2024 Monocytes/100 WBC (Bld) 8.0 % 0-10 [facility] Mucus LM Ql (Urine sed)Order ed By: Cm Vasques on 12-27-2024 Mucus Ql (Urine sed) 0 SEEN /hpf [facility] Neutrophil percentageOrdered By: Cm Vasques on 12-27-2024 Neutrophils/100 WBC (Bld) 64.9 % 47-70 [facility] Nitrite Test strip Ql (U)Ord ered By: Cm Vasques on 12-27-2024 Nitrite Ql (U) Negative Negative [facility] Nucleated red blood cell per centageOrdered By: Cm Vasques on 12-27-2024 Nucleated RBC/100 WBC (Bld) [Ratio] 0 % 0-5 [facility] Platelet countOrdered By: Kris Vasques on 12-27-2024 Platelets (Bld) [#/Vol] 205 10*3/uL 150-450 [facility] Potassium measurement (mass/ volume)Ordered By: Cm Vasques on 12-27-2024 Potassium (Unsp spec) [Mass/Vol] 4.2 mmol/L 3.3-5.1 [facility] Protein Test strip Ql (U)Ord ered By: Cm Vasques on 12-27-2024 Protein Ql (U) 15 mg/dl High Negative [facility] RBC Auto (Bld) [#/Vol]Ordere d By: Cm Vasques on 12-27-2024 RBC (Bld) [#/Vol] 4.47 10*6/uL 4.2-5.4 [facility] Serum creatinine measurement (mass/volume)Ordered By: Cm Vasques on 12-27-2024 Creatinine [Mass/Vol] 0.88 mg/dL 0.70-1.20 [facility] Serum globulin measurementOr dered By: Cm Vasques on 12-27-2024 Globulin (S) [Mass/Vol] 2.8 g/dL 2.2-4.2 [facility] Serum glucose measurement (m ass/volume)Ordered By: Cm Vasques on 12-27-2024 Glucose [Mass/Vol] 109 mg/dL High 70-99 [facility] Serum or plasma alanine aguirre otransferase (ALT) measurementOrdered By: Cm Vasques on 12-27-2024 ALT [Catalytic activity/Vol] 20 U/L <35 [facility] Serum or plasma albumin tim urement (mass/volume)Ordered By: Cm Vasques on 12-27-2024 Albumin [Mass/Vol] 4.2 g/dL 3.4-4.8 [facility] Serum or plasma albumin/glob ulin mass ratioOrdered By: Cm Vasques on 12-27-2024 Albumin/Globulin [Mass ratio] 1.5 {ratio} 0.9-2.4 [facility] Serum or plasma alkaline keith sphatase measurementOrdered By: Cm Vasques on 12-27-2024 ALP [Catalytic activity/Vol] 69 U/L 35-104 [facility] Serum or plasma calcium tim urement (mass/volume)Ordered By: Cm Vasques on 12-27-2024 Calcium [Mass/Vol] 9.4 mg/dL 7.6-11.0 [facility] Serum or plasma urea nitroge n measurement (mass/volume)Ordered By: Cm Vasques on 12-27-2024 Urea nitrogen [Mass/Vol] 12 mg/dL 4-19 [facility] Sodium levelOrdered By: Isaac Vasques on 12-27-2024 Sodium [Moles/Vol] 142 mmol/L 133-145 [facility] Squamous epithelial cells de tection in urine sediment by light microscopyOrdered By: Cm Vasques on 12-27-2024 Epithelial cells.squamous LM Ql (Urine sed) 0-5 SEEN /hpf - [facility] Total proteinOrdered By: Nicci Vasques on 12-27-2024 Protein [Mass/Vol] 7.0 g/dL 5.9-8.4 [facility] Urinalysis, Completeon 12-27 EPI,SQUAMOUS 0-5 SEEN Normal 09-13 [facility] Comment on above: Order Comment: CLEAN CATCH Performed By: #### L 400.0001 ####[facility] [address] [facility] [address] BACTERIA 0 SEEN Normal None Seen [facility] Comment on above: Order Comment: CLEAN CATCH Performed By: #### L 400.0001 ####[facility] [address] [place], [address] Mucus Ql (Urine sed) 0 SEEN Normal [facility] Comment on above: Order Comment: CLEAN CATCH Performed By: #### L 400.0001 ####[facility] [address] [place], [address] RBC 0 SEEN Normal 0-5 [facility] Comment on above: Order Comment: CLEAN CATCH Performed By: #### L 400.0001 ####[facility] [address] [place], [address] WBC 0 SEEN Normal 0-5 [facility] Comment on above: Order Comment: CLEAN CATCH Performed By: #### L 400.0001 ####[facility] [address] [place], [address] Urine clarityOrdered By: Nicci Vasques on 12-27-2024 Clarity (U) Clear Clear [facility] Urine color determinationOrd ered By: Cm Vasques on 12-27-2024 Color (U) Yellow Yellow [facility] Urine glucose detectionOrder ed By: Cm Vasques on 12-27-2024 Glucose Ql (U) Normal mg/dl Normal [facility] Urine leukocyte esterase det ection by dipstickOrdered By: Cm Vasques on 12-27-2024 Leukocyte esterase Test strip Ql (U) 25 /ul High Negative [facility] Urine pHOrdered By: Cm Vasques on 12-27-2024 pH (U) 8.0 [pH] 5.0 - 8.0 [facility] Urine sediment bacteria coun t by microscopy (number/high power field)Ordered By: Cm Vasques on 12-27-2024 Bacteria LM.HPF (Urine sed) [#/Area] 0 /[HPF] None Seen [facility] Urine specific gravity measu rementOrdered By: Cm Vasques on 12-27-2024 Specific gravity (U) [Rel density] 1.010 1.002-1.030 [facility] Urine urobilinogen measureme ntOrdered By: Cm Vasques on 12-27-2024 Urobilinogen Ql (U) Normal mg/dl Normal [facility] White blood cell (WBC) count Ordered By: Cm Vasques on 12-27-2024 WBC (Bld) [#/Vol] 4.6 10*3/uL 4.4-11.0 [facility] White blood cell countOrdere d By: Cm Vasques on 12-27-2024 White blood cell count 0 SEEN /hpf 0-5 [facility] Venous duplex ultrasound rep ortOrdered By: Salomón White on 12-03-2024 US Vein [facility] [address] [place] [address] Venous Duplex US - Marlon Extrem 12/02/24 1326 MR#: [id number] Acct: [id number] Name: KAIA DE PAZ Rep #:[id number] : 1955 69 From: Salomón Barbosa Attending [...] preliminary report was called and/or faxed to [facility]. VL/Venous Duplex US - Marlon Extrem Interpretation [...] Shankar Chi Performed By: Katerina Magaña RVT 12/03/24 0944 Date _ Salomón White MD CC: Dr. Romeo Shankar MD ~ Date Dictated: 12/02/24 1326 Date Transcribed: 12/03/24 0944 Communications Administrator: Signed [facility] Work Phone: Absolute lymphocyte countOrd ered By: Romeo Shankar on 12-02-2024 Lymphocytes Auto (Unsp spec) [#/Vol] 1.29 10*3/uL 0.83-4.51 [facility] Absolute neutrophil countOrd ered By: Romeo Shankar on 12-02-2024 Neutrophils (Bld) [#/Vol] 3.4 10*3/uL 2.0-7.7 [facility] Anion gap in Serum or Plasma Ordered By: Romeo Shankar on 12-02-2024 Anion gap [Moles/Vol] 15 mmol/L 5-15 [facility] Automated lymphocyte count a s percentage of total leukocytesOrdered By: Romeo Shankar on 12-02-2024 Lymphocytes/100 WBC Auto (Unsp spec) 24.4 % 19- [facility] BUN/creatinine ratioOrdered By: [facility] Raad on 12-02-2024 Urea nitrogen/Creatinine [Mass ratio] 15.2 mg/mg 10- [facility] Basophil percentageOrdered B y: Romeo Shankar on 12-02-2024 Basophils/100 WBC (Bld) 0.6 % 0-1 [facility] Bilirubin, totalOrdered By: Romeo Shankar on 12-02-2024 Bilirubin [Mass/Vol] 0.56 mg/dL 0.00-1.30 [facility] CBC W/Diff, Automatedon 11-05 Absolute Lymph 1.29 X10 3/uL Normal 0.83-4.51 [facility] Comment on above: Performed By: #### L 506.1001, L500.4050, L100.0100, L501.9520 ####[facility] [address] [place], [address] Absolute Neut 3.4 X10 3/uL Normal 2.0-7.7 [facility] Comment on above: Performed By: #### L 506.1001, L500.4050, L100.0100, L501.9520 ####[facility] [address] [place], [address] Basophils/100 WBC (Bld) 0.6 % Normal 0-1 [facility] Comment on above: Performed By: #### L 506.1001, L500.4050, L100.0100, L501.9520 ####[facility] [address] [place], [address] Eosinophils/100 WBC (Bld) 2.1 % Normal 0-5 [facility] Comment on above: Performed By: #### L 506.1001, L500.4050, L100.0100, L501.9520 ####[facility] [address] [place], [address] Erythrocyte distribution width (RBC) [Ratio] 14.5 % Normal 11.6-14.6 [facility] Comment on above: Performed By: #### L 506.1001, L500.4050, L100.0100, L501.9520 ####[facility] [address] [place], [address] Hematocrit (Bld) [Volume fraction] 41.6 % Normal 37-47 [facility] Comment on above: Performed By: #### L 506.1001, L500.4050, L100.0100, L501.9520 ####[facility] [address] [place], [address] Hemoglobin (Bld) [Mass/Vol] 13.5 g/dL Normal 12.0-15.0 [facility] Comment on above: Performed By: #### L 506.1001, L500.4050, L100.0100, L501.9520 ####[facility] [address] [place], [address] IG% 0.200 Normal 0.0-0.9 [facility] Comment on above: Result Comment: IG% - Immature Granulocytes (promyelocytes, myelocytes and metamyelocytes) > 1% indicates that a LEFT SHIFT is Present. Performed By: #### L 506.1001, L500.4050, L100.0100, L501.9520 ####[facility] [address] [place], [address] Lymphocytes/100 WBC (Bld) 24.4 % Normal 19-41 [facility] Comment on above: Performed By: #### L 506.1001, L500.4050, L100.0100, L501.9520 ####[facility] [address] [place], [address] MCH (RBC) [Entitic mass] 29.6 pg Normal 27.0-32.0 [facility] Comment on above: Performed By: #### L 506.1001, L500.4050, L100.0100, L501.9520 ####[facility] [address] [place], [address] MCHC (RBC) [Mass/Vol] 32.5 g/dL Normal 32-36 [facility] Comment on above: Performed By: #### L 506.1001, L500.4050, L100.0100, L501.9520 ####[facility] [address] [place], [address] MCV (RBC) [Entitic vol] 91.2 fL Normal 81-99 [facility] Comment on above: Performed By: #### L 506.1001, L500.4050, L100.0100, L501.9520 ####[facility] [address] [place], [address] Monocytes/100 WBC (Bld) 8.7 % Normal 0-10 [facility] Comment on above: Performed By: #### L 506.1001, L500.4050, L100.0100, L501.9520 ####[facility] [address] [place], [address] Neutrophils/100 WBC (Bld) 64.0 % Normal 47-70 [facility] Comment on above: Performed By: #### L 506.1001, L500.4050, L100.0100, L501.9520 ####[facility] [address] [place], [address] Nucleated RBC (Bld) [#/Vol] 0 10*3/uL Normal 0-5 [facility] Comment on above: Performed By: #### L 506.1001, L500.4050, L100.0100, L501.9520 ####[facility] [address] [place], [address] Platelet mean volume (Bld) [Entitic vol] 10.5 fL Normal 6.2-12.0 [facility] Comment on above: Performed By: #### L 506.1001, L500.4050, L100.0100, L501.9520 ####[facility] [address] [place], [address] Platelets (Bld) [#/Vol] 202 10*3/uL Normal 150-450 [facility] Comment on above: Performed By: #### L 506.1001, L500.4050, L100.0100, L501.9520 ####[facility] [address] [place], [address] RBC (Bld) [#/Vol] 4.56 10*6/uL Normal 4.2-5.4 [facility] Comment on above: Performed By: #### L 506.1001, L500.4050, L100.0100, L501.9520 ####[facility] [address] [place], [address] RDW SD 48.7 fl High 35.1-43.9 [facility] Comment on above: Performed By: #### L 506.1001, L500.4050, L100.0100, L501.9520 ####[facility] [address] [place], [address] WBC (Bld) [#/Vol] 5.3 10*3/uL Normal 4.4-11.0 [facility] Comment on above: Performed By: #### L 506.1001, L500.4050, L100.0100, L501.9520 ####[facility] [address] [place], [address] Carbon dioxide, total [Moles /volume] in Central venous bloodOrdered By: Romeo Shankar on 12-02-2024 CO2 [Moles/Vol] 21.0 mmol/L 21.0-32.0 [facility] Chloride assayOrdered By: Jarrell Shankar on 12-02-2024 Chloride [Moles/Vol] 106 mmol/L 98-108 [facility] Comprehensive Metabolic Prof ilon 12-02-2024 Albumin [Mass/Vol] 4.4 g/dL Normal 3.4-4.8 [facility] Comment on above: Performed By: #### L 506.1001, L500.4050, L100.0100, L501.9520 ####[facility] [address] [place], [address] Albumin/Globulin [Mass ratio] 1.5 {ratio} Normal 0.9-2.4 [facility] Comment on above: Performed By: #### L 506.1001, L500.4050, L100.0100, L501.9520 ####[facility] [address] [place], [address] ALK PHOS 74 U/L Normal 35-104 [facility] Comment on above: Performed By: #### L 506.1001, L500.4050, L100.0100, L501.9520 ####[facility] [address], [address] ALT [Catalytic activity/Vol] 30 U/L Normal <=34 [facility] Comment on above: Performed By: #### L 506.1001, L500.4050, L100.0100, L501.9520 ####[facility] [address] [place], [address] AST [Catalytic activity/Vol] 36 U/L High <=31 [facility] Comment on above: Performed By: #### L 506.1001, L500.4050, L100.0100, L501.9520 ####[facility] [address] [place], [address] Bilirubin [Mass/Vol] 0.56 mg/dL Normal 0.00-1.30 [facility] Comment on above: Performed By: #### L 506.1001, L500.4050, L100.0100, L501.9520 ####[facility] [address] [place], [address] BUN/CRE 15.2 RATIO Normal 10-20 [facility] Comment on above: Performed By: #### L 506.1001, L500.4050, L100.0100, L501.9520 ####[facility] [address] [place], [address] Calcium [Mass/Vol] 9.6 mg/dL Normal 7.6-11.0 [facility] Comment on above: Performed By: #### L 506.1001, L500.4050, L100.0100, L501.9520 ####[facility] [address] [place], [address] Chloride [Moles/Vol] 106 mmol/L Normal 98-108 [facility] Comment on above: Performed By: #### L 506.1001, L500.4050, L100.0100, L501.9520 ####[facility] [address] [place], [address] CO2 [Moles/Vol] 21.0 mmol/L Normal 21.0-32.0 [facility] Comment on above: Performed By: #### L 506.1001, L500.4050, L100.0100, L501.9520 ####[facility] [address] [place], [address] Creatinine [Mass/Vol] 0.88 mg/dL Normal 0.70-1.20 [facility] Comment on above: Performed By: #### L 506.1001, L500.4050, L100.0100, L501.9520 ####[facility] [address] [place], [address] GAP 15 Normal 5-15 [facility] Comment on above: Performed By: #### L 506.1001, L500.4050, L100.0100, L501.9520 ####[facility] [address] [place], [address] GFR/1.73 sq M.predicted among non-blacks MDRD (S/P/Bld) [Vol rate/Area] 71 mL/min/{1.73_m2} Normal >60 [facility] Comment on above: Result Comment: mL/m in/1.73m2 CKD-EPI Creatinine Equation (2020) Performed By: #### L 506.1001, L500.4050, L100.0100, L501.9520 ####[facility] [address] [place], [address] Globulin (S) [Mass/Vol] 2.9 g/dL Normal 2.2-4.2 [facility] Comment on above: Performed By: #### L 506.1001, L500.4050, L100.0100, L501.9520 ####[facility] [address] [place], [address] Glucose [Mass/Vol] 88 mg/dL Normal 70-99 [facility] Comment on above: Performed By: #### L 506.1001, L500.4050, L100.0100, L501.9520 ####[facility] [address] [place], [address] Potassium [Moles/Vol] 3.7 mmol/L Normal 3.3-5.1 [facility] Comment on above: Performed By: #### L 506.1001, L500.4050, L100.0100, L501.9520 ####[facility] [address] [place], [address] Sodium [Moles/Vol] 143 mmol/L Normal 133-145 [facility] Comment on above: Performed By: #### L 506.1001, L500.4050, L100.0100, L501.9520 ####[facility] [address] [place], [address] T PROT 7.3 g/dL Normal 5.9-8.4 [facility] Comment on above: Performed By: #### L 506.1001, L500.4050, L100.0100, L501.9520 ####[facility] [address] [place], [address] Urea nitrogen [Mass/Vol] 13 mg/dL Normal 4-19 [facility] Comment on above: Performed By: #### L 506.1001, L500.4050, L100.0100, L501.9520 ####[facility] [address] [place], [address] Eosinophil percentageOrdered By: Romeo Shankar on 12-02-2024 Eosinophils/100 WBC (Bld) 2.1 % 0-5 [facility] Erythrocyte distribution wid th ratioOrdered By: Romeo Shankar on 12-02-2024 Erythrocyte distribution width (RBC) [Ratio] 14.5 % 11.6-14.6 [facility] Erythrocyte distribution wid th standard deviationOrdered By: Romeo Shankar 12-02-2024 Erythrocyte distribution width (RBC) [Ratio] 48.7 fl High 35.1-43.9 [facility] Glomerular filtration rate ( GFR) estimation/1.73 sq m using serum, plasma, or whole bOrdered By: Romeo Shankar 12-02-2024 GFR/1.73 sq M.predicted among non-blacks MDRD (S/P/Bld) [Vol rate/Area] 71 mL/min/{1.73_m2} >60 [facility] Comment on above: mL/min/1.73m2 CKD-EP I Creatinine Equation (2020) Hematocrit Auto (Bld) [Volum e fraction]Ordered By: Romeo Shankar 12-02-2024 Hematocrit (Bld) [Volume fraction] 41.6 % 37-47 [facility] Hemoglobin measurementOrdere d By: Romeo Shankar 12-02-2024 Hemoglobin (Bld) [Mass/Vol] 13.5 g/dL 12.0-15.0 [facility] Immature granulocytes/100 WB C Auto (Bld)Ordered By: Romeo Shankar 12-02-2024 Immature granulocytes/100 WBC (Bld) 0.200 % 0.0-0.9 [facility] Comment on above: IG% - Immature Granu locytes (promyelocytes, myelocytes and metamyelocytes) > 1% indicates that a LEFT SHIFT is Present. Laboratory - Chemistry and C hemistry - challengeOrdered By: Romeo Shankar 12-02-2024 AST [Catalytic activity/Vol] 36 U/L High <32 [facility] MCV (mean corpuscular volume ) determinationOrdered By: Romeo Shankar 12-02-2024 MCV (RBC) [Entitic vol] 91.2 fL 81-99 [facility] Mean corpuscular hemoglobin (MCH) determinationOrdered By: Romeo Shankar 12-02-2024 MCH (RBC) [Entitic mass] 29.6 pg 27.0-32.0 [facility] Mean corpuscular hemoglobin concentration (MCHC) determinationOrdered By: Romeo Shankar on 12-02-2024 MCHC (RBC) [Mass/Vol] 32.5 g/dL 32-36 [facility] Mean platelet volume determi nationOrdered By: Romeo Shankar on 12-02-2024 Platelet mean volume (Bld) [Entitic vol] 10.5 fL 6.2-12.0 [facility] Monocyte percentageOrdered B y: Romeo Shankar on 12-02-2024 Monocytes/100 WBC (Bld) 8.7 % 0-10 [facility] Neutrophil percentageOrdered By: Romeo Shankar on 12-02-2024 Neutrophils/100 WBC (Bld) 64.0 % 47-70 [facility] Nucleated red blood cell per centageOrdered By: Romeo Shankar on 12-02-2024 Nucleated RBC/100 WBC (Bld) [Ratio] 0 % 0-5 [facility] Platelet countOrdered By: Jarrell Shankar on 12-02-2024 Platelets (Bld) [#/Vol] 202 10*3/uL 150-450 [facility] Potassium measurement (mass/ volume)Ordered By: Romeo Shankar on 12-02-2024 Potassium (Unsp spec) [Mass/Vol] 3.7 mmol/L 3.3-5.1 [facility] RBC Auto (Bld) [#/Vol]Ordere d By: Romeo Shankar on 12-02-2024 RBC (Bld) [#/Vol] 4.56 10*6/uL 4.2-5.4 [facility] Serum creatinine measurement (mass/volume)Ordered By: Romeo Shankar 12-02-2024 Creatinine [Mass/Vol] 0.88 mg/dL 0.70-1.20 [facility] Serum globulin measurementOr dered By: Romeo Shankar 12-02-2024 Globulin (S) [Mass/Vol] 2.9 g/dL 2.2-4.2 [facility] Serum glucose measurement (m ass/volume)Ordered By: Romeo Shankar 12-02-2024 Glucose [Mass/Vol] 88 mg/dL 70-99 [facility] Serum or plasma alanine aguirre otransferase (ALT) measurementOrdered By: Romeo Shankar 12-02-2024 ALT [Catalytic activity/Vol] 30 U/L <35 [facility] Serum or plasma albumin tim urement (mass/volume)Ordered By: Romeo Shankar 12-02-2024 Albumin [Mass/Vol] 4.4 g/dL 3.4-4.8 [facility] Serum or plasma albumin/glob ulin mass ratioOrdered By: Romeo Shankar 12-02-2024 Albumin/Globulin [Mass ratio] 1.5 {ratio} 0.9-2.4 [facility] Serum or plasma alkaline keith sphatase measurementOrdered By: Romeo Shankar 12-02-2024 ALP [Catalytic activity/Vol] 74 U/L 35-104 [facility] Serum or plasma calcium tim urement (mass/volume)Ordered By: Romeo Shankar 12-02-2024 Calcium [Mass/Vol] 9.6 mg/dL 7.6-11.0 [facility] Serum or plasma urea nitroge n measurement (mass/volume)Ordered By: Romeo Shankar 12-02-2024 Urea nitrogen [Mass/Vol] 13 mg/dL 4-19 [facility] Sodium levelOrdered By: Romeo Shankar 12-02-2024 Sodium [Moles/Vol] 143 mmol/L 133-145 [facility] TSH DL <= 0.005 mIU/L QnOrde red By: Romeo Shankar 12-02-2024 TSH Qn 1.510 uIU/mL 0.300-4.200 [facility] Thyroid Stim Hormone (TSH)on 12-02-2024 TSH 1.510 uIU/mL Normal 0.300-4.200 [facility] Comment on above: Performed By: #### L 506.1001, L500.4050, L100.0100, L501.9520 ####[facility] [address] [place], [address] Total proteinOrdered By: Romeo Shankar 12-02-2024 Protein [Mass/Vol] 7.3 g/dL 5.9-8.4 [facility] Venous Duplex US - Marlon Extre mon 12-02-2024 Venous Duplex US - Marlon Extrem [facility] [address] [place] [address] Venous Duplex US - Marlon Extrem 12/02/24 1326 MR#: [id number] Acct: [id number] Name: KAIA DE PAZ Rep #: [id number] : 1955 69 From: Salomón White MD [...] preliminary report was called and/or faxed to [facility]. VL/Venous Duplex US - Marlon Extrem Interpretation [...] CC: Dr. Romeo Shankar MD Date Dictated: 12/02/24 1326 Date Transcribed: 12/03/24943 Communications Administrator: Signed Normal [facility] Vitamin D,25 Hydroxyon 12-02 Vitamin D 25-OH 26.6 ng/mL Low 30-100 [facility] Comment on above: Result Comment: Emma min D Status Deficiency: <20 ng/mL (50nmol/L) Insufficiency: 20-30 ng/mL (50-75 nmol/L) Sufficiency: 30-100 ng/mL (75-250 nmol/L) Toxicity: >100 ng/mL (>250 nmol/L) Performed By: #### L 506.1001, L500.4050, L100.0100, L501.9520 ####[facility] [address] [facility] [place], [place], [address] White blood cell (WBC) count Ordered By: Romeo Shankar on 12-02-2024 WBC (Bld) [#/Vol] 5.3 10*3/uL 4.4-11.0 [facility] Knee 4 or More Viewson 11-28 Knee 4 or More Views [facility] Imaging Services [address] [place] [address] Knee 4 or More Views MR#: [id number] Acct: [id number] Name: KAIA DE PAZ Rep #: [id number] : 1955 F 69 From: Dewayne Thomas MD PCP: Dr. Romeo Shankar MD Status: PRE ER Study: Knee 4 or More Views Date of Exam: 11/28/24 Exam# [id number] Ordering Dr: Provider,Ed P. PROCEDURE: KNEE 4 OR MORE VIEWS [...] the sequelae of old injury. Reading Location: [id number] CC: Dr. Romeo Shankar MD; ED PHYSICIAN PROVIDER Communications Administrator: Signed Normal [facility] Tibia Fibula 2 Viewson 11-28 Tibia Fibula 2 Views [facility] Imaging Services [address] [place] [address] Tibia Fibula 2 Views MR#: [id number] Acct: [id number] Name: KAIA DE PAZ Rep #: [id number] : 1955 F 69 From: Mayank Hoyos MD PCP: Dr. Romeo Shankar MD Status: DEP ER Study: Tibia Fibula 2 Views Date of Exam: 11/28/24 Exam# [id number] Ordering Dr: Kaye,Ed P. EXAM: Right tibia and fibula. CLINICAL HISTORY: Pain. COMPARISON: None. TECHNIQUE: Two views. FINDINGS: No evidence of acute fracture or dislocation. The soft tissues are unremarkable. RAD/Tibia Fibula 2 Views IMPRESSION: No acute osseous abnormalities. Reading Location: [id number] CC: Dr. Romeo Shankar MD; ED PHYSICIAN PROVIDER Communications Administrator: Signed Normal [facility] CNOVon 09-26-2024 CNOV Office Visit (OBGYWM) KAIA DE PAZ ([id number]) 1955 F Date Time Provider Department 09/26/24 8:20 AM ZENOBIA RODRIGUEZ OBGYWSarah During your visit today, we recorded the following information about you: Blood pressure Weight 126/80 92.5 kg Zenobia Rodriguez MD 09/26/2024 8:38 AM Signed Medical Oncologist offered: Patient declinesMarivel Marti is a 69 [...] contact the office. Referring Provider: ZENOBIA RODRIGUEZ [[id number]] Allergies As of Date: 09/26/2024 Noted Allergy Reaction PENICILLINS 05/18/2005 2 - Rash Date Reviewed: 09/26/2024 Reviewed by: Danielle Perry MA - Fully Assessed Primary Visit Diagnosis:Postmenopa usal bleeding [N95.0] Order(s):ENDOMETRIAL BIOPSY [3643894] Order #: [id number] SURGICAL PATHOLOGY [[id number]] Order #: [id number] Prescriptions as of 09/26/2024 - miSOPROStol (CYTOTEC) [...] eyes [* (more content not included)... Normal [facility] Pathology biopsy report Daniel (Tiss)on 09-26-2024 AP DISCLAIMER Normal [facility] Comment on above: Order Comment: Speci men Type: TISSUE SPECIMEN Ordering Facility: [facility] Address: [address] [place] [address] Result Comment: Divine stratton Developed Test (LDT) Disclaimer: Performance characteristics of immunohistochemical, immunofluorescent, and chromogenic in-situ hybridization tests have been determined by the performing laboratory within [facility]'s [facility] Pathology and Laboratory Medicine Department ([facility], [facility], [facility], [facility], [facility], [facility], or [facility]) in a manner consistent with CLIA requirements. One or more of these tests may not have been cleared or approved by the FDA. [facility] is regulated under CLIA as qualified to perform high-complexity testing. These tests are used for clinical purposes. These should not be regarded as investigational or for research. Positive and negative controls stain appropriately. Performed By: #### 6 6121-5 #### [facility] CLIA [id number] [address] [place] [address] [place] CASE REPORT Normal [facility] Comment on above: Order Comment: Speci men Type: TISSUE SPECIMEN Ordering Facility: [facility] Address: [address] [place] [address] Result Comment: Surg ica Pathology Report Case: [id number] Authorizing Provider: Zenobia Rodriguez, Collected: 09/26/2024 08:41 AM Ordering Location: OB/Gynecology Received: 09/26/2024 12:06 PM Pathologist: Eduardo Feliz MD Specimen: Endometrium, Biopsy Performed By: #### 6 6121-5 #### [facility] CLIA [id number] [address] [place] [address] [place] CLINICAL HISTORY postmenopausal bleeding Normal [facility] Comment on above: Order Comment: Speci men Type: TISSUE SPECIMEN Ordering Facility: [facility] Address: [address] [place] [address] Performed By: #### 6 6121-5 #### [facility] CLIA [id number] [address] [place] [address] [place] FINAL DIAGNOSIS Normal [facility] Comment on above: Order Comment: Speci men Type: TISSUE SPECIMEN Ordering Facility: [facility] Address: [address] [place] [address] Result Comment: Endo metrium, biopsy: - Benign endometrial epithelium. ACV/bs 09/30/2024 at 0817 EDT Performed By: #### 6 6121-5 #### [facility] CLIA [id number] [address] [place] [address] [place] FINAL PERFORMING LAB Normal [facility] Comment on above: Order Comment: Speci men Type: TISSUE SPECIMEN Ordering Facility: [facility] Address: [address] [place] [address] Result Comment: Diag nostic interpretation performed at: [facility], [address] [place] [address] CLIA# [id number] Volunteer Recruitment Coordinator: Jake Pop MD Performed By: #### 6 6121-5 #### [facility] CLIA [id number] [address] [place] [address] [place] GROSS DESCRIPTION Normal [facility] Comment on above: Order Comment: Speci men Type: TISSUE SPECIMEN Ordering Facility: [facility] Address: [address], [place] [address] Result Comment: A. E ndometrium, Biopsy Received in formalin are multiple [place], soft feathery segments of tissue admixed with mucinous material aggregating to 2.5 x 0.9 x 0.2 cm. Totally submitted in one cassette. [facility] September 26, 2024 9:05 PM Gross examination performed at [facility], [address] [place] [address] Performed By: #### 6 6121-5 #### [facility] CLIA [id number] [address] [place] [address] CNPNon 09-24-2024 CNPN Telephone (OBGYWM) KAIA DE PAZ ([id number]) 1955 F Date Time Provider Department 09/24/24 ZENOBIA RODRIGUEZ OBGYWM During your visit today, we recorded the following information about you: Helen Milner RN 09/24/2024 9:01 AM Signed Zenobia Rodriguez MD to [facility] Ob-Space Planner Pool (Selected Message) 09/24/24 8:27 AM Result [...] Status:Closed by EDELMIRA WISEMAN on 09/24/24 Normal [facility] Magnetic resonance imaging r eportOrdered By: Kai Jane on 08-20-2024 Study report [facility] Imaging Services [address] [place] [address] Spine Lumbar (Routine) MR#: [id number] Acct: [id number] Name: KAIA DE PAZ Rep #: [id number] : 1955 F 69 From: Brissa Jane MD PCP: Dr. Romeo Shankar MD Status: MARELY JANG Study:Spine Lumbar (Routine) Date of Exam: 08/18/24 Exam# [id number] Ordering Dr: Romeo Shankar MD EXAM: MRI [...] IMPRESSION: Spondylosis. Degenerative disc disease. Reading Location: [place] [address] CC: Dr. Romeo Shankar MD ~ Communications Administrator: Signed [facility] Spine Lumbar (Routine)on Spine Lumbar (Routine) [facility] Imaging Services [address] [place] [address] Spine Lumbar (Routine) MR#: [id number] Acct: [id number] Name: KAIA DE PAZ Rep #: [id number] : 1955 F 69 From: Kai olivier MD PCP: Dr. Romeo Shankar MD Status: REG CLI Study: Spine Lumbar (Routine) Date of Exam: 08/18/24 Exam# [id number] Ordering Dr: Romeo Shankar MD EXAM: MRI [...] IMPRESSION: Spondylosis. Degenerative disc disease. Reading Location: [facility] CC: Dr. Romeo Shankar MD Communications Administrator: Signed [facility] 08-12-2024 [facility] Telephone (OBGYWM) KAIA DE PAZ ([id number]) 1955 F Date Time Provider Department 08/12/24 ZENOBIA RODRIGUEZ OBGYWM During your visit today, we recorded the following information about you: Helen Milner RN 08/12/2024 9:11 AM Signed Zenobia Rodriguez MD to [facility] Ob-Space Planner Pool 08/12/24 9:00 AM Result Note Please [...] Status:Closed by LINDA IRVIN on 08/12/24 Normal [facility] BACTERIAL VAGINOSIS NAATon 0 08-11-2024 Lactobacillus crispatus+gasseri+jense qasim + Gardnerella vaginalis + Atopobium vaginae rRNA ANGEL+probe Ql (Vag fld) Detected Abnormal Not detected [facility] Comment on above: Order Comment: Speci men Type: SWAB Ordering Facility: [facility] Address: [address] [place] [address] Performed By: #### C VTV, BVAMP #### [facility] CLIA [id number] [address] [place] [address] [place] KATHLEEN/TRICHOMONAS NAATon 0 08-11-2024 C. glabrata RNA ANGEL+probe Ql (Vag fld) Not detected Normal Not detected [facility] Comment on above: Order Comment: Speci men Type: SWAB Ordering Facility: [facility] Address: [address] [place] [address] Performed By: #### C VTV, BVAMP #### [facility] CLIA [id number] [address] [place] [address] [place] Kathleen sp DNA ANGEL+probe Ql (Vag fld) Not detected Normal Not detected [facility] Comment on above: Order Comment: Speci men Type: SWAB Ordering Facility: [facility] Address: [address] [place] [address] Result Comment: The Kathleen species group target includes C. albicans, C. tropicalis, C. parapsilosis, and C. dubliniensis. Performed By: #### C VTV, BVAMP #### [facility] CLIA [id number] [address] [place] [address] T. vaginalis DNA ANGEL+probe Ql (Unsp spec) Not detected Normal Not detected [facility] Comment on above: Order Comment: Speci men Type: SWAB Ordering Facility: [facility] Address: [address] [place] [address] Performed By: #### C VTV, BVAMP #### [facility] CLIA [id number] [address] [place] [address] OF [place] CNOVon 08-11-2024 CNOV Office Visit (OBGYWM) KAIA DE PAZ ([id number]) 1955 F Date Time Provider Department 08/11/24 3:00 PM ZENOBIA RODRIGUEZ OBGYWM During your visit today, we recorded the following information about you: Blood pressure Weight 120/70 93 kg Zenobia Rodriguez MD 08/11/2024 3:51 PM Signed Medical Oncologist offered: Patient declines. Kaia De Paz is a 69 year old female who [...] Living2 SAB0 IAB0 Ectopic0 Multiple0 Live Births2 Space Planner History LMP: 05/07/2005, Postmenopausal Age at Menarche: Age at First : Age at Menopause: Space Planner History Comments: Sexual Activity: Not Asked; Male; [...] discussed with the Patient or Patient's Authorized Associate Professor Of Physics. As applicable, any other physician, advance practice provider, medical student, or other health professional student that will be observing or involved in the sensitive examination for educational or training purposes was discussed with the Patient or Authorized Associate Professor Of Physics. The Patient or Authorized Associate Professor Of Physics has agreed to proceed with the sensitive [...] external genitalia normal, normal Bartholin's glands, urethra, [place]'s glands, no vulvar lesions, no cervical lesions, [...] of Date (more content not included)... Normal [facility] PAP TESTon 08-11-2024 ADEQUACY Normal [facility] Comment on above: Order Comment: Speci men Type: FLUID SPECIMEN Ordering Facility: [facility] Address: [address] [place] [address] Result Comment: Sati sfactory for interpretation. No endocervical component Performed By: #### L [id number] #### [facility] CLIA [id number] [address] [place] [address] [place] [address] [place] CASE REPORT Normal [facility] Comment on above: Order Comment: Speci men Type: FLUID SPECIMEN Ordering Facility: [facility] Address: [address] [place] [address] Result Comment: Gyne cologic Cytology Report Case: [id number] Authorizing Provider: Zenobia Rodriguez, Collected: 08/11/2024 03:43 PM MD Ordering Location: OB/Gynecology Received: 08/11/2024 04:42 PM First Screen: Linda Contreras, YOUSIF, ASCP Pathologist: Nasra Roche MD Specimen: Pap Test, ThinPrep, Cervix Performed By: #### L [id number] #### [facility] CLIA [id number] [address] [place] [address] [place] CLINICAL HISTORY, CYTOLOGY, SURGICAL TECHNOLOGIST Routine Exam Normal [facility] Comment on above: Order Comment: Speci men Type: FLUID SPECIMEN Ordering Facility: [facility] Address: [address] [place] [address] Result Comment: Vagi nal Spotting Post Menopausal Performed By: #### L [id number] #### [facility] CLIA [id number] [address] [place] [address] [place] FINAL PERFORMING LAB Normal [facility] Comment on above: Order Comment: Speci men Type: FLUID SPECIMEN Ordering Facility: [facility] Address: [address] [place] [address] Result Comment: Tech nical component, customs agent screening performed at [facility], [address] [place] [address] CLIA# [id number] Diagnostic interpretation performed at [facility], [address] [place], [place] [address] CLIA# [id number] Volunteer Recruitment Coordinator: Kyler Car M.D. Performed By: #### L [id number] #### [facility] CLIA [id number] [address] [place] [address] [place] INTERPRETATION, CYTOLOGY, SURGICAL TECHNOLOGIST Normal [facility] Comment on above: Order Comment: Speci men Type: FLUID SPECIMEN Ordering Facility: [facility] Address: [address] [place] [address] Result Comment: Nega tive for intraepithelial lesion or malignancy. at 1749 EDT Performed By: #### L [id number] #### [facility] CLIA [id number] [address] [place] [address] [place] PAP DISCLAIMER COMMENT The Pap Smear is a screening test for cervical cancer. False negative results occur with all screening tests, emphasizing the need for rescreening at recommended intervals, and clinical correlation. Normal [facility] Comment on above: Order Comment: Speci men Type: FLUID SPECIMEN Ordering Facility: [facility] Address: [address] [place] [address] Performed By: #### L [id number] #### [facility] CLIA [id number] [address] [place] [address] [place] PAP COUPON REDEMPTION CLERK COMMENT This specimen has been analyzed by the ThinPrep Imaging System, an automated imaging and review system, which assists the laboratory in evaluating cells on ThinPrep Pap tests. Following automated imaging, selected omalley from every slide are reviewed by a customs agent. Normal [facility] Comment on above: Order Comment: Speci men Type: FLUID SPECIMEN Ordering Facility: [facility] Address: [address] [place] [address] Performed By: #### L [id number] #### [facility] CLIA [id number] [address] [place], [place] [address] [place] Urine Cultureon 07-25-2024 [facility] Mixed Gram Positive Organisms [place] Count 11,000-25,000 MIXC Mixed contaminants. Submit a new specimen if indicated. Normal [facility] Comment on above: Performed By: #### M 100.2200 #### [facility] [address] [place], [place], [address] Abdomen/Pelvis without Conto n 07-22-2024 Abdomen/Pelvis without Cont [facility] Imaging Services [address] [place], [place] [id number] Abdomen/Pelvis without Cont MR#: [id number] Acct: [id number] Name: KAIA DE PAZ Rep #: [id number] : 1955 F 69 From: Yemi Weems MD PCP: Dr. Romeo Shankar MD Status: REG CLI Study: Abdomen/Pelvis without Cont Date of Exam: 07/05 12/29 Exam# [id number] Ordering Dr: Romeo Shankar MD PROCEDURE: ABDOMEN/PELVIS [...] 2. Additional description as above. Reading Location: [facility] CC: Dr. Romeo Shankar MD Communications Administrator: Signed Normal [facility] L/S Spine Min 4 Viewson 07-05 L/S Spine Min 4 Views [facility] Imaging Services [address] [place], [place] [address] (751) L/S Spine Min 4 Views MR#: [id number] Acct: [id number] Name: KAIA DE PAZ Rep #: [id number] : 1955 F 69 From: Yemi Alcantara MD PCP: Dr. Romeo Shankar MD Status: REG CLI Study: L/S Spine Min 4 Views Date of Exam: 07/22/24 Exam# [id number] Ordering Dr: Romeo Shankar MD EXAM: XR [...] IMPRESSION: Degenerative changes as above. Reading [facility] CC: Dr. Romeo Shankar MD Communications Administrator: Signed Normal [facility] Urine cultureOrdered By: Romeo Shankar on 07-22-2024 Bacteria identified Cx Nom (U) Positive Abnormal [facility] [id number] DOrdered By: Connie Shankar on 06-05-2024 Vitamin D 25-Hydroxy 34.4 ng/mL [facility] Comment on above: Vitamin D 25(OH) Sta tus Range Deficiency <20 ng/mL (50nmol/L) Insufficiency 20 - 30 ng/mL (50 - 75 nmol/L) Sufficiency 30 - 100 ng/mL (75 - 250 nmol/L) Toxicity >100 ng/mL (>250 nmol/L) Absolute neutrophil countOrd ered By: Romeo Raad on 06-05-2024 Neutrophils (Bld) [#/Vol] 2.9 10*3/uL 2.0-7.7 [facility] Albumin to globulin ratioOrd ered By: Romeo Shankar on 06-05-2024 Albumin/Globulin [Mass ratio] 1.0 {ratio} 0.9-2.4 [facility] Basophil percentageOrdered B y: Romeo Vincentok on 06-05-2024 Basophils/100 WBC (Bld) 0.2 % 0-1 [facility] Bilirubin, totalOrdered By: Romeo Shankar on 06-05-2024 Bilirubin [Mass/Vol] 0.40 mg/dL 0.20-1.00 [facility] Comment on above: For patients on eltr ombopag therapy, use of Dimension Sabin TBIL is not recommended. Blood urea nitrogen (BUN)/cr eatinine ratioOrdered By: Romeo Shankar on 06-05-2024 Urea nitrogen/Creatinine [Mass ratio] 15.2 mg/mg 10-20 [facility] CBC W/Diff, Automatedon 05-09 Absolute Lymph 1.41 X10 3/uL Normal 0.83-4.51 [facility] Comment on above: Performed By: #### L 501.9520, L506.1000, L500.4050, L100.0100 #### [facility] [address] [place], [address] Absolute Neut 2.9 X10 3/uL Normal 2.0-7.7 [facility] Comment on above: Performed By: #### L 501.9520, L506.1000, L500.4050, L100.0100 #### [facility] [address] [place], [address] Basophils/100 WBC (Bld) 0.2 % Normal 0-1 [facility] Comment on above: Performed By: #### L 501.9520, L506.1000, L500.4050, L100.0100 #### [facility] [address] [place], [address] Eosinophils/100 WBC (Bld) 1.7 % Normal 0-5 [facility] Comment on above: Performed By: #### L 501.9520, L506.1000, L500.4050, L100.0100 #### [facility] [address] [place], [address] Erythrocyte distribution width (RBC) [Ratio] 14.0 % Normal 11.6-14.6 [facility] Comment on above: Performed By: #### L 501.9520, L506.1000, L500.4050, L100.0100 #### [facility] [address] [place], [address] Hematocrit (Bld) [Volume fraction] 40.8 % Normal 37-47 [facility] Comment on above: Performed By: #### L 501.9520, L506.1000, L500.4050, L100.0100 #### [facility] [address] [place], [address] Hemoglobin (Bld) [Mass/Vol] 13.3 g/dL Normal 12.0-15.0 [facility] Comment on above: Performed By: #### L 501.9520, L506.1000, L500.4050, L100.0100 #### [facility] [address] [place], [address] IG% 0.000 Normal 0.0-0.9 [facility] Comment on above: Result Comment: IG% - Immature Granulocytes (promyelocytes, myelocytes and metamyelocytes) > 1% indicates that a LEFT SHIFT is Present. Performed By: #### L 501.9520, L506.1000, L500.4050, L100.0100 #### [facility] [address] [place], [address] Lymphocytes/100 WBC (Bld) 30.0 % Normal 19-41 [facility] Comment on above: Performed By: #### L 501.9520, L506.1000, L500.4050, L100.0100 #### [facility] [address] [place], [address] MCH (RBC) [Entitic mass] 29.0 pg Normal 27.0-32.0 [facility] Comment on above: Performed By: #### L 501.9520, L506.1000, L500.4050, L100.0100 #### [facility] [address] [place], [address] MCHC (RBC) [Mass/Vol] 32.6 g/dL Normal 32-36 [facility] Comment on above: Performed By: #### L 501.9520, L506.1000, L500.4050, L100.0100 #### [facility] [address] [place], [address] MCV (RBC) [Entitic vol] 89.1 fL Normal 81-99 [facility] Comment on above: Performed By: #### L 501.9520, L506.1000, L500.4050, L100.0100 #### [facility] [address] [place], [address] Monocytes/100 WBC (Bld) 7.2 % Normal 0-10 [facility] Comment on above: Performed By: #### L 501.9520, L506.1000, L500.4050, L100.0100 #### [facility] [address] [place], [address] Neutrophils/100 WBC (Bld) 60.9 % Normal 47-70 [facility] Comment on above: Performed By: #### L 501.9520, L506.1000, L500.4050, L100.0100 #### [facility] [address] [place], [address] Nucleated RBC (Bld) [#/Vol] 0 10*3/uL Normal 0-5 [facility] Comment on above: Performed By: #### L 501.9520, L506.1000, L500.4050, L100.0100 #### [facility] [address] [place], [address] Platelet mean volume (Bld) [Entitic vol] 10.3 fL Normal 6.2-12.0 [facility] Comment on above: Performed By: #### L 501.9520, L506.1000, L500.4050, L100.0100 #### [facility] [address] [place], [address] Platelets (Bld) [#/Vol] 223 10*3/uL Normal 150-450 [facility] Comment on above: Performed By: #### L 501.9520, L506.1000, L500.4050, L100.0100 #### [facility] [address] [place], [address] RBC (Bld) [#/Vol] 4.58 10*6/uL Normal 4.2-5.4 [facility] Comment on above: Performed By: #### L 501.9520, L506.1000, L500.4050, L100.0100 #### [facility] [address] [place], [address] RDW SD 45.4 fl High 35.1-43.9 [facility] Comment on above: Performed By: #### L 501.9520, L506.1000, L500.4050, L100.0100 #### [facility] [address] [place], [address] WBC (Bld) [#/Vol] 4.7 10*3/uL Normal 4.4-11.0 [facility] Comment on above: Performed By: #### L 501.9520, L506.1000, L500.4050, L100.0100 #### [facility] [address] [place], [address] Carbon dioxide measurementOr dered By: Romeo Shankar on 06-05-2024 CO2 [Moles/Vol] 25.0 mmol/L 21.0-32.0 [facility] Chloride measurementOrdered By: Romeo Shankar on 06-05-2024 Chloride [Moles/Vol] 110 mmol/L High 98-107 [facility] Comprehensive Metabolic Prof ilon 06-05-2024 Albumin [Mass/Vol] 3.9 g/dL Normal 3.2-5.0 [facility] Comment on above: Performed By: #### L 501.9520, L506.1000, L500.4050, L100.0100 #### [facility] [address] [place], [address] Albumin/Globulin [Mass ratio] 1.0 {ratio} Normal 0.9-2.4 [facility] Comment on above: Performed By: #### L 501.9520, L506.1000, L500.4050, L100.0100 #### [facility] [address] [place], [address] ALK P 65 U/L Normal 45-117 [facility] Comment on above: Performed By: #### L 501.9520, L506.1000, L500.4050, L100.0100 #### [facility] [address] [place], [address] ALT [Catalytic activity/Vol] 40 U/L Normal 13-56 [facility] Comment on above: Performed By: #### L 501.9520, L506.1000, L500.4050, L100.0100 #### [facility] [address] [place], [address] AST [Catalytic activity/Vol] 25 U/L Normal 15-37 [facility] Comment on above: Performed By: #### L 501.9520, L506.1000, L500.4050, L100.0100 #### [facility] [address] [place], [address] Bilirubin [Mass/Vol] 0.40 mg/dL Normal 0.20-1.00 [facility] Comment on above: Result Comment: For patients on eltrombopag therapy, use of Dimension Sabin TBIL is not recommended. Performed By: #### L 501.9520, L506.1000, L500.4050, L100.0100 #### [facility] [address] [place], [address] BUN/CRE 15.2 RATIO Normal 10-20 [facility] Comment on above: Performed By: #### L 501.9520, L506.1000, L500.4050, L100.0100 #### [facility] [address] [place], [address] CA,Total 9.2 mg/dL Normal 8.5-10.1 [facility] Comment on above: Performed By: #### L 501.9520, L506.1000, L500.4050, L100.0100 #### [facility] [address] [place], [address] Chloride [Moles/Vol] 110 mmol/L High 98-107 [facility] Comment on above: Performed By: #### L 501.9520, L506.1000, L500.4050, L100.0100 #### [facility] [address] [place], [address] CO2 [Moles/Vol] 25.0 mmol/L Normal 21.0-32.0 [facility] Comment on above: Performed By: #### L 501.9520, L506.1000, L500.4050, L100.0100 #### [facility] [address] [place], [address] Creatinine [Mass/Vol] 0.92 mg/dL Normal 0.55-1.02 [facility] Comment on above: Result Comment: The validity of the calculated GFR GFRAA in patients over 70 years has not been determined. Clinical correlation is essential. Performed By: #### L 501.9520, L506.1000, L500.4050, L100.0100 #### [facility] [address] [place], [address] EST GFR - AA 78 mL/min Normal >60 [facility] Comment on above: Result Comment: Afri can [place] GFR Calc Performed By: #### L 501.9520, L506.1000, L500.4050, L100.0100 #### [facility] [address] [place], [address] GAP 8 Normal 5-15 [facility] Comment on above: Performed By: #### L 501.9520, L506.1000, L500.4050, L100.0100 #### [facility] [address] [place], [address] GFR/1.73 sq M.predicted among non-blacks MDRD (S/P/Bld) [Vol rate/Area] 65 mL/min/{1.73_m2} Normal >60 [facility] Comment on above: Result Comment: Non- GFR Calc Performed By: #### L 501.9520, L506.1000, L500.4050, L100.0100 #### [facility] [address] [place], [address] Globulin (S) [Mass/Vol] 3.9 g/dL Normal 2.2-4.2 [facility] Comment on above: Performed By: #### L 501.9520, L506.1000, L500.4050, L100.0100 #### [facility] [address] [place], [address] Glucose [Mass/Vol] 104 mg/dL Normal 74-106 [facility] Comment on above: Result Comment: Fast ing Glucose result from 100 to 125 mg/dL suggests IMPAIRED HOMEOSTASIS per A.D.A. criteria. Performed By: #### L 501.9520, L506.1000, L500.4050, L100.0100 #### [facility] [address] [place], [address] Potassium [Moles/Vol] 3.7 mmol/L Normal 3.5-5.1 [facility] Comment on above: Performed By: #### L 501.9520, L506.1000, L500.4050, L100.0100 #### [facility] [address] [place], [address] Sodium [Moles/Vol] 143 mmol/L Normal 136-145 [facility] Comment on above: Performed By: #### L 501.9520, L506.1000, L500.4050, L100.0100 #### [facility] [address] [place], [address] T PROT 7.8 g/dL Normal 6.4-8.2 [facility] Comment on above: Performed By: #### L 501.9520, L506.1000, L500.4050, L100.0100 #### [facility] [address] [place], [address] Urea nitrogen [Mass/Vol] 14 mg/dL Normal 7-18 [facility] Comment on above: Performed By: #### L 501.9520, L506.1000, L500.4050, L100.0100 #### [facility] [address] [place], [address] Eosinophil percentageOrdered By: Romeo Shankar on 06-05-2024 Eosinophils/100 WBC (Bld) 1.7 % 0-5 [facility] Erythrocyte distribution wid th ratioOrdered By: Romeo Shankar 06-05-2024 Erythrocyte distribution width (RBC) [Ratio] 14.0 % 11.6-14.6 [facility] Erythrocyte distribution wid th standard deviationOrdered By: Romeo Shankar on 06-05-2024 Erythrocyte distribution width (RBC) [Entitic vol] 45.4 fL High 35.1-43.9 [facility] Estimated glomerular filtrat ion rate (GFR) AmericanOrdered By: Romeo Shankar on 06-05-2024 Estimated GFR (MDRD) Amer 78 mL/min >60 [facility] Comment on above: GFR Calc Glomerular filtration rate ( GFR) estimationOrdered By: Romeo Shankar on 06-05-2024 Estimated GFR (MDRD) Non-Af Amer 65 mL/min >60 [facility] Comment on above: Non- GFR Calc Glucose measurementOrdered B y: Romeo Shankar on 06-05-2024 Glucose [Mass/Vol] 104 mg/dL 74-106 [facility] Comment on above: Fasting Glucose resu lt from 100 to 125 mg/dL suggests IMPAIRED HOMEOSTASIS per A.D.A. criteria. Hematocrit Auto (Bld) [Volum e fraction]Ordered By: Romeo Shankar 06-05-2024 Hematocrit (Bld) [Volume fraction] 40.8 % 37-47 [facility] Hemoglobin measurementOrdere d By: Romeo Shankar 06-05-2024 Hemoglobin (Bld) [Mass/Vol] 13.3 g/dL 12.0-15.0 [facility] Immature granulocytes/100 WB C Auto (Bld)Ordered By: Romeo Shankar 06-05-2024 Immature granulocytes/100 WBC (Bld) 0.000 % 0.0-0.9 [facility] Comment on above: IG% - Immature Granu locytes (promyelocytes, myelocytes and metamyelocytes) > 1% indicates that a LEFT SHIFT is Present. Laboratory - Chemistry and C hemistry - challengeOrdered By: Romeo Shankar 06-05-2024 AST [Catalytic activity/Vol] 25 U/L 15-37 [facility] Lymphocytes Auto (Unsp spec) [#/Vol]Ordered By: Romeo Shankar 06-05-2024 Lymphocytes (Bld) [#/Vol] 1.41 10*3/uL 0.83-4.51 [facility] Lymphocytes/100 WBC Auto (Un sp spec)Ordered By: Romeo Shankar on 06-05-2024 Lymphocytes/100 WBC (Bld) 30.0 % 19-41 [facility] MCV (mean corpuscular volume ) determinationOrdered By: Romeo Shankar on 06-05-2024 MCV (RBC) [Entitic vol] 89.1 fL 81-99 [facility] Mean corpuscular hemoglobin (MCH) determinationOrdered By: Romeo Shankar on 06-05-2024 MCH (RBC) [Entitic mass] 29.0 pg 27.0-32.0 [facility] Mean corpuscular hemoglobin concentration (MCHC) determinationOrdered By: Romeo Shankar on 06-05-2024 MCHC (RBC) [Mass/Vol] 32.6 g/dL 32-36 [facility] Mean platelet volume determi nationOrdered By: Romeo Shankar on 06-05-2024 Platelet mean volume (Bld) [Entitic vol] 10.3 fL 6.2-12.0 [facility] Monocyte percentageOrdered B y: Romeo Shankar on 06-05-2024 Monocytes/100 WBC (Bld) 7.2 % 0-10 [facility] Neutrophil percentageOrdered By: Romeo Vincentok on 06-05-2024 Neutrophils/100 WBC (Bld) 60.9 % 47-70 [facility] Nucleated red blood cell per centageOrdered By: Romeo Shankar on 06-05-2024 Nucleated RBC/100 WBC (Bld) [Ratio] 0 % 0-5 [facility] Platelet countOrdered By: Jarrell Sahnkar on 06-05-2024 Platelets (Bld) [#/Vol] 223 10*3/uL 150-450 [facility] Potassium measurementOrdered By: Romeo Shankar on 06-05-2024 Potassium [Moles/Vol] 3.7 mmol/L 3.5-5.1 [facility] RBC Auto (Bld) [#/Vol]Ordere d By: Romeo Shankar on 06-05-2024 RBC (Bld) [#/Vol] 4.58 10*6/uL 4.2-5.4 [facility] Serum anion gap measurementO rdered By: Romeo Shankar on 06-05-2024 Anion gap [Moles/Vol] 8 mmol/L 5-15 [facility] Serum globulin measurementOr dered By: Romeo Shankar on 06-05-2024 Globulin (S) [Mass/Vol] 3.9 g/dL 2.2-4.2 [facility] Serum or plasma alanine aguirre otransferase (ALT) measurementOrdered By: Romeo Shankar on 06-05-2024 ALT [Catalytic activity/Vol] 40 U/L 13-56 [facility] Serum or plasma albumin tim urement (mass/volume)Ordered By: Romeo Shankar on 06-05-2024 Albumin [Mass/Vol] 3.9 g/dL 3.2-5.0 [facility] Serum or plasma alkaline keith sphatase measurementOrdered By: Romeo Shankar 06-05-2024 ALP [Catalytic activity/Vol] 65 U/L 45-117 [facility] Serum or plasma calcium tim urement (mass/volume)Ordered By: Romeo Shankar 06-05-2024 Calcium [Mass/Vol] 9.2 mg/dL 8.5-10.1 [facility] Serum or plasma creatinine m easurement (mass/volume)Ordered By: Romeo Shankar 06-05-2024 Creatinine [Mass/Vol] 0.92 mg/dL 0.55-1.02 [facility] Comment on above: The validity of the calculated GFR & GFRAA in patients over 70 years has not been determined. Clinical correlation is essential. Serum or plasma urea nitroge n measurement (mass/volume)Ordered By: Romeo Shankar on 06-05-2024 Urea nitrogen [Mass/Vol] 14 mg/dL 7-18 [facility] Sodium levelOrdered By: Romeo Shankar 06-05-2024 Sodium [Moles/Vol] 143 mmol/L 136-145 [facility] TSH QnOrdered By: Romeo rdz n 06-05-2024 Thyroid Stimulating Hormone (TSH) 1.200 uIU/mL 0.358-3.740 [facility] Thyroid Stim Hormone (TSH)on 06-05-2024 TSH 1.200 uIU/mL Normal 0.358-3.740 [facility] Comment on above: Performed By: #### L 501.9520, L506.1000, L500.4050, L100.0100 ####[facility] [id number] [place], [address] Total proteinOrdered By: Romeo Shankar on 06-05-2024 Protein [Mass/Vol] 7.8 g/dL 6.4-8.2 [facility] Vitamin D,25 Hydroxyon 06-05 Vitamin D 25-OH 34.4 ng/mL Normal [facility] Comment on above: Result Comment: Emma min D 25(OH) Status Range Deficiency <20 ng/mL (50nmol/L) Insufficiency 20 - 30 ng/mL (50 - 75 nmol/L) Sufficiency 30 - 100 ng/mL (75 - 250 nmol/L) Toxicity >100 ng/mL (>250 nmol/L) Performed By: #### L 501.9520, L506.1000, L500.4050, L100.0100 #### [facility] [address] [place], [address] White blood cell (WBC) count Ordered By: Romeo Shankar on 06-05-2024 WBC (Bld) [#/Vol] 4.7 10*3/uL 4.4-11.0 [facility] D/C Summary- SPon 04-16-2024 D/C Summary- SP [facility] Speech Pathology [facility] [address] [place] [address] [address] [place] [address] / REHABILITATION SERVICES DISCHARGE SUMMARY MR#: [id number] Acct: [id number] Name: KAIA DE PAZ Rep #: [id number] : 1955 68 From: Janice Whitmore M.S., [employer] Referring Dr.: Dr. Romeo Shankar MD Status: REG RCR Insurance: MEDICARE PART A B [address]TH [address] Discharge Summary Discharged: Discharge: KAIA DE PAZ is a 68 year old female who was seen for initial cognitive-linguistic evaluation at [facility] on 06/21/23 s/p hemorrhagic stroke. [...] Pt???s request following script from physician. 04/16/24 105 CC: Dr. Romeo Shankar MD RE Signed Normal [facility] 3D MAMM BILAT SCREENon 02-13 3D MAMM BILAT SCREEN [place] [address] Patient: KAIA DE PAZ Phone#: : [phone] Age: 68 Gender: F Pt. Type: Out Account: [id number] Location: Ordering: ROMEO SHANKAR Exam Date: 02/14/2024/8:15 Family Phys: ROMEO SHANKAR Charge Code: [id number] Physician: [place] Order #: [id number] Dose#: PROCEDURE: BILATERAL SCREENING BREAST TOMOSYNTHESIS MAMMOGRAM WITH CAD COMPARISON: [facility], 3D BILAT SCREEN, 04/20/2022, 14:05. INDICATIONS: SCREENING [...] Ybarra MD on 02/14/2024 at 12:17 Normal [facility] MRI BRAIN WITHOUT CONTRASTon 07-25-2023 MRI BRAIN [...] error, please notify the sender immediately at [phone] and permanently delete the original report and destroy any copies or printouts. Normal [facility] Basophil percentageOrdered B y: Romeo Shankar on 07-05-2023 Chloride [Moles/Vol] 107 mmol/L 98-107 [facility] Glucose [Mass/Vol] 101 mg/dL 74-106 [facility] Comment on above: Fasting Glucose resu lt from 100 to 125 mg/dL suggests IMPAIRED HOMEOSTASIS per A.D.A. criteria. Potassium [Moles/Vol] 4.0 mmol/L 3.5-5.1 [facility] Sodium [Moles/Vol] 139 mmol/L 136-145 [facility] Laboratory - Chemistry and C hemistry - challengeOrdered By: Romeo Shankar on 07-05-2023 CO2 [Moles/Vol] 29.0 mmol/L 21.0-32.0 [facility] Urea nitrogen/Creatinine [Mass ratio] 12.0 mg/mg 10-20 [facility] No Panel InformationOrdered By: Romeo Shankar on 07-05-2023 Estimated GFR (MDRD) Amer 71 mL/min >60 [facility] Comment on above: GFR Calc Estimated GFR (MDRD) Non-Af Amer 59 mL/min >60 [facility] Comment on above: Non- GFR Calc Serum or plasma calcium tim urement (mass/volume)Ordered By: Romeo Shankar on 07-05-2023 Calcium [Mass/Vol] 9.3 mg/dL 8.5-10.1 [facility] Serum or plasma creatinine m easurement (mass/volume)Ordered By: Romeo Shankar on 07-05-2023 Creatinine [Mass/Vol] 1.00 mg/dL 0.55-1.02 [facility] Comment on above: The validity of the calculated GFR & GFRAA in patients over 70 years has not been determined. Clinical correlation is essential. Serum or plasma urea nitroge n measurement (mass/volume)Ordered By: Romeo Shankar on 07-05-2023 Urea nitrogen [Mass/Vol] 12 mg/dL 7-18 [facility] Thin prep Papanicolaou smear with manual screeningOrdered By: Romeo Shankar on 02-29-2024 Thin prep Papanicolaou smear with manual screening 3 5-15 [facility] ECGOrdered By: Shawn leung on 06-05-2023 [facility] Work Phone: Absolute lymphocyte countOrd ered By: Romeo Vincentok on 06-04-2023 Lymphocytes Auto (Unsp spec) [#/Vol] 1.45 10*3/uL 0.83-4.51 [facility] Automated lymphocyte count a s percentage of total leukocytesOrdered By: Romeo Shankar on 06-04-2023 Lymphocytes/100 WBC Auto (Unsp spec) 25.1 % 19-41 [facility] Basophil percentageOrdered B y: Romeo Shankar on 06-04-2023 Basophils/100 WBC (Bld) 0.3 % 0-1 [facility] Bilirubin [Mass/Vol] 0.40 mg/dL 0.20-1.00 [facility] Comment on above: For patients on eltr ombopag therapy, use of Dimension Sabin TBIL is not recommended. Chloride [Moles/Vol] 106 mmol/L 98-107 [facility] Cholesterol [Mass/Vol] 143 mg/dL <200 [facility] Comment on above: <200 mg/dL Desirable 200-240 mg/dL Borderline >240 mg/dL High Risk Eosinophils/100 WBC (Bld) 2.4 % 0-5 [facility] Glucose [Mass/Vol] 108 mg/dL 74-106 [facility] Comment on above: Fasting Glucose resu lt from 100 to 125 mg/dL suggests IMPAIRED HOMEOSTASIS per A.D.A. criteria. Hemoglobin (Bld) [Mass/Vol] 12.7 g/dL 12.0-15.0 [facility] Monocytes/100 WBC (Bld) 7.8 % 0-10 [facility] Neutrophils (Bld) [#/Vol] 3.7 10*3/uL 2.0-7.7 [facility] Neutrophils/100 WBC (Bld) 64.2 % 47-70 [facility] Potassium [Moles/Vol] 3.9 mmol/L 3.5-5.1 [facility] Protein [Mass/Vol] 7.6 g/dL 6.4-8.2 [facility] Sodium [Moles/Vol] 140 mmol/L 136-145 [facility] Triglyceride [Mass/Vol] 128 mg/dL <199 [facility] Comment on above: The drugs N-Acetylcy steine and Metamizole may falsely depress this assay.Serum Triglycerides Reference Interval Normal <150 mg/dL Borderline high 150 - 199 mg/dL High 200 - 499 mg/dL Very High > or = 500 mg/dL WBC (Bld) [#/Vol] 5.8 10*3/uL 4.4-11.0 [facility] Determination of erythrocyte mean corpuscular volume (MCV)Ordered By: Romeo Shankar on 06-04-2023 MCV (RBC) [Entitic vol] 89.7 fL 81-99 [facility] Erythrocyte distribution wid th ratioOrdered By: [facility] on 06-04-2023 Erythrocyte distribution width (RBC) [Ratio] 14.0 % 11.6-14.6 [facility] Erythrocyte distribution wid th standard deviationOrdered By: [facility] on 06-04-2023 Erythrocyte distribution width (RBC) [Entitic vol] 46.2 fL 35.1-43.9 [facility] Hematocrit Auto (Bld) [Volum e fraction]Ordered By: [facility] on 06-04-2023 Hematocrit (Bld) [Volume fraction] 39.4 % 37-47 [facility] Immature granulocytes/100 WB C Auto (Bld)Ordered By: [facility] 06-04-2023 Immature granulocytes/100 WBC (Bld) 0.200 % 0.0-0.9 [facility] Comment on above: IG% - Immature Granu locytes (promyelocytes, myelocytes and metamyelocytes) > 1% indicates that a LEFT SHIFT is Present. Laboratory - Chemistry and C hemistry - challengeOrdered By: [facility] on 06-04-2023 Albumin/Globulin [Mass ratio] 0.9 {ratio} 0.9-2.4 [facility] ALP [Catalytic activity/Vol] 80 U/L 45-117 [facility] ALT [Catalytic activity/Vol] 33 U/L 13-56 [facility] Cholesterol in HDL (Body fld) [Mass/Vol] 58 mg/dL >40 [facility] Comment on above: The drugs N-Acetylcy steine and Metamizole may falsely depress this assay. Reference Range HDL <40 mg/dL Low HDL Cholesterol HDL >or= 60 mg/dL High HDL Cholesterol Cholesterol in LDL (Body fld) [Moles/Vol] 59 mg/dL 0-130 [facility] Cholesterol in VLDL Calc [Moles/Vol] 26 mg/dL 5-40 [facility] CO2 [Moles/Vol] 29.0 mmol/L 21.0-32.0 [facility] Globulin (S) [Mass/Vol] 3.9 g/dL 2.2-4.2 [facility] Urea nitrogen/Creatinine [Mass ratio] 15.6 mg/mg 10-20 [facility] Laboratory - Hematology and Cell countsOrdered By: Romeo Shankar on 06-04-2023 MCH (RBC) [Entitic mass] 28.9 pg 27.0-32.0 [facility] MCHC (RBC) [Mass/Vol] 32.2 g/dL 32-36 [facility] Nucleated RBC/100 WBC (Bld) [Ratio] 0 % 0-5 [facility] Platelets (Bld) [#/Vol] 269 10*3/uL 150-450 [facility] No Panel InformationOrdered By: Romeo Shankar on 06-04-2023 Estimated GFR (MDRD) Amer 64 mL/min >60 [facility] Comment on above: GFR Calc Estimated GFR (MDRD) Non-Af Amer 53 mL/min >60 [facility] Comment on above: Non- GFR Calc Hepatitis C Antibody Non-Reactive Nonreactive [facility] Comment on above: Non Reactive: < 0.8 Equivocal: >/= 0.8 to < 1.0 Reactive: >/= 1.0The CDC recommends that a reactive/equivocal HCV antibody result be followed up by the HCV Nucleic Acid Amplificationtest (070612) Vitamin D 25-Hydroxy 37.4 ng/mL [facility] Comment on above: Vitamin D 25(OH) Sta tus Range Deficiency <20 ng/mL (50nmol/L) Insufficiency 20 - 30 ng/mL (50 - 75 nmol/L) Sufficiency 30 - 100 ng/mL (75 - 250 nmol/L) Toxicity >100 ng/mL (>250 nmol/L) Platelet mean volume Shawn-Ec ker (Bld) [Entitic vol]Ordered By: Romeo Shankar on 06-04-2023 Platelet mean volume (Bld) [Entitic vol] 10.2 fL 6.2-12.0 [facility] RBC Auto (Bld) [#/Vol]Ordere d By: Romeo Shankar on 06-04-2023 RBC (Bld) [#/Vol] 4.39 10*6/uL 4.2-5.4 [facility] Serum or plasma calcium tim urement (mass/volume)Ordered By: Romeo Shankar on 06-04-2023 Calcium [Mass/Vol] 9.1 mg/dL 8.5-10.1 [facility] Serum or plasma creatinine m easurement (mass/volume)Ordered By: Romeo Shankar on 06-04-2023 Creatinine [Mass/Vol] 1.09 mg/dL 0.55-1.02 [facility] Comment on above: The validity of the calculated GFR & GFRAA in patients over 70 years has not been determined. Clinical correlation is essential. Serum or plasma thyroid stim ulating hormone (TSH) measurement (units/volume)Ordered By: Romeo Shankar on 06-04-2023 TSH Qn 2.05 uIU/mL 0.358-3.74 [facility] Serum or plasma urea nitroge n measurement (mass/volume)Ordered By: Romeo Shankar on 06-04-2023 Urea nitrogen [Mass/Vol] 17 mg/dL 7-18 [facility] Thin prep Papanicolaou smear with manual screeningOrdered By: Romeo Shankar on 06-04-2023 Thin prep Papanicolaou smear with manual screening 3.7 g/dL 3.2-5.0 [facility] Thin prep Papanicolaou smear with manual screening 29 U/L 15-37 [facility] Thin prep Papanicolaou smear with manual screening 5 5-15 [facility] CALCIUMon 06-01-2023 Calcium [Mass/Vol] 8.7 mg/dL Normal 8.6-10.5 [facility] Comment on above: Performed By: #### P TPTT #### [facility] (DEFAULT) [address] [place] [address] Calcium [Mass/Vol] 8.7 mg/dL 8.6 - 10. 5 mg/dL [facility] CBC AND ELECTRONIC DIFFon Abs Baso Auto < Normal 0.00-0.15 [facility] Comment on above: Performed By: #### P TPTT #### [facility] (DEFAULT) [address] [place] [address] Basophils/100 WBC (Bld) 0.1 % Normal [facility] Comment on above: Performed By: #### P TPTT #### [facility] (DEFAULT) [address] [place] [address] DIFF STATUS Electronic Differential Normal [facility] Comment on above: Performed By: #### P TPTT #### [facility] (DEFAULT) [address] [place] [address] Eosinophils (Bld) [#/Vol] 0.09 10*3/uL Normal 0.00-0.42 [facility] Comment on above: Performed By: #### P TPTT #### [facility] (DEFAULT) [address] [place] [address] Eosinophils/100 WBC (Bld) 1.2 % Normal [facility] Comment on above: Performed By: #### P TPTT #### [facility] (DEFAULT) [address] [place] [address] Hematocrit (Bld) [Volume fraction] 38.8 % Normal 34.9-44.3 [facility] Comment on above: Performed By: #### P TPTT #### [facility] (DEFAULT) [address] [place] [address] Hemoglobin (Bld) [Mass/Vol] 12.5 g/dL Normal 11.4-15.2 [facility] Comment on above: Performed By: #### P TPTT #### [facility] (DEFAULT) [address] [place] [address] Immature Grans % 0.3 % Normal [facility] Comment on above: Performed By: #### P TPTT #### [facility] (DEFAULT) [address] [address] Immature Grans Absolute < Normal <=0.08 [facility] Comment on above: Performed By: #### P TPTT #### [facility] (DEFAULT) [address] [address] Lymphocytes (Bld) [#/Vol] 1.59 10*3/uL Normal 1.16-3.51 [facility] Comment on above: Performed By: #### P TPTT #### [facility] (DEFAULT) [address] [address] Lymphocytes/100 WBC (Bld) 21.9 % Normal [facility] Comment on above: Performed By: #### P TPTT #### [facility] (DEFAULT) [address] [address] MCV (RBC) [Entitic vol] 90.0 fL Normal 79.6-97.7 [facility] Comment on above: Performed By: #### P TPTT #### [facility] (DEFAULT) [address] [address] Mean Cell Hgb 29.0 pg Normal 25.9-33.9 [facility] Comment on above: Performed By: #### P TPTT #### [facility] (DEFAULT) [address] [address] Mean Cell Hgb Conc 32.2 g/dL Normal 31.4-35.9 [facility] Comment on above: Performed By: #### P TPTT #### [facility] (DEFAULT) [address] [address] Monocytes (Bld) [#/Vol] 0.71 10*3/uL Normal 0.22-0.87 [facility] Comment on above: Performed By: #### P TPTT #### [facility] (DEFAULT) [address] [place] [address] Monocytes/100 WBC (Bld) 9.8 % Normal [facility] Comment on above: Performed By: #### P TPTT #### [facility] (DEFAULT) [address] [place] [address] Nucleated RBC 0.0 /100 WBC Normal <=0.2 [facility] Comment on above: Performed By: #### P TPTT #### [facility] (DEFAULT) [address] [place] [address] Platelet mean volume (Bld) [Entitic vol] 9.8 fL Normal 8.5-12.2 [facility] Comment on above: Performed By: #### P TPTT #### [facility] (DEFAULT) [address] [place] [address] Platelets (Bld) [#/Vol] 205 10*3/uL Normal 150-393 [facility] Comment on above: Performed By: #### P TPTT #### [facility] (DEFAULT) [address] [place] [address] RBC (Bld) [#/Vol] 4.31 10*6/uL Normal 3.91-5.04 [facility] Comment on above: Performed By: #### P TPTT #### [facility] (DEFAULT) [address] [place] [address] RBC Distribution 14.4 % Normal 10.8-14.9 [facility] Comment on above: Performed By: #### P TPTT #### [facility] (DEFAULT) [address] [place] [address] Segs + Bands Auto 66.7 % Normal [facility] Comment on above: Performed By: #### P TPTT #### [facility] (DEFAULT) [address] [place] [address] Segs + Bands,Absolute Auto 4.84 K/uL Normal 1.64-7.28 [facility] Comment on above: Performed By: #### P TPTT #### [facility] (DEFAULT) [address] [place] [address] WBC (Bld) [#/Vol] 7.26 10*3/uL Normal 3.99-11.19 [facility] Comment on above: Performed By: #### P TPTT #### [facility] (DEFAULT) [address] [place] [address] Basophils (Bld) [#/Vol] K/uL 0.00 - 0.15 K/uL [facility] Basophils/100 WBC (Bld) 0.1 % [facility] Differential cell count method Nom (Bld) Electronic Differential [facility] Eosinophils (Bld) [#/Vol] 0.09 10*3/uL 0.00 - 0.42 K/uL [facility] Eosinophils/100 WBC (Bld) 1.2 % [facility] Erythrocyte distribution width (RBC) [Ratio] 14.4 % 10.8 - 14.9 % [facility] Hematocrit (Bld) [Volume fraction] 38.8 % 34.9 - 44.3 % [facility] Hemoglobin (Bld) [Mass/Vol] 12.5 g/dL 11.4 - 15.2 g/dL [facility] Immature granulocytes (Bld) [#/Vol] K/uL NINF - 0.08 K/uL [facility] Immature granulocytes/100 WBC (Bld) 0.3 % [facility] Lymphocytes (Bld) [#/Vol] 1.59 10*3/uL 1.16 - 3.51 K/uL [facility] Lymphocytes/100 WBC (Bld) 21.9 % [facility] MCH (RBC) [Entitic mass] 29.0 pg 25.9 - 33.9 pg [facility] MCHC (RBC) [Mass/Vol] 32.2 g/dL 31.4 - 35.9 g/dL [facility] MCV (RBC) [Entitic vol] 90.0 fL 79.6 - 97.7 fL [facility] Monocytes (Bld) [#/Vol] 0.71 10*3/uL 0.22 - 0.87 K/uL [facility] Monocytes/100 WBC (Bld) 9.8 % [facility] Neutrophils (Bld) [#/Vol] 4.84 10*3/uL 1.64 - 7.28 K/uL [facility] Nucleated RBC/100 WBC (Bld) [Ratio] 0.0 % NINF [facility] Platelet mean volume (Bld) [Entitic vol] 9.8 fL 8.5 - 12.2 fL [facility] Platelets (Bld) [#/Vol] 205 10*3/uL 150 - 393 K /uL [facility] RBC (Bld) [#/Vol] 4.31 10*6/uL [facility] Segmented neutrophils/100 WBC (Bld) 66.7 % [facility] WBC (Bld) [#/Vol] 7.26 10*3/uL 3.99 - 11. 19 K/uL [facility] CHEM 7 (LYTES,BUN,CREA,GLUC) on 06-01-2023 Anion gap [Moles/Vol] 14 mmol/L Normal 7-17 [facility] Comment on above: Performed By: #### T YPEC #### [facility] (DEFAULT) [address] [place] [address] Chloride [Moles/Vol] 105 mmol/L Normal 98-108 [facility] Comment on above: Performed By: #### T YPEC #### [facility] (DEFAULT) [address] [place] [address] CO2 [Moles/Vol] 26 mmol/L Normal 21-31 [facility] Comment on above: Performed By: #### T YPEC #### [facility] (DEFAULT) [address] [place] [address] Creatinine [Mass/Vol] 0.93 mg/dL Normal 0.50-1.20 [facility] Comment on above: Performed By: #### T YPEC #### [facility] (DEFAULT) [address] [place] [address] GFR/1.73 sq M.predicted among non-blacks MDRD (S/P/Bld) [Vol rate/Area] 68 mL/min/{1.73_m2} Normal >=60 [facility] Comment on above: Result Comment: Repo rted eGFR is based on the CKD-EPI 2020 equation using creatinine, age, and sex. Performed By: #### T YPEC #### [facility] (DEFAULT) [address] [address] Glucose [Mass/Vol] 102 mg/dL High 70-99 [facility] Comment on above: Performed By: #### T YPEC #### [facility] (DEFAULT) [address] [address] Osmolality [Osmolality] 294 mosm/kg Normal 278-305 [facility] Comment on above: Performed By: #### T YPEC #### [facility] (DEFAULT) [address] [address] Potassium [Moles/Vol] 3.7 mmol/L Normal 3.5-5.0 [facility] Comment on above: Performed By: #### T YPEC #### [facility] (DEFAULT) [address] [address] Sodium [Moles/Vol] 141 mmol/L Normal 135-145 [facility] Comment on above: Performed By: #### T YPEC #### [facility] (DEFAULT) [address] [address] Urea nitrogen [Mass/Vol] 13 mg/dL Normal 7-25 [facility] Comment on above: Performed By: #### T YPEC #### [facility] (DEFAULT) [address] [address] Urea nitrogen/Creatinine [Mass ratio] 14 mg/mg Normal [facility] Comment on above: Performed By: #### T YPEC #### [facility] (DEFAULT) [address] [place] [address] CHEM 7 (LYTES,BUN,CREA,GLUC) Ordered By: Katerina Cramer on 06-01-2023 Anion gap [Moles/Vol] 14 mmol/L 7 - 17 mmol/L [facility] Chloride [Moles/Vol] 105 mmol/L 98 - 10 8 mmol/L [facility] CO2 [Moles/Vol] 26 mmol/L 21 - 31 mmol/L [facility] Creatinine [Mass/Vol] 0.93 mg/dL 0.50 - 1.20 mg/dL [facility] eGFR, CKD-EPI, Female 69 - PINF [facility] Comment on above: Reported eGFR is bas ed on the CKD-EPI 2020 equation using creatinine, age, and sex. Glucose [Mass/Vol] 102 mg/dL High 70 - 99 mg/dL [facility] Interpretation and review of laboratory results Abnormal [facility] Osmolality Calc [Osmolality] 294 [facility] Potassium [Moles/Vol] 3.7 mmol/L 3.5 - 5.0 mmol/L [facility] Sodium [Moles/Vol] 141 mmol/L 135 - 145 mmol/L [facility] Urea nitrogen [Mass/Vol] 13 mg/dL 7 - 25 mg/dL [facility] Urea nitrogen/Creatinine [Mass ratio] 14 mg/mg [facility] Cardiac echo study Procedure Ordered By: Joan Love on 06-01-2023 Ao peak sharyn 1.32 m/s [facility] Work Phone: Ao SOV index 1.35 cm/m2 [facility] Work Phone: Ao STJ index 1.65 cm/m2 [facility] Work Phone: AV LVOT peak gradient 5 mmHg [facility] Work Phone: AV peak gradient 7 mmHG [facility]: [facility] Velocity [facility].83 [facility] Work [facility]: PAULA (continuity Vmax) 3.08 cm2 [facility]: PAULA index (continuity Vmax) 1.49 m[facility]s [facility] Work Phone: Avg e' pk sharyn 0.09 m/s [facility] Work Phone: Avg E/e' ratio 7.56 [facility] Work Phone: Body surface area Derived from formula 2.07 m2 [facility] Work Phone: BP EF 59 % [facility] Work Phone: DI (Vmax) 0.83 [facility] Work Phone: E wave decelartion time 145.80 msec [facility] Work Phone: e' lateral pk sharyn 0.0859 m/s [facility] Work Phone: e' lateral pk sharyn 0.09 m/s [facility] Work Phone: e' septal pk sharyn 0.1004 m/s [facility] Work Phone: e' septal pk sharyn 0.10 m/s [facility] Work Phone: E/A ratio 1.56 [facility] Work Phone: E/e' lateral ratio 8.15 [facility] Work Phone: E/e' septal ratio 6.97 [facility] Work Phone: EF SP 2CH 59 [facility] Work Phone: EF SP 4CH 59 [facility] Work Phone: FS 35 % 28 - 44 % [facility] Work Phone: IVS 0.87 cm [facility] Work Phone: LA ESV SP 2CH (MOD) 63 mL [facility] Work Phone: LA ESV SP 4CH (MOD) 66 [facility]: LA size 4.06 cm [facility] Work Phone: LEFT ATRIAL DIAMETER INDEX 1.96 cm/m2 [facility] Work Phone: LV EDV BP 112 mL [facility] Work Phone: LV EDV SP 2CH 104 [facility] Work Phone: LV EDV SP 4CH 114 [facility] Work Phone: LV ESV BP 46 mL [facility] Work Phone: LV ESV SP 2CH 43 mL [facility] Work Phone: LV ESV SP 4CH 47 mL [facility] Work Phone: LV mass 156.45 g [facility] Work Phone: LV Mass Index 75.6 g/m2 [facility] Work Phone: LV RWT 0.40 [facility] Work Phone: LV stroke volume BP (ml) 66 mL [facility] Work Phone: LV stroke volume index BP 31.88 mL/m2 [facility] Work Phone: LVIDD 4.86 cm [facility] Work Phone: LVIDS 3.15 cm [facility] Work Phone: LVOT area 3.70 cm2 [facility] Work Phone: LVOT diameter 2.17 cm [facility] Work Phone: LVOT peak sharyn 1.10 m/s [facility] Work Phone: LVOT peak VTI 23.94 cm [facility] Work Phone: LVOT stroke volume 88 cm3 [facility] Work Phone: LVOT stroke volume index 42.75 ml/m2 [facility] Work Phone: MV pk A sharyn 0.45 m/s [facility] Work Phone: MV pk E sharyn 0.70 m/s [facility] Work Phone: [facility] ECHO LV BIPLANE SYSTOLIC VOLUME INDEX 22.22 mL/m2 [facility] Work Phone: [facility] ECHO LV BP DIASTOLIC VOLUME INDEX 54.11 mL/m2 [facility] Work Phone: PV peak gradient 3 mmHg [facility] Work Phone: PV PK SHARYN 0.90 m/s [facility] Work Phone: PW 0.98 cm [facility] Work Phone: RA vol index 4CH (MOD) 36.23 mL/m2 [facility] Work Phone: Right atrium volume 4 chamber method of disks 75 mL [facility] Work Phone: RV Area diastolic 28.60 cm2 [facility] Work Phone: RV Area systolic 17.00 cm2 [facility] Work Phone: RV basal diam 4.70 cm [facility] Work Phone: RV Fractional area change 40.6 % [facility] Work Phone: RV long diam 9.20 cm [facility] Work Phone: RV mid diam 3.60 cm [facility] Work Phone: RV S' 11.00 cm/s [facility] Work Phone: [facility]OT peak [facility]: RVOT peak sharyn 0.63 [facility] Phone: RVOT peak VTI 13.20 [facility]: Sinus 2.79 [facility] Work Phone: STJ 3.42 cm [facility] Work Phone: Stroke Volume 88 cm/mL [facility] Work Phone: [facility] TAPSE 2.88 [facility] Work Phone: TR pk grad 17 mmHg [facility] Work Phone: TR pk sharyn 2.09 m/s [facility] Work Phone: [facility] Work Phone: Cardiac echo study Procedure [...] Mild regurgitation. No stenosis. No evidence of ioohh-dn-kctw shunt with agitated saline contrast (NEGATIVE bubble [...] The left ventricular wall motion is normal. [facility] Radiology Study observation (narrative) [facility] ECHOCARDIOGRAMon 06-01-2023 Echocardiography ? Left Ventricle: Chamber [...] regurgitation. No stenosis. ? No evidence of ctyzn-ws-wpov shunt with agitated saline contrast (NEGATIVE bubble study). Table formatting from the original result was not included. Images from the original result were not included. Facility [facility] Patient Information Patient Name Kaia De Paz Legal Sex Female Indication for Exam Priority: [...] regurgitation. No stenosis. ? No evidence of tyrki-zj-vegp shunt with agitated saline contrast (NEGATIVE bubble [...] Role Read Date Joan Love MD Echo Harris 06/01/2023 Wall Scoring Score Index: 1.00 The [...] sharyn 0.7 (more content not included)... Normal [facility] HEPATIC FUNCTION PANELon Albumin [Mass/Vol] 4.1 g/dL Normal 3.5-5.0 [facility] Comment on above: Performed By: #### P TPTT #### [facility] (DEFAULT) [address] [address] ALP [Catalytic activity/Vol] 62 U/L Normal 32-126 [facility] Comment on above: Performed By: #### P TPTT #### [facility] (DEFAULT) [address] [place] [address] ALT [Catalytic activity/Vol] 16 U/L Normal 9-48 [facility] Comment on above: Performed By: #### P TPTT #### [facility] (DEFAULT) [address] [place] [address] AST [Catalytic activity/Vol] 19 U/L Normal 10-39 [facility] Comment on above: Performed By: #### P TPTT #### [facility] (DEFAULT) [address] [place] [address]00 Bilirubin [Mass/Vol] 0.5 mg/dL Normal <1.5 [facility] Comment on above: Performed By: #### P TPTT #### [facility] (DEFAULT) [address] [address] Bilirubin.indirect [Mass/Vol] 0.1 mg/dL Normal <0.3 [facility] Comment on above: Performed By: #### P TPTT #### [facility] (DEFAULT) [address] [place] [address] Protein [Mass/Vol] 7.2 g/dL Normal 6.4-8.3 [facility] Comment on above: Performed By: #### P TPTT #### [facility] (DEFAULT) [address] [place] [address] Albumin [Mass/Vol] 4.1 g/dL 3.5 - 5.0 g/dL [facility] ALP [Catalytic activity/Vol] 62 U/L 32 - 126 U/L [facility] ALT [Catalytic activity/Vol] 16 U/L 9 - 48 U/L [facility] AST [Catalytic activity/Vol] 19 U/L 10 - 39 U/L [facility] Bilirubin [Mass/Vol] 0.5 mg/dL NINF - 1.5 mg/dL [facility] Bilirubin.direct [Mass/Vol] 0.1 mg/dL NINF - 0.3 mg/dL [facility] Protein [Mass/Vol] 7.2 g/dL 6.4 - 8.3 g/dL [facility] MAGNESIUMon 06-01-2023 Magnesium [Mass/Vol] 2.2 mg/dL Normal 1.6-2.6 [facility] Comment on above: Performed By: #### P TPTT #### [facility] (DEFAULT) [address] [place] [address] Magnesium [Mass/Vol] 2.2 mg/dL 1.6 - 2 .6 mg/dL [facility] No Panel Informationon 06-01 Interpretation and review of laboratory results Normal [facility] PHOSPHATE, INORGANICon 06-01 Phosphorous 4.0 mg/dL Normal 2.2-4.6 [facility] Comment on above: Performed By: #### P TPTT #### [facility] (DEFAULT) [address] [place] [address] Phosphate [Mass/Vol] 4.0 mg/dL 2.2 - 4 .6 mg/dL [facility] PLATELET COUNTon 06-01-2023 Interpretation and review of laboratory results Normal [facility] Platelet mean volume (Bld) [Entitic vol] 9.8 fL 8.5 - 12.2 fL [facility] Platelets (Bld) [#/Vol] 205 10*3/uL 150 - 393 K /uL [facility] PT,INR,PTTon 06-01-2023 aPTT Coag (Bld) [Time] 25.8 s Normal 24.0-34.3 [facility] Comment on above: Performed By: #### P TPTT #### [facility] (DEFAULT) [address] [place] [address] INR Coag (PPP) [Relative time] 1.0 {INR} Normal 0.9-1.1 [facility] Comment on above: Performed By: #### P TPTT #### [facility] (DEFAULT) [address] [place] [address] PT Coag (PPP) [Time] 12.7 s Normal 11.9-14.2 [facility] Comment on above: Performed By: #### P TPTT #### [facility] (DEFAULT) [address] [place] [address] PT,INR,PTTOrdered By: Henry Nguyen on 06-01-2023 aPTT Coag (PPP) [Time] 25.8 s [facility] INR Coag (Bld) [Relative time] 1.0 {INR} 0.9 - 1.1 [facility] Interpretation and review of laboratory results Normal [facility] PT Coag (PPP) [Time] 12.7 s [facility] T4 FREEon 06-01-2023 Free T4 [Mass/Vol] 1.04 ng/dL 0.89 - 1. 76 ng/dL [facility] Interpretation and review of laboratory results Normal [facility] Free T4 [Mass/Vol] 1.04 ng/dL Normal 0.89-1.76 [facility] Comment on above: Performed By: #### T YPEC #### [facility] (DEFAULT) [address] [place] [address] TSH W/FT4 REFLEXon TSH 5.251 uIU/mL High 0.550-4.780 [facility] Comment on above: Performed By: #### T SHQR #### [facility] (DEFAULT) [address] [place] [address] Interpretation and review of laboratory results Abnormal [facility] TSH Qn 5.251 m[IU]/L High [facility] ABORH TYPE RECONFIRMATIONon 05-31-2023 ABO/RH(D) TYPE Positive Normal [facility] Comment on above: Performed By: #### T YPEC #### [facility] (DEFAULT) [address] [place] [address] ABO/RH(D) TYPE Positive [facility] CALCIUMon 05-31-2023 Calcium [Mass/Vol] 9.0 mg/dL Normal 8.6-10.5 [facility] Comment on above: Performed By: #### P TPTT #### [facility] (DEFAULT) [address] [place] [address] Calcium [Mass/Vol] 9.0 mg/dL 8.6 - 10. 5 mg/dL [facility] CBC AND ELECTRONIC DIFFon Abs Baso Auto < Normal 0.00-0.15 [facility] Comment on above: Performed By: #### P TPTT #### [facility] (DEFAULT) [address] [place] [address] Basophils/100 WBC (Bld) 0.4 % Normal [facility] Comment on above: Performed By: #### P TPTT #### [facility] (DEFAULT) [address] [place] [address] DIFF STATUS Electronic Differential Normal [facility] Comment on above: Performed By: #### P TPTT #### [facility] (DEFAULT) [address] [address] Eosinophils (Bld) [#/Vol] 0.08 10*3/uL Normal 0.00-0.42 [facility] Comment on above: Performed By: #### P TPTT #### [facility] (DEFAULT) [address] [address] Eosinophils/100 WBC (Bld) 1.1 % Normal [facility] Comment on above: Performed By: #### P TPTT #### [facility] (DEFAULT) [address] [address] Hematocrit (Bld) [Volume fraction] 37.6 % Normal 34.9-44.3 [facility] Comment on above: Performed By: #### P TPTT #### [facility] (DEFAULT) [address] [address] Hemoglobin (Bld) [Mass/Vol] 12.5 g/dL Normal 11.4-15.2 [facility] Comment on above: Performed By: #### P TPTT #### [facility] (DEFAULT) [address] [address] Immature Grans % 0.4 % Normal [facility] Comment on above: Performed By: #### P TPTT #### [facility] (DEFAULT) [address] [place] [address] Immature Grans Absolute < Normal <=0.08 [facility] Comment on above: Performed By: #### P TPTT #### [facility] (DEFAULT) [address] [address] Lymphocytes (Bld) [#/Vol] 1.40 10*3/uL Normal 1.16-3.51 [facility] Comment on above: Performed By: #### P TPTT #### [facility] (DEFAULT) [address] [place] [address] Lymphocytes/100 WBC (Bld) 18.5 % Normal [facility] Comment on above: Performed By: #### P TPTT #### [facility] (DEFAULT) [address] [place] [address] MCV (RBC) [Entitic vol] 87.9 fL Normal 79.6-97.7 [facility] Comment on above: Performed By: #### P TPTT #### [facility] (DEFAULT) [address] [place] [address] 100[address] Mean Cell Hgb 29.2 pg Normal 25.9-33.9 [facility] Comment on above: Performed By: #### P TPTT #### [facility] (DEFAULT) [address] [place] [address] Mean Cell Hgb Conc 33.2 g/dL Normal 31.4-35.9 [facility] Comment on above: Performed By: #### P TPTT #### [facility] (DEFAULT) [address] [place] [address] Monocytes (Bld) [#/Vol] 0.69 10*3/uL Normal 0.22-0.87 [facility] Comment on above: Performed By: #### P TPTT #### [facility] (DEFAULT) [address] [place] [address] Monocytes/100 WBC (Bld) 9.1 % Normal [facility] Comment on above: Performed By: #### P TPTT #### [facility] (DEFAULT) [address] [place] [address] Nucleated RBC 0.0 /100 WBC Normal <=0.2 [facility] Comment on above: Performed By: #### P TPTT #### [facility] (DEFAULT) [address] [place] [address] Platelet mean volume (Bld) [Entitic vol] 10.1 fL Normal 8.5-12.2 [facility] Comment on above: Performed By: #### P TPTT #### [facility] (DEFAULT) [address] [place] [address] Platelets (Bld) [#/Vol] 230 10*3/uL Normal 150-393 [facility] Comment on above: Performed By: #### P TPTT #### [facility] (DEFAULT) [address] [place] [address] RBC (Bld) [#/Vol] 4.28 10*6/uL Normal 3.91-5.04 [facility] Comment on above: Performed By: #### P TPTT #### [facility] (DEFAULT) [address] [place] [address]980 RBC Distribution 14.3 % Normal 10.8-14.9 [facility] Comment on above: Performed By: #### P TPTT #### [facility] (DEFAULT) [address] [place] [address] Segs + Bands Auto 70.5 % Normal [facility] Comment on above: Performed By: #### P TPTT #### [facility] (DEFAULT) [address] [place] [address] Segs + Bands,Absolute Auto 5.33 K/uL Normal 1.64-7.28 [facility] Comment on above: Performed By: #### P TPTT #### [facility] (DEFAULT) [address] [place] [address] WBC (Bld) [#/Vol] 7.56 10*3/uL Normal 3.99-11.19 [facility] Comment on above: Performed By: #### P TPTT #### [facility] (DEFAULT) [address] [place] [address] Basophils (Bld) [#/Vol] K/uL 0.00 - 0.15 K/uL [facility] Basophils/100 WBC (Bld) 0.4 % [facility] Differential cell count method Nom (Bld) Electronic Differential [facility] Eosinophils (Bld) [#/Vol] 0.08 10*3/uL 0.00 - 0.42 K/uL [facility] Eosinophils/100 WBC (Bld) 1.1 % [facility] Erythrocyte distribution width (RBC) [Ratio] 14.3 % 10.8 - 14.9 % [facility] Hematocrit (Bld) [Volume fraction] 37.6 % 34.9 - 44.3 % [facility] Hemoglobin (Bld) [Mass/Vol] 12.5 g/dL 11.4 - 15.2 g/dL [facility] Immature granulocytes (Bld) [#/Vol] K/uL NINF - 0.08 K/uL [facility] Immature granulocytes/100 WBC (Bld) 0.4 % [facility] Lymphocytes (Bld) [#/Vol] 1.40 10*3/uL 1.16 - 3.51 K/uL [facility] Lymphocytes/100 WBC (Bld) 18.5 % [facility] MCH (RBC) [Entitic mass] 29.2 pg 25.9 - 33.9 pg [facility] MCHC (RBC) [Mass/Vol] 33.2 g/dL 31.4 - 35.9 g/dL [facility] MCV (RBC) [Entitic vol] 87.9 fL 79.6 - 97.7 fL [facility] Monocytes (Bld) [#/Vol] 0.69 10*3/uL 0.22 - 0.87 K/uL [facility] Monocytes/100 WBC (Bld) 9.1 % [facility] Neutrophils (Bld) [#/Vol] 5.33 10*3/uL 1.64 - 7.28 K/uL [facility] Nucleated RBC/100 WBC (Bld) [Ratio] 0.0 % [facility] Platelet mean volume (Bld) [Entitic vol] 10.1 fL 8.5 - 12.2 fL [facility] Platelets (Bld) [#/Vol] 230 10*3/uL 150 - 393 K /uL [facility] RBC (Bld) [#/Vol] 4.28 10*6/uL [facility] Segmented neutrophils/100 WBC (Bld) 70.5 % [facility] WBC (Bld) [#/Vol] 7.56 10*3/uL 3.99 - 11. 19 K/uL [facility] CHEM 7 (LYTES,BUN,CREA,GLUC) on 05-31-2023 Anion gap [Moles/Vol] 14 mmol/L Normal 7-17 [facility] Comment on above: Performed By: #### P TPTT #### [facility] (DEFAULT) [address] [address] Chloride [Moles/Vol] 103 mmol/L Normal 98-108 [facility] Comment on above: Performed By: #### P TPTT #### [facility] (DEFAULT) [address] [place] [address] CO2 [Moles/Vol] 22 mmol/L Normal 21-31 [facility] Comment on above: Performed By: #### P TPTT #### [facility] (DEFAULT) [address] [place] [address] Creatinine [Mass/Vol] 0.80 mg/dL Normal 0.50-1.20 [facility] Comment on above: Performed By: #### P TPTT #### [facility] (DEFAULT) [address] [address] GFR/1.73 sq M.predicted among non-blacks MDRD (S/P/Bld) [Vol rate/Area] 81 mL/min/{1.73_m2} Normal >=60 [facility] Comment on above: Result Comment: Repo rted eGFR is based on the CKD-EPI 2020 equation using creatinine, age, and sex. Performed By: #### P TPTT #### [facility] (DEFAULT) [address] [address] Glucose [Mass/Vol] 134 mg/dL High 70-99 [facility] Comment on above: Performed By: #### P TPTT #### [facility] (DEFAULT) [address] [place] [address] Osmolality [Osmolality] 286 mosm/kg Normal 278-305 [facility] Comment on above: Performed By: #### P TPTT #### [facility] (DEFAULT) [address] [place] [address] Potassium [Moles/Vol] 3.7 mmol/L Normal 3.5-5.0 [facility] Comment on above: Performed By: #### P TPTT #### [facility] (DEFAULT) [address] [place] [address] Sodium [Moles/Vol] 135 mmol/L Normal 135-145 [facility] Comment on above: Performed By: #### P TPTT #### [facility] (DEFAULT) [address] [place] [address] Urea nitrogen [Mass/Vol] 14 mg/dL Normal 7-25 [facility] Comment on above: Performed By: #### P TPTT #### [facility] (DEFAULT) [address] [place] [address] Urea nitrogen/Creatinine [Mass ratio] 18 mg/mg Normal [facility] Comment on above: Performed By: #### P TPTT #### [facility] (DEFAULT) [address] [place] [address] Anion gap [Moles/Vol] 14 mmol/L 7 - 17 mmol/L [facility] Chloride [Moles/Vol] 103 mmol/L 98 - 10 8 mmol/L [facility] CO2 [Moles/Vol] 22 mmol/L 21 - 31 mmol/L [facility] Creatinine [Mass/Vol] 0.80 mg/dL 0.50 - 1.20 mg/dL [facility] eGFR, CKD-EPI, Female 81 - PINF [facility] Comment on above: Reported eGFR is bas ed on the CKD-EPI 202 equation using creatinine, age, and sex. Glucose [Mass/Vol] 134 mg/dL High 70 - 99 mg/dL [facility] Interpretation and review of laboratory results Abnormal [facility] Osmolality Calc [Osmolality] 286 [facility] Potassium [Moles/Vol] 3.7 mmol/L 3.5 - 5.0 mmol/L [facility] Sodium [Moles/Vol] 135 mmol/L 135 - 145 mmol/L [facility] Urea nitrogen [Mass/Vol] 14 mg/dL 7 - 25 mg/dL [facility] Urea nitrogen/Creatinine [Mass ratio] 18 mg/mg [facility] CT ABDOMEN/PELVIS WITH CONTR [place] 05-31-2023 [...] 8. Ancillary findings as described above Normal [facility] CT ANGIO BRAIN/NECKon 2023 CT [...] normal in caliber. 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 VERTEBRAL ARTERIES: Patent and normal [...] have reviewed and approved this report. Normal [facility] CT Abdomen and Pelvis W radha mccray Christy 05-31-2023 IMPRESSION: 1. No definite evidence [...] no suspicious focal osseous lesions RADIOLOGY Hal Isaac, DOROTHY - 05/31/2023 EXAM: CT ABDOMEN/PELVIS WITH CONTRAST, [...] symptoms 8. Ancillary findings as described above [facility] CT Abdomen and Pelvis W cont rast IVOrdered By: Hal Isaac on 05-31-2023 [facility] Work Phone: CT CHEST WITH CONTRASTon CT CHEST WITH CONTRAST EXAM: CT CHEST WI TH CONTRAST, 05/31/2023 04:36 AM COMPARISON: No Available Comparisons. 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 Normal [facility] CT Chest W contrast Christy IMPRESSION: 1. No convincing CT evidence of metastatic disease within the chest. OLOGY EXAM: CT CHEST WITH CONTRAST, 05/31/2023 04:36 AM COMPARISON: No Available Comparisons. 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 RADIOLOGY Alesha Gutiérrez Momo, MBBC - 05/31/2023 EXAM: CT CHEST WITH CONTRAST, 05/31/2023 04:36 AM COMPARISON: No Available Comparisons. 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 [facility] CT Chest W contrast IVOrdere d By: Alesha Gutiérrez on 05-31-2023 [facility] Work Phone: CT HEAD WITHOUT CONTRASTon [...] convexity new since the prior exam. Normal [facility] CT Head WO contraston 2023 [...] frontal convexity new since the prior exam. [facility] Radiology Study observation (narrative) [facility] CT Head WO contrastOrdered B y: Kiersten Watts on 05-31-2023 [facility] Work Phone: CT STROKE HEAD-STROKE ALERT [...] have reviewed and approved this report. Normal [facility] EXTRA MICROon 05-31-2023 [facility] HEMOGLOBIN A1Con 05-31-2023 Average glucose Estimated from glycated hemoglobin (Bld) [Mass/Vol] 126 mg/dL [facility] HbA1c (Bld) [Mass fraction] 6.0 % High 4.7 - 5.6 % [facility] Interpretation and review of laboratory results Abnormal [facility] LIPID PANEL WITH REFLEX TO M YAZURED LDLon 05-31-2023 Cholesterol [Mass/Vol] 140 mg/dL NINF - 200 mg/dL [facility] Comment on above: [<200 mg/dL: Desirab le] [200-239 mg/dL: Borderline High] [>239 mg/dL: High] Cholesterol in HDL [Mass/Vol] 54 mg/dL 40 - PINF mg/dL [facility] Comment on above: [<40 mg/dL: Low (Hig h Risk)] [>59 mg/dL: High (Low Risk)] Cholesterol in LDL [Mass/Vol] 74 mg/dL 0 - 99 mg/dL [facility] Comment on above: [<100 mg/dL: Optimal ] [100-129 mg/dL: Near Optimal] [130-159 mg/dL: Borderline High] [160-189 mg/dL: High] [>189 mg/dL: Very High] Cholesterol non HDL [Mass/Vol] 86 mg/dL NINF - 130 mg/dL [facility] Cholesterol.total/Amirah sterol in HDL [Mass ratio] 2.6 {ratio} NINF - 4.5 [facility] Interpretation and review of laboratory results Normal [facility] Triglyceride [Mass/Vol] 61 mg/dL NINF - 150 mg/dL [facility] Comment on above: [<150 mg/dL: Desirab le] [150-199 mg/dL: Borderline] [200-499 mg/dL: High] [>500 mg/dL: Very High] [facility] MAGNESIUMon 05-31-2023 Magnesium [Mass/Vol] 2.1 mg/dL Normal 1.6-2.6 [facility] Comment on above: Performed By: #### P TPTT #### [facility] (DEFAULT) [address] [place] [address] Magnesium [Mass/Vol] 2.1 mg/dL 1.6 - 2 .6 mg/dL [facility] MR Brain WO and W contrast [...] thickening and enhancement, which may be reactive. [facility] Radiology Study observation (narrative) [facility] MR Brain WO and W contrast I VOrdered By: Margarito Russ on 05-31-2023 [facility] Work Phone: [facility]RAIN WITH AND [facility] BRAIN WITH AND [...] and enhancement, which may be reactive. Normal [facility] No Panel Informationon 05-31 Interpretation and review of laboratory results Normal [facility] Radiology Study observation (narrative) [facility] PHOSPHATE, INORGANICon 05-31 Phosphorous 3.1 mg/dL Normal 2.2-4.6 [facility] Comment on above: Performed By: #### P TPTT #### [facility] (DEFAULT) [address] [place] [address] Phosphate [Mass/Vol] 3.1 mg/dL 2.2 - 4 .6 mg/dL [facility] PT,INR,PTTon 05-31-2023 aPTT Coag (Bld) [Time] 31.0 s Normal 24.0-34.3 [facility] Comment on above: Performed By: #### P TPTT #### [facility] (DEFAULT) [address] [place] [address] INR Coag (PPP) [Relative time] 1.0 {INR} Normal 0.9-1.1 [facility] Comment on above: Performed By: #### P TPTT #### [facility] (DEFAULT) [address] [place] [address] PT Coag (PPP) [Time] 13.5 s Normal 11.9-14.2 [facility] Comment on above: Performed By: #### P TPTT #### [facility] (DEFAULT) [address] [place] [address]120 aPTT Coag (PPP) [Time] 31.0 s [facility] INR Coag (Bld) [Relative time] 1.0 {INR} 0.9 - 1.1 [facility] Interpretation and review of laboratory results Normal [facility] PT Coag (PPP) [Time] 13.5 s [facility] TYPE AND SCREENon 05-31-2023 ABO/RH(D) TYPE Positive Normal [facility] Comment on above: Performed By: #### X M #### [facility] (DEFAULT) [address] [address] URINALYSIS REFLEX TO CULTURE PERFORMABLEon 05-31-2023 Appearance (U) Clear Normal Clear [facility] Comment on above: Order Comment: For i ndwelling catheters, specimen collection is acceptable on catheter day 1 and 2 only. ? Performed By: #### U [id number] #### [facility] (DEFAULT) [address] [place] [address] 365[address] Bacteria ABSENT Normal ABSENT [facility] Comment on above: Order Comment: For i ndwelling catheters, specimen collection is acceptable on catheter day 1 and 2 only. ? Performed By: #### U [id number] #### [facility] (DEFAULT) [address] [address] Blood Urine Trace Abnormal Negative [facility] Comment on above: Order Comment: For i ndwelling catheters, specimen collection is acceptable on catheter day 1 and 2 only. ? Performed By: #### U [id number] #### [facility] (DEFAULT) [address] [address] Color (U) Yellow Normal Yellow [facility] Comment on above: Order Comment: For i ndwelling catheters, specimen collection is acceptable on catheter day 1 and 2 only. ? Performed By: #### U [id number] #### [facility] (DEFAULT) [address] [place] [address] Glucose Ql (U) Negative Normal Negative [facility] Comment on above: Order Comment: For i ndwelling catheters, specimen collection is acceptable on catheter day 1 and 2 only. ? Performed By: #### U [id number] #### [facility] (DEFAULT) [address] [address] Ketones Ql (U) Trace Abnormal Negative [facility] Comment on above: Order Comment: For i ndwelling catheters, specimen collection is acceptable on catheter day 1 and 2 only. ? Performed By: #### U [id number] #### [facility] (DEFAULT) [address] [place] [address] Leukocyte esterase Test strip Ql (U) Small Abnormal Negative [facility] Comment on above: Order Comment: For i ndwelling catheters, specimen collection is acceptable on catheter day 1 and 2 only. ? Performed By: #### U [id number] #### [facility] (DEFAULT) [address] [place] [address] Nitrites Urine Negative Normal Negative [facility] Comment on above: Order Comment: For i ndwelling catheters, specimen collection is acceptable on catheter day 1 and 2 only. ? Performed By: #### U [id number] #### [facility] (DEFAULT) [address] [place] [address] pH (U) 7.0 [pH] Normal 5.0-7.0 [facility] Comment on above: Order Comment: For i ndwelling catheters, specimen collection is acceptable on catheter day 1 and 2 only. ? Performed By: #### U [id number] #### [facility] (DEFAULT[facility] [address] [place] [address] Protein Urine Negative Normal Negative [facility] Comment on above: Order Comment: For i ndwelling catheters, specimen collection is acceptable on catheter day 1 and 2 only. ? Performed By: #### U [id number] #### [facility] (DEFAULT) [address] [place] [address] RBC Urine 3-5 Abnormal 0-2 [facility] Comment on above: Order Comment: For i ndwelling catheters, specimen collection is acceptable on catheter day 1 and 2 only. ? Performed By: #### U [id number] #### [facility] (DEFAULT) [address] [place] [address] Specific [place] Urine > High 1.001-1.035 [facility] Comment on above: Order Comment: For i ndwelling catheters, specimen collection is acceptable on catheter day 1 and 2 only. ? Performed By: #### U [id number] #### [facility] (DEFAULT) [address] [address] Squamous/Epithelial Cells 6-10/hpf = 2+ Abnormal 0-2/hpf, 3-5/hpf = 1+ [facility] Comment on above: Order Comment: For i ndwelling catheters, specimen collection is acceptable on catheter day 1 and 2 only. ? Performed By: #### U [id number] #### [facility] (DEFAULT) [address] [address] Urobilinogen Urine 0.2 E.U./dL Normal 0.2 E.U/d L, 1.0 E.U/dL [facility] Comment on above: Order Comment: For i ndwelling catheters, specimen collection is acceptable on catheter day 1 and 2 only. ? Performed By: #### U [id number] #### [facility] (DEFAULT) [address] [address] WBC Urine 6 - 10 Abnormal 0 - 5 [facility] Comment on above: Order Comment: For i ndwelling catheters, specimen collection is acceptable on catheter day 1 and 2 only. ? Performed By: #### U [id number] #### [facility] (DEFAULT) [address] [address] Absolute lymphocyte countOrd ered By: Oliver Briggs on 05-30-2023 Lymphocytes Auto (Unsp spec) [#/Vol] 1.24 10*3/uL 0.83-4.51 [facility] Activated partial thrombopla stin time (aPTT) in platelet poor plasma by coagulation aOrdered By: Oliver Briggs on 05-30-2023 aPTT Coag (PPP) [Time] 31.3 s 24.1-36.2 [facility] Automated lymphocyte count a s percentage of total leukocytesOrdered By: Oliver Briggs on 05-30-2023 Lymphocytes/100 WBC Auto (Unsp spec) 22.0 % 19-41 [facility] Basophil percentageOrdered B y: Oliver Briggs on 05-30-2023 Basophils/100 WBC (Bld) 0.5 % 0-1 [facility] Bilirubin [Mass/Vol] 0.40 mg/dL 0.20-1.00 [facility] Comment on above: For patients on eltr ombopag therapy, use of Dimension Sabin TBIL is not recommended. Chloride [Moles/Vol] 108 mmol/L 98-107 [facility] Eosinophils/100 WBC (Bld) 1.2 % 0-5 [facility] Glucose [Mass/Vol] 102 mg/dL 74-106 [facility] Comment on above: Fasting Glucose resu lt from 100 to 125 mg/dL suggests IMPAIRED HOMEOSTASIS per A.D.A. criteria. Hemoglobin (Bld) [Mass/Vol] 13.4 g/dL 12.0-15.0 [facility] Monocytes/100 WBC (Bld) 8.9 % 0-10 [facility] Neutrophils (Bld) [#/Vol] 3.8 10*3/uL 2.0-7.7 [facility] Neutrophils/100 WBC (Bld) 67.0 % 47-70 [facility] Potassium [Moles/Vol] 3.6 mmol/L 3.5-5.1 [facility] Protein [Mass/Vol] 8.1 g/dL 6.4-8.2 [facility] Sodium [Moles/Vol] 138 mmol/L 136-145 [facility] WBC (Bld) [#/Vol] 5.6 10*3/uL 4.4-11.0 [facility] Basophil percentageOrdered B y: ED PROVIDER on 05-30-2023 Basophil percentage 0 SEEN /hpf 0-5 [facility] Bilirubin Test strip Ql (U)O rdered By: ED PROVIDER on 05-30-2023 Bilirubin Ql (U) Negative Negative [facility] CALCIUMon 05-30-2023 Calcium [Mass/Vol] 8.5 mg/dL Low 8.6-10.5 [facility] Comment on above: Performed By: #### T YPEC #### [facility] (DEFAULT) [address] [place] [address] Calcium [Mass/Vol] 8.5 mg/dL Low 8.6 - 10. 5 mg/dL [facility] Interpretation and review of laboratory results Abnormal [facility] CBC AND ELECTRONIC DIFFon Abs Baso Auto < Normal 0.00-0.15 [facility] Comment on above: Performed By: #### L [id number], A1CB #### [facility] (DEFAULT) [address] [place] [address] Basophils/100 WBC (Bld) 0.3 % Normal [facility] Comment on above: Performed By: #### L AB980, A1CB #### [facility] (DEFAULT) [address] [place] [address] DIFF STATUS Electronic Differential Normal [facility] Comment on above: Performed By: #### L AB980, A1CB #### [facility] (DEFAULT) [address] [place] [address] Eosinophils (Bld) [#/Vol] 0.07 10*3/uL Normal 0.00-0.42 [facility] Comment on above: Performed By: #### L AB980, A1CB #### [facility] (DEFAULT) [address] [place] [address] Eosinophils/100 WBC (Bld) 1.1 % Normal [facility] Comment on above: Performed By: #### L AB980, A1CB #### [facility] (DEFAULT) [address] [place] [address] Hematocrit (Bld) [Volume fraction] 38.6 % Normal 34.9-44.3 [facility] Comment on above: Performed By: #### L AB980, A1CB #### [facility] (DEFAULT) [address] [place] [address] Hemoglobin (Bld) [Mass/Vol] 12.6 g/dL Normal 11.4-15.2 [facility] Comment on above: Performed By: #### L AB980, A1CB #### [facility] (DEFAULT) [address] [place] [address] Immature Grans % 0.3 % Normal [facility] Comment on above: Performed By: #### L AB980, A1CB #### [facility] (DEFAULT) [address] [place] [address] Immature Grans Absolute < Normal <=0.08 [facility] Comment on above: Performed By: #### L AB980, A1CB #### [facility] (DEFAULT) [address] [place] [address] Lymphocytes (Bld) [#/Vol] 1.63 10*3/uL Normal 1.16-3.51 [facility] Comment on above: Performed By: #### L AB980, A1CB #### [facility] (DEFAULT) [address] [address] Lymphocytes/100 WBC (Bld) 24.9 % Normal [facility] Comment on above: Performed By: #### L AB980, A1CB #### [facility] (DEFAULT) [address] [address] MCV (RBC) [Entitic vol] 89.6 fL Normal 79.6-97.7 [facility] Comment on above: Performed By: #### L AB980, A1CB #### [facility] (DEFAULT) [address] [address] Mean Cell Hgb 29.2 pg Normal 25.9-33.9 [facility] Comment on above: Performed By: #### L AB980, A1CB #### [facility] (DEFAULT) [address] [address] Mean Cell Hgb Conc 32.6 g/dL Normal 31.4-35.9 [facility] Comment on above: Performed By: #### L AB980, A1CB #### [facility] (DEFAULT) [address] [address] Monocytes (Bld) [#/Vol] 0.65 10*3/uL Normal 0.22-0.87 [facility] Comment on above: Performed By: #### L AB980, A1CB #### [facility] (DEFAULT) [address] [place] [address] Monocytes/100 WBC (Bld) 9.9 % Normal [facility] Comment on above: Performed By: #### L AB980, A1CB #### [facility] (DEFAULT) [address] [place] [address] Nucleated RBC 0.0 /100 WBC Normal <=0.2 [facility] Comment on above: Performed By: #### L AB980, A1CB #### [facility] (DEFAULT) [address] [place] [address] Platelet mean volume (Bld) [Entitic vol] 10.2 fL Normal 8.5-12.2 [facility] Comment on above: Performed By: #### L AB980, A1CB #### [facility] (DEFAULT) [address] [place] [address] Platelets (Bld) [#/Vol] 231 10*3/uL Normal 150-393 [facility] Comment on above: Performed By: #### L AB980, A1CB #### [facility] (DEFAULT) [address] [place] [address] RBC (Bld) [#/Vol] 4.31 10*6/uL Normal 3.91-5.04 [facility] Comment on above: Performed By: #### L AB980, A1CB #### [facility] (DEFAULT) [address] [place] [address] RBC Distribution 14.1 % Normal 10.8-14.9 [facility] Comment on above: Performed By: #### L AB980, A1CB #### [facility] (DEFAULT) [address] [place] [address] Segs + Bands Auto 63.5 % Normal [facility] Comment on above: Performed By: #### L AB980, A1CB #### [facility] (DEFAULT) [address] [place] [address] Segs + Bands,Absolute Auto 4.15 K/uL Normal 1.64-7.28 [facility] Comment on above: Performed By: #### L AB980, A1CB #### [facility] (DEFAULT) [address] [place] [address] WBC (Bld) [#/Vol] 6.54 10*3/uL Normal 3.99-11.19 [facility] Comment on above: Performed By: #### L AB980, A1CB #### [facility] (DEFAULT) [address] [place] [address] Basophils (Bld) [#/Vol] K/uL 0.00 - 0.15 K/uL [facility] Basophils/100 WBC (Bld) 0.3 % [facility] Differential cell count method Nom (Bld) Electronic Differential [facility] Eosinophils (Bld) [#/Vol] 0.07 10*3/uL 0.00 - 0.42 K/uL [facility] Eosinophils/100 WBC (Bld) 1.1 % [facility] Erythrocyte distribution width (RBC) [Ratio] 14.1 % 10.8 - 14.9 % [facility] Hematocrit (Bld) [Volume fraction] 38.6 % 34.9 - 44.3 % [facility] Hemoglobin (Bld) [Mass/Vol] 12.6 g/dL 11.4 - 15.2 g/dL [facility] Immature granulocytes (Bld) [#/Vol] K/uL NINF - 0.08 K/uL [facility] Immature granulocytes/100 WBC (Bld) 0.3 % [facility] Lymphocytes (Bld) [#/Vol] 1.63 10*3/uL 1.16 - 3.51 K/uL [facility] Lymphocytes/100 WBC (Bld) 24.9 % [facility] MCH (RBC) [Entitic mass] 29.2 pg 25.9 - 33.9 pg [facility] MCHC (RBC) [Mass/Vol] 32.6 g/dL 31.4 - 35.9 g/dL [facility] MCV (RBC) [Entitic vol] 89.6 fL 79.6 - 97.7 fL [facility] Monocytes (Bld) [#/Vol] 0.65 10*3/uL 0.22 - 0.87 K/uL [facility] Monocytes/100 WBC (Bld) 9.9 % [facility] Neutrophils (Bld) [#/Vol] 4.15 10*3/uL 1.64 - 7.28 K/uL [facility] Nucleated RBC/100 WBC (Bld) [Ratio] 0.0 % NINF [facility] Platelet mean volume (Bld) [Entitic vol] 10.2 fL 8.5 - 12.2 fL [facility] Platelets (Bld) [#/Vol] 231 10*3/uL 150 - 393 K /uL [facility] RBC (Bld) [#/Vol] 4.31 10*6/uL [facility] Segmented neutrophils/100 WBC (Bld) 63.5 % [facility] WBC (Bld) [#/Vol] 6.54 10*3/uL 3.99 - 11. 19 K/uL [facility] CHM 7 - EDon 05-30-2023 Anion gap [Moles/Vol] 10 mmol/L Normal 7-17 [facility] Comment on above: Performed By: #### T YPEC #### [facility] (DEFAULT) [address] [address] Chloride [Moles/Vol] 105 mmol/L Normal 98-108 [facility] Comment on above: Performed By: #### T YPEC #### [facility] (DEFAULT) [address] [address] CO2 [Moles/Vol] 26 mmol/L Normal 21-31 [facility] Comment on above: Performed By: #### T YPEC #### [facility] (DEFAULT) [address] [address] Creatinine [Mass/Vol] 0.80 mg/dL Normal 0.50-1.20 [facility] Comment on above: Performed By: #### T YPEC #### [facility] (DEFAULT) [address] [address] GFR/1.73 sq M.predicted among non-blacks MDRD (S/P/Bld) [Vol rate/Area] 81 mL/min/{1.73_m2} Normal >=60 [facility] Comment on above: Result Comment: Repo rted eGFR is based on the CKD-EPI 2020 equation using creatinine, age, and sex. Performed By: #### T YPEC #### [facility] (DEFAULT) [address] [address] Glucose [Mass/Vol] 96 mg/dL Normal 70-99 [facility] Comment on above: Performed By: #### T YPEC #### [facility] (DEFAULT) [address] [address] Osmolality [Osmolality] 286 mosm/kg Normal 278-305 [facility] Comment on above: Performed By: #### T YPEC #### [facility] (DEFAULT) [address] [address] Potassium [Moles/Vol] 3.7 mmol/L Normal 3.5-5.0 [facility] Comment on above: Performed By: #### T YPEC #### [facility] (DEFAULT) [address] [address] Sodium [Moles/Vol] 137 mmol/L Normal 135-145 [facility] Comment on above: Performed By: #### T YPEC #### [facility] (DEFAULT) [address] [address] Urea nitrogen [Mass/Vol] 13 mg/dL Normal 7-25 [facility] Comment on above: Performed By: #### T YPEC #### [facility] (DEFAULT) [address] [place] [address] Urea nitrogen/Creatinine [Mass ratio] 16 mg/mg Normal [facility] Comment on above: Performed By: #### T YPEC #### [facility] (DEFAULT) [address] [place] [address] Anion gap [Moles/Vol] 10 mmol/L 7 - 17 [facility] Chloride [Moles/Vol] 105 mmol/L 98 - 10 8 mmol/L [facility] CO2 [Moles/Vol] 26 mmol/L 21 - 31 [facility] Creatinine [Mass/Vol] 0.80 mg/dL 0.50 - 1.20 mg/dL [facility] eGFR, CKD-EPI, Female 81 - PINF [facility] Comment on above: Reported eGFR is bas ed on the CKD-EPI 2020 equation using creatinine, age, and sex. Glucose [Mass/Vol] 96 mg/dL 70 - 99 mg/dL [facility] Osmolality Calc [Osmolality] 286 [facility] Potassium [Moles/Vol] 3.7 mmol/L 3.5 - 5.0 mmol/L [facility] Sodium [Moles/Vol] 137 mmol/L 135 - 145 mmol/L [facility] Urea nitrogen [Mass/Vol] 13 mg/dL 7 - 25 mg/dL [facility] Urea nitrogen/Creatinine [Mass ratio] 16 mg/mg [facility] CT ANGIO BRAIN/NECKon 2023 IMPRESSION: 1. [...] normal in caliber. 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 VERTEBRAL ARTERIES: Patent and normal [...] normal in caliber. 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 VERTEBRAL ARTERIES: Patent and normal [...] I have reviewed and approved this report. [facility] Radiology Study observation (narrative) [facility] CT Head limitedon 05-30-2023 IMPRESSION: 1. High-attenuating [...] I have reviewed and approved this report. [facility] Radiology Study observation (narrative) [facility] CT Head limitedOrdered By: Ammon Dorantes on 05-30-2023 [facility] Work Phone: Determination of erythrocyte mean corpuscular volume (MCV)Ordered By: Oliver Briggs on 05-30-2023 MCV (RBC) [Entitic vol] 89.7 fL 81-99 [facility] Erythrocyte distribution wid th ratioOrdered By: Oliver Briggs on 05-30-2023 Erythrocyte distribution width (RBC) [Ratio] 14.2 % 11.6-14.6 [facility] Erythrocyte distribution wid th standard deviationOrdered By: Oliver Briggs on 05-30-2023 Erythrocyte distribution width (RBC) [Entitic vol] 47.1 fL 35.1-43.9 [facility] GLUCOSE POCon 05-30-2023 Glucose [Mass/Vol] 105 mg/dL High 70 - 99 mg/dL [facility] Interpretation and review of laboratory results Abnormal [facility] POC Sample Type CAPBL [facility] Test performed at address of the patient encounter. [facility] HEMOGLOBIN A1Con 05-30-2023 Glucose [Mass/Vol] 126 mg/dL Normal [facility] Comment on above: Performed By: #### L AB980, A1CB #### [facility] (DEFAULT) [address] [place] [address] Hemoglobin A1C HPLC 6.0 % High 4.7-5.6 [facility] Comment on above: Performed By: #### L AB980, A1CB #### [facility] (DEFAULT) [address] [address] HEPATIC FUNCTION PANELon Albumin [Mass/Vol] 3.9 g/dL Normal 3.5-5.0 [facility] Comment on above: Performed By: #### T YPEC #### [facility] (DEFAULT) [address] [place] [address] ALP [Catalytic activity/Vol] 64 U/L Normal 32-126 [facility] Comment on above: Performed By: #### T YPEC #### [facility] (DEFAULT) [address] [address] ALT [Catalytic activity/Vol] 16 U/L Normal 9-48 [facility] Comment on above: Performed By: #### T YPEC #### [facility] (DEFAULT) [address] [address] AST [Catalytic activity/Vol] 18 U/L Normal 10-39 [facility] Comment on above: Performed By: #### T YPEC #### [facility] (DEFAULT) [address] [address] Bilirubin [Mass/Vol] 0.5 mg/dL Normal <1.5 [facility] Comment on above: Performed By: #### T YPEC #### [facility] (DEFAULT) [address] [address] Bilirubin.indirect [Mass/Vol] 0.1 mg/dL Normal <0.3 [facility] Comment on above: Performed By: #### T YPEC #### [facility] (DEFAULT) [address] [address] Protein [Mass/Vol] 6.4 g/dL Normal 6.4-8.3 [facility] Comment on above: Performed By: #### T YPEC #### [facility] (DEFAULT) [address] [place] [address] Albumin [Mass/Vol] 3.9 g/dL 3.5 - 5.0 g/dL [facility] ALP [Catalytic activity/Vol] 64 U/L 32 - 126 U/L [facility] ALT [Catalytic activity/Vol] 16 U/L 9 - 48 U/L [facility] AST [Catalytic activity/Vol] 18 U/L 10 - 39 U/L [facility] Bilirubin [Mass/Vol] 0.5 mg/dL NINF - 1.5 mg/dL [facility] Bilirubin.direct [Mass/Vol] 0.1 mg/dL NINF - 0.3 mg/dL [facility] Protein [Mass/Vol] 6.4 g/dL 6.4 - 8.3 g/dL [facility] HIGH SENSITIVITY TROPONIN I - SINGLE ORDERon 05-30-2023 hs-Troponin I <3 Normal <34 [facility] Comment on above: Order Comment: Acute Coronary Syndrome (ACS): Initial Evaluation and Management:[email or web address] Performed By: #### P TPTT #### [facility] (DEFAULT) [address] [address] Interpretation and review of laboratory results Normal [facility] Troponin I.cardiac High sensitivity method [Mass/Vol] ng/L NINF - 34 ng/L [facility] Hematocrit Auto (Bld) [Volum e fraction]Ordered By: Oliver Briggs on 05-30-2023 Hematocrit (Bld) [Volume fraction] 41.0 % 37-47 [facility] Immature granulocytes/100 WB C Auto (Bld)Ordered By: Oliver Briggs on 05-30-2023 Immature granulocytes/100 WBC (Bld) 0.400 % 0.0-0.9 [facility] Comment on above: IG% - Immature Granu locytes (promyelocytes, myelocytes and metamyelocytes) > 1% indicates that a LEFT SHIFT is Present. International normalized rat io (INR) calculationOrdered By: Oliver Briggs on 05-30-2023 INR Coag (PPP) [Relative time] 1.0 {INR} [facility] Ketones Test strip Ql (U)Ord ered By: ED PROVIDER on 05-30-2023 Ketones Ql (U) Negative Negative [facility] LIPID PANEL WITH REFLEX TO M EASURED LDLon 05-30-2023 Calculated LDL Cholesterol 74 mg/dL Normal 0-99 [facility] Comment on above: Result Comment: [<10 0 mg/dL: Optimal] [100-129 mg/dL: Near Optimal] [130-159 mg/dL: Borderline High] [160-189 mg/dL: High] [>189 mg/dL: Very High] Performed By: #### T YPEC #### [facility] (DEFAULT) [address] [place] [address] Cholesterol [Mass/Vol] 140 mg/dL Normal <200 [facility] Comment on above: Result Comment: [<20 0 mg/dL: Desirable] [200-239 mg/dL: Borderline High] [>239 mg/dL: High] Performed By: #### T YPEC #### [facility] (DEFAULT) [address] [place] [address] Cholesterol in HDL [Mass/Vol] 54 mg/dL Normal >=40 [facility] Comment on above: Result Comment: [<40 mg/dL: Low (High Risk)] [>59 mg/dL: High (Low Risk)] Performed By: #### T YPEC #### [facility] (DEFAULT) [address] [place] [address] Non HDL Cholesterol 86 mg/dL Normal <130 [facility] Comment on above: Performed By: #### T YPEC #### [facility] (DEFAULT) [address] [place] [address] Total Cholesterol/HDL Ratio 2.6 Normal <4.5 [facility] Comment on above: Performed By: #### T YPEC #### [facility] (DEFAULT) [address] [place] [address] Triglyceride [Mass/Vol] 61 mg/dL Normal <150 [facility] Comment on above: Result Comment: [<15 0 mg/dL: Desirable] [150-199 mg/dL: Borderline] [200-499 mg/dL: High] [>500 mg/dL: Very High] Performed By: #### T YPEC #### [facility] (DEFAULT) [address] [place] [address] Laboratory - Chemistry and C hemistry - challengeOrdered By: Oliver Briggs on 05-30-2023 Albumin/Globulin [Mass ratio] 1.0 {ratio} 0.9-2.4 [facility] ALP [Catalytic activity/Vol] 86 U/L 45-117 [facility] ALT [Catalytic activity/Vol] 29 U/L 13-56 [facility] CO2 [Moles/Vol] 29.0 mmol/L 21.0-32.0 [facility] Globulin (S) [Mass/Vol] 4.0 g/dL 2.2-4.2 [facility] Urea nitrogen/Creatinine [Mass ratio] 14.6 mg/mg 10-20 [facility] Laboratory - Chemistry and C hemistry - challengeon 05-30-2023 Bilirubin Ql (U) Moderate (2+) [facility] Glucose Ql (U) Negative [facility] Ketones Ql (U) Negative [facility] pH (U) 6.0 [pH] [facility] Specific gravity (U) [Rel density] 1.015 [facility] Urobilinogen (U) [Mass/Vol] Negative [facility] Laboratory - CoagulationOrde red By: Oliver Briggs on 05-30-2023 PT Coag (PPP) [Time] 13.0 s 11.7-14.9 [facility] Laboratory - Hematology and Cell countsOrdered By: Oliver Briggs on 05-30-2023 MCH (RBC) [Entitic mass] 29.3 pg 27.0-32.0 [facility] MCHC (RBC) [Mass/Vol] 32.7 g/dL 32-36 [facility] Nucleated RBC/100 WBC (Bld) [Ratio] 0 % 0-5 [facility] Platelets (Bld) [#/Vol] 250 10*3/uL 150-450 [facility] Laboratory - Hematology and Cell countson 05-30-2023 Hemoglobin Ql (U) Small [facility] Laboratory - Specimen inform ationon 05-30-2023 Clarity (U) Slightly Hazy [facility] Color (U) YELLOW [facility] Laboratory - Urinalysison Nitrite Ql (U) Negative [facility] Protein Ql (U) Negative [facility] MAGNESIUMon 05-30-2023 Magnesium [Mass/Vol] 2.1 mg/dL Normal 1.6-2.6 [facility] Comment on above: Performed By: #### T YPEC #### [facility] (DEFAULT) [address] [address] Magnesium [Mass/Vol] 2.1 mg/dL 1.6 - 2 .6 mg/dL [facility] Mucus LM Ql (Urine sed)Order ed By: ED PROVIDER on 05-30-2023 Mucus Ql (Urine sed) 0 SEEN /hpf [facility] Nitrite Test strip Ql (U)Ord ered By: ED PROVIDER on 05-30-2023 Nitrite Ql (U) Negative Negative [facility] No Panel Informationon 05-30 Interpretation and review of laboratory results Normal [facility] Urine Leukocytes Negatve [facility] Urine Non-Hemolyzed Blood [facility] No Panel InformationOrdered By: Oliver Briggs on 05-30-2023 Estimated Creatinine Clearance Calc 72.93 ml/min [facility] Estimated GFR (MDRD) Amer 82 mL/min >60 [facility] Comment on above: GFR Calc Estimated GFR (MDRD) Non-Af Amer 67 mL/min >60 [facility] Comment on above: Non- GFR Calc No Panel InformationOrdered By: ED PROVIDER on 05-30-2023 Urine RBC 0-5 SEEN /hpf 0-5 [facility] PHOSPHATE, INORGANICon 05-30 Phosphorous 3.5 mg/dL Normal 2.2-4.6 [facility] Comment on above: Performed By: #### T YPEC #### [facility] (DEFAULT) [address] [place] [address] Phosphate [Mass/Vol] 3.5 mg/dL 2.2 - 4 .6 mg/dL [facility] PTINR-STROKEon 05-30-2023 INR Coag (PPP) [Relative time] 1.1 {INR} Normal 0.9-1.1 [facility] Comment on above: Performed By: #### P TPTT #### [facility] (DEFAULT) [address] [place] [address] [id number] PT Coag (PPP) [Time] 13.6 s Normal 11.9-14.2 [facility] Comment on above: Performed By: #### P TPTT #### [facility] (DEFAULT) [address] [place] [address] [id number] INR Coag (Bld) [Relative time] 1.1 {INR} 0.9 - 1.1 [facility] Interpretation and review of laboratory results Normal [facility] PT Coag (PPP) [Time] 13.6 s [facility] PTTon 05-30-2023 aPTT Coag (Bld) [Time] 30.9 s Normal 24.0-34.3 [facility] Comment on above: Performed By: #### P TPTT #### [facility] (DEFAULT) [address] [place] [address] [id number] aPTT Coag (PPP) [Time] 30.9 s OS [facility] Interpretation and review of laboratory results Normal [facility] Platelet mean volume Shawn-Ec ker (Bld) [Entitic vol]Ordered By: Oliver Briggs on 05-30-2023 Platelet mean volume (Bld) [Entitic vol] 10.5 fL 6.2-12.0 [facility] Protein Test strip Ql (U)Ord ered By: ED PROVIDER on 05-30-2023 Protein Ql (U) Negative Negative [facility] RBC Auto (Bld) [#/Vol]Ordere d By: Oliver Briggs on 05-30-2023 RBC (Bld) [#/Vol] 4.57 10*6/uL 4.2-5.4 [facility] Serum or plasma calcium tim urement (mass/volume)Ordered By: Oliver Briggs on 05-30-2023 Calcium [Mass/Vol] 9.9 mg/dL 8.5-10.1 [facility] Serum or plasma creatinine m easurement (mass/volume)Ordered By: Oliver Briggs on 05-30-2023 Creatinine [Mass/Vol] 0.89 mg/dL 0.55-1.02 [facility] Comment on above: The validity of the calculated GFR & GFRAA in patients over 70 years has not been determined. Clinical correlation is essential. Serum or plasma urea nitroge n measurement (mass/volume)Ordered By: Oliver Briggs on 05-30-2023 Urea nitrogen [Mass/Vol] 13 mg/dL 7-18 [facility] Squamous epithelial cells de tection in urine sediment by light microscopyOrdered By: ED PROVIDER on 05-30-2023 Epithelial cells.squamous LM Ql (Urine sed) 0-5 SEEN /hpf 5-10 [facility] TYPE AND SCREENon 05-30-2023 ABO/RH(D) TYPE [facility] Thin prep Papanicolaou smear with manual screeningOrdered By: Oliver Briggs on 05-30-2023 Thin prep Papanicolaou smear with manual screening 4.1 g/dL 3.2-5.0 [facility] Thin prep Papanicolaou smear with manual screening 19 U/L 15-37 [facility] Thin prep Papanicolaou smear with manual screening 1 5-15 [facility] URINALYSIS REFLEX TO CULTURE PERFORMABLEon 05-30-2023 Appearance (U) Clear Clear [facility] Bacteria LM Ql (Urine sed) ABSENT ABSENT [facility] Color (U) Yellow Yellow [facility] Epithelial cells.squamous LM Ql (Urine sed) 6-10/hpf = 2+ Abnormal 0-2/hpf, 3-5/hpf = 1+ [facility] Glucose Test strip (U) [Mass/Vol] Negative Negative [facility] Interpretation and review of laboratory results Abnormal [facility] Ketones (U) [Mass/Vol] Trace Abnormal Negative [facility] Leukocyte esterase Test strip Ql (U) Small Abnormal Negative [facility] Nitrite Ql (U) Negative Negative [facility] pH (U) 7.0 [pH] 5.0 - 7.0 [facility] Protein (U) [Mass/Vol] Negative Negative [facility] RBC (U) [#/Vol] Trace Abnormal Negative [facility] RBC LM.HPF (Urine sed) [#/Area] 3-5 Abnormal [facility] Specific gravity (U) [Rel density] High 1.001 - 1.035 [facility] Urobilinogen (U) [Mass/Vol] 0.2 E.U./dL 0.2 E.U/dL, 1.0 E.U/dL [facility] WBC LM.HPF (Urine sed) [#/Area] 6 - 10 Abnormal [facility] Urine blood detectionOrdered By: ED PROVIDER on 05-30-2023 RBC Ql (U) 10 /ul Negative [facility] Urine clarityOrdered By: ED PROVIDER on 05-30-2023 Clarity (U) Sl. Cloudy Clear [facility] Urine color determinationOrd ered By: ED PROVIDER on 05-30-2023 Color (U) Yellow Yellow [facility] Urine glucose detectionOrder ed By: ED PROVIDER on 05-30-2023 Glucose Ql (U) Normal mg/dl Normal [facility] Urine leukocyte esterase det ection by dipstickOrdered By: ED PROVIDER on 05-30-2023 Leukocyte esterase Test strip Ql (U) Negative Negative [facility] Urine pHOrdered By: ED PROVI SMITH on 05-30-2023 pH (U) 6.0 [pH] 5.0 - 8.0 [facility] Urine sediment bacteria coun t by microscopy (number/high power field)Ordered By: ED PROVIDER on 05-30-2023 Bacteria LM.HPF (Urine sed) [#/Area] 0 /[HPF] None Seen [facility] Urine specific gravity measu rementOrdered By: ED PROVIDER on 05-30-2023 Specific gravity (U) [Rel density] 1.010 1.002-1.030 [facility] Urine urobilinogen measureme ntOrdered By: ED PROVIDER on 05-30-2023 Urobilinogen Ql (U) Normal mg/dl Normal [facility] PT Progress Noteon 3 PT Progress [...] abd: 4/5-->4+/5-->4 (more content not included)... Normal [facility] Re-eval Noteon 11-17 Therapy Re-eval Note [...] % (more content not included)... Normal [facility] Therapy Re-eval Noteon 10-20 Therapy Re-eval Note [...] code time is 38 minutes. Therapeutic exercise (45297): timed minutes 28, units 2 . Nustep 5' lv 2.0 Slantboard 2x1' Hooklying hip abduction green band 2 x 10 (P reps) Hooklying hip adduction with playground ball with 5 second hold 2 x 10 Bridges 2 x 10 (small range) Bridge w/ hip ad (more content not included)... Normal [facility] PT Progress Noteon 3 PT Progress Note [...] code time is 38 minutes. Therapeutic exercise (85108): timed minutes 28, units 2 . Nustep 5' lv 2.0 Slantboard 2x1' Hooklying hip abduction green band 2 x 10 (P reps) Hooklying hip adduction with playground ball (more content not included)... Normal [facility] PT Progress Noteon 3 PT Progress Note No report was sent Normal [facility] PT Progress Noteon 3 PT Progress Note [...] code time is 43 minutes. Therapeutic exercise (26975): timed minutes 43, units 3 . Nustep [...] code time is 34 minutes. Therapeutic exercise (42820): timed minutes 34, units 3 . Nustep 5' lv 2.0 Slantboard 2x1' (N) x10 LTR each direction 5 hold Supine piriformis stretch figure 4 3x20 second each LE (X) x (more content not included)... Normal [facility] [...] code time is 33 minutes. Therapeutic exercise (62597): timed minutes 33, units 2 . Nustep [...] code time is 38 minutes. Therapeutic exercise (53110): timed minutes 38, units 3 . Nustep 5' (N) x10 LTR each direction Supine piriformis stretch figure 4 3x20 second each LE x10 supine T (more content not included)... Normal [facility] PT Initial Evaluationon 04-2 PT Initial Evaluation [...] and agreement by the patient. Assessment Kaia De Paz, a 67 year old female, arrives to [...] you for this referral and please call [phone] with any questions or concerns. Clinical Presentation: [...] COUNT 0.0 10*3/uL 0.0 - 0.2 10*3/uL [facility] Basophils/100 WBC (Bld) 0.1 % 0.0 - 2.0 % [facility] Differential cell count method Nom (Bld) AUTO DIFF % [facility] Eosinophils (Bld) [#/Vol] 0.0 10*3/uL 0.0 - 0.7 10*3/uL [facility] Eosinophils/100 WBC (Bld) 0.7 % 0.0 - 11.0 % [facility] Erythrocyte distribution width (RBC) [Ratio] 14.7 % High 11.5 - 14.5 % [facility] Hematocrit (Bld) [Volume fraction] 40.8 % 36.0 - 48.0 % [facility] Hemoglobin (Bld) [Mass/Vol] 13.4 g/dL [facility] Interpretation and review of laboratory results Abnormal [facility] Lymphocytes (Bld) [#/Vol] 0.6 10*3/uL Low 1.2 - 3.4 10*3/uL [facility] Lymphocytes/100 WBC (Bld) 10.2 % Low 20.0 - 55.0 % [facility] MCH (RBC) [Entitic mass] 29.2 pg 26.0 - 35.0 PG [facility] MCHC (RBC) [Mass/Vol] 32.7 g/dL [facility] MCV (RBC) [Entitic vol] 89.2 fL [facility] Monocytes (Bld) [#/Vol] 0.3 10*3/uL 0.0 - 0.7 10*3/uL [facility] Monocytes/100 WBC (Bld) 5.2 % 0.0 - 10.0 % [facility] Neutrophils (Bld) [#/Vol] 4.6 10*3/uL 1.4 - 6.5 10*3/uL [facility] Neutrophils/100 WBC (Bld) 83.8 % High 37.0 - 75.0 % [facility] Platelet mean volume (Bld) [Entitic vol] 8.6 fL [facility] Platelets (Bld) [#/Vol] 182 10*3/uL 130. 0 - 400.0 10*3/uL [facility] RBC (Bld) [#/Vol] 4.58 10*6/uL 4.0 - 5.4 10*6/uL [facility] WBC (Bld) [#/Vol] 5.5 10*3/uL 3.6 - 11.0 10*3/uL [facility] COMPREHENSIVE METABOLIC PANE Juan 06-15-2022 Albumin [Mass/Vol] 4.1 G/dl 3.5 - 5.0 G/dl [facility] Albumin/Globulin [Mass ratio] 1.2 {ratio} Low [facility] ALP [Catalytic activity/Vol] 67 U/L [facility] ALT [Catalytic activity/Vol] 27 U/L [facility] AST [Catalytic activity/Vol] 27 U/L [facility] Bilirubin [Mass/Vol] 0.8 mg/dL [facility] Calcium [Mass/Vol] 8.8 mg/dL [facility] Chloride [Moles/Vol] 103 mmol/L [facility] CO2 [Moles/Vol] 25 mmol/L [facility] Creatinine [Mass/Vol] 0.86 mg/dL [facility] GFR COMMENT Average GFR for 60-69 years old = 85. [facility] Comment on above: Chronic Kidney disea se, GFR = <60. Kidney failure, GFR = <15. The GFR estimate is not adjusted for extreme body surface area or acute process, nor has it been validated for women or ethnic groups other than and . GFR/1.73 sq M.predicted among blacks MDRD (S/P/Bld) [Vol rate/Area] 85 mL/min/{1.73_m2} ml/min/1.73sq. m [facility] GFR/1.73 sq M.predicted among non-blacks MDRD (S/P/Bld) [Vol rate/Area] 70 mL/min/{1.73_m2} ml/min/1.73sq. m [facility] Glucose post fast [Mass/Vol] 112 mg/dL High [facility] Comment on above: NORMAL <100 mg/dL PREDIABETES 101-126 mg/dL DIABETES 126 mg/dL or higher Interpretation and review of laboratory results Abnormal [facility] Potassium [Moles/Vol] 3.7 mmol/L [facility] Protein [Mass/Vol] 7.5 g/dL [facility] Sodium [Moles/Vol] 136 mmol/L [facility] Urea nitrogen [Mass/Vol] 14 mg/dL [facility]domen and Pelvis W radha [...] a nonspecific finding. 2. Diverticulosis without diverticulitis. [facility] Radiology Study observation (narrative) [facility] Abdomen and Pelvis W cont rast IVOrdered By: Felicia Jaeger on 06-15-2022 [facility] Work Phone: LACTATE, BLOODon 06-15-2022 Lactate [Moles/Vol] 1.0 mmol/L 0.7 - 2. 0 mmol/L [facility] LIPASEon 06-15-2022 Lipase [Catalytic activity/Vol] 37 U/L 23 - 300 U/L [facility] MAGNESIUMon 06-15-2022 Magnesium [Mass/Vol] 2.0 mg/dL [facility] No Panel Informationon 06-15 [facility] RAPID STREP A ANTIGENon S. pyogenes Ag Ql (Throat) Negative NEGATIVE [facility] Comment on above: STREP CULTURE TO FOL LOW TESTING PERFORMED BY ANGEL [facility] TROPONIN I, HIGH SENSITIVITY on 06-15-2022 TROPONIN I, HIGH SENSITIVITY <2 0 - 12 pg/mL [facility] Comment on above: Indeterminant: >12 to 100 pg/mL female >20 to 100 pg/mL male Indicative of myocardial injury. Serial sampling is recommended, a change of greater than or equal to 20 pg/mL is indicative of acute coronary syndrome. [facility] URINALYSIS, MACROon 06-15-19 23 Bilirubin Ql (U) Negative NEGATIVE [facility] Clarity (U) CLEAR CLEAR [facility] Color (U) YELLOW YELLOW [facility] Glucose Test strip (U) [Mass/Vol] Negative NEGATIVE mg/dl [facility] Hemoglobin Ql (U) TRACE-INTACT Abnormal NEGATIVE [facility] Interpretation and review of laboratory results Abnormal [facility] Ketones (U) [Mass/Vol] Negative NEGATIVE mg/d l [facility] Leukocyte esterase Test strip Ql (U) SMALL Abnormal NEGATIVE [facility] Nitrite Ql (U) Negative NEGATIVE [facility] pH (U) 5.5 [pH] 5.0 - 7.0 [facility] Protein Ql (U) Negative NEGATIVE mg/dl [facility] Specific gravity (U) [Rel density] >1.030 High 1.010 - 1.025 [facility] Urobilinogen (U) [Mass/Vol] 0.2 mg/dL [facility] URINE MICROSCOPICon 06-15-19 23 Bacteria LM.HPF (Urine sed) [#/Area] Negative NEGATIVE [facility] Casts LM.LPF (Urine sed) [#/Area] NONE NONE /LPF [facility] Crystals LM Nom (Urine sed) NONE NONE [facility] Epithelial cells LM Ql (Urine sed) 1 TO 5 /HPF [facility] Mucus Ql (Urine sed) Negative NEGATIVE [facility] RBC LM.HPF (Urine sed) [#/Area] Negative NEGATIVE /HPF [facility] Urine sediment comments LM Daniel (Urine sed) CULTURE CRITERIA NOT MET, NO CULTURE PERFORMED. [facility] WBC LM.HPF (Urine sed) [#/Area] 1 TO 5 NEGATIVE /HPF [facility] Therapy Communicationon 05-07 Therapy Communication Message KAIA DE PAZ was (D/C)- last seen: 03/27/22. Pt self-discharged from skilled Physical Therapy at this time. Pt was not able to be fully re-assessed due to self-discharging and not attending final re-evaluation appointment. Refer back in future if necessary. Signatures Electronically signed by : Aleida Metzger, PT; May 16 2022 12:48PM EST (Author) Normal [facility] Therapy Communicationon 03-09 Therapy Communication Message KAIA DE PAZ no showed today . Signatures Electronically signed by : Miracle Schmitz PTA; Apr 05 2022 9:39AM EST (Author) Normal [facility] Therapy Communicationon - Therapy Communication Message KAIA DE PAZ canceled today . Signatures Electronically signed by [...] code time is 45 minutes. Therapeutic exercise (69409): timed minutes 29, units 2 . Nustep [...] Mini squats 2 x 10 Hip IR [place] 2 x 10 Side steps 2 x 10 Hip Hikes 2 x 10 D/C to HEP: Hip Flexor stretch 10 x 10 Standing IT/QL stretch 10 x 10 SKTC 2 x 10 Glute squeezes 2 x 10 Supine hip ADD w/ playball TrA 2 x 10 Posterior pelvic tilt 2 x 10 LTR 2 x 10 . Manual Therapy (09548): timed minutes 10, units 1 . STM to Left hip flexor, TFL, Glutes Max and Glutes Med. Aquatic Therapy (56570):. All exercises preformed in 70-75% unloading unless [...] clamshell 3. Hip hikes 1. Bridges with marches 2. S/L hip abd + ext Access Code: [email or web address] URL: [email or web address] Date: 02/20/2022 Prepared by: Aleida Metzger Exercises Supine Figure 4 Piriformis Stretch - 1 x daily - 7 x weekly - 1 sets - 5 (more content not included)... Normal [facility] PT Progress Noteon 2 PT Progress Note [...] States that she had to drive from [place] today but had her heating pad. States [...] code time is 39 minutes. Therapeutic exercise (61879): timed minutes 29, units 2 . Nustep 5' Lv 2 Piriformis 5x10 holds B/L FIgure 4 w/ twist for QL 5x10 holds B/L (N) Bridge w/ july (N) S/L Hip ABD AND Ext combo w/ band (N) Standing hip ABD 2 x 10 Standing hip Ext 2 x 10 Heel raises 2 x 10 Mini squats 2 x 10 Hip IR [place] 2 x 10 Side steps 2 x 10 Hip Hikes 2 x 10 (N) D/C to HEP: Hip Flexor stretch 10 x 10 Standing IT/QL stretch 10 x 10 SKTC 2 x 10 Glute squeezes 2 x 10 Supine hip ADD w/ playball TrA 2 x 10 Posterior pelvic tilt 2 x 10 LTR 2 x 10 . Manual Therapy (64869): timed minutes 10, units 1 . STM to Left hip flexor, TFL, Glutes Max and Glutes Med. Aquatic Therapy (29734):. All exercises preformed in 70-75% unloading unless [...] S/L hip abd + ext Access Code: [email or web address] URL: [email or web address] Date: 02/20/2022 Prepared by: Aleida Metzger Exercises [...] Ball on (more content not included)... Normal [facility] PT Progress Noteon 2 PT Progress Note [...] Subjective Patient reports:. Pt notes she played [email or web address] and tolerated well. Pt notes her HEP is going. Has not been getting as frequent pain into LLE. Pt notes there was only one day in [place] where she wished she had a heating [...] code time is 40 minutes. Therapeutic exercise (92806): timed minutes 26, units 2 . Nustep [...] Mini squats 2 x 10 Hip IR [place] 2 x 10 Side steps 2 x 10 D/C to HEP: Hip Flexor stretch 10 x 10 Standing IT/QL stretch 10 x 10 SKTC 2 x 10 Glute squeezes 2 x 10 Supine hi (more content not included)... Normal [facility] Therapy Re-eval Noteon 03-20 Therapy Re-eval Note [...] Subjective Patient reports:. Pt notes she played Tom[employer] ball and tolerated well. Pt notes her HEP is going. Has not been getting as frequent pain into LLE. Pt notes there was only one day in [place] where she wished she had a heating [...] code time is 40 minutes. Therapeutic exercise (09624): timed minutes 26, units 2 . Nustep [...] Mini squats 2 x 10 Hip IR [place] 2 x 10 Side steps 2 x [...] code time is 44 minutes. Therapeutic exercise (29566): timed minutes 44, units 3 . Nustep [...] 10 LTR 2 x 10 Hip IR [place] 2 x 10 . Manual Therapy (20497):. STM to Left hip flexor, TFL, Glutes Max and Glutes Med (X). Aquatic Therapy (36316):. All exercises preformed in 70-75% unloading unless [...] exit 3? . Provided today:. Access Code: [email or web address] URL: [email or web address] Date: 02/20/2022 Prepared by: Aleida Metzger Exercises [...] and technique. Exercises given are listed below: [employer] Access Code [email or web address] Heel raises 2 x 10 (N) Glute squeezes 2 x (more content not included)... Normal [facility] PT Progress Noteon 2 PT Progress Note [...] code time is 44 minutes. Therapeutic exercise (51403): timed minutes 44, units 3 . Nustep [...] 10 LTR 2 x 10 Hip IR [place] 2 x 10 . Manual Therapy (62927):. STM to Left hip flexor, TFL, Glutes Max and Glutes Med (X). Aquatic Therapy (99053):. All exercises preformed in 70-75% unloading unless [...] exit 3? . Provided today:. Access Code: [email or web address] URL: [email or web address] Date: 02/20/2022 Prepared by: Aleida Metzger Exercises [...] and technique. Exercises given are listed below: [employer] Access Code [email or web address] Heel raises 2 x 10 (N) Glute [...] code time is 44 minutes. Therapeutic exercise (07918): timed minutes 44, units 3 . Nustep [...] 10 LTR 2 x 10 Hip IR [place] 2 x 10 . Manual Therapy (63318):. STM to Left hip flexor, TFL, Glutes Max and Glutes Med (X). Aquatic Therapy (43897):. All exercises preformed in 70-75% unloading unless [...] exit 3? . Provided today:. Access Code: [email or web address] URL: [email or web address] Date: 02/20/2022 Prepared by: Aleida Metzger Exercises [...] below: ME (more content not included)... Normal [facility] PT Progress Noteon 2 PT Progress Note [...] code time is 44 minutes. Therapeutic exercise (41399): timed minutes 44, units 3 . Nustep [...] (N) LTR 2 x 10 Hip IR [place] 2 x 10 (N) . Manual Therapy (86314): timed minutes , units . STM to Left hip flexor, TFL, Glutes Max and Glutes Med (X). Aquatic Therapy (23171):. All exercises preformed in 70-75% unloading unless [...] exit 3? . Provided today:. Access Code: [email or web address] URL: [email or web address] Date: 02/20/2022 Prepared by: Aleida Metzger Exercises [...] code time is 40 minutes. Therapeutic exercise (35734): timed minutes 25, units 2 . Pt re-assessed for updated POC, updated/reviewed HEP, and discussed continued symptom management Piriformis 2x10 holds B/L (N) Hip Flexor stretch (A) Standing IT/QL stretch (A) SKTC (A) Not 02/20: Nustep 5' Standing hip ABD 2 x 10 Standi (more content not included)... Normal [facility] Therapy Re-eval Noteon 02-20 Therapy Re-eval Note [...] code time is 40 minutes. Therapeutic exercise (20173): timed minutes 25, units 2 . Pt re-assessed for updated POC, updated/reviewed HEP, and discussed continued symptom management Piriformis 2x10 holds B/L (N) Hip Flexor stretch (A) Standing IT/QL stretch (A) SKTC (A) Not 02/20: Nustep 5' Standing hip ABD 2 x 10 (more content not included)... Normal [facility] PT Progress Noteon 2 PT Progress Note [...] for 4 weeks, for [address]; final 5 visits at [facility]. Potential to achieve rehab goals is fair: [...] code time is 41 minutes. Therapeutic exercise (11534): timed minutes 41, units 3 . Nustep [...] (N) LTR 2 x 10 Hip IR [place] 2 x 10 (N) . Aquatic Therapy (37565):. All exercises preformed in 70-75% unloading unless [...] and technique. Exercises given are listed below: [employer] Access Code [email or web address] Heel raises 2 x 10 (N) Glute squeezes 2 x 10 Side steps 2 x 10 (N) Supine hip ADD w/ playball TrA 2 x 10 (N) Posterior pelvic tilt 2 x 10 (N). 'Scores and Scales' Signatures Electronically signed by : Miracle Schmitz PODIATRIC ASSISTANT; Feb 13 2022 2:03PM EST (Author) Electronically [...] . x3 pool; final 5 visits at [facility]. Potential to achieve rehab goals is fair: [...] code time is 40 minutes. Therapeutic exercise (10210): timed minutes 40, units 3 . Nustep 5' (N) Heel raises 2 x 10 (N) Glute squeezes 2 x 10 Side steps 2 x 10 (N) Supine hip ADD w/ playball TrA 2 x 10 (N) Posterior pelvic tilt 2 x 10 (N) LTR 2 x 10 (N) Hip IR (A) . Aquatic Therapy (71260):. All exercises preformed in 70-75% unloading unless [...] and technique. Exercises given are listed below: [employer] Access Code [email or web address] Heel raises 2 x 10 (N) Glute squeezes 2 x 10 Side steps 2 x 10 (N) Supine hip ADD w/ playball TrA 2 x 10 (N) Posterior pelvic tilt 2 x 10 (N). 'Scores and Scales' Signatures Electronically signed by : Miracle Schmitz PODIATRIC ASSISTANT; Feb 10 2022 9:29AM EST (Author) Electronically signed by : lAeida Metzger PT; Feb 10 2022 6:16PM EST Normal [facility] PT Progress Noteon 2 PT Progress Note [...] . x3 pool; final 5 visits at [facility]. Potential to achieve rehab goals is fair: [...] back pain. Patient to be transferred to [place] for out patient therapy. Precautions: none. Fall Risk: none Treatment Time in clinic started at 10:00 am Time in clinic ended at 10:45 am Total time in clinic is 45 minutes. Total timed code time is 41 minutes. Aquatic Therapy (41284): timed minutes 41, units 3 . All [...] Scales' Signatures Electronically signed by : Mel Jimenez, PODIATRIC ASSISTANT; Feb 08 2022 10:45AM EST (Author) Electronically signed by : Saturnino Horan, PT; Feb 08 2022 11:15AM EST Normal [facility] PT Progress Noteon 2 PT Progress Note [...] . x3 pool; final 5 visits at [facility]. Potential to achieve rehab goals is fair: [...] Patient reports:. Patient reports back pain of 10/14, no LE Sx. States that yesterday she had LE Sx, stating that Sx where moderate. States that her pain is in her spine today, stating that it could be her arthritis today. Reports some muscle soreness in core. 07/14 back pain at end of session. Precautions: none. Fall Risk: none Treatment Time in clinic started at 9:15 Time in clinic ended at 10:00 Total time in clinic is 45 minutes. Total timed code time is 41 minutes. Aquatic Therapy (28031): timed minutes 43, units 3 . All [...] Signatures Electronically signed by : Miracle Moreno, PODIATRIC ASSISTANT; Feb 02 2022 9:57AM EST (Author) Electronically signed by : Saturnino Horan, PT; Feb 02 2022 10:03AM EST Electronically signed by : Aleida Metzger, PT; May 16 2022 12:47PM EST (Author) Normal [facility] PT Progress Noteon PT [...] . x3 pool; final 5 visits at [facility]. Potential to achieve rehab goals is fair: [...] code time is 41 minutes. Aquatic Therapy (06983): timed minutes 43, units 3 . All [...] Signatures Electronically signed by : Miracle Moreno PODIATRIC ASSISTANT; Jan 31 2022 11:28AM EST (Author) Electronically signed by : Saturnino Horan PT; Feb 01 2022 6:55AM EST Normal [facility] Absolute lymphocyte counton 01-28-2022 Lymphocytes Auto (Unsp spec) [#/Vol] 1.24 10*3/uL 0.83-4.51 [facility] Work Phone: Basophil percentageon 2021 Basophils/100 WBC (Bld) 0.5 % 0-1 [facility] Work Phone: [phone] Bilirubin [Mass/Vol] 0.40 mg/dL 0.20-1.00 [facility] Work Phone: [phone] Comment on above: For patients on eltr ombopag therapy, use of Dimension Sabin TBIL is not recommended. Chloride [Moles/Vol] 109 mmol/L 98-107 [facility] Work Phone: Eosinophils/100 WBC (Bld) 2.5 % 0-5 [facility] Work Phone: Glucose [Mass/Vol] 102 mg/dL 74-106 [facility] Work Phone: [phone] Comment on above: Fasting Glucose resu lt from 100 to 125 mg/dL suggests IMPAIRED HOMEOSTASIS per A.D.A. criteria. Neutrophils (Bld) [#/Vol] 2.5 10*3/uL 2.0-7.7 [facility] Work Phone: Neutrophils/100 WBC (Bld) 57.4 % 47-70 [facility] Work Phone: [phone] Potassium [Moles/Vol] 3.9 mmol/L 3.5-5.1 [facility] Work Phone: [phone] Protein [Mass/Vol] 7.6 g/dL 6.4-8.2 [facility] Work Phone: [phone] Sodium [Moles/Vol] 143 mmol/L 136-145 [facility] Work Phone: WBC (Bld) [#/Vol] 4.3 10*3/uL 4.4-11.0 [facility] Work Phone: Blood erythrocytes count (nu mber/volume)on 01-28-2022 RBC (Bld) [#/Vol] 4.72 10*6/uL 4.2-5.4 [facility]: Blood hemoglobin measurement (mass/volume)on 01-28-2022 Hemoglobin (Bld) [Mass/Vol] 13.8 g/dL 12.0-15.0 [facility] Work Phone: Blood lymphocytes/100 leukoc yteson 01-28-2022 Lymphocytes/100 WBC (Bld) 28.6 % 19-41 [facility] Work Phone: Blood monocytes/100 leukocyt eson 01-28-2022 Monocytes/100 WBC (Bld) 10.8 % 0-10 [facility] Work Phone: Blood platelet mean volumeon 01-28-2022 Platelet mean volume (Bld) [Entitic vol] 10.7 fL 6.2-12.0 [facility] Work Phone: Determination of erythrocyte mean corpuscular volume (MCV)on 01-28-2022 MCV (RBC) [Entitic vol] 94.3 fL 81-99 [facility] Work Phone: Hematocrit Auto (Bld) [Volum e fraction]on 01-28-2022 Hematocrit (Bld) [Volume fraction] 44.5 % 37-47 [facility] Work Phone: Laboratory - Chemistry and C hemistry - challengeon 01-28-2022 ALP [Catalytic activity/Vol] 80 U/L 45-117 [facility] Work Phone: ALT [Catalytic activity/Vol] 37 U/L 13-56 [facility] Work Phone: CO2 [Moles/Vol] 26.0 mmol/L 21.0-32.0 [facility] Work Phone: Globulin (S) [Mass/Vol] 3.8 g/dL 2.2-4.2 [facility] Work Phone: Lipase [Catalytic activity/Vol] 213 U/L 73-393 [facility] Work Phone: Urea nitrogen/Creatinine [Mass ratio] 15.9 mg/mg 10-20 [facility] Work Phone: Laboratory - Hematology and Cell countson 01-28-2022 Erythrocyte distribution width (RBC) [Entitic vol] 51.2 fL 35.1-43.9 [facility] Work Phone: Erythrocyte distribution width (RBC) [Ratio] 14.6 % 11.6-14.6 [facility] Work Phone: Immature granulocytes/100 WBC (Bld) 0.200 % 0.0-0.9 [facility] Work Phone: Comment on above: IG% - Immature Granu locytes (promyelocytes, myelocytes and metamyelocytes) > 1% indicates that a LEFT SHIFT is Present. MCH (RBC) [Entitic mass] 29.2 pg 27.0-32.0 [facility] Work Phone: Nucleated RBC/100 WBC (Bld) [Ratio] 0 % 0-5 [facility] Work Phone: MCHC Auto (RBC) [Mass/Vol]on 01-28-2022 MCHC (RBC) [Mass/Vol] 31.0 g/dL 32-36 [facility] Work [facility]: No Panel Informationon 01-28 Estimated Creatinine Clearance Calc 53.69 ml/min [facility] Work Phone: Estimated GFR (MDRD) Amer 76 mL/min >60 [facility] Work Phone: Comment on above: GFR Calc Estimated GFR (MDRD) Non-Af Amer 63 mL/min >60 [facility] Work Phone: Comment on above: Non- GFR Calc Platelets bldon 01-28-2022 Platelets (Bld) [#/Vol] 196 10*3/uL 150-450 [facility] Work Phone: Serum or plasma albumin tim urement (mass/volume)on 01-28-2022 Albumin [Mass/Vol] 3.8 g/dL 3.2-5.0 [facility] Work Phone: Serum or plasma albumin/glob ulin mass ratioon 01-28-2022 Albumin/Globulin [Mass ratio] 1.0 {ratio} 0.9-2.4 [facility] Work Phone: Serum or plasma calcium tim urement (mass/volume)on 01-28-2022 Calcium [Mass/Vol] 9.4 mg/dL 8.5-10.1 [facility] Work Phone: Serum or plasma creatinine m easurement (mass/volume)on 01-28-2022 Creatinine [Mass/Vol] 0.94 mg/dL 0.55-1.02 [facility] Work Phone: Comment on above: The validity of the calculated GFR & GFRAA in patients over 70 years has not been determined. Clinical correlation is essential. Serum or plasma urea nitroge n measurement (mass/volume)on 01-28-2022 Urea nitrogen [Mass/Vol] 15 mg/dL 7-18 [facility] Work Phone: Thin prep Papanicolaou smear with manual screeningon 01-28-2022 Thin prep Papanicolaou smear with manual screening 29 U/L 15-37 [facility] Work Phone: Thin prep Papanicolaou smear with manual screening 8 5-15 [facility] Work Phone: PT Initial Evaluationon 01-06 PT [...] . x3 pool; final 5 visits at [facility]. Potential to achieve rehab goals is fair: [...] learning preventative care measures . 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 Current Status: improving . injections. Patient Awareness: Patient is aware of her diagnosis and prognosis. Personal Factors That May Impact Care:. ID confirmed with B-day; speaks botswanan No obtrusive barriers to learning identified/observed. Objective [...] Touchworks COMPREHENSIVE PANELon 2021 ALBUMIN Canceled Normal [facility] Comment on above: Order Comment: TEST COMPREHENSIVE PANEL WAS CANCELLED, 11/15/2021 10:43 WAS UNABLE TO OBTAIN BLOOD 11/15/2021. Performed By: #### C MP #### [place] [address] ALKALINE PHOSPHATASE Canceled Normal [facility] Comment on above: Order Comment: TEST COMPREHENSIVE PANEL WAS CANCELLED, 11/15/2021 10:43 WAS UNABLE TO OBTAIN BLOOD 11/15/2021. Performed By: #### C MP #### [place] [address] ALT Canceled Normal [facility] Comment on above: Order Comment: TEST COMPREHENSIVE PANEL WAS CANCELLED, 11/15/2021 10:43 WAS UNABLE TO OBTAIN BLOOD 11/15/2021. Result Comment: Samantha ents treated with Sulfasalazine may generate falsely decreased results for ALT. Performed By: #### C MP #### [place] [address] ANION GAP Canceled Normal [facility] Comment on above: Order Comment: TEST COMPREHENSIVE PANEL WAS CANCELLED, 11/15/2021 10:43 WAS UNABLE TO OBTAIN BLOOD 11/15/2021. Performed By: #### C MP #### [place] [address] AST Canceled Normal [facility] Comment on above: Order Comment: TEST COMPREHENSIVE PANEL WAS CANCELLED, 11/15/2021 10:43 WAS UNABLE TO OBTAIN BLOOD 11/15/2021. Performed By: #### C MP #### [address] [address] BICARBONATE Canceled Normal [facility] Comment on above: Order Comment: TEST COMPREHENSIVE PANEL WAS CANCELLED, 11/15/2021 10:43 WAS UNABLE TO OBTAIN BLOOD 11/15/2021. Performed By: #### C MP #### [address] [address] BILIRUBIN,TOTAL Canceled Normal [facility] Comment on above: Order Comment: TEST COMPREHENSIVE PANEL WAS CANCELLED, 11/15/2021 10:43 WAS UNABLE TO OBTAIN BLOOD 11/15/2021. Performed By: #### C MP #### [address] [address] CALCIUM Canceled Normal [facility] Comment on above: Order Comment: TEST COMPREHENSIVE PANEL WAS CANCELLED, 11/15/2021 10:43 WAS UNABLE TO OBTAIN BLOOD 11/15/2021. Performed By: #### C MP #### [address] [address] CHLORIDE Canceled Normal [facility] Comment on above: Order Comment: TEST COMPREHENSIVE PANEL WAS CANCELLED, 11/15/2021 10:43 WAS UNABLE TO OBTAIN BLOOD 11/15/2021. Performed By: #### C MP #### [address] [address] CREATININE Canceled Normal [facility] Comment on above: Order Comment: TEST COMPREHENSIVE PANEL WAS CANCELLED, 11/15/2021 10:43 WAS UNABLE TO OBTAIN BLOOD 11/15/2021. Performed By: #### C MP #### [address] [address] eGFR FEMALE Canceled Normal [facility] Comment on above: Order Comment: TEST COMPREHENSIVE PANEL WAS CANCELLED, 11/15/2021 10:43 WAS UNABLE TO OBTAIN BLOOD 11/15/2021. Result Comment: CALC ULATIONS OF ESTIMATED GFR ARE PERFORMED USING THE 2020 CKD-EPI STUDY REFIT EQUATION WITHOUT THE RACE VARIABLE FOR THE IDMS-TRACEABLE CREATININE METHODS. https://jasn.asnjournals.org/content/early/ 751936 Performed By: #### C MP #### [address] [address] eGFR MALE Canceled Normal [facility] Comment on above: Order Comment: TEST COMPREHENSIVE PANEL WAS CANCELLED, 11/15/2021 10:43 WAS UNABLE TO OBTAIN BLOOD 11/15/2021. Result Comment: CALC ULATIONS OF ESTIMATED GFR ARE PERFORMED USING THE 2020 CKD-EPI STUDY REFIT EQUATION WITHOUT THE RACE VARIABLE FOR THE IDMS-TRACEABLE CREATININE METHODS. https://jasn.asnjournals.org/content/early/ 793721 Performed By: #### C MP #### [address] [address] GLUCOSE Canceled Normal [facility] Comment on above: Order Comment: TEST COMPREHENSIVE PANEL WAS CANCELLED, 11/15/2021 10:43 WAS UNABLE TO OBTAIN BLOOD 11/15/2021. Performed By: #### C MP #### [address] [address] POTASSIUM Canceled Normal [facility] Comment on above: Order Comment: TEST COMPREHENSIVE PANEL WAS CANCELLED, 11/15/2021 10:43 WAS UNABLE TO OBTAIN BLOOD 11/15/2021. Performed By: #### C MP #### [address] [address] SODIUM Canceled Normal [facility] Comment on above: Order Comment: TEST COMPREHENSIVE PANEL WAS CANCELLED, 11/15/2021 10:43 WAS UNABLE TO OBTAIN BLOOD 11/15/2021. Performed By: #### C MP #### [address] [address] TOTAL PROTEIN Canceled Normal [facility] Comment on above: Order Comment: TEST COMPREHENSIVE PANEL WAS CANCELLED, 11/15/2021 10:43 WAS UNABLE TO OBTAIN BLOOD 11/15/2021. Performed By: #### C MP #### [address] [address] UREA NITROGEN Canceled Normal [facility] Comment on above: Order Comment: TEST COMPREHENSIVE PANEL WAS CANCELLED, 11/15/2021 10:43 WAS UNABLE TO OBTAIN BLOOD 11/15/2021. Performed By: #### C MP #### [address] [address] HEMOGLOBIN A1Con 11-15-2021 EST.AVG.GLUCOSE Canceled Normal [facility] Comment on above: Order Comment: TEST HEMOGLOBIN A1C WAS CANCELLED, 11/15/2021 10:43 WAS UNABLE TO OBTAIN BLOOD 11/15/2021. Performed By: #### H BA1E #### [address] [address] HGB A1C Canceled Normal [facility] Comment on above: Order [...] 13-18 <7.5 7-12 <8.0 0- 6 7.5-8.5 [employer] [place] [employer]. Diabetes Care 33(S1), May 2009. Performed By: #### H BA1E #### [address] [address] LIPID PANEL (CORONARY RISK 2 )on 11-15-2021 CHOLESTEROL Canceled Normal [facility] Comment on above: Order [...] dosing. Performed By: #### L IPID #### [address] [address] CHOLESTEROL/HDL RATIO Canceled Normal [facility] Comment on above: Order Comment: TEST LIPID PANEL (CORONARY RISK 2) WAS CANCELLED, 11/15/2021 10:43 WAS UNABLE TO OBTAIN BLOOD 11/15/2021. Performed By: #### L IPID #### [address] [address] HDL-CHOLESTEROL Canceled Normal [facility] Comment on above: Order Comment: TEST LIPID PANEL (CORONARY RISK 2) WAS CANCELLED, 11/15/2021 10:43 WAS UNABLE TO OBTAIN BLOOD 11/15/2021. Result Comment: . AGE VERY LOW LOW NORMAL HIGH 0-19 Y < 35 < 40 40-45 ---- 20-24 Y ---- < 40 >45 ---- >24 Y ---- < 40 40-60 >60 . Performed By: #### L IPID #### [address] [address] LDL Canceled Normal [facility] Comment on above: Order [...] . Performed By: #### L IPID #### [address] [address] NON-HDL CHOLESTEROL Canceled Normal [facility] Comment on above: Order Comment: TEST [...] . Performed By: #### L IPID #### [address] [address] TRIGLYCERIDES Canceled Normal [facility] Comment on above: Order Comment: TEST [...] dosing. Performed By: #### L IPID #### [address] [address] VLDL Canceled Normal [facility] Comment on above: Order Comment: TEST LIPID PANEL (CORONARY RISK 2) WAS CANCELLED, 11/15/2021 10:43 WAS UNABLE TO OBTAIN BLOOD 11/15/2021. Performed By: #### L IPID #### [address] [address] MAGNESIUMon 11-15-2021 MAGNESIUM Canceled Normal [facility] Comment on above: Order Comment: TEST MAGNESIUM WAS CANCELLED, 11/15/2021 10:43 WAS UNABLE TO OBTAIN BLOOD 11/15/2021. Performed By: #### M G #### [address] [address] TSHon 11-15-2021 TSH Canceled Normal [facility] Comment on above: Order Comment: TEST TSH WAS CANCELLED, 11/15/2021 10:43 WAS UNABLE TO OBTAIN BLOOD 11/15/2021. Result Comment: TSH testing is performed using different testing methodology at [facility] than at other [facility]. Direct result comparisons should only be made within the same method. Performed By: #### T SH2 #### [address] [address] VITAMIN B12on 11-15-2021 VITAMIN B12 Canceled Normal [facility] Comment on above: Order Comment: TEST VITAMIN B12 WAS CANCELLED, 11/15/2021 10:43 WAS UNABLE TO OBTAIN BLOOD 11/15/2021. Performed By: #### V TB12 #### [address] [address] VITAMIN D, 25-HYDROXYon 11-04 VITAMIN D, 25-HYDROXY Canceled Normal [facility] Comment on above: Order Comment: TEST VITAMIN D, 25-HYDROXY WAS CANCELLED, 11/15/2021 10:43 WAS UNABLE TO OBTAIN BLOOD 11/15/2021. Performed By: #### V TDOH #### [address] [address] HOLTER MONITon 07-30-2019 HOLTER MONIT This is [...] few PVCs, PACs, and baseline noise Normal [facility] XR Hip 2-3 Views Lefton 0 XR Hip 2-3 Views Left Exam Date/Time: 01/07/2019 10:04 EDT Reason for Exam: left hip pain Report STUDY: XR Hip 2-3 Views Left; 01/07/2019 10:04 am INDICATION: left hip pain. COMPARISON: None. ACCESSION NUMBER(S): [id number] ORDERING CLINICIAN: Edgar Holbrook TECHNIQUE: AP and lateral views of the left hip were obtained. FINDINGS: There is no acute fracture or dislocation identified. Rysa-gz-yeuassza hypertrophic degenerative changes are seen in the left sacroiliac joint. Mild joint space narrowing and small marginal osteophytes are seen in the left hip. IMPRESSION: 1. No evidence of acute fracture or dislocation. 2. Degenerative changes, as described above. FINAL REPORT Dictated: 01/08/2019 9:23 am Antoine Perkins MD Signed (Electronic Signature): 01/08/2019 9:23 am Signed by: Antoine Prekins MD Technologist: [facility] Vital Signs Date Time Vital Sign Value Performing Clinician Facility 12-27-2024 12:52-0400 Body temperature 98.6 [degF] Dr. Romeo Shankar MD Work Phone: [facility] 12-27-2024 12:52-0400 Diastolic blood pressure 78 mm[Hg] Dr. Romeo Shankar MD Work Phone: [facility] 12-27-2024 12:52-0400 Heart rate 60 /min Dr. Romeo Shankar MD Work Phone: [facility] 12-27-2024 12:52-0400 Respiratory rate 16 /min Dr. Romeo Shankar MD Work Phone: [facility] 12-27-2024 12:52-0400 SaO2% (BldA) [Mass fraction] 97 % Dr. Romeo Shankar MD Work Phone: [facility] 12-27-2024 12:52-0400 Systolic blood pressure 137 mm[Hg] Dr. Romeo Shankar MD Work Phone: [facility] 12-27-2024 09:32-0400 Body height 167.[address] Romeo Shankar MD Work Phone: 3(239)[phone] [place] [address] 12-27-2024 09:32-0400 Body mass index (BMI) [Ratio] 31.8 kg/m2 Dr. Romeo Shankar MD Work Phone: 9(706)323-607824 [place] [address] 12-27-2024 09:32-0400 Body weight 89.[address] Romeo Shankar MD Work Phone: 2(876)152-683224 [place] [address] 11-28-2024 12:42-0400 Body height 167.[address] Romeo Shankar MD Work Phone: 9(189)794-102124 [place] [address] 11-28-2024 12:42-0400 Body mass index (BMI) [Ratio] 33 kg/m2 Dr. Romeo Shankar MD Work Phone: 1(447)471-815624 [place] [address] 11-28-2024 12:42-0400 Body temperature 98.6 [degF] Dr. Romeo Shankar MD Work Phone: 5(409)328-865124 [place] [address] 11-28-2024 12:42-0400 Body weight 92.[address] Romeo Shankar MD Work Phone: 4(068)429-934924 [place] [address] 11-28-2024 12:42-0400 Diastolic blood pressure 70 mm[Hg] Dr. Romeo Shankar MD Work Phone: 9(896)310-228524 [place] [address] 11-28-2024 12:42-0400 Heart rate 54 /min Dr. Romeo Shankar MD Work Phone: 4(591)601-469424 [place] [address] 11-28-2024 12:42-0400 Respiratory rate 18 /min Dr. Romeo Shankar MD Work Phone: 7(044)185-067024 [place] [address] 11-28-2024 12:42-0400 SaO2% (BldA) [Mass fraction] 99 % Dr. Romeo Shankar MD Work Phone: 3(697)303-908524 [place] [address] 11-28-2024 12:42-0400 Systolic blood pressure 143 mm[Hg] Dr. Romeo Shankar MD Work Phone: 8(080)809-009024 [place] [address] 08-11-2024 15:09-0400 Body mass index (BMI) [Ratio] 34.38 kg/m2 Zenobia Resendez MD Work Phone: [facility] 08-11-2024 15:09-0400 Body weight 92.99 kg Zenobia Resendez MD Work Phone: [facility] 08-11-2024 15:09-0400 Diastolic blood pressure 70 mm[Hg] Zenobia Resendez MD Work Phone: [facility] 08-11-2024 15:09-0400 Systolic blood pressure 120 mm[Hg] Zenobia Resendez MD Work Phone: [facility] 07-24-2023 14:35-0400 Body height 165.1 cm Alyssa Schultz MD Work Phone: [facility] 06-01-2023 12:09-0500 Body height 167.6 cm Alyssa Schultz MD Work Phone: [facility] 06-01-2023 12:09-0500 Body mass index (BMI) [Ratio] 34.89 kg/m2 Alyssa Schultz MD Work Phone: [facility] 06-01-2023 12:09-0500 Body temperature 98.1 [degF] Alyssa Schultz MD Work Phone: [facility] 06-01-2023 12:09-0500 Body weight 98 kg Alyssa Schultz MD Work Phone: [facility] 06-01-2023 12:09-0500 Diastolic blood pressure 62 mm[Hg] Alyssa Schultz MD Work Phone: [facility] 06-01-2023 12:09-0500 Heart rate 58 /min Alyssa Schultz MD Work Phone: [facility] 06-01-2023 12:09-0500 Respiratory rate 18 /min Alyssa Schultz MD Work Phone: [facility] 06-01-2023 12:09-0500 SaO2% (BldA) [Mass fraction] 96 % Alyssa Schultz MD Work Phone: [facility] 06-01-2023 12:09-0500 Systolic blood pressure 128 mm[Hg] Alyssa Schultz MD Work Phone: [facility] 05-30-2023 18:41-0500 Diastolic blood pressure 70 mm[Hg] Dr. Edgar Holbrook Work Phone: [facility] 05-30-2023 18:41-0500 Heart rate 76 /min Dr. Edgar Holbrook Work Phone: [facility] 05-30-2023 18:41-0500 Respiratory rate 20 /min Dr. Edgar Holbrook Work Phone: [facility] 05-30-2023 18:41-0500 SaO2% (BldA) [Mass fraction] 97 % Dr. Edgar Holbrook Work Phone: [facility] 05-30-2023 18:41-0500 Systolic blood pressure 135 mm[Hg] Dr. Edgar Holbrook Work Phone: [facility] 05-30-2023 17:40-0500 Body temperature 98.5 [degF] Dr. Edgar Holbrook Work Phone: [facility] 05-30-2023 12:12-0500 Body height 167.[address] Edgar Holbrook Work Phone: [facility] 05-30-2023 12:12-0500 Body mass index (BMI) [Ratio] 34.4 kg/m2 Dr. Edgar Holbrook Work Phone: [facility] 05-30-2023 12:12-0500 Body weight 96.[address] Edgar Holbrook Work Phone: [facility] 05-30-2023 11:44-0500 Body mass index (BMI) [Ratio] 33.4 kg/m2 Dr. Edgar Holbrook Work Phone: [facility] 05-30-2023 11:44-0500 Body temperature 96.7 [degF] Dr. Edgar Holbrook Work Phone: [facility] 05-30-2023 11:44-0500 Body weight 93.[address] Edgar Holbrook Work Phone: [facility] 05-30-2023 11:44-0500 Diastolic blood pressure 80 mm[Hg] Dr. Edgar Holbrook Work Phone: [facility] 05-30-2023 11:44-0500 Heart rate 61 /min Dr. Edgar Holbrook Work Phone: [facility] 05-30-2023 11:44-0500 Respiratory rate 18 /min Dr. Edgar Holbrook Work Phone: [facility] 05-30-2023 11:44-0500 SaO2% (BldA) [Mass fraction] 97 % Dr. Edgar Holbrook Work Phone: [facility] 05-30-2023 11:44-0500 Systolic blood pressure 132 mm[Hg] Dr. Edgar Holbrook Work Phone: [facility] 06-15-2022 23:30-0500 Body temperature 97.81 [degF] Obed Hull MD Work Phone: [facility] 06-15-2022 23:30-0500 Diastolic blood pressure 70 mm[Hg] Obed Hull MD Work Phone: [facility] 06-15-2022 23:30-0500 Heart rate 80 /min Obed Hull MD Work Phone: [facility] 06-15-2022 23:30-0500 Respiratory rate 18 /min Obed Hull MD Work Phone: [facility] 06-15-2022 23:30-0500 SaO2% (BldA) [Mass fraction] 99 % Obed Hull MD Work Phone: [facility] 06-15-2022 23:30-0500 Systolic blood pressure 134 mm[Hg] Obed Hull MD Work Phone: [facility] 06-15-2022 20:22-0500 Body height 165.1 cm Obed Hull MD Work Phone: [facility] 01-28-2022 09:57-0400 Diastolic blood pressure 81 mm[Hg] [facility] Work Phone: 01-28-2022 09:57-0400 Heart rate 56 /min [facility] Work Phone: 01-28-2022 09:57-0400 Respiratory rate 16 /min [facility] Work Phone: 01-28-2022 09:57-0400 SaO2% (BldA) [Mass fraction] 98 % [facility] Work Phone: 01-28-2022 09:57-0400 Systolic blood pressure 107 mm[Hg] [facility] Work Phone: 01-28-2022 07:57-0400 Body height 165.1 cm [facility] Work Phone: 01-28-2022 07:57-0400 Body mass index (BMI) [Ratio] 35.4 kg/m2 [facility] Work Phone: 01-28-2022 07:57-0400 Body temperature 97.8 [degF] [facility] Work Phone: 01-28-2022 07:57-0400 Body weight 96.4 kg [facility] Work Phone: 12-13-2021 09:49-0400 Body weight 95.25 kg Piper Rahman APRN.CNM Work Phone: [facility] 12-13-2021 09:49-0400 Diastolic blood pressure 72 mm[Hg] Piper Rahman APRN.CNM Work Phone: [facility] 12-13-2021 09:49-0400 Systolic blood pressure 118 mm[Hg] Piper Rahman [employer].CNM Work Phone: [facility] Encounters Encounter Date Encounter Type Care Provider Facility Start: 12-29-2024 End: 12-29-2024 Patient encounter procedure Ashely Pearl OD Work Phone: Optometry Comment on above: Hyperopia of both ey es (Primary Dx); Regular astigmatism of both eyes; Presbyopia - Both Eyes Start: 12-29-2024 End: 12-29-2024 ambulatory ASHELY PEARL Facility:[facility] Start: 12-27-2024 End: 12-27-2024 Emergency department patient visit Dr. Romeo Shankar MD Work Phone: -Emergency Department Work Phone: Start: 12-02-2024 Non-patient / Non-visit Dr. Salomón White MD -[facility] Start: 12-02-2024 End: 12-02-[address] Romeo [...] Start: 12-02-2024 End: 12-02-2024 ambulatory Romeo Shankar Facility:[facility] Start: 11-28-2024 End: 11-28-2024 Emergency department patient visit Dr. Romeo Shankar MD Work Phone: -Emergency Department Work Phone: Start: 10-01-2024 End: 12-01-2024 Follow-up encounter Zenobia Resendez MD Work Phone: OB/Gynecology Start: 09-26-2024 End: 09-26-2024 ambulatory ZENOBIA RESENDEZ Facility:[facility] Start: 09-23-2024 End: 09-23-2024 ambulatory ZENOBIA RESENDEZ Facility:[facility] Start: 08-18-2024 End: 08-18-[address] Romeo Shankar MD Work Phone: [facility] Work Phone: Start: 08-18-2024 End: 08-18-[address] Romeo Shankar MD -[facility] Work Phone: Start: 08-18-2024 End: 08-18-2024 ambulatory Romeo Shankar Facility:[facility] Start: 08-12-2024 End: 10-12-2024 Follow-up encounter Zenobia Resendez MD Work Phone: OB/Gynecology Start: 08-12-2024 End: 08-12-2024 Telephone encounter Zenobia Resendez MD Work Phone: OB/Gynecology Comment on above: Results Start: 08-11-2024 End: 08-11-2024 ambulatory ZENOBIA RESENDEZ Facility:[facility] Start: 08-11-2024 End: 08-11-2024 Patient encounter procedure Zenobia Resendez MD Work Phone: OB/Gynecology Comment on above: PMB (postmenopausal bleeding) (Primary Dx); Vaginal irritation; Encounter for screening for malignant neoplasm of cervix Start: 07-22-2024 End: 07-22-[address] Romeo Shankar MD Work Phone: [facility] Work Phone: Start: 07-22-2024 End: 07-22-[address] Romeo Shankar MD -Laboratory, Specimen Work Phone: Start: 07-22-2024 End: 07-22-[address] Romeo Shankar MD Work Phone: [facility] Work Phone: Start: 07-22-2024 End: 07-22-[address] Romeo Shankar MD -Radiology, [facility] Work Phone: Start: 07-22-2024 End: 07-22-2024 ambulatory Romeo Shankar Facility:[facility] Start: 06-05-2024 End: 06-05-[address] Romeo Shankar MD -Laboratory, Phy Office 3rd Flr Start: 06-05-2024 End: 06-05-2024 ambulatory [facility] Raad Facility:[facility] Start: 02-14-2024 End: 02-14-2024 ambulatory [facility] Start: 01-04-[address] [facility] Facility:[facility] Start: 08-09-2023 ambulatory [facility] Facility:[facility] Start: 07-24-2023 ambulatory ALYSSA SCHULTZ Facility:[facility] Start: 07-24-2023 ambulatory ALYSSA SCHULTZ Facility:[facility] Start: 07-24-2023 End: 07-24-2023 Subsequent hospital visit by physician Alyssa Schultz MD Work Phone: [facility] Comment on above: Arrived Start: 07-10-[address] Edgar Holbrook Work Phone: [facility]-Occupational Therapy Work Phone: Start: 07-05-2023 End: 07-05-[address] Edgar Holbrook Work Phone: [facility] Work Phone: Start: 07-05-2023 End: 07-05-[address] Edgar Holbrook Work Phone: [facility]-Laboratory, Phy Office 3rd Flr Start: 07-03-[address] Edgar Holbrook Work Phone: [facility]-Occupational Therapy Work Phone: Start: 06-29-2023 End: 06-29-[address] Edgar Holbrook Work Phone: [facility] Work Phone: Start: 06-29-2023 End: 06-29-[address] Edgar Holbrook Work Phone: [facility]-Outpatient Bone Densitometry Work Phone: Start: 06-04-2023 End: 06-04-[address] Edgar Holbrook Work Phone: [facility]-Laboratory, Phy Office 3rd Flr Start: 05-30-2023 End: 06-01-2023 Evaluation and management of inpatient SURGERY - NEURO CONSULT Facility:[facility] Start: 05-30-2023 End: 06-01-2023 Evaluation and management of inpatient Hussain Limon MD Work Phone: [id number] Comment on above: Brain bleed Start: 05-30-2023 End: 05-30-2023 Emergency department patient visit Dr. Edgar Holbrook Work Phone: [facility]-Emergency Department Work Phone: Start: 05-30-2023 End: 05-30-[address] Edgar Holbrook Work Phone: [facility] Work Phone: Start: 04-09-2023 End: 04-09-2023 Patient encounter procedure Ashely Pearl OD Work Phone: Optometry Comment on above: Hyperopia of both ey es (Primary Dx); Regular astigmatism of both eyes; Presbyopia - Both Eyes Start: 11-17-2022 ambulatory Ms. Kait Bell [facility] Facility:[id number] Start: 11-17-2022 Patient encounter procedure Edgar Holbrook Work Phone: [facility] Work Phone: Start: 10-20-2022 ambulatory Ms. Kait Oneil Facility:[id number] Start: 10-11-2022 ambulatory Ms. Kait Oneil Facility:[id number] Start: 10-11-2022 Patient encounter procedure Edgar Holbrook Work Phone: [facility] Work Phone: Start: 10-04-2022 ambulatory Ms. Kait Oneil Facility:[id number] Start: 10-04-2022 Patient encounter procedure Edgar Holbrook Work Phone: [facility] Work Phone: Start: 09-22-[address] Edgar Holbrook Facility:[id number] Start: 09-18-[address] Edgar Holbroko Facility:[id number] Start: 09-18-2022 Patient encounter procedure Edgar Holbrook Work Phone: [facility] Work Phone: Start: 09-11-[address] Edgar Holbrook Facility:[id number] Start: 09-11-2022 Patient encounter procedure Edgar Holbrook Work Phone: [facility] Work Phone: Start: 09-08-[address] Edgar Holbrook Facility:[id number] Start: 09-08-2022 Patient encounter procedure Edgar Holbrook Work Phone: [facility] Work Phone: Start: 09-04-[address] Edgar Holbrook Facility:[id number] Start: 09-04-2022 Patient encounter procedure Edgar Holbrook Work Phone: [facility] Work Phone: Start: 09-01-2022 Patient encounter procedure Edgar Holbrook Work Phone: [facility] Work Phone: Start: 09-01-[address] Edgar Holbrook Facility:[id number] Start: 08-28-[address] Edgar Holbrook Facility:[id number] Start: 08-25-2022 Patient encounter procedure Edgar Holbrook Work Phone: [facility] Work Phone: Start: 08-25-2022 ambulatory Ms. Kait Oneil Facility:[id number] Start: 06-15-2022 End: 06-15-2022 Emergency department patient visit Obed Hull MD Work Phone: [facility] Emergency Department Start: 04-27-2022 Telephone encounter Compa Long DO Work Phone: Mammogram Comment on above: Results Start: 04-05-2022 Patient encounter procedure Edgar Holbrook Work Phone: [facility] Work Phone: Start: 04-05-[address] Chay Ramírez Facility:[id number] Start: 04-05-2022 PTFUADULT4, Provider : Miracle Schmitz, Status: Pen, Time: 9:15 AM Edgar Holbrook Work Phone: [facility] Work Phone: Start: 04-03-2022 Patient encounter procedure Edgar Holbrook Work Phone: [facility] Work Phone: Start: 03-27-[address] Edgar Holbrook Facility:[id number] Start: 03-27-2022 Patient encounter procedure Edgar Holbrook Work Phone: [facility] Work Phone: Start: 03-24-2022 Patient encounter procedure Edgar Holbrook Work Phone: [facility] Work Phone: Start: 03-24-[address] Chay Ramírez Facility:[id number] Start: 03-20-[address] Chay Ramírez Facility:[id number] Start: 03-07-2022 End: 03-07-2022 Patient encounter procedure Breonna Juarez PA-C Work Phone: [facility] Comment on above: Chalazion right uppe r eyelid (Primary Dx) Start: 03-06-[address] Chay Ramírez Facility:[id number] Start: 03-06-2022 Patient encounter procedure Edgar Holbrook Work Phone: [facility] Work Phone: Start: 03-03-[address] Chay Ramírez Facility:[id number] Start: 03-03-2022 Patient encounter procedure Edgar Holbrook Work Phone: [facility] Work Phone: Start: 03-03-2022 PTFUADULT4, Provider : Miracle Schmitz, Status: Pen, Time: 10:45 AM Edgar Holbrook Work Phone: [facility] Work Phone: Start: 02-27-[address] Chay Ramírez Facility:[id number] Start: 02-27-2022 Patient encounter procedure Edgar Holbrook Work Phone: [facility] Work Phone: Start: 02-24-[address] Chay Ramírez Facility:[id number] Start: 02-24-2022 Patient encounter procedure Edgar Holbrook Work Phone: [facility] Work Phone: Start: 02-20-[address] Chay Ramírez Facility:[id number] Start: 02-20-2022 Patient encounter procedure Edgar Holbrook Work Phone: [facility] Work Phone: Start: 02-13-2022 Patient encounter procedure Edgar Holbrook Work Phone: [facility] Work Phone: Start: 02-13-[address] Chay Ramírez Facility:[id number] Start: 02-10-[address] Chay Ramírez Facility:[id number] Start: 02-10-2022 PTFUADULT4, Provider : Miracle Schmitz, Status: Pen, Time: 8:30 AM Edgar Holbrook Work Phone: [facility] Work Phone: Start: 02-08-[address] Edgar Holbrook Facility:[id number] Start: 02-08-2022 Patient encounter procedure Edgar Holbrook Work Phone: [facility] Work Phone: Start: 02-07-2022 End: 02-07-2022 Patient encounter procedure Rosaurasarabjit Miguelito [employer] Work Phone: [facility] Comment on above: Chalazion of right u pper eyelid (Primary Dx) Start: 02-02-[address] Edgar Holbrook Facility:[id number] Start: 02-02-2022 AQUATICFU4, Provider : Miracle Moreno, Status: Pen, Time: 9:15 AM Edgar Holbrook Work Phone: [facility] Work Phone: Start: 02-02-2022 Patient encounter procedure Edgar Holbrook Work Phone: [facility] Work Phone: Start: 01-31-[address] 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 Chay Ramírez Facility:[id number] Start: 01-12-2022 End: 01-12-2022 Patient encounter procedure Ashely Pearl OD Work Phone: Optometry Comment on above: [...] 07-08-2020 Orders Only Rupinder Houston Work Phone: [facility] Start: 07-25-2019 End: 07-26-2019 Patient encounter procedure EDGAR HOLBROOK [facility] Start: 07-25-2019 End: 07-25-2019 Subsequent hospital visit by physician Edgar Holbrook Work Phone: [facility] Comment on above: Palpitation Procedures Date Procedure Procedure Detail Performing Clinician Start: 12-27-2024 Urnls dip stick/tabl et reagent auto microscopy Dr. Romeo Shankar MD Work Phone: Start: 12-27-[address] Romeo Shankar MD Work Phone: Start: 12-27-2024 Computed tomography of abdomen and pelvis with intravenous contrast Dr. Romeo Shankar MD Work Phone: Start: 12-02-2024 Vitamin D, 25-hydrox y measurement [...] Performed By: #### X M #### [facility] (DEFAULT) [address] [place] [address] Start: 05-30-2023 Antibody screen Alyssa Schultz MD Work Phone: Start: 05-30-2023 ABORH TYPE RECONFIRMATION Jarrod Mistry MD Work Phone: Start: 05-30-2023 End: 05-30-2023 Blood typing serologic abo Julia A Kiz ziah DO Work Phone: Start: 05-30-2023 EXTRA MICRO Hernesto Corb in MD Work Phone: Start: 05-30-2023 URINALYSIS REFLEX [...] Work Phone: Start: 05-30-2023 LAVENDER TOP TUBE Mari At da A Susan DO Work Phone: Start: [...] 06-15-2022 Urinalysis, reagent strip without microscopy Obed uHll MD Work Phone: Start: 01-28-2022 Computed tomography of abdomen and pelvis with intravenous contrast Start: 11-03-2019 Mammography Piper P brooks BEE[employer] CATT[employer] GRAZIER.CNM Work Phone: Start: 10-08-2017 Colonoscopy Piper P brooks [employer]RA[employer]IER.CNM Work Phone: Start: 09-28-2012 Lipid 1996 panel - S lenny or Plasma Ashely Pearl OD Work Phone: Plan of Treatment Date Care Activity Detail Author Start: 07-10-2033 Urine microalbumin profile DTaP,Tdap,Td Vaccine (3 - Td or Tdap) [facility] Start: 05-30-2028 Lipid panel LIPID SCREENING [facility] Start: 04-23-2028 Tetanus vaccination [facility] Start: 04-23-2028 Urine microalbumin profile DTaP,Tdap,Td Vaccine (2 - Td or Tdap) [facility] Start: 06-01-2026 Diabetes Screening Diabetes Screenin g [facility] Start: 01-04-2026 End: 01-04-2026 Patient encounter procedure 01/04/2026 8:30 AM EDT Office Visit [facility] [address] [place] [address] Ashely Pearl, OD [address] [place] [address] [facility]ostics[facility] [address] [address] Return on e year for eye exam and CL exam; Has cataracts (but use vision for exam) Optometry Comment on above: Return on e year for eye exam and CL exam; Has cataracts (but use vision for exam) Start: 01-05-2025 Influenza vaccination Influenza Vacc ine (#1) [facility] Start: 12-27-2024 [facility] Start: 11-28-2024 Plain X-ray of tibia and fibula Tibia & Fibula 2 Views [facility] Start: 11-28-2024 XR Tibia and Fibula 2 Views [facility] Start: 09-26-2024 End: 09-26-2024 Patient encounter procedure 09/26/2024 8:20 AM EDT Office Visit OB/Gynecology [address] [place] [address] Zenobia Rodriguez MD [address] [place] [address] [facility] OB/Gynecology Comment on above: [facility] Start: 09-23-2024 End: 09-23-2024 ambulatory 09/23/2024 8:30 AM EDT Procedure OB/Gynecology [address] [place] [address] Remote, [employer] [address] [place] [address] PMB (postmenopausal bleeding) [N95.0] OB/Gynecology Comment on above: PMB (postmenopausal bleeding) [N95.0] Start: 08-11-2024 End: 08-11-2025 US Pelvis PELVIC US [facility] Anc Imaging Routine PMB (postmenopausal bleeding) Expected: 08/11/2024, Expires: 08/11/[address] [facility] Work Phone: Comment on above: Expected: 08/11/2024 , Expires: 08/11/2025 Start: 07-04-2024 Covid-19 Vaccine () Covid-19 Vaccine () [facility] Start: 06-01-2024 Thyroid stimulating hormone measurement [facility] Start: 05-07-2024 Advance Directive Discussion Advance Directive Discussion [facility] Start: 07-30-2023 End: 06-01-2024 MR Brain WO and W contrast IV MRI BRAIN WITH AND WITHOUT CONTRAST Imaging Routine Brain bleed Expected: 07/30/2023, Expires: 06/01/2024 [facility] Comment on above: Expected: 07/30/2023 , Expires: 06/01/2024 Start: 07-24-2023 End: 07-24-2023 Patient encounter procedure [facility] [place] Start: 01-05-2023 Covid-19 Vaccine ( season) Covid-19 Vaccine () [facility] Start: 01-05-2023 Influenza vaccination Influenza Vacc ine (#1) [facility] Start: 10-20-2022 FEI, Provider : Aleida Metzger, Status: Pen, Time: 8:00 AM FEI, Provider: Aleida Metzger, Status: Pen, Time: 8:00 AM [facility] Work Phone: Start: 10-11-2022 PTFUADULT4, Provider : Jane Aaron, Status: Pen, Time: 8:30 AM PTFUADULTYdui, Provider: Jane Aaron, Status: Pen, Time: 8:30 AM [facility] Work Phone: Start: 09-22-2022 FEI, Provider : Aleida Metzger, Status: Pen, Time: 8:15 AM FEI, Provider: Aleida Metzger, Status: Pen, Time: 8:15 AM [facility] Work [facility]: Start: 09-18-2022 PTFUADULT4, Provider : Miracle Schmitz, Status: Pen, Time: 1:15 PM PTFUADULT4, Provider: Miracle Schmitz, Status: Pen, Time: 1:15 PM [facility] Work [facility]: Start: 09-15-2022 PTFUADULT4, Provider : Miracle Schmitz, Status: Pen, Time: 1:15 PM PTFUADULT4, Provider: Miracle Schmitz, Status: Pen, Time: 1:15 PM [facility] Work Phone: Start: 09-11-2022 PTFUADULT4, Provider : Nuha De Paz, Status: Pen, Time: 1:15 PM PTFUADULT4, Provider: Nuha De Paz, Status: Pen, Time: 1:15 PM [facility] Work [facility]: Start: 09-08-2022 PTFUADULT4, Provider : Miracle Schmitz, Status: Pen, Time: 1:15 PM PTFUADULT4, Provider: Miracle Schmitz, Status: Pen, Time: 1:15 PM [facility] Work Phone: Start: 09-04-2022 PTFUADULT4, Provider : Miracle Schmitz, Status: Pen, Time: 1:15 PM PTFUADULT4, Provider: Miracle Schmitz, Status: Pen, Time: 1:15 PM [facility] Work Phone: Start: 09-01-2022 PTFUADULT4, Provider : Miracle Schmitz, Status: Pen, Time: 3:30 PM PTFUADULT4, Provider: Miracle Schmitz, Status: Pen, Time: 3:30 PM [facility] Work Phone: Start: 09-01-2022 PTFUADULT4, Provider : Miracle Schmitz, Status: Pen, Time: 10:45 AM PTFUADULT4, Provider: Miracle Schmitz, Status: Pen, Time: 10:45 AM [facility] Work [facility]: Start: 08-28-2022 PTFUADULT4, Provider : Miracle Schmitz, Status: Pen, Time: 2:00 PM PTFUADULT4, Provider: Miracle Schmitz, Status: Pen, Time: 2:00 PM [facility] Work Phone: Start: 05-07-2022 ADVANCE DIRECTIVE DISCUSSION ADVANCE DIRECTIVE DISCUSSION [facility] Start: 05-07-2022 DEPRESSION ASSESSMENT DEPRESSION ASS ESSMENT [facility] Start: 04-05-2022 PTFUADULT4, Provider : Miracle Schmitz, Status: Pen, Time: 9:15 AM PTFUADULT4, Provider: Miracle Schmitz, Status: Pen, Time: 9:15 AM [facility] Work Phone: Start: 04-03-2022 PTFUADULT4, Provider : Miracle Schmitz, Status: Pen, Time: 9:15 AM PTFUADULT4, Provider: Miracle Schmitz, Status: Pen, Time: 9:15 AM [facility] Work Phone: Start: 03-27-2022 PTFUADULT4, Provider : Miracle Schmitz, Status: Pen, Time: 9:15 AM PTFUADULT4, Provider: Miracle Schmitz, Status: Pen, Time: 9:15 AM [facility] Work Phone: Start: 03-24-2022 PTFUADULT4, Provider : Miracle Schmitz, Status: Pen, Time: 9:15 AM PTFUADULT4, Provider: Miracle Schmitz, Status: Pen, Time: 9:15 AM [facility] Work Phone: Start: 03-20-2022 PTRECHECKA, Provider : Aleida Metzger, Status: Pen, Time: 10:45 AM PTRECHECKA, Provider: Aleida Metzger, Status: Pen, Time: 10:45 AM [facility] Work Phone: Start: 03-17-2022 PTFUADULT4, Provider : Miracle Scmhitz, Status: Pen, Time: 9:15 AM PTFUADULT4, Provider: Miracle Schmitz, Status: Pen, Time: 9:15 AM [facility] Work Phone: Start: 03-13-2022 PTFUADULT4, Provider : Miracle Schmitz, Status: Pen, Time: 10:45 AM PTFUADULT4, Provider: Miracle Schmitz, Status: Pen, Time: 10:45 AM [facility] Work Phone: Start: 03-10-2022 PTFUADULT4, Provider : Miracle Schmitz, Status: Pen, Time: 8:30 AM PTFUADULT4, Provider: Miracle Schmitz, Status: Pen, Time: 8:30 AM [facility] Work Phone: Start: 03-06-2022 PTFUADULT4, Provider : Miracle Schmitz, Status: Pen, Time: 10:45 AM PTFUADULT4, Provider: Miracle Schmitz, Status: Pen, Time: 10:45 AM [facility] Work Phone: Start: 03-03-2022 PTFUADULT4, Provider : Miracle Schmitz, Status: Pen, Time: 10:45 AM PTFUADULT4, Provider: Miracle Schmitz, Status: Pen, Time: 10:45 AM [facility] Work Phone: Start: 02-27-2022 PTFUADULT4, Provider : Miracle Schmitz, Status: Pen, Time: 10:00 AM PTFUADULT4, Provider: Miracle Schmitz, Status: Pen, Time: 10:00 AM [facility] Work Phone: Start: 02-24-2022 PTFUADULT4, Provider : Miracle Schmitz, Status: Pen, Time: 8:30 AM PTFUADULT4, Provider: Miracle Schmitz, Status: Pen, Time: 8:30 AM [facility] Work Phone: Start: 02-20-2022 PTRECHECKA, Provider : Aleida Metzger, Status: Pen, Time: 10:15 AM PTRECHECKA, Provider: Aleida Metzger, Status: Pen, Time: 10:15 AM [facility] Work Phone: Start: 02-17-2022 PTFUADULT4, Provider : Jane Aaron, Status: Pen, Time: 2:00 PM PTFUADULT4, Provider: Jane Aaron, Status: Pen, Time: 2:00 PM [facility] Work Phone: Start: 02-17-2022 PTFUADULT4, Provider : Miracle Schmitz, Status: Pen, Time: 8:30 AM PTFUADULT4, Provider: Miracle Schmitz, Status: Pen, Time: 8:30 AM [facility] Work Phone: Start: 02-13-2022 PTFUADULT4, Provider : Miracle Schmitz, Status: Pen, Time: 1:15 PM PTFUADULT4, Provider: Miracle Schmitz, Status: Pen, Time: 1:15 PM [facility] Work Phone: Start: 02-10-2022 PTFUADULT4, Provider : Miracle Schmitz, Status: Pen, Time: 8:30 AM PTFUADULT4, Provider: Miracle Schmitz, Status: Pen, Time: 8:30 AM [facility] Work Phone: Start: 02-08-2022 AQUATICFU4, Provider : Mel Jimenez, Status: Pen, Time: 10:00 AM AQUATICFU4, Provider: Mel Jimenez, Status: Pen, Time: 10:00 AM [facility] Work Phone: Start: 02-02-2022 AQUATICFU4, Provider : Miracle Moreno, Status: Pen, Time: 9:15 AM AQUATICFU4, Provider: Miracle Moreno, Status: Pen, Time: 9:15 AM [facility] Work Phone: Start: 01-31-2022 AQUATICFU4, Provider : Miracle Moreno, Status: Pen, Time: 10:45 AM AQUATICFU4, Provider: Miracle Moreno, Status: Pen, Time: 10:45 AM [facility] Work Phone: Start: 01-05-2022 Influenza vaccination INFLUENZA (#1) [facility] Start: 07-01-2021 COVID-19 VACCINE (3 - Booster for Maikel series) COVID-19 VACCINE (3 - Booster for Maikel series) [facility] Start: 2021 ADVANCE DIRECTIVE DISCUSSION ADVANCE DIRECTIVE DISCUSSION [facility] Start: 2021 BONE DENSITY BONE DENSITY [facility] Start: 2021 Bone Density Screening Bone Density Screening [facility] Start: 2021 Pneumococcal vaccination [facility] Start: 2021 Pneumococcal Vaccine : 65+ (1 - PCV) Pneumococcal Vaccine: 65+ (1 - PCV) [facility] Start: 2021 PNEUMOCOCCAL: 65+ (1 - PCV) PNEUMOCOCCAL: 65+ (1 - PCV) [facility] Start: 2021 Screening for osteoporosis Bone Density Screening [facility] Start: 06-07-2021 Medicare Annual Well ness Visit Medicare Annual Wellness Visit [facility] Start: 05-07-2021 DEPRESSION ASSESSMENT DEPRESSION ASS ESSMENT [facility] Start: 04-25-2021 COVID-19 VACCINE (3 - Booster for Maikel series) COVID-19 VACCINE (3 - Booster for Maikel series) [facility] Start: 11-02-2020 Mammography [facility] Start: 11-02-2020 Screening for malign ant neoplasm of breast Mammogram Screening [facility] Start: 01-06-2020 Influenza vaccinatio n given Sequential Influenza Vaccine (#1) [facility] Start: 10-08-2018 Colonoscopy COLONOSCOPY [facility] Start: 10-08-2018 COLORECTAL CANCER SCREENING COLORECTAL CANCER SCREENING [facility] Start: 10-08-2018 Screening for malign ant neoplasm of colon [facility] Start: 09-28-2017 Lipid 1996 panel - S lenny or Plasma Lipid Screening [facility] Start: 09-28-2017 LIPID SCREEN LIPID SCREEN [facility] Start: 2016 RSV Vaccine (1 - 1-d ose 60+ series) RSV Vaccine (1 - 1-dose 60+ series) [facility] Start: 09-29-2015 DIABETES SCREEN DIABETES SCREEN [facility] Start: 09-29-2015 Diabetes Screening Diabetes Screenin g [facility] Start: 2006 Administration of he rpes zoster vaccine Zoster Vaccines (1 of 2) [facility] Start: 2006 Screening for malign ant neoplasm of colon [facility] Start: 2006 SHINGRIX VACCINE (1 of 2) SHINGRIX VACCINE (1 of 2) [facility] Start: 2001 COLOGUARD (FIT-DNA) COLOGUARD (FIT-D NA) [facility] Start: [address] COLONOGRAPHY [facility] Start: 2001 FECAL OCCULT BLOOD FECAL OCCULT BLOO D [facility] Start: 2001 Screening for malign ant neoplasm of colon [facility] Start: 2001 SIGMOIDOSCOPY SIGMOIDOSCOPY [facility] Start: 1996 [facility] Start: 1996 Screening for malign ant neoplasm of breast MAMMOGRAM SCREENING DISCUSSION [facility] Start: 1977 Screening for malign ant neoplasm of cervix CERVICAL CANCER SCREENING DISCUSSION [facility] Start: 1975 Urine microalbumin profile DTAP,TDAP,TD (1 - Tdap) [facility] Start: 1974 Anxiety Screening Anxiety Screening [facility] Start: 1974 Depression Screening Depression Scre ening [facility] Start: 1974 Hepatitis C antibody , confirmatory test Hepatitis C Screening [facility] Start: 1974 HEPATITIS C SCREENING HEPATITIS C SC [facility] Start: 1974 Hepatitis C screening Hepatitis C Sc [facility] Start: 1974 HIV SCREENING HIV SCREENING [facility] Start: 1972 COVID-19 Vaccine (1 of 2) COVID-19 Vaccine (1 of 2) [facility] Start: 1971 HIV screening HIV Screening [facility] Start: 1968 Adolescent depressio n screening assessment [facility] Start: 1959 History and physical examination, annual for health maintenance Wellness Visit [facility] Start: 1956 Hepatitis C antibody , confirmatory test Hepatitis C Screening [facility] Start: 1956 Hepatitis C screening HEPATITI S C VIRUS SCREENING [facility] Start: 1956 Screening for malign ant neoplasm of cervix Pap Smear [facility] Start: 1956 Screening for malign ant neoplasm of colon Colorectal Cancer Screening: Colonoscopy [facility] Start: 1956 Screening for osteoporosis DEXA SCAN DISCUSSION [facility] Start: 1956 Screening mammography Mammogram [facility] End: 07-25-2019 24 Hour ECG Holter monitor - 24 hour Cardiac Services Routine Palpitation Once for 1 Occurrences starting 07/25/2019 until 07/25/[address] [facility] Comment on above: Once for 1 Occurrenc es starting 07/25/2019 until 07/25/2019 BACTERIAL VAGINOSIS NAAT BACTERI AL VAGINOSIS NAAT Lab Routine Vaginal irritation 08/11/2024 3:43 PM EDT [facility] KATHLEEN/TRICHOMONAS NAAT KATHLEEN /TRICHOMONAS NAAT Lab Routine Vaginal irritation 08/11/2024 3:43 PM EDT [facility] Endometrial bx w/wo endocervix bx w/o dilat spx ENDOMETRIAL BIOPSY Procedures Routine Abnormal uterine bleeding (AUB) Ordered: 12/13/[address] [facility] Work Phone: Comment on above: Ordered: 12/13/2021 Endometrial bx w/wo endocervix bx w/o dilat spx ENDOMETRIAL BIOPSY Procedures Routine PMB (postmenopausal bleeding) Ordered: 08/11/2024 [facility] Comment on above: Ordered: 08/11/2024 End: 07-24-2023 MR Brain WO contrast [facility] Work Phone: Comment on above: 1 Occurrences starti ng 07/24/2023 until 07/24/2023 PAP FLUID CERVICAL SCREENING PAP FLUID CERVICAL SCREENING Lab Routine Encounter for screening for malignant neoplasm of cervix 12/13/2021 10:51 AM EDT [facility] Work Phone: PAP TEST PAP TEST Lab Rou gideon Encounter for screening for malignant neoplasm of cervix PMB (postmenopausal bleeding) 08/11/2024 3:43 PM EDT [facility] Patient Education [facility] Work Phone: Patient referral [facility] Work Phone: PELVIC US WHI PELVIC US WHI An c Imaging Routine Abnormal uterine bleeding (AUB) Ordered: 12/13/[address] [facility] Work Phone: Comment on above: Ordered: 12/13/2021 End: 05-30-2023 Standard ECG ECG ECG STAT One Time for 1 Occurrences starting 05/30/2023 until 05/30/2023 [facility] Comment on above: One Time for 1 Occur rences starting 05/30/2023 until 05/30/2023 SURGICAL PATHOLOGY SURGICAL PATH OLOGY Lab Routine Abnormal uterine bleeding (AUB) 12/13/2021 10:50 AM EDT [facility] Work Phone: Throat culture CULTURE THROAT Microbiology Routine 06/15/2022 9:06 PM [facility] Immunizations Immunization Date Immunization Notes Care Provider Marleny costello 01-04-2024 influenza virus vaccine, unspecified formulation Zenobia Resendez MD Work Phone: [facility] 02-06-2022 influenza virus vaccine, unspecified formulation Ashely Bloodleopoldotai OD Work Phone: [facility] Payers Date Payer Category Payer Self-pay [id number] 2021 [facility] ANTHEM DE DICARE SUPPLEMENT [id number] 2021 Medicare [id number] 1.13.159. [id number] 2021 Medicare [id number] 2021 Medicare [id number] 2017 Private Health Insurance [employer] [facility] Address: [address] [place] [address] [id number] [place] [address] [id number]. [id number] 2017 Unknown [id number]. 1.13.159. 2.7.3.806152.315 2015 Unknown [id number] 2015 Unknown [employer] UPERMED PPO xxxxxxx 2015-Present xxxxxxx [id number]. 2.7.3.779827.315 2015 Unknown [employer] S UPERMED PPO [id number] 2015-Present [id number] 1.2.840.157823.1.13.385. 2.7.3.201992.315 1956 Unknown [id number] 2.16.840.1.307064.3.579. 2.903 1956 Unknown [id number] 2.16.840.1.029878.3.579. 2.1068 1956 Unknown [id number] 2.16.840.1.947744.3.579. 2.1068 1956 Unknown [id number] 2.16.840.1.023548.3.579. 2.1068 1956 Unknown [id number] 2.16.840.1.745139.3.579. 2.1068 1956 Unknown [id number] 2.16.840.1.699027.3.579. 2.1068 1956 Unknown [id number] 2.16.840.1.051374.3.579. 2.1068 1956 Unknown [id number] 2.16.840.1.830728.3.579. 2.1068 1956 Unknown [id number] 2.16.840.1.520316.3.579. 2.1068 1956 Unknown [id number] 2.16.840.1.997082.3.579. 2.1068 1956 Unknown [id number] 2.16.840.1.241343.3.579. 2.1068 1956 Unknown [id number] 2.16.840.1.529599.3.579. 2.1068 1956 Unknown [id number] 2.16.840.1.980552.3.579. 2.1068 1956 Unknown [id number] 2.16.840.1.191843.3.579. 2.1068 1956 Unknown [id number] 2.16.840.1.761563.3.579. 2.1068 1956 Unknown [id number] 2.16.840.1.804126.3.579. 2.1068 1956 Unknown [id number] 2.16.840.1.083764.3.579. 2.1068 1956 Unknown [id number] 2.16.840.1.885878.3.579. 2.1068 1956 Unknown [id number] 2.16.840.1.250952.3.579. 2.1068 1956 Unknown [id number] 2.16.840.1.327291.3.579. 2.1068 1956 Unknown [id number] 2.16.840.1.207578.3.579. 2.1068 1956 Unknown [id number] 2.16.840.1.995609.3.579. 2.1068 1956 Unknown [id number] 2.16.840.1.923533.3.579. 2.1068 1956 Unknown [id number] 2.16.840.1.569140.3.579. 2.1068 1956 Unknown [id number] 2.16.840.1.148516.3.579. 2.1068 1956 Unknown [id number] 2.16.840.1.800109.3.579. 2.1068 1956 Unknown [id number] 2.16.840.1.771307.3.579. 2.1068 1956 Unknown [id number] 2.16.840.1.269581.3.579. 2.1069 1956 Unknown [id number] 2.16.840.1.706219.3.579. 2.594 1956 Unknown [id number] 2.16.840.1.022574.3.579. 2.594 1956 Unknown [id number] 2.16.840.1.656506.3.579. 2.594 1956 Unknown [id number] 2.16.840.1.758581.3.579. 2.594 1956 Unknown [id number] 2.16.840.1.364221.3.579. 2.651 Unknown [id number] 2.16.840.1.116858.3.579. 2.462 Unknown [id number] 2.840.1.442494.3.579. 2.462 Unknown [id number] 2.16840.1.950777.3.579. 2.462 Unknown [id number] 2.16.840.1.952867.3.579. 2.462 Unknown [id number] 2.16.840.1.897270.3.579. 2.462 Unknown [id number] 2.16840.1.687078.3.579. 2.462 Unknown [id number] 2.840.1.240303.3.579. 2.462 Unknown [id number] 2.16840.1.156540.3.579. 2.462 Unknown [id number] 2.840.1.552328.3.579. 2.462 Unknown [id number] 2.840.1.770703.3.579. 2.462 Social History Date Type Detail Facility Start: 10-22-2015 End: 12-13-2021 Tobacco smoking status UTIS Never smoker [facility] Start: 10-22-2015 End: 05-14-2023 Alcohol intake Current non-drinker of alcohol (finding) [facility] Start: 1955 Sex Assigned At [facility] Start: 12-13-2021 End: 06-15-2022 Tobacco use and exposure Smokeless tobacco non-user [facility] Start: 1955 Sex Assigned At Female C [facility] Start: 12-03-2021 End: 06-15-2022 Exposure to SARS-CoV-2 (event) Not sure [facility] Start: 01-28-2022 End: 06-22-2023 Tobacco smoking status NHIS Unknown if ever smoked [facility] Start: 05-11-2020 Non-smoker [facility] Start: 06-15-2022 End: 12-29-2024 Alcohol intake Lifetime non-drinker (finding) [facility] Start: 04-09-2023 End: 12-29-2024 History of Social function [facility] Start: 04-09-2023 End: 12-29-2024 Tobacco use panel [facility] Start: 04-07-2012 National Score (1-10 0), lower number is lower risk 47 [facility] Start: 06-17-2019 Gender identity Identifies as female gender (finding) [facility] Start: 01-24-2022 Sexual orientation Choose not to dis close [facility] Start: 05-31-2023 End: 07-24-2023 Alcoholic beverage intake Current drinker [facility] Start: 07-31-2024 End: 08-22-2024 Sex Female (finding) [facility] How often to you hav e a drink containing alcohol? Never [facility] Medical Equipment Procedure Code Equipment Code [...] 05-12-2020 Functional Status Date Assessment Result Facility 12-29-2024 Total score [AUDIT-C] 0 12/30/19 7:37 AM EDT Vicente Stewart COA [facility] 11-17-2014 Are you deaf, or do you have serious difficulty hearing No 11/17/2014 2:21 PM EDT Lynn Mendes LPN No [facility] 11-17-2014 Are you blind, or do you have serious difficulty seeing, even when wearing glasses No 11/17/2014 2:21 PM Lynn Ventura LPN No [facility] 11-17-2014 Do you have serious difficulty walking or climbing stairs No 11/17/2014 2:21 PM Lynn Ventura LPN No [facility] 11-17-2014 Do you have difficul ty dressing or bathing No 11/17/2014 2:21 PM Lynn Ventura LPN No [facility] 11-17-2014 Because of a physica l, mental, or emotional condition, do you have difficulty doing errands alone such as visiting a physician's office or shopping No 11/17/2014 2:21 PM Lynn Ventura LPN No [facility] Mental Status Date Assessment Result Facility 05-30-2023 Cognitive function Voice/Name [facility] Work Phone: 11-17-2014 Because of a physica l, mental, or emotional condition, do you have serious difficulty concentrating, remembering, or making decisions No 11/17/2014 2:21 PM EDT Lynn Mendes LPN No [facility] Clinical Notes 12-13-2021 to 12-29-2024 Patient InstructionsCoAshely nielsen, OD - 12/29/2024 8:14 AM EDTTelephone Encounter - Linda Irvin RN - 08/12/2024 9:39 AM EDTZenobia Rodriguez MD - 08/11/2024 3:07 PM EDT Note Date & Type Note Facility 12-29-2024 Instructions Ashely Pearl, OD - 12/29/2024 8:15 AM EDT ASSESSMENT/PLAN: 1. Hyperopia of both eyes - ICD9: 367.0, ICD10: H52.03 (primary diagnosis) 2. 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 Presbyopia - Both Eyes - ICD9: 367.4, ICD10: H52.4 Continue to wear her glasses with the update. Will order trial lenses to try before ordering updated back. Recommended yearly exams. documented in this encounter [facility] 12-29-2024 Note HNO ID: [id number] Author: ASHELY PEARL OD Service: ? Author Type: Franchise Sales Manager Type: Progress Notes Filed: 12/29/2024 08:16 Note Text: ASSESSMENT/PLAN: 1. Hyperopia of both eyes - ICD9: 367.0, ICD10: H52.03 (primary diagnosis) 2. 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 Presbyopia - Both Eyes - ICD9: 367.4, ICD10: H52.4 Continue to wear her glasses with the update. Will order trial lenses to try before ordering updated back. Recommended yearly exams. Ashely Pearl, MAYITO I have confirmed and edited as necessary the relevant ophthalmic history, ROS, and the neuro exam findings as obtained by others. [facility] 12-29-2024 History of Presen t illness Narrative ASSESSMENT/PLAN: 1. Hyperopia of both eyes - ICD9: 367.0, ICD10: H52.03 (primary diagnosis) 2. 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 Presbyopia - Both Eyes - ICD9: 367.4, ICD10: H52.4 Continue to wear her glasses with the update. Will order trial lenses to try before ordering updated back. Recommended yearly exams. Ashely Pearl, OD I have confirmed and edited as necessary the relevant ophthalmic history, ROS, and the neuro exam findings as obtained by others. documented in this encounter [facility] 12-27-2024 Discharge summary [facility] 12-27-2024 Radiology Diagnostic study note [facility] Imaging Services [address] [place] [address] [id number] Abdomen/Pelvis W IV Cont ONLY MR#: [id number] Acct: [id number] Name: KAIA DE PAZ Rep #: [id number] : 1955 F 69 From: Dg Londono MD PCP: Dr. Romeo Shankar MD Status: REG E R Study:Abdomen/Pelvis W IV Cont ONLY Date of E xam: 12/27/24 Exam# [id number] Ordering Dr: Shannon Vasques MD PROCEDURE: ABDOMEN/PELVIS W IV CONT ONLY 12/27/2024 REASON FOR EXAM: RIGHT SIDED ABD PAIN TECHNIQUE: ABDOMEN/PELVIS W IV CONT ONLY Coronal and Sagittal reconstruction series were provided. CONTRAST: Isovue 370 VOLUME: 100 mL One or more dose reduction techniques were used (e.g., Automated exposure control, adjustment of the mA and/or kV according to patient size, use of iterative reconstruction technique. RADIATION DOSE SUMMARY: CTDlvol: 23.79 mGy DLP: 1262.27 mGycm COMPARISON: CT abdomen and pelvis 07/22/2024. FINDINGS: Lung bases: Clear. Liver: Unremarkable. Gallbladder: Nondistended. No biliary dilation. Spleen: Unremarkable. Pancreas: Unremarkable. Adrenals: Unremarkable. Kidneys: No hydronephrosis. No nephrolithiasis. Bladder: Unremarkable. Reproductive Organs: Unremarkable. Bowel: Sigmoid colon diverticulosis with no evidence of acute diverticulitis. Appendix: No evidence of acute appendicitis. Lymph nodes: No lymphadenopathy. Vasculature: No aneurysm. Mild atherosclerotic calcifications. Peritoneum / Retroperitoneum: No free air or free fluid. Bones: No acute bony abnormalities. CT/Abdomen/Pelvis W IV Cont ONLY IMPRESSION: No acute abdominopelvic abnormalities. Reading Location: [facility] CC: Dr. Cm Vasques MD; Dr. Romeo Shankar MD ~ Communications Administrator: Signed [facility] 11-28-2024 Radiology Diagnostic study note [facility] Imaging Services [address] [place] [id number] Knee 4 or More Views MR#: [id number] Acct: [id number] Name: KAIA DE PAZ Rep #: [id number] : 1955 F 69 From: Simi Thomas MD PCP: Dr. Romeo Shankar MD Status: PRE E R Study:Knee 4 or More Views Date of Exam: 11/28/24 Exam# [id number] Ordering Dr: Oswald Restrepo. PROCEDURE: KNEE 4 [...] the sequelae of old injury. Reading Location: [facility] CC: Dr. Romeo Shankar MD; ED PHYSICIAN PROVIDER ~ Communications Administrator: Signed [facility] 09-26-2024 Note HNO ID: [id number] Author: ZENOBIA RODRIGUEZ MD Service: ? Author Type: Physician Type: Progress Notes Filed: 09/26/2024 08:38 Note Text: Medical Oncologist offered: Patient declines. Kaia is a 69 [...] results in 1-2 weeks. Zenobia Galdamez MD [facility] 09-23-2024 Note HNO ID: [id number] Author: SYLVIE WISE MD Service: ? Author Type: Physician Type: Progress Notes Filed: 09/23/2024 21:40 Note Text: The patient presents for requested ultrasound. Full report available in the Imaging tab in Epic. Sylvie Wise MD [facility] 08-12-2024 Telephone encounter Note Patient notified. Linda Irvin RN [facility] 08-12-2024 Miscellaneous Notes Patient notified. Linda Irvin RN Left message for patient to call office. Helen Milner RN Images from the original note were not included. Zenobia Rodriguez MD to [facility] Ob-Space Planner Phil Campbell 08/12/24 9:00 AM Result Note Please notify patient that her culture was positive for BV- I will treat with flagyl. She should still get pelvic ultrasound completed. KATHLEEN/TRICHOMONAS NAAT; BACTERIAL VAGINOSIS NAAT documented in this encounter [facility] 08-12-2024 Telephone encounter Note Left message for patient to call office. Helen Milner RN [facility] 08-12-2024 Telephone encounter Note Images from the original note were not included. Zenobia Rodriguez MD to [facility] Ob-Space Planner Pool 08/12/24 9:00 AM Result Note Please notify patient that her culture was positive for BV- I will treat with flagyl. She should still get pelvic ultrasound completed. KATHLEEN/TRICHOMONAS NAAT; BACTERIAL VAGINOSIS NAAT [facility] 08-11-2024 Note HNO ID: [id number] Author: ZENOBIA RODRIGUEZ MD Service: ? Author Type: Physician Type: Progress Notes Filed: 08/11/2024 15:51 Note Text: Medical Oncologist offered: Patient declines. Kaia De Paz is a 69 year old female who [...] Living2 SAB0 IAB0 Ectopic0 Multiple0 Live Births2 Space Planner History LMP: 05/07/2005, Postmenopausal Age at Menarche: Age at First : Age at Menopause: Space Planner History Comments: Sexual Activity: Not Asked; Male; [...] discussed with the Patient or Patient's Authorized Associate Professor Of Physics. As applicable, any other physician, advance practice provider, medical student, or other health professional student that will be observing or involved in the sensitive examination for educational or training purposes was discussed with the Patient or Authorized Associate Professor Of Physics. The Patient or Authorized Associate Professor Of Physics has agreed to proceed with the sensitive [...] external genitalia normal, normal Bartholin's glands, urethra, [place]'s glands, no vulvar lesions, no cervical lesions, [...] Level: 4 - Moderate Zenobia Galdamez MD [facility] 08-11-2024 History of Present illness Narrative Medical Oncologist offered: Patient declines. Kaia De Paz is a 69 year old female who [...] Living2 SAB0 IAB0 Ectopic0 Multiple0 Live Births2 Space Planner History LMP: 05/07/2005, Postmenopausal Age at Menarche: Age at First : Age at Menopause: Space Planner History Comments: Sexual Activity: Not Asked; Male; [...] discussed with the Patient or Patient's Authorized Associate Professor Of Physics. As applicable, any other physician, advance practice provider, medical student, or other health professional student that will be observing or involved in the sensitive examination for educational or training purposes was discussed with the Patient or Authorized Associate Professor Of Physics. The Patient or Authorized Associate Professor Of Physics has agreed to proceed with the sensitive [...] external genitalia normal, normal Bartholin's glands, urethra, [place]'s glands, no vulvar lesions, no cervical lesions, [...] Zenobia Galdamez MD documented in this encounter [facility] 07-22-2024 Radiology Diagnostic study note [facility] Imaging Services [address] [place] [address] Abdomen/Pelvis without Cont MR#: [id number] Acct: [id number] Name: KAIA DE PAZ Rep #: [id number] : 1955 F 69 From: Johana Weems MD PCP: Dr. Romeo Shankar MD Status: REG Kallie JANG Study:Abdomen/Pelvis without Cont Date of Exa m: 07/22/24 Exam# [id number] Ordering Dr: Romeo Shankar MD PROCEDURE: ABDOMEN/PELVIS [...] 2. Additional description as above. Reading Location: [facility] CC: Dr. Romeo Shankar MD ~ Communications Administrator: Signed [facility] 07-22-2024 Radiology Diagnostic study note [facility] Imaging Services [address] [place], [place] [address] L/S Spine Min 4 Views MR#: [id number] Acct: [id number] Name: KAIA DE PAZ Rep #: [id number] : 1955 F 69 From: Johana Alcantara MD PCP: Dr. Romeo Shankar MD Status: REG C LI Study:L/S Spine Min 4 Views Date of Exam: 07/22/24 Exam# [id number] Ordering Dr: Romeo Shankar MD EXAM: XR [...] IMPRESSION: Degenerative changes as above. Reading [facility] CC: Dr. Romeo Shankar MD ~ Communications Administrator: Signed [facility] 06-01-2023 Emergency department Note ED Attending Has [...] 95% ED Course as of 05/31/23 0436 SunMay 30, [id number] Admit to neurovasc PCU. Stroke vs brain mass. Normal Exam. Nayely May 31, [id number] Called to room for [...] 37 yo F pt transferred to from [place] [facility] as a Level A hemorrhagic Stroke Alert. Pt has been feeling fuzzy for 2-3 weeks and family finally convinced pt to come to ER. CTH at OSH showed subacute bleed. Pt arrives to CT scanner w/ ER and neurovasc teams at bedside. A&Ox4, VSS Department of Pharmacy Emergency Department Stroke Alert Response Note Patient Name: Kaia De Paz Room/Bed: E036/E036 A Pharmacist responded to the [...] further questions. Name: Kimberly Matias RPH Phone: [phone] Date/Time: 05/30/2023 9:34 PM DEPARTMENT OF EMERGENCY MEDICINE CHIEF COMPLAINT No chief complaint on file. HPI Kaia De Paz is a 67 y.o. female with history [...] COURSE & MEDICAL DECISION MAKING Assessment: Kaia De Paz is a 67 y.o. female who presents [...] occasionally occur. Julia Davis DO Resident 05/30/23 0834 ED SW responded to hemorrhagic stroke. Pt is a transfer from [facility] Physicians medic #[id number], who reports spouse is aware of transfer, but will not be coming to [facility] ED tonight. Pt is alert and following commands appropriately at this time. Spouse's number for medical updates: Enmanuel De Paz Spouse [phone] Pt also has her adult child listed: Mariely Tello Child [phone] SW to remain available for any additional needs. KUMAR Fernandez [phone] Addend: Son at bedside. Son denies any needs at this time. KUMAR Fernandez [phone] Bed: E036 Expected date: Expected time: Means of arrival: Comments: sudha documented in this encounter [facility] 06-01-2023 Physician Emergency department Note ED [...] our care. Hussain Limon MD 06/06/23 1106 [facility] Work Phone: 06-01-2023 Nurse Note Stroke patient education has been reviewed and all required elements are complete and personalized. Care plan documentation complete and patient adequate for discharge. Next dose medication details have been added to the AVS as appropriate. [facility] 06-01-2023 Miscellaneous Notes Stroke patient education [...] navigate home and community. 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 documented in this encounter [facility] 06-01-2023 Plan of care note Problem: PT [...] safely navigate home and community. Outcome: [facility] Hospital course Narrative Images from the original note were not included. Discharge Summary Name: Kaia De Paz Age: 67 y.o. Birthday: 1955 Admit Date: 05/30/2023 Discharge Date: 06/01/2023 Admission Information Admitting Physician: Alyssa Schultz MD Discharge Information Discharge Physician: Alyssa Schultz MD Problem List Active Hospital Problems Diagnosis Brain bleed Resolved Hospital Problems No resolved problems to display. DISCHARGE LETTER: Dear Doctors, I recently had the opportunity to care for Kaia De Paz during her recent hospital stay at [facility]. Kaia De Paz is a 67 y.o. female with a [...] score of 0 and was evaluated by PT/OT/CHEESE FACTORY WORKER who recommended ambulatory physical therapy, occupational therapy, [...] (Calculated) 0 filed on 05/30/2023 2226 Modified Delfina Scale Score Premorbid (MRSS) 0 [...] Mild regurgitation. No stenosis. No evidence of qtjjv-cp-utmd shunt with agitated saline contrast (NEGATIVE bubble study). Should you require further information or copies of results or reports please contact [employer] Information Management @ [phone] LABS AT TIME OF DISCHARGE: Lab Results [...] once daily. PATIENT'S MEDICAL HOME AT DISCHARGE: Paulo Shankar [address] [facility] [address] / [facility] [phone] DISCHARGE ORDERS AND MEDICATIONS: No orders of [...] take each medicine. Include all prescription and zuzp-lhy-rjsmotu medicines, vitamins, and supplements. Keep this list [...] plan your refills so that you can cotton picker all your medicines at the same time. This can mean fewer trips to the drugstore. If we have prescribed you a new medication during your stay, please contact with your primary physician for refills FOLLOW-UP: Paulo Shankar MD [address] [facility] [address] [facility] [phone] Go to An appoitnment has been scheduled [...] Alyssa Schultz MD documented in this encounter [facility] 06-01-2023 Hospital Discharge instructions Ramonita Fragoso [...] may call your neurovascular doctors office at [phone], if you have questions between 8:30 am and 4:30 pm. - For off hours or the weekend you may call the office or the hospital wood carving machine operator at and ask for the stroke resident shift production associate to be paged. - If you have any questions or needs, please call Ramonita UMAÑA RN, stroke freelance programmer/app developer at [phone] Sun-Sun from 11-06. ? Any questions concerning your discharge instructions please call Case Management Office [phone] Patient Stroke Resources: [facility] Stroke Support [facility] Stroke Support Group is for stroke survivors, friends, and family members. Meets on the Sunday of each month from 6:30pm-7:30pm at [facility] ([address]; [place] [address]). Contact Diana Dawkins, at [phone] or [email or web address]. If you are outside of the [place] area, contact The [place] [employer]roke [employer] at www.strokeassociation.org or 0-865-6-stroke, or for supports groups in your area. You may also refer to the Stroke Education booklet you received as part of your stroke education while you were a patient for additional resources. Additional Contacts: Evening and Weekend Contacts If you have questions or concerns during evening, weekend, or holiday hours, please call: -[facility] wood carving machine operator at [phone]. -[facility] wood carving machine operator at [phone] Ask the wood carving machine operator to page the on-call doctor for [...] Other reference numbers: [facility] Intake Office at 492-638-6241; [employer] at 690-770-2676; or Suicide Prevention Hotline at 527-214-9183. *Helpful phone numbers: Free Crisis Hotline: 9-240-403-TALK ( ) Suicide Hotline: 823.149.2757 Seniors Suicide Hotline: 930.731.8409 [facility] Youth: 365.526.2893 [facility]: 514.440.6018 (free counseling) [employer] Access Hotline: 119-374-PACN (123-576-5431) 24-hour crisis text hotline: Text the word 4hope to 850-630 for crisis support. Texting this number is [...] you may qualify for Medicaid/public assistance: The [facility] Department of Job and Family Services can now process [place] (TANF), food (SNAP) and Medicaid Applications over the phone. Please call 6-748-965ReferMeIOWA (9640) and apply over the phone or apply online at www.benefits.[place].gov. Sunday-Sunday 8am-12pm noon. Medication Assistance Programs [employer] members can buy 100+ common prescriptions for FREE, $3 or $6. Annual membership is $36 for individuals and $72 for families (up to 6 people, including pets). Sign up online or enroll at your nearest pharmacy! -Monitor, web site can provide a significant number [...] take each medicine. Include all prescription and sgtc-sni-bavlzwa medicines, vitamins, and supplements. Keep this list [...] plan your refills so that you can cotton picker all your medicines at the same [...] -Fever or chills [facility] History of Present illness Narrative [...] math. 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 She has had headache for the last 4 days. At the [facility] [place] [facility] CT brain showed a right [...] Name and Contact information: Enmanuel Vivar - [phone] Adult Child(braulio), List All Adult Children: Yes Name and Contact information: Mariely Tello - [phone] Would you like to add additional adult children?: Yes Name and Contact information: Artur De Paz [phone] Outpatient Providers Does patient have a primary [...] Is the patient from a facility or retirement?: No Patient lives with: Spouse or Partner [...] Is the patient on Anticoagulation? : No [facility] [place] [address] [address] [facility] [address] [facility] [address] Crew Chief Does the patient or compliance representative express financial concerns? : No Employed?: Retired Coping/Stress Concerns about patient s coping and stress?: No Concerns about patient s caregiver s coping and stress?: No Values and Beliefs Cultural or nondenominational practices that may impact discharge planning and/or [...] provided to patient at discharge. CAYDEN Villalpando, INVESTIGATOR CASH SHORTAGE Rig Site Engineer Available by Secure Chat Acute Care Speech-Language Pathology Note Received consult for swallow evaluation. However, pt passed [place] Swallow Screening by nursing. Swallow eval by CHEESE FACTORY WORKER will not be completed at this time unless this service notified of change in status or re-consult for swallow eval placed. CHEESE FACTORY WORKER to proceed with speech/language/cognitive evaluation per order. Thank you. No charge Melony Jurado [facility]-CHEESE FACTORY WORKER Speech-Language Pathologist License Number [id number] Pager: Available on Secure Chat Acute Care CHEESE FACTORY WORKER Speech/Language/Cognitive Evaluation Best mode of Communication: spoken language (regular speech) Communication Strategies: - Decrease distractions - Write down important information for improved recall Discharge Recommendations: Based on the below outcome measures/assessment score(s) and CHEESE FACTORY WORKER clinical judgment, discharge destination recommendation is: Home with Outpatient Rehab Services addressing cognitive-communication deficits. Barriers to discharge home: Cognitive impairments that impact safety and independence Supporting factors for discharge setting: Impaired cognitive skills limiting safety/insight, Impaired cognitive skills limiting functional problem solving in immediate environment, Impaired cognitive skills limiting independence Acute CHEESE FACTORY WORKER Outcomes Tracking Communicate basic wants and needs?: yes Demo insight/appreciation of deficits?: yes Complete basic problem solving?: yes Current therapy frequency recommendation in acute: Speech/Lang/Cog Therapy Frequency: 2 times a week Clinical Impression: Kaia De Paz presents with mild level cognitive-communication deficits, s/p subacute right frontal intracerebral hemorrhage of unclear etiology. Deficits characterized by impaired immediate, working, and delayed memory, problem solving, reasoning, and executive-function skills. Pt also c/o anomia during conversation, which was not observed this date - though CHEESE FACTORY WORKER to monitor. These deficits result in functional limitations in ability to interact with her home environment independently and safely to OF. Skilled speech therapy services warranted during admission and at discharge. Patient Instruction/Education this session: Role of CHEESE FACTORY WORKER, recommendation for treatment during admission and upon [...] Score (Auto-calculated): 0 Patient History Comments: Kaia De Paz is a 67 y.o. female who presents with subacute right frontal intracerebral hemorrhage, post-bleed day 2 weeks, of unclear etiology, but occult malignancy work-up negative thus far. Prior CHEESE FACTORY WORKER History: None per chart review and pt interview. Prior Level of Function: Previous Level of Function Prior level ADL Overview: Independent with all ADLs Residence: House Lives With: spouse, child(braulio), other (see comments) (3 grandchildren 4, 7, 9 years old) IADL History IADLs: independent Primary Language: Samoan Home Management Skills: independent Medication Management: independent [...] which was not noted in today's assessment. CHEESE FACTORY WORKER to monitor) Task: Imitates Gestures Intact Automatic [...] 0 Asthenia (A): 0 Strain (S): 0 CHEESE FACTORY WORKER Outcomes: CHEESE FACTORY WORKER Outcomes / Standardized Measures Score The Orientation [...] Reversed: one error 30 Seconds: 25-35 seconds Cllz-Obrs-Bwct: three correct repetitions Go / No-Go: correct response on each trial Address Recall: partial spontaneous recall Total Score: 24 Acute CHEESE FACTORY WORKER Goals Plan of Care by Melony Jurado CHEESE FACTORY WORKER at 06/01/2023 10:57 AM Version 1 of 1 Problem: CHEESE FACTORY WORKER - Cognition Goal: Memory: Strategy Training - [...] to improve functional independence Outcome: Ongoing Problem: CHEESE FACTORY WORKER - Language Goal: Word Retrieval Strategies for Conversation - Patient will state and/or demonstrate understanding of trained strategies targeting anomia with no more than set-up cues to use strategies during functional conversation to reduce communication breakdowns Outcome: Ongoing CHEESE FACTORY WORKER Co-Eval/Treatment Information Co-evaluation/co-treatment performed?: No simultaneous skilled [...] of session: none altered Needs in reach. CHEESE FACTORY WORKER Evaluation and Treatment Time Speech Eval - Sound Production W/Lang Comp and Exp 31653: 39 Upon discontinuation of Acute Care Speech [...] on. IADL History IADLs: independent Primary Language: Samoan Home Management Skills: independent Medication Management: independent [...] Don/doff L sock LE Dressing Skilled Rationale (Verbal/Tactile/Visual/Demonstratio n): Technique of activity, Adaptive equipment training LE Dressing Intervention/Details: Pt provided with hosiery mater and sock aide Toilet Assistance: Stand by [...] female) Mobility Assessment: Supine to Sit Mobility Brooten Level: Supine->Sit: not tested ([employer] hair) Transfer Assessment: Sit to Stand Transfer Brooten Level: Sit->Stand: stand-by assist Physical Assist: Sit->Stand: (1 person) Assistive Device: Sit->Stand: gait belt, armed chair Skilled Rationale: Positioning, Hand placement, Verbal cues Skilled Intervention/Details: Sit->Stand: Increased time with transition Stand to Sit Transfer Brooten Level: Stand->Sit: stand-by assist Physical Assist: Stand->Sit: (1 person) Assistive Device: Stand->Sit: gait belt, armed chair Skilled Rationale: Hand placement Functional Mobility: Functional Mobility Brooten Level: Functional Mobility/Gait: stand-by assist Physical Assist: [...] currently uses wheelchair?: No Outcome Score(s): CURRENT [facility] Daily Activity Inpatient Short Form Putting on/Taking Off Lower Body Clothin - A Little Assistance Bathin - A Little Assistance Toiletin - A Little Assistance Putting on/Taking Off Upper Body Clothin - No Assistance Groomin - No Assistance Eatin - No Assistance CURRENT [facility] Activity Raw Score: 21 CURRENT [facility] Activity Functional Limitation/Modifier: 32.79% Currently Impaired in [...] of adaptive equipment with ADL's (OT provided General Passenger Agent/long shoe horn and sock aide) 3. 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 Pt reports recent visits to PT [...] and found herself off the side of [address]. Pt agrees that /daughter should and [...] balance. Transfer Assessment: Sit to Stand Transfer Brooten Level: Sit->Stand: stand-by assist Assistive Device: Sit->Stand: gait belt Skilled Rationale: Verbal cues, Hand placement Skilled Intervention/Details: Sit->Stand: SBA for sit to stand. Verbal cues provided for hand placement. Stand to Sit Transfer Brooten Level: Stand->Sit: stand-by assist Assistive Device: Stand->Sit: gait belt Skilled Rationale: Verbal cues, Controlled descent for sitting Skilled Intervention/Details: Stand->Sit: SBA for stand to sit. verbal cues for controlled descent. Gait/Functional Mobility: Gait Assessment Brooten Level: Gait: stand-by assist Assistive Device: Gait: gait belt Ambulation Distance (Feet): 200 Gait Deviations Identified: left (decreased LLE foot clearance) Gait Skilled Rationale: verbal, increase foot clearance Skilled Intervention/Details - Gait: verbal cues provided for increase in LLE foot clearance. pt needed assist for identification of slight LLE foot drag. Initial improvement noted with cues. No LOB throughout ambulation. Stairs: Stairs Assessment Brooten Level: Stair Negotiation: contact guard assist Assistive Device: Stair Negotiation: gait belt, right rail (ascending) Number of stairs: 10 Stairs Skilled Rationale: verbal, nonreciprocal pattern Skilled Intervention/Details - Stairs: pt educated on nonreciprocal pattern for pain management and safety. Outcome Score(s): CURRENT [facility] Basic Mobility Inpatient Short Form Turning [...] a railin - A Little Assistance CURRENT [facility] Mobility Raw Score: 20 CURRENT [facility] Mobility Functional Limitation/Modifier: 35.83% Currently Impaired in Basic Mobility - CJ Interventions: Assessment & Plan: Patient was admitted for [facility] (per chart review) and seen for therapy [...] PT Goals Plan of Care by Gladys Clark, PT at 06/01/2023 2:17 PM Version 1 [...] Service Intracerebral Hemorrhage Note IDENTIFYING INFORMATION Kaia De Paz MR# [id number] 05/31/2023 HISTORY OF PRESENT ILLNESS Kaia De Paz is a 67 y.o. female with a [...] or hemoptysis. INTERVAL HISTORY 05/30: Admitted to [facility]. Neurosurgery consulted. Ordered malignancy screen with CT [...] Intracerebral Hemorrhage Score Intracerebral Hemorrhage (ICH) Scale [place] Coma Scale Points: 0-->GCS 13-15 Age>/=80: 0-->no [...] NG tube Daily documented [facility] Plan of care note Problem: CHEESE FACTORY WORKER - Cognition Goal: Memory: Strategy Training - [...] to improve functional independence Outcome: Ongoing Problem: CHEESE FACTORY WORKER - Language Goal: Word Retrieval Strategies for Conversation - Patient will state and/or demonstrate understanding of trained strategies targeting anomia with no more than set-up cues to use strategies during functional conversation to reduce communication breakdowns Outcome: Ongoing [facility] 06-01-2023 Plan of care note Problem: OT [...] IADLs, and functional mobility tasks. Outcome: Ongoing [facility] 06-01-2023 Plan of care note Neurosurgery Update: [...] questions. Issac Toledo MD, Neurosurgery NS2 ([id number]) [facility] Work Phone: 05-31-2023 Consult note Formatting of [...] math. 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 She has had headache for the last 4 days. At the Outside hospital [place] [facility] CT brain showed a right [...] fellow clinic after MRI. Alyssa Schultz MD [facility] 05-31-2023 Consult note Formatting of th is [...] math. 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 She has had headache for the last 4 days. At the Outside hospital [place] [facility] CT brain showed a right [...] Consult:hemorrhagic mass versus intraparenchymal hemorrhage, small SAHContact Number:[id number] [facility] Ms. Kaia De Paz is a 67 y.o. female w/ GERD, [...] 0.9% w/potassium cl 75 mL/hr at 05/30/23 4497 Scheduled Meds [START ON 05/31/2023] Levothyroxine 50 [...] AND WITHOUT CONTRAST (Results Pending) A/P: Kaia De Paz is a 67 y.o. female w/ GERD, [...] admission to neurovascular Staff: Back Covering: NS2 ([id number]) ## neurosurgery coverage changes at 529/1729; if 30 or 1729 has passed since original consult note placed, [...] Note I have seen and examined Kaia De Paz, reviewed her images, and agree with the [...] 2-3 weeks History of Present Illness Kaia De Paz is a 67 y.o. female with PMH [...] Score (Calculated) 0 filed on 05/30/20232225 Modified Carbon Scale Score Premorbid (MRSS) 0 filed on [...] mg 4 mg Intravenous Q6H PRN Hernesto Motnelongo MD Or Ondansetron (ZOFRAN) tablet 4 mg [...] no drift Left Leg: no drift Coordination: Wptleo-hm-lviu intact bilaterally. Goee-so-mosj intact bilaterally. Rapid alternating movements are normal. Sensation: intact to light touch throughout without extinction. Gait: Deferred Laboratory Results Diagnostics/Procedures: Labs-CBC WBC/Hgb/Hct/Plts: 6.54/12.6/38.6/231 (05/30 2150) Labs-Chem 7([facility]) Bun/Creat/Cl/CO2/Glucose: 13/0.80/105/26/96 (05/30 2150) Na/K+/Phos/Mg/Ca: 137/3.7/3.5/2.1/8.5 (05/30 2150) Labs-Coags Ptt/Pt/Inr: 30.9/13.6/1.1 (05/30 2150) Additional Labs No results found for: CHOLESTEROL, TRIG, HDL, LDLCALC, LDLDIRECT Labs-Hemoglobin A1C No results found for: HGBA1C Imaging Imaging was not analyzed by [facility] CT Stroke Head: R frontal IPH + cortical SAH + surrounding edema no MLS CTA Brain/Neck: Negative spot sign. CT Perfusion: N/A Assessment/Impression Kaia De Paz presents with ICH likely due to tumor [...] Continuous telemetry -PT, OT, Speech and social security specialist consults Other problems: Complexity. Obesity Body mass [...] questions, please contact the neurovascular team resident shift production associate listed on [employer]. The author of this note does not necessarily reflect the individual shift production associate. Please page the on-call resident with urgent questions, as IS Secure Chat is not a reliable method for urgent needs. Signed, Hernesto Montelongo MD PGY-2, Neurology documented in [facility] 05-31-[facility] Nurse Note On admission to B10E, from ED a dual RN initial assessment of skin condition was performed by Ignacia Humpherys RN and Mariana SANCHEZ. Skin Assessment: Skin within defined limits:Yes Diogo Score: 21 LDA Added:No Ignacia Humphreys RN [facility] 05-31-2023 Physician Emergency department Note Received on sign out Vitals: 05/31/23 0400 BP: 128/61 Pulse: 80 Resp: 23 Temp: SpO2: 95% ED Course as of 05/31/236 Wed May 30, 20237 Admit to neurovasc PCU. Stroke vs brain mass. Normal Exam. Nayely May 31, [id number] Called to room for an episode of n/v and reported SOB. The patient told me the SOB resolved after vomiting. She denies any abnormal intraoral swelling or other odd sensation. Breathing unlabored. Speaking appropriated. No oral swelling. No stridor. Lungs CTAB. HR and SpO2 normal. Will order a dose of Zofran and continue to monitor. Lynn hSetty MD Resident 05/31/23435 [facility] Work Phone: 05-30-2023 Consult note Formatting of th is note is different from the original. Neurosurgery Consult Note Reason for Consult:hemorrhagic mass versus intraparenchymal hemorrhage, small SAHContact Number:[id number] HPI Ms. Kaia De Paz is a 67 y.o. female w/ GERD, [...] 0.9% w/potassium cl 75 mL/hr at 05/30/23 9507 Scheduled Meds [START ON 05/31/2023] Levothyroxine 50 [...] AND WITHOUT CONTRAST (Results Pending) A/P: Kaia De Paz is a 67 y.o. female w/ GERD, [...] Note I have seen and examined Kaia De Paz, reviewed her images, and agree with the resident's assessment and plan. I have discussed the situation with the patient and family. The patient presents with a diagnosis of spontaneous right frontal hemorrhage. The treatment plan is work up for a structural cause. Based on the history and exam, I agree with the medical decision making with the following comment(s): none . [facility] Work Phone: 05-30-2023 Note Acute Coronary Syndr ome (ACS): Initial Evaluation and Management: [email or web address] [email or web address] [facility] 05-30-2023 Note Formatting of this n ote might be different from the original. I recertify that this patient requires inpatient services at this time. Inpatient services are due to the following medical concerns brain bleed. Plans for post hospitalization care will be discharge to [facility] . [facility] 05-30-2023 Consult note Formatting of th is note is different from the original. Neurovascular Evaluation Note Evaluation Date: 05/30/2023 Unit: [id number] Consultation was requested by Dr. Hussain Limon MD Patient status: Inpatient Length of stay: 0 days Reason for Consult/Chief Complaint Hemmoraghic stroke alert: confusion 2-3 weeks History of Present Illness Kaia De Paz is a 67 y.o. female with PMH [...] (Calculated) 0 filed on 05/30/2023 2226 Modified Delfina Scale Score Premorbid (MRSS) 0 [...] no drift Left Leg: no drift Coordination: Wdsmqk-cw-smsv intact bilaterally. Zhji-qk-keip intact bilaterally. Rapid alternating movements are normal. Sensation: intact to light touch throughout without extinction. Gait: Deferred Laboratory Results Diagnostics/Procedures: Labs-CBC WBC/Hgb/Hct/Plts: 6.54/12.6/38.6/231 (05/30 2150) Labs-Chem 7([facility]) Bun/Creat/Cl/CO2/Glucose: 13/0.80/105/26/96 (05/30 2150) Na/K+/Phos/Mg/Ca: 137/3.7/3.5/2.1/8.5 (05/30 2150) Labs-Coags Ptt/Pt/Inr: 30.9/13.6/1.1 (05/30 2150) Additional Labs No results found for: CHOLESTEROL, TRIG, HDL, LDLCALC, LDLDIRECT Labs-Hemoglobin A1C No results found for: HGBA1C Imaging Imaging was not analyzed by [facility] CT Stroke Head: R frontal IPH + cortical SAH + surrounding edema no MLS CTA Brain/Neck: Negative spot sign. CT Perfusion: N/A Assessment/Impression Kaia De Paz presents with ICH likely due to tumor [...] Continuous telemetry -PT, OT, Speech and social security specialist consults Other problems: Complexity. Obesity Body mass [...] questions, please contact the neurovascular team resident shift production associate listed on [employer]. The author of this note does not necessarily reflect the individual shift production associate. Please page the on-call resident with urgent questions, as [employer] Secure Chat is not a reliable method for urgent needs. Signed, Hernesto Montelongo MD PGY-2, Neurology [facility] 05-30-2023 Emergency department Note 37 yo F pt transferred to from [place] ER as a Level A hemorrhagic Stroke Alert. Pt has been feeling fuzzy for 2-3 weeks and family finally convinced pt to come to ER. CTH at [facility] showed subacute bleed. Pt arrives to CT scanner w/ ER and neurovasc teams at bedside. A&Ox4, VSS [facility] 05-30-2023 Emergency department Note Department of Pharmacy Emergency Department Stroke Alert Response Note Patient Name: Kaia De Paz Room/Bed: E036/E036 A Pharmacist responded to the [...] further questions. Name: Kimberly Matias RPH Phone: [phone] Date/Time: 05/30/2023 9:34 PM [facility] Work Phone: 05-30-2023 Physician Emergency department Note DEPARTMENT OF EMERGENCY MEDICINE CHIEF COMPLAINT No chief complaint on file. HPI Kaia De Paz is a 67 y.o. female with history [...] COURSE & MEDICAL DECISION MAKING Assessment: Kaia De Paz is a 67 y.o. female who presents [...] occasionally occur. Julia Davis DO Resident 05/30/23 8703 [facility] Work Phone: 05-30-2023 Emergency department Note ED SW responded to hemorrhagic stroke. Pt is a transfer from [facility] medic #[id number], who reports spouse is aware of transfer, but will not be coming to [facility] ED tonight. Pt is alert and following commands appropriately at this time. Spouse's number for medical updates: Enmanuel De Paz Spouse [phone] Pt also has her adult child listed: Mariely Tello Child [phone] SW to remain available for any additional needs. KUMAR Fernandez [phone] Addend: Son at bedside. Son denies any needs at this time. KUMAR Fernandez [phone] [facility] 05-30-2023 Emergency department Note Bed: E036 Expected date: Expected time: Means of arrival: Comments: sudha [facility] 04-09-2023 Instructions Ashely Pearl OD - 04/09/2023 10:25 AM EST ASSESSMENT/PLAN: [...] wearing most comfortable. documented in this encounter [facility] 04-09-2023 History of Present illness Narrative [...] month for CL check wearing most comfortable. Ashely Pearl, MAYITO I have confirmed and edited as necessary the relevant ophthalmic history, ROS, and the neuro exam findings as obtained by others. I have seen and examined this patient. documented in this encounter [facility] 09-01-2022 History of Present illness Narrative [...] direct supervision of Zoya Schmitz PTA. [facility] Work Phone: 06-15-2022 Physician Emergency department Note Emergency Department Report [facility] EMERGENCY DEPARTMENT Service Date:.06/16/22 PCP: Edgar Holbrook Chief Complaint: Chief Complaint Patient presents with Abdominal Pain Pt c/o abdominal pain and nausea worsening throughout the day with fever. Pt denies vomiting. Pt reports exposed to strep; denies sore throat, cough. HPI Kaia De Paz is a 67 y.o. female presents to the ED today due to Abdominal pain. Patient states she's had upper abdominal pain that started this morning. She's had nausea without vomiting. She states 3 days ago she did have several episodes of diarrhea but that resolved. Prior abdominal surgery for endometriosis. She did not take any medication [id number] for symptomatic relief. Review of Systems: Review [...] YELLOW YELLOW APPEARANCE, URINE CLEAR CLEAR Specific [place], Urine >1.030 (H) 1.010 - 1.025 PH [...] WITH CONTRAST Final Result IMPRESSION:a 1. Mild radni mesentery representing a nonspecific finding. 2. Diverticulosis [...] . . Obed Hull MD 06/16/22 0059 [facility] 06-15-2022 Emergency department Note Emergency Department Report [facility] EMERGENCY DEPARTMENT Service Date:.06/16/22 PCP: Edgar Holbrook Chief Complaint: Chief Complaint Patient presents with Abdominal Pain Pt c/o abdominal pain and nausea worsening throughout the day with fever. Pt denies vomiting. Pt reports exposed to strep; denies sore throat, cough. HPI Kaia De Paz is a 67 y.o. female presents to the ED today due to Abdominal pain. Patient states she's had upper abdominal pain that started this morning. She's had nausea without vomiting. She states 3 days ago she did have several episodes of diarrhea but that resolved. Prior abdominal surgery for endometriosis. She did not take any medication [id number] for symptomatic relief. Review of Systems: Review [...] YELLOW YELLOW APPEARANCE, URINE CLEAR CLEAR Specific [place], Urine >1.030 (H) 1.010 - 1.025 PH [...] MD 06/16/22 0059 documented in this encounter [facility] 04-27-2022 Miscellaneous Notes faxed [facility] doing a follow up call as they faxed mammography release on 04/20 requesting reports and have not received them advised to fax release again. documented in this encounter [facility] 03-07-2022 Instructions Breonna Juarez PA-C - 03/07/2022 2:05 PM EDT Recc: Tea Tree oil face wash ([employer]) Warm compresses to affected lids(s) 15 min twice daily. (Can try Summer mask, found on [employer] or at drug stores), followed by lid scrubs twice daily with dilute baby shampoo. Return precautions given. Follow up as needed documented in this encounter [facility] 03-07-2022 History of Present illness Narrative [...] time Recc: Tea Tree oil face wash ([employer]) Warm compresses to affected lids(s) 15 min twice daily. (Can try Summer mask, found on [employer] or at drug [employer]), followed by lid scrubs twice daily with [...] 2022 2:04 PM documented in this encounter [facility] 02-07-2022 Instructions Jonah Farley APRN.[employer]ESS HELPER - 02/07/2022 1:59 PM EDT Discussed course of chalazion/stye Can have waxing/waning course, can have others Plugged oil glands-->inflammation ball Discussed intralesional kenalog vs medical mgmnt Patient elects: medical management Recc: Tea Tree oil face wash ([employer]) Warm compresses to affected lids(s) 15 min twice daily. (Can try Summer mask, found on [employer] or at drug stores), followed by lid scrubs twice daily with dilute baby shampoo. Maxitrol ointment (or drop) to affected eyes(s) twice daily x 2 weeks. Discussed risk of developing cataracts or glaucoma with long-term use. Discussed risk of infection with concomitant use of CLs. Return precautions given. Follow up in 4-6 weeks if not resolved, possible further treatment. documented in this encounter [facility] 02-07-2022 History of Present illness Narrative Patient states that for about 1 month she has had a lesion on the upper right eyelid. Patient has been seeing Dr. Pearl for the problem and has used eyedrops as well as Erythromycin ointment, with no resolution to the issue, didn't seem to do anything at all, per patient. Patient denies any new or worsening flashes, floaters or field defects. Patient reports some intermittent itching of that eyelid. Current Ocular Medications: None currently. A/p: 1. chalazion right upper lid x [address] Pearl 01/12/22 - started on erythromycin and doxycycline [...] daily. (Can try Summer mask, found on [employer] or at drug stores), followed by lid [...] 2022 1:57 PM documented in this encounter [facility] 01-26-2022 Instructions Yobani Pearl II OD - 01/26/2022 9:55 AM EDT Assessment and Plan D23.111 Benign neoplasm of skin of right upper eyelid (primary encounter diagnosis) Comment: Recommend consult with Dr. Mccollum's group. Appointment made. I have confirmed and edited as necessary the relevant ophthalmic history, ROS, and the neuro exam findings as obtained by others. I have seen and examined Kaia De Paz. I have discussed the case and the management of this patient's care with the Resident/Fellow, if applicable. I also have reviewed and agree with the assessment and plan as stated above and agree with all of its relevant components. Yobani Pearl II OD documented in this encounter [facility] 01-26-2022 History of Present illness Narrative Assessment and Plan D23.111 Benign neoplasm of skin of right upper eyelid (primary encounter diagnosis) Comment: Recommend consult with Dr. Mccollum's group. Appointment made. I have confirmed and edited as necessary the relevant ophthalmic history, ROS, and the neuro exam findings as obtained by others. I have seen and examined Kaia De Paz. I have discussed the case and the management of this patient's care with the Resident/Fellow, if applicable. I also have reviewed and agree with the assessment and plan as stated above and agree with all of its relevant components. Yobani Pearl II OD documented in this encounter [facility] 01-12-2022 Kristel Pearl OD - 01/12/2022 4:38 PM EDT ASSESSMENT/PLAN: [...] as 2 weeks. documented in this encounter [facility] 01-12-2022 History of Present illness Narrative [...] the emergency room. Return as 2 weeks. Ashely Pearl, MAYITO I have confirmed and edited as necessary the relevant ophthalmic history, ROS, and the neuro exam findings as obtained by others. I have seen and examined this patient. documented in this encounter [facility] 12-13-2021 Instructions Georgina Jordan MA - [...] contact the office. documented in this encounter [facility] 12-13-2021 History of Present illness Narrative Kaia De Paz is a 66 year old female who presents for problem visit of postmenopausal bleeding. Last week started spotting bright red blood and had to wear a pad for a couple of days. Denies any pain or cramping. Yesterday had small amount of darker brown blood. Postmenopausal over 15 years. No history of AUB. OB History T2 L2 SAB0 IAB0 Ectopic0 Multiple0 Live Births2 Space Planner History LMP: 05/07/2005, Postmenopausal Age at Menarche: Age at First : Age at Menopause: Space Planner History Comments: Sexual Activity: Not Asked; Male; [...] external genitalia normal, normal Bartholin's glands, urethra, [place]'s glands, no vulvar lesions, no cervical lesions, good vaginal support, physiologic discharge present, normal appearing perineal body and perianal region, cystocele 2nd degree BIMANUAL: uterus normal size, shape and consistency, no adnexal masses, and non-tender NEURO: alert and oriented x3,exam grossly non-focal EXTREMITIES: normal ASSESSMENT/PLAN: 1. Post-menopausal bleeding - ICD9: 627.1, ICD10: N95.0 (primary diagnosis) - PELVIC US I - ENDOMETRIAL BIOPSY - SURGICAL PATHOLOGY 2. [...] which included preparing to see the patient, [id number] patient care, completing clinical documentation, obtaining and/or [...] Piper Rahman APRN.CNM documented in this encounter [facility] Discharge summary Note Date/Time December 27, 2024 12:31pm [facility] Medical Records Department [address] [place] [address] Emergency Department Summary 12/27/24 MR#: [id number] Acct: [id number] Name: KAIA DE PAZ Rep #:[id number] : [id number] 69 From: Cm Vasques MD PCP: Dr. Romeo Shankar MD Status:REG E R Location: ED HPI HPI - GI History of Present Illness Chief Complaint: Abd Pain Informant: patient Narrative Narrative: 69-year-old female states she woke up this morning with burning pain in her right abdomen that radiates to her low back feels a little sharp there. She hada very small bowel movement this morning that did not seem to make a difference. No urinary symptoms, no nausea or vomiting. No fevers or chills or chest symptoms. No history of any abdominal surgeries in the past. She has been having constipation/bowel movement caliber changes in the past month, so she hada colonoscopy because of that about a week ago and was told she has diverticulosis but was otherwise unremarkable. She states she did not have any discomfort after dinner last night or prior to going to bed at all, and she has not had anything to eat yet today. PFSH PFSH Medical History Bilirubinuria Urinary frequency Confusion Spinal stenosis Back pain Hyperlipidemia GERD (gastroesophageal reflux disease) Osteoarthritis Hypothyroid Home Medications ?Medication ?Instructions ?Recorded ?Last Taken ?Type levothyroxine 50 mcg tablet 50 mcg PO DAILY 05/04/20 0 05/12/20 History omeprazole 20 mg capsule,delayed 20 mg PO DAILY PRN GE RD 05/04/20 05/12/20 History release rosuvastatin 10 mg tablet 5 mg PO DAILY 05/04/20 Unkno wn History cholecalciferol (vitamin D3) 50 50 mcg PO DAILY Unknown History mcg (2,000 unit) capsule (Vitamin D3) Allergy/AdvReac Type Severity Reaction Status Date / Time Penicillins Allergy Mild Rash Verified 12/27/24 09:32 Family History Father Diabetes Mother Parkinson disease Surgical History History of radiofrequency ablation (RFA) of nerve of lumbar spine H/O laparoscopy Social History household members: spouse housing: house Smoking Status: Never smoker alcohol intake: never what type of physical activity do you participate in: none do you feel safe at home: Yes ROS ROS ED Constitutional Constitutional ED: Denies chills or fever(s) Eyes Eyes: Denies change in vision or diplopia ENT ENT ED: Denies rhinorrhea or sore throat Cardiovascular Cardiovascular: Denies chest pain or palpitations Respiratory/Chest Respiratory/Chest: Denies cough or dyspnea Gastrointestinal Gastrointestinal: Reports abdominal pain and constipation; Denies diarrhea, hematochezia, melena, nausea or vomiting Genitourinary Genitourinary ED: Denies dysuria or hematuria Musculoskeletal Musculoskeletal: Denies back pain or neck pain Integumentary Denies abscess or rash Neurologic Neurologic: Denies headache(s), paresthesias or weakness Psychiatric Psychiatric: Denies anxiety or suicidal thoughts EXAM Physical Exam Const Vital Signs: 12/27/24 09:32 12/27/24 11:31 Temperature 98.6 F Temperature Source Oral Pulse Rate 50 L 49 L Respiratory Rate 18 Blood Pressure 141/72 H 130/70 H Blood Pressure Mean 95 90 Pulse Ox 97 96 Oxygen Delivery Method Room Air Room Air Positive well nourished and well developed Constitutional Narrative: Well-appearing no distress General Appearance ED: well developed and NAD HEENT Reports moist mucous membranes normocephalic and atraumatic Eyes PERRL and EOMs intact bilaterally Neck full ROM and supple Resp normal respiratory effort and clear to auscultation bilaterally Cardio regular rate, regular rhythm and no murmurs GI non-distended GI Narrative: Mild tenderness throughout the right abdomen from about McBurney's point all theway up to the lateral aspect of the costal margin. No guarding or rebound. Negative [place]. No other areas of abdominal tenderness, normal inspection of the abdominal wall and no palpable masses. Auscultation: normoactive bowel sounds Palpation: soft Back/Spine no CVA tenderness General Back: other FROM Extremity normal to inspection General Extremety ED: Negative for edema, pulses abnormal or tenderness General Extremity: Negative for edema or pulses abnormal Neuro oriented x3, CN's II-XII intact bilaterally and no sensory deficits noted Sensorium / Orientation: awake and alert Motor Exam: strength 5/5 throughout Skin no rashes or lesions noted and no wounds MDM MDM MDM Narrative Medical decision making narrative: Broad differential here including early appendicitis, less likely cholecystitis,less likely obstructive uropathy/ureterolithiasis, pyelonephritis, also possiblefunctional bowel pain/disorder, may or may not be related to constipation, may or may not have right sided diverticulitis. Screening with labs, urinalysis, CTof the abdomen/pelvis and giving her an oral dicyclomine in the meantime. I reviewed her labs which were all normal including urinalysis, CT of the abdomen and pelvis was reviewed by myself as well as radiology I agree with the report, it is essentially negative/normal. In the meantime, patient is actuallyfeeling much better without any further discomfort after the dicyclomine. Patient reassured, she is likely having some bowel related pain, it is possible that it is constipation-related with regards to bowel spasm. I am going to giveher a prescription for dicyclomine to use as needed, if she continues to have recurrence of discomfort advised to follow-up with her doctor she is comfortablewith that plan. However, with the negative CT and a white blood count of 4.6 with no leftward shift or bandemia my suspicion for early appendicitis is extremely low. Lab Data Attestation: I reviewed the patient's lab results. Labs: Laboratory Results - last 24 hr 12/27/24 12/27/24 10:05 10:40 WBC 4.6 RBC 4.47 Hgb 13.2 Hct 40.3 MCV 90.2 MCH 29.5 MCHC 32.8 RDW Std Deviation 47.5 H RDW Coeff of Ami 14.3 Plt Count 205 MPV 10.2 Immature Gran % (Auto) 0.200 Neut % (Auto) 64.9 Lymph % (Auto) 24.7 Hickman % (Auto) 8.0 Eos % (Auto) 2.0 Baso % (Auto) 0.2 Absolute Neuts (auto) 3.0 Absolute Lymphs (auto) 1.14 Nucleated RBC % 0 Sodium 142 Potassium 4.2 Chloride 106 Carbon Dioxide 24.2 Anion Gap 12 BUN 12 Creatinine 0.88 Estim Creat Clear Calc 68.89 Est GFR (MDRD) Non-Af 72 BUN/Creatinine Ratio 14.1 Glucose 109 H Calcium 9.4 Total Bilirubin 0.38 AST 30 ALT 20 Alkaline Phosphatase 69 Total Protein 7.0 Albumin 4.2 Globulin 2.8 Albumin/Globulin Ratio 1.5 Urine Color Yellow Urine Clarity Clear Urine pH 8.0 Ur Specific [place] 1.010 Urine Protein 15 H Urine Glucose (UA) Normal Urine Ketones Negative Urine Occult Blood Negative Urine Nitrite Negative Urine Bilirubin Negative Urine Urobilinogen Normal Ur Leukocyte Esterase 25 H Urine RBC 0 SEEN Urine WBC 0 SEEN Ur Squamous Epith Cells 0-5 SEEN Urine Bacteria 0 SEEN Urine Mucus 0 SEEN Radiography Diagnostic Testing: Clinical Impression(s) from Imaging Studies Abdomen/Pelvis CT 12/27/24 09:53 IMPRESSION: No acute abdominopelvic abnormalities. Reading Location: [facility] Discharge Plan Triage Chief Complaint: Abd Pain Other Complaint: Flank Pain ED Provider: Cm Vasques Dx/Rx/DC Orders Clinical Impression: Right sided abdominal pain, Constipation Instructions: ED Constipation (Adult) Prescriptions: No Action levothyroxine 50 mcg tablet 50 mcg PO DAILY rosuvastatin 10 mg tablet 5 mg PO DAILY omeprazole 20 mg capsule,delayed release(DR/EC) 20 mg PO DAILY PRN (Reason: GERD) Patient Comments: cholecalciferol (vitamin D3) [Vitamin D3] 50 mcg (2,000 unit) capsule 50 mcg PO DAILY Primary Care Provider: Romeo Shankar Chi Referrals: Romeo Shankar Chi, MD [Primary Care Provider] - 3-5 Days if not improving Print Language: Samoan Disposition Disposition: Home, Self Care What to do if you have Problems For any increased pain, shortness of breath, bleeding, nausea or vomiting, chestpain, or any unexpected problems, contact your Primary Care Provider. Call [facility] ([phone]) or report to the closest Emergency Room. Call 911 if necessary. 12/27/24 1231 <Electronically signed by Cm Vasques MD> Cosigner Signature (if applicable): CC: Dr. Romeo Shankar MD ~ Signed [facility] Work Phone: Evaluation note* Diagnosis Post-menopausal bleeding- Primary Postmenopausal bleeding Abnormal uterine bleeding (AUB) Encounter for screening for malignant neoplasm of cervix Screening for malignant neoplasm of the cervix [facility] Diagnosis PMB (postmenopausal bleeding)- Primary Postmenopausal bleeding [facility] Diagnosis Hordeolum externum of right upper eyelid- Primary Hordeolum externum [facility] Diagnosis Benign neoplasm of skin of right upper eyelid- Primary [facility] noteNo assessment information availableWKettering Health Work Phone: Evaluation note* Diagnosis Chalazion of right upper eyelid- Primary Chalazion documented in this [facility]* Diagnosis Chalazion right upper eyelid- Primary documented in this [facility]* Diagnosis Pain of upper abdomen- Primary Abdominal pain, other specified site Nausea Nausea alone [facility] Hyperopia of both eyes- Primary Regular astigmatism of both eyes Regular astigmatism Presbyopia - Both Eyes Presbyopia documented in this encounter [facility] note* Diagnosis Onset Date Resolution Status Back pain acute Bilirubinuria acute Confusion acute Spinal stenosis acute Urinary frequency acute [facility] Work Phone: Evaluation note* Diagnosis Brain bleed- Primary Intracerebral hemorrhage Brain bleed Intracerebral hemorrhage Cerebrovascular accident (CVA), unspecified mechanism [facility] Brain bleed Intracerebral hemorrhage [facility] Diagnosis PMB (postmenopausal bleeding)- Primary Postmenopausal bleeding Vaginal irritation Unspecified noninflammatory disorder of vagina Encounter for screening for malignant neoplasm of cervix Screening for malignant neoplasm of the cervix [facility] Diagnosis Bacterial vaginitis- Primary Vaginitis and vulvovaginitis, unspecified documented [facility] this encounter [facility]* Diagnosis Hyperopia of both eyes- Primary Regular astigmatism of both eyes Regular astigmatism Presbyopia - Both Eyes Presbyopia [facility] Present [...] pain, range of motion/joint mobility and strength. [facility] Work Phone: History of Present illness [...] . * Response to treatment: decreased pain. [facility] Work Phone: History of Present illness [...] . * Response to treatment: decreased pain. [facility] Work Phone: Hiszbqo of Present illness NarrativePatient tolerated treatment without increased pain. Patient has Fair TrA and keeps intact with ther-ex. Patient needing one UE support with LE ther-ex and no UE support with 100% unloading. Patient has good form/understanding with ther-ex and keeps body in good alignment. Added abdominals ther-ex to program. Continue with core stability while performing dyn activity to decrease back pain.[facility] Work Phone: Hiszdhs of Present illness Narrative* Patient needs cues for correct form and encouragement throughout PRE. * Added hip IR d/t excessive ER in B LE; L >R. * Cues to IR the hips during side steps d/t compensations. * Good technique with pelvic tilt in supine. * Continues with tightness to the R during LTR. * Guard with transfers. [facility] Work Phone: Hisczvs of Present illness Narrative* Pt reassessed this [...] complete today's treatment with some difficulty. [facility] Work Phone: History of Present illness [...] to complete today's treatment with some difficulty. [facility] Work Phone: History of Present illness [...] to complete today's treatment with some difficulty. [facility] Work Phone: History of Present illness Narrative* [...] to complete today's treatment with some difficulty. [facility] Work Phone: History of Present illness [...] to complete today's treatment with some difficulty. [facility] [employer] Work Phone: History of Present illness Narrative* Improved glute strength progression as able. * Improved ability to complete transfers with decreased guarding. * Improved core activation for standing DLS. * Response to treatment: decreased pain, decreased muscle guarding and improved posture. * Patient was able to complete today's treatment with some difficulty. [facility] [facility] Work Phone: History of Present illness Narrative* [...] to complete today's treatment with some difficulty. [facility] Work Phone: History of Present illness Narrative* [...] to complete today's treatment with some difficulty. [facility] Work Phone: History of Present illness Narrative* arrives to outpatient PT c/o . Pt presents with the following impairments: . These impairments contribute to difficulty in activity limitations and participation restrictions including . Thept s signs and symptoms are consistent with likely . The pt will benefit from skilled PT [id number]/week for 8 weeks to address the above stated impairments and functional limitations to maximize p articipation and ease in household, social, and work related activities. The pt has a prognosis when considering positive factors including with barriers such as . The pt verbalized understanding and agreement to goals and POC. Thank you for this referral and please call [phone] with any questions or concerns. * Clinical Presentation: Stable and/or uncomplicated characteristics. * Level of Complexity: low * Problem List: activity limitations, ADLs/IADLs/self care skills, decreased knowledge of HEP, flexibility, gait/locomotion, pain, participation restrictions, range of motion/joint mobility and strength. [facility] Work Phone: History of Present illness Narrative* Kaia De Paz, a 67 year old female, arrives to [...] you for this referral and please call [phone] any questions or concerns. * Clinical Presentation: Stable and/or uncomplicated characteristics. * Level of Complexity: low * Problem List: activity limitations, ADLs/IADLs/self care skills, decreased knowledge of HEP, flexibility, gait/locomotion, pain, participation restrictions, range of motion/joint mobility and strength. [facility] Work Phone: History of Present illness [...] the direct supervision of Zoya Schmitz PTA. [facility] Work Phone: History of Present illness Narrative* [...] the direct supervision of Zoya Schmitz PTA. [facility] Work Phone: History of Present illness Narrative* Patient identified by name and * Patient 4 minutes late, and asked to leave early d/t dentist appt. Patient appropriately challengedwith palof press this date and able to tolerate proprioception with mild difficulty. Does demo slight difficulty with isometric palof walkout but able to complete reps. [facility] Work Phone: Hisowih of Present illness Narrative* Patient identified by name and * Mild exacerbation of pain with paloff DLS. * Improved eccentric control with bridges. * Decreased guarding with bed mobility and transfers. [facility] Work Phone: History of Present illness NarrativePatient identified by name and date of . Patient was able to progress with seated exercises and step ups with focus on TrA/glut contractions. She presented with palpable tension with STW that responded well with reduction of Sx after treatment.[facility] Work Phone: History of Present illness Narrative* Patient identified by name and date of . * Discussed with patient positions to help decrease pain, like sitting with lumbar support. * Also discussed positions to avoid like lumbar extension. * Fatigues quickly with resisted DLS and seated exercises on dynadisc. * Tightness along L piriformis this date with relief after STW completion. [facility] Work Phone: History of Present illness NarrativePt [...] and symptom management at this time. [facility] Work Phone: Hospital Discharge instructions* Attachments The following attachments cannot be sent through Care Everywhere. * Abdominal Pain (Samoan) [facility]* Attachments The following attachments cannot be sent through Care Everywhere. * [facility] SMOKING CESSATION LINKS [facility] for [facility] (narrative)* Outpatient Procedure (Routine) - Pending Review Specialty Diagnoses / Procedures Referred By Jaron german Referred To Contact [facility] Diagnoses Abnormal uterine bleeding (AUB) Procedures ENDOMETRIAL BIOPSY ENDOMETRIAL BX W/WO ENDOCERVIX BX W/O DILAT SPX Piper Rahman APRN.CNM [address] [place] [address] [address] Referral ID Status Reason Start Date Expiration Date Visits Requested Visits Authorized [id number] Pending Review Auto-Generat ed Referral 12/13/2021 12/13/2022 1 1 * Diagnostic Procedure Only (Routine) - Authorized Specialty Diagnoses / Procedures Referred By Jaron german Referred To Contact [facility] Diagnoses Abnormal uterine bleeding (AUB) Procedures PELVIC US WHI US PELVIC NONOBSTETRIC REAL-TIME IMAGE COMPLETE Piper Rahman APRN.CNM [address] [place] [address] [place] [id number] [place] [address] Referral ID Status Reason Start Date Expiration Date Visits Requested Visits Authorized [id number] Authorized Auto-Generat ed Referral 12/13/2021 12/13/2022 1 1 [facility]arr[facility])No reason for referral information availableWKettering Health Work Phone: Reason for visit Narrative* Initial Evaluation . lumbar stenosis/spondylosis/spondylolisthesis. * Referred by: Chay Ramírez DO [facility] Work Phone: Reason for visit Narrative* Initial Evaluation . Sacrum disorder, lumbosacral IV disc, lumbosacral radiculitis/spondylosis, spondylolisthesis lumbar region, arthropathy of lumbar facet. * Referred by: Kait Oneil [facility] Work Phone: Reason for visit Narrative* Initial Evaluation . Sacrum disorder, lumbosacral IV disc, lumbosacral radiculitis/spondylosis, spondylolisthesis lumbar region, arthropathy of lumbar facet. 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 Livin g Will 07/25/2019 8:14 AM Advance Directive Response Recorded Date/ Time Living Will Yes January 28, 2022 8:08am Power of Quality Management Coordinator Yes January 8:08am Name of Medical Power of Quality Management Coordinator artur arevalo January 28, 2022 8:08am Advance Directive Response Recorded Date/ Time Name of Medical Power of Quality Management Coordinator marquis whitman May 30, 2023 3:39pm Living Will Yes May 30 3:39pm Power of Quality Management Coordinator Yes May 30, 2023 3:39pm Latest Code Status on File Code Status Date Activated Date Inactivated Comments Full Code 05/30/2023 10:25 PM Advance Directive Response Recorded Date/ Time Do you have a Healthcare Power of Quality Management Coordinator? Yes December 27, 2024 10:09am Reason for Referral Status Reason Specialty Diagnoses / Procedures Referre d By Contact Referred To Contact Closed Cardiology Diagnoses Palpitation Procedures Holter monitor - 24 hour Edgar Holbrook MD [address] [place] [address] Specialty Diagnoses / Procedures Referred By Jaron german Referred To Contact Occupational Therapy Diagnoses Brain bleed Alyssa Schultz MD [address] [place] [address] Referral ID Status Reason Start Date Expiration Date V isits Requested Visits Authorized [id number] New Request 06/01/2023 06/25/2024 1 1 Specialty Diagnoses / Procedures Referred By Contcynthia t Referred To Contact Speech Therapy Diagnoses Brain bleed Alyssa Schultz MD [facility] [place] [address] Referral ID Status Reason Start Date Expiration Date V isits Requested Visits Authorized [id number] New Request 06/01/2023 06/25/2024 1 1 Scheduling Instructions [facility] [address] [facility], 2nd [place] [address] Fax Outpatient Rehabilitation [facility] [place] [address], [address] [place], [place] [id number] FAX Outpatient Rehabilitation Outpatient Care [address] [place] [address] [phone] FAX [facility] [address] [place] [address] FAX [facility] [address] [place] [address] FAX Specialty Diagnoses / Procedures Referred By Contac t Referred To Contact Diagnoses Brain bleed Procedures MRI BRAIN WITH AND WITHOUT CONTRAST NM MRI BRAIN COMBO Alyssa [facility]ultz [facility] [place] [address] Referral ID Status Reason Start Date Expiration Date V isits Requested Visits Authorized [id number] New Request 06/01/2023 06/25/2024 1 1 Specialty Diagnoses / Procedures Referred By Jaron t Referred To Contact Physical Therapy Diagnoses Brain bleed Alyssa Schultz MD [address] [place] [address] [place] [address] Referral ID Status Reason Start Date Expiration Date V isits Requested Visits Authorized [id number] New Request 06/01/2023 06/25/2024 1 1 Scheduling Instructions [facility] [address] [facility], 2nd [place] [address] Fax [facility] (Neck and Back Therapy) [address] [place] [address] FAX [facility] [address] [place] [address] FAX Outpatient Rehabilitation [facility] [place] [address] [facility], [address] [place] [address] FAX [facility] at [place] [address] [place], [place] [id number] FAX [facility] at [facility] [address], [address] [place] [address] FAX [facility] [address] [place] [address] [phone] FAX Outpatient Rehabilitation Outpatient Care [address], [address] [place] [address] [phone] FAX [facility] [address] [facility], [address] [place] [address] [phone] FAX [facility] at [address], Room: [address] [place] [address] [phone] FAX [facility] [place] [address] [facility], [address] [place] [address] FAX [facility] at [facility] [address] [place] [address] [phone] FAX [facility] at [facility] [place] [address] [facility], [address] [place] [address] [phone] FAX [facility] [address] [facility], [address] [place] [address] FAX Outpatient Rehabilitation [facility] [place] [address] [facility], [address] [place] [address] [phone] FAX [facility] [address] [facility], [address] [place] [address] [phone] FAX [facility] [place] [address] [facility], [place] [address] FAX [facility] [employer] [address] [place] [address] FAX Outpatient Rehabilitation Outpatient Care [place] [address] [facility], [address] [place] [address] FAX [facility] at [facility] [address] [place] [address] FAX Outpatient Care [address] [address] FAX [facility] at [facility], Room [address] [place] [address] FAX Referral ID Status Reason Start Date Expiration Date V isits Requested Visits Authorized [id number] New Request 06/01/2023 06/25/2024 1 1 Specialty Diagnoses / Procedures Referred By Contac t Referred To Contact Neurology Diagnoses Brain bleed Alyssa Schultz MD [address] [facility] [place] [place] [address] Referral ID Status Reason Start Date Expiration Date V isits Requested Visits Authorized [id number] New Request 06/01/2023 06/25/2024 1 1 Specialty Diagnoses / Procedures Referred By Contac t Referred To Contact Procedures DVT/VTE RISK ASSESSMENT Alyssa Schultz MD [address] [facility] [place] [place] [address] Referral ID Status Reason Start Date Expiration Date V isits Requested Visits Authorized [id number] New Request 05/30/2023 06/23/2024 1 1 Specialty Diagnoses / Procedures Referred By Contac t Referred To Contact Procedures ECG Hussain Limon MD [address] [place] [address] Referral ID Status Reason Start Date Expiration Date V isits Requested Visits Authorized [id number] New Request 05/30/2023 06/23/2024 1 1 Referral ID Status Reason Start Date Expiration Date V isits Requested Visits Authorized [id number] New Request 05/30/2023 06/23/2024 1 1 Specialty Diagnoses / Procedures Referred By Jaron german Referred To Contact Diagnoses Brain bleed Procedures MRI BRAIN WITHOUT CONTRAST MRI BRAIN WITH AND WITHOUT CONTRAST NM MRI BRAIN COMBO NM MRI BRAIN Melony Madsen MD [address] [place] [address] Assessments Diagnosis Palpitation Palpitations Chief Complaint and [...] LOWER LEG PAIN AND SWELLING November 1:08pm Chief Complaint Admit Date lower extremity November 28, 2024 12:4 1pm RT LOWER LEG PAIN AND SWELLING November 1:08pm abd December 27, 2024 9: 31am Medications Administered Section Inactive Administered Medications - up to 3 most recent administrations Medication Order MAR Action Action Date Dose Rate Site tropicamide 1 % 1 Drop (MYDRIACYL) 1 Drop, BOTH EYES, ONCE, 1 dose, On 04/09/23 at 1030, FOR THE EYE Given 04/09/2023 10:30 AM EST 1 Drop Additional Source Comments INFORMATION SOURCE (unrecogn ized section and content) DATE CREATED AUTHOR 01/08/2019 [facility] DATE CREATED AUTHOR AUTHOR'S ORGANIZ ATION 07/25/2019 [facility] DATE CREATED AUTHOR AUTHOR'S ORGANIZ ATION 07/31/2019 [facility] DATE CREATED AUTHOR AUTHOR'S ORGANIZ ATION 11/16/2021 [facility] DATE CREATED AUTHOR AUTHOR'S ORGANIZ ATION 11/18/2022 [employer] DATE CREATED AUTHOR AUTHOR'S ORGANIZ ATION 11/18/2022 [facility] DATE CREATED AUTHOR AUTHOR'S ORGANIZ ATION 08/16/2023 [facility] DATE CREATED AUTHOR AUTHOR'S ORGANIZ ATION 02/16/2024 [facility] DATE CREATED AUTHOR AUTHOR'S ORGANIZ ATION 12/30/2024 [facility] DATE CREATED AUTHOR AUTHOR'S ORGANIZ ATION 01/03/2025 [facility] Reason for Visit (unrecogniz ed section and content) Status Reason Specialty Diagnoses / Procedures Referre d By Contact Referred To Contact Closed Cardiology Diagnoses Palpitation Procedures Holter monitor - 24 hour Edgar Holbrook MD [address] [place] [address] Reason Comments Vaginal Bleeding 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 Reason Comments Eye Crusting Right Eye [...] To Contact Diagnoses Brain bleed [facility] [address] [place] [address] [facility] [address] [place] [address] Referral ID Status Reason Start Date Expiration Date Visits Re quested Visits Authorized [id number] 1 1 Specialty Diagnoses / Procedures Referred By Contac t Referred To Contact Diagnoses Brain bleed Procedures MRI BRAIN WITHOUT CONTRAST MRI BRAIN WITH AND WITHOUT CONTRAST NM MRI BRAIN COMBO NM MRI BRAIN Melony Madsen MD [address] [facility] [place] [address] Referral ID Status Reason Start Date Expiration Date V isits Requested Visits Authorized [id number] New Request 06/01/2023 06/25/2024 1 1 Source Comments (unrecognize d section and content) In the event this informatio n is protected by the Federal Confidentiality of Alcohol and Drug Abuse Patient Records regulations: The Federal rules restrict any use of the information to criminally investigate or prosecute any alcohol or drug abuse patient.[facility] the event this information is protected by the Federal Confidentiality of Alcohol and Drug Abuse Patient Records regulations: The Federal rules restrict any use of the information to criminally investigate or prosecute any alcohol or drug abuse patient.[facility] the event this information is protected by the Federal Confidentiality of Alcohol and Drug Abuse Patient Records regulations: The Federal rules restrict any use of the information to criminally investigate or prosecute any alcohol or drug abuse patient.[facility] the event this information is protected by the Federal Confidentiality of Alcohol and Drug Abuse Patient Records regulations: The Federal rules restrict any use of the information to criminally investigate or prosecute any alcohol or drug abuse patient.[facility] the event this information is protected by the Federal Confidentiality of Alcohol and Drug Abuse Patient Records regulations: The Federal rules restrict any use of the information to criminally investigate or prosecute any alcohol or drug abuse patient.[facility] the event this information is protected by the Federal Confidentiality of Alcohol and Drug Abuse Patient Records regulations: The Federal rules restrict any use of the information to criminally investigate or prosecute any alcohol or drug abuse patient.[facility] Hospital[facility] the event this information is protected by the Federal Confidentiality of Alcohol and Drug Abuse Patient Records regulations: The Federal rules restrict any use of the information to criminally investigate or prosecute any alcohol or drug abuse patient.[facility] Hospital[facility] the event this information is protected by the Federal Confidentiality of Alcohol and Drug Abuse Patient Records regulations: The Federal rules restrict any use of the information to criminally investigate or prosecute any alcohol or drug abuse patient.[facility] Hospital[facility] the event this information is protected by the Federal Confidentiality of Alcohol and Drug Abuse Patient Records regulations: The Federal rules restrict any use of the information to criminally investigate or prosecute any alcohol or drug abuse patient.[facility] Hospital[facility] the event this information is protected by the Federal Confidentiality of Alcohol and Drug Abuse Patient Records regulations: The Federal rules restrict any use of the information to criminally investigate or prosecute any alcohol or drug abuse patient.[facility] Hospital[facility] the event this information is protected by the Federal Confidentiality of Alcohol and Drug Abuse Patient Records regulations: The Federal rules restrict any use of the information to criminally investigate or prosecute any alcohol or drug abuse patient.[facility] Hospital[facility] the event this information is protected by the Federal Confidentiality of Alcohol and Drug Abuse Patient Records regulations: The Federal rules restrict any use of the information to criminally investigate or prosecute any alcohol or drug abuse patient.[facility] HospitalIn the event this information is protected by the Federal Confidentiality of Alcohol and Drug Abuse Patient Records regulations: The Federal rules restrict any use of the information to criminally investigate or prosecute any alcohol or drug abuse patient.[facility] Care Teams (unrecognized sec tion and content) Home Staging Specialist Relationship Specialty Start Date End Date Edgar Hol[place] [address] PCP - General 07/25/04 Home Staging Specialist Relationship Specialty Start Date End Date Edgar Hol[place] [address] PCP - General 07/25/04 Home Staging Specialist Relationship Specialty Start Date End Date Edgar Hol[place] [address] PCP - General 07/25/04 Home Staging Specialist Relationship Specialty Start Date End Date Edgar Hol[place] [address] PCP - General 07/25/04 Home Staging Specialist Relationship Specialty Start Date End Date Edgar Holbrook [place] [address] PCP - General 07/25/04 Home Staging Specialist Relationship Specialty Start Date End Date Edgar Holbrook [address] [place] [address] PCP - General 07/25/04 Home Staging Specialist Relationship Specialty Start Date End Date Edgar Holbrook MD [address] [place] [id number] PCP - General Family Medicine 06/15/22 Home Staging Specialist Relationship Specialty Start Date End Date Edgar Holbrook [address] [place] [address] PCP - General 07/25/04 Team Status: Active Member Role Status Dates Dr. Edgar Holbrook MD Family Provider Active Dr. Edgar Holbrook MD Primary Care Provider Active Team Status: Inactive Member Role Status Dates Dr. Edgar Holbrook MD Primary Care Provider, [facility] Provider Active Fortunato Peña PA, PA Attending Provider Active Team Status: Inactive Member Role Status Dates Dr. Edgar Holbrook MD Primary Care Provider Active Dr. Oliver Briggs MD Emergency Provider Active Home Staging Specialist Relationship Specialty Start Date End Date Edgar Holbrook MD PCP - General Family Medicine 06/15/22 05/31/23 Paulo Shankar MD [address] [place] [phone] PCP - General Internal Medicine 06/01/23 Team [...] MD Primary Care Provider, Attending Provider Active Home Staging Specialist Relationship Specialty Start Date End Date Paulo Shankar MD [address] [place] [phone] PCP - General Internal Medicine 06/01/23 Team [...] 2024 End: December 02, 2024 Team Status: Inactive Member [...] 2024 End: December 02, 2024 Team Status: Inactive Member Role/Relationship Status Dates Dr. Romeo Shankar MD Primary Care Provider Active Start: December 02, 2024 End: December 02, 2024 Dr. Romeo Shankar MD Attending Provider Active Start: December 02, 2024 End: December 02, 2024 Dr. Romoe Shankar MD Referring Provider Active Start: December 02, 2024 End: December 02, 2024 Team Status: Active Member Role/Relationship Status Dates Dr. Romeo Shankar MD Primary Care Provider Active Start: December 02, 2024 Dr. Romeo Shankar MD Referring Provider Active Start: December 02, 2024 Dr. Salomón White MD Attending Provider Active S tart: December 02, 2024 Team Status: Inactive Member Role/Relationship Status Dates Dr. Romeo Shankar MD Primary Care Provider Active Start: December 27, 2024 End: December 27, 2024 Dr. Cm Vasques MD Emergency Provider Active Start: December 27, 2024 End: December 27, 2024 Goals (unrecognized section and content) Goals [...] 2100 ($$New Bag$$ - Provider: Marika Easton RN)2305 (Stopped - Provider: Marika Easton RN) Sodium chloride 0.9% IV solution 75 mL (COMPLETED) 75 mL, Intravenous, ONCE, 1 dose, On Nayely 06/15/22 at 2214, Radiology Procedure 2148 ($$New Bag$$ - Provider: Winter Uribe)220 (Stopped - Provider: Marika Easton RN) Scheduled [...] Sun05/30/23 at 2215, Extravasation Risk, CT Procedure 2139 (Given - Radiology - Provider: Brittney Cast [...] 8.6 mg, Oral, DAILY, First dose on Nayely 05/31/23 at 0900, Until Discontinued 0850 (Not Given [...] Intravenous, EVERY 1 HOUR NEEDED, Starting on 05/30/23 at 2223, Until Sun06/01/23 at 1816, SBP [...] Intravenous, EVERY 1 HOUR NEEDED, Starting on 05/30/23 at 2223, Until Sun06/01/23 at 1816, SBP [...] 0927 (See Alternative - Provider: Ashely Christensen, RN) Ondansetron 4mg/2ml (ZOFRAN) injection 4 mg(Linked Group [...] Starting on Nayely 05/31/23 at 0436, Until Nayely 05/31/23 at 0438, Flush, CT Procedure 0438 (Given [...] BE BASED ON THE PRIMARY CLINICAL RECORDS. [employer] [facility]. provides no warranty or guarantee of the accuracy or completeness of information in this document.
[2025-04-12 02:22] LABS: Hematocrit 45.0 % (37-47); Hemoglobin 14.6 g/dL (12.0-15.0); Immature Granulocytes Count 0.030 X10^3/uL (0.0-0.0); Mean Corp Hgb Conc 32.4 g/dL (32-36); Mean Corpuscular Volume 90.2 fL (81-99); Mean Platelet Vol. 10.3 fl (6.2-12.0); NRBC Flagged by Analyzer 0 % (0-5); Platelet Count 235 K/mm3 (150-450); RBC Distribution Width CV 14.2 % (11.6-14.6); RBC Distribution Width SD 46.8 fl (35.1-43.9); Red Blood Count 4.99 M/mm3 (4.2-5.4); White Blood Count 7.4 K/mm3 (4.4-11.0)
--- NOTE | 2025-04-12 02:27 | NURSING ---
Pt back in room after CT. [facility] called and notified. Pt has large emesis
[2025-04-12 02:36] LABS: Prothrombin Time (Protime)PT. 12.2 SECONDS (11.7-14.9)
--- NOTE | 2025-04-12 02:36 | EDS_ITS ---
HPI History of Present Illness Chief Complaint: Stroke Alert Narrative Narrative: Patient was seen and examined after presenting to ED for prehospital stroke alert however last known well was 1900 she has a history of a hemorrhagic stroke in the past she has right-sided neglect she has some very minimal movement in response to pain on the right side she can withdraw her right foot she is not on blood thinners. PFSH PFSH Medical History Bilirubinuria Urinary frequency Confusion Spinal stenosis Back pain Hyperlipidemia GERD (gastroesophageal reflux disease) Osteoarthritis Hypothyroid Home Medications ?Medication ?Instructions ?Recorded ?Last Taken ?Type levothyroxine 50 mcg tablet 50 mcg PO DAILY 05/04/20 0 05/12/20 History omeprazole 20 mg capsule,delayed 20 mg PO DAILY PRN GE RD 05/04/20 05/12/20 History release rosuvastatin 10 mg tablet 5 mg PO DAILY 05/04/20 Unkno wn History cholecalciferol (vitamin D3) 50 50 mcg PO DAILY Unknown History mcg (2,000 unit) capsule (Vitamin D3) citalopram 10 mg tablet 10 mg PO DAILY 04/12/25 Unkn own History sennosides 8.6 mg-docusate sodium 2 tab PO BID 5 Unknown History 50 mg tablet (Senexon-S) Allergy/AdvReac Type Severity Reaction Status Date / Time Penicillins Allergy Mild Rash Verified 04/12/25 02:55 Family History Father Diabetes Mother Parkinson disease Surgical History History of radiofrequency ablation (RFA) of nerve of lumbar spine H/O laparoscopy Social History household members: spouse housing: house Smoking Status: Never smoker alcohol intake: never what type of physical activity do you participate in: none do you feel safe at home: Yes ROS ROS ED ROS Narrative Critical care caveat applies EXAM Physical Exam Narrative Exam Narrative: NIH is high patient is really unable to participate. She is neglecting her right side she withdrawals to pain on her right upper and lower extremity but there are minimal movements pupils are equal round reactive to light Const Vital Signs: 04/12/25 02:11 04/12/25 02:13 04/12/25 02:13 Temperature 98 F Temperature Source Oral Pulse Rate Respiratory Rate 20 H Blood Pressure Blood Pressure Mean Pulse Ox 97 94 Oxygen Delivery Method Room Air Room Air 04/12/25 02:21 04/12/25 02:36 04/12/25 02:43 Temperature 98.1 F 98.1 F Temperature Source Oral Oral Pulse Rate 82 84 Respiratory Rate 20 H 21 H Blood Pressure 139/79 H 134/84 H Blood Pressure Mean 99 100 Pulse Ox 98 98 94 Oxygen Delivery Method Room Air Room Air Room Air 04/12/25 02:51 04/12/25 03:04 04/12/25 03:14 Temperature 98.1 F 97.9 F 97.8 F Temperature Source Oral Temporal Temporal Pulse Rate 84 88 87 Respiratory Rate 19 H 20 H 17 Blood Pressure 140/72 H 160/81 H 148/72 H Blood Pressure Mean 94 107 97 Pulse Ox 93 93 95 Oxygen Delivery Method Venturi Mask Room Air Room Air 04/12/25 03:28 04/12/25 03:33 Temperature 97.9 F 97.9 F Temperature Source Temporal Pulse Rate 85 85 Respiratory Rate 19 H 19 H Blood Pressure 152/75 H 152/75 H Blood Pressure Mean 100 100 Pulse Ox 93 95 Oxygen Delivery Method Room Air MDM MDM MDM Narrative Medical decision making narrative: Nursing notes, triage notes, available previous documentation, and vital signs were reviewed. Any discrepancies noted were addressed. Differential Diagnoses: High suspicion for an intracranial bleed possible LVO Interventions: Zofran we will give her antihypertensive medications we may use nicardipine Labs Reviewed: No leukocytosis leukopenia or anemia or thrombocytopenia rest of labs are currently pending Imaging Reviewed: Personally reviewed and interpreted by me: CT reviewed in the CT suite she has an intraparenchymal bleed in the left side of her head is actually causing midline shift I did receive a call from radiologist who is confirming this EKG: Normal sinus rhythm rate of 86. EKG interpretation is noted and agreed to in the EMR. The interpretation of this patient's EKG contributed directly to the care and management of this patient. Previous Documentation Reviewed: None available or applicable at this time. ED Course: Patient presenting with symptoms as stated above she has a bleed it is intraparenchymal could have either been from hypertension or an ischemic stroke becoming hemorrhagic I did discuss with [facility] stroke team over the phone informed them of the findings on CT we are going to transfer to [facility] the [facility] physician is Dr. Ortez they are working on securing transport possibly by air. Patient is most definitely not a tenecteplase candidate 35 minutes of critical care time utilized in managing the patient. This is due to high probability of and deterioration of the patient based on the patient's condition and excludes any separately billable procedures. This note was made utilizing voice recognition software. All attempts were made to correct spelling or other errors prior to note completion. However, due to the fast-paced nature of emergency medicine, some errors may still be present. Lab Data Labs: Laboratory Results - last 24 hr 04/12/25 02:16 WBC 7.4 RBC 4.99 Hgb 14.6 Hct 45.0 MCV 90.2 MCH 29.3 MCHC 32.4 RDW Std Deviation 46.8 H RDW Coeff of Ami 14.2 Plt Count 235 MPV 10.3 Immature Gran % (Auto) 0.400 Neut % (Auto) 85.5 H Lymph % (Auto) 9.5 L [place] % (Auto) 4.3 Eos % (Auto) 0.0 Baso % (Auto) 0.3 Absolute Neuts (auto) 6.3 Absolute Lymphs (auto) 0.70 L Nucleated RBC % 0 PT 12.2 INR 0.9 APTT 26.0 Sodium 141 Potassium 3.8 Chloride 102 Carbon Dioxide 24.5 Anion Gap 15 BUN 15 Creatinine 0.88 Estim Creat Clear Calc 69.33 Est GFR (MDRD) Non-Af 71 BUN/Creatinine Ratio 16.7 Glucose 164 H Calcium 9.7 Troponin T High Sens 9 Radiography Diagnostic Testing: Clinical Impression(s) from Imaging Studies Brain CT 04/12/25 02:13 IMPRESSION: Left frontal/parietal acute intraparenchymal hematoma measuring 5.7 x 5.2 cm in its largest anteroposterior and transverse dimensions respectively. Moderate surrounding edema with effacement of the corresponding sulci. 4.5 mm midline shift to the right side. Mild diffuse cortical atrophy, commensurate with the patient's age. Unchanged right frontal chronic ischemic encephalomalacia. Scattered hypodense foci in the periventricular and subcortical white matter suggestive of chronic ischemic white matter disease. I discussed the findings with Dr. Tami Sung at 2:34 a.m. EST. Reading [facility]Neck [facility] 04/12/25 02:13 IMPRESSION: Atherosclerosis without high-grade stenosis. I discussed the findings with the nurse in charge who will inform Dr. Tami Sung at 3 a.m. EST. Reading [facility] Dis[facility] Plan Triage Chief Complaint: Stroke Alert ED Provider: Tami Sung Dx/Rx/DC Orders Clinical Impression: Hemorrhagic stroke, Right-sided visual neglect, History of hemorrhagic cerebrovascular accident (CVA) without residual deficits Prescriptions: No Action levothyroxine 50 mcg tablet 50 mcg PO DAILY rosuvastatin 10 mg tablet 5 mg PO DAILY omeprazole 20 mg capsule,delayed release(DR/EC) 20 mg PO DAILY PRN (Reason: GERD) Patient Comments: cholecalciferol (vitamin D3) [Vitamin D3] 50 mcg (2,000 unit) capsule 50 mcg PO DAILY citalopram 10 mg tablet 10 mg PO DAILY sennosides-docusate sodium [Senexon-S] 8.6-50 mg tablet 2 tab PO BID Primary Care Provider: Romeo Shankar Chi Referrals: Romeo Shankar Chi, MD [Primary Care Provider, Geriatrics] Print Language: Japanese Disposition Disposition: DC/Tx to Another Type of HCF Discharge Location: [facility] [place] Discharge Date/Time: 04/12/25 03:41
[2025-04-12 02:37] LABS: Partial Thromboplast Time 26.0 Seconds (24.1-36.2)
[2025-04-12 02:39] LABS: Anion Gap 15 (5-15); BUN 15 mg/dL (4-19); BUN/Creat Ratio 16.7 RATIO (10-20); Calcium,Total 9.7 mg/dL (7.6-11.0); Carbon Dioxide 24.5 mmol/L (21.0-32.0); Chloride 102 mmol/L (98-108); Estimated Creatinine Clearance 69.33 ml/min (50-250); Glucose 164 mg/dL (70-99); Potassium 3.8 mmol/L (3.3-5.1); Troponin T High Sensitivity 9 ng/L (<=14)
--- NOTE | 2025-04-12 02:39 | NURSING ---
Zeke from flight team called in for report and then was notified by karl that due to visability we will not be able to fly. They will call back with ground transport info.
--- NOTE | 2025-04-12 03:05 | NURSING ---
#16 FR Temp Ram placed with 10cc water baloon.
--- NOTE | 2025-04-12 03:40 | NURSING ---
Transport here, report given. Consent signed to transport per .
== END 2025-04-12 03:41 | disposition other institution (70) ==
PROVIDERS: Emergency Provider Specialist/Technologist Athletic Trainer; PCP Family Medicine Geriatric Medicine; Visit Provider Specialist/Technologist Athletic Trainer
DX: I69.112 Visuospatial deficit and spatial neglect following nontraumatic intracerebral hemorrhage (principal); E78.5 Hyperlipidemia, unspecified; E03.9 Hypothyroidism, unspecified; K21.9 Gastro-esophageal reflux disease without esophagitis
CPT/HCPCS: 70450; 70496; 70498; 80048; 84484; 85025; 85610; 85730; 93005; 96374; 99285; A4216; J2405